=== PATIENT | male | born 1970 | race Caucasian/White ===

== ENCOUNTER 2021-04-28 16:06 | Inpatient (IN) | payer BC, MEDICAID, SELFPAY ==
[2021-04-28] VITALS (11 sets, daily range): BP systolic 129–162; BP diastolic 69–85; PULSE 80–85; RESP 16–18; TEMP 36.3–37.7; O2SAT 94–98; BMI 35.9; BMI 35.1
--- NOTE | 2021-04-28 16:21 | RAD_ITS ---
We are attempting to reach an attending provider to discuss findings. An addendum with communication details will be sent when the communication is complete. STUDY: X-RAY - LEFT FOOT CLINICAL: Male, 50 years old. infection TECHNIQUE: 3 view(s) of the foot. COMPARISON: None. FINDINGS: No acute fracture or dislocation. No destructive bone changes. Mild periosteal reaction noted along the lateral metatarsal. Joint spaces are well-maintained. Normal alignment. Marked soft tissue swelling. Plantar and lateral soft tissue gas. RAD/Foot min 3 Views IMPRESSION: 1. Moderately extensive soft tissue gas in the lateral foot suspicious for necrotizing fasciitis. Electronically Signed: Aliza Vanessa MD at 18:22 EDT Tel , Service support ,
[2021-04-28] MEDS: 0.9% Normal Saline 1,000 ML 150 ML IV (16:50)
[2021-04-28 16:54] LABS: Absolute Neutrophil Count 16.4 X10^3/uL (2.0-7.7); Basophil# 0.03 X10^3/uL; Basophil% 0.1 % (0-1); Eosinophil# 0.17 X10^3/uL; Eosinophils% 0.8 % (0-5); Hematocrit 27.3 % (40-54); Hemoglobin 9.1 g/dL (13.0-16.5); Lymphocyte % 5.9 % (19-41); Mean Corp Hgb Conc 33.3 g/dL (32-36); Mean Corpuscular Hgb 29.4 pg (27.0-32.0); Mean Corpuscular Volume 88.1 fL (80-94); Mean Platelet Vol. 10.2 fl (6.2-12.0); Monocyte# 2.16 X10^3/uL; Monocyte% 10.7 % (0-10); NRBC Flagged by Analyzer 0 % (0-5); Neutrophil # 16.38 X10^3/uL (2.7-7.7); Neutrophil % 81.1 % (47-70); POSITIVE DIFFERENTIAL YES; Platelet Count 310 K/mm3 (150-450); RBC Distribution Width SD 41.7 fl (35.1-43.9); White Blood Count 20.2 K/mm3 (4.4-11.0)
[2021-04-28 17:07] LABS: Anion Gap 11 (5-15); BUN 45 mg/dL (7-18); BUN/Creat Ratio 24.6 RATIO (10-20); Calcium,Total 8.7 mg/dL (8.5-10.1); Chloride 99 mmol/L (98-107); Creatinine, Serum 1.83 mg/dL (0.70-1.30); EST Glomerular Filtration Rate 42 mL/min (>60); Est Glom Filt Rate - Afr Amer 51 mL/min (>60); Estimated Creatinine Clearance 54.58 ml/min; Glucose 314 mg/dL (74-106); Potassium 4.6 mmol/L (3.5-5.1); Sodium Level 132 mmol/L (136-145)
[2021-04-28 17:19] LABS: Lactic Acid 1.7 mmol/L (0.4-1.9)
[2021-04-28 18:01] LABS: Differential Indicated SCAN CRITERIA MET; Platelet Estimate ADEQUATE (ADEQ)
[2021-04-28 18:02] LABS: Differential Comment SCANNED; Red Cell Morphology NORM C+C NORMAL (NORM C&C)
--- NOTE | 2021-04-28 18:37 | EX.ED.DYSGE1 ---
HPI History of Present Illness Chief Complaint: Lower Extremity Injury Informant: patient and spouse/S.O. Onset/Context/Timing Onset: Days Current Severity: Moderate Maximum Severity: Moderate Narrative Narrative: Patient present secondary to left foot wound. Patient has a history of diabetes, coronary disease, hypertension. He states about 2 weeks ago he had his feet propped up and someone noticed a wound on the bottom of his foot. Is approximately 1-1/2 cm in diameter. He was seen by a pressurization mechanic in [place] this past week who did a local debridement and placed him on doxycycline. When family changed the dressing last evening they noted the wound was significantly worse and is now extending up the outside of his foot. He had some chills last evening as well. [facility] Medical History Coronary artery disease HTN (hypertension) Type 2 diabetes mellitus Home Medications ascorbic acid (vitamin C) [Vitamin C] 500 mg PO Q12H 04/28/21 [History Last Taken Unknown] aspirin 81 mg PO DAILY 04/28/21 [History Last Taken Unknown] canagliflozin [Invokana] 100 mg PO DAILY 04/28/21 [History Last Taken Unknown] carvedilol 25 mg PO DAILY 04/28/21 [History Last Taken Unknown] doxycycline monohydrate 100 mg PO BID 04/28/21 [History Last Taken Unknown] furosemide [Lasix] 40 mg PO DAILY 04/28/21 [History Last Taken Unknown] lisinopril 20 mg PO DAILY 04/28/21 [History Last Taken Unknown] metformin 1,000 mg PO BID 04/28/21 [History Last Taken Unknown] Allergy/AdvReac Type Severity Reaction Status Date / Time No Known Allergies Allergy Verified 04/28/21 16:09 Surgical History (Updated 04/28/21 @ 17:04 by Shahzad Koehler) History of ear, nose, and throat (ENT) surgery History of quadruple bypass no surgical history Social History Smoking Status: Never smoker ROS ROS ED Constitutional Constitutional ED: Reports chills; Denies fever(s) Eyes Eyes: Denies change in vision ENT ENT ED: Denies sore throat Cardiovascular Cardiovascular: Denies chest pain Respiratory/Chest Respiratory/Chest: Denies cough or dyspnea Gastrointestinal Gastrointestinal: Denies abdominal pain, diarrhea, nausea or vomiting Genitourinary Genitourinary ED: Denies dysuria Musculoskeletal Musculoskeletal: Denies back pain Integumentary Reports rash and other Details: Left foot wound Neurologic Neurologic: Denies headache(s) or weakness Psychiatric Psychiatric: Denies anxiety or depression Endocrine Endocrinology: Denies polydipsia or polyuria Allergic/Immunologic Allergic/Immunologic ED: Denies urticaria EXAM Physical Exam Const Vital Signs: 04/28/21 16:07 Temperature 98.5 F Temperature Source Temporal Pulse Rate 83 Respiratory Rate 16 Blood Pressure 141/75 H Blood Pressure Mean 97 Pulse Ox 98 Oxygen Delivery Method Room Air Positive well nourished and well developed General Appearance ED: well developed HEENT Reports normocephalic and head/scalp atraumatic Eyes PERRL and EOMs intact bilaterally Neck supple Chest Wall inspection of chest normal and palpation of chest normal Resp normal respiratory effort and clear to auscultation bilaterally Cardio regular rate and regular rhythm GI normal to inspection, nondistended, normoactive bowel sounds Palpation: soft Extremity Extremity Narrative: 1-1/2 cm diameter ulceration to the plantar surface of the left foot near the fourth and fifth metatarsal head. Patient has a wound extending up the lateral side of the foot measuring a total of 8 x 5 cm. Neuro oriented x3 Sensorium / Orientation: alert Psych mental status grossly normal Skin no rashes or lesions noted MDM MDM MDM Narrative Medical decision making narrative: Lab work and blood cultures are ordered. Left foot x-rays are ordered. Patient is given Zosyn and vancomycin. Lab Data Attestation: I reviewed the patient's lab results. Labs: Laboratory Results - last 24 hr 04/28/21 04/28/21 04/28/21 16:30 16:30 16:30 WBC 20.2 H RBC 3.10 L Hgb 9.1 L Hct 27.3 L MCV 88.1 MCH 29.4 MCHC 33.3 RDW Std Deviation 41.7 RDW Coeff of Shant 13.0 Plt Count 310 MPV 10.2 Immature Gran % (Auto) 1.400 H Neut % (Auto) 81.1 H Lymph % (Auto) 5.9 L [place] % (Auto) 10.7 H Eos % (Auto) 0.8 Baso % (Auto) 0.1 Absolute Neuts (auto) 16.4 H Absolute Lymphs (auto) 1.20 Nucleated RBC % 0 Differential Comment SCANNED Diff Path Review May foll Platelet Estimate ADEQUATE RBC Morphology NORM C+C Sodium 132 L Potassium 4.6 Chloride 99 Carbon Dioxide 22.0 Anion Gap 11 BUN 45 H Creatinine 1.83 H Estim Creat Clear Calc 54.58 Est GFR (MDRD) Af Amer 51 L Est GFR (MDRD) Non-Af 42 L BUN/Creatinine Ratio 24.6 H Glucose 314 H Lactic Acid 1.7 Calcium 8.7 Radiography Diagnostic Testing: Radiology Impression Foot X-Ray 04/28/21 16:21 IMPRESSION: 1. Moderately extensive soft tissue gas in the lateral foot suspicious for necrotizing fasciitis. Electronically Signed: Aliza Vanessa MD at 18:22 EDT Tel , Service support , ADDENDUM: 04/28/21 1836 IMPRESSION: 1. Moderately extensive soft tissue gas in the lateral foot suspicious for necrotizing fasciitis. N.B. : The above Results were Read Back by Aliza Vanessa MD to Mabel Carvajal MD, and understanding confirmed on 04/28/2021 18:29:51 (ET). Electronically Signed: Aliza Vanessa MD at 18:22 EDT Tel , Service support , Treatment and Re-Evaluation Comments:: Foot x-rays per my interpretation reveal gas in the soft tissues. Radiologist did call with formal impression. White count is elevated to 20. Creatinine is 1.83, unknown baseline. Lactic acid is 1.7. I was able to review some labs the patient had drawn yesterday. At that time white count was 19.2 and creatinine was 1.57. I spoke with Dr. Gerber, on-call for podiatry. She will be coming into the hospital to evaluate the patient for treatment. I will speak with the hospitalist regarding admission as well. Discharge Plan Triage Chief Complaint: Lower Extremity Injury ED Provider: Mabel Carvajal Dx/Rx/DC Orders Clinical Impression: Diabetic foot infection, Necrotizing fasciitis Prescriptions: No Action furosemide [Lasix] 40 mg Tablet 40 mg PO DAILY RF: 0 carvedilol 25 mg Tablet 25 mg PO DAILY RF: 0 lisinopril 20 mg Tablet 20 mg PO DAILY RF: 0 doxycycline monohydrate 100 mg Capsule 100 mg PO BID RF: 0 metformin 1,000 mg Tablet 1,000 mg PO BID RF: 0 aspirin 81 mg Tablet 81 mg PO DAILY RF: 0 ascorbic acid (vitamin C) [Vitamin C] 500 mg Tablet Extended Release 500 mg PO Q12H RF: 0 Invokana 100 mg Tablet 100 mg PO DAILY RF: 0 Primary Care Provider: Karen Giang Referrals: Karen Giang PA [Primary Care Provider] - Disposition Disposition: Acute Care Hospital [facility]
--- NOTE | 2021-04-28 20:09 | EKG12_ITS ---
Test Reason : PRE-OP Blood Pressure : / mmHG Vent. Rate : 081 BPM Atrial Rate : 081 BPM P-R Int : 176 ms QRS Dur : 152 ms QT Int : 432 ms P-R-T Axes : 049 -76 038 degrees QTc Int : 501 ms Normal sinus rhythm Left axis deviation Right bundle branch block Inferior infarct , age undetermined Abnormal ECG Confirmed by ROLA ALEXANDRA, PAO ([id number]), newspaper photo editor MALOU CALLAHAN ([id number]) on 05/01/2021 10:42:41 AM Referred By: JULISSA Confirmed By:PAO CANELA MD
--- NOTE | 2021-04-28 20:12 | HP.PCM.HOS_ITS ---
[facility] - General General Date of Service: 04/28/21 Chief Complaint: Left foot wound, pain. [facility] Narrative GO VANESSA, is a 50 M with past medical history as mentioned above presented to the emergency room because of left foot wound and pain. This problem started 2 weeks ago with small wound in the bottom of his left foot associated with mild erythema and pain. Initially, the pain was mild but has been progressive. Pain is on the lateral aspect of the left foot, mainly when he stands up, dull aching pain, not radiating, 6-7 out of 10 in severity aggravated by standing on the left foot, associated with increasing erythema and swelling and without relievin g factor. Patient stated that the last couple of days, the wound area started to get bigger, black discolored and he continued to have left foot pain. He reported chills, no fever. He was seen at outside facility around 1 week ago, had local debridement and he was started on doxycycline. Patient stated that he did not see any improvement and last night, the wound got worse and extended up to the dorsal aspect of the left foot. In the emergency department, his blood pressure was not elevated, other vital signs were stable. Routine blood work was remarkable for leukocytosis, hemoglobin 9.1 g/dL, BUN is 45, creatinine is 1.83. Blood glucose was 314. Lactic acid was 1.7. X-ray of the left foot revealed extensive soft tissue gas in the lateral foot suspicious for necrotizing fasciitis. Patient is being admitted for left foot diabetic infection/left foot cellulitis/infected wound with suspected necrotizing fasciitis and he was found to have anemia and acute kidney injury. [facility] Home Medications ascorbic acid (vitamin C) [Vitamin C] 500 mg PO Q12H 04/28/21 [History Last Taken Unknown] aspirin 81 mg PO DAILY 04/28/21 [History Last Taken Unknown] canagliflozin [Invokana] 100 mg PO DAILY 04/28/21 [History Last Taken Unknown] carvedilol 25 mg PO DAILY 04/28/21 [History Last Taken Unknown] doxycycline monohydrate 100 mg PO BID 04/28/21 [History Last Taken Unknown] furosemide [Lasix] 40 mg PO DAILY 04/28/21 [History Last Taken Unknown] lisinopril 20 mg PO DAILY 04/28/21 [History Last Taken Unknown] metformin 1,000 mg PO BID 04/28/21 [History Last Taken Unknown] Allergy/AdvReac Type Severity Reaction Status Date / Time No Known Allergies Allergy Verified 04/28/21 16:09 no significant family history Surgical History (Updated 04/28/21 @ 20:[address] Annia Brenner MD) History of ear, nose, and throat (ENT) surgery History of quadruple bypass Social History (Updated 04/28/21 @ 20:[address] Annia Brenner MD) Smoking Status: Never smoker alcohol intake: never ROS Constitutional Constitutional: Reports chills; Denies anorexia, fatigue, fever(s) or malaise Eyes Eyes: Denies blurry vision, change in eye color, change in vision, double vision or eye pain ENT HEENT: Denies ear discharge, ear pain, epistaxis, headache(s), nasal congestion, post nasal drip or sore throat Cardiovascular Cardiovascular: Denies chest pain, dyspnea on exertion, edema, lightheadedness, orthopnea, palpitations, paroxysmal nocturnal dyspnea or syncope Respiratory/Chest Respiratory/Chest: Denies cough, dyspnea, hemoptysis, productive cough, shortness of breath at rest, shortness of breath with exertion or wheezing Gastrointestinal Gastrointestinal: Denies abdominal pain, constipation, diarrhea, hematemesis, hematochezia, melena, nausea or vomiting Genitourinary Genitourinary: Denies burning urination, dysuria, hematuria, urinary hesitancy or urinary urgency Musculoskeletal Musculoskeletal: Reports other Details: Left foot pain and redness. ; Denies arthralgias, back pain, joint pain, joint swelling, myalgias or neck pain Neurologic Neurologic: Denies confusion, dizziness, focal weakness, headache(s), numbness, paresthesias, seizures, tingling, tremor(s) or vertigo Psychiatric Psychiatric: Denies anxiety, depression, hallucinations, homicidal ideation or suicidal ideation Endocrine Endocrinology: Denies change in body appearance, cold intolerance, heat intolerance, polydipsia or polyuria Hematologic/Lymphatic Hematologic/Lymphatic: Denies easy bleeding, easy bruising or lymphadenopathy Allergic/Immunologic Allergic/Immunologic: Denies itchy eyes, rhinitis, hives or wheezing Vital Signs Vital Signs Vital Signs: 04/28/21 16:07 04/28/21 19:52 Temperature 98.5 F 99.8 F H Temperature Source Temporal Oral Pulse Rate 83 80 Respiratory Rate 16 16 Blood Pressure 141/75 H 162/85 H Blood Pressure Mean 97 110 Pulse Ox 98 96 Oxygen Delivery Method Room Air Room Air Weight Weight: 272 lb Body Mass Index (BMI) 35.9 Physical Exam Const alert, oriented x3, no apparent distress and no limitations General Appearance: cooperative HEENT normocephalic, head/scalp atraumatic, external ears normal, external nose normal and moist oral mucous membranes Eyes PERRL, EOMs intact bilaterally, conjunctivae normal and no scleral icterus General Eye: normal appearance of both eyes Neck no lymphadenopathy, supple, no meningeal signs, no JVD and no carotid bruits Lymph Lymphatic: no lymphadenopathy noted Resp normal respiratory effort, normal air movement and clear to auscultation bilaterally Auscultation: Negative for crackles, rales, rhonchi or wheezes Cardio regular rate, regular rhythm, S1 normal heart sound, S2 normal heart sound, no murmurs and no JVD GI normal to inspection, nondistended, normoactive bowel sounds, soft to palpation, non-tender and non-distended; Negative for hepatosplenomegaly GI Narrative: Obese. Extremity normal to inspection and full ROM Extremity Narrative: Trace edema, no clubbing or cyanosis. Skin no petechiae Skin Narrative: Left foot: Area of open wound/necrosis on the lateral aspect of the left foot, surrounded by significant erythema and edema, significant drainage. Tender to palpation. Neuro oriented x3, CN's II-XII intact bilaterally and moves all extremities Sensorium / Orientation: alert Speech: speech normal Motor Exam: strength 5/5 throughout Psych mental status grossly normal and affect normal Appearance: appropriate Results Lab / Micro Data Result Diagrams: 04/28/21 16:30 04/28/21 16:30 Labs: Laboratory Results - last 24 hr 04/28/21 04/28/21 04/28/21 16:30 16:30 16:30 WBC 20.2 H RBC 3.10 L Hgb 9.1 L Hct 27.3 L MCV 88.1 MCH 29.4 MCHC 33.3 RDW Std Deviation 41.7 RDW Coeff of Shant 13.0 Plt Count 310 MPV 10.2 Immature Gran % (Auto) 1.400 H Neut % (Auto) 81.1 H Lymph % (Auto) 5.9 L [place] % (Auto) 10.7 H Eos % (Auto) 0.8 Baso % (Auto) 0.1 Absolute Neuts (auto) 16.4 H Absolute Lymphs (auto) 1.20 Nucleated RBC % 0 Differential Comment SCANNED Diff Path Review May foll Platelet Estimate ADEQUATE RBC Morphology NORM C+C Sodium 132 L Potassium 4.6 Chloride 99 Carbon Dioxide 22.0 Anion Gap 11 BUN 45 H Creatinine 1.83 H Estim Creat Clear Calc 54.58 Est GFR (MDRD) Af Amer 51 L Est GFR (MDRD) Non-Af 42 L BUN/Creatinine Ratio 24.6 H Glucose 314 H Lactic Acid 1.7 Calcium 8.7 Radiology Impression Foot X-Ray 04/28/21 16:21 IMPRESSION: 1. Moderately extensive soft tissue gas in the lateral foot suspicious for necrotizing fasciitis. Electronically Signed: Aliza Vanessa MD at 18:22 EDT Tel , Service support , ADDENDUM: 04/28/21 1836 IMPRESSION: 1. Moderately extensive soft tissue gas in the lateral foot suspicious for necrotizing fasciitis. N.B. : The above Results were Read Back by Aliza Vanessa MD to Mabel Carvajal MD, and understanding confirmed on 04/28/2021 18:29:51 (ET). Electronically Signed: Aliza Vanessa MD at 18:22 EDT Tel , Service support , Assessment & Plan Assessment/Plan (1) Anemia: (2) VILMA (acute kidney injury): (3) Diabetic foot infection: (4) Necrotizing fasciitis: (5) Status post aorto-coronary artery bypass graft: (6) Coronary artery disease: (7) HTN (hypertension): (8) Diabetes mellitus, type 2: PLAN: This is a 50 years old male patient presented to the emergency room because of left foot wound, swelling and pain, found to have findings consistent with diabetic left foot infection/cellulitis/infected wound with suspected necrotizing fasciitis and also found to have acute kidney injury and anemia. #1 acute left foot diabetic foot infection/cellulitis/infected wound/suspected necrotizing fasciitis: Without evidence of sepsis or severe sepsis. X-ray of the left foot reviewed. Patient was evaluated by podiatry medicine and planning for surgery today. Plan: Admit to [facility] floor, telemetry monitoring, blood culture, wound culture, MRSA wound screen by DNA, Tylenol as needed, OxyIR as needed, IV fluids, Zofran as needed, start IV vancomycin and Zosyn, podiatry medicine consult, repeat CBC and CMP tomorrow morning, PT OT evaluation and treatment. Plan for surgery today. #2 acute kidney injury: Patient is unaware of any kidney problems in the past. Admission creatinine is 1.83, BUN is 45. Underlying CKD cannot be ruled out due to longstanding diabetes. Plan: Gentle IV fluids for hydration, input output chart, repeat BMP tomorrow morning, hold Lasix and Metformin. #3 anemia: Unknown if it is acute or chronic. It is normocytic anemia. Patient denies any active bleeding. Plan: Serum iron, ferritin, TIBC, B12, folate. #4 type 2 diabetes mellitus: ADA diet, Accu-Cheks, insulin sliding scale, check hemoglobin A1c, continue Invokana, hold Metformin. #5 CAD status post CABG: No complaints, no chest pain or shortness of breath. Plan: Routine EKG, continue aspirin, Coreg and lisinopril. #6 hypertension: Blood pressure slightly better in the ED, continue Coreg and lisinopril, start IV hydralazine as needed. #7 DVT prophylaxis: Subcu heparin. This note was generated with Active-[employer] dictation software. It may contain incorrect words, spelling, and punctuation that were not noted in checking the note before signing. Charges/Coding Visit Charges Inpatient E&M: 08476 Init Hosp L3
--- NOTE | 2021-04-28 20:17 | PCM.CONS.GEN ---
Assessment & Plan Assessment/Plan (1) Necrotizing fasciitis: (2) Non-pressure chronic ulcer of other part of left foot with necrosis of muscle: (3) Cellulitis of left foot: (4) Diabetic foot infection: (5) Coronary artery disease: (6) HTN (hypertension): (7) Diabetes mellitus, type 2: QUALIFIERS: Diabetes mellitus complication detail: with polyneuropathy Diabetes mellitus complication status: with neurologic complications Diabetes mellitus long term care social worker insulin use: without snf use Qualified Code(s): E11.42 - Type 2 diabetes mellitus with diabetic polyneuropathy PLAN: Patient seen and examined in the emergency department with present Patient noted to have ulceration with foot infection to the left lower extremity. Reviewed x-rays with the patient and demonstrating emphysema to the lateral and plantar aspect of the foot. Noted elevated white count of 20.2. Patient noted to have less of eaten at 3:30 this afternoon Upon exam examination the patient is noted the patient has some neuropathy but is still able to feel pain at the ulceration site. Wound probes to capsule and what is able to be felt of the bone feels hard upon initial exam. Discussed with patient and his the severity of the infection. Discussed various treatment options including bedside debridement, debridement in the OR, possible amputation, possible bone infection, antibiotics. Discussed that this is an infection that can lead to amputations. Discussed possibly getting an MRI to assess any bone infection involvement. Discussed that this would delay any possible surgeries in order to get this testing done. Given clinical exam as well as lab values and x-ray results it was determined that patient would go to the operating room in order to clean out the infection and assess clinically if the bone is infected at that time in order to save time. Use discussed possibility of saving the toe versus amputation with patient and the . Discussed it would be hard to identify the extent of the infection until getting into the operating room. Discussed the option of trying to save the digit with IV antibiotics if the bone is infected versus amputation. Patient is okay for amputation is felt to be necessary in order to remove the infection. Discussed possibility of wound care after the surgery in order to heal any remaining ulceration. Discussed possibility of wound VAC. Patient and are in agreement to move forward with surgical debridement of ulcerations cleaning out of the infection with possibility of amputation. Discussed with the patient all risk associated with undergoing surgery as regards to COVID-19 exposure. Discussed all risks, benefits, alternatives, and complications including but not limited to infection, delayed healing, nonhealing, blood clots, amputation, possible , and/or need for further surgery with the patient. No guarantees were given or implied. Patient agreed to proceed with the procedure. All questions answered. Discussed case with hospitalist and anesthesia both are on board with moving forward with surgery tonight pending EKG results. These are being obtained. Continue IV antibiotics with Zosyn and Vanc Podiatry will continue to follow on the floor. We will continue to follow the OR cultures. It is also noted the patient had ED wound and blood cultures obtained. Thank you for the consult please contact if any questions or concerns Alis Gerber DPM [facility] [phone] This note was generated with [employer] dictation software. It may contain incorrect words, spelling, and punctuation that were not noted in checking the note before signing. HPI Consult Data Date of Consult: 04/28/21 HPI Narrative HPI Narrative: GO VANESSA, is a 50 M who presents to the emergency department with left foot diabetic ulceration with his . Patient has an past medical history of diabetes, coronary artery disease, hypertension and recent cataract and eye surgery for diabetes complications. Patient relates that the wound started as a callus. He states that he chronically gets calluses in this area and he rips them off when they get really thick. Patient relates that this time he ripped it off about 2 weeks ago he had a wound and he saw a cotton gin yard supervisor in [place] for this wound last week where he was started on doxycycline had the wound debrided. He has been putting bag balm on the wound. Patient relates that he had an episode of nausea and vomiting with the antibiotic but he relates it to taking it on an empty stomach. 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 Patient relates that between Thursday morning Thursday evening that the ulceration got worse to the bottom as well as or tracking up the side of his foot. Patient noticed a malodor at that time and came to the emergency department this evening. He has since gotten pus out of it as well. Patient is noted to be diabetic. He states that he is last A1c in the mid 8% range which is down from 12% range. Patient relates that he has some neuropathy but still has feeling in his feet. Patient denies any nausea, fever, vomiting, chills, chest pain, shortness of breath. He does admit to some chills yesterday [facility] Medical History (Updated 04/28/21 @ 23:18 by Estuardo Luke) Anxiety Alex's palsy Myocardial infarct Home Medications ascorbic acid (vitamin C) [Vitamin C] 500 mg PO Q12H 04/28/21 [History Last Taken Unknown] aspirin 81 mg PO DAILY 04/28/21 [History Last Taken Unknown] canagliflozin [Invokana] 100 mg PO DAILY 04/28/21 [History Last Taken Unknown] carvedilol 25 mg PO DAILY 04/28/21 [History Last Taken Unknown] doxycycline monohydrate 100 mg PO BID 04/28/21 [History Last Taken Unknown] furosemide [Lasix] 40 mg PO DAILY 04/28/21 [History Last Taken Unknown] lisinopril 20 mg PO DAILY 04/28/21 [History Last Taken Unknown] metformin 1,000 mg PO BID 04/28/21 [History Last Taken Unknown] Allergy/AdvReac Type Severity Reaction Status Date / Time No Known Allergies Allergy Verified 04/28/21 16:09 Surgical History (Updated 04/28/21 @ 20:[address] Annia Brenner MD) History of ear, nose, and throat (ENT) surgery History of quadruple bypass Social History (Updated 04/28/21 @ 20:[address] Annia Brenner MD) Smoking Status: Never smoker alcohol intake: never ROS Constitutional Constitutional: Denies chills or fever(s) Cardiovascular Cardiovascular: Denies chest pain Respiratory/Chest Respiratory/Chest: Denies cough Gastrointestinal Gastrointestinal: Denies nausea or vomiting Musculoskeletal Musculoskeletal: Denies muscle cramps or muscle weakness Integumentary Integumentary: Reports wounds Neurologic Neurologic: Reports numbness and tingling Physical Exam Const alert and no apparent distress General Appearance: cooperative and comfortable HEENT Head and Scalp: atraumatic Resp normal respiratory effort Effort and Inspection: able to speak in complete sentences Extremity normal capillary refill and no calf tenderness General Extremity: edema left lower extremity and other findings Other Details: Capillary refill time less than 3 seconds noted to digits ; Negative for clubbing or cyanosis Peripheral Pulses: Yes posterior tibial pulses present bilateral diminished and dorsalis pedis pulses present bilateral diminished Skin General Skin Exam: atrophy and dry skin; Negative for ecchymosis, eschar, pallor or dermatitis Rashes: no rashes Wounds: wounds noted Wound Narrative: ulcers noted to left plantar fifth metatarsophalangeal joint at 1.5 cm diameter probing to capsule with a depth of 0.5 cm and lateral distal left foot measuring approximately 6-1/2 x 1.5 x 0.2 cm There is malodor, erythema, purulence, probing to capsule through the fifth metatarsophalangeal joint ulceration, mild streaking, fluctuation, some crepitus. Findings are consistent with emphysema seen on x-ray. Skin is atrophic and hairless. Purulent and serosanguineous drainage noted. Pain to palpation. Neuro Sensory Exam: extremities light-touch: decreased Motor Exam: strength 5/5 throughout Psych Appearance: appropriate Attitude: calm Lab / Micro Data Result Diagrams: 04/28/21 16:30 04/28/21 16:30 Labs: Laboratory Results - last 24 hr 04/28/21 04/28/21 04/28/21 16:30 16:30 16:30 WBC 20.2 H RBC 3.10 L Hgb 9.1 L Hct 27.3 L MCV 88.1 MCH 29.4 MCHC 33.3 RDW Std Deviation 41.7 RDW Coeff of Shant 13.0 Plt Count 310 MPV 10.2 Immature Gran % (Auto) 1.400 H Neut % (Auto) 81.1 H Lymph % (Auto) 5.9 L [place] % (Auto) 10.7 H Eos % (Auto) 0.8 Baso % (Auto) 0.1 Absolute Neuts (auto) 16.4 H Absolute Lymphs (auto) 1.20 Nucleated RBC % 0 Differential Comment SCANNED Diff Path Review May foll Platelet Estimate ADEQUATE RBC Morphology NORM C+C Sodium 132 L Potassium 4.6 Chloride 99 Carbon Dioxide 22.0 Anion Gap 11 BUN 45 H Creatinine 1.83 H Estim Creat Clear Calc 54.58 Est GFR (MDRD) Af Amer 51 L Est GFR (MDRD) Non-Af 42 L BUN/Creatinine Ratio 24.6 H Glucose 314 H Lactic Acid 1.7 Calcium 8.7 Radiology Impression Foot X-Ray 04/28/21 16:21 IMPRESSION: 1. Moderately extensive soft tissue gas in the lateral foot suspicious for necrotizing fasciitis. Electronically Signed: Aliza Vanessa MD at 18:22 EDT Tel , Service support , ADDENDUM: 04/28/21 1836 IMPRESSION: 1. Moderately extensive soft tissue gas in the lateral foot suspicious for necrotizing fasciitis. N.B. : The above Results were Read Back by Aliza Vanessa MD to Mabel Carvajal MD, and understanding confirmed on 04/28/2021 18:29:51 (ET). Electronically Signed: Aliza Vanessa MD at 18:22 EDT Tel , Service support ,
[2021-04-28 20:41] LABS: Bedside Glucose 222 mg/dL (70-110)
--- NOTE | 2021-04-28 20:53 | OP.PCM_ITS ---
Problems Associated Problem List Diagnoses (1) Cellulitis of left foot: (2) Non-pressure chronic ulcer of other part of left foot with necrosis of mu scle: (3) Diabetic foot infection: (4) Diabetes mellitus, type 2: (5) Necrotizing fasciitis: Report of Operation Date of Procedure: 04/28/21 Pre-Operative Diagnosis: Gas gangrene left foot Diabetic foot ulcer Cellulitis left foot Abscess left foot Post-Operative Diagnosis: Same Surgery/Procedure Performed:: Debridement left foot ulceration Description of Surgical Findings:: Hemostasis: Ankle tourniquet Anesthesia: 20 cc of one-to-one mix 0.5% Marcaine plain and 1% lidocaine plain Materials: quarter inch iodoform packing Surgeon: Alis Gerber temperature regulator pyrometer: None Type of Anesthesia: Local MAC Specimen's removed: soft tissue, culture swabs Drains: 11/05 iodoform packing Estimated Blood Loss (mL): <50 Description of Procedure: Indication for procedure: Patient is a 50-year-old male who presents emergency room with worsening left foot ulceration with his . Patient has a significant medical history of diabetes, coronary artery disease, hypertension. Patient had wound to his foot approximately 2 weeks in duration. Patient states that he saw a soc analyst in [place] last week and was started on doxycycline. Patient failed to improve and worsened yesterday and came to the emergency room tonight for worsening infection with increased odor and discoloration. X-rays were obtained showing emphysema to the plantar lateral aspect of the left foot. Podiatry was consulted and as well as hospitalist. Patient was admitted under the hospitalist and had surgical clearance obtained. Discussed with the patient and his the severity of the infection and need to go to the operating room in order to remove the infection. Discussed possibility of amputation if the wound was deep. Discussed delaying surgery in order to obtain MRI to further examine the extent of the infection versus going directly to the OR. It was decided to go directly to the OR and provide the best chance of saving the toe and clear the infection. Patient is aware that he will likely need long-term wound care after surgery with possible wound VAC therapy Discussed possibility of COVID exposure. Patient had all risk benefits alternatives the complications including but not limited to infection, delayed healing, nonhealing, need for further surgery or amputation was discussed with the patient. No guarantees were given or implied. Patient agreed to proceed with the procedure. All questions were answered. Description of procedure: Patient was seen in the preoperative holding area where chart was reviewed and patient was examined and all questions were answered to patient satisfaction. Patient then transferred to the OR and placed on the OR table in supine position. After administration of IV line IV sedation additional 20 cc of half percent Marcaine plain and 1% lidocaine plain and a one-to-one mixture was injected in ankle block type fashion. A well-padded ankle tourniquet was applied but not inflated at this time. The operative foot and ankle were then prepped and draped in the usual sterile fashion. A skin scribe was then utilized in order to draw out the incision surrounding both ulceration sites and a 15 blade was then utilized to make the incision in a through and through fashion through epidermal dermal layers into the subcutaneous tissue with all vital neurovascular structures retracted or cauterized as necessary. Incision was deepened down to the level of the abscess at which time purulent drainage was expressed. It was noted that the 2 ulcerations communicated. This was in the level of subcutaneous tissue and muscle. All pockets of pus were expressed and no further purulent drainage was then encountered. Site was then examined and all remaining devitalized tissue was removed no remaining infection or purulent drainage was seen. Tissue removed includes fibrous, devitalized, biofilm, callus and slough tissue. It is noted that the infection did not violate the periosteum or fifth MPJ capsule. The bone felt hard and did not appear infected in appearance. It was decided not to amputate the toe or violate the soft tissue layer in order to obtain bone biopsy for fear of seeding the infection into the bone. The site was then flushed with copious amounts of normal sterile saline utilizing a pulse lavage. Deep swab cultures were then obtained post lavage and sent to microbiology. Predebridement wound measurements were 3 x 4 x 0.1 cm for the lateral foot wound and plantar fifth metatarsal head ulceration measured 1 x 1 x 0.2 cm. Post debridement measurements were 7 x 5 x 2.5 cm. It is noted that the 2 wounds preoperatively communicated and skin island between the 2 was removed in order to remove all devitalized tissue. Ulceration was debrided into the level of muscle. The site was then dressed with 1/4 inch iodoform packing, 4 x 4's, ABDs, Kerlix, Gavin wrap. Patient was then sent to PACU with vital signs status intact. Podiatry will follow up with patient in the hospital. Patient will likely be started on a wound VAC tomorrow. Patient will follow up in the wound care center upon discharge Complications none Admit VTE Documentation VTE Present on Admission: Yes VTE Mechan Device Prophylaxis: SCD's
[2021-04-28 21:34] LABS: M R Staph aureus DNA By PCR Negative (Negative); Probe Check PASS; Staph aureus DNA By PCR POSITIVE (Negative)
[2021-04-28] MEDS: Bupivacaine Mpf 0.5% 30 ML VIAL (21:48)
[2021-04-28] MEDS: Lidocaine 1% (30 ml sdv) 30 ML Vial (21:48)
--- NOTE | 2021-04-28 22:52 | PCM.RX.CS ---
Consult Pharmacy has been consulted to manage selected antiobiotic: Vancomycin Type of Consult: New start Prior Doses of Antibiotics Received/Current Regimen: Medications Discontinued Medications Vancomycin HCl 1,750 mg/ (Sodium Chloride) 535 mls @ 250 mls/hr IV X1 ONE Stop: 04/28/21 18:29 Last Admin: 04/28/21 19:07 Dose: Infused Documented by: Labs: Sodium 132 mmol/L (136-145) L 04/28/21 16:30 Potassium 4.6 mmol/L (3.5-5.1) 04/28/21 16:30 Chloride 99 mmol/L (98-107) 04/28/21 16:30 Carbon Dioxide 22.0 mmol/L (21.0-32.0) 04/28/21 16:30 Anion Gap 11 (5-15) 04/28/21 16:30 BUN 45 mg/dL (7-18) H 04/28/21 16:30 Creatinine 1.83 mg/dL (0.70-1.30) H 04/28/21 16:30 Est GFR (MDRD) Af Amer 51 mL/min (>60) L 04/28/21 16:30 Est GFR (MDRD) Non-Af 42 mL/min (>60) L 04/28/21 16:30 BUN/Creatinine Ratio 24.6 RATIO (10-20) H 04/28/21 16:30 Glucose 314 mg/dL (74-106) H 04/28/21 16:30 Microbiology: Microbiology 04/28/21 20:52 Mucosa - Nose SARS-CoV-2 Antigen (Rapid) - Final Weight used for dosin kg Estimated Creatinine Clearance: 55 mL/min Goal Trough: 15-20 mcg/mL Pharmacy Plan for Drug Dosinmg given in ED, continue with 1250mg IV q12h with trough prior to 4th dose per policy. Pharmacy Service will continue to monitor and adjust dosing as required. Follow-Up Labs: Trough Vancomycin - 04/30 @ 0430
[2021-04-28 23:24] LABS: Hemoglobin A1c 9.5 % (3.8-5.6)
[2021-04-28 23:37] LABS: Erythrocyte Sedimentation Rate 37 mm/hr (0-20)
[2021-04-28] MEDS: Lactated Ringers 1,000 ML 100 ML IV (23:41)
[2021-04-28 23:51] LABS: Bedside Glucose 182 mg/dL (70-110)
[2021-04-28] MEDS: Insulin Lispro 100 UNIT/ML INSULN.PEN SC (23:58)
[2021-04-28] MEDS: Heparin Injection (Vial) 5,000 UNIT/ML VIAL 5000 UNIT SC (23:58)
[2021-04-29] VITALS (15 sets, daily range): BP systolic 131–184; BP diastolic 65–96; PULSE 76–90; RESP 18–20; TEMP 36.6–37.3; O2SAT 94–96
[2021-04-29 00:10] LABS: International Normalized Ratio 1.2; Prothrombin Time (Protime)PT. 14.2 SECONDS (11.7-14.9)
[2021-04-29 00:32] LABS: Ferritin 1226 ng/mL (26-388); Iron 17 ug/dL (65-175); Iron Binding Capacity,Total 146 ug/dL (250-450); PERCENT IRON SATURATION 11.6 % (15.0-55.0)
[2021-04-29] MEDS: oxyCODONE 5 MG Tablet PO ×2 (03:33→22:11)
[2021-04-29] MEDS: Heparin Injection (Vial) 5,000 UNIT/ML VIAL 5000 UNIT SC ×3 (05:37→21:29)
[2021-04-29] MEDS: Insulin Lispro 100 UNIT/ML INSULN.PEN SC ×4 (06:31→21:32)
[2021-04-29 06:35] LABS: Bedside Glucose 171 mg/dL (70-110)
[2021-04-29 06:57] LABS: Absolute Lymphocyte Count 1.55 X10^3/uL (0.83-4.51); Absolute Neutrophil Count 14.7 X10^3/uL (2.0-7.7); Basophil# 0.03 X10^3/uL; Basophil% 0.2 % (0-1); Eosinophil# 0.26 X10^3/uL; Eosinophils% 1.4 % (0-5); Hematocrit 25.5 % (40-54); Hemoglobin 8.4 g/dL (13.0-16.5); Lymphocyte # 1.55 X10^3/ul (0.83-4.51); Lymphocyte % 8.2 % (19-41); Mean Corp Hgb Conc 32.9 g/dL (32-36); Mean Corpuscular Hgb 29.1 pg (27.0-32.0); Mean Corpuscular Volume 88.2 fL (80-94); Mean Platelet Vol. 9.9 fl (6.2-12.0); Monocyte# 2.04 X10^3/uL; Monocyte% 10.8 % (0-10); NRBC Flagged by Analyzer 0 % (0-5); Neutrophil # 14.68 X10^3/uL (2.7-7.7); POSITIVE DIFFERENTIAL YES; Platelet Count 283 K/mm3 (150-450); RBC Distribution Width SD 41.7 fl (35.1-43.9); Red Blood Count 2.89 M/mm3 (4.6-6.2); White Blood Count 18.8 K/mm3 (4.4-11.0)
[2021-04-29 07:07] LABS: Differential Indicated SCAN CRITERIA MET
[2021-04-29 07:20] LABS: Anion Gap 11 (5-15); BUN 35 mg/dL (7-18); BUN/Creat Ratio 25.7 RATIO (10-20); Calcium,Total 8.6 mg/dL (8.5-10.1); Chloride 102 mmol/L (98-107); Creatinine, Serum 1.36 mg/dL (0.70-1.30); EST Glomerular Filtration Rate 59 mL/min (>60); Est Glom Filt Rate - Afr Amer 71 mL/min (>60); Estimated Creatinine Clearance 73.44 ml/min; Glucose 175 mg/dL (74-106); Potassium 4.4 mmol/L (3.5-5.1); Sodium Level 133 mmol/L (136-145)
--- NOTE | 2021-04-29 07:30 | PCM.PROGNOTE ---
Subjective Subjective Patient seen and examined resting comfortably. Patient denies any new pedal complaints. Patient denies any nausea, fever, chills, chest pain, shortness of breath, cough, streaking, purulence, vomiting. Patient reports no issues urinating overnight. He repeats that when he stands he has the most pain in his foot. He has taken pain meds overnight which is controlling the pain adequately. He relates that he feels better overall and is looking forward to trying breakfast Objective Data Objective Data Vital Signs: Vital Signs Temp Pulse Resp BP Pulse Ox 99.1 F 88 18 154/68 H 96 04/29/21 05:30 04/29/21 05:32 04/29/21 05:30 04/29/21 05:32 04/29/21 05:30 Oxygen Delivery Method Room Air Weight: 120.7 kg Body Mass Index (BMI) 35.1 Intake & Output: Intake and Output for Last 24 Hours 04/27/21 04/28/21 04/29/21 23:59 23:59 23:59 Intake Total 1585 / 1585 2484.08 / 2484.08 Output Total 1275 / 1275 Balance 1585 / 1585 1209.08 / 1209.08 Lab / Micro Data Result Diagrams: 04/29/21 06:45 04/29/21 06:45 Labs: Laboratory Results - last 24 hr 04/28/21 04/28/21 04/28/21 16:30 16:30 16:30 WBC 20.2 H RBC 3.10 L Hgb 9.1 L Hct 27.3 L MCV 88.1 MCH 29.4 MCHC 33.3 RDW Std Deviation 41.7 RDW Coeff of Shant 13.0 Plt Count 310 MPV 10.2 Immature Gran % (Auto) 1.400 H Neut % (Auto) 81.1 H Lymph % (Auto) 5.9 L Charlton % (Auto) 10.7 H Eos % (Auto) 0.8 Baso % (Auto) 0.1 Absolute Neuts (auto) 16.4 H Absolute Lymphs (auto) 1.20 Nucleated RBC % 0 Differential Comment SCANNED Diff Path Review May foll Platelet Estimate ADEQUATE RBC Morphology NORM C+C ESR PT INR Sodium 132 L Potassium 4.6 Chloride 99 Carbon Dioxide 22.0 Anion Gap 11 BUN 45 H Creatinine 1.83 H Estim Creat Clear Calc 54.58 Est GFR (MDRD) Af Amer 51 L Est GFR (MDRD) Non-Af 42 L BUN/Creatinine Ratio 24.6 H Glucose 314 H Hemoglobin A1c Lactic Acid 1.7 Calcium 8.7 Iron TIBC Iron Saturation Ferritin C-React Prot Ext Range S.aureus Protein A PCR MRSA (PCR) POC Glucose 04/28/21 04/28/21 04/28/21 16:30 16:30 19:56 WBC RBC Hgb Hct MCV MCH MCHC RDW Std Deviation RDW Coeff of Shant Plt Count MPV Immature Gran % (Auto) Neut % (Auto) Lymph % (Auto) Charlton % (Auto) Eos % (Auto) Baso % (Auto) Absolute Neuts (auto) Absolute Lymphs (auto) Nucleated RBC % Differential Comment Diff Path Review Platelet Estimate RBC Morphology ESR 37 H PT INR Sodium Potassium Chloride Carbon Dioxide Anion Gap BUN Creatinine Estim Creat Clear Calc Est GFR (MDRD) Af Amer Est GFR (MDRD) Non-Af BUN/Creatinine Ratio Glucose Hemoglobin A1c 9.5 H Lactic Acid Calcium Iron TIBC Iron Saturation Ferritin C-React Prot Ext Range S.aureus Protein A PCR POSITIVE H MRSA (PCR) Negative POC Glucose 04/28/21 04/28/21 04/28/21 20:31 23:27 23:39 WBC RBC Hgb Hct MCV MCH MCHC RDW Std Deviation RDW Coeff of Shant Plt Count MPV Immature Gran % (Auto) Neut % (Auto) Lymph % (Auto) Charlton % (Auto) Eos % (Auto) Baso % (Auto) Absolute Neuts (auto) Absolute Lymphs (auto) Nucleated RBC % Differential Comment Diff Path Review Platelet Estimate RBC Morphology ESR PT 14.2 INR 1.2 Sodium Potassium Chloride Carbon Dioxide Anion Gap BUN Creatinine Estim Creat Clear Calc Est GFR (MDRD) Af Amer Est GFR (MDRD) Non-Af BUN/Creatinine Ratio Glucose Hemoglobin A1c Lactic Acid Calcium Iron TIBC Iron Saturation Ferritin C-React Prot Ext Range S.aureus Protein A PCR MRSA (PCR) POC Glucose 222 H 182 H 04/28/21 04/29/21 04/29/21 23:39 06:28 06:45 WBC 18.8 H RBC 2.89 L Hgb 8.4 L Hct 25.5 L MCV 88.2 MCH 29.1 MCHC 32.9 RDW Std Deviation 41.7 RDW Coeff of Shant 13.0 Plt Count 283 MPV 9.9 Immature Gran % (Auto) 1.400 H Neut % (Auto) 78.0 H Lymph % (Auto) 8.2 L Charlton % (Auto) 10.8 H Eos % (Auto) 1.4 Baso % (Auto) 0.2 Absolute Neuts (auto) 14.7 H Absolute Lymphs (auto) 1.55 Nucleated RBC % 0 Differential Comment Diff Path Review May foll Platelet Estimate RBC Morphology ESR PT INR Sodium Potassium Chloride Carbon Dioxide Anion Gap BUN Creatinine Estim Creat Clear Calc Est GFR (MDRD) Af Amer Est GFR (MDRD) Non-Af BUN/Creatinine Ratio Glucose Hemoglobin A1c Lactic Acid Calcium Iron 17 L TIBC 146 L Iron Saturation 11.6 L Ferritin 1226 H C-React Prot Ext Range 211.00 H S.aureus Protein A PCR MRSA (PCR) POC Glucose 171 H 04/29/21 06:45 WBC RBC Hgb Hct MCV MCH MCHC RDW Std Deviation RDW Coeff of Shant Plt Count MPV Immature Gran % (Auto) Neut % (Auto) Lymph % (Auto) Charlton % (Auto) Eos % (Auto) Baso % (Auto) Absolute Neuts (auto) Absolute Lymphs (auto) Nucleated RBC % Differential Comment Diff Path Review Platelet Estimate RBC Morphology ESR PT INR Sodium 133 L Potassium 4.4 Chloride 102 Carbon Dioxide 20.0 L Anion Gap 11 BUN 35 H Creatinine 1.36 H Estim Creat Clear Calc 73.44 Est GFR (MDRD) Af Amer 71 Est GFR (MDRD) Non-Af 59 L BUN/Creatinine Ratio 25.7 H Glucose 175 H Hemoglobin A1c Lactic Acid Calcium 8.6 Iron TIBC Iron Saturation Ferritin C-React Prot Ext Range S.aureus Protein A PCR MRSA (PCR) POC Glucose Micro: Microbiology 04/28/21 20:52 Mucosa - Nose SARS-CoV-2 Antigen (Rapid) - Final Radiography Diagnostic Testing: Radiology Impression Foot X-Ray 04/28/21 16:21 IMPRESSION: 1. Moderately extensive soft tissue gas in the lateral foot suspicious for necrotizing fasciitis. Electronically Signed: Aliza Vanessa MD at 18:22 EDT Tel , Service support , ADDENDUM: 06/27/21 1836 IMPRESSION: 1. Moderately extensive soft tissue gas in the lateral foot suspicious for necrotizing fasciitis. N.B. : The above Results were Read Back by Aliza Vanessa MD to Mabel Carvajal MD, and understanding confirmed on 04/28/2021 18:29:51 (ET). Electronically Signed: Aliza Vanessa MD at 18:22 EDT Tel , Service support , Physical Exam Const alert and no apparent distress General Appearance: cooperative and comfortable Resp normal respiratory effort Effort and Inspection: able to speak in complete sentences Extremity normal capillary refill and no calf tenderness General Extremity: edema left lower extremity and other findings Other Details: Capillary refill time less than 3 seconds noted to digits ; Negative for clubbing or cyanosis Skin General Skin Exam: atrophy and dry skin; Negative for ecchymosis, eschar, pallor or dermatitis Rashes: no rashes Wounds: wounds noted Wound Narrative: ulcer noted to left plantar lateral forefoot with exposed fifth MPJ capsule and muscle. Malodor has resolved. No further purulence was expressed. Erythema and edema have marked improvement from prior to surgery. No further crepitus or fluctuation noted. Skin is atrophic and hairless. Serosanguineous drainage noted. Pain to palpation especially plantarly noted. 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 Discussed starting wound VAC today. Saw patient with wound care nurse who is on board with this plan. I recommend discharge plan with wound VAC and home health care. Patient noted to have white blood cell count of 18 down from 20 yesterday we will continue to monitor. Hemoglobin A1c of 9.5%. ESR noted to be 37 which is noted to be elevated but less than 70 which is indicative of osteomyelitis. Can order MRI to further rule out osteomyelitis. Is noted at the wound does not probe to bone which is also less concerning for osteomyelitis. We will order LEAS as to assess blood flow and healing potential Follow cultures which are pending Continue IV antibiotics with Zosyn and Vanc Discussed importance of smoking cessation, blood sugar control, weight management, offloading, proper nutrition, and hygiene to optimize healing potential. Discussed starting Winston nutritional supplementation. Patient also noted to have nutrition consult. Patient noted to be obese and have elevated hemoglobin A1c both of which are significant for healing impairment. Discussed taking time off of work to best allow healing. Patient to be nonweightbearing to left lower extremity. Can do some transfers to heal if necessary. Noted surgical shoe is ordered. Continue to ice and elevate. please contact if any questions or concerns Patient to follow-up with myself at the wound care center upon discharge. Alis Gerber [facility] [phone] This note was generated with [employer] dictation software. It may contain incorrect words, spelling, and punctuation that were not noted in checking the note before signing.
--- NOTE | 2021-04-29 07:42 | ART_ITS ---
Reason For Study: Ulcer Procedure A bilateral lower extremity continuous wave Doppler with analog waveform analysis,segmental pressures,and ankle brachial indexes without exercise. Left Segmental Pressures Left brachial= 142mmHg. Left posterior tibial artery = >254mmHg. Left dorsalis pedis artery = >254mmHg. Left digit = 71 mmHg. The left dorsalis pedis waveforms are triphasic. The left posterior tibial artery waveforms are triphasic. Right Segmental Pressures Right brachial= 152mmHg. Right posterior tibial artery = >254mmHg. Right dorsalis pedis artery = 219mmHg. Right digit = 119 mmHg. The right dorsalis pedis waveforms are triphasic. The right posterior tibial artery waveforms are triphasic. Indices The right ankle brachial index by the dorsalis pedis is 1.44. The right ankle brachial index by the posterior tibial artery is NC. The right digital-brachial index is 0.78. The left ankle brachial index by the dorsalis pedis is NC. The left ankle brachial index by the posterior tibial artery is NC. The left digital-brachial index is 0.47. VL/Lower Ext Art Exam w/o Exercis Interpretation Summary Ankle brachial indices bilaterally appear to be an accurate and nonobtainable s econdary to artificially elevated systolic pressure. This is likely secondary to medial marck cification of vessel lewis. Bilateral PT and DP Doppler waveforms are triphasic suggesting a more mild degr ee of large vessel disease despite the noncompressible vessels. It is of note that bilateral volume pulse recordings appear to be maintained an d normal as well Right digital brachial index normal at 0.78 with abnormal left digital brachial index of 0.47 possibly consistent with small vessel disease. Clinical correlation would be ap propriate Ordering Physician: Alis Gerber Referring Physician: Karen Giang Performed By: Janice Martínez RVT and Student
[2021-04-29] MEDS: Aspirin 81 MG TAB.CHEW PO (07:51)
[2021-04-29] MEDS: Carvedilol 25 MG Tablet PO (07:51)
[2021-04-29] MEDS: Lisinopril 20 MG Tablet PO (07:51)
[2021-04-29] MEDS: Empagliflozin 25 MG Tablet PO (07:54)
[2021-04-29] MEDS: Juven (unflavored) Packet 1 PACKET PO ×2 (07:57→16:03)
--- NOTE | 2021-04-29 08:22 | NURSING ---
wound photo: left lateral foot
--- NOTE | 2021-04-29 10:05 | CASEMGMT ---
RN CM Face to Face with patient for initial transition planning/care coordination assessment. RN CM introduced self and role at [facility]. Patient lying in bed, alert and oriented. Patient willing to participate in assessment and is able to answer all questions appropriately. Care providers, pharmacy, and demographics verified. Patient wishes to discharge home and will need HHC for wound vac changes. Patient was provided a list of HHC providers including quality and resource use data and consistent with the patient?s preferred geographic region, medical needs, and insurance network. Patient to review list and provided preferences. Patient states he has no further needs or concerns at this time. CM to follow for discharge planning needs that may arise. PCP: Padmaja FILTER PRESS PUMPER Specialists: Byron software systems analyst Cassie Preferred Pharmacy: [facility] Insurance: [employer] Prescription Benefit: yes Living Will/HPOA: none LNOK: Living Arrangements: Patient lives with in a single story home with 6 steps and railing to enter the home. Patient states he is independent at home. Transportation: self/ DME/HHC: Patient states he has shower seat, raised toilet, crutches, walker, wheelchair, and grab bars at home. Patient denies previous HHC. Disposition Plan: Patient to discharge home with HHC, family support, and follow-up plans in place. Janice WASHINGTON, RN, CM
[2021-04-29 11:21] LABS: Bedside Glucose 213 mg/dL (70-110)
--- NOTE | 2021-04-29 12:03 | PN.HOSP_ITS ---
Subjective Subjective Patient seen and examined. He has no complaints. Pain is well controlled. Review of systems is otherwise negative. Objective Data Objective Data Vital Signs: Vital Signs Temp Pulse Resp BP Pulse Ox 98.7 F 85 20 H 152/73 H 95 04/29/21 09:34 04/29/21 09:34 04/29/21 09:34 04/29/21 09:34 04/29/21 09:34 Oxygen Delivery Method Room Air Weight: 266 lb 1.567 oz Body Mass Index (BMI) 35.1 Intake & Output: Intake and Output for Last 24 Hours 04/27/21 04/28/21 04/29/21 23:59 23:59 23:59 Intake Total 1585 / 1585 2534.08 / 2534.08 Output Total 2100 / 2100 Balance 1585 / 1585 434.08 / 434.08 Lab / Micro Data Result Diagrams: 04/29/21 06:45 04/29/21 06:45 Labs: Laboratory Results - last 24 hr 04/28/21 04/28/21 04/28/21 16:30 16:30 16:30 WBC 20.2 H RBC 3.10 L Hgb 9.1 L Hct 27.3 L MCV 88.1 MCH 29.4 MCHC 33.3 RDW Std Deviation 41.7 RDW Coeff of Shant 13.0 Plt Count 310 MPV 10.2 Immature Gran % (Auto) 1.400 H Neut % (Auto) 81.1 H Lymph % (Auto) 5.9 L Zapata % (Auto) 10.7 H Eos % (Auto) 0.8 Baso % (Auto) 0.1 Absolute Neuts (auto) 16.4 H Absolute Lymphs (auto) 1.20 Nucleated RBC % 0 Differential Comment SCANNED Diff Path Review May foll Platelet Estimate ADEQUATE RBC Morphology NORM C+C ESR PT INR Sodium 132 L Potassium 4.6 Chloride 99 Carbon Dioxide 22.0 Anion Gap 11 BUN 45 H Creatinine 1.83 H Estim Creat Clear Calc 54.58 Est GFR (MDRD) Af Amer 51 L Est GFR (MDRD) Non-Af 42 L BUN/Creatinine Ratio 24.6 H Glucose 314 H Hemoglobin A1c Lactic Acid 1.7 Calcium 8.7 Iron TIBC Iron Saturation Ferritin C-React Prot Ext Range S.aureus Protein A PCR MRSA (PCR) POC Glucose 04/28/21 04/28/21 04/28/21 16:30 16:30 19:56 WBC RBC Hgb Hct MCV MCH MCHC RDW Std Deviation RDW Coeff of Shant Plt Count MPV Immature Gran % (Auto) Neut % (Auto) Lymph % (Auto) Zapata % (Auto) Eos % (Auto) Baso % (Auto) Absolute Neuts (auto) Absolute Lymphs (auto) Nucleated RBC % Differential Comment Diff Path Review Platelet Estimate RBC Morphology ESR 37 H PT INR Sodium Potassium Chloride Carbon Dioxide Anion Gap BUN Creatinine Estim Creat Clear Calc Est GFR (MDRD) Af Amer Est GFR (MDRD) Non-Af BUN/Creatinine Ratio Glucose Hemoglobin A1c 9.5 H Lactic Acid Calcium Iron TIBC Iron Saturation Ferritin C-React Prot Ext Range S.aureus Protein A PCR POSITIVE H MRSA (PCR) Negative POC Glucose 04/28/21 04/28/21 04/28/21 20:31 23:27 23:39 WBC RBC Hgb Hct MCV MCH MCHC RDW Std Deviation RDW Coeff of Shant Plt Count MPV Immature Gran % (Auto) Neut % (Auto) Lymph % (Auto) Zapata % (Auto) Eos % (Auto) Baso % (Auto) Absolute Neuts (auto) Absolute Lymphs (auto) Nucleated RBC % Differential Comment Diff Path Review Platelet Estimate RBC Morphology ESR PT 14.2 INR 1.2 Sodium Potassium Chloride Carbon Dioxide Anion Gap BUN Creatinine Estim Creat Clear Calc Est GFR (MDRD) Af Amer Est GFR (MDRD) Non-Af BUN/Creatinine Ratio Glucose Hemoglobin A1c Lactic Acid Calcium Iron TIBC Iron Saturation Ferritin C-React Prot Ext Range S.aureus Protein A PCR MRSA (PCR) POC Glucose 222 H 182 H 04/28/21 04/29/21 04/29/21 23:39 06:28 06:45 WBC 18.8 H RBC 2.89 L Hgb 8.4 L Hct 25.5 L MCV 88.2 MCH 29.1 MCHC 32.9 RDW Std Deviation 41.7 RDW Coeff of Shant 13.0 Plt Count 283 MPV 9.9 Immature Gran % (Auto) 1.400 H Neut % (Auto) 78.0 H Lymph % (Auto) 8.2 L Zapata % (Auto) 10.8 H Eos % (Auto) 1.4 Baso % (Auto) 0.2 Absolute Neuts (auto) 14.7 H Absolute Lymphs (auto) 1.55 Nucleated RBC % 0 Differential Comment Diff Path Review May foll Platelet Estimate RBC Morphology ESR PT INR Sodium Potassium Chloride Carbon Dioxide Anion Gap BUN Creatinine Estim Creat Clear Calc Est GFR (MDRD) Af Amer Est GFR (MDRD) Non-Af BUN/Creatinine Ratio Glucose Hemoglobin A1c Lactic Acid Calcium Iron 17 L TIBC 146 L Iron Saturation 11.6 L Ferritin 1226 H C-React Prot Ext Range 211.00 H S.aureus Protein A PCR MRSA (PCR) POC Glucose 171 H 04/29/21 04/29/21 06:45 11:09 WBC RBC Hgb Hct MCV MCH MCHC RDW Std Deviation RDW Coeff of Shant Plt Count MPV Immature Gran % (Auto) Neut % (Auto) Lymph % (Auto) Zapata % (Auto) Eos % (Auto) Baso % (Auto) Absolute Neuts (auto) Absolute Lymphs (auto) Nucleated RBC % Differential Comment Diff Path Review Platelet Estimate RBC Morphology ESR PT INR Sodium 133 L Potassium 4.4 Chloride 102 Carbon Dioxide 20.0 L Anion Gap 11 BUN 35 H Creatinine 1.36 H Estim Creat Clear Calc 73.44 Est GFR (MDRD) Af Amer 71 Est GFR (MDRD) Non-Af 59 L BUN/Creatinine Ratio 25.7 H Glucose 175 H Hemoglobin A1c Lactic Acid Calcium 8.6 Iron TIBC Iron Saturation Ferritin C-React Prot Ext Range S.aureus Protein A PCR MRSA (PCR) POC Glucose 213 H Micro: Microbiology 04/28/21 20:52 Mucosa - Nose SARS-CoV-2 Antigen (Rapid) - Final Radiography Diagnostic Testing: Radiology Impression Foot X-Ray 04/28/21 16:21 IMPRESSION: 1. Moderately extensive soft tissue gas in the lateral foot suspicious for necrotizing fasciitis. Electronically Signed: Aliza Vanessa MD at 18:22 EDT Tel , Service support , ADDENDUM: 04/28/21 [id number] IMPRESSION: 1. Moderately extensive soft tissue gas in the lateral foot suspicious for necrotizing fasciitis. N.B. : The above Results were Read Back by Aliza Vanessa MD to Mabel Carvajal MD, and understanding confirmed on 04/28/2021 18:29:51 (ET). Electronically Signed: Aliza Vanessa MD at 18:22 EDT Tel , Service support , Physical Exam Const alert, oriented x3 and no apparent distress Exam Limitations: no limitations Nutritional Appearance: overweight HEENT head/scalp atraumatic and moist oral mucous membranes Head and Scalp: normocephalic Eyes PERRL, EOMs intact bilaterally and conjunctivae normal Neck no lymphadenopathy, supple, no JVD and no carotid bruits Cardio regular rate, regular rhythm, S1 normal heart sound, S2 normal heart sound and no murmurs Extremity normal to inspection, full ROM and no clubbing, cyanosis or edema Peripheral Pulses: Yes pulses 2+ throughout Skin Skin Narrative: left foot wrapped in bandage, with wound drain in place Neuro oriented x3 Sensorium / Orientation: awake, alert and oriented to person Psych affect normal Assessment & Plan Assessment/Plan (1) Diabetic foot infection: (2) Necrotizing fasciitis: PLAN: #cellulitis and necrotising fascitis of the LLE * s/p debridement by podiatry * wound cultues pending * wound vac in place. * PT/OT on board * ID consulted * on oxycodone an IV morphine for pain * On IV vancomycin and Zosyn. * #Acute on chronic anemia: * Hemoglobin is down to 8.4 from 9.1 on admission. * Debridement may have contributed to this. Will trend hemoglobin. * Transfuse if H BS less than 7. * #VILMA * Creatinine is trended down to 1.36 from 1.83 on admission. Continue gentle hydration with IV fluids. * #Type 2 diabetes mellitus * Poorly controlled. A1c is 9.5. On Invokana. Insulin sliding scale. Checks AC at bedtime. Metformin on hold on account of VILMA * #CAD s/p CABG: On aspirin and Coreg. Lisinopril held on account of VILMA #Hypertension: On Coreg. Lisinopril on hold on account of VILMA. Insulin sliding scale. Accu-Cheks AC at bedtime. DVT prophylaxis: heparin Charges/Coding Visit Charges Inpatient E&M: 83174 Subs Hosp L3
[2021-04-29] MEDS: Lactated Ringers 1,000 ML 100 ML IV (12:11)
[2021-04-29 13:53] LABS: Pathologist Review Reviewed
[2021-04-29 14:20] LABS: Vitamin B12 386 pg/mL (211-911)
--- NOTE | 2021-04-29 14:35 | CASEMGMT ---
Addendum entered by Cyndie Monae 04/29/21 16:24: Received tc back from Lashae Mustafa at [facility] who states the [facility] office has closed and they do not have an office who is covering. JUANCHO CISNEROS to continue to work on HHC tomorrow and discuss option of [facility] with pt. Addendum entered by Cyndie Monae 04/29/21 15:59: Received tc back from [facility], they are unable to take pt due to service area. JUANCHO CISNEROS back into pt room to obtain other options. Pt refuses to have [facility]. TC to [place], [facility], [facility], [facility], [facility]- unable to accept due to staffing or service area. TC to [facility], awaiting acceptance. Original Note: JUANCHO CISNEROS in to pt room. Pt at bedside and nurse Hai in room. Requested pt choices for [facility]. Pt states he thinks he had [facility] in the past and would like them. Other choices were [facility], [place] and [facility]. TC to [facility], spoke to juliet Montejo. He states that they do not service pt area. TC to [facility] and referral faxed per request. Will await acceptance.
--- NOTE | 2021-04-29 14:54 | CASEMGMT ---
RN CM Face to Face with patient for initial transition planning/care coordination assessment. RN CM introduced self and role at [facility]. Patient lying in bed, alert and oriented. Patient willing to participate in assessment and is able to answer all questions appropriately. Care providers, pharmacy, and demographics verified. Patient wishes to discharge home and will need HHC for wound vac changes. Patient was provided a list of HHC providers including quality and resource use data and consistent with the patient?s preferred geographic region, medical needs, and insurance network. Patient to review list and provided preferences. Patient states he has no further needs or concerns at this time. CM to follow for discharge planning needs that may arise. PCP: Padmaja AIRCRAFT STRUCTURAL FITTER Specialists: Byron seismic observer Cassie Preferred Pharmacy: [facility] Insurance: [employer] Prescription Benefit: yes Living Will/HPOA: none LNOK: Living Arrangements: Patient lives with in a single story home with 6 steps and railing to enter the home. Patient states he is independent at home. Transportation: self/ DME/HHC: Patient states he has shower seat, raised toilet, crutches, walker, wheelchair, and grab bars at home. Patient denies previous HHC. Disposition Plan: Patient to discharge home with HHC, family support, and follow-up plans in place. Janice WASHINGTON, RN, CM
[2021-04-29 16:15] LABS: Bedside Glucose 209 mg/dL (70-110)
[2021-04-29] MEDS: hydrALAZINE 20 MG/ML Vial 10 MG IV (21:38)
[2021-04-29 21:45] LABS: Bedside Glucose 266 mg/dL (70-110)
[2021-04-30] VITALS (7 sets, daily range): BP systolic 155–164; BP diastolic 74–83; PULSE 80–90; RESP 16–20; TEMP 36.7–36.9; O2SAT 95–97
[2021-04-30] MEDS: Lactated Ringers 1,000 ML 100 ML IV (02:33)
[2021-04-30 04:37] LABS: Absolute Lymphocyte Count 1.73 X10^3/uL (0.83-4.51); Absolute Neutrophil Count 9.9 X10^3/uL (2.0-7.7); Basophil# 0.05 X10^3/uL; Basophil% 0.4 % (0-1); Eosinophil# 0.48 X10^3/uL; Eosinophils% 3.4 % (0-5); Hematocrit 26.8 % (40-54); Hemoglobin 8.7 g/dL (13.0-16.5); Lymphocyte # 1.73 X10^3/ul (0.83-4.51); Lymphocyte % 12.3 % (19-41); Mean Corp Hgb Conc 32.5 g/dL (32-36); Mean Corpuscular Volume 89.3 fL (80-94); Mean Platelet Vol. 10.3 fl (6.2-12.0); Monocyte# 1.56 X10^3/uL; Monocyte% 11.1 % (0-10); NRBC Flagged by Analyzer 0 % (0-5); Neutrophil # 9.86 X10^3/uL (2.7-7.7); Neutrophil % 69.9 % (47-70); POSITIVE DIFFERENTIAL YES; Platelet Count 309 K/mm3 (150-450); RBC Distribution Width CV 12.8 % (11.6-14.6); White Blood Count 14.1 K/mm3 (4.4-11.0)
[2021-04-30 04:39] LABS: Differential Indicated SCAN CRITERIA MET
[2021-04-30 05:04] LABS: Anion Gap 11 (5-15); BUN 34 mg/dL (7-18); BUN/Creat Ratio 30.9 RATIO (10-20); Calcium,Total 8.5 mg/dL (8.5-10.1); Chloride 104 mmol/L (98-107); EST Glomerular Filtration Rate 75 mL/min (>60); Est Glom Filt Rate - Afr Amer 91 mL/min (>60); Glucose 188 mg/dL (74-106); Potassium 4.7 mmol/L (3.5-5.1); Sodium Level 134 mmol/L (136-145)
--- NOTE | 2021-04-30 05:13 | PCM.RX.CS ---
Consult Pharmacy has been consulted to manage selected antiobiotic: Vancomycin Type of Consult: Follow-up Suspected Infection: Skin/Soft tissue Prior Doses of Antibiotics Received/Current Regimen: Medications Vancomycin HCl 1,250 mg/ (Sodium Chloride) 275 mls @ 167 mls/hr IV Q12H SAIMA Last Admin: 04/29/21 18:53 Dose: Infused Labs: Sodium 134 mmol/L (136-145) L 04/30/21 03:50 Potassium 4.7 mmol/L (3.5-5.1) 04/30/21 03:50 Chloride 104 mmol/L (98-107) 04/30/21 03:50 Carbon Dioxide 19.0 mmol/L (21.0-32.0) L 04/30/21 03:50 Anion Gap 11 (5-15) 04/30/21 03:50 BUN 34 mg/dL (7-18) H 04/30/21 03:50 Creatinine 1.10 mg/dL (0.70-1.30) 04/30/21 03:50 Est GFR (MDRD) Af Amer 91 mL/min (>60) 04/30/21 03:50 Est GFR (MDRD) Non-Af 75 mL/min (>60) 04/30/21 03:50 BUN/Creatinine Ratio 30.9 RATIO (10-20) H 04/30/21 03:50 Glucose 188 mg/dL (74-106) H 04/30/21 03:50 Vancomycin Trough 16.0 ug/mL (5.0-15.0) H 04/30/21 03:50 Microbiology: Microbiology 04/28/21 Unknown Wound Abcess - Aerobic & Anaerobic Swabs Gram Stain - Final 04/28/21 Unknown Wound Abcess - Aerobic & Anaerobic Swabs Wound Culture - Preliminary Proteus sp. Beta hemolytic organism 04/28/21 19:56 Wound - Left Foot Gram Stain - Final 04/28/21 19:56 Wound - Left Foot Wound Culture - Preliminary Proteus sp. Beta hemolytic organism 04/28/21 20:52 Mucosa - Nose SARS-CoV-2 Antigen (Rapid) - Final Weight used for dosin.7 kg Goal Trough: 15-20 mcg/mL Pharmacy Plan for Drug Dosing: Vancomycin trough level of 16.0 was within the target range of 15-20. Will continue same dosing and re-draw trough 05/03/21. Pharmacy Service will continue to monitor and adjust dosing as required. Follow-Up Labs: Trough Vancomycin Labs to be done on [date and time ordered]: 05/03/21 @1225
[2021-04-30] MEDS: Heparin Injection (Vial) 5,000 UNIT/ML VIAL 5000 UNIT SC ×2 (06:16→14:06)
[2021-04-30] MEDS: Insulin Lispro 100 UNIT/ML INSULN.PEN SC ×2 (06:20→10:41)
[2021-04-30 06:26] LABS: Bedside Glucose 172 mg/dL (70-110)
--- NOTE | 2021-04-30 07:52 | PN.HOSP_ITS ---
Subjective Subjective Patient seen and examined. He had an uneventful night and pain is well controlled. Review of systems otherwise negative. He has remained hemodynamically stable. Objective Data Objective Data Vital Signs: Vital Signs Temp Pulse Resp BP Pulse Ox 98.0 F 89 16 164/74 H 97 04/30/21 03:30 04/30/21 03:37 04/30/21 03:30 04/30/21 03:30 04/30/21 03:30 Oxygen Delivery Method Room Air Weight: 266 lb 1.567 oz Body Mass Index (BMI) 35.1 Intake & Output: Intake and Output for Last 24 Hours 04/28/21 04/29/21 04/30/21 23:59 23:59 23:59 Intake Total 1585 / 1585 3742.42 / 4342.42 1990.67 / 1990. Output Total 3750 / 3750 1825 / 1825 Balance 1585 / 1585 -7.58 / 592.42 166.67 / 166.67 Lab / Micro Data Result Diagrams: 04/30/21 03:50 04/30/21 03:50 Labs: Laboratory Results - last 24 hr 04/28/21 04/28/21 04/29/21 16:30 23:39 11:09 WBC RBC Hgb Hct MCV MCH MCHC RDW Std Deviation RDW Coeff of Shant Plt Count MPV Immature Gran % (Auto) Neut % (Auto) Lymph % (Auto) [place] % (Auto) Eos % (Auto) Baso % (Auto) Absolute Neuts (auto) Absolute Lymphs (auto) Nucleated RBC % Diff Path Review Reviewed Sodium Potassium Chloride Carbon Dioxide Anion Gap BUN Creatinine Estim Creat Clear Calc Est GFR (MDRD) Af Amer Est GFR (MDRD) Non-Af BUN/Creatinine Ratio Glucose Calcium Vitamin B12 386 Vancomycin Trough POC Glucose 213 H 04/29/21 04/29/21 04/30/21 16:00 21:32 03:50 WBC RBC Hgb Hct MCV MCH MCHC RDW Std Deviation RDW Coeff of Shant Plt Count MPV Immature Gran % (Auto) Neut % (Auto) Lymph % (Auto) [place] % (Auto) Eos % (Auto) Baso % (Auto) Absolute Neuts (auto) Absolute Lymphs (auto) Nucleated RBC % Diff Path Review Sodium Potassium Chloride Carbon Dioxide Anion Gap BUN Creatinine Estim Creat Clear Calc Est GFR (MDRD) Af Amer Est GFR (MDRD) Non-Af BUN/Creatinine Ratio Glucose Calcium Vitamin B12 Vancomycin Trough 16.0 H POC Glucose 209 H 266 H 04/30/21 04/30/21 04/30/21 03:50 03:50 06:19 WBC 14.1 H RBC 3.00 L Hgb 8.7 L Hct 26.8 L MCV 89.3 MCH 29.0 MCHC 32.5 RDW Std Deviation 42.0 RDW Coeff of Shant 12.8 Plt Count 309 MPV 10.3 Immature Gran % (Auto) 2.900 H Neut % (Auto) 69.9 Lymph % (Auto) 12.3 L [place] % (Auto) 11.1 H Eos % (Auto) 3.4 Baso % (Auto) 0.4 Absolute Neuts (auto) 9.9 H Absolute Lymphs (auto) 1.73 Nucleated RBC % 0 [address] Review May foll Sodium 134 L Potassium 4.7 Chloride 104 Carbon Dioxide 19.0 L Anion Gap 11 BUN 34 H Creatinine 1.10 Estim Creat Clear Calc 90.80 Est GFR (MDRD) Af Amer 91 Est GFR (MDRD) Non-Af 75 BUN/Creatinine Ratio 30.9 H Glucose 188 H Calcium 8.5 Vitamin B12 Vancomycin Trough POC Glucose 172 H Micro: Microbiology 04/28/21 Unknown Wound Abcess - Aerobic & Anaerobic Swabs Gram Stain - Final 04/28/21 Unknown Wound Abcess - Aerobic & Anaerobic Swabs Wound Culture - Preliminary Proteus sp. Beta hemolytic organism 04/28/21 19:56 Wound - Left Foot Gram Stain - Final 04/28/21 19:56 Wound - Left Foot Wound Culture - Preliminary Proteus sp. Beta hemolytic organism 04/28/21 20:52 Mucosa - Nose SARS-CoV-2 Antigen (Rapid) - Final Radiography Diagnostic Testing: Radiology Impression Extremity Arterial Study 04/29/21 07:42 Interpretation Summary Ankle brachial indices bilaterally appear to be an accurate and nonobtainable secondary to artificially elevated systolic pressure. This is likely secondary to medial calcification of vessel lewis. Bilateral PT and DP Doppler waveforms are triphasic suggesting a more mild degree of large vessel disease despite the noncompressible vessels. It is of note that bilateral volume pulse recordings appear to be maintained and normal as well Right digital brachial index normal at 0.78 with abnormal left digital brachial index of 0.47 possibly consistent with small vessel disease. Clinical correlation would be appropriate Ordering Physician: Alis Gerber Referring Physician: Karen Giang Performed By: Janice Martínez RVT and Student Physical Exam Const alert, oriented x3, no apparent distress and no limitations General Appearance: cooperative Exam Limitations: no limitations Nutritional Appearance: overweight HEENT normocephalic, head/scalp atraumatic, external ears normal, external nose normal and moist oral mucous membranes Head and Scalp: normocephalic Eyes PERRL, EOMs intact bilaterally, conjunctivae normal and no scleral icterus General Eye: normal appearance of both eyes Neck no lymphadenopathy, supple, no meningeal signs, no JVD and no carotid bruits Lymph Lymphatic: no lymphadenopathy noted Resp normal respiratory effort, normal air movement and clear to auscultation bilaterally Auscultation: Negative for crackles, rales, rhonchi or wheezes Cardio regular rate, regular rhythm, S1 normal heart sound, S2 normal heart sound, no murmurs and no JVD GI normal to inspection, nondistended, normoactive bowel sounds, soft to palpation, non-tender and non-distended; Negative for hepatosplenomegaly GI Narrative: Obese. Extremity normal to inspection, full ROM and no clubbing, cyanosis or edema Extremity Narrative: Trace edema, no clubbing or cyanosis. Peripheral Pulses: Yes pulses 2+ throughout Skin no petechiae Skin Narrative: left foot wrapped in bandage, with wound drain in place Neuro oriented x3, CN's II-XII intact bilaterally and moves all extremities Sensorium / Orientation: awake, alert and oriented to person Speech: speech normal Motor Exam: strength 5/5 throughout Psych mental status grossly normal and affect normal Appearance: appropriate Assessment & Plan Assessment/Plan (1) Diabetic foot infection: (2) Necrotizing fasciitis: PLAN: #cellulitis and necrotising fascitis of the LLE * s/p debridement by podiatry * wound cultures growing Proteus and beta hemolytic organism * wound vac in place. * PT/OT on board * on oxycodone an IV morphine for pain * On IV vancomycin and Zosyn. * wbc today is 14.1 * #Acute on chronic anemia: * Hb today is 8.7. Will monitor * Transfuse if H BS less than 7. * #VILMA * resolved. Cr is down to 1.1 * #Type 2 diabetes mellitus * Poorly controlled. A1c is 9.5. On Invokana. Insulin sliding scale. Checks AC at bedtime. Metformin on hold on account of VILMA * #CAD s/p CABG: On aspirin and Coreg. Lisinopril held on account of VILMA #Hypertension: On Coreg. resume lisinopril as VILMA has resolved DVT prophylaxis: heparin Charges/Coding Visit Charges Inpatient E&M: 28062 Subs Hosp L2
[2021-04-30] MEDS: Lisinopril 20 MG Tablet PO (08:25)
[2021-04-30] MEDS: Juven (unflavored) Packet 1 PACKET PO (08:25)
[2021-04-30] MEDS: Carvedilol 25 MG Tablet PO (08:26)
[2021-04-30] MEDS: Empagliflozin 25 MG Tablet PO (08:26)
[2021-04-30] MEDS: Aspirin 81 MG TAB.CHEW PO (08:26)
--- NOTE | 2021-04-30 09:41 | CASEMGMT ---
Addendum entered by Cyndie Monae 04/30/21 14:06: Pt called this JUANCHO CISNEROS in to room and states to try [facility]. TC to this agency. They do not accept [employer]. Notified pt and . Addendum entered by Cyndie Monae 04/30/21 13:50: Received tc back from and [facility] as well as [facility] of [facility], none of the agencies service [place]. TC to [facility] and spoke to clinical global marketing manager Cesar. He spoke with who is at the wound center today. Plan for pt is for [facility] to see pt on Thursday at 12:30, then pt to return Thursday at 9am to see . Further changes will be arranged at that time. Cesar asked if pt would be willing to learn as in extenuating circumstances this is done. JUANCHO CISNEROS in to pt room to make aware of all of the above. Pt at bedside. She states they have family friends who are EMT and RELAY CHECKER who are willing to learn. She states she is also willing to learn. She will [facility]. They are aware to call the wound center if there are any issues with the vac prior to Thursday. Original Note: JUANCHO CISNEROS has called [facility], [facility] [place], [facility] and [facility], [facility], [facility], [facility] and [facility] without success of accepting [place] as service area or [employer]. and [facility] are reviewing referral at this time. Pt has had [facility] in the past but does not know the name of the agency. Awaiting acceptance from one of the agencies.
--- NOTE | 2021-04-30 10:44 | CON.PCM.ID_ITS ---
Assessment & Plan Assessment/Plan (1) Necrotizing fasciitis: PLAN: L foot infection, taken to OR 04/[address] Gerber. Wound cx with proteus and strep, pcr with mssa. Will stop vanc. Ok for home with po augmentin 875mg bid for 7 more days. Will follow as needed, thank you. D/w Dr. Rivas. Recommended covid vaccine and stricter glucose control as an outpt. (2) Diabetic foot infection: HPI Consult Data Date of Consult: 04/30/21 HPI Narrative HPI Narrative: GO VANESSA, is a 50 M with uncontrolled DM, presented 04/28 with several weeks of worsening L lateral foot callus which turned into blister then wound, then rapidly progressive starting 04/26 with severe pain /swelling/redness, mild chills. Noticed decreased UOP. Came to ED 04/28, taken to OR urgently that night by Dr. Gerber for nec fasc. On vanc/zosyn, feeling better. Thinks he had covid early in pandemic, has not gotten the vaccine. Full ROS performed and neg except as noted above. [facility] Medical History Anxiety Alex's palsy Myocardial infarct Home Medications ascorbic acid (vitamin C) [Vitamin C] 500 mg PO BID 04/28/21 [History Last Taken 04/28/21] aspirin 81 mg PO DAILY 04/28/21 [History Last Taken 04/28/21] canagliflozin [Invokana] 100 mg PO DAILY 04/28/21 [History Last Taken 04/28/21] carvedilol 25 mg PO BID 04/28/21 [History Last Taken 04/28/21] doxycycline monohydrate 100 mg PO BID 04/28/21 [History Last Taken 04/28/21] furosemide [Lasix] 40 mg PO DAILY 04/28/21 [History Last Taken 04/28/21] lisinopril 20 mg PO DAILY 04/28/21 [History Last Taken 04/28/21] metformin 1,000 mg PO BID 04/28/21 [History Last Taken 04/28/21] Allergy/AdvReac Type Severity Reaction Status Date / Time No Known Allergies Allergy Verified 04/28/21 16:09 Surgical History (Updated 04/28/21 @ 20:[address] Annia Brenner MD) History of ear, nose, and throat (ENT) surgery History of quadruple bypass Social History (Updated 04/28/21 @ 20:[address] Annia Brenner MD) Smoking Status: Never smoker alcohol intake: never Physical Exam Const alert, oriented x3 and no apparent distress General Appearance: cooperative HEENT normocephalic and head/scalp atraumatic Eyes PERRL and EOMs intact bilaterally Neck supple and No nodes Resp normal air movement and clear to auscultation bilaterally Cardio regular rate, regular rhythm and no murmurs GI normal to inspection, nondistended, normoactive bowel sounds Extremity General Extremity: edema Skin Skin Narrative: reviewed photo L foot Neuro CN's II-XII intact bilaterally Lab / Micro Data Result Diagrams: 04/30/21 03:50 04/30/21 03:50 Labs: Laboratory Results - last 24 hr 04/28/21 04/28/21 04/29/21 16:30 23:39 11:09 WBC RBC Hgb Hct MCV MCH MCHC RDW Std Deviation RDW Coeff of Shant Plt Count MPV Immature Gran % (Auto) Neut % (Auto) Lymph % (Auto) [place] % (Auto) Eos % (Auto) Baso % (Auto) Absolute Neuts (auto) Absolute Lymphs (auto) Nucleated RBC % Diff Path Review Reviewed Sodium Potassium Chloride Carbon Dioxide Anion Gap BUN Creatinine Estim Creat Clear Calc Est GFR (MDRD) Af Amer Est GFR (MDRD) Non-Af BUN/Creatinine Ratio Glucose Calcium Vitamin B12 386 Vancomycin Trough POC Glucose 213 H 04/29/21 04/29/21 04/30/21 16:00 21:32 03:50 WBC RBC Hgb Hct MCV MCH MCHC RDW Std Deviation RDW Coeff of Shant Plt Count MPV Immature Gran % (Auto) Neut % (Auto) Lymph % (Auto) [place] % (Auto) Eos % (Auto) Baso % (Auto) Absolute Neuts (auto) Absolute Lymphs (auto) Nucleated RBC % Diff Path Review Sodium Potassium Chloride Carbon Dioxide Anion Gap BUN Creatinine Estim Creat Clear Calc Est GFR (MDRD) Af Amer Est GFR (MDRD) Non-Af BUN/Creatinine Ratio Glucose Calcium Vitamin B12 Vancomycin Trough 16.0 H POC Glucose 209 H 266 H 04/30/21 04/30/21 04/30/21 03:50 03:50 06:19 WBC 14.1 H RBC 3.00 L Hgb 8.7 L Hct 26.8 L MCV 89.3 MCH 29.0 MCHC 32.5 RDW Std Deviation 42.0 RDW Coeff of Shant 12.8 Plt Count 309 MPV 10.3 Immature Gran % (Auto) 2.900 H Neut % (Auto) 69.9 Lymph % (Auto) 12.3 L [place] % (Auto) 11.1 H Eos % (Auto) 3.4 Baso % (Auto) 0.4 Absolute Neuts (auto) 9.9 H Absolute Lymphs (auto) 1.73 Nucleated RBC % 0 Diff Path Review May foll Sodium 134 L Potassium 4.7 Chloride 104 Carbon Dioxide 19.0 L Anion Gap 11 BUN 34 H Creatinine 1.10 Estim Creat Clear Calc 90.80 Est GFR (MDRD) Af Amer 91 Est GFR (MDRD) Non-Af 75 BUN/Creatinine Ratio 30.9 H Glucose 188 H Calcium 8.5 Vitamin B12 Vancomycin Trough POC Glucose 172 H Micro: Microbiology 04/28/21 Unknown Gram Stain - Final Wound Abcess - Aerobic & Anaerobic Swabs Wound Culture - Preliminary Proteus sp. Beta hemolytic organism 04/28/21 19:56 Gram Stain - Final Wound - Left Foot Wound Culture - Preliminary Proteus vulgaris Beta hemolytic organism Radiology Impression Extremity Arterial Study 04/29/21 07:42 Interpretation Summary Ankle brachial indices bilaterally appear to be an accurate and nonobtainable secondary to artificially elevated systolic pressure. This is likely secondary to medial calcification of vessel lewis. Bilateral PT and DP Doppler waveforms are triphasic suggesting a more mild degree of large vessel disease despite the noncompressible vessels. It is of note that bilateral volume pulse recordings appear to be maintained and normal as well Right digital brachial index normal at 0.78 with abnormal left digital brachial index of 0.47 possibly consistent with small vessel disease. Clinical correlation would be appropriate Ordering Physician: Alis Gerber Referring Physician: Karen Giang Performed By: Janice Marítnez RVT and Student
[2021-04-30 10:50] LABS: Bedside Glucose 241 mg/dL (70-110)
[2021-04-30 12:50] LABS: Pathologist Review Reviewed
--- NOTE | 2021-04-30 12:54 | PCM.PROGNOTE ---
Subjective Subjective Patient was seen this morning for follow up on left foot. He relates he is doing well, no complaints. No f/c/n/v, no calf pain. Objective Data Objective Data Vital Signs: Vital Signs Temp Pulse Resp BP Pulse Ox 98.3 F 90 20 H 163/79 H 95 04/30/21 08:20 04/30/21 08:30 04/30/21 08:20 04/30/21 08:20 04/30/21 09:27 Oxygen Delivery Method Room Air Weight: 120.7 kg Body Mass Index (BMI) 35.1 Intake & Output: Intake and Output for Last 24 Hours 04/28/21 04/29/21 04/30/21 23:59 23:59 23:59 Intake Total 1585 / 1585 3742.42 / 4342.42 2316.67 / 2316.67 Output Total 3750 / 3750 1825 / 1825 Balance 1585 / 1585 -7.58 / 592.42 491.67 / 491.67 Lab / Micro Data Result Diagrams: 04/30/21 03:50 04/30/21 03:50 Labs: Laboratory Results - last 24 hr 04/28/21 04/28/21 04/29/21 16:30 23:39 16:00 WBC RBC Hgb Hct MCV MCH MCHC RDW Std Deviation RDW Coeff of Shant Plt Count MPV Immature Gran % (Auto) Neut % (Auto) Lymph % (Auto) [place] % (Auto) Eos % (Auto) Baso % (Auto) Absolute Neuts (auto) Absolute Lymphs (auto) Nucleated RBC % Diff Path Review Reviewed Sodium Potassium Chloride Carbon Dioxide Anion Gap BUN Creatinine Estim Creat Clear Calc Est GFR (MDRD) Af Amer Est GFR (MDRD) Non-Af BUN/Creatinine Ratio Glucose Calcium Vitamin B12 386 Vancomycin Trough POC Glucose 209 H 04/29/21 04/30/21 04/30/21 21:32 03:50 03:50 WBC 14.1 H RBC 3.00 L Hgb 8.7 L Hct 26.8 L MCV 89.3 MCH 29.0 MCHC 32.5 RDW Std Deviation 42.0 RDW Coeff of Shant 12.8 Plt Count 309 MPV 10.3 Immature Gran % (Auto) 2.900 H Neut % (Auto) 69.9 Lymph % (Auto) 12.3 L [place] % (Auto) 11.1 H Eos % (Auto) 3.4 Baso % (Auto) 0.4 Absolute Neuts (auto) 9.9 H Absolute Lymphs (auto) 1.73 Nucleated RBC % [address] Review Reviewed Sodium Potassium Chloride Carbon Dioxide Anion Gap BUN Creatinine Estim Creat Clear Calc Est GFR (MDRD) Af Amer Est GFR (MDRD) Non-Af BUN/Creatinine Ratio Glucose Calcium Vitamin B12 Vancomycin Trough 16.0 H POC Glucose 266 H 04/30/21 04/30/21 04/30/21 03:50 06:19 10:39 WBC RBC Hgb Hct MCV MCH MCHC RDW Std Deviation RDW Coeff of Shant Plt Count MPV Immature Gran % (Auto) Neut % (Auto) Lymph % (Auto) [place] % (Auto) Eos % (Auto) Baso % (Auto) Absolute Neuts (auto) Absolute Lymphs (auto) Nucleated RBC % Diff Path Review Sodium 134 L Potassium 4.7 Chloride 104 Carbon Dioxide 19.0 L Anion Gap 11 BUN 34 H Creatinine 1.10 Estim Creat Clear Calc 90.80 Est GFR (MDRD) Af Amer 91 Est GFR (MDRD) Non-Af 75 BUN/Creatinine Ratio 30.9 H Glucose 188 H Calcium 8.5 Vitamin B12 Vancomycin Trough POC Glucose 172 H 241 H Micro: Microbiology 04/28/21 Unknown Wound Abcess - Aerobic & Anaerobic Swabs Gram Stain - Final 04/28/21 Unknown Wound Abcess - Aerobic & Anaerobic Swabs Wound Culture - Preliminary Proteus sp. Beta hemolytic organism 04/28/21 19:56 Wound - Left Foot Gram Stain - Final 04/28/21 19:56 Wound - Left Foot Wound Culture - Preliminary Proteus vulgaris Beta hemolytic organism 04/28/21 20:52 Mucosa - Nose SARS-CoV-2 Antigen (Rapid) - Final Physical Exam Const alert and no apparent distress General Appearance: cooperative and comfortable Resp normal respiratory effort Effort and Inspection: able to speak in complete sentences Extremity normal capillary refill and no calf tenderness General Extremity: edema left lower extremity and other findings Other Details: Capillary refill time less than 3 seconds noted to digits ; Negative for clubbing or cyanosis Skin General Skin Exam: atrophy and dry skin; Negative for ecchymosis, eschar, pallor or dermatitis Rashes: no rashes Wounds: wounds noted Wound Narrative: Wound vac intact to the left foot and working well, erythema resolving, no streaking, edema resolving left foot/ankle, calf with no pain with calf squeeze left, and also no evidence of dvt right LE. Neuro Sensory Exam: extremities light-touch: decreased Motor Exam: strength 5/5 throughout Psych Appearance: appropriate Attitude: calm Assessment & Plan Assessment/Plan (1) Necrotizing fasciitis: (2) Non-pressure chronic ulcer of other part of left foot with necrosis of muscle: (3) Cellulitis of left foot: (4) Diabetic foot infection: (5) Coronary artery disease: (6) HTN (hypertension): (7) Diabetes mellitus, type 2: QUALIFIERS: Diabetes mellitus long term care pharmacist insulin use: without long term care pharmacist use Diabetes mellitus complication status: with neurologic complications Diabetes mellitus complication detail: with polyneuropathy Qualified Code(s): E11.42 - Type 2 diabetes mellitus with diabetic polyneuropathy PLAN: Patient seen and examined. Patient noted to have overall improvement. WBC trending down. Continue with wound VAC therapy. Reviewed LEAS, and noted peripheral vascular disease present- consult placed to vascular surgery - Dr. Humphrey. Reviewed cultures - ID on consult. Discussed importance of smoking cessation, blood sugar control, weight management, offloading, proper nutrition, and hygiene to optimize healing potential. Patient noted to be obese and have elevated hemoglobin A1c both of which are significant for healing impairment. Discussed taking time off of work to best allow healing. Patient to be nonweightbearing to left lower extremity. Can do some transfers to heal if necessary. Noted surgical shoe is ordered. Continue to elevate. Please contact if any questions or concerns Patient to follow up with Dr Gerber at wound center after discharge.
[2021-04-30 12:58] LABS: Pathologist Review Reviewed
--- NOTE | 2021-04-30 14:38 | CASEMGMT ---
Lexit to regarding pt po antibiotic. Received message back that he has called it in to [facility]. Pt and nurse Hai aware.
--- NOTE | 2021-04-30 15:23 | NURSING ---
Pt switched over to the home VAC. reviewed alarms, how to fix leaks, etc. with patient and . Both aware to remove the wound VAC if they are not able to resolve the leak or the machine is not functioning. supplies given to for Aquacel AG dressing changes in case the VAC malfunctions. felt the Aquacel AG dressings may be safer than a NS wet to dry so the periwound does not get macerated. Pt was unable to get home health care so the plan is to get twice a week [facility]. all questions answered. patient and very appreciative of care. first appt at the wound center is 05/03/21.
--- NOTE | 2021-04-30 15:35 | PCM.DC.SUM ---
Providers Date of Admission: 04/28/21 Primary Care Physician: TRA Pablo Consultations 04/28/21 22:33 Consult: Onc/Wound/neonatologist Routine Comment: Consult: Podiatry Routine Consulting Provider: Alis Gerber Reason for Consult: Diabetic left foot infection EMERGENT Consult: No MD Notified: Yes Date Notified: 04/28/21 Time Notified: 19:50 Method of Notification: Provider Initiated Comments:: Notified by ER physician 04/30/21 12:58 Consult: Vascular Surgery Routine Consulting Provider: Ray Humphrey Reason for Consult: PAD lower extremity, s/p debridement of gas infection EMERGENT Consult: No MD Notified: Yes Date Notified: 04/30/21 Time Notified: 12:58 Method of Notification: Text 04/30/21 14:47 Consult: Infectious Disease Routine Consulting Provider: Meño Arrieta Reason for Consult: necrotising fasciitis EMERGENT Consult: No MD Notified: Yes Date Notified: 04/30/21 Time Notified: 14:48 Method of Notification: Verbal Reason For Visit: DIABETIC LEFT FOOT INFECTION/CELLULITIS/INFECTED Diagnosis Discharge Diagnosis (1) Necrotizing fasciitis: Status: Acute Code(s): M72.6 - Necrotizing fasciitis (2) Non-pressure chronic ulcer of other part of left foot with necrosis of muscle: Status: Chronic Code(s): L97.523 - Non-pressure chronic ulcer of other part of left foot with necrosis of muscle (3) Cellulitis of left foot: Status: Acute Code(s): L03.116 - Cellulitis of left lower limb (4) Diabetic foot infection: Status: Acute Code(s): E11.628 - Type 2 diabetes mellitus with other skin complications; L08.9 - Local infection of the skin and subcutaneous tissue, unspecified (5) Coronary artery disease: Status: Chronic Code(s): I25.10 - Atherosclerotic heart disease of [place] coronary artery without angina pectoris (6) HTN (hypertension): Status: Chronic Code(s): I10 - Essential (primary) hypertension (7) Diabetes mellitus, type 2: Status: Acute Code(s): E11.9 - Type 2 diabetes mellitus without complications Qualifiers: Diabetes mellitus mcfp insulin use: without intermediate project manager use Diabetes mellitus complication status: with neurologic complications Diabetes mellitus complication detail: with polyneuropathy Qualified Code(s): E11.42 - Type 2 diabetes mellitus with diabetic polyneuropathy Medications at Discharge Home Medications Invokana 100 mg PO DAILY 04/28/21 ascorbic acid (vitamin C) [Vitamin C] 500 mg PO BID 04/28/21 aspirin 81 mg PO DAILY 04/28/21 carvedilol 25 mg PO BID 04/28/21 furosemide [Lasix] 40 mg PO DAILY 04/28/21 lisinopril 20 mg PO DAILY 04/28/21 metformin 1,000 mg PO BID 04/28/21 amoxicillin-pot clavulanate [Augmentin] 1 tab PO BID #14 tab 04/30/21 Hospital Course Operations - (Left foot debridement) Procedures None Summary of Care Provided Minutes Spent on Discharge: 50 Hospital Course: Patient is a 50-year-old male with a past medical history as outlined which includes diabetes was admitted through the ED on 04/28/2021 with a complaint of left foot wound and worsening pain. Pain was mainly on the lateral aspect of the left foot and gradually got bigger with associated black discoloration. He denied any fever or chills. He had been seen at an outside facility about a week prior to admission and had debridement done and was started on p.o. doxycycline. Symptoms however did not improve so he came into the ED where x-rays of the left foot done showed extensive soft tissue gas in the lateral foot suspicious for necrotizing fasciitis. He was admitted to be managed for necrotizing fasciitis and diabetic foot infection as well as VILMA. Podiatry was consulted and patient went for excisional debridement on 04/29/2021. He tolerated procedure well. Postop course was not complicated and he remained stable. ID was consulted. Wound cultures grew Proteus species and beta-hemolytic organism. Patient had wound VAC applied. He was discharged home on 04/30/2021 with wound VAC in place and per ID, was discharged home on p.o. Augmentin for 1 week course. He is to follow-up with his primary care doctor and follow-up with podiatry in the office on 05/01/2021 and also to follow-up with wound care as scheduled. Patient seen and examined prior to discharge he had no complaints and pain was well controlled. Review of stents otherwise negative. Labs and vitals reviewed. Home medication reviewed and reconciled. Physical Exam Const alert, oriented x3, no apparent distress and no limitations General Appearance: cooperative, comfortable and well kempt Exam Limitations: no limitations Nutritional Appearance: overweight HEENT normocephalic, head/scalp atraumatic, external ears normal, external nose normal and moist oral mucous membranes Eyes PERRL, EOMs intact bilaterally, conjunctivae normal and no scleral icterus General Eye: normal appearance of both eyes Neck no lymphadenopathy, supple, no meningeal signs, no JVD and no carotid bruits Lymph Lymphatic: no lymphadenopathy noted Resp normal respiratory effort, normal air movement and clear to auscultation bilaterally Auscultation: Negative for crackles, rales, rhonchi or wheezes Cardio regular rate, regular rhythm, S1 normal heart sound, S2 normal heart sound, no murmurs and no JVD GI normal to inspection, nondistended, normoactive bowel sounds, soft to palpation, non-tender and non-distended; Negative for hepatosplenomegaly GI Narrative: Obese. Extremity normal to inspection, full ROM and no clubbing, cyanosis or edema Extremity Narrative: Trace edema, no clubbing or cyanosis. Skin no petechiae Skin Narrative: left foot wrapped in bandage, with wound drain in place Neuro oriented x3, CN's II-XII intact bilaterally and moves all extremities Sensorium / Orientation: awake, alert and oriented to person Speech: speech normal Motor Exam: strength 5/5 throughout Psych mental status grossly normal and affect normal Appearance: appropriate Weight / BMI Weight Weight: 266 lb 1.567 oz Body Mass Index (BMI) 35.1 ABG / Lab / Microbiology Data Result Diagrams: 04/30/21 03:50 04/30/21 03:50 Laboratory: Laboratory Results - last 24 hr 04/29/21 04/29/21 04/29/21 06:45 16:00 21:32 WBC RBC Hgb Hct MCV MCH MCHC RDW Std Deviation RDW Coeff of Shant Plt Count MPV Immature Gran % (Auto) Neut % (Auto) Lymph % (Auto) [place] % (Auto) Eos % (Auto) Baso % (Auto) Absolute Neuts (auto) Absolute Lymphs (auto) Nucleated RBC % Diff Path Review Reviewed Sodium Potassium Chloride Carbon Dioxide Anion Gap BUN Creatinine Estim Creat Clear Calc Est GFR (MDRD) Af Amer Est GFR (MDRD) Non-Af BUN/Creatinine Ratio Glucose Calcium Vancomycin Trough POC Glucose 209 H 266 H 04/30/21 04/30/21 04/30/21 03:50 03:50 03:50 WBC 14.1 H RBC 3.00 L Hgb 8.7 L Hct 26.8 L MCV 89.3 MCH 29.0 MCHC 32.5 RDW Std Deviation 42.0 RDW Coeff of Shant 12.8 Plt Count 309 MPV 10.3 Immature Gran % (Auto) 2.900 H Neut % (Auto) 69.9 Lymph % (Auto) 12.3 L [place] % (Auto) 11.1 H Eos % (Auto) 3.4 Baso % (Auto) 0.4 Absolute Neuts (auto) 9.9 H Absolute Lymphs (auto) 1.73 Nucleated RBC % 0 [address] Path Review Reviewed Sodium 134 L Potassium 4.7 Chloride 104 Carbon Dioxide 19.0 L Anion Gap 11 BUN 34 H Creatinine 1.10 Estim Creat Clear Calc 90.80 Est GFR (MDRD) Af Amer 91 Est GFR (MDRD) Non-Af 75 BUN/Creatinine Ratio 30.9 H Glucose 188 H Calcium 8.5 Vancomycin Trough 16.0 H POC Glucose 04/30/21 04/30/21 06:19 10:39 WBC RBC Hgb Hct MCV MCH MCHC RDW Std Deviation RDW Coeff of Shant Plt Count MPV Immature Gran % (Auto) Neut % (Auto) Lymph % (Auto) [place] % (Auto) Eos % (Auto) Baso % (Auto) Absolute Neuts (auto) Absolute Lymphs (auto) Nucleated RBC % Diff Path Review Sodium Potassium Chloride Carbon Dioxide Anion Gap BUN Creatinine Estim Creat Clear Calc Est GFR (MDRD) Af Amer Est GFR (MDRD) Non-Af BUN/Creatinine Ratio Glucose Calcium Vancomycin Trough POC Glucose 172 H 241 H Microbiology: Microbiology 04/28/21 Unknown Gram Stain - Final Wound Abcess - Aerobic & Anaerobic Swabs Wound Culture - Preliminary Proteus sp. Beta hemolytic organism 04/28/21 19:56 Gram Stain - Final Wound - Left Foot Wound Culture - Preliminary Proteus vulgaris Beta hemolytic organism Microbiology 04/28/21 Unknown Wound Abcess - Aerobic & Anaerobic Swabs Gram Stain - Final 04/28/21 Unknown Wound Abcess - Aerobic & Anaerobic Swabs Wound Culture - Preliminary Proteus sp. Beta hemolytic organism 04/28/21 19:56 Wound - Left Foot Gram Stain - Final 04/28/21 19:56 Wound - Left Foot Wound Culture - Preliminary Proteus vulgaris Beta hemolytic organism 04/28/21 20:52 Mucosa - Nose SARS-CoV-2 Antigen (Rapid) - Final D/C Instructions Discharge Diet: 1800 Calorie Control Diet Weight Bearing Status: Weight bearing as tolerated Call your doctor if your incision/area has: Continuous Slow Oozing, Sudden Increased Bleeding, Increased Pain/ Swelling, Increased Redness, Foul Smelling Discharge and Swelling at the incision site Call your doctor if you observe: Fever of 101 or Higher, Shortness of breath and Uncontrolled pain Meaningful Use Info Meaningful Use Diagnoses (Choose all that apply): None applicable Discharge Plan Admission Admit Date/Time: 04/28/21 19:49 Primary Reason for Your Visit: necrotising fasciitis of left foot Attending Provider: Pamela Rivas Primary Care Provider: Karen Giang Consulting Providers: Alis Gerber ; Ray Humphrey ; Meño Arrieta Instructions Patient Instructions: Stroke and Heart Disease, Diabetes and High Blood Pressure Additional Instructions / Restrictions: Follow-up with Dr. Key in his office tomorrow 05/01/2021. Follow up with wound care on outpatient basis Discharge Orders/Prescriptions Prescriptions: New amoxicillin-pot clavulanate [Augmentin] 875-125 mg tablet 1 tab PO BID Qty: 14 RF: 0 Continued furosemide [Lasix] 40 mg Tablet 40 mg PO DAILY RF: 0 carvedilol 25 mg Tablet 25 mg PO BID RF: 0 lisinopril 20 mg Tablet 20 mg PO DAILY RF: 0 metformin 1,000 mg Tablet 1,000 mg PO BID RF: 0 aspirin 81 mg Tablet 81 mg PO DAILY RF: 0 ascorbic acid (vitamin C) [Vitamin C] 500 mg Tablet Extended Release 500 mg PO BID RF: 0 Invokana 100 mg Tablet 100 mg PO DAILY RF: 0 Discontinued doxycycline monohydrate 100 mg Capsule 100 mg PO BID RF: 0 Referrals / Follow Up: Wound Health [Outside] (With Dr Gerber. Please call [phone] to schedule. Within 1 week of DC) Hugo Key DPM [STAFF PHYSICIAN] - In 1 Day (call office for appointment) Karen Giang PA [Primary Care Provider] - Disposition Disposition (needs filled in before D/C Order can be placed): Home, Self Care Charges/Coding Visit Charges Inpatient E&M: 95492 Disch Hosp
--- NOTE | 2021-04-30 15:53 | NURSING ---
Called and talked with Dr Key's office. Pt has appt on 05/01/21 at 3pm for VAC change and then will follow at the [facility] twice weekly. pt and given appt time and address to Yesi's office.
[2021-04-30 20:13] LABS: Folate, RBC (Hct) Test 25.9 % (37.5-51.0)
[2021-05-01 13:34] LABS: Folates, RBC Test 1201 ng/mL (>498)
== END 2021-04-30 15:59 | disposition home or self-care (01) | DRG 364 ==
LOC: ED 20:53 → SDC 20:53 → MS3 20:53
PROVIDERS: Podiatrist Foot & Ankle Surgery; Admitting Provider Hospitalist; Emergency Provider Emergency Medicine; PCP Physician Assistant Medical; Visit Provider Student in an Organized Health Care Education/Training Program
PROC: 0KBW0ZZ Excision of Left Foot Muscle, Open Approach (ICD-10-PCS; principal; 2021-04-28 21:30)
DX: E11.628 Type 2 diabetes mellitus with other skin complications (principal); M72.6 Necrotizing fasciitis; E11.621 Type 2 diabetes mellitus with foot ulcer; E11.42 Type 2 diabetes mellitus with diabetic polyneuropathy; L03.116 Cellulitis of left lower limb; L97.523 Non-pressure chronic ulcer of other part of left foot with necrosis of muscle; L02.612 Cutaneous abscess of left foot; E11.52 Type 2 diabetes mellitus with diabetic peripheral angiopathy with gangrene; I25.10 Atherosclerotic heart disease of native coronary artery without angina pectoris; D64.9 Anemia, unspecified; N17.9 Acute kidney failure, unspecified; A48.0 Gas gangrene; E11.51 Type 2 diabetes mellitus with diabetic peripheral angiopathy without gangrene; B96.4 Proteus (mirabilis) (morganii) as the cause of diseases classified elsewhere; B95.5 Unspecified streptococcus as the cause of diseases classified elsewhere; B95.61 Methicillin susceptible Staphylococcus aureus infection as the cause of diseases classified elsewhere; I10 Essential (primary) hypertension; Z79.899 Other long term (current) drug therapy; Z79.84 Long term (current) use of oral hypoglycemic drugs; Z79.82 Long term (current) use of aspirin; Z95.1 Presence of aortocoronary bypass graft; I25.2 Old myocardial infarction
CPT/HCPCS: 36415; 73630; 80048; 80202; 82607; 82728; 82747; 82962; 83036; 83540; 83550; 83605; 85014; 85025; 85610; 85652; 86140; 87040; 87070; 87075; 87077; 87102; 87186; 87205; 87206; 87426; 87640; 93005; 93923; 97162; 97166; 97802; 99251; 99283; J7030; J7040; J7050; J7120; A4216; G0463

== ENCOUNTER 2021-05-28 10:00 | Outpatient (RCR) | payer BC, MEDICAID, SELFPAY ==
[2021-04-28 23:02] VITALS: BMI 35.1
[2021-05-03 12:00] VITALS: BP 155/85; PULSE 76; RESP 18; TEMP 36.4; BMI 35.9
[2021-05-07 09:53] VITALS: BP 112/61; PULSE 82; RESP 16; TEMP 36.6; BMI 35.6
--- NOTE | 2021-05-07 12:28 | HP.PCM_ITS ---
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 Patient has significant medical history including diabetes, hypertension, coronary artery disease, anemia, aortic martinez artery bypass grafting. 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 Patient underwent surgical debridement of the wound with Dr. Gerber on 04/28/2021. There is noted to be a large deficit due to the severity of his infection. Patient was started on wound VAC therapy while in the hospital and was discharged with this. Patient was also discharged with infectious disease recommendations including Ladi etienne. It was noted that patient is not able to find a home health care company that would take him. Is discussed that his be trained between personnel at the hospital my office and wound care center to change the wound VAC and to contact us if there is any questions or concerns. Patient reports to the wound care center for continued care. [facility] Medical History Anxiety Alex's palsy Myocardial infarct Home Medications Invokana 100 mg PO DAILY 04/28/21 [History Last Taken 04/28/21] ascorbic acid (vitamin C) [Vitamin C] 500 mg PO BID 04/28/21 [History Last Taken 04/28/21] aspirin 81 mg PO DAILY 04/28/21 [History Last Taken 04/28/21] carvedilol 25 mg PO BID 04/28/21 [History Last Taken 04/28/21] furosemide [Lasix] 40 mg PO DAILY 04/28/21 [History Last Taken 04/28/21] lisinopril 20 mg PO DAILY 04/28/21 [History Last Taken 04/28/21] metformin 1,000 mg PO BID 04/28/21 [History Last Taken 04/28/21] amoxicillin-pot clavulanate [Augmentin] 1 tab PO BID #14 tab 04/30/21 [Rx Last Taken Unknown] oxycodone-acetaminophen 1 tab PO Q6H PRN 5 Days #20 tab 04/30/21 [Rx Last Taken Unknown] Allergy/AdvReac Type Severity Reaction Status Date / Time No Known Allergies Allergy Verified 04/28/21 16:09 Surgical History (Updated 04/28/21 @ 20:[address] Annia Brenner MD) History of ear, nose, and throat (ENT) surgery History of quadruple bypass Social History (Updated 04/28/21 @ 20:[address] Annia Brenner MD) Smoking Status: Never smoker alcohol intake: never ROS Constitutional Constitutional: Denies chills or fever(s) Cardiovascular Cardiovascular: Denies chest pain Respiratory/Chest Respiratory/Chest: Denies cough Gastrointestinal Gastrointestinal: Denies nausea or vomiting Musculoskeletal Musculoskeletal: Denies muscle cramps or muscle weakness Integumentary Integumentary: Reports wounds Neurologic Neurologic: Reports numbness and tingling Vital Signs Vital Signs Vital Signs: 05/07/21 09:53 Temperature 97.8 F Temperature Source Temporal Pulse Rate 82 Respiratory Rate 16 Blood Pressure 112/61 Blood Pressure Mean 78 Blood Pressure Source Monitor Blood Pressure Position Sitting Blood Pressure Location Left Arm Oxygen Delivery Method Room Air Weight Weight: 122.47 kg Body Mass Index (BMI) 35.6 Physical Exam Const alert and no apparent distress General Appearance: cooperative and comfortable HEENT Head and Scalp: atraumatic Lymph Lymphatic: no lymphedema noted Resp normal respiratory effort Effort and Inspection: able to speak in complete sentences Extremity normal capillary refill and no calf tenderness General Extremity: other findings Other Details: Capillary refill time less than 3 seconds noted to digits ; Negative for clubbing or cyanosis Peripheral Pulses: Yes posterior tibial pulses present bilateral diminished and dorsalis pedis pulses present bilateral diminished Skin General Skin Exam: Negative for ecchymosis, erythema, eschar, pallor or dermatitis Rashes: no rashes Wounds: wounds noted Wound Narrative: ulcers noted to left lateral foot down to the level of muscle No malodor, purulence, probing to bone, streaking, fluctuation, crepitus, or other signs of infection. Skin is atrophic and hairless. More granulation tissue noted. Less erythema noted retracting further away from skin scribe marked. Skin is began to flake off from edema resolving. Edema noted to the left lower extremity this is improved since last visit Neuro Gait (Neuro): assistive device used crutches Sensory Exam: extremities light-touch: decreased Motor Exam: strength 5/5 throughout Psych Appearance: appropriate Attitude: calm Debridement Note Debridement Note Post-Debridement Measurements and Additional Note: Post-Debridement Measure ments/Treatment WC - Nurse 1 - General Ulcer Assessment Start: 05/03/21 11:56 Freq: Status: Active Protocol: [email or web address] Activity Type Activity Date Activity User E-Sign Co-Sign Detail Recorded Client Recorded Date Recorded By Document 05/03/21 12:00 PL [id number] 05/03/21 13:11 PL Document 05/07/21 09:53 [facility] [id number] 05/07/21 10:04 BM 05/03/21 05/07/21 12:00 09:53 WC - Today's Visit Information Type of service Nurse-only Follow-up Visit Visit (Physician/SAMPLER FIRST ) Arrival Mode Crutches Ambulatory, Walker Transfer Assistance None Accompanied by Patient Identification Verified (Name & Yes Yes ) Patient Requires Transmission-Based No No Precautions Safety Precautions NA Height and Weight Height 6 ft 1 in 6 ft 1 in Weight 123.377 kg 122.47 kg Weight in Pounds 272.0 lbs 270.0 lbs Weight Measurement Method Estimated by Stated by Patient Patient Body Mass Index (BMI) 35.9 35.6 BMI Classification Obese Obese BSA - Hyacinth 2.45 2.44 Vital Signs Temperature (97.8 F-99.1 F) 97.6 F L 97.8 F Temperature Source Temporal Temporal Pulse Rate (60-100) 76 82 Pulse Location Monitor Respiratory Rate (12-18) 18 16 Respiratory rate source Observation Oxygen Delivery Method Room Air Blood Pressure (90/60-120/80) 155/85 H 112/61 Blood Pressure Mean 108 78 Source Monitor Position Sitting Blood Pressure Location Left Arm History Since Last Visit- (Skip if this is Patient's initial visit) Have you changed medications since your No last visit? Any new allergies or adverse reactions No Had a fall/change in ADL's that may No increase risk of falls Signs or symptoms of abuse and/or No neglect since last visit Have you been in the hospital since your No last visit? Has dressing in place as prescribed Yes Has compression in place as prescribed Yes Has offloadiing in place as prescribed Yes Experienced any changes in pain level or No management Left Footwear Surgical Shoe with pressure relief insole Right Footwear Regular Shoe - Nurse 1 - General Ulcer Measurement Start: 05/03/21 11:56 Freq: Status: Active Protocol: Activity Type Activity Date Activity User E-Sign Co-Sign Detail Recorded Client Recorded Date Recorded By Document 05/03/21 12:00 PL [id number] 05/03/21 13:11 PL Document 05/07/21 09:53 [facility] [id number] 05/07/21 10:04 [facility] 05/03/21 05/07/21 12:00 09:53 Wound Center Nurse 1 #1 Left Lat Foot Post Op -Combined with other wound No No -Current Size (cm) - Length 6.0 6.6 -Current Size (cm) - Width 3.5 2.9 -Current Size (cm) - Depth 1.5 0.5 -Total Square Cm 21.00 19.14 -Date of Last Picture (Recall this 05/07/21 field) -Photo Taken No Yes -Epithelialization None Present -Tunneling No No -Undermining/Tunneling No Yes -Undermining/Tunneling Starts (O'clock 1 ) -Undermining/Tunneling Ends (O'clock) 4 -Maximum Distance (cm) 1.8 -Circular Undermining No No -Classification - Thickness Full Thickness with Exposed Support Structure -Exudate Amt Large Large -Exudate Type Serosanguineous Serosanguineous -Wound Margin Flat & Intact Distinct, Outline Attached -Granulation Amt Medium (34-66%) Medium (34-66%) -Granulation Quality Stowell Red -Slough/Fibrin Yes Yes -Necrosis Amt Medium (34-66%) Medium (34-66%) -Necrotic Tissue Type Eschar Adherent Slough -Texture (Anna-wound Skin Appearance) No Abnormality Assessed, Scarring -Moisture (Anna-wound Skin Appearance) Dry/Scaly Assessed, Maceration -Color (Anna-wound Skin Appearance) No Abnormality Assessed -Temperature (Anna-wound Skin No Abnormality Appearance) (Pt Warm) -Tenderness on Palpation (Anna-wound No Skin Appearance) -Ulcer Cleansing Soap and Water soapy water -Foul Odor after Cleansing No No -Anesthetic Used 4% Lidocaine Solution WC - Nurse 2 - General Ulcer CM Notes Start: 05/03/21 11:56 Freq: Status: Active Protocol: Activity Type Activity Date Activity User E-Sign Co-Sign Detail Recorded Client Recorded Date Recorded By Document 05/07/21 10:28 GABBI [id number] 05/07/21 10:30 GABBI 05/07/21 10:28 Wound Center Nurse 2 -Time 10:28 -Correct Patient Yes -Correct Side, Site, Position Yes -Correct Procedure Yes -Procedure Performed Yes -Type of Procedure Debridement -Clinical Debridement Muscle / Fascia -Tissue Removed Muscle -Post Debridement (cm) - Length 7 -Post Debridement (cm) - Width 3.3 -Post Debridement (cm) - Depth 1.2 -Total Square (Post) (cm) 23.1 -Area of Debridement (cm) - Length 7 -Area of Debridement (cm) - Width 3.3 -Total Square (Area) (cm) 23.1 -Tunneling No -Undermining/Tunneling No -Circular Undermining No -Wound/Ulcer Outcome Not Healed -Ulcer Cleansing Rinsed/ Irrigated with Saline -Foul Odor after Cleansing No -Bioengineered Tissue No -Bleeding Controlled with Pressure -Offloading Yes -Type of Offloading Surgical Shoe -Treatment Response Procedure Tolerated Well -Debridement - Muscle / Fascia, 1st Yes 20sq cm -Debridement, Muscle/Fascia, ea addt'l 1 20sq cm or part thereof Pain Scale: 0-10 Numeric Is Patient Pain Free? Yes WC - Nurse 3 - General Ulcer D/C NN Start: 05/03/21 11:56 Freq: Status: Active Protocol: Activity Type Activity Date Activity User E-Sign Co-Sign Detail Recorded Client Recorded Date Recorded By Document 05/03/21 13:11 PL [id number] 05/03/21 13:14 PL Document 05/07/21 10:30 [id number] 05/07/21 10:31 Document 05/07/21 10:59 ML [id number] 05/07/21 11:01 ML 05/03/21 05/07/21 05/07/21 13:11 10:30 10:59 Wound Care Nurse 3 #1 Left Lat Foot Post Op -Ulcer Cleansing Rinsed/ Rinsed/ Rinsed/ Irrigated with Irrigated with Irrigated with Saline Saline Saline -Foul Odor after Cleansing No No Yes -Negative Pressure Wound Therapy Continue Continue -Setting (mmHg) 150 150 -Negative Pressure is Continuous Continuous Continuous -NPWT Application Charge ($) NPWT </= 50 sq NPWT </= 50 sq NPWT </= 50 sq cm cm cm Left -Compression Wrap Gavin Wrap Gavin Wrap -Other gavin bilateral Pain Scale: 0-10 Numeric Is Patient Pain Free? Yes Yes Teaching: Wound Center Wound Vac -Person Taught Patient, Significant Other -Teaching Method Discussion, Demonstration -Response to teaching Verbalize understanding *Welcome to the Wound Center -Person Taught Patient, Significant Other -Teaching Method Discussion -Response to teaching Verbalize understanding WC - Visit Discharge Discharge Condition Stable Stable Ambulatory Status Wheelchair Crutches Transportation Private Auto Private Auto Accompanied by Medication Reconcilliation completed & Yes No provided to patient/care provider Clinical Summary of Care Provided Yes Yes Wound debrided: Lateral foot Laterality: Left Wound Grade/Stage: Senior 2 Type of Debridement: Excisional debridement Anesthesia Used: 4% Lidocaine Solution Depth: to muscle Percentage of wound debrided: 100 Instrument Used: 3mm curette Tissue Removed: includes fibrous, devitalized, biofilm, callus and slough tissue Severity: Necrosis of Muscle Amount of bleeding with debridement: Mild Bleeding Controlled with: Pressure Patient tolerated procedure: Patient tolerated procedure well Assessment/Plan Assessment/Plan (1) Non-pressure chronic ulcer of other part of left foot with necrosis of muscle: CODE(S): L97.523 - Non-pressure chronic ulcer of other part of left foot with necrosis of muscle (2) Diabetes mellitus, type 2: CODE(S): E11.9 - Type 2 diabetes mellitus without complications QUALIFIERS: Diabetes mellitus terminal system operator insulin use: without terminal system operator use Diabetes mellitus complication status: with neurologic complications Diabetes mellitus complication detail: with polyneuropathy Qualified Code(s): E11.42 - Type 2 diabetes mellitus with diabetic polyneuropathy (3) Cellulitis of left foot: CODE(S): L03.116 - Cellulitis of left lower limb (4) Left foot pain: CODE(S): M79.672 - Pain in left foot (5) Necrotizing fasciitis: CODE(S): M72.6 - Necrotizing fasciitis PLAN: Patient seen and examined Wound is improved from when he was last seen by myself previous Thursday with more granulation tissue noted. Patient is ambulating with crutches nonweightbearing. Patient reports no systemic signs of illness at this time. Patient is a follow-up from the hospital after debridement from a gas gangrene infection. Wound was operated down to level of subcu but infection did not violate the bone. Patient did not undergo an amputation. There is a large deficits to the lateral aspect of his fifth metatarsal. OR cultures were noted to be positive for Proteus vulgaris, Enterococcus faecalis, Staphylococcus aureus, anaerobic cocci. Patient was discharged from the hospital with antibiotics per infectious disease which was Augmentin which patient states he will finish tomorrow. Patient is also discharged with wound VAC therapy. Patient was not able to obtain home health care coverage due to location of his home and insurance coverage. Discussed having be trained in order to manage the wound VAC. was amendable and has been trained by both myself and wound care center staff. Patient and is to contact if any questions or concerns. Patient is also noted to have vascular studies done on 04/29/2021 demonstrating triphasic waveforms to PT and DP bilaterally with mild degree of large vessel disease despite noncompressible vessels. Right TBI was 0.78 and left TBI was 0.47 possibly consistent with small vessel disease. Patient is noted to have offloaded surgical shoe and crutches for offloading purposes. After verbal consent was obtained ulceration was debrided sharply Discussed importance of smoking cessation, blood sugar control, weight management, offloading, proper nutrition, infection control and hygiene to optimize healing potential. Patient is to continue wound VAC therapy 3 times a week 150 low continuous pressure with good seal. This is to be covered with dry sterile dressing with the suction cord well-padded and not against the skin. All questions answered Patient is to follow-up in 1 week This note was generated with [employer] dictation software. It may contain incorrect words, spelling, and punctuation that were not noted in checking the note before signing.
--- NOTE | 2021-05-14 10:57 | PN.PCM_ITS ---
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 Patient has significant medical history including diabetes, hypertension, coronary artery disease, anemia, aortic martinez artery bypass grafting. 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 Patient underwent surgical debridement of the wound with Dr. Gerber on 04/28/2021. There is noted to be a large deficit due to the severity of his infection. Patient was started on wound VAC therapy while in the hospital and was discharged with this. Patient was also discharged with infectious disease recommendations including Augmentin. It was noted that patient is not able to find a home health care company that would take him. Is discussed that his be trained between personnel at the hospital my office and wound care center to change the wound VAC and to contact us if there is any questions or concerns. Patient reports to the wound care center for continued care. Subjective Subjective Patient seen and examined resting comfortably. Patient denies any new pedal complaints. Patient denies any nausea, fever, chills, chest pain, shortness of breath, cough, streaking, purulence, vomiting. Objective Data Objective Data Vital Signs: Vital Signs Temp Pulse Resp BP 97.8 F 82 16 112/61 05/07/21 09:53 05/07/21 09:53 05/07/21 09:53 05/07/21 09:53 Oxygen Delivery Method Room Air Weight: 122.47 kg Body Mass Index (BMI) 35.6 Physical Exam Const alert and no apparent distress General Appearance: cooperative and comfortable Lymph Lymphatic: no lymphedema noted Resp normal respiratory effort Effort and Inspection: able to speak in complete sentences Extremity normal capillary refill and no calf tenderness General Extremity: other findings Other Details: Capillary refill time less than 3 seconds noted to digits ; Negative for clubbing or cyanosis Skin General Skin Exam: Negative for ecchymosis, erythema, eschar, pallor or dermatitis Rashes: no rashes Wounds: wounds noted Wound Narrative: ulcers noted to left lateral foot down to the level of muscle No malodor, purulence, probing to bone, streaking, fluctuation, crepitus, or other signs of infection. Skin is atrophic and hairless. More granulation ti ssue noted. Less erythema noted retracting further away from skin scribe marked. Skin is began to flake off from edema resolving. Edema noted to the left lower extremity this is improved since last visit Neuro Gait (Neuro): assistive device used crutches Sensory Exam: extremities light-touch: decreased Motor Exam: strength 5/5 throughout Psych Appearance: appropriate Attitude: calm Debridement Note Debridement Note Post-Debridement Measurements and Additional Note: Post-Debridement Measurements/Treatment - Nurse 1 - General Ulcer Assessment Start: 05/03/21 11:56 Freq: Status: Active Protocol: MARILYN Activity Type Activity Date Activity User E-Sign Co-Sign Detail Recorded Client Recorded Date Recorded By Document 05/03/21 12:00 PL [id number] 05/03/21 13:11 PL Document 05/07/21 09:53 BM [id number] 05/07/21 10:04 BM 05/03/21 05/07/21 12:00 09:53 - Today's Visit Information Type of service Nurse-only Follow-up Visit Visit (Physician/EXCELLENCE SPECIALIST ) Arrival Mode Crutches Ambulatory, Walker Transfer Assistance None Accompanied by Patient Identification Verified (Name & Yes Yes ) Patient Requires Transmission-Based No No Precautions Safety Precautions NA Height and Weight Height 6 ft 1 in 6 ft 1 in Weight 123.377 kg 122.47 kg Weight in Pounds 272.0 lbs 270.0 lbs Weight Measurement Method Estimated by Stated by Patient Patient Body Mass Index (BMI) 35.9 35.6 BMI Classification Obese Obese BSA - Hyacinth 2.45 2.44 Vital Signs Temperature (97.8 F-99.1 F) 97.6 F L 97.8 F Temperature Source Temporal Temporal Pulse Rate (60-100) 76 82 Pulse Location Monitor Respiratory Rate (12-18) 18 16 Respiratory rate source Observation Oxygen Delivery Method Room Air Blood Pressure (90/60-120/80) 155/85 H 112/61 Blood Pressure Mean (mm Hg) 108 78 Source Monitor Position Sitting Blood Pressure Location Left Arm History Since Last Visit- (Skip if this is Patient's initial visit) Have you changed medications since your No last visit? Any new allergies or adverse reactions No Had a fall/change in ADL's that may No increase risk of falls Signs or symptoms of abuse and/or No neglect since last visit Have you been in the hospital since your No last visit? Has dressing in place as prescribed Yes Has compression in place as prescribed Yes Has offloadiing in place as prescribed Yes Experienced any changes in pain level or No management Left Footwear Surgical Shoe with pressure relief insole Right Footwear Regular Shoe - Nurse 1 - General Ulcer Measurement Start: 05/03/21 11:56 Freq: Status: Active Protocol: Activity Type Activity Date Activity User E-Sign Co-Sign Detail Recorded Client Recorded Date Recorded By Document 05/03/21 12:00 PL [id number] 05/03/21 13:11 PL Document 05/07/21 09:53 [facility] [id number] 05/07/21 10:04 [facility] 05/03/21 05/07/21 12:00 09:53 Wound Center Nurse 1 #1 Left Lat Foot Post Op -Combined with other wound No No -Current Size (cm) - Length 6.0 6.6 -Current Size (cm) - Width 3.5 2.9 -Current Size (cm) - Depth 1.5 0.5 -Total Square Cm 21.00 19.14 -Date of Last Picture (Recall this 05/07/21 field) -Photo Taken No Yes -Epithelialization None Present -Tunneling No No -Undermining/Tunneling No Yes -Undermining/Tunneling Starts (O'clock 1 ) -Undermining/Tunneling Ends (O'clock) 4 -Maximum Distance (cm) 1.8 -Circular Undermining No No -Classification - Thickness Full Thickness with Exposed Support Structure -Exudate Amt Large Large -Exudate Type Serosanguineous Serosanguineous -Wound Margin Flat & Intact Distinct, Outline Attached -Granulation Amt Medium (34-66%) Medium (34-66%) -Granulation Quality [place] -Slough/Fibrin Yes Yes -Necrosis Amt Medium (34-66%) Medium (34-66%) -Necrotic Tissue Type Eschar Adherent Slough -Texture (Anna-wound Skin Appearance) No Abnormality Assessed, Scarring -Moisture (Anna-wound Skin Appearance) Dry/Scaly Assessed, Maceration -Color (Anna-wound Skin Appearance) No Abnormality Assessed -Temperature (Anna-wound Skin No Abnormality Appearance) (Pt Warm) -Tenderness on Palpation (Anna-wound No Skin Appearance) -Ulcer Cleansing Soap and Water soapy water -Foul Odor after Cleansing No No -Anesthetic Used 4% Lidocaine Solution WC - Nurse 2 - General Ulcer CM Notes Start: 05/03/21 11:56 Freq: Status: Active Protocol: Activity Type Activity Date Activity User E-Sign Co-Sign Detail Recorded Client Recorded Date Recorded By Document 05/07/21 10:28 [id number] 05/07/21 10:30 05/07/21 10:28 Wound Center Nurse 2 -Time 10:28 -Correct Patient Yes -Correct Side, Site, Position Yes -Correct Procedure Yes -Procedure Performed Yes -Type of Procedure Debridement -Clinical Debridement Muscle / Fascia -Tissue Removed Muscle -Post Debridement (cm) - Length 7 -Post Debridement (cm) - Width 3.3 -Post Debridement (cm) - Depth 1.2 -Total Square (Post) (cm) 23.1 -Area of Debridement (cm) - Length 7 -Area of Debridement (cm) - Width 3.3 -Total Square (Area) (cm) 23.1 -Tunneling No -Undermining/Tunneling No -Circular Undermining No -Wound/Ulcer Outcome Not Healed -Ulcer Cleansing Rinsed/ Irrigated with Saline -Foul Odor after Cleansing No -Bioengineered Tissue No -Bleeding Controlled with Pressure -Offloading Yes -Type of Offloading Surgical Shoe -Treatment Response Procedure Tolerated Well -Debridement - Muscle / Fascia, 1st Yes 20sq cm -Debridement, Muscle/Fascia, ea addt'l 1 20sq cm or part thereof Pain Scale: 0-10 Numeric Is Patient Pain Free? Yes WC - Nurse 3 - General Ulcer D/C NN Start: 05/03/21 11:56 Freq: Status: Active Protocol: Activity Type Activity Date Activity User E-Sign Co-Sign Detail Recorded Client Recorded Date Recorded By Document 05/03/21 13:11 PL [id number] 05/03/21 13:14 PL Document 05/07/21 10:30 [id number] 05/07/21 10:31 Document 05/07/21 10:59 ML [id number] 05/07/21 11:01 ML 05/03/21 05/07/21 05/07/21 13:11 10:30 10:59 Wound Care Nurse 3 #1 Left Lat Foot Post Op -Ulcer Cleansing Rinsed/ Rinsed/ Rinsed/ Irrigated with Irrigated with Irrigated with Saline Saline Saline -Foul Odor after Cleansing No No Yes -Negative Pressure Wound Therapy Continue Continue -Setting (mmHg) 150 150 -Negative Pressure is Continuous Continuous Continuous -NPWT Application Charge ($) NPWT </= 50 sq NPWT </= 50 sq NPWT </= 50 sq cm cm cm Left -Compression Wrap Gavin Wrap Gavin Wrap -Other gavin bilateral Pain Scale: 0-10 Numeric Is Patient Pain Free? Yes Yes Teaching: Wound Center Wound Vac -Person Taught Patient, Significant Other -Teaching Method Discussion, Demonstration -Response to teaching Verbalize understanding *Welcome to the Wound Center -Person Taught Patient, Significant Other -Teaching Method Discussion -Response to teaching Verbalize understanding WC - Visit Discharge Discharge Condition Stable Stable Ambulatory Status Wheelchair Crutches Transportation Private Auto Private Auto Accompanied by Medication Reconcilliation completed & Yes No provided to patient/care provider Clinical Summary of Care Provided Yes Yes Wound debrided: Lateral foot Laterality: Left Wound Grade/Stage: Senior 2 Type of Debridement: Excisional debridement Anesthesia Used: 4% Lidocaine Solution Depth: to muscle Percentage of wound debrided: 100 Instrument Used: 3mm curette Tissue Removed: includes fibrous, devitalized, biofilm, callus and slough tissue Severity: Fat Layer Exposed Amount of bleeding with debridement: Mild Bleeding Controlled with: Pressure Patient tolerated procedure: Patient tolerated procedure well Assessment/Plan Assessment/Plan (1) Non-pressure chronic ulcer of other part of left foot with necrosis of muscle: CODE(S): L97.523 - Non-pressure chronic ulcer of other part of left foot with necrosis of muscle (2) Diabetes mellitus, type 2: CODE(S): E11.9 - Type 2 diabetes mellitus without complications QUALIFIERS: Diabetes mellitus custodial insulin use: without parachutist/combatant diver qualified use Diabetes mellitus complication status: with neurologic complications Diabetes mellitus complication detail: with polyneuropathy Qualified Code(s): E11.42 - Type 2 diabetes mellitus with diabetic polyneuropathy (3) Cellulitis of left foot: CODE(S): L03.116 - Cellulitis of left lower limb (4) Left foot pain: CODE(S): M79.672 - Pain in left foot (5) Necrotizing fasciitis: CODE(S): M72.6 - Necrotizing fasciitis PLAN: Patient seen and examined Wound is improved from when he was last seen by myself previous Thursday with more granulation tissue noted. Patient is ambulating with crutches nonweightbearing. Patient reports no systemic signs of illness at this time. Patient is a follow-up from the hospital after debridement from a gas gangrene infection. Wound was operated down to level of subcu but infection did not violate the bone. Patient did not undergo an amputation. There is a large deficits to the lateral aspect of his fifth metatarsal. OR cultures were noted to be positive for Proteus vulgaris, Enterococcus faecalis, Staphylococcus aureus, anaerobic cocci. Patient was discharged from the hospital with antibiotics per infectious disease which was Augmentin which patient states he will finish tomorrow. Patient is also discharged with wound VAC therapy. Patient was not able to obtain home health care coverage due to location of his home and insurance coverage. Discussed having be trained in order to manage the wound VAC. was amendable and has been trained by both myself and wound care center staff. Patient and is to contact if any questions or concerns. Patient is also noted to have vascular studies done on 04/29/2021 demonstrating triphasic waveforms to PT and DP bilaterally with mild degree of large vessel disease despite noncompressible vessels. Right TBI was 0.78 and left TBI was 0.47 possibly consistent with small vessel disease. Patient is noted to have offloaded surgical shoe and crutches for offloading purposes. After verbal consent was obtained ulceration was debrided sharply Discussed importance of smoking cessation, blood sugar control, weight management, offloading, proper nutrition, infection control and hygiene to optimize healing potential. Patient is to continue wound VAC therapy 3 times a week 150 low continuous pressure with good seal. This is to be covered with dry sterile dressing with the suction cord well-padded and not against the skin. All questions answered Patient is to follow-up in 1 week This note was generated with [employer] dictation software. It may contain incorrect words, spelling, and punctuation that were not noted in checking the note before signing.
[2021-05-14 11:00] VITALS: BP 102/57; PULSE 86; RESP 16; TEMP 36.6; BMI 35.6
--- NOTE | 2021-05-14 12:37 | PN.PCM_ITS ---
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 Patient has significant medical history including diabetes, hypertension, coronary artery disease, anemia, aortic martinez artery bypass grafting. 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 Patient underwent surgical debridement of the wound with Dr. Gerber on 04/28/2021. There is noted to be a large deficit due to the severity of his infection. Patient was started on wound VAC therapy while in the hospital and was discharged with this. Patient was also discharged with infectious disease recommendations including Ladi etienne. It was noted that patient is not able to find a home health care company that would take him. Is discussed that his be trained between personnel at the hospital my office and wound care center to change the wound VAC and to contact us if there is any questions or concerns. Patient reports to the wound care center for continued care. Progress of Wound: Improved more granulation tissue noted Subjective Subjective Patient seen and examined resting comfortably. Patient denies any new pedal complaints. Patient denies any nausea, fever, chills, chest pain, shortness of breath, cough, streaking, purulence, vomiting. Objective Data Objective Data Vital Signs: Vital Signs Temp Pulse Resp BP 97.8 F 86 16 102/57 L 05/14/21 11:00 05/14/21 11:00 05/14/21 11:00 05/14/21 11:00 Oxygen Delivery Method Room Air Weight: 122.47 kg Body Mass Index (BMI) 35.6 Physical Exam Const alert and no apparent distress General Appearance: cooperative and comfortable Lymph Lymphatic: no lymphedema noted Resp normal respiratory effort Effort and Inspection: able to speak in complete sentences Extremity normal capillary refill and no calf tenderness General Extremity: other findings Other Details: Capillary refill time less than 3 seconds noted to digits ; Negative for clubbing or cyanosis Skin General Skin Exam: Negative for ecchymosis, erythema, eschar, pallor or dermatitis Rashes: no rashes Wounds: wounds noted Wound Narrative: ulcers noted to left lateral foot down to the level of muscle No malodor, purulence, probing to bone, streaking, fluctuation, crepitus, or other signs of infection. Skin is atrophic and hairless. More granulation tissue noted. Erythema resolved. Skin continues to flake off from edema resolving. Edema noted to the left lower extremity this is improved since last visit Neuro Gait (Neuro): assistive device used crutches Sensory Exam: extremities light-touch: decreased Motor Exam: strength 5/5 throughout Psych Appearance: appropriate Attitude: calm Debridement Note Debridement Note Post-Debridement Measurements and Additional Note: Post-Debridement Measurements/Treatment - Nurse 1 - General Ulcer Assessment Start: 05/03/21 11:56 Freq: Status: Active Protocol: MARILYN Activity Type Activity Date Activity User E-Sign Co-Sign Detail Recorded Client Recorded Date Recorded By Document 05/03/21 12:00 PL [id number] 05/03/21 13:11 PL Document 05/07/21 09:53 BMF [id number] 05/07/21 10:04 BMF Document 05/14/21 11:00 MW Desktop 05/14/21 11:10 MW 05/03/21 05/07/21 05/14/21 12:00 09:53 11:00 - Today's Visit Information Type of service Nurse-only Follow-up Visit Follow-up Visit Visit (Physician/TILE CLASSIFIER (Physician/TILE CLASSIFIER ) ) Arrival Mode Crutches Ambulatory, Ambulatory, Walker Crutches Transfer Assistance None None Accompanied by Patient Identification Verified (Name & Yes Yes Yes ) Patient Requires Transmission-Based No No No Precautions Safety Precautions NA NA Height and Weight Height 6 ft 1 in 6 ft 1 in Weight 123.377 kg 122.47 kg Weight in Pounds 272.0 lbs 270.0 lbs Weight Measurement Method Estimated by Stated by Patient Patient Body Mass Index (BMI) 35.9 35.6 35.6 BMI Classification Obese Obese Obese BSA - Hyacinth 2.45 2.44 Vital Signs Temperature (97.8 F-99.1 F) 97.6 F L 97.8 F 97.8 F Temperature Source Temporal Temporal Temporal Pulse Rate (60-100) 76 82 86 Pulse Location Monitor Monitor Respiratory Rate (12-18) 18 16 16 Respiratory rate source Observation Observation Oxygen Delivery Method Room Air Room Air Blood Pressure (90/60-120/80) 155/85 H 112/61 102/57 L Blood Pressure Mean (mm Hg) 108 78 72 Source Monitor Monitor Position Sitting Sitting Blood Pressure Location Left Arm Left Arm History Since Last Visit- (Skip if this is Patient's initial visit) Have you changed medications since your No No last visit? Any new allergies or adverse reactions No No Had a fall/change in ADL's that may No No increase risk of falls Signs or symptoms of abuse and/or No No neglect since last visit Have you been in the hospital since your No No last visit? Has dressing in place as prescribed Yes Yes Has compression in place as prescribed Yes Yes Has offloadiing in place as prescribed Yes N/A Experienced any changes in pain level or No No management Left Footwear Surgical Shoe Regular Shoe with pressure relief insole Right Footwear Regular Shoe Regular Shoe Pain Scale: 0-10 Numeric Is Patient Pain Free? Yes WC - Nurse 1 - General Ulcer Measurement Start: 05/03/21 11:56 Freq: Status: Active Protocol: Activity Type Activity Date Activity User E-Sign Co-Sign Detail Recorded Client Recorded Date Recorded By Document 05/03/21 12:00 PL [id number] 05/03/21 13:11 PL Document 05/07/21 09:53 BM [id number] 05/07/21 10:04 [facility] Document 05/14/21 11:00 MW Desktop 05/14/21 11:10 MW 05/03/21 05/07/21 05/14/21 12:00 09:53 11:00 Wound Center Nurse 1 #1 Left Lat Foot Post Op -Combined with other wound No No No -Current Size (cm) - Length 6.0 6.6 6.2 -Current Size (cm) - Width 3.5 2.9 2.5 -Current Size (cm) - Depth 1.5 0.5 0.1 -Total Square Cm 21.00 19.14 15.50 -Date of Last Picture (Recall this 05/07/21 field) -Photo Taken No Yes No -Epithelialization None Present Small 1-33% -Tunneling No No No -Undermining/Tunneling No Yes No -Undermining/Tunneling Starts (O'clock 1 ) -Undermining/Tunneling Ends (O'clock) 4 -Maximum Distance (cm) 1.8 -Circular Undermining No No No -Classification - Thickness Full Thickness with Exposed Support Structure -Exudate Amt Large Large Medium -Exudate Type Serosanguineous Serosanguineous Serous -Wound Margin Flat & Intact Distinct, Flat & Intact Outline Attached -Granulation Amt Medium (34-66%) Medium (34-66%) Large (67-100%) -Granulation Quality [place] -Slough/Fibrin Yes Yes Yes -Necrosis Amt Medium (34-66%) Medium (34-66%) Small (1-33%) -Necrotic Tissue Type Eschar Adherent Slough Adherent Slough -Structure Exposed N/A -Texture (Anna-wound Skin Appearance) No Abnormality Assessed, Assessed, Scarring Scarring -Moisture (Anna-wound Skin Appearance) Dry/Scaly Assessed, No Abnormality, Maceration Assessed -Color (Anna-wound Skin Appearance) No Abnormality Assessed No Abnormality, Assessed -Temperature (Anna-wound Skin No Abnormality No Abnormality Appearance) (Pt Warm) (Pt Warm) -Tenderness on Palpation (Anna-wound No No Skin Appearance) -Ulcer Cleansing Soap and Water soapy water SOAP AND WATER -Foul Odor after Cleansing No No No -Anesthetic Used 4% Lidocaine 4% Lidocaine Solution Solution Lower Limb Edema Present No WC - Nurse 2 - General Ulcer CM Notes Start: 05/03/21 11:56 Freq: Status: Active Protocol: Activity Type Activity Date Activity User E-Sign Co-Sign Detail Recorded Client Recorded Date Recorded By Document 05/07/21 10:28 [id number] 05/07/21 10:30 Document 05/14/21 11:10 MW Desktop 05/14/21 11:13 MW 05/07/21 05/14/21 10:28 11:10 Wound Center Nurse 2 #1 Left Lat Foot Post Op -Time 10:28 11:10 -Correct Patient Yes Yes -Correct Side, Site, Position Yes Yes -Correct Procedure Yes Yes -Procedure Performed Yes Yes -Type of Procedure Debridement Debridement -Clinical Debridement Muscle / Fascia Subcutaneous -Tissue Removed Muscle Subcutaneous -Post Debridement (cm) - Length 7 6.5 -Post Debridement (cm) - Width 3.3 2.8 -Post Debridement (cm) - Depth 1.2 0.6 -Total Square (Post) (cm) 23.1 18.20 -Area of Debridement (cm) - Length 7 6.5 -Area of Debridement (cm) - Width 3.3 2.8 -Total Square (Area) (cm) 23.1 18.20 -Tunneling No No -Undermining/Tunneling No No -Circular Undermining No No -Wound/Ulcer Outcome Not Healed Not Healed -Ulcer Cleansing Rinsed/ Rinsed/ Irrigated with Irrigated with Saline Saline -Foul Odor after Cleansing No No -Bioengineered Tissue No No -Bleeding Controlled with Pressure Pressure -Offloading Yes No -Type of Offloading Surgical Shoe -Treatment Response Procedure Procedure Tolerated Well Tolerated Well -Debridement - Subq, 1st 20sq cm Yes -Debridement - Muscle / Fascia, 1st Yes 20sq cm -Debridement, Muscle/Fascia, ea addt'l 1 20sq cm or part thereof Pain Scale: 0-10 Numeric Is Patient Pain Free? Yes Yes - Nurse 3 - General Ulcer D/C NN Start: 05/03/21 11:56 Freq: Status: Active Protocol: Activity Type Activity Date Activity User E-Sign Co-Sign Detail Recorded Client Recorded Date Recorded By Document 05/03/21 13:11 PL [id number] 05/03/21 13:14 PL Document 05/07/21 10:30 JF [id number] 05/07/21 10:31 JF Document 05/07/21 10:59 ML [id number] 05/07/21 11:01 ML 05/03/21 05/07/21 05/07/21 13:11 10:30 10:59 Wound Care Nurse 3 #1 Left Lat Foot Post Op -Ulcer Cleansing Rinsed/ Rinsed/ Rinsed/ Irrigated with Irrigated with Irrigated with Saline Saline Saline -Foul Odor after Cleansing No No Yes -Negative Pressure Wound Therapy Continue Continue -Setting (mmHg) 150 150 -Negative Pressure is Continuous Continuous Continuous -NPWT Application Charge ($) NPWT </= 50 sq NPWT </= 50 sq NPWT </= 50 sq cm cm cm Left -Compression Wrap Gavin Wrap Gavin Wrap -Other gavin bilateral Pain Scale: 0-10 Numeric Is Patient Pain Free? Yes Yes Teaching: Wound Center Wound Vac -Person Taught Patient, Significant Other -Teaching Method Discussion, Demonstration -Response to teaching Verbalize understanding *Welcome to the Wound Center -Person Taught Patient, Significant Other -Teaching Method Discussion -Response to teaching Verbalize understanding WC - Visit Discharge Discharge Condition Stable Stable Ambulatory Status Wheelchair Crutches Transportation Private Auto Private Auto Accompanied by Medication Reconcilliation completed & Yes No provided to patient/care provider Clinical Summary of Care Provided Yes Yes Wound debrided: lateral foot Laterality: Left Wound Grade/Stage: andrews 2 Type of Debridement: Excisional debridement Anesthesia Used: 4% Lidocaine Solution Depth: in the subcutaneous layer Percentage of wound debrided: 100 Instrument Used: 3mm curette Tissue Removed: includes fibrous, devitalized, biofilm, callus and slough tissue Severity: Fat Layer Exposed Amount of bleeding with debridement: Mild Bleeding Controlled with: Pressure Patient tolerated procedure: Patient tolerated procedure well Assessment/Plan Assessment/Plan (1) Non-pressure chronic ulcer of other part of left foot with necrosis of muscle: CODE(S): L97.523 - Non-pressure chronic ulcer of other part of left foot with necrosis of muscle (2) Diabetes mellitus, type 2: CODE(S): E11.9 - Type 2 diabetes mellitus without complications QUALIFIERS: Diabetes mellitus complication detail: with polyneuropathy Diabetes mellitus complication status: with neurologic complications Diabetes mellitus alf insulin use: without exterminator helper use Qualified Code(s): E11.42 - Type 2 diabetes mellitus with diabetic polyneuropathy (3) Cellulitis of left foot: CODE(S): L03.116 - Cellulitis of left lower limb (4) Left foot pain: CODE(S): M79.672 - Pain in left foot (5) Necrotizing fasciitis: CODE(S): M72.6 - Necrotizing fasciitis PLAN: Patient seen and examined Wound is improved with more granulation tissue noted. Patient is ambulating with crutches nonweightbearing. Patient reports no systemic signs of illness at this time. Patient is a follow-up from the hospital after debridement from a gas gangrene infection. Wound was operated down to level of subcu but infection did not violate the bone. Patient did not undergo an amputation. There is a large deficits to the lateral aspect of his fifth metatarsal. OR cultures were noted to be positive for Proteus vulgaris, Enterococcus faecalis, Staphylococcus aureus, anaerobic cocci. Patient was discharged from the hospital with antibiotics per infectious disease which was Augmentin which patient states he will finish tomorrow. Patient is also discharged with wound VAC therapy. Patient was not able to obtain home health care coverage due to location of his home and insurance coverage. Discussed having be trained in order to manage the wound VAC. has been managing wound vac without incident. Patient is also noted to have vascular studies done on 04/29/2021 demonstrating t riphasic waveforms to PT and DP bilaterally with mild degree of large vessel disease despite noncompressible vessels. Right TBI was 0.78 and left TBI was 0.47 possibly consistent with small vessel disease. Patient is noted to have offloaded surgical shoe and crutches for offloading purposes. After verbal consent was obtained ulceration was debrided sharply Discussed importance of smoking cessation, blood sugar control, weight management, offloading, proper nutrition, infection control and hygiene to optimize healing potential. Patient is to continue wound VAC therapy 3 times a week 150 low continuous pressure with good seal. This is to be covered with dry sterile dressing with the suction cord well-padded and not against the skin. All questions answered Patient is to follow-up in 2 week This note was generated with [employer] dictation software. It may contain incorrect words, spelling, and punctuation that were not noted in checking the note before signing.
[2021-05-28 10:26] VITALS: BP 130/69; PULSE 89; RESP 16; TEMP 36; BMI 35.6
--- NOTE | 2021-05-28 12:19 | PN.PCM_ITS ---
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 Patient has significant medical history including diabetes, hypertension, coronary artery disease, anemia, aortic martinez artery bypass grafting. 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 Patient underwent surgical debridement of the wound with Dr. Gerber on 04/28/2021. There is noted to be a large deficit due to the severity of his infection. Patient was started on wound VAC therapy while in the hospital and was discharged with this. Patient was also discharged with infectious disease recommendations including Ladi etienne. It was noted that patient is not able to find a home health care company that would take him. Is discussed that his be trained between personnel at the hospital my office and wound care center to change the wound VAC and to contact us if there is any questions or concerns. Patient reports to the wound care center for continued care. Progress of Wound: Significant increase in granulation tissue noted Subjective Subjective Patient seen and examined resting comfortably. Patient denies any new pedal complaints. Patient denies any nausea, fever, chills, chest pain, shortness of breath, cough, streaking, purulence, vomiting. Patient relates he is leaving this Thursday for trip to [place] Objective Data Objective Data Vital Signs: Vital Signs Temp Pulse Resp BP 96.8 F L 89 16 130/69 H 05/28/21 10:26 05/28/21 10:26 05/28/21 10:26 05/28/21 10:26 Oxygen Delivery Method Room Air Weight: 122.47 kg Body Mass Index (BMI) 35.6 Physical Exam Skin Wound Narrative: ulcers noted to left lateral foot down to the level of fascia No malodor, purulence, probing to bone, streaking, fluctuation, crepitus, or other signs of infection. Skin is atrophic and hairless. More granulation tissue noted. Erythema resolved. No signs of infection noted. Edema noted to the left lower extremity this is improved since last visit Pulses are palpable 2 out of 4. Capillary refill time is less than 2 seconds to digits. Muscle strength 5 out of 5 for all pedal groups. Minor decrease in epicritic sensation noted. Patient also noted to be hypersensitive which is easily tickled especially to plantar foot. Debridement Note Debridement Note Post-Debridement Measurements and Additional Note: Post-Debridement Measurements/Treatment WC - Nurse 1 - General Ulcer Assessment Start: 05/03/21 11:56 Freq: Status: Active Protocol: [email or web address].LOWEXT Activity Type Activity Date Activity User E-Sign Co-Sign Detail Recorded Client Recorded Date Recorded By Document 05/03/21 12:00 PL [id number] 05/03/21 13:11 PL Document 05/07/21 09:53 BMF [id number] 05/07/21 10:04 BMF Document 05/14/21 11:00 MW Desktop 05/14/21 11:10 MW Document 05/28/21 10:26 MW [id number] 05/28/21 10:35 MW 05/03/21 05/07/21 05/14/21 12:00 09:53 11:00 WC - Today's Visit Information Type of service Nurse-only Follow-up Visit Follow-up Visit Visit (Physician/EXPERIMENTAL MECHANIC (Physician/EXPERIMENTAL MECHANIC ) ) Arrival Mode Crutches Ambulatory, Ambulatory, Walker Crutches Transfer Assistance None None Accompanied by Patient Identification Verified (Name & Yes Yes Yes ) Patient Requires Transmission-Based No No No Precautions Safety Precautions NA NA Height and Weight Height 6 ft 1 in 6 ft 1 in Weight 123.377 kg 122.47 kg Weight in Pounds 272.0 lbs 270.0 lbs Weight Measurement Method Estimated by Stated by Patient Patient Body Mass Index (BMI) 35.9 35.6 35.6 BMI Classification Obese Obese Obese BSA - Hyacinth 2.45 2.44 Vital Signs Temperature (97.8 F-99.1 F) 97.6 F L 97.8 F 97.8 F Temperature Source Temporal Temporal Temporal Pulse Rate (60-100) 76 82 86 Pulse Location Monitor Monitor Respiratory Rate (12-18) 18 16 16 Respiratory rate source Observation Observation Oxygen Delivery Method Room Air Room Air Blood Pressure (90/60-120/80) 155/85 H 112/61 102/57 L Blood Pressure Mean (mm Hg) 108 78 72 Source Monitor Monitor Position Sitting Sitting Blood Pressure Location Left Arm Left Arm History Since Last Visit- (Skip if this is Patient's initial visit) Have you changed medications since your No No last visit? Any new allergies or adverse reactions No No Had a fall/change in ADL's that may No No increase risk of falls Signs or symptoms of abuse and/or No No neglect since last visit Have you been in the hospital since your No No last visit? Has dressing in place as prescribed Yes Yes Has compression in place as prescribed Yes Yes Has offloadiing in place as prescribed Yes N/A Experienced any changes in pain level or No No management Left Footwear Surgical Shoe Regular Shoe with pressure relief insole Right Footwear Regular Shoe Regular Shoe Pain Scale: 0-10 Numeric Is Patient Pain Free? Yes 05/28/21 10:26 WC - Today's Visit Information Type of service Follow-up Visit (Physician/EXPERIMENTAL MECHANIC ) Arrival Mode Ambulatory, Crutches Transfer Assistance None Accompanied by Patient Identification Verified (Name & Yes ) Patient Requires Transmission-Based No Precautions Safety Precautions Fall Prevention Height and Weight Height Weight Weight in Pounds Weight Measurement Method Body Mass Index (BMI) 35.6 BMI Classification Obese [facility] - Hyacinth Vital Signs Temperature (97.8 F-99.1 F) 96.8 F L Temperature Source Temporal Pulse Rate (60-100) 89 Pulse Location Monitor Respiratory Rate (12-18) 16 Respiratory rate source Observation Oxygen Delivery Method Room Air Blood Pressure (90/60-120/80) 130/69 H Blood Pressure Mean (mm Hg) 89 Source Monitor Position Blood Pressure Location History Since Last Visit- (Skip if this is Patient's initial visit) Have you changed medications since your No last visit? Any new allergies or adverse reactions No Had a fall/change in ADL's that may No increase risk of falls Signs or symptoms of abuse and/or No neglect since last visit Have you been in the hospital since your No last visit? Has dressing in place as prescribed Yes Has compression in place as prescribed Yes Has offloadiing in place as prescribed N/A Experienced any changes in pain level or No management Left Footwear Surgical Shoe with pressure relief insole Right Footwear Regular Shoe Pain Scale: 0-10 Numeric Is Patient Pain Free? Yes - Nurse 1 - General Ulcer Measurement Start: 05/03/21 11:56 Freq: Status: Active Protocol: Activity Type Activity Date Activity User E-Sign Co-Sign Detail Recorded Client Recorded Date Recorded By Document 05/03/21 12:00 PL [id number] 05/03/21 13:11 PL Document 05/07/21 09:53 BMF [id number] 05/07/21 10:04 BM Document 05/14/21 11:00 MW Desktop 05/14/21 11:10 MW Document 05/28/21 10:26 MW [id number] 05/28/21 10:35 MW 05/03/21 05/07/21 05/14/21 12:00 09:53 11:00 Wound Center Nurse 1 #1 Left Lat Foot Post Op -Combined with other wound No No No -Current Size (cm) - Length 6.0 6.6 6.2 -Current Size (cm) - Width 3.5 2.9 2.5 -Current Size (cm) - Depth 1.5 0.5 0.1 -Total Square Cm 21.00 19.14 15.50 -Date of Last Picture (Recall this 05/07/21 field) -Photo Taken No Yes No -Epithelialization None Present Small 1-33% -Tunneling No No No -Undermining/Tunneling No Yes No -Undermining/Tunneling Starts (O'clock 1 ) -Undermining/Tunneling Ends (O'clock) 4 -Maximum Distance (cm) 1.8 -Circular Undermining No No No -Classification - Thickness Full Thickness with Exposed Support Structure -Exudate Amt Large Large Medium -Exudate Type Serosanguineous Serosanguineous Serous -Wound Margin Flat & Intact Distinct, Flat & Intact Outline Attached -Granulation Amt Medium (34-66%) Medium (34-66%) Large (67-100%) -Granulation Quality Farnam Red Farnam -Slough/Fibrin Yes Yes Yes -Necrosis Amt Medium (34-66%) Medium (34-66%) Small (1-33%) -Necrotic Tissue Type Eschar Adherent Slough Adherent Slough -Structure Exposed N/A -Texture (Anna-wound Skin Appearance) No Abnormality Assessed, Assessed, Scarring Scarring -Moisture (Anna-wound Skin Appearance) Dry/Scaly Assessed, No Abnormality, Maceration Assessed -Color (Anna-wound Skin Appearance) No Abnormality Assessed No Abnormality, Assessed -Temperature (Anna-wound Skin No Abnormality No Abnormality Appearance) (Pt Warm) (Pt Warm) -Tenderness on Palpation (Anna-wound No No Skin Appearance) -Ulcer Cleansing Soap and Water soapy water SOAP AND WATER -Foul Odor after Cleansing No No No -Anesthetic Used 4% Lidocaine 4% Lidocaine Solution Solution Lower Limb Edema Present No 07/27/21 10:26 Wound Center Nurse 1 #1 Left Lat Foot Post Op -Combined with other wound No -Current Size (cm) - Length 2.8 -Current Size (cm) - Width 5.5 -Current Size (cm) - Depth 0.2 -Total Square Cm 15.40 -Date of Last Picture (Recall this field) -Photo Taken No -Epithelialization None Present -Tunneling No -Undermining/Tunneling No -Undermining/Tunneling Starts (O'clock ) -Undermining/Tunneling Ends (O'clock) -Maximum Distance (cm) -Circular Undermining No -Classification - Thickness -Exudate Amt Large -Exudate Type Sanguineous -Wound Margin Flat & Intact -Granulation Amt Large (67-100%) -Granulation Quality Red -Slough/Fibrin Yes -Necrosis Amt Small (1-33%) -Necrotic Tissue Type Adherent Slough -Structure Exposed N/A -Texture (Anna-wound Skin Appearance) Assessed, Scarring -Moisture (Anna-wound Skin Appearance) No Abnormality, Assessed -Color (Anna-wound Skin Appearance) No Abnormality, Assessed -Temperature (Anna-wound Skin No Abnormality Appearance) (Pt Warm) -Tenderness on Palpation (Anna-wound Yes Skin Appearance) -Ulcer Cleansing soap and water -Foul Odor after Cleansing No -Anesthetic Used 4% Lidocaine Solution Lower Limb Edema Present No - Nurse 2 - General Ulcer CM Notes Start: 05/03/21 11:56 Freq: Status: Active Protocol: Activity Type Activity Date Activity User E-Sign Co-Sign Detail Recorded Client Recorded Date Recorded By Document 05/07/21 10:28 [id number] 05/07/21 10:30 Document 05/14/21 11:10 Desktop 05/14/21 11:13 Document 05/28/21 10:57 [id number] 05/28/21 11:03 05/07/21 05/14/21 05/28/21 10:28 11:10 10:57 Wound Center Nurse 2 #1 Left Lat Foot Post Op -Time 10:28 11:10 11:01 -Correct Patient Yes Yes Yes -Correct Side, Site, Position Yes Yes Yes -Correct Procedure Yes Yes Yes -Procedure Performed Yes Yes Yes -Type of Procedure Debridement Debridement Debridement -Clinical Debridement Muscle / Fascia Subcutaneous Subcutaneous -Tissue Removed Muscle Subcutaneous Subcutaneous -Post Debridement (cm) - Length 7 6.5 6.0 -Post Debridement (cm) - Width 3.3 2.8 3.2 -Post Debridement (cm) - Depth 1.2 0.6 0.4 -Total Square (Post) (cm) 23.1 18.20 19.20 -Area of Debridement (cm) - Length 7 6.5 6 -Area of Debridement (cm) - Width 3.3 2.8 3.2 -Total Square (Area) (cm) 23.1 18.20 19.2 -Tunneling No No No -Undermining/Tunneling No No No -Circular Undermining No No No -Wound/Ulcer Outcome Not Healed Not Healed Not Healed -Ulcer Cleansing Rinsed/ Rinsed/ Rinsed/ Irrigated with Irrigated with Irrigated with Saline Saline Saline -Foul Odor after Cleansing No No No -Bioengineered Tissue No No No -Bleeding Controlled with Pressure Pressure Pressure -Offloading Yes No Yes -Type of Offloading Surgical Shoe Surgical Shoe -Treatment Response Procedure Procedure Procedure Tolerated Well Tolerated Well Tolerated Well -Debridement - Subq, 1st 20sq cm Yes Yes -Debridement - Muscle / Fascia, 1st Yes 20sq cm -Debridement, Muscle/Fascia, ea addt'l 1 20sq cm or part thereof Pain Scale: 0-10 Numeric Is Patient Pain Free? Yes Yes Yes - Nurse 3 - General Ulcer D/C NN Start: 05/03/21 11:56 Freq: Status: Active Protocol: Activity Type Activity Date Activity User E-Sign Co-Sign Detail Recorded Client Recorded Date Recorded By Document 05/03/21 13:11 PL [id number] 05/03/21 13:14 PL Document 05/07/21 10:30 JF [id number] 05/07/21 10:31 JF Document 05/07/21 10:59 ML [id number] 05/07/21 11:01 ML Document 05/14/21 11:15 PL [id number] 05/15/21 06:58 PL Document 05/28/21 11:31 MW [id number] 05/28/21 11:32 MW 05/03/21 05/07/21 05/07/21 13:11 10:30 10:59 Wound Care Nurse 3 #1 Left Lat Foot Post Op -Ulcer Cleansing Rinsed/ Rinsed/ Rinsed/ Irrigated with Irrigated with Irrigated with Saline Saline Saline -Foul Odor after Cleansing No No Yes -Negative Pressure Wound Therapy Continue Continue -Setting (mmHg) 150 150 -Negative Pressure is Continuous Continuous Continuous -Other Dressing -Other Covering -NPWT Application Charge ($) NPWT </= 50 sq NPWT </= 50 sq NPWT </= 50 sq cm cm cm Left -Lotion applied to leg before compression wrap -Compression Wrap Gavin Wrap Gavin Wrap -Other gavin bilateral Treatment Response Pain Scale: 0-10 Numeric Is Patient Pain Free? Yes Yes Teaching: Wound Center Dressing Your Wound -Person Taught -Teaching Method -Response to teaching Wound Vac -Person Taught Patient, Significant Other -Teaching Method Discussion, Demonstration -Response to teaching Verbalize understanding *Welcome to the Wound Center -Person Taught Patient, Significant Other -Teaching Method Discussion -Response to teaching Verbalize understanding WC - Visit Discharge Discharge Condition Stable Stable Ambulatory Status Wheelchair Crutches Transportation Private Auto Private Auto Accompanied by Medication Reconcilliation completed & Yes No provided to patient/care provider Clinical Summary of Care Provided Yes Yes 05/14/21 05/28/21 11:15 11:31 Wound Care Nurse 3 #1 Left Lat Foot Post Op -Ulcer Cleansing Rinsed/ Rinsed/ Irrigated with Irrigated with Saline Saline -Foul Odor after Cleansing No No -Negative Pressure Wound Therapy Continue Continue -Setting (mmHg) 150 150 -Negative Pressure is Continuous Continuous -Other Dressing black foam -Other Covering drape -NPWT Application Charge ($) NPWT </= 50 sq NPWT </= 50 sq cm cm Left -Lotion applied to leg before No compression wrap -Compression Wrap Gavin Wrap -Other Treatment Response Procedure Tolerated Well Pain Scale: 0-10 Numeric Is Patient Pain Free? Yes Teaching: Wound Center Dressing Your Wound -Person Taught Patient,Family -Teaching Method Discussion, Demonstration -Response to teaching Verbalize understanding Wound Vac -Person Taught -Teaching Method -Response to teaching *Welcome to the Wound Center -Person Taught -Teaching Method -Response to teaching WC - Visit Discharge Discharge Condition Stable Ambulatory Status Ambulatory, Crutches Transportation Private Auto Accompanied by Medication Reconcilliation completed & No provided to patient/care provider Clinical Summary of Care Provided Yes Wound debrided: Lateral forefoot Laterality: Left Wound Grade/Stage: Senior 2 Type of Debridement: Excisional debridement Anesthesia Used: 4% Lidocaine Solution Depth: in the subcutaneous layer Percentage of wound debrided: 100 Instrument Used: 3mm curette Tissue Removed: includes fibrous, devitalized, biofilm, callus and slough tissue Severity: Fat Layer Exposed Amount of bleeding with debridement: Mild Bleeding Controlled with: Pressure Patient tolerated procedure: Patient tolerated procedure well Assessment/Plan Assessment/Plan (1) Non-pressure chronic ulcer of other part of left foot with necrosis of muscle: CODE(S): L97.523 - Non-pressure chronic ulcer of other part of left foot with necrosis of muscle (2) Diabetes mellitus, type 2: CODE(S): E11.9 - Type 2 diabetes mellitus without complications QUALIFIERS: Diabetes mellitus complication detail: with polyneur opathy Diabetes mellitus complication status: with neurologic complications 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 Patient is noted to have offloaded surgical shoe and wheelchair for offloading patient reports no systemic signs of illness at this time. Patient is a follow-up from the hospital after debridement from a gas gangrene infection. Wound was operated down to level of subcu but infection did not violate the bone. Patient did not undergo an amputation. There is a large deficits to the lateral aspect of his fifth metatarsal. OR cultures were noted to be positive for Proteus vulgaris, Enterococcus faecalis, Staphylococcus aureus, anaerobic cocci. Patient was discharged from the hospital with antibiotics per infectious disease which was Augmentin which patient states he will finish tomorrow. Patient is also discharged with wound VAC therapy. Patient was not able to obtain home health care coverage due to location of his home and insurance coverage. Discussed having be trained in order to m anage the wound VAC. has been managing wound vac without incident. Patient is also noted to have vascular studies done on 04/29/2021 demonstrating triphasic waveforms to PT and DP bilaterally with mild degree of large vessel disease despite noncompressible vessels. Right TBI was 0.78 and left TBI was 0.47 possibly consistent with small vessel disease. Patient is noted to have offloaded surgical shoe and crutches for offloading purposes. He is also gotten a wheelchair for offloading. After verbal consent was obtained ulceration was debrided sharply Discussed importance of smoking cessation, blood sugar control, weight management, offloading, proper nutrition, infection control and hygiene to optimize healing potential. Patient is to continue wound VAC therapy 3 times a week 150 low continuous pressure with good seal. This is to be covered with dry sterile dressing with the suction cord well-padded and not against the skin. Patient is noted to be going to [place] for vacation on Thursday this week. Discussed continue wound VAC until this time. Discussed switching over to fibracol or collagen silver-based dressing covered by dry sterile dressing to be changed daily while he is on vacation for the next week until he is able to follow-up with me the following week. If patient has any concerning signs or symptoms he is to call the wound care center in my office for further direction. Application for Apligraf wound graft will be submitted for hopeful application upon return from vacation All questions answered Patient is to follow-up in 2 week This note was generated with [employer] dictation software. It may contain incorrect words, spelling, and punctuation that were not noted in checking the note before signing.
== END 2021-06-01 23:59 ==
LOC: WC 10:00
PROVIDERS: PCP Physician Assistant Medical; Referring Provider Hospitalist; Visit Provider Podiatrist Foot & Ankle Surgery
DX: E11.621 Type 2 diabetes mellitus with foot ulcer (principal); L97.522 Non-pressure chronic ulcer of other part of left foot with fat layer exposed; E11.42 Type 2 diabetes mellitus with diabetic polyneuropathy; B96.4 Proteus (mirabilis) (morganii) as the cause of diseases classified elsewhere; B95.2 Enterococcus as the cause of diseases classified elsewhere; A49.01 Methicillin susceptible Staphylococcus aureus infection, unspecified site
CPT/HCPCS: 11042; 11043; 11046; 97605; 99213; G0463

== ENCOUNTER 2021-06-25 10:15 | Outpatient (RCR) | payer BC, MEDICAID, SELFPAY ==
[2021-06-02 00:13] VITALS: BP 130/69; PULSE 89; RESP 16; TEMP 36
[2021-06-11 09:57] VITALS: BP 111/64; PULSE 89; RESP 22; TEMP 36.8; BMI 35.6
--- NOTE | 2021-06-11 10:01 | PN.PCM_ITS ---
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 Patient has significant medical history including diabetes, hypertension, coronary artery disease, anemia, aortic martinez artery bypass grafting. 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 Patient underwent surgical debridement of the wound with Dr. Gerber on 04/28/2021. There is noted to be a large deficit due to the severity of his infection. Patient was started on wound VAC therapy while in the hospital and was discharged with this. Patient was also discharged with infectious disease recommendations including Ladi etienne. It was noted that patient is not able to find a home health care company that would take him. Is discussed that his be trained between personnel at the hospital my office and wound care center to change the wound VAC and to contact us if there is any questions or concerns. Patient reports to the wound care center for continued care. Progress of Wound: Improved Subjective Subjective Patient seen and examined resting comfortably. Patient denies any new pedal complaints. Patient denies any nausea, fever, chills, chest pain, shortness of breath, cough, streaking, purulence, vomiting. Objective Data Objective Data Vital Signs: Vital Signs Temp Pulse Resp BP 96.8 F L 89 16 130/69 H 06/02/21 00:13 06/02/21 00:13 06/02/21 00:13 06/02/21 00:13 Weight: 122.47 kg Body Mass Index (BMI) 35.6 Physical Exam Narrative Skin Wound Narrative: ulcers noted to left lateral foot down to the level of fascia No malodor, purulence, probing to bone, streaking, fluctuation, crepitus, or other signs of infection. Skin is atrophic and hairless. More granulation tissue noted. Erythema resolved. No signs of infection noted. Edema noted to the left lower extremity this is improved since last visit VASC Pulses are palpable 2 out of 4. Capillary refill time is less than 2 seconds to digits. MSK Muscle strength 5 out of 5 for all pedal groups. NEURO Minor decrease in epicritic sensation noted. Patient also noted to be hypersensitive which is easily tickled especially to plantar foot. Debridement Note Debridement Note Post-Debridement Measurements and Additional Note: Wound Measurements and Assessment WC - Nurse 1 - General Ulcer Measurement Start: 06/11/21 09:57 Freq: Status: Active Protocol: Activity Type Activity Date Activity User E-Sign Co-Sign Detail Recorded Client Recorded Date Recorded By Document 06/11/21 09:57 DL Desktop 06/11/21 10:02 DL 06/11/21 09:57 Wound Center Nurse 1 [Ulcer Assessment] #1 Left Lat Foot Post Op -Current Size (cm) - Length 5 -Current Size (cm) - Width 2.8 -Current Size (cm) - Depth 0.1 -Total Square Cm 14.0 -Photo Taken No -Exudate Amt Medium -Exudate Type Serosanguineous -Wound Margin Distinct, Outline Attached -Granulation Amt Large (67-100%) -Granulation Quality Red -Necrosis Amt Small (1-33%) -Necrotic Tissue Type Adherent Slough -Structure Exposed N/A -Texture (Anna-wound Skin Appearance) Scarring -Moisture (Anna-wound Skin Appearance Maceration ) -Color (Anna-wound Skin Appearance) Assessed -Temperature (Anna-wound Skin No Abnormality Appearance) (Pt Warm) -Tenderness on Palpation (Anna-wound No Skin Appearance) -Ulcer Cleansing Wound Cleanser -Foul Odor after Cleansing No -Anesthetic Used 4% Lidocaine Solution WC - Nurse 2 - General Ulcer CM Notes Start: 06/11/21 09:57 Freq: Status: Active Protocol: Activity Type Activity Date Activity User E-Sign Co-Sign Detail Recorded Client Recorded Date Recorded By Document 06/11/21 10:09 GBABI [id number] 06/11/21 10:15 GABBI 06/11/21 10:09 Wound Center Nurse 2 [Procedure/Treatment] -Time 10:13 -Correct Patient Yes -Correct Side, Site, Position Yes -Correct Procedure Yes -Procedure Performed Yes -Type of Procedure Debridement -Clinical Debridement Subcutaneous -Tissue Removed Subcutaneous -Post Debridement (cm) - Length 4.8 -Post Debridement (cm) - Width 2.6 -Post Debridement (cm) - Depth 0.1 -Total Square (Post) (cm) 12.48 -Area of Debridement (cm) - Length 4.8 -Area of Debridement (cm) - Width 2.6 -Total Square (Area) (cm) 12.48 -Tunneling No -Undermining/Tunneling No -Circular Undermining No -Wound/Ulcer Outcome Not Healed -Ulcer Cleansing Rinsed/ Irrigated with Saline -Foul Odor after Cleansing No -Bioengineered Tissue Yes -Type of Bioengineered Tissue Epifix Mesh -Expiration Date 03/02/26 -Product Lot Number [id number] -Percent Used 100 -Lot number of Saline Used [id number] -Bleeding Controlled with Pressure -Offloading Yes -Type of Offloading Surgical Shoe -Treatment Response Procedure Tolerated Well -Debridement - Subq, 1st 20sq cm No -Apply Skin Sub - 1st 25 sq cm - Feet 1 -Epifix Mesh (per sq cm) 11 [See Physician Procedure note for Specifics] Pain Scale: 0-10 Numeric [Pain] -Is Patient Pain Free? Yes - Nurse 3 - General Ulcer D/C NN Start: 06/11/21 09:57 Freq: Status: Active Protocol: Activity Type Activity Date Activity User E-Sign Co-Sign Detail Recorded Client Recorded Date Recorded By Document 06/11/21 10:15 GABBI [id number] 06/11/21 10:16 GABBI 06/11/21 10:15 Wound Care Nurse 3 [Wound Dressing] #1 Left Lat Foot Post Op -Ulcer Cleansing Rinsed/ Irrigated with Saline -Foul Odor after Cleansing No -Primary Dressing Covered/Secured Dry Gauze & with Roll Gauze, Secured with Tape [Compression Applied] Left -Compression Wrap Gavin Wrap Pain Scale: 0-10 Numeric [Pain] -Is Patient Pain Free? Yes - Visit Discharge [Visit Discharge Information] -Discharge Condition Stable -Ambulatory Status Ambulatory -Transportation Private Auto -Medication Reconcilliation completed Yes & provided to patient/care provider -Clinical Summary of Care Provided Yes Wound debrided: Lateral forefoot Laterality: Left Wound Grade/Stage: Senior 1 Type of Debridement: Excisional debridement Anesthesia Used: 4% Lidocaine Solution Depth: in the subcutaneous layer Percentage of wound debrided: 100 Instrument Used: 3mm curette Tissue Removed: includes fibrous, devitalized, biofilm, callus and slough tissue Severity: Fat Layer Exposed Amount of bleeding with debridement: Mild Bleeding Controlled with: Pressure Patient tolerated procedure: Patient tolerated procedure well Assessment/Plan Assessment/Plan (1) Non-pressure chronic ulcer of other part of left foot with necrosis of muscle: CODE(S): L97.523 - Non-pressure chronic ulcer of other part of left foot with necrosis of muscle (2) Necrotizing fasciitis: CODE(S): M72.6 - Necrotizing fasciitis (3) Diabetes mellitus, type 2: CODE(S): E11.9 - Type 2 diabetes mellitus without complications QUALIFIERS: Diabetes mellitus complication detail: with polyneuropathy Diabetes mellitus complication status: with neurologic complications Diabetes mellitus correction insulin use: without terminal gauger use Qualified Code(s): E11.42 - Type 2 diabetes mellitus with diabetic polyneuropathy PLAN: Patient seen and examined with present. Patient relates that while in [place] he did go in the laser but was able to keep his foot dry. He relates no issues on vacation as far as his foot wound went. Wound is improved with more granulation tissue noted. Patient is noted to have offloaded surgical shoe and wheelchair for offloading patient reports no systemic signs of illness at this time. Patient is a follow-up from the hospital after debridement from a gas gangrene infection. Wound was operated down to level of subcu but infection did not violate the bone. Patient did not undergo an amputation. There is a large deficits to the lateral aspect of his fifth metatarsal. OR cultures were noted to be positive for Proteus vulgaris, Enterococcus faecalis, Staphylococcus aureus, anaerobic cocci. Patient was discharged from the hospital with antibiotics per infectious disease which was Augmentin which patient states he will finish tomorrow. Patient is also discharged with wound VAC therapy. Patient was not able to obtain home health care coverage due to location of his home and insurance coverage. Discussed having be trained in order to manage the wound VAC. has been managing wound vac without incident. Patient is also noted to have vascular studies done on 04/29/2021 demonstrating triphasic waveforms to PT and DP bilaterally with mild degree of large vessel disease despite noncompressible vessels. Right TBI was 0.78 and left TBI was 0.47 possibly consistent with small vessel disease. Patient is noted to have offloaded surgical shoe and crutches for offloading purposes. He is also gotten a wheelchair for offloading. After verbal consent was obtained ulceration was debrided sharply Discussed importance of smoking cessation, blood sugar control, weight management, offloading, proper nutrition, infection control and hygiene to optimize healing potential. Patient is to stop wound VAC therapy Patient was approved for epi fix graft application I recommend application of advanced wound healing product to the indicated ulceration. Prior authorization was confirmed. The indications, benefits, anticipated application and healing time management were reviewed in detail. Verbal consent was obtained in the procedure for today. Site was debrided and graft was applied according to standard protocol and was further secured with a nonadherent dressing and Steri-Strips. Patient instructed that they can change outer dressing but not to go beneath the Steri-Strips. All questions answered Patient is to follow-up in 1 week This note was generated with [employer] software. It may contain incorrect words, spelling, and punctuation that were not noted in checking the note before signing.
[2021-06-18 10:29] VITALS: BP 123/71; PULSE 94; RESP 18; TEMP 36.6; BMI 35.6
--- NOTE | 2021-06-18 11:47 | PCM.WC.PN ---
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 Patient has significant medical history including diabetes, hypertension, coronary artery disease, anemia, aortic martinez artery bypass grafting. 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 Patient underwent surgical debridement of the wound with Dr. Gerber on 04/28/2021. There is noted to be a large deficit due to the severity of his infection. Patient was started on wound VAC therapy while in the hospital and was discharged with this. Patient was also discharged with infectious disease recommendations including Augmentin. It was noted that patient is not able to find a home health care company that would take him. Is discussed that his be trained between personnel at the hospital my office and wound care center to change the wound VAC and to contact us if there is any questions or concerns. Patient reports to the wound care center for continued care. Patient has finished wound VAC therapy. He has been approved for epi fix grafting. Progress of Wound: Stable slightly larger size Subjective Subjective Patient seen and examined resting comfortably. Patient denies any new pedal complaints. Patient denies any nausea, fever, chills, chest pain, shortness of breath, cough, streaking, purulence, vomiting. Patient relates that he has been on his foot more. Objective Data Objective Data Vital Signs: Vital Signs Temp Pulse Resp BP 98 F 94 18 123/71 H 06/18/21 10:29 06/18/21 10:29 06/18/21 10:29 06/18/21 10:29 Oxygen Delivery Method Room Air Weight: 122.47 kg Body Mass Index (BMI) 35.6 Physical Exam Narrative Skin Wound Narrative: ulcers noted to left lateral foot down to the level of fascia No malodor, purulence, probing to bone, streaking, fluctuation, crepitus, or other signs of infection. Skin is atrophic and hairless. Granulation tissue noted. No signs of infection noted. Edema noted to the left lower extremity VASC Pulses are palpable 2 out of 4. Capillary refill time is less than 2 seconds to digits. MSK Muscle strength 5 out of 5 for all pedal groups. NEURO Minor decrease in epicritic sensation noted. Patient also noted to be hypersensitive which is easily tickled especially to plantar foot. Debridement Note Debridement Note Post-Debridement Measurements and Additional Note: Post-Debridement Measurements/Treatment - Nurse 1 - General Ulcer Assessment Start: 06/11/21 09:57 Freq: Status: Active Protocol: MARILYN Activity Type Activity Date Activity User E-Sign Co-Sign Detail Recorded Client Recorded Date Recorded By Document 06/11/21 09:57 DL Desktop 06/11/21 10:02 DL Document 06/18/21 10:29 [facility] [id number] 06/18/21 10:38 BM 06/11/21 06/18/21 09:57 10:29 - Today's Visit Information Type of service Follow-up Visit Follow-up Visit (Physician/MEDICAL ASSISTING INSTRUCTOR (Physician/MEDICAL ASSISTING INSTRUCTOR ) ) Arrival Mode Ambulatory, Ambulatory, Walker Crutches Transfer Assistance None None Accompanied by Patient Identification Verified (Name & Yes Yes ) Patient Requires Transmission-Based No No Precautions Finger Stick Blood Sugar(mg/dl) (if not checked indicated): Blood Sugar Stated by Patient Height and Weight Body Mass Index (BMI) 35.6 35.6 BMI Classification Obese Obese Vital Signs Temperature (97.8 F-99.1 F) 98.2 F 98 F Temperature Source Temporal Temporal Pulse Rate (60-100) 89 94 Pulse Location Monitor Monitor Respiratory Rate (12-18) 22 H 18 Respiratory rate source Observation Observation Oxygen Delivery Method Room Air Blood Pressure (90/60-120/80) 111/64 123/71 H Blood Pressure Mean (mm Hg) 79 88 Source Monitor Monitor Position Sitting Blood Pressure Location Right Arm History Since Last Visit- (Skip if this is Patient's initial visit) Have you changed medications since your No No last visit? Any new allergies or adverse reactions No No Had a fall/change in ADL's that may No increase risk of falls Signs or symptoms of abuse and/or No No neglect since last visit Have you been in the hospital since your No No last visit? Has dressing in place as prescribed Yes Yes Has compression in place as prescribed N/A Yes Has offloadiing in place as prescribed Yes Yes Experienced any changes in pain level or No management Left Footwear Slipper Surgical Shoe with pressure relief insole Right Footwear Regular Shoe Regular Shoe Pain Scale: 0-10 Numeric Is Patient Pain Free? Yes Yes [place] Nurse 1 - General Ulcer Measurement Start: 06/11/21 09:57 Freq: Status: Active Protocol: Activity Type Activity Date Activity User E-Sign Co-Sign Detail Recorded Client Recorded Date Recorded By Document 06/11/21 09:57 DL Desktop 06/11/21 10:02 DL Document 06/18/21 10:29 [facility] [id number] 06/18/21 10:38 [facility] 06/11/21 06/18/21 09:57 10:29 Wound Center Nurse 1 #1 Left Lat Foot Post Op -Current Size (cm) - Length 5 5.4 -Current Size (cm) - Width 2.8 2.3 -Current Size (cm) - Depth 0.1 0.5 -Total Square Cm 14.0 12.42 -Photo Taken No -Exudate Amt Medium Medium -Exudate Type Serosanguineous Serosanguineous -Wound Margin Distinct, Distinct, Outline Outline Attached Attached -Granulation Amt Large (67-100%) Medium (34-66%) -Granulation Quality Red Red -Necrosis Amt Small (1-33%) Medium (34-66%) -Necrotic Tissue Type Adherent Slough Adherent Slough -Structure Exposed N/A -Texture (Anna-wound Skin Appearance) Scarring Assessed, Scarring -Moisture (Anna-wound Skin Appearance) Maceration Assessed, Maceration -Color (Anna-wound Skin Appearance) Assessed No Abnormality, Assessed -Temperature (Anna-wound Skin No Abnormality No Abnormality Appearance) (Pt Warm) (Pt Warm) -Tenderness on Palpation (Anna-wound No No Skin Appearance) -Ulcer Cleansing Wound Cleanser soap and water -Foul Odor after Cleansing No No -Anesthetic Used 4% Lidocaine 4% Lidocaine Solution Solution WC - Nurse 2 - General Ulcer CM Notes Start: 06/11/21 09:57 Freq: Status: Active Protocol: Activity Type Activity Date Activity User E-Sign Co-Sign Detail Recorded Client Recorded Date Recorded By Document 06/11/21 10:09 [id number] 06/11/21 10:15 Document 06/18/21 11:05 [id number] 06/18/21 11:11 06/11/21 06/18/21 10:09 11:05 Wound Center Nurse 2 #1 Left Lat Foot Post Op -Time 10:13 11:08 -Correct Patient Yes Yes -Correct Side, Site, Position Yes Yes -Correct Procedure Yes Yes -Procedure Performed Yes Yes -Type of Procedure Debridement Debridement -Clinical Debridement Subcutaneous Subcutaneous -Tissue Removed Subcutaneous Subcutaneous -Post Debridement (cm) - Length 4.8 5.4 -Post Debridement (cm) - Width 2.6 2.5 -Post Debridement (cm) - Depth 0.1 0.2 -Total Square (Post) (cm) 12.48 13.50 -Area of Debridement (cm) - Length 4.8 5.4 -Area of Debridement (cm) - Width 2.6 2.5 -Total Square (Area) (cm) 12.48 13.50 -Tunneling No No -Undermining/Tunneling No No -Circular Undermining No No -Wound/Ulcer Outcome Not Healed Not Healed -Ulcer Cleansing Rinsed/ Rinsed/ Irrigated with Irrigated with Saline Saline -Foul Odor after Cleansing No No -Bioengineered Tissue Yes Yes -Type of Bioengineered Tissue Epifix Mesh Epifix Mesh -Expiration Date 03/02/26 03/02/26 -Product Lot Number [id number] -Percent Used 100 100 -Lot number of Saline Used [id number] -Bleeding Controlled with Pressure Pressure -Offloading Yes Yes -Type of Offloading Surgical Shoe Surgical Shoe -Treatment Response Procedure Procedure Tolerated Well Tolerated Well -Debridement - Subq, 1st 20sq cm No No -Apply Skin Sub - 1st 25 sq cm - Feet 1 -Apply Skin Sub - each addt'l 25 sq cm 1 - Feet -Epifix Mesh (per sq cm) 11 11 Pain Scale: 0-10 Numeric Is Patient Pain Free? Yes Yes - Nurse 3 - General Ulcer D/C NN Start: 06/11/21 09:57 Freq: Status: Active Protocol: Activity Type Activity Date Activity User E-Sign Co-Sign Detail Recorded Client Recorded Date Recorded By Document 06/11/21 10:15 GABBI [id number] 06/11/21 10:16 JF Document 06/18/21 11:16 JF [id number] 06/18/21 11:17 GABBI 06/11/21 06/18/21 10:15 11:16 Wound Care Nurse 3 #1 Left Lat Foot Post Op -Ulcer Cleansing Rinsed/ Rinsed/ Irrigated with Irrigated with Saline Saline -Foul Odor after Cleansing No No -Primary Dressing Covered/Secured with Dry Gauze & Dry Gauze & Roll Gauze, Roll Gauze, Secured with Secured with Tape Tape Left -Compression Wrap Gavin Wrap Gavin Wrap Pain Scale: 0-10 Numeric Is Patient Pain Free? Yes Yes WC - Visit Discharge Discharge Condition Stable Stable Ambulatory Status Ambulatory Ambulatory, Crutches Transportation Private Auto Private Auto Medication Reconcilliation completed & Yes Yes provided to patient/care provider Clinical Summary of Care Provided Yes Yes Wound debrided: Lateral forefoot Laterality: Left Wound Grade/Stage: Senior 1 Type of Debridement: Excisional debridement Anesthesia Used: 4% Lidocaine Solution Depth: in the subcutaneous layer Percentage of wound debrided: 100 Instrument Used: 3mm curette Tissue Removed: includes fibrous, devitalized, biofilm, callus and slough tissue Severity: Fat Layer Exposed Amount of bleeding with debridement: Mild Bleeding Controlled with: Pressure Patient tolerated procedure: Patient tolerated procedure well Assessment/Plan Assessment/Plan (1) Non-pressure chronic ulcer of other part of left foot with necrosis of muscle: CODE(S): L97.523 - Non-pressure chronic ulcer of other part of left foot with necrosis of muscle (2) Necrotizing fasciitis: CODE(S): M72.6 - Necrotizing fasciitis (3) Diabetes mellitus, type 2: CODE(S): E11.9 - Type 2 diabetes mellitus without complications QUALIFIERS: Diabetes mellitus nursing home insulin use: without nursing home use Diabetes mellitus complication status: with neurologic complications Diabetes mellitus complication detail: with polyneuropathy Qualified Code(s): E11.42 - Type 2 diabetes mellitus with diabetic polyneuropathy PLAN: Patient seen and examined with present. He relates being more active this week. There is some enlarging of the wound noted. Wound is still healthy in appearance. Wound is improved with more granulation tissue noted. Patient is noted to have offloaded surgical shoe and wheelchair or crutches for offloading patient reports no systemic signs of illness at this time. Patient is a follow-up from the hospital after debridement from a gas gangrene infection. Wound was operated down to level of subcu but infection did not violate the bone. Patient did not undergo an amputation. There is a large deficits to the lateral aspect of his fifth metatarsal. OR cultures were noted to be positive for Proteus vulgaris, Enterococcus faecalis, Staphylococcus aureus, anaerobic cocci. Patient is also noted to have vascular studies done on 04/29/2021 demonstrating triphasic waveforms to PT and DP bilaterally with mild degree of large vessel disease despite noncompressible vessels. Right TBI was 0.78 and left TBI was 0.47 possibly consistent with small vessel disease. After verbal consent was obtained ulceration was debrided sharply Discussed importance of smoking cessation, blood sugar control, weight management, offloading, proper nutrition, infection control and hygiene to optimize healing potential. Patient hemoglobin A1c was 9.5% on 04/28/2021. Patient relates that he is currently in the 300s and has gotten sick when he got below 200 before. Discussed follow-up with primary care provider in order to have better control over his blood sugar. Discussed that this is impacting his healing. 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 Patient relates that he has been to multiple of them in the past and has no desire to go back to another one. Patient was approved for epi fix graft application I recommend application of advanced wound healing product to the indicated ulceration. Prior authorization was confirmed. The indications, benefits, anticipated application and healing time management were reviewed in detail. Verbal consent was obtained in the procedure for today. Site was debrided and graft was applied according to standard protocol and was further secured with a nonadherent dressing and Steri-Strips. Patient instructed that they can change outer dressing but not to go beneath the Steri-Strips. All questions answered Patient is to follow-up in 1 week This note was generated with [employer] dictation software. It may contain incorrect words, spelling, and punctuation that were not noted in checking the note before signing.
[2021-06-25 10:57] VITALS: BP 115/65; PULSE 87; RESP 16; TEMP 36.4; BMI 35.6
--- NOTE | 2021-06-25 11:23 | PN.PCM_ITS ---
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 Patient has significant medical history including diabetes, hypertension, coronary artery disease, anemia, aortic martinez artery bypass grafting. 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 Patient underwent surgical debridement of the wound with Dr. Gerber on 04/28/2021. There is noted to be a large deficit due to the severity of his infection. Patient was started on wound VAC therapy while in the hospital and was discharged with this. Patient was also discharged with infectious disease recommendations including Ladi etienne. It was noted that patient is not able to find a home health care company that would take him. Is discussed that his be trained between personnel at the hospital my office and wound care center to change the wound VAC and to contact us if there is any questions or concerns. Patient reports to the wound care center for continued care. Patient has finished wound VAC therapy. He has been approved for epi fix grafting. Progress of Wound: Improved Subjective Subjective Patient seen and examined resting comfortably. Patient denies any new pedal complaints. Patient denies any nausea, fever, chills, chest pain, shortness of breath, cough, streaking, purulence, vomiting. Objective Data Objective Data Vital Signs: Vital Signs Temp Pulse Resp BP 97.5 F L 87 16 115/65 06/25/21 10:57 06/25/21 10:57 06/25/21 10:57 06/25/21 10:57 Oxygen Delivery Method Room Air Weight: 122.47 kg Body Mass Index (BMI) 35.6 Physical Exam Narrative Skin Wound Narrative: ulcers noted to left lateral foot down to the level of fascia No malodor, purulence, probing to bone, streaking, fluctuation, crepitus, or other signs of infection. Skin is atrophic and hairless. Granulation tissue noted. No signs of infection noted. Edema noted to the left lower extremity VASC Pulses are palpable 2 out of 4. Capillary refill time is less than 2 seconds to digits. MSK Muscle strength 5 out of 5 for all pedal groups. NEURO Minor decrease in epicritic sensation noted. Patient also noted to be hypersensitive which is easily tickled especially to plantar foot. Debridement Note Debridement Note Post-Debridement Measurements and Additional Note: Post-Debridement Measuremen ts/Treatment WC - Nurse 1 - General Ulcer Assessment Start: 06/11/21 09:57 Freq: Status: Active Protocol: [email or web address] Activity Type Activity Date Activity User E-Sign Co-Sign Detail Recorded Client Recorded Date Recorded By Document 06/11/21 09:57 DL Desktop 06/11/21 10:02 DL Document 06/18/21 10:29 BMF [id number] 06/18/21 10:38 BMF Document 06/25/21 10:57 MW [id number] 06/25/21 11:01 MW 06/11/21 06/18/21 06/25/21 09:57 10:29 10:57 WC - Today's Visit Information Type of service Follow-up Visit Follow-up Visit Follow-up Visit (Physician/NON DESTRUCTIVE TESTING SPECIALIST (Physician/NON DESTRUCTIVE TESTING SPECIALIST (Physician/NON DESTRUCTIVE TESTING SPECIALIST ) ) ) Arrival Mode Ambulatory, Ambulatory, Ambulatory Walker Crutches Transfer Assistance None None None Accompanied by Patient Identification Verified (Name & Yes Yes Yes ) Patient Requires Transmission-Based No No No Precautions Finger Stick Blood Sugar(mg/dl) (if not checked indicated): Blood Sugar Stated by Patient Height and Weight Body Mass Index (BMI) 35.6 35.6 35.6 BMI Classification Obese Obese Obese Vital Signs Temperature (97.8 F-99.1 F) 98.2 F 98 F 97.5 F L Temperature Source Temporal Temporal Temporal Pulse Rate (60-100) 89 94 87 Pulse Location Monitor Monitor Monitor Respiratory Rate (12-18) 22 H 18 16 Respiratory rate source Observation Observation Observation Oxygen Delivery Method Room Air Room Air Blood Pressure (90/60-120/80) 111/64 123/71 H 115/65 Blood Pressure Mean (mm Hg) 79 88 81 Source Monitor Monitor Monitor Position Sitting Sitting Blood Pressure Location Right Arm Left Arm History Since Last Visit- (Skip if this is Patient's initial visit) Have you changed medications since your No No No last visit? Any new allergies or adverse reactions No No No Had a fall/change in ADL's that may No No increase risk of falls Signs or symptoms of abuse and/or No No No neglect since last visit Have you been in the hospital since your No No No last visit? Has dressing in place as prescribed Yes Yes Yes Has compression in place as prescribed N/A Yes Yes Has offloadiing in place as prescribed Yes Yes Yes Experienced any changes in pain level or No No management Left Footwear Slipper Surgical Shoe Surgical Shoe with pressure with pressure relief insole relief insole Right Footwear Regular Shoe Regular Shoe Regular Shoe Pain Scale: 0-10 Numeric Is Patient Pain Free? Yes Yes WC - Nurse 1 - General Ulcer Measurement Start: 06/11/21 09:57 Freq: Status: Active Protocol: Activity Type Activity Date Activity User E-Sign Co-Sign Detail Recorded Client Recorded Date Recorded By Document 06/11/21 09:57 DL Desktop 06/11/21 10:02 DL Document 06/18/21 10:29 BMF [id number] 06/18/21 10:38 BMF Document 06/25/21 10:57 MW [id number] 06/25/21 11:01 MW 06/11/21 06/18/21 06/25/21 09:57 10:29 10:57 Wound Center Nurse 1 #1 Left Lat Foot Post Op -Combined with other wound No -Current Size (cm) - Length 5 5.4 5.0 -Current Size (cm) - Width 2.8 2.3 2.3 -Current Size (cm) - Depth 0.1 0.5 0.1 -Total Square Cm 14.0 12.42 11.50 -Photo Taken No No -Epithelialization Small 1-33% -Tunneling No -Undermining/Tunneling No -Circular Undermining No -Exudate Amt Medium Medium Medium -Exudate Type Serosanguineous Serosanguineous Serosanguineous -Wound Margin Distinct, Distinct, Flat & Intact Outline Outline Attached Attached -Granulation Amt Large (67-100%) Medium (34-66%) Large (67-100%) -Granulation Quality Red Red [place] -Slough/Fibrin Yes -Necrosis Amt Small (1-33%) Medium (34-66%) Small (1-33%) -Necrotic Tissue Type Adherent Slough Adherent Slough Adherent Slough -Structure Exposed N/A N/A -Texture (Anna-wound Skin Appearance) Scarring Assessed, No Abnormality, Scarring Localized Edema ,Scarring -Moisture (Anna-wound Skin Appearance) Maceration Assessed, Assessed, Maceration Maceration -Color (Anna-wound Skin Appearance) Assessed No Abnormality, No Abnormality, Assessed Assessed -Temperature (Anna-wound Skin No Abnormality No Abnormality No Abnormality Appearance) (Pt Warm) (Pt Warm) (Pt Warm) -Tenderness on Palpation (Anna-wound No No No Skin Appearance) -Ulcer Cleansing Wound Cleanser soap and water soap and water -Foul Odor after Cleansing No No No -Anesthetic Used 4% Lidocaine 4% Lidocaine 4% Lidocaine Solution Solution Solution Lower Limb Edema Present No WC - Nurse 2 - General Ulcer CM Notes Start: 06/11/21 09:57 Freq: Status: Active Protocol: Activity Type Activity Date Activity User E-Sign Co-Sign Detail Recorded Client Recorded Date Recorded By Document 06/11/21 10:09 JF [id number] 06/11/21 10:15 JF Document 06/18/21 11:05 JF [id number] 06/18/21 11:11 JF Edit Result 06/18/21 11:05 JF (1) [id number] 06/19/21 13:36 PL Document 06/25/21 11:02 JF [id number] 06/25/21 11:10 JF (1) #1 Left Lat Foot Post Op - Apply Skin Sub - 1st 25 sq cm - Feet => 1 - Apply Skin Sub - each addt'l 25 sq cm 1 => - Feet 06/11/21 06/18/21 06/25/21 10:09 11:05 11:02 Wound Center Nurse 2 #1 Left Lat Foot Post Op -Time 10:13 11:08 11:03 -Correct Patient Yes Yes Yes -Correct Side, Site, Position Yes Yes Yes -Correct Procedure Yes Yes Yes -Procedure Performed Yes Yes Yes -Type of Procedure Debridement Debridement Debridement -Clinical Debridement Subcutaneous Subcutaneous Subcutaneous -Tissue Removed Subcutaneous Subcutaneous Subcutaneous -Post Debridement (cm) - Length 4.8 5.4 2.5 -Post Debridement (cm) - Width 2.6 2.5 4.5 -Post Debridement (cm) - Depth 0.1 0.2 0.1 -Total Square (Post) (cm) 12.48 13.50 11.25 -Area of Debridement (cm) - Length 4.8 5.4 2.5 -Area of Debridement (cm) - Width 2.6 2.5 4.5 -Total Square (Area) (cm) 12.48 13.50 11.25 -Tunneling No No No -Undermining/Tunneling No No No -Circular Undermining No No No -Wound/Ulcer Outcome Not Healed Not Healed Not Healed -Ulcer Cleansing Rinsed/ Rinsed/ Rinsed/ Irrigated with Irrigated with Irrigated with Saline Saline Saline -Foul Odor after Cleansing No No No -Bioengineered Tissue Yes Yes Yes -Type of Bioengineered Tissue Epifix Mesh Epifix Mesh Epifix Mesh -Expiration Date 03/02/26 03/02/26 01/31/26 -Product Lot Number [id number] -Percent Used 100 100 100 -Lot number of Saline Used [id number] -Bleeding Controlled with Pressure Pressure Pressure -Offloading Yes Yes Yes -Type of Offloading Surgical Shoe Surgical Shoe Surgical Shoe -Treatment Response Procedure Procedure Procedure Tolerated Well Tolerated Well Tolerated Well -Debridement - Subq, 1st 20sq cm No No No -Apply Skin Sub - 1st 25 sq cm - Feet 1 1 1 -Epifix Mesh (per sq cm) 11 11 11 Pain Scale: 0-10 Numeric Is Patient Pain Free? Yes Yes Yes - Nurse 3 - General Ulcer D/C NN Start: 06/11/21 09:57 Freq: Status: Active Protocol: Activity Type Activity Date Activity User E-Sign Co-Sign Detail Recorded Client Recorded Date Recorded By Document 06/11/21 10:15 [id number] 06/11/21 10:16 Document 06/18/21 11:16 [id number] 06/18/21 11:17 Document 06/25/21 11:21 MW [id number] 06/25/21 11:22 MW 06/11/21 06/18/21 06/25/21 10:15 11:16 11:21 Wound Care Nurse 3 #1 Left Lat Foot Post Op -Ulcer Cleansing Rinsed/ Rinsed/ Not Cleansed Irrigated with Irrigated with Saline Saline -Foul Odor after Cleansing No No No -Negative Pressure Wound Therapy N/A -Primary Dressing Covered/Secured with Dry Gauze & Dry Gauze & Dry Gauze & Roll Gauze, Roll Gauze, Roll Gauze, Secured with Secured with Secured with Tape Tape Tape -Other Covering abd pad Left -Lotion applied to leg before No compression wrap -Compression Wrap Gavin Wrap Gavin Wrap Gavin Wrap Pain Scale: 0-10 Numeric Is Patient Pain Free? Yes Yes Yes Teaching: Wound Center Dressing Your Wound -Person Taught Patient,Family -Teaching Method Discussion -Response to teaching Verbalize understanding WC - Visit Discharge Discharge Condition Stable Stable Stable Ambulatory Status Ambulatory Ambulatory, Ambulatory Crutches Transportation Private Auto Private Auto Private Auto Accompanied by Medication Reconcilliation completed & Yes Yes No provided to patient/care provider Clinical Summary of Care Provided Yes Yes Yes Wound debrided: Lateral foot Laterality: Left Wound Grade/Stage: Senior 1 Type of Debridement: Excisional debridement Anesthesia Used: 4% Lidocaine Solution Depth: in the subcutaneous layer Percentage of wound debrided: 100 Instrument Used: 3mm curette Tissue Removed: includes fibrous, devitalized, biofilm, callus and slough tissue Severity: Fat Layer Exposed Amount of bleeding with debridement: Mild Bleeding Controlled with: Pressure Patient tolerated procedure: Patient tolerated procedure well Assessment/Plan Assessment/Plan (1) Non-pressure chronic ulcer of other part of left foot with necrosis of muscle: CODE(S): L97.523 - Non-pressure chronic ulcer of other part of left foot with necrosis of muscle (2) Necrotizing fasciitis: CODE(S): M72.6 - Necrotizing fasciitis (3) Diabetes mellitus, type 2: CODE(S): E11.9 - Type 2 diabetes mellitus without complications QUALIFIERS: Diabetes mellitus long winder tender insulin use: without long winder tender use Diabetes mellitus complication status: with neurologic complications Diabetes mellitus complication detail: with polyneuropathy Qualified Code(s): E11.42 - Type 2 diabetes mellitus with diabetic polyneuropathy PLAN: Patient seen and examined with present. Wound looks healthy in appearance. Patient relates that he is going on vacation to [place] and will not be able to make appointment next week discussed switching to fibracol after this week of leaving the epi mesh intact with only changing the outer dressing. Reviewed proper wound care. Patient relates he has adequate wound care supplies. All questions answered. Wound is improved with more granulation tissue noted. Patient is noted to have offloaded surgical shoe and wheelchair or crutches for offloading patient reports no systemic signs of illness at this time. Patient is a follow-up from the hospital after debridement from a gas gangrene infection. Wound was operated down to level of subcu but infection did not violate the bone. Patient did not undergo an amputation. There is a large deficits to the lateral aspect of his fifth metatarsal. OR cultures were noted to be positive for Proteus vulgaris, Enterococcus faecalis, Staphylococcus aureus, anaerobic cocci. Patient is also noted to have vascular studies done on 04/29/2021 demonstrating triphasic waveforms to PT and DP bilaterally with mild degree of large vessel disease despite noncompressible vessels. Right TBI was 0.78 and left TBI was 0.47 possibly consistent with small vessel disease. After verbal consent was obtained ulceration was debrided sharply Discussed importance of smoking cessation, blood sugar control, weight management, offloading, proper nutrition, infection control and hygiene to optimize healing potential. Patient hemoglobin A1c was 9.5% on 04/28/2021. Patient relates that he is currently in the 300s and has gotten sick when he got below 200 before. Discussed follow-up with primary care provider in order to have better control over his blood sugar. Discussed that this is impacting his healing. Offered referral for stockroom associate. Patient relates that he has been to multiple of them in the past and has no desire to go back to another one. Patient was approved for epi fix graft application I recommend application of advanced wound healing product to the indicated ulceration. Prior authorization was confirmed. The indications, benefits, anticipated application and healing time management were reviewed in detail. Verbal consent was obtained in the procedure for today. Site was debrided and graft was applied according to standard protocol and was further secured with a nonadherent dressing and Steri-Strips. Patient instructed that they can change outer dressing but not to go beneath the Steri-Strips. All questions answered Patient is to follow-up in 2 week This note was generated with [employer] dictation software. It may contain incorrect words, spelling, and punctuation that were not noted in checking the note before signing.
== END 2021-07-02 23:59 ==
LOC: WC 10:15
PROVIDERS: PCP Physician Assistant Medical; Referring Provider Hospitalist; Visit Provider Podiatrist Foot & Ankle Surgery
DX: E11.621 Type 2 diabetes mellitus with foot ulcer (principal); L97.522 Non-pressure chronic ulcer of other part of left foot with fat layer exposed; I10 Essential (primary) hypertension; I25.10 Atherosclerotic heart disease of native coronary artery without angina pectoris; A48.0 Gas gangrene; E11.52 Type 2 diabetes mellitus with diabetic peripheral angiopathy with gangrene; M72.6 Necrotizing fasciitis; E11.42 Type 2 diabetes mellitus with diabetic polyneuropathy
CPT/HCPCS: 15275; 15276; Q4186

== ENCOUNTER 2021-07-30 11:15 | Outpatient (RCR) | payer BC, MEDICAID, SELFPAY ==
[2021-07-03 00:20] VITALS: BP 115/65; PULSE 87; RESP 16; TEMP 36.4; BMI 35.6
[2021-07-09 10:53] VITALS: BP 127/67; PULSE 90; TEMP 36.2; BMI 35.6
--- NOTE | 2021-07-09 11:21 | PN.PCM_ITS ---
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 Patient has significant medical history including diabetes, hypertension, coronary artery disease, anemia, aortic martinez artery bypass grafting. 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 Patient underwent surgical debridement of the wound with Dr. Gerber on 04/28/2021. There is noted to be a large deficit due to the severity of his infection. Patient was started on wound VAC therapy while in the hospital and was discharged with this. Patient was also discharged with infectious disease recommendations including Ladi etienne. It was noted that patient is not able to find a home health care company that would take him. Is discussed that his be trained between personnel at the hospital my office and wound care center to change the wound VAC and to contact us if there is any questions or concerns. Patient reports to the wound care center for continued care. Patient has finished wound VAC therapy. He has been approved for epi fix grafting. Progress of Wound: Improved but with new blistered area Subjective Subjective Patient seen and examined resting comfortably. Patient denies any new pedal complaints. Patient denies any nausea, fever, chills, chest pain, shortness of breath, cough, streaking, purulence, vomiting. Patient relates new blistered area to the dorsal distal aspect of the ulceration sites which he relates has been draining clear and bloody fluid he denies any other signs of infection Objective Data Objective Data Vital Signs: Vital Signs Temp Pulse Resp BP 97.1 F L 90 16 127/67 H 07/09/21 10:53 07/09/21 10:53 07/03/21 00:20 07/09/21 10:53 Weight: 122.47 kg Body Mass Index (BMI) 35.6 Physical Exam Narrative Skin Wound Narrative: ulcers noted to left lateral foot down to the level of fascia No malodor, purulence, probing to bone, streaking, fluctuation, crepitus, or other signs of infection. Skin is atrophic and hairless. Granulation tissue noted. No signs of infection noted. There is increase in skin island formation with decrease in overall size of the ulcer noted. There is new wound area noted to dorsal distal aspect of ulceration that probes to the level of fat without any purulence expressed. There is serosanguineous drainage expressed. Does not appear to be infected without any surrounding erythema or edema. Possibly caused by friction. Edema noted to the left lower extremity VASC Pulses are palpable 2 out of 4. Capillary refill time is less than 2 seconds to digits. MSK Muscle strength 5 out of 5 for all pedal groups. NEURO Minor decrease in epicritic sensation noted. Patient also noted to be hypersensitive which is easily tickled especially to plantar foot. Debridement Note Debridement Note Wound debrided: Lateral foot Laterality: Left Wound Grade/Stage: Senior 1 Type of Debridement: Excisional debridement Anesthesia Used: 4% Lidocaine Solution Depth: in the subcutaneous layer Percentage of wound debrided: 100 Instrument Used: 3mm curette Tissue Removed: includes fibrous, devitalized, biofilm, callus and slough tissue Severity: Fat Layer Exposed Amount of bleeding with debridement: Mild Bleeding Controlled with: Pressure Patient tolerated procedure: Patient tolerated procedure well Post-Debridement Measurements and Additional Note: Post-Debridement Measurements/Treatment MARISSA - Nurse 1 - General Ulcer Assessment Start: 07/09/21 10:32 Freq: Status: Active Protocol: MARILYN Activity Type Activity Date Activity User E-Sign Co-Sign Detail Recorded Client Recorded Date Recorded By Document 07/09/21 10:53 RADHA [id number] 07/09/21 10:55 RADHA 07/09/21 10:53 - Today's Visit Information Type of service Follow-up Visit (Physician/DOLPHIN TRAINER ) Arrival Mode Ambulatory Patient Identification Verified (Name & Yes ) Patient Requires Transmission-Based No Precautions Safety Precautions NA Height and Weight Body Mass Index (BMI) 35.6 BMI Classification Obese Vital Signs Temperature (97.8 F-99.1 F) 97.1 F L Temperature Source Temporal Pulse Rate (60-100) 90 Pulse Location Monitor Blood Pressure (90/60-120/80) 127/67 H Blood Pressure Mean (mm Hg) 87 Source Monitor History Since Last Visit- (Skip if this is Patient's initial visit) Have you changed medications since your No last visit? Any new allergies or adverse reactions No Had a fall/change in ADL's that may No increase risk of falls Signs or symptoms of abuse and/or No neglect since last visit Have you been in the hospital since your No last visit? Has dressing in place as prescribed Yes Has compression in place as prescribed Yes Has offloadiing in place as prescribed N/A Experienced any changes in pain level or No management Left Footwear Regular Shoe Right Footwear Surgical Shoe with pressure relief insole WC - Nurse 1 - General Ulcer Measurement Start: 07/09/21 10:32 Freq: Status: Active Protocol: Activity Type Activity Date Activity User E-Sign Co-Sign Detail Recorded Client Recorded Date Recorded By Document 07/09/21 10:53 AK [id number] 07/09/21 10:55 AK 07/09/21 10:53 Wound Center Nurse 1 #1 Left Lat Foot Post Op -Current Size (cm) - Length 5 -Current Size (cm) - Width 3.8 -Current Size (cm) - Depth 0.1 -Total Square Cm 19.0 -Photo Taken No -Tunneling No -Undermining/Tunneling No -Circular Undermining No -Change in Wound Grade/Stage No -Exudate Amt Large -Exudate Type Serosanguineous -Wound Margin Distinct, Outline Attached -Necrosis Amt Large (67-100%) -Necrotic Tissue Type Adherent Slough -Structure Exposed N/A -Texture (Anna-wound Skin Appearance) No Abnormality, Assessed -Moisture (Anna-wound Skin Appearance) No Abnormality, Assessed -Color (Anna-wound Skin Appearance) No Abnormality, Assessed -Temperature (Anna-wound Skin No Abnormality Appearance) (Pt Warm) -Tenderness on Palpation (Anna-wound Yes Skin Appearance) -Ulcer Cleansing Rinsed/ Irrigated with Saline -Foul Odor after Cleansing No -Anesthetic Used 5% Lidocaine Gel Lower Limb Edema Present No WC - Nurse 2 - General Ulcer CM Notes Start: 07/09/21 10:32 Freq: Status: Active Protocol: Activity Type Activity Date Activity User E-Sign Co-Sign Detail Recorded Client Recorded Date Recorded By Document 07/09/21 10:33 MW [id number] 07/09/21 10:39 MW 07/09/21 10:33 Wound Center Nurse 2 #1 Left Lat Foot Post Op -Time 10:33 -Correct Patient Yes -Correct Side, Site, Position Yes -Correct Procedure Yes -Procedure Performed Yes -Type of Procedure Debridement -Clinical Debridement Subcutaneous -Tissue Removed Subcutaneous -Post Debridement (cm) - Length 5.1 -Post Debridement (cm) - Width 1.1 -Post Debridement (cm) - Depth 0.1 -Total Square (Post) (cm) 5.61 -Area of Debridement (cm) - Length 5.1 -Area of Debridement (cm) - Width 1.1 -Total Square (Area) (cm) 5.61 -Tunneling No -Undermining/Tunneling No -Circular Undermining No -Wound/Ulcer Outcome Not Healed -Ulcer Cleansing Rinsed/ Irrigated with Saline -Foul Odor after Cleansing No -Bioengineered Tissue Yes -Type of Bioengineered Tissue Epifix -Expiration Date 01/31/26 -Product Lot Number [id number] -Percent Used 100 -Lot number of Saline Used [id number] -Bleeding Controlled with Pressure -Offloading No -Treatment Response Procedure Tolerated Well -Debridement - Subq, 1st 20sq cm No -Apply Skin Sub - 1st 25 sq cm - Feet 1 -Epifix (per sq cm) 4 Pain Scale: 0-10 Numeric Is Patient Pain Free? Yes - Nurse 3 - General Ulcer D/C NN Start: 07/09/21 10:32 Freq: Status: Active Protocol: Activity Type Activity Date Activity User E-Sign Co-Sign Detail Recorded Client Recorded Date Recorded By Document 07/09/21 10:45 [facility] [id number] 07/09/21 10:46 [facility] 07/09/21 10:45 Wound Care Nurse 3 #1 Left Lat Foot Post Op -Other Dressing epifix -Primary Dressing Covered/Secured with Dry Gauze & Roll Gauze, Secured with Tape -Other Covering drsg per ak sales ledger clerk Treatment Response Procedure Tolerated Well WC - Visit Discharge Discharge Condition Stable Ambulatory Status Ambulatory Transportation Private Auto Accompanied by Assessment/Plan Assessment/Plan (1) Non-pressure chronic ulcer of other part of left foot with necrosis of muscle: CODE(S): L97.523 - Non-pressure chronic ulcer of other part of left foot with necrosis of muscle (2) Diabetes mellitus, type 2: CODE(S): E11.9 - Type 2 diabetes mellitus without complications QUALIFIERS: Diabetes mellitus terminal system operator insulin use: without [facility] use Diabetes mellitus complication status: with neurologic complications Diabetes mellitus complication detail: with polyneuropathy Qualified Code(s): E11.42 - Type 2 diabetes mellitus with diabetic polyneuropathy (3) Obesity: CODE(S): E66.9 - Obesity, unspecified PLAN: Patient seen and examined with present. Wound looks healthy in appearance and has shrunk in size with more skin island noted. Patient relates that he has had a blister to the top of his foot that showed up several days ago he has got blood and clear drainage out of it denies any pus until today when nurse took off bandage. No further purulent drainage expressed by myself. Does not seem to be clinically infected. Does not probe deep. Discussed possibility of this being from friction especially given that he was just on vacation. Wound is improved with more granulation tissue noted. Patient is noted to have offloaded surgical shoe and wheelchair or crutches for offloading patient reports no systemic signs of illness at this time. Patient is also noted to have vascular studies done on 04/29/2021 demonstrating triphasic waveforms to PT and DP bilaterally with mild degree of large vessel disease despite noncompressible vessels. Right TBI was 0.78 and left TBI was 0.47 possibly consistent with small vessel disease. After verbal consent was obtained ulceration was debrided sharply Discussed importance of smoking cessation, blood sugar control, weight management, offloading, proper nutrition, infection control and hygiene to optimize healing potential. Patient hemoglobin A1c was 9.5% on 04/28/2021. Discussed follow-up with primary care provider or travel cota in order to have better control over his blood sugar. Discussed that this is impacting his healing. Patient was approved for epi fix graft application I recommend application of advanced wound healing product to the indicated ulceration. Prior authorization was confirmed. The indications, benefits, anticipated application and healing time management were reviewed in detail. Verbal consent was obtained in the procedure for today. Site was debrided and graft was applied according to standard protocol and was further secured with a nonadherent dressing and Steri-Strips. Patient instructed that they can change outer dressing but not to go beneath the Steri-Strips. All questions answered. Reviewed concerning signs and symptoms to watch out for and to contact office if any of these present or go to the emergency room. Patient is to follow-up in 1 week This note was generated with [employer] dictation software. It may contain incorrect words, spelling, and punctuation that were not noted in checking the note before signing.
[2021-07-16 11:12] VITALS: BP 122/72; PULSE 85; RESP 16; TEMP 36.8; BMI 35.6
--- NOTE | 2021-07-16 11:43 | PCM.WC.PN ---
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 Patient has significant medical history including diabetes, hypertension, coronary artery disease, anemia, aortic martinez artery bypass grafting. 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 Patient underwent surgical debridement of the wound with Dr. Gerber on 04/28/2021. There is noted to be a large deficit due to the severity of his infection. Patient was started on wound VAC therapy while in the hospital and was discharged with this. Patient was also discharged with infectious disease recommendations including Augmentin. It was noted that patient is not able to find a home health care company that would take him. Is discussed that his be trained between personnel at the hospital my office and wound care center to change the wound VAC and to contact us if there is any questions or concerns. Patient reports to the wound care center for continued care. Patient has finished wound VAC therapy. He has been approved for epi fix grafting. 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 Patient denies any new pedal complaints. Patient denies any nausea, fever, chills, chest pain, shortness of breath, cough, streaking, purulence, vomiting. 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 Skin is atrophic and hairless. Granulation tissue noted. No signs of infection noted. There is increase in skin island formation with decrease in overall size of the ulcer noted. wound area noted to dorsal distal aspect of ulceration that probes less than last week to the level of fat without any purulence expressed. There is sanguineous drainage expressed. Does not appear to be infected without any surrounding erythema or edema. Edema noted to the left lower extremity, mild VASC Pulses are palpable 2 out of 4. Capillary refill time is less than 2 seconds to digits. MSK Muscle strength 5 out of 5 for all pedal groups. NEURO Minor decrease in epicritic sensation noted. Patient also noted to be hypersensitive which is easily tickled especially to plantar foot. Debridement Note Debridement Note Wound debrided: Lateral left foot Laterality: Left Wound Grade/Stage: Senior 1 Type of Debridement: Excisional debridement Anesthesia Used: 4% Lidocaine Solution Depth: in the subcutaneous layer Percentage of wound debrided: 100 Instrument Used: 3mm curette Tissue Removed: includes fibrous, devitalized, biofilm, callus and slough tissue Severity: Fat Layer Exposed Amount of bleeding with debridement: Mild Bleeding Controlled with: Pressure Patient tolerated procedure: Patient tolerated procedure well Post-Debridement Measurements and Additional Note: Post-Debridement Measurements/Treatment - Nurse 1 - General Ulcer Assessment Start: 07/09/21 10:32 Freq: Status: Active Protocol: .LOWEXT Activity Type Activity Date Activity User E-Sign Co-Sign Detail Recorded Client Recorded Date Recorded By Document 07/09/21 10:53 RI [id number] 07/09/21 10:55 AK Document 07/16/21 11:12 MW Desktop 07/16/21 11:18 MW 07/09/21 07/16/21 10:53 11:12 - Today's Visit Information Type of service Follow-up Visit Follow-up Visit (Physician/PARKING METER COLLECTOR (Physician/PARKING METER COLLECTOR ) ) Arrival Mode Ambulatory Ambulatory Transfer Assistance None Accompanied by Patient Identification Verified (Name & Yes Yes ) Patient Requires Transmission-Based No No Precautions Safety Precautions NA Height and Weight Body Mass Index (BMI) 35.6 35.6 BMI Classification Obese Obese Vital Signs Temperature (97.8 F-99.1 F) 97.1 F L 98.3 F Temperature Source Temporal Temporal Pulse Rate (60-100) 90 85 Pulse Location Monitor Monitor Respiratory Rate (12-18) 16 Respiratory rate source Observation Oxygen Delivery Method Room Air Blood Pressure (90/60-120/80) 127/67 H 122/72 H Blood Pressure Mean (mm Hg) 87 88 Source Monitor Monitor Position Sitting Blood Pressure Location Left Arm History Since Last Visit- (Skip if this is Patient's initial visit) Have you changed medications since your No No last visit? Any new allergies or adverse reactions No No Had a fall/change in ADL's that may No No increase risk of falls Signs or symptoms of abuse and/or No No neglect since last visit Have you been in the hospital since your No No last visit? Has dressing in place as prescribed Yes Yes Has compression in place as prescribed Yes Yes Has offloadiing in place as prescribed N/A N/A Experienced any changes in pain level or No No management Left Footwear Regular Shoe Surgical Shoe with pressure relief insole Right Footwear Surgical Shoe Regular Shoe with pressure relief insole Pain Scale: 0-10 Numeric Is Patient Pain Free? Yes WC - Nurse 1 - General Ulcer Measurement Start: 07/09/21 10:32 Freq: Status: Active Protocol: Activity Type Activity Date Activity User E-Sign Co-Sign Detail Recorded Client Recorded Date Recorded By Document 07/09/21 10:53 AK [id number] 07/09/21 10:55 AK Document 07/16/21 11:12 MW Desktop 07/16/21 11:18 MW 07/09/21 07/16/21 10:53 11:12 Wound Center Nurse 1 #1 Left Lat Foot Post Op -Combined with other wound No -Current Size (cm) - Length 5 5.2 -Current Size (cm) - Width 3.8 2.3 -Current Size (cm) - Depth 0.1 0.1 -Total Square Cm 19.0 11.96 -Photo Taken No No -Epithelialization Small 1-33% -Tunneling No No -Undermining/Tunneling No No -Circular Undermining No No -Change in Wound Grade/Stage No -Exudate Amt Large Medium -Exudate Type Serosanguineous Serosanguineous -Wound Margin Distinct, Flat & Intact Outline Attached -Granulation Amt Large (67-100%) -Granulation Quality [place] -Slough/Fibrin Yes -Necrosis Amt Large (67-100%) Small (1-33%) -Necrotic Tissue Type Adherent Slough Adherent Slough -Structure Exposed N/A N/A -Texture (Anna-wound Skin Appearance) No Abnormality, Assessed, Assessed Scarring -Moisture (Anna-wound Skin Appearance) No Abnormality, Assessed, Assessed Maceration -Color (Anna-wound Skin Appearance) No Abnormality, No Abnormality, Assessed Assessed -Temperature (Anna-wound Skin No Abnormality No Abnormality Appearance) (Pt Warm) (Pt Warm) -Tenderness on Palpation (Anna-wound Yes Yes Skin Appearance) -Ulcer Cleansing Rinsed/ soap and water Irrigated with Saline -Foul Odor after Cleansing No No -Anesthetic Used 5% Lidocaine 4% Lidocaine Gel Solution Lower Limb Edema Present No No WC - Nurse 2 - General Ulcer CM Notes Start: 07/09/21 10:32 Freq: Status: Active Protocol: Activity Type Activity Date Activity User E-Sign Co-Sign Detail Recorded Client Recorded Date Recorded By Document 07/09/21 10:33 MW [id number] 07/09/21 10:39 MW Document 07/16/21 11:33 JF [id number] 07/16/21 11:38 JF 07/09/21 07/16/21 10:33 11:33 Wound Center Nurse 2 #1 Left Lat Foot Post Op -Time 10:33 11:33 -Correct Patient Yes Yes -Correct Side, Site, Position Yes Yes -Correct Procedure Yes Yes -Procedure Performed Yes Yes -Type of Procedure Debridement Debridement -Clinical Debridement Subcutaneous Subcutaneous -Tissue Removed Subcutaneous Subcutaneous -Post Debridement (cm) - Length 5.1 5 -Post Debridement (cm) - Width 1.1 1.6 -Post Debridement (cm) - Depth 0.1 0.1 -Total Square (Post) (cm) 5.61 8.0 -Area of Debridement (cm) - Length 5.1 5 -Area of Debridement (cm) - Width 1.1 1.6 -Total Square (Area) (cm) 5.61 8.0 -Tunneling No No -Undermining/Tunneling No No -Circular Undermining No No -Wound/Ulcer Outcome Not Healed Not Healed -Ulcer Cleansing Rinsed/ Rinsed/ Irrigated with Irrigated with Saline Saline -Foul Odor after Cleansing No No -Bioengineered Tissue Yes Yes -Type of Bioengineered Tissue Epifix Epifix -Expiration Date 01/31/26 01/31/26 -Product Lot Number [id number] -Percent Used 100 100 -Lot number of Saline Used [id number] -Bleeding Controlled with Pressure Pressure -Offloading No Yes -Type of Offloading Surgical Shoe -Treatment Response Procedure Procedure Tolerated Well Tolerated Well -Debridement - Subq, 1st 20sq cm No No -Apply Skin Sub - 1st 25 sq cm - Feet 1 1 -Epifix (per sq cm) 4 4 Pain Scale: 0-10 Numeric Is Patient Pain Free? Yes Yes WC - Nurse 3 - General Ulcer D/C NN Start: 07/09/21 10:32 Freq: Status: Active Protocol: Activity Type Activity Date Activity User E-Sign Co-Sign Detail Recorded Client Recorded Date Recorded By Document 07/09/21 10:45 [facility] [id number] 07/09/21 10:46 [facility] 07/09/21 10:45 Wound Care Nurse 3 #1 Left Lat Foot Post Op -Other Dressing epifix -Primary Dressing Covered/Secured with Dry Gauze & Roll Gauze, Secured with Tape -Other Covering drsg per ak supervisor drying and winding Treatment Response Procedure Tolerated Well WC - Visit Discharge Discharge Condition Stable Ambulatory Status Ambulatory Transportation Private Auto Accompanied by Assessment/Plan Assessment/Plan (1) Non-pressure chronic ulcer of other part of left foot with necrosis of muscle: CODE(S): L97.523 - Non-pressure chronic ulcer of other part of left foot with necrosis of muscle (2) Diabetes mellitus, type 2: CODE(S): E11.9 - Type 2 diabetes mellitus without complications QUALIFIERS: Diabetes mellitus warehouse man insulin use: without warehouse man use Diabetes mellitus complication status: with neurologic complications Diabetes mellitus complication detail: with polyneuropathy Qualified Code(s): E11.42 - Type 2 diabetes mellitus with diabetic polyneuropathy (3) Obesity: CODE(S): E66.9 - Obesity, unspecified PLAN: Patient seen and examined with present. Wound looks healthy in appearance and has shrunk in size with more skin island noted. Patient relates that blistered area is still draining. Is not as deep as it was previously and no purulence was expressed today. 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 Wound is improved with more granulation tissue noted. Patient is noted to have offloaded surgical shoe and wheelchair or crutches for offloading patient reports no systemic signs of illness at this time. Patient is also noted to have vascular studies done on 04/29/2021 demonstrating triphasic waveforms to PT and DP bilaterally with mild degree of large vessel disease despite noncompressible vessels. Right TBI was 0.78 and left TBI was 0.47 possibly consistent with small vessel disease. After verbal consent was obtained ulceration was debrided sharply Discussed importance of smoking cessation, blood sugar control, weight management, offloading, proper nutrition, infection control and hygiene to optimize healing potential. Patient hemoglobin A1c was 9.5% on 04/28/2021. Discussed follow-up with primary care provider or cmm operator in order to have better control over his blood sugar. Discussed that this is impacting his healing. Patient was approved for epi fix graft application I recommend application of advanced wound healing product to the indicated ulceration. Prior authorization was confirmed. The indications, benefits, anticipated application and healing time management were reviewed in detail. Verbal consent was obtained in the procedure for today. Site was debrided and graft was applied according to standard protocol and was further secured with a nonadherent dressing and Steri-Strips. Patient instructed that they can change outer dressing but not to go beneath the Steri-Strips. Tubigrip was applied. 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 All questions answered. Reviewed concerning signs and symptoms to watch out for and to contact office if any of these present or go to the emergency room. Paperwork was filled out for insurance claim per patient request Patient is to follow-up in 1 week This note was generated with [employer] dictation software. It may contain incorrect words, spelling, and punctuation that were not noted in checking the note before signing.
--- NOTE | 2021-07-23 08:37 | PCM.WC.PN ---
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 Patient has significant medical history including diabetes, hypertension, coronary artery disease, anemia, aortic martinez artery bypass grafting. 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 Patient underwent surgical debridement of the wound with Dr. Gerber on 04/28/2021. There is noted to be a large deficit due to the severity of his infection. Patient was started on wound VAC therapy while in the hospital and was discharged with this. Patient was also discharged with infectious disease recommendations including Augmentin. It was noted that patient is not able to find a home health care company that would take him. Is discussed that his be trained between personnel at the hospital my office and wound care center to change the wound VAC and to contact us if there is any questions or concerns. Patient reports to the wound care center for continued care. Patient has finished wound VAC therapy. He has been approved for epi fix grafting. 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 Patient denies any new pedal complaints. Patient denies any nausea, fever, chills, chest pain, shortness of breath, cough, streaking, purulence, vomiting. Objective Data Objective Data Vital Signs: Vital Signs Temp Pulse Resp BP 98.3 F 85 16 122/72 H 07/16/21 11:12 07/16/21 11:12 07/16/21 11:12 07/16/21 11:12 Oxygen Delivery Method Room Air Weight: 122.47 kg Body Mass Index (BMI) 35.6 Physical Exam Narrative Skin Wound Narrative: ulcers noted to left lateral foot down to the level of fascia No malodor, purulence, probing to bone, streaking, fluctuation, crepitus, or other signs of infection. Skin is atrophic and hairless. Granulation tissue noted. No signs of infection noted. Proximal aspect of wound noted to have healed. Remaining wound is noted to have mild maceration periwound. New wound area noted to dorsal lateral foot with fluid buildup noted. Upon expression serosanguineous drainage expressed. This is to the level of tendon without any purulence expressed. Minimal signs of possible infection with minor surrounding erythema and edema. Most concerning is a continued amount of drainage and depth of the wound. Edema noted to the left lower extremity, mild Healed blistered areas noted where DryMax was placed last week. Patient notes that he had skin reaction to it which is still somewhat evidence. There is nothing open at this area at this time. VASC Pulses are palpable 2 out of 4. Capillary refill time is less than 2 seconds to digits. MSK Muscle strength 5 out of 5 for all pedal groups. NEURO Minor decrease in epicritic sensation noted. Patient also noted to be hypersensitive which is easily tickled especially to plantar foot. Debridement Note Debridement Note Wound debrided: Lateral foot Laterality: Left Wound Grade/Stage: Senior 1 Type of Debridement: Excisional debridement Anesthesia Used: 4% Lidocaine Solution Depth: in the subcutaneous layer Percentage of wound debrided: 100 Instrument Used: 3mm curette Tissue Removed: includes fibrous, devitalized, biofilm, callus and slough tissue Severity: Fat Layer Exposed Amount of bleeding with debridement: Moderate Bleeding Controlled with: Pressure and Silver Nitrate Patient tolerated procedure: Patient tolerated procedure well Post-Debridement Measurements and Additional Note: Wound Measurements and Assessment WC - Nurse 1 - General Ulcer Measurement Start: 07/09/21 10:32 Freq: Status: Active Protocol: Activity Type Activity Date Activity User E-Sign Co-Sign Detail Recorded Client Recorded Date Recorded By Document 07/23/21 11:10 [facility] [id number] 07/23/21 11:16 [facility] 07/23/21 11:10 Wound Center Nurse 1 [Ulcer Assessment] #1 Left Lat Foot Post Op -Combined with other wound No -Current Size (cm) - Length 1.8 -Current Size (cm) - Width 1 -Current Size (cm) - Depth 0.1 -Total Square Cm 1.8 -Photo Taken No -Epithelialization None Present -Tunneling No -Undermining/Tunneling No -Circular Undermining No -Exudate Amt Large -Exudate Type Serosanguineous -Wound Margin Distinct, Outline Attached -Granulation Amt Large (67-100%) -Granulation Quality Hyper- granulation, [place] -Slough/Fibrin Yes -Necrosis Amt Small (1-33%) -Necrotic Tissue Type Adherent Slough -Texture (Anna-wound Skin Appearance) Assessed, Localized Edema ,Scarring -Moisture (Anna-wound Skin Appearance Assessed, ) Maceration -Color (Anna-wound Skin Appearance) Assessed, Erythema,Palor -Temperature (Anna-wound Skin No Abnormality Appearance) (Pt Warm) -Tenderness on Palpation (Anna-wound No Skin Appearance) -Ulcer Cleansing Soap and Water -Foul Odor after Cleansing No -Anesthetic Used 4% Lidocaine Solution [Edema Assessment] -Lower Limb Edema Present Yes -Left Calf (cm) 46.6 -Left Ankle (cm) 31.5 WC - Nurse 2 - General Ulcer CM Notes Start: 07/09/21 10:32 Freq: Status: Active Protocol: Activity Type Activity Date Activity User E-Sign Co-Sign Detail Recorded Client Recorded Date Recorded By Document 07/23/21 11:27 [email or web address] [id number] 07/23/21 11:29 GABBI 07/23/21 11:27 Wound Center Nurse 2 [Procedure/Treatment] -Time 11:29 -Correct Patient Yes -Correct Side, Site, Position Yes -Correct Procedure Yes -Procedure Performed Yes -Type of Procedure Debridement -Clinical Debridement Subcutaneous -Tissue Removed Subcutaneous -Post Debridement (cm) - Length 0.2 -Post Debridement (cm) - Width 0.2 -Post Debridement (cm) - Depth 1.5 -Total Square (Post) (cm) 0.04 -Area of Debridement (cm) - Length 0.2 -Area of Debridement (cm) - Width 0.2 -Total Square (Area) (cm) 0.04 -Tunneling No -Undermining/Tunneling No -Circular Undermining No -Wound/Ulcer Outcome Not Healed -Ulcer Cleansing Rinsed/ Irrigated with Saline -Foul Odor after Cleansing No -Bioengineered Tissue No -Bleeding Controlled with Pressure,Silver Nitrate -Offloading Yes -Type of Offloading Surgical Shoe -Treatment Response Procedure Tolerated Well -Debridement - Subq, 1st 20sq cm Yes #1 Left Lat Foot Post Op -Time 11:28 -Correct Patient Yes -Correct Side, Site, Position Yes -Correct Procedure Yes -Procedure Performed Yes -Type of Procedure Debridement -Clinical Debridement Subcutaneous -Tissue Removed Subcutaneous -Post Debridement (cm) - Length 1 -Post Debridement (cm) - Width 1.4 -Post Debridement (cm) - Depth 0.1 -Total Square (Post) (cm) 1.4 -Area of Debridement (cm) - Length 1 -Area of Debridement (cm) - Width 1.4 -Total Square (Area) (cm) 1.4 -Tunneling No -Undermining/Tunneling No -Circular Undermining No -Wound/Ulcer Outcome Not Healed -Ulcer Cleansing Rinsed/ Irrigated with Saline -Foul Odor after Cleansing No -Bioengineered Tissue No -Bleeding Controlled with Pressure,Silver Nitrate -Offloading Yes -Type of Offloading Surgical Shoe -Treatment Response Procedure Tolerated Well -Debridement - Subq, 1st 20sq cm No [See Physician Procedure note for Specifics] Pain Scale: 0-10 Numeric [Pain] -Is Patient Pain Free? Yes - Nurse 3 - General Ulcer D/C NN Start: 07/09/21 10:32 Freq: Status: Active Protocol: Activity Type Activity Date Activity User E-Sign Co-Sign Detail Recorded Client Recorded Date Recorded By Document 07/23/21 11:39 [email or web address] [id number] 07/23/21 11:40 [email or web address] 07/23/21 11:39 Wound Care Nurse 3 [Wound Dressing] -Primary Dressing Applied Other -Other Dressing wet to dry -Primary Dressing Covered/Secured Dry Gauze, with Secured with Tape #1 Left Lat Foot Post Op -Ulcer Cleansing Rinsed/ Irrigated with Saline -Primary Dressing Applied Other -Other Dressing wet to dry -Primary Dressing Covered/Secured Dry Gauze,Dry with Gauze & Roll Gauze,Secured with Tape Pain Scale: 0-10 Numeric [Pain] -Is Patient Pain Free? Yes - Visit Discharge [Visit Discharge Information] -Discharge Condition Stable -Ambulatory Status Ambulatory -Transportation Private Auto -Accompanied by Additional Wound Wound debrided: Dorsal lateral foot Laterality: Left Wound Grade/Stage: Senior 2 Type of Debridement: Excisional debridement Anesthesia Used: 4% Lidocaine Solution Depth: to muscle Percentage of wound debrided: 100 Instrument Used: 3mm curette Tissue Removed: Includes fibrous, devitalized, biofilm, callus and slough tissue Severity: Necrosis of Muscle Amount of bleeding with debridement: Mild Bleeding Controlled with: Pressure Patient tolerated procedure: Patient tolerated procedure well Assessment/Plan Assessment/Plan (1) Non-pressure chronic ulcer of other part of left foot with necrosis of muscle: CODE(S): L97.523 - Non-pressure chronic ulcer of other part of left foot with necrosis of muscle (2) Diabetes mellitus, type 2: CODE(S): E11.9 - Type 2 diabetes mellitus without complications QUALIFIERS: Diabetes mellitus complication detail: with polyneuropathy Diabetes mellitus complication status: with neurologic complications Diabetes mellitus skilled nursing insulin use: without joint terminal attack controller use Qualified Code(s): E11.42 - Type 2 diabetes mellitus with diabetic polyneuropathy (3) Obesity: CODE(S): E66.9 - Obesity, unspecified (4) Ulcer of left foot with muscle involvement without evidence of necrosis: CODE(S): L97.525 - Non-pressure chronic ulcer of other part of left foot with muscle involvement without evidence of necrosis PLAN: Patient seen and examined with present. Wound looks healthy in appearance and has shrunk in size with proximal aspect of the ulceration healed. Patient relates that blistered area is still draining. It is deeper now today going down to the level of tendon. There is moderate amount of serosanguineous drainage expressed from it. There no good adequate drainage with increase in pressure buildup with expression of serous drainage. This was cultured. There is no purulence expressed. No concern for overt infection but will culture this to make sure. Discussed managing any potential bacterial infection with topical dressing options. Patient agreed. Discussed possible antibiotics if culture shows uncontrolled bacterial growth. We will start Dakin's wet to dry dressing changes. Wound is improved with more granulation tissue noted. Patient is noted to have offloaded surgical shoe and wheelchair or crutches for offloading patient reports no systemic signs of illness at this time. Patient is also noted to have vascular studies done on 04/29/2021 demonstrating triphasic waveforms to PT and DP bilaterally with mild degree of large vessel disease despite noncompressible vessels. Right TBI was 0.78 and left TBI was 0.47 possibly consistent with small vessel disease. After verbal consent was obtained ulceration was debrided sharply Discussed importance of smoking cessation, blood sugar control, weight management, offloading, proper nutrition, infection control and hygiene to optimize healing potential. Patient hemoglobin A1c was 9.5% on 04/28/2021. 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 Discussed that this is impacting his healing. Patient was approved for epi fix graft application. We will delayed graft application at this time. To start Dakin's wet-to-dry daily dressing changes Tubigrip was applied. 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 All questions answered. Reviewed concerning signs and symptoms to watch out for and to contact office if any of these present or go to the emergency room. Discussed if he goes from just getting serosanguineous drainage from new ulceration site to purulent drainage to call the office. Patient is to follow-up in 1 week This note was generated with [employer] dictation software. It may contain incorrect words, spelling, and punctuation that were not noted in checking the note before signing. The problems addressed require a low medical decision making level which includes two or more minor problems, a stable chronic illness, or an acute uncomplicated illness or injury.
[2021-07-23 11:10] VITALS: BP 164/85; PULSE 83; RESP 16; TEMP 36.2; BMI 35.6
[2021-07-23 15:29] LABS: M R Staph aureus DNA By PCR Negative (Negative); Probe Check PASS; Staph aureus DNA By PCR POSITIVE (Negative)
--- NOTE | 2021-07-30 09:24 | PCM.WC.PN ---
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 Patient has significant medical history including diabetes, hypertension, coronary artery disease, anemia, aortic martinez artery bypass grafting. 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 Patient underwent surgical debridement of the wound with Dr. Gerber on 04/28/2021. There is noted to be a large deficit due to the severity of his infection. Patient was started on wound VAC therapy while in the hospital and was discharged with this. Patient was also discharged with infectious disease recommendations including Augmentin. It was noted that patient is not able to find a home health care company that would take him. Is discussed that his be trained between personnel at the hospital my office and wound care center to change the wound VAC and to contact us if there is any questions or concerns. Patient reports to the wound care center for continued care. Patient has finished wound VAC therapy. He has been approved for epi fix grafting. 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 Patient denies any new pedal complaints. Patient denies any nausea, fever, chills, chest pain, shortness of breath, cough, streaking, purulence, vomiting. Patient reports no issues with antibiotic Objective Data Objective Data Vital Signs: Vital Signs Temp Pulse Resp BP 97.1 F L 83 16 164/85 H 07/23/21 11:10 07/23/21 11:10 07/23/21 11:10 07/23/21 11:10 Oxygen Delivery Method Room Air Weight: 122.47 kg Body Mass Index (BMI) 35.6 Lab / Micro Data Micro: Microbiology 07/23/21 11:22 Wound - Left Foot Gram Stain - Final 07/23/21 11:22 Wound - Left Foot Wound Culture - Final Staphylococcus aureus Strep anginosus Sphingomonas paucimobilis 07/23/21 11:22 Wound - Left Foot Anaerobic Culture - Final Anaerobic cocci Physical Exam Narrative Skin Wound Narrative: ulcers noted to left lateral foot down to the level of fascia No malodor, purulence, probing to bone, streaking, fluctuation, crepitus, or other signs of infection. Skin is atrophic and hairless. Granulation tissue noted. No signs of infection noted. Proximal aspect of wound noted to have healed mostly. There are 2 skin islands seen over original wound with minimal aspect of wound still open. wound area noted to dorsal lateral foot with fluid buildup noted. Upon expression mild sanguineous drainage expressed. This is to the level of fat without any purulence expressed. Less erythema and edema noted today. Edema noted to the left lower extremity, mild VASC Pulses are palpable 2 out of 4. Capillary refill time is less than 2 seconds to digits. MSK Muscle strength 5 out of 5 for all pedal groups. NEURO Minor decrease in epicritic sensation noted. Patient also noted to be hypersensitive which is easily tickled especially to plantar foot. Debridement Note Debridement Note Wound debrided: Dorsal and lateral foot Laterality: Left Wound Grade/Stage: Senior 1 Type of Debridement: Excisional debridement Anesthesia Used: 4% Lidocaine Solution Depth: in the subcutaneous layer Percentage of wound debrided: 100 Instrument Used: 3mm curette Tissue Removed: includes fibrous, devitalized, biofilm, callus and slough tissue Severity: Fat Layer Exposed Amount of bleeding with debridement: Mild Bleeding Controlled with: Pressure Patient tolerated procedure: Patient tolerated procedure well Post-Debridement Measurements and Additional Note: Wound Measurements and Assessment WC - Nurse 1 - General Ulcer Measurement Start: 07/09/21 10:32 Freq: Status: Active Protocol: Activity Type Activity Date Activity User E-Sign Co-Sign Detail Recorded Client Recorded Date Recorded By Document 07/30/21 11:05 [facility] Desktop 07/30/21 11:09 [facility] 07/30/21 11:05 Wound Center Nurse 1 [Ulcer Assessment] 2-left dorsal foot -Combined with other wound No -Current Size (cm) - Length 0.2 -Current Size (cm) - Width 0.2 -Current Size (cm) - Depth 0.1 -Total Square Cm 0.04 -Epithelialization Medium 34-66% -Tunneling No -Undermining/Tunneling No -Circular Undermining No -Exudate Amt None Present -Wound Margin Distinct, Outline Attached -Granulation Amt Large (67-100%) -Granulation Quality Red -Slough/Fibrin No -Necrosis Amt None Present (0 %) -Texture (Anna-wound Skin Appearance) Assessed, Scarring -Moisture (Anna-wound Skin Appearance Assessed, ) Maceration -Color (Anna-wound Skin Appearance) Assessed,Palor -Temperature (Anna-wound Skin No Abnormality Appearance) (Pt Warm) -Tenderness on Palpation (Anna-wound No Skin Appearance) -Ulcer Cleansing Soap and Water -Foul Odor after Cleansing No -Anesthetic Used 4% Lidocaine Solution #1 Left Lat Foot Post Op -Combined with other wound No -Current Size (cm) - Length 1 -Current Size (cm) - Width 3.2 -Current Size (cm) - Depth 0.2 -Total Square Cm 3.2 -Photo Taken No -Epithelialization Small 1-33% -Tunneling No -Undermining/Tunneling No -Circular Undermining No -Exudate Amt Medium -Exudate Type Serosanguineous -Wound Margin Distinct, Outline Attached -Granulation Amt Large (67-100%) -Granulation Quality Red -Slough/Fibrin Yes -Necrosis Amt Small (1-33%) -Necrotic Tissue Type Adherent Slough -Texture (Anna-wound Skin Appearance) Assessed,Callus ,Scarring -Moisture (Anna-wound Skin Appearance Assessed, ) Maceration,Dry/ Scaly -Color (Anna-wound Skin Appearance) Assessed,Palor -Temperature (Anna-wound Skin No Abnormality Appearance) (Pt Warm) -Tenderness on Palpation (Anna-wound No Skin Appearance) -Ulcer Cleansing Soap and Water -Foul Odor after Cleansing No -Anesthetic Used 4% Lidocaine Solution [Edema Assessment] -Lower Limb Edema Present Yes -Left Calf (cm) 43.2 -Left Ankle (cm) 32.2 WC - Nurse 2 - General Ulcer CM Notes Start: 07/09/21 10:32 Freq: Status: Active Protocol: Activity Type Activity Date Activity User E-Sign Co-Sign Detail Recorded Client Recorded Date Recorded By Document 07/30/21 11:27 GABBI [id number] 07/30/21 11:35 GABBI 07/30/21 11:27 Wound Center Nurse 2 [Procedure/Treatment] 2-left dorsal foot -Time 11:27 -Correct Patient Yes -Correct Side, Site, Position Yes -Correct Procedure Yes -Procedure Performed Yes -Type of Procedure Debridement -Clinical Debridement Subcutaneous -Tissue Removed Subcutaneous -Post Debridement (cm) - Length 0.3 -Post Debridement (cm) - Width 0.2 -Post Debridement (cm) - Depth 0.5 -Total Square (Post) (cm) 0.06 -Area of Debridement (cm) - Length 0.3 -Area of Debridement (cm) - Width 0.2 -Total Square (Area) (cm) 0.06 -Tunneling No -Undermining/Tunneling No -Circular Undermining No -Wound/Ulcer Outcome Not Healed -Ulcer Cleansing Rinsed/ Irrigated with Saline -Foul Odor after Cleansing No -Bioengineered Tissue No -Bleeding Controlled with Pressure -Offloading Yes -Type of Offloading Surgical Shoe -Treatment Response Procedure Not Tolerated Well -Debridement - Subq, 1st 20sq cm No #1 Left Lat Foot Post Op -Time 11:29 -Correct Patient Yes -Correct Side, Site, Position Yes -Correct Procedure Yes -Procedure Performed Yes -Type of Procedure Debridement -Clinical Debridement Subcutaneous -Tissue Removed Subcutaneous -Post Debridement (cm) - Length 5.7 -Post Debridement (cm) - Width 1 -Post Debridement (cm) - Depth 0.1 -Total Square (Post) (cm) 5.7 -Area of Debridement (cm) - Length 1.7 -Area of Debridement (cm) - Width 1 -Total Square (Area) (cm) 1.7 -Tunneling No -Undermining/Tunneling No -Circular Undermining No -Wound/Ulcer Outcome Not Healed -Ulcer Cleansing Rinsed/ Irrigated with Saline -Foul Odor after Cleansing No -Bioengineered Tissue Yes -Type of Bioengineered Tissue Epifix -Expiration Date 03/02/26 -Product Lot Number [id number] -Percent Used 100 -Lot number of Saline Used [id number] -Bleeding Controlled with Pressure -Offloading Yes -Type of Offloading Surgical Shoe -Treatment Response Procedure Tolerated Well -Debridement - Subq, 1st 20sq cm No -Apply Skin Sub - 1st 25 sq cm - Feet 1 -Epifix (per sq cm) 4 [See Physician Procedure note for Specifics] Pain Scale: 0-10 Numeric [Pain] -Is Patient Pain Free? Yes WC - Nurse 3 - General Ulcer D/C NN Start: 07/09/21 10:32 Freq: Status: Active Protocol: Activity Type Activity Date Activity User E-Sign Co-Sign Detail Recorded Client Recorded Date Recorded By Document 07/30/21 11:40 DL [id number] 07/30/21 11:45 DL 07/30/21 11:40 Wound Care Nurse 3 [Wound Dressing] 2-left dorsal foot -Foul Odor after Cleansing No -Other Dressing EpiFix -Primary Dressing Covered/Secured Dry Gauze & with Roll Gauze, Secured with Tape #1 Left Lat Foot Post Op -Foul Odor after Cleansing No -Other Dressing EpiFix -Primary Dressing Covered/Secured Dry Gauze & with Roll Gauze, Secured with Tape [Compression Applied] Left -Tubular Bandage Double Layer -Size of Tubigrip Used Size F -Size F ($) 1 Pain Scale: 0-10 Numeric [Pain] -Is Patient Pain Free? Yes WC - Visit Discharge [Visit Discharge Information] -Discharge Condition Stable -Ambulatory Status Ambulatory -Transportation Private Auto Assessment/Plan Assessment/Plan (1) Non-pressure chronic ulcer of other part of left foot with necrosis of muscle: CODE(S): L97.523 - Non-pressure chronic ulcer of other part of left foot with necrosis of muscle (2) Diabetes mellitus, type 2: CODE(S): E11.9 - Type 2 diabetes mellitus without complications QUALIFIERS: Diabetes mellitus complication detail: with polyneuropathy Diabetes mellitus complication status: with neurologic complications Diabetes mellitus skilled nursing insulin use: without bed bug exterminator use Qualified Code(s): E11.42 - Type 2 diabetes mellitus with diabetic polyneuropathy (3) Obesity: CODE(S): E66.9 - Obesity, unspecified (4) Ulcer of left foot with muscle involvement without evidence of necrosis: CODE(S): L97.525 - Non-pressure chronic ulcer of other part of left foot with muscle involvement without evidence of necrosis PLAN: Patient seen and examined with present. Wound looks healthy in appearance and has shrunk in size with proximal aspect of the ulceration largely healed there are more skin islands noted. He relates he has not had any issues with antibiotics. He relates her thing is looking better and there is less drainage from the blistered area. Patient continues to take the Augmentin. Wound is improved with more granulation tissue noted. Patient is noted to have offloaded surgical shoe and wheelchair or crutches for offloading patient reports no systemic signs of illness at this time. Culture obtained 07/23/2021 demonstrated staph aureus, strep anginosus, sphingomonas paucimobilis, anaerobic cocci. Patient started on a course of Augmentin which she continues to take. Patient is also noted to have vascular studies done on 04/29/2021 demonstrating triphasic waveforms to PT and DP bilaterally with mild degree of large vessel disease despite noncompressible vessels. Right TBI was 0.78 and left TBI was 0.47 possibly consistent with small vessel disease. After verbal consent was obtained ulceration was debrided sharply Discussed importance of smoking cessation, blood sugar control, weight management, offloading, proper nutrition, infection control and hygiene to optimize healing potential. Patient hemoglobin A1c was 9.5% on 04/28/2021. Discussed follow-up with primary care provider or fabric designer in order to have better control over his blood sugar. Discussed that this is impacting his healing. Patient was approved for epi fix graft application. I recommend application of advanced wound healing product to the indicated ulceration. Prior authorization was confirmed. The indications, benefits, anticipated application and healing time management were reviewed in detail. Verbal consent was obtained in the procedure for today. Site was debrided and graft was applied according to standard protocol and was further secured with a nonadherent dressing and Steri-Strips. Patient instructed that they can change outer dressing but not to go beneath the Steri-Strips. Tubigrip was applied. 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 All questions answered. Reviewed concerning signs and symptoms to watch out for and to contact office if any of these present or go to the emergency room. Patient is to follow-up in 2 weeks with myself and next week with Dr. Ramos for likely new epi fix graft application This note was generated with [employer] dictation software. It may contain incorrect words, spelling, and punctuation that were not noted in checking the note before signing.
[2021-07-30 11:05] VITALS: BP 164/93; PULSE 89; RESP 16; TEMP 36.6; BMI 35.6
== END 2021-08-01 23:59 ==
LOC: WC 11:15
PROVIDERS: PCP Physician Assistant Medical; Referring Provider Hospitalist; Visit Provider Podiatrist Foot & Ankle Surgery
DX: E11.621 Type 2 diabetes mellitus with foot ulcer (principal); I10 Essential (primary) hypertension; I25.10 Atherosclerotic heart disease of native coronary artery without angina pectoris; A48.0 Gas gangrene; E11.52 Type 2 diabetes mellitus with diabetic peripheral angiopathy with gangrene; Z95.1 Presence of aortocoronary bypass graft; L97.522 Non-pressure chronic ulcer of other part of left foot with fat layer exposed; E66.9 Obesity, unspecified; Z68.35 Body mass index [BMI] 35.0-35.9, adult; E11.42 Type 2 diabetes mellitus with diabetic polyneuropathy
CPT/HCPCS: 11042; 15275; 87070; 87075; 87077; 87186; 87205; 87640; Q4186

== ENCOUNTER 2021-08-28 11:30 | Outpatient (RCR) | payer BC, MEDICAID, SELFPAY ==
[2021-08-02 00:15] VITALS: BP 164/93; PULSE 89; RESP 16; TEMP 36.6; BMI 35.6
[2021-08-06 11:29] VITALS: BP 145/79; PULSE 75; RESP 20; TEMP 36.6; BMI 35.6
--- NOTE | 2021-08-06 12:48 | PCM.WC.HP ---
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 Patient has significant medical history including diabetes, hypertension, coronary artery disease, anemia, aortic martinez artery bypass grafting. 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 Patient underwent surgical debridement of the wound with Dr. Gerber on 04/28/2021. There is noted to be a large deficit due to the severity of his infection. Patient was started on wound VAC therapy while in the hospital and was discharged with this. Patient was also discharged with infectious disease recommendations including Augmentin. It was noted that patient is not able to find a home health care company that would take him. Is discussed that his be trained between personnel at the hospital my office and wound care center to change the wound VAC and to contact us if there is any questions or concerns. Patient reports to the wound care center for continued care. Patient has finished wound VAC therapy. He has been approved for epi fix grafting. 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 Lenny Katz MD) Anxiety Alex's palsy Diabetic foot ulcer Myocardial infarct Home Medications Invokana 100 mg PO DAILY 04/28/21 [History Last Taken 04/28/21] ascorbic acid (vitamin C) [Vitamin C] 500 mg PO BID 04/28/21 [History Last Taken 04/28/21] aspirin 81 mg PO DAILY 04/28/21 [History Last Taken 04/28/21] carvedilol 25 mg PO BID 04/28/21 [History Last Taken 04/28/21] furosemide [Lasix] 40 mg PO DAILY 04/28/21 [History Last Taken 04/28/21] lisinopril 20 mg PO DAILY 04/28/21 [History Last Taken 04/28/21] metformin 1,000 mg PO BID 04/28/21 [History Last Taken 04/28/21] amoxicillin-pot clavulanate [Augmentin] 1 tab PO BID #14 tab 04/30/21 [Rx Last Taken Unknown] oxycodone-acetaminophen 1 tab PO Q6H PRN 5 Days #20 tab 04/30/21 [Rx Last Taken Unknown] amoxicillin-pot clavulanate [Augmentin] 1 tab PO BID 14 Days #28 tab 07/25/21 [Rx Last Taken Unknown] Allergy/AdvReac Type Severity Reaction Status Date / Time No Known Allergies Allergy Verified 04/28/21 16:09 Surgical History History of ear, nose, and throat (ENT) surgery History of quadruple bypass Social History Smoking Status: Never smoker alcohol intake: never Vital Signs Vital Signs Vital Signs: 08/06/21 11:29 Temperature 97.8 F Temperature Source Temporal Pulse Rate 75 Respiratory Rate 20 H Blood Pressure 145/79 H Blood Pressure Mean 101 Blood Pressure Source Monitor Weight Weight: 270 lb Body Mass Index (BMI) 35.6 Physical Exam Const alert, oriented x3, no apparent distress and well nourished General Appearance: cooperative, comfortable and well developed Orientation / Consciousness: awake, oriented to person, oriented to place and oriented to time HEENT normocephalic and head/scalp atraumatic Head and Scalp: normal to inspection, normocephalic and atraumatic External Ear: external ears normal Eyes PERRL and EOMs intact bilaterally General Eye: normal appearance of both eyes Resp normal respiratory effort, normal air movement, no retractions and no use of accessory muscles Effort and Inspection: able to speak in complete sentences Extremity no calf tenderness Extremity Narrative: Mild swelling and edema are noted in the patient's left lower extremity. General Extremity: Negative for clubbing or cyanosis Skin Wound Narrative: An ulceration is noted on the left lateral foot, which is clustered. There is no sign of infection or cellulitis. Dimensions are documented elsewhere. There is a small amount of bioburden. Callus is noted to surround the ulceration. Neuro oriented x3, CN's II-XII intact bilaterally and moves all extremities Sensorium / Orientation: awake, alert, oriented to person, oriented to place and oriented to time Psych Appearance: grossly normal and appropriate Attitude: calm Activity / Motor Behavior: appropriate eye contact Speech: normal speech Mood & Affect: euthymic mood Thought Process: normal thought process Thought Content: normal thought content Attention / Concentration: attention grossly intact Debridement Note Debridement Note Wound debrided: Left lateral foot Laterality: Left Wound Grade/Stage: Senior 1 Type of Debridement: Excisional debridement Anesthesia Used: 5% Lidocaine Gel Depth: Down to and including healthy tissue and in the subcutaneous layer Percentage of wound debrided: 100 Instrument Used: 5mm curette Tissue Removed: Bioburden, nonviable tissue, and callus Severity: Fat Layer Exposed Amount of bleeding with debridement: Mild Bleeding Controlled with: Compression and gauze Patient tolerated procedure: Patient tolerated procedure well Debridement Free Text: Following a routine excisional debridement, which was well-tolerated by the patient, a 2 cm x 2 cm allograft was selected for placement on the ulceration. An EpiFix allograft was selected. Upon removal from its sterile packaging, the allograft was cut into the appropriate sizes, and placed topically on the clustered ulceration. It was placed in the appropriate orientation, with the proper side facing upward. And Adaptic Touch was then placed so as to anchor the allograft in place. Steri-Strips were used to secure the Adaptic in place. The patient tolerated the procedure. A dry sterile gauze dressing was then applied. Post-Debridement Measurements and Additional Note: Post-Debridement Measurements/Treatment - Nurse 1 - General Ulcer Assessment Start: 08/06/21 11:29 Freq: Status: Active Protocol: [email or web address] Activity Type Activity Date Activity User E-Sign Co-Sign Detail Recorded Client Recorded Date Recorded By Document 08/06/21 11:29 DL [id number] 08/06/21 11:40 DL 08/06/21 11:29 - Today's Visit Information Type of service Follow-up Visit (Physician/BRIMMER BLOCKER ) Arrival Mode Ambulatory Transfer Assistance None Patient Requires Transmission-Based No Precautions Height and Weight Body Mass Index (BMI) 35.6 BMI Classification Obese Vital Signs Temperature (97.8 F-99.1 F) 97.8 F Temperature Source Temporal Pulse Rate (60-100) 75 Pulse Location Monitor Respiratory Rate (12-18) 20 H Respiratory rate source Observation Blood Pressure (90/60-120/80) 145/79 H Blood Pressure Mean 101 Source Monitor History Since Last Visit- (Skip if this is Patient's initial visit) Have you changed medications since your No last visit? Any new allergies or adverse reactions No Had a fall/change in ADL's that may No increase risk of falls Signs or symptoms of abuse and/or No neglect since last visit Have you been in the hospital since your No last visit? Has dressing in place as prescribed Yes Has compression in place as prescribed Yes Has offloadiing in place as prescribed Yes Experienced any changes in pain level or No management Pain Scale: 0-10 Numeric Is Patient Pain Free? Yes WC - Nurse 1 - General Ulcer Measurement Start: 08/06/21 11:29 Freq: Status: Active Protocol: Activity Type Activity Date Activity User E-Sign Co-Sign Detail Recorded Client Recorded Date Recorded By Document 08/06/21 11:29 DL [id number] 08/06/21 11:40 DL 08/06/21 11:29 Wound Center Nurse 1 2-left dorsal foot -Current Size (cm) - Length 0.2 -Current Size (cm) - Width 0.2 -Current Size (cm) - Depth 0.8 -Total Square Cm 0.04 -Photo Taken No -Exudate Amt Small -Exudate Type Serosanguineous -Wound Margin Distinct, Outline Attached -Granulation Amt Large (67-100%) -Granulation Quality [place] -Necrosis Amt None Present (0 %) -Structure Exposed N/A -Texture (Anna-wound Skin Appearance) Localized Edema ,Scarring -Moisture (Anna-wound Skin Appearance) No Abnormality -Color (Anna-wound Skin Appearance) No Abnormality -Temperature (Anna-wound Skin No Abnormality Appearance) (Pt Warm) -Tenderness on Palpation (Anna-wound No Skin Appearance) -Foul Odor after Cleansing No -Anesthetic Used 4% Lidocaine Solution #1 Left Lat Foot Post Op -Current Size (cm) - Length 0.8 -Current Size (cm) - Width 0.7 -Current Size (cm) - Depth 0.6 -Total Square Cm 0.56 -Photo Taken No -Undermining/Tunneling Starts (O'clock 7 ) -Undermining/Tunneling Ends (O'clock) 10 -Maximum Distance #2 (cm) 1.2 -Exudate Amt Medium -Exudate Type Serosanguineous -Wound Margin Thickened & Rolled Under -Granulation Amt Large (67-100%) -Granulation Quality [place] -Necrosis Amt Small (1-33%) -Necrotic Tissue Type Adherent Slough -Structure Exposed N/A -Texture (Anna-wound Skin Appearance) Scarring -Moisture (Anna-wound Skin Appearance) Maceration -Color (Anna-wound Skin Appearance) No Abnormality -Temperature (Anna-wound Skin No Abnormality Appearance) (Pt Warm) -Tenderness on Palpation (Anna-wound No Skin Appearance) -Ulcer Cleansing Wound Cleanser -Foul Odor after Cleansing No -Anesthetic Used 4% Lidocaine Solution Left Calf (cm) 47 Left Ankle (cm) 30.5 WC - Nurse 2 - General Ulcer CM Notes Start: 08/06/21 11:29 Freq: Status: Active Protocol: Activity Type Activity Date Activity User E-Sign Co-Sign Detail Recorded Client Recorded Date Recorded By Document 08/06/21 12:44 PL [id number] 08/06/21 12:47 PL 08/06/21 12:44 Wound Center Nurse 2 2-left dorsal foot -Time 11:56 -Correct Patient Yes -Correct Side, Site, Position Yes -Correct Procedure Yes -Procedure Performed Yes -Type of Procedure Debridement -Clinical Debridement Subcutaneous -Tissue Removed Subcutaneous -Post Debridement (cm) - Length 0.2 -Post Debridement (cm) - Width 0.2 -Post Debridement (cm) - Depth 0.8 -Total Square (Post) (cm) 0.04 -Area of Debridement (cm) - Length 0.2 -Area of Debridement (cm) - Width 0.2 -Total Square (Area) (cm) 0.04 -Tunneling No -Undermining/Tunneling No -Circular Undermining No -Wound/Ulcer Outcome Not Healed -Ulcer Cleansing Rinsed/ Irrigated with Saline -Foul Odor after Cleansing No -Bioengineered Tissue No -Bleeding Controlled with Pressure -Treatment Response Procedure Tolerated Well -Debridement - Subq, 1st 20sq cm No #1 Left Lat Foot Post Op -Time 11:56 -Correct Patient Yes -Correct Side, Site, Position Yes -Correct Procedure Yes -Procedure Performed Yes -Type of Procedure Debridement -Clinical Debridement Subcutaneous -Tissue Removed Subcutaneous -Post Debridement (cm) - Length 0.8 -Post Debridement (cm) - Width 0.7 -Post Debridement (cm) - Depth 0 -Total Square (Post) (cm) 0.56 -Area of Debridement (cm) - Length 0.8 -Area of Debridement (cm) - Width 0.7 -Total Square (Area) (cm) 0.56 -Tunneling No -Undermining/Tunneling No -Circular Undermining No -Wound/Ulcer Outcome Not Healed -Ulcer Cleansing Rinsed/ Irrigated with Saline -Foul Odor after Cleansing No -Bioengineered Tissue Yes -Type of Bioengineered Tissue Epifix -Expiration Date 03/02/26 -Product Lot Number [id number] -Percent Used 100 -Bleeding Controlled with Pressure -Treatment Response Procedure Tolerated Well -Debridement - Subq, 1st 20sq cm No -Apply Skin Sub - 1st 25 sq cm - Feet 1 -Epifix (per sq cm) 4 WC - Nurse 3 - General Ulcer D/C NN Start: 08/06/21 11:29 Freq: Status: Active Protocol: Activity Type Activity Date Activity User E-Sign Co-Sign Detail Recorded Client Recorded Date Recorded By Document 08/06/21 12:10 ML [id number] 08/06/21 12:11 ML 08/06/21 12:10 Wound Care Nurse 3 -Primary Dressing Covered/Secured with Dry Gauze & Roll Gauze, Secured with Tape Left -Tubular Bandage Double Layer -Size of Tubigrip Used Size F -Size F ($) 1 WC - Visit Discharge Discharge Condition Stable Ambulatory Status Ambulatory Transportation Private Auto Medication Reconcilliation completed & No provided to patient/care provider Clinical Summary of Care Provided Yes Assessment/Plan Assessment/Plan (1) Diabetic foot ulcer: CODE(S): E11.621 - Type 2 diabetes mellitus with foot ulcer; L97.509 - Non-pressure chronic ulcer of other part of unspecified foot with unspecified severity (2) Ulcer of left foot with muscle involvement without evidence of necrosis: CODE(S): L97.525 - Non-pressure chronic ulcer of other part of left foot with muscle involvement without evidence of necrosis (3) Diabetic foot infection: CODE(S): E11.628 - Type 2 diabetes mellitus with other skin complications; L08.9 - Local infection of the skin and subcutaneous tissue, unspecified (4) Obesity: CODE(S): E66.9 - Obesity, unspecified (5) Left foot pain: CODE(S): M79.672 - Pain in left foot (6) Necrotizing fasciitis: CODE(S): M72.6 - Necrotizing fasciitis (7) Diabetes mellitus, type 2: CODE(S): E11.9 - Type 2 diabetes mellitus without complications QUALIFIERS: Diabetes mellitus termite control servicer insulin use: without termite control servicer use Diabetes mellitus complication status: with neurologic complications Diabetes mellitus complication detail: with polyneuropathy Qualified Code(s): E11.42 - Type 2 diabetes mellitus with diabetic polyneuropathy (8) HTN (hypertension): CODE(S): I10 - Essential (primary) hypertension (9) Coronary artery disease: CODE(S): I25.10 - Atherosclerotic heart disease of [place] coronary artery without angina pectoris (10) Status post aorto-coronary artery bypass graft: CODE(S): Z95.1 - Presence of aortocoronary bypass graft (11) Non-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 It has continued to diminish in size. He relates he has not had any issues with antibiotics. Patient continues to take the Augmentin. Wound is improved with more granulation tissue noted. Patient is noted to have offloaded surgical shoe and wheelchair or crutches for offloading. The patient reports no systemic signs of illness at this time. Culture obtained 07/23/2021 demonstrated staph aureus, strep anginosus, sphingomonas paucimobilis, anaerobic cocci. Patient started on a course of Augmentin which he continues to take. Patient is also noted to have vascular studies done on 04/29/2021 demonstrating triphasic waveforms to PT and DP bilaterally with mild degree of large vessel disease despite noncompressible vessels. Right TBI was 0.78 and left TBI was 0.47 possibly consistent with small vessel disease. After verbal consent was obtained ulceration was debrided sharply Discussed importance of smoking cessation, blood sugar control, weight management, offloading, proper nutrition, infection control and hygiene to optimize healing potential. Patient hemoglobin A1c was 9.5% on 04/28/2021. Discussed follow-up with primary care provider or production analyst in order to have better control over his blood sugar. Discussed that this is impacting his healing. Patient was approved for epi fix graft application. The seventh such application of EpiFix was applied today. Prior authorization was confirmed. The indications, benefits, anticipated application and healing time management were reviewed in detail. Verbal consent was obtained in the procedure for today. Site was debrided and graft was applied according to standard protocol and was further secured with a nonadherent dressing and Steri-Strips. Patient instructed that they can change outer dressing but not to go beneath the Steri-Strips. Tubigrip was applied. 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 All questions answered. Reviewed concerning signs and symptoms to watch out for and to contact office if any of these present or go to the emergency room. Patient is to follow up in [address] Gerber. Total time: 40 minutes
[2021-08-13 11:19] VITALS: BP 163/84; PULSE 77; RESP 18; TEMP 36.6; BMI 35.6
--- NOTE | 2021-08-13 12:36 | PCM.WC.PN ---
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 Patient has significant medical history including diabetes, hypertension, coronary artery disease, anemia, aortic martinez artery bypass grafting. 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 Patient underwent surgical debridement of the wound with Dr. Gerber on 04/28/2021. There is noted to be a large deficit due to the severity of his infection. Patient was started on wound VAC therapy while in the hospital and was discharged with this. Patient was also discharged with infectious disease recommendations including Augmentin. It was noted that patient is not able to find a home health care company that would take him. Is discussed that his be trained between personnel at the hospital my office and wound care center to change the wound VAC and to contact us if there is any questions or concerns. Patient reports to the wound care center for continued care. Patient has finished wound VAC therapy. He has been approved for epi fix grafting. 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 Patient denies any new pedal complaints. Patient denies any nausea, fever, chills, chest pain, shortness of breath, cough, streaking, purulence, vomiting. Patient reports less drainage Objective Data Objective Data Vital Signs: Vital Signs Temp Pulse Resp BP 97.8 F 77 18 163/84 H 08/13/21 11:19 08/13/21 11:19 08/13/21 11:19 08/13/21 11:19 Weight: 122.47 kg Body Mass Index (BMI) 35.6 Physical Exam Narrative Skin Wound Narrative: ulcers noted to left lateral foot down to the level of fascia. No malodor, purulence, probing to bone, streaking, fluctuation, crepitus, or other signs of infection. Skin is atrophic and hairless. Granulation tissue noted. No signs of infection noted. Proximal aspect of wound noted to have healed wound area noted to dorsal lateral foot has healed. Distal to this is new area of concern for blister development. Noted that lateral wound probes near this area. Edema noted to the left lower extremity, mild VASC Pulses are palpable 2 out of 4. Capillary refill time is less than 2 seconds to digits. MSK Muscle strength 5 out of 5 for all pedal groups. NEURO Minor decrease in epicritic sensation noted. Patient also noted to be hypersensitive which is easily tickled especially to plantar foot. Debridement Note Debridement Note Wound debrided: Lateral foot Laterality: Left Wound Grade/Stage: Senior 1 Type of Debridement: Excisional debridement Anesthesia Used: 4% Lidocaine Solution Depth: in the subcutaneous layer Percentage of wound debrided: 100 Instrument Used: 3mm curette Tissue Removed: includes fibrous, devitalized, biofilm, callus and slough tissue Severity: Fat Layer Exposed Amount of bleeding with debridement: Mild Bleeding Controlled with: Pressure Patient tolerated procedure: Patient tolerated procedure well Post-Debridement Measurements and Additional Note: Post-Debridement Measurements/Treatment - Nurse 1 - General Ulcer Assessment Start: 08/06/21 11:29 Freq: Status: Active Protocol: MARILYN Activity Type Activity Date Activity User E-Sign Co-Sign Detail Recorded Client Recorded Date Recorded By Document 08/06/21 11:29 DL [id number] 08/06/21 11:40 DL Document 08/13/21 11:19 DL Desktop 08/13/21 11:26 DL 08/06/21 08/13/21 11:29 11:19 - Today's Visit Information Type of service Follow-up Visit Follow-up Visit (Physician/INTERNAL COMBUSTION ENGINE SUBASSEMBLER (Physician/INTERNAL COMBUSTION ENGINE SUBASSEMBLER ) ) Arrival Mode Ambulatory Ambulatory Transfer Assistance None None Patient Identification Verified (Name & Yes ) Patient Requires Transmission-Based No No Precautions Height and Weight Body Mass Index (BMI) 35.6 35.6 BMI Classification Obese Obese Vital Signs Temperature (97.8 F-99.1 F) 97.8 F 97.8 F Temperature Source Temporal Temporal Pulse Rate (60-100) 75 77 Pulse Location Monitor Monitor Respiratory Rate (12-18) 20 H 18 Respiratory rate source Observation Observation Blood Pressure (90/60-120/80) 145/79 H 163/84 H Blood Pressure Mean (mm Hg) 101 110 Source Monitor Monitor History Since Last Visit- (Skip if this is Patient's initial visit) Have you changed medications since your No No last visit? Any new allergies or adverse reactions No No Had a fall/change in ADL's that may No No increase risk of falls Signs or symptoms of abuse and/or No No neglect since last visit Have you been in the hospital since your No No last visit? Has dressing in place as prescribed Yes Yes Has compression in place as prescribed Yes Has offloadiing in place as prescribed Yes Yes Experienced any changes in pain level or No No management Left Footwear Surgical Shoe with pressure relief insole Pain Scale: 0-10 Numeric Is Patient Pain Free? Yes Yes WC - Nurse 1 - General Ulcer Measurement Start: 08/06/21 11:29 Freq: Status: Active Protocol: Activity Type Activity Date Activity User E-Sign Co-Sign Detail Recorded Client Recorded Date Recorded By Document 08/06/21 11:29 DL [id number] 08/06/21 11:40 DL Document 08/13/21 11:19 DL Desktop 08/13/21 11:26 DL 08/06/21 08/13/21 11:29 11:19 Wound Center Nurse 1 2-left dorsal foot -Combined with other wound No -Current Size (cm) - Length 0.2 0.1 -Current Size (cm) - Width 0.2 0.1 -Current Size (cm) - Depth 0.8 0.1 -Total Square Cm 0.04 0.01 -Photo Taken No No -Tunneling No -Undermining/Tunneling No -Circular Undermining No -Exudate Amt Small None Present -Exudate Type Serosanguineous -Wound Margin Distinct, Outline Attached -Granulation Amt Large (67-100%) -Granulation Quality Lequire -Necrosis Amt None Present (0 %) -Structure Exposed N/A -Texture (Anna-wound Skin Appearance) Localized Edema Assessed, ,Scarring Scarring -Moisture (Anna-wound Skin Appearance) No Abnormality Assessed,Dry/ Scaly -Color (Anna-wound Skin Appearance) No Abnormality Assessed -Temperature (Anna-wound Skin No Abnormality No Abnormality Appearance) (Pt Warm) (Pt Warm) -Tenderness on Palpation (Anna-wound No No Skin Appearance) -Ulcer Cleansing Soap and Water -Foul Odor after Cleansing No No -Anesthetic Used 4% Lidocaine 5% Lidocaine Solution Gel #1 Left Lat Foot Post Op -Combined with other wound No -Current Size (cm) - Length 0.8 0.6 -Current Size (cm) - Width 0.7 0.5 -Current Size (cm) - Depth 0.6 1.1 -Total Square Cm 0.56 0.30 -Photo Taken No No -Epithelialization None Present -Tunneling No -Undermining/Tunneling Yes -Undermining/Tunneling Starts (O'clock 7 7 ) -Undermining/Tunneling Ends (O'clock) 10 1 -Maximum Distance (cm) 1.8 -Maximum Distance #2 (cm) 1.2 -Circular Undermining No -Exudate Amt Medium Medium -Exudate Type Serosanguineous Serosanguineous -Wound Margin Thickened & Distinct, Rolled Under Outline Attached -Granulation Amt Large (67-100%) Large (67-100%) -Granulation Quality Lequire Red -Slough/Fibrin Yes -Necrosis Amt Small (1-33%) Small (1-33%) -Necrotic Tissue Type Adherent Slough Adherent Slough -Structure Exposed N/A -Texture (Anna-wound Skin Appearance) Scarring Assessed,Callus ,Scarring -Moisture (Anna-wound Skin Appearance) Maceration Assessed, Maceration -Color (Anna-wound Skin Appearance) No Abnormality Assessed,Palor -Temperature (Anna-wound Skin No Abnormality No Abnormality Appearance) (Pt Warm) (Pt Warm) -Tenderness on Palpation (Anna-wound No No Skin Appearance) -Ulcer Cleansing Wound Cleanser Soap and Water -Foul Odor after Cleansing No No -Anesthetic Used 4% Lidocaine 5% Lidocaine Solution Gel Left Calf (cm) 47 Left Ankle (cm) 30.5 WC - Nurse 2 - General Ulcer CM Notes Start: 08/06/21 11:29 Freq: Status: Active Protocol: Activity Type Activity Date Activity User E-Sign Co-Sign Detail Recorded Client Recorded Date Recorded By Document 08/06/21 12:44 PL [id number] 08/06/21 12:47 PL Document 08/13/21 11:34 [id number] 08/13/21 11:41 08/06/21 08/13/21 12:44 11:34 Wound Center Nurse 2 2-left dorsal foot -Time 11:56 11:37 -Correct Patient Yes No -Correct Side, Site, Position Yes No -Correct Procedure Yes No -Procedure Performed Yes No -Type of Procedure Debridement -Clinical Debridement Subcutaneous -Tissue Removed Subcutaneous -Post Debridement (cm) - Length 0.2 0 -Post Debridement (cm) - Width 0.2 0 -Post Debridement (cm) - Depth 0.8 0 -Total Square (Post) (cm) 0.04 0 -Area of Debridement (cm) - Length 0.2 0 -Area of Debridement (cm) - Width 0.2 0 -Total Square (Area) (cm) 0.04 0 -Tunneling No No -Undermining/Tunneling No No -Circular Undermining No No -Wound/Ulcer Outcome Not Healed Healed- Epithelialized -Ulcer Cleansing Rinsed/ Irrigated with Saline -Foul Odor after Cleansing No -Bioengineered Tissue No -Bleeding Controlled with Pressure Pressure -Offloading Yes -Type of Offloading Surgical Shoe -Treatment Response Procedure Procedure Tolerated Well Tolerated Well -Debridement - Subq, 1st 20sq cm No No #1 Left Lat Foot Post Op -Time 11:56 11:37 -Correct Patient Yes Yes -Correct Side, Site, Position Yes Yes -Correct Procedure Yes Yes -Procedure Performed Yes Yes -Type of Procedure Debridement Debridement -Clinical Debridement Subcutaneous Subcutaneous -Tissue Removed Subcutaneous Subcutaneous -Post Debridement (cm) - Length 0.8 2 -Post Debridement (cm) - Width 0.7 1 -Post Debridement (cm) - Depth 0 1.8 -Total Square (Post) (cm) 0.56 2 -Area of Debridement (cm) - Length 0.8 2 -Area of Debridement (cm) - Width 0.7 1 -Total Square (Area) (cm) 0.56 2 -Tunneling No No -Undermining/Tunneling No No -Circular Undermining No No -Wound/Ulcer Outcome Not Healed Not Healed -Ulcer Cleansing Rinsed/ Rinsed/ Irrigated with Irrigated with Saline Saline -Foul Odor after Cleansing No No -Bioengineered Tissue Yes No -Type of Bioengineered Tissue Epifix -Expiration Date 03/02/26 -Product Lot Number [id number] -Percent Used 100 -Bleeding Controlled with Pressure Pressure -Offloading Yes -Type of Offloading Surgical Shoe -Treatment Response Procedure Procedure Tolerated Well Tolerated Well -Debridement - Subq, 1st 20sq cm No Yes -Apply Skin Sub - 1st 25 sq cm - Feet 1 -Epifix (per sq cm) 4 Pain Scale: 0-10 Numeric Is Patient Pain Free? Yes WC - Nurse 3 - General Ulcer D/C NN Start: 08/06/21 11:29 Freq: Status: Active Protocol: Activity Type Activity Date Activity User E-Sign Co-Sign Detail Recorded Client Recorded Date Recorded By Document 08/06/21 12:10 ML [id number] 08/06/21 12:11 ML Document 08/13/21 11:51 BMF Desktop 08/13/21 11:52 BMF 08/06/21 08/13/21 12:10 11:51 Wound Care Nurse 3 #1 Left Lat Foot Post Op -Ulcer Cleansing Rinsed/ Irrigated with Saline -Foul Odor after Cleansing No -Primary Dressing Applied Other -Other Dressing moist to dry -Primary Dressing Covered/Secured with Dry Gauze & Dry Gauze & Roll Gauze, Roll Gauze, Secured with Secured with Tape Tape,Other -Other Covering abd Left -Tubular Bandage Double Layer -Size of Tubigrip Used Size F -Size F ($) 1 -Other applied pts own double layer tubi Treatment Response Procedure Tolerated Well Pain Scale: 0-10 Numeric Is Patient Pain Free? Yes WC - Visit Discharge Discharge Condition Stable Stable Ambulatory Status Ambulatory Ambulatory Transportation Private Auto Private Auto Accompanied by Medication Reconcilliation completed & No provided to patient/care provider Clinical Summary of Care Provided Yes Assessment/Plan Assessment/Plan (1) Chronic ulcer of left foot with fat layer exposed: CODE(S): L97.522 - Non-pressure chronic ulcer of other part of left foot with fat layer exposed (2) Type 2 diabetes mellitus with diabetic polyneuropathy: CODE(S): E11.42 - Type 2 diabetes mellitus with diabetic polyneuropathy (3) Obesity: CODE(S): E66.9 - Obesity, unspecified PLAN: Patient seen and examined with present. Wound looks healthy in appearance and has shrunk in size with proximal aspect of the ulceration healed. He relates the blistered area has stopped draining. He has concern for another area just distal blistering. Wound is improved with more granulation tissue noted. Patient is noted to have offloaded surgical shoe and wheelchair or crutches for offloading patient reports no systemic signs of illness at this time. Culture obtained 07/23/2021 demonstrated staph aureus, strep anginosus, sphingomonas paucimobilis, anaerobic cocci. Patient started on a course of Augmentin which he finished. Patient is also noted to have vascular studies done on 04/29/2021 demonstrating triphasic waveforms to PT and DP bilaterally with mild degree of large vessel disease despite noncompressible vessels. Right TBI was 0.78 and left TBI was 0.47 possibly consistent with small vessel disease. After verbal consent was obtained ulceration was debrided sharply Discussed importance of smoking cessation, blood sugar control, weight management, offloading, proper nutrition, infection control and hygiene to optimize healing potential. Patient hemoglobin A1c was 9.5% on 04/28/2021. Discussed follow-up with primary care provider or mushroom grower in order to have better control over his blood sugar. Discussed that this is impacting his healing. Patient was approved for epi fix graft application. Given drainage amount, it was decided to defer graft application this week. Dakins wet to dry packing to be changed daily. Dakins was not available today so saline wet to dry was applied. Patient relates that they have dakins and dressing supplies. Tubigrip was applied. 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 All questions answered. Reviewed concerning signs and symptoms to watch out for and to contact office if any of these present or go to the emergency room. Patient is to follow-up in 1 week This note was generated with [employer] dictation software. It may contain incorrect words, spelling, and punctuation that were not noted in checking the note before signing.
[2021-08-20 10:55] VITALS: BP 139/74; PULSE 76; RESP 20; TEMP 36.8; BMI 35.6
--- NOTE | 2021-08-20 12:15 | RAD_ITS ---
STUDY: X-RAY - LEFT FOOT CLINICAL: Male, 50 years old. Ulcer. TECHNIQUE: 3 view(s) of the foot. COMPARISON: 04/28/2021. FINDINGS: Osteopenia. Marked erosion of the distal aspect of the fifth metatarsal with fragmentation. Periosteal reaction in the shaft of the fifth metatarsal. Erosion of the proximal aspect of the proximal phalanx of the fifth digit. Findings are compatible with contiguous-spread osteomyelitis of the fifth metatarsal and the proximal phalanx of the fifth toe. Soft tissue swelling with minimal amount of soft tissue gas. RAD/Foot min 3 Views IMPRESSION: Contiguous-spread osteomyelitis of the fifth metatarsal and proximal phalanx of the fifth toe. Electronically Signed: Fortunato Stephens MD at 11:02 EDT , Service support ,
[2021-08-20 13:07] LABS: Erythrocyte Sedimentation Rate 37 mm/hr (0-20)
[2021-08-20 13:08] LABS: Absolute Lymphocyte Count 1.66 X10^3/uL (0.83-4.51); Absolute Neutrophil Count 6.8 X10^3/uL (2.0-7.7); Basophil# 0.03 X10^3/uL; Basophil% 0.3 % (0-1); Eosinophil# 0.33 X10^3/uL; Eosinophils% 3.4 % (0-5); Hematocrit 28.2 % (40-54); Lymphocyte # 1.66 X10^3/ul (0.83-4.51); Mean Corp Hgb Conc 31.9 g/dL (32-36); Mean Corpuscular Hgb 29.1 pg (27.0-32.0); Mean Corpuscular Volume 91.3 fL (80-94); Mean Platelet Vol. 10.2 fl (6.2-12.0); Monocyte# 0.83 X10^3/uL; Monocyte% 8.5 % (0-10); NRBC Flagged by Analyzer 0 % (0-5); Neutrophil # 6.81 X10^3/uL (2.7-7.7); Neutrophil % 69.8 % (47-70); Platelet Count 335 K/mm3 (150-450); RBC Distribution Width CV 12.2 % (11.6-14.6); RBC Distribution Width SD 40.5 fl (35.1-43.9); Red Blood Count 3.09 M/mm3 (4.6-6.2); White Blood Count 9.8 K/mm3 (4.4-11.0)
[2021-08-20 13:43] LABS: ALB/GLOB Ratio 0.6 RATIO (0.9-2.4); AST(SGOT) 10 U/L (15-37); Alanine Aminotransfer ALT/SGPT 13 U/L (16-61); Albumin, Serum 2.7 g/dL (3.2-5.0); Alkaline Phosphatase 88 U/L (45-117); Anion Gap 5 (5-15); BUN 27 mg/dL (7-18); BUN/Creat Ratio 20.9 RATIO (10-20); Calcium,Total 8.4 mg/dL (8.5-10.1); Chloride 105 mmol/L (98-107); Creatinine, Serum 1.29 mg/dL (0.70-1.30); EST Glomerular Filtration Rate 63 mL/min (>60); Est Glom Filt Rate - Afr Amer 76 mL/min (>60); Estimated Creatinine Clearance 77.42 ml/min; Globulin 4.6 g/dL (2.2-4.2); Glucose 266 mg/dL (74-106); Potassium 4.7 mmol/L (3.5-5.1); Protein, Total 7.3 g/dL (6.4-8.2); Sodium Level 137 mmol/L (136-145)
[2021-08-20 16:52] LABS: M R Staph aureus DNA By PCR Negative (Negative); Probe Check PASS; Specimen Processing Control PASS; Staph aureus DNA By PCR NEGATIVE (Negative)
--- NOTE | 2021-08-21 16:13 | PCM.WC.PN ---
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 Patient has significant medical history including diabetes, hypertension, coronary artery disease, anemia, aortic martinez artery bypass grafting. 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 Patient underwent surgical debridement of the wound with Dr. Gerber on 04/28/2021. There is noted to be a large deficit due to the severity of his infection. Patient was started on wound VAC therapy while in the hospital and was discharged with this. Patient was also discharged with infectious disease recommendations including Augmentin. It was noted that patient is not able to find a home health care company that would take him. Is discussed that his be trained between personnel at the hospital my office and wound care center to change the wound VAC and to contact us if there is any questions or concerns. Patient reports to the wound care center for continued care. Patient has finished wound VAC therapy. He has been approved for epi fix grafting. 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 Patient denies any new pedal complaints. Patient denies any nausea, fever, chills, chest pain, shortness of breath, cough, streaking, purulence, vomiting. Patient reports that he has had an increase in pain, swelling, redness, drainage over the last several days Objective Data Objective Data Vital Signs: Vital Signs Temp Pulse Resp BP 98.3 F 76 20 H 139/74 H 08/20/21 10:55 08/20/21 10:55 08/20/21 10:55 08/20/21 10:55 Weight: 122.47 kg Body Mass Index (BMI) 35.6 Physical Exam Narrative Skin Wound Narrative: ulcers noted to left lateral foot down to the level of bone. No malodor, purulence, fluctuation, crepitus. There is increase in edema and erythema and serous drainage consistent with infection. Bone that is palpable is hard in appearance. Skin is atrophic and hairless. Granulation tissue noted. Proximal aspect of wound noted to have healed. Dorsal or blistering is noted to remain closed. Edema noted to the left lower extremity, worsening VASC Pulses are palpable 2 out of 4. Capillary refill time is less than 2 seconds to digits. MSK Muscle strength 5 out of 5 for all pedal groups. NEURO Minor decrease in epicritic sensation noted. Patient also noted to be hypersensitive which is easily tickled especially to plantar foot. Debridement Note Debridement Note Wound debrided: Lateral foot Laterality: Left Wound Grade/Stage: Senior 2 Type of Debridement: Excisional debridement Anesthesia Used: 4% Lidocaine Solution Depth: to bone (Debrided to subcu) Percentage of wound debrided: 100 Instrument Used: 3mm curette Tissue Removed: includes fibrous, devitalized, biofilm, callus and slough tissue Severity: Fat Layer Exposed (Probes to bone) Amount of bleeding with debridement: Mild Bleeding Controlled with: Pressure Patient tolerated procedure: Patient tolerated procedure well Post-Debridement Measurements and Additional Note: Post-Debridement Measurements/Treatment - Nurse 1 - General Ulcer Assessment Start: 08/06/21 11:29 Freq: Status: Active Protocol: MARILYN Activity Type Activity Date Activity User E-Sign Co-Sign Detail Recorded Client Recorded Date Recorded By Document 08/06/21 11:29 DL [id number] 08/06/21 11:40 DL Document 08/13/21 11:19 DL Desktop 08/13/21 11:26 DL Document 08/20/21 10:55 DL Desktop 08/20/21 11:00 DL 08/06/21 08/13/21 08/20/21 11:29 11:19 10:55 - Today's Visit Information Type of service Follow-up Visit Follow-up Visit Follow-up Visit (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 (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 (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 ) ) ) Arrival Mode Ambulatory Ambulatory Cane Transfer Assistance None None None Patient Identification Verified (Name & Yes Yes ) Patient Requires Transmission-Based No No No Precautions Height and Weight Body Mass Index (BMI) 35.6 35.6 35.6 BMI Classification Obese Obese Obese Vital Signs Temperature (97.8 F-99.1 F) 97.8 F 97.8 F 98.3 F Temperature Source Temporal Temporal Temporal Pulse Rate (60-100) 75 77 76 Pulse Location Monitor Monitor Monitor Respiratory Rate (12-18) 20 H 18 20 H Respiratory rate source Observation Observation Observation Blood Pressure (90/60-120/80) 145/79 H 163/84 H 139/74 H Blood Pressure Mean (mm Hg) 101 110 95 Source Monitor Monitor Monitor History Since Last Visit- (Skip if this is Patient's initial visit) Have you changed medications since your No No No last visit? Any new allergies or adverse reactions No No No Had a fall/change in ADL's that may No No No increase risk of falls Signs or symptoms of abuse and/or No No No neglect since last visit Have you been in the hospital since your No No No last visit? Has dressing in place as prescribed Yes Yes Yes Has compression in place as prescribed Yes Yes Has offloadiing in place as prescribed Yes Yes Yes Experienced any changes in pain level or No No No management Left Footwear Surgical Shoe Surgical Shoe with pressure with pressure relief insole relief insole Right Footwear Regular Shoe Pain Scale: 0-10 Numeric Is Patient Pain Free? Yes Yes Yes WC - Nurse 1 - General Ulcer Measurement Start: 08/06/21 11:29 Freq: Status: Active Protocol: Activity Type Activity Date Activity User E-Sign Co-Sign Detail Recorded Client Recorded Date Recorded By Document 08/06/21 11:29 DL [id number] 08/06/21 11:40 DL Document 08/13/21 11:19 DL Desktop 08/13/21 11:26 DL Document 08/20/21 10:55 DL Desktop 08/20/21 11:00 DL 08/06/21 08/13/21 08/20/21 11:29 11:19 10:55 Wound Center Nurse 1 2-left dorsal foot -Combined with other wound No -Current Size (cm) - Length 0.2 0.1 -Current Size (cm) - Width 0.2 0.1 -Current Size (cm) - Depth 0.8 0.1 -Total Square Cm 0.04 0.01 -Photo Taken No No -Tunneling No -Undermining/Tunneling No -Circular Undermining No -Exudate Amt Small None Present -Exudate Type Serosanguineous -Wound Margin Distinct, Outline Attached -Granulation Amt Large (67-100%) -Granulation Quality [place] -Necrosis Amt None Present (0 %) -Structure Exposed N/A -Texture (Anna-wound Skin Appearance) Localized Edema Assessed, ,Scarring Scarring -Moisture (Anna-wound Skin Appearance) No Abnormality Assessed,Dry/ Scaly -Color (Anna-wound Skin Appearance) No Abnormality Assessed -Temperature (Anna-wound Skin No Abnormality No Abnormality Appearance) (Pt Warm) (Pt Warm) -Tenderness on Palpation (Anna-wound No No Skin Appearance) -Ulcer Cleansing Soap and Water -Foul Odor after Cleansing No No -Anesthetic Used 4% Lidocaine 5% Lidocaine Solution Gel #1 Left Lat Foot Post Op -Combined with other wound No -Current Size (cm) - Length 0.8 0.6 0.8 -Current Size (cm) - Width 0.7 0.5 1.1 -Current Size (cm) - Depth 0.6 1.1 1.1 -Total Square Cm 0.56 0.30 0.88 -Photo Taken No No No -Epithelialization None Present -Tunneling No -Undermining/Tunneling Yes -Undermining/Tunneling Starts (O'clock 7 7 ) -Undermining/Tunneling Ends (O'clock) 10 1 -Maximum Distance (cm) 1.8 -Maximum Distance #2 (cm) 1.2 -Circular Undermining No -Exudate Amt Medium Medium Medium -Exudate Type Serosanguineous Serosanguineous Serosanguineous -Wound Margin Thickened & Distinct, Distinct, Rolled Under Outline Outline Attached Attached -Granulation Amt Large (67-100%) Large (67-100%) Medium (34-66%) -Granulation Quality [place] Red [place] -Slough/Fibrin Yes -Necrosis Amt Small (1-33%) Small (1-33%) Medium (34-66%) -Necrotic Tissue Type Adherent Slough Adherent Slough Adherent Slough -Structure Exposed N/A N/A -Texture (Anna-wound Skin Appearance) Scarring Assessed,Callus Callus, ,Scarring Localized Edema ,Scarring -Moisture (Anna-wound Skin Appearance) Maceration Assessed, Maceration Maceration -Color (Anna-wound Skin Appearance) No Abnormality Assessed,Palor Rubor -Temperature (Anna-wound Skin No Abnormality No Abnormality No Abnormality Appearance) (Pt Warm) (Pt Warm) (Pt Warm) -Tenderness on Palpation (Anna-wound No No No Skin Appearance) -Ulcer Cleansing Wound Cleanser Soap and Water Soap and Water -Foul Odor after Cleansing No No Yes, Due to Product Use -Anesthetic Used 4% Lidocaine 5% Lidocaine 4% Lidocaine Solution Gel Solution Left Calf (cm) 47 48.8 Left Ankle (cm) 30.5 32 WC - Nurse 2 - General Ulcer CM Notes Start: 08/06/21 11:29 Freq: Status: Active Protocol: Activity Type Activity Date Activity User E-Sign Co-Sign Detail Recorded Client Recorded Date Recorded By Document 08/06/21 12:44 PL [id number] 08/06/21 12:47 PL Document 08/13/21 11:34 JF [id number] 08/13/21 11:41 JF Document 08/20/21 11:10 JF [id number] 08/20/21 11:24 JF 08/06/21 08/13/21 08/20/21 12:44 11:34 11:10 Wound Center Nurse 2 2-left dorsal foot -Time 11:56 11:37 -Correct Patient Yes No -Correct Side, Site, Position Yes No -Correct Procedure Yes No -Procedure Performed Yes No -Type of Procedure Debridement -Clinical Debridement Subcutaneous -Tissue Removed Subcutaneous -Post Debridement (cm) - Length 0.2 0 -Post Debridement (cm) - Width 0.2 0 -Post Debridement (cm) - Depth 0.8 0 -Total Square (Post) (cm) 0.04 0 -Area of Debridement (cm) - Length 0.2 0 -Area of Debridement (cm) - Width 0.2 0 -Total Square (Area) (cm) 0.04 0 -Tunneling No No -Undermining/Tunneling No No -Circular Undermining No No -Wound/Ulcer Outcome Not Healed Healed- Epithelialized -Ulcer Cleansing Rinsed/ Irrigated with Saline -Foul Odor after Cleansing No -Bioengineered Tissue No -Bleeding Controlled with Pressure Pressure -Offloading Yes -Type of Offloading Surgical Shoe -Treatment Response Procedure Procedure Tolerated Well Tolerated Well -Debridement - Subq, 1st 20sq cm No No #1 Left Lat Foot Post Op -Time 11: 11:37 11:12 -Correct Patient Yes Yes Yes -Correct Side, Site, Position Yes Yes Yes -Correct Procedure Yes Yes Yes -Procedure Performed Yes Yes Yes -Type of Procedure Debridement Debridement Debridement -Clinical Debridement Subcutaneous Subcutaneous Subcutaneous -Tissue Removed Subcutaneous Subcutaneous Subcutaneous -Post Debridement (cm) - Length 0.8 2 0.8 -Post Debridement (cm) - Width 0.7 1 1.5 -Post Debridement (cm) - Depth 0 1.8 1.4 -Total Square (Post) (cm) 0.56 2 1.20 -Area of Debridement (cm) - Length 0.8 2 0.8 -Area of Debridement (cm) - Width 0.7 1 1.5 -Total Square (Area) (cm) 0.56 2 1.20 -Tunneling No No No -Undermining/Tunneling No No No -Circular Undermining No No No -Wound/Ulcer Outcome Not Healed Not Healed Not Healed -Ulcer Cleansing Rinsed/ Rinsed/ Rinsed/ Irrigated with Irrigated with Irrigated with Saline Saline Saline -Foul Odor after Cleansing No No No -Bioengineered Tissue Yes No No -Type of Bioengineered Tissue Epifix -Expiration Date 03/02/26 -Product Lot Number [id number] -Percent Used 100 -Bleeding Controlled with Pressure Pressure Pressure -Offloading Yes Yes -Type of Offloading Surgical Shoe Surgical Shoe -Treatment Response Procedure Procedure Procedure Tolerated Well Tolerated Well Tolerated Well -Debridement - Subq, 1st 20sq cm No Yes Yes -Apply Skin Sub - 1st 25 sq cm - Feet 1 -Epifix (per sq cm) 4 Pain Scale: 0-10 Numeric Is Patient Pain Free? Yes Yes - Nurse 3 - General Ulcer D/C NN Start: 08/06/21 11:29 Freq: Status: Active Protocol: Activity Type Activity Date Activity User E-Sign Co-Sign Detail Recorded Client Recorded Date Recorded By Document 08/06/21 12:10 ML [id number] 08/06/21 12:11 ML Document 08/13/21 11:51 [facility] Desktop 08/13/21 11:52 [facility] Document 08/20/21 11:37 DL [id number] 08/20/21 11:39 DL 08/06/21 08/13/21 08/20/21 12:10 11:51 11:37 Wound Care Nurse 3 #1 Left Lat Foot Post Op -Ulcer Cleansing Rinsed/ Rinsed/ Irrigated with Irrigated with Saline Saline -Foul Odor after Cleansing No No -Primary Dressing Applied Other Aquacel AG 4x4 -Other Dressing moist to dry -Primary Dressing Covered/Secured with Dry Gauze & Dry Gauze & Dry Gauze & Roll Gauze, Roll Gauze, Roll Gauze, Secured with Secured with Secured with Tape Tape,Other Tape -Other Covering abd -Aquacel AG 4x4 1 Left -Tubular Bandage Double Layer Single Layer -Size of Tubigrip Used Size F Size E -Size E ($) 1 -Size F ($) 1 -Other applied pts own no size F double layer available today tubi Treatment Response Procedure Procedure Tolerated Well Tolerated Well Pain Scale: 0-10 Numeric Is Patient Pain Free? Yes Yes WC - Visit Discharge Discharge Condition Stable Stable Stable Ambulatory Status Ambulatory Ambulatory Ambulatory Transportation Private Auto Private Auto Private Auto Accompanied by Medication Reconcilliation completed & No provided to patient/care provider Clinical Summary of Care Provided Yes Assessment/Plan Assessment/Plan (1) Chronic ulcer of left foot with fat layer exposed: CODE(S): L97.522 - Non-pressure chronic ulcer of other part of left foot with fat layer exposed (2) Type 2 diabetes mellitus with diabetic polyneuropathy: CODE(S): E11.42 - Type 2 diabetes mellitus with diabetic polyneuropathy (3) Obesity: CODE(S): E66.9 - Obesity, unspecified (4) Left foot pain: CODE(S): M79.672 - Pain in left foot (5) Cellulitis of left foot: CODE(S): L03.116 - Cellulitis of left lower limb (6) 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 Wound is worsening with increase in erythema, edema and new probing to bone. New cultures were obtained today. Also gave prescription for new foot x-ray and lab work. Patient reports having hemoglobin A1c about 2 to 3 months ago of 9.2%. Patient was given prescription for Augmentin which was sent to patient's pharmacy. Will adjust if needed pending culture results. Discussed concern for bone infection now that the wound is now probing to bone and increasing signs of infection. Patient is noted to have offloaded surgical shoe and wheelchair or crutches for offloading patient reports no systemic signs of illness at this time. Culture obtained 07/23/2021 demonstrated staph aureus, strep anginosus, sphingomonas paucimobilis, anaerobic cocci. Patient is also noted to have vascular studies done on 04/29/2021 demonstrating triphasic waveforms to PT and DP bilaterally with mild degree of large vessel disease despite noncompressible vessels. Right TBI was 0.78 and left TBI was 0.47 possibly consistent with small vessel disease. After verbal consent was obtained ulceration was debrided sharply Discussed importance of smoking cessation, blood sugar control, weight management, offloading, proper nutrition, infection control and hygiene to optimize healing potential. Patient hemoglobin A1c was 9.5% on 04/28/2021. Discussed follow-up with primary care provider or frame polisher in order to have better control over his blood sugar. Discussed that this is impacting his healing. 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 Patient was approved for epi fix graft application. Given active infection signs, it was decided to defer graft application this week. Patient reports skin sensitivity to Dakin's. Discussed switching instead to a silver alginate-based dressing and still cleaning this area with the Dakin's solution. If patient continued has skin sensitivity to the Dakin's just wash the area with soap and water instead. Also discussed using iodine instead of Dakin's. Tubigrip was applied. 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 Discussed trying to elevate as much as possible. All questions answered. Reviewed concerning signs and symptoms to watch out for and to contact office if any of these present or go to the emergency room. Patient is to follow-up in 1 week. Patient is aware that this was my last week at the wound care center. Patient understands he will have continued care with another physician here. Patient is to contact either the wound care center or the foot and ankle Center if any concerning signs and symptoms present himself. I will follow up with the labs and cultures obtained today but they will likely not be finalized until after I no longer have access to the system. Will communicate this with the physician taking over patient's care to continue to follow up on these results. Patient is aware of this and is to contact our office if for some reason there is not a smooth transition in his care. patient understands and is agreeable to treatment plan. Discussed following up with Dr. Ramos given worsening of his wound. This note was generated with [employer] software. It may contain incorrect words, spelling, and punctuation that were not noted in checking the note before signing. The problems addressed require a low medical decision making level which includes two or more minor problems, a stable chronic illness, or an acute uncomplicated illness or injury.
[2021-08-28 11:42] VITALS: PULSE 78; RESP 16; TEMP 36.6; BMI 35.6
--- NOTE | 2021-08-28 11:45 | BONBX_PTH ---
PATIENT: GO VANESSA LOC: U#:[id number] AGE/SX: 50/M ROOM: RE08/28/[address]: Dr. Simin Ramos DPM : 1970 BED: DIS: 09/01/2021 SPEC #: [id number] RECD: 08/28/21 12:44 STATUS: ANA REQ #: [id number] HAMLET: 08/28/21 11:[address]: Simin Ramos DEPT: SURGICAL PATHOLOGY RECD BY: Ida Fulton ENTERED: 08/28/21 15:18 SP TYPE: Bone OTHR DR: MD Dr. Alis Goyal, TRA [place] Tissues: Left foot Procedures: Decalcification bone/plaque Surgery Specimen Level V HEADER OPERATION: Bone biopsy left foot PRE-OP DIAGNOSIS: Chronic ulcer/osteomyelitis TISSUE SUBMITTED: Left foot fifth metatarsal MICROSCOPIC DIAGNOSIS Left fifth metatarsal bone, biopsy: Acute osteomyelitis. AM:ilana 08/29/2021 MICROSCOPIC DESCRIPTION Slides are reviewed. GROSS DESCRIPTION Received in fixative is one container labeled with the patient's name and designated left foot bone. The specimen consists of a fragment of bone measuring 0.5 x 0.5 x 0.3 cm. The entire specimen is submitted in one cassette after decalcification. / SJ:ilana 08/28/21 TC:2 CPT: 26961, 71867
[2021-08-28 11:48] VITALS: BP 144/78; PULSE 78; RESP 16; TEMP 36.6; BMI 35.6
--- NOTE | 2021-08-28 12:15 | PCM.WC.PN ---
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 Patient has significant medical history including diabetes, hypertension, coronary artery disease, anemia, aortic martinez artery bypass grafting. Patient underwent previous surgical debridement of the wound with Dr. Gerber on 04/28/2021. He is progressing well with the wound healing center under comprehensive management and even underwent serial applications of advanced wound healing product, epi fix. Recently however this has deteriorated now extending down to the bone level. He is being treated for presumed osteomyelitis and has an MRI scheduled for next week. He was started on Augmentin and Bactrim and denies diarrhea or other known side effects. He is scheduled to see infectious disease physician, Dr. Arrieta this afternoon. He has been placing full weight on this in a surgical shoe. He is with his . He changes the dressing with Aquacel Ag due to previous Dakin's solution intolerance. He does peripherally wash the wound with Dakin's still and tolerates that okay. Progress of Wound: Stable with recent setting deteriorization Objective Data Objective Data Vital Signs: Vital Signs Temp Pulse Resp BP 97.8 F 78 16 144/78 H 08/28/21 11:48 08/28/21 11:48 08/28/21 11:48 08/28/21 11:48 Weight: 122.47 kg Body Mass Index (BMI) 35.6 Lab / Micro Data Result Diagrams: 08/20/21 12:07 08/20/21 12:07 Micro: Microbiology 08/20/21 Unknown Wound Abcess - Left Foot Gram Stain - Final 08/20/21 Unknown Wound Abcess - Left Foot Wound Culture - Final Proteus vulgaris Strep anginosus 08/20/21 Unknown Wound Abcess - Left Foot Anaerobic Culture - Final No anaerobic bacteria isolated. Physical Exam Narrative Skin Wound Narrative: ulcers noted to left lateral foot down to the level of bone with loose jean of bone emerging from the wound today. No malodor, purulence, fluctuation, crepitus. There is resolved erythema compared to prior chart review. Bone is soft, martinez and discolored corresponding with the fifth metatarsal at prior metatarsal head resection site. Skin is atrophic and hairless. Edema noted to the left lower extremity VASC Pulses are palpable 2 out of 4. Capillary refill time is less than 2 seconds to digits. MSK Muscle strength 5 out of 5 for all pedal groups. NEURO Minor decrease in epicritic sensation noted. Patient also noted to be hypersensitive which is easily tickled especially to plantar foot. Debridement Note Debridement Note Wound debrided: plantar and lateral left foot Wound Grade/Stage: 3 Type of Debridement: Excisional debridement Anesthesia Used: 4% Lidocaine Solution Depth: in the subcutaneous layer Percentage of wound debrided: 100 Instrument Used: #15 blade Tissue Removed: fibrous, devitalized subcutaneous, biofilm, slough Severity: Fat Layer Exposed Amount of bleeding with debridement: Mild Bleeding Controlled with: Pressure Patient tolerated procedure: Patient tolerated procedure well Post-Debridement Measurements and Additional Note: Post-Debridement Measurements/Treatment - Nurse 1 - General Ulcer Assessment Start: 08/06/21 11:29 Freq: Status: Active Protocol: WC.LOWEXT Activity Type Activity Date Activity User E-Sign Co-Sign Detail Recorded Client Recorded Date Recorded By Document 08/06/21 11:29 DL [id number] 08/06/21 11:40 DL Document 08/13/21 11:19 DL Desktop 08/13/21 11:26 DL Document 08/20/21 10:55 DL Desktop 08/20/21 11:00 DL Document 08/28/21 11:42 ML [id number] 08/28/21 11:45 ML Document 08/28/21 11:48 ML [id number] 08/28/21 11:50 ML 08/06/21 08/13/21 08/20/21 11:29 11:19 10:55 - Today's Visit Information Type of service Follow-up Visit Follow-up Visit Follow-up Visit (Physician/[employer]PER[employer]OR (Physician/[employer] SUPERVISOR (Physician/[employer] SUPERVISOR ) ) ) Arrival Mode Ambulatory Ambulatory Cane Transfer Assistance None None None Patient Identification Verified (Name & Yes Yes ) Patient Requires Transmission-Based No No No Precautions Safety Precautions Height and Weight Body Mass Index (BMI) 35.6 35.6 35.6 BMI Classification Obese Obese Obese Vital Signs Temperature (97.8 F-99.1 F) 97.8 F 97.8 F 98.3 F Temperature Source Temporal Temporal Temporal Pulse Rate (60-100) 75 77 76 Pulse Location Monitor Monitor Monitor Respiratory Rate (12-18) 20 H 18 20 H Respiratory rate source Observation Observation Observation Blood Pressure (90/60-120/80) 145/79 H 163/84 H 139/74 H Blood Pressure Mean (mm Hg) 101 110 95 Source Monitor Monitor Monitor Position Blood Pressure Location History Since Last Visit- (Skip if this is Patient's initial visit) Have you changed medications since your No No No last visit? Any new allergies or adverse reactions No No No Had a fall/change in ADL's that may No No No increase risk of falls Signs or symptoms of abuse and/or No No No neglect since last visit Have you been in the hospital since your No No No last visit? Has dressing in place as prescribed Yes Yes Yes Has compression in place as prescribed Yes Yes Has offloadiing in place as prescribed Yes Yes Yes Experienced any changes in pain level or No No No management Left Footwear Surgical Shoe Surgical Shoe with pressure with pressure relief insole relief insole Right Footwear Regular Shoe Pain Scale: 0-10 Numeric Is Patient Pain Free? Yes Yes Yes 08/28/21 08/28/21 11:42 11:48 WC - Today's Visit Information Type of service Follow-up Visit Follow-up Visit (Physician/[employer]PERVISOR (Physician/[employer] SUPERVISOR ) ) Arrival Mode Ambulatory Ambulatory Transfer Assistance None Patient Identification Verified (Name & Yes Yes ) Patient Requires Transmission-Based No No Precautions Safety Precautions NA NA Height and Weight Body Mass Index (BMI) 35.6 35.6 BMI Classification Obese Obese Vital Signs Temperature (97.8 F-99.1 F) 97.8 F 97.8 F Temperature Source Temporal Temporal Pulse Rate (60-100) 78 78 Pulse Location Monitor Monitor Respiratory Rate (12-18) 16 16 Respiratory rate source Observation Observation Blood Pressure (90/60-120/80) 144/78 H Blood Pressure Mean (mm Hg) 100 Source Monitor Position Sitting Blood Pressure Location Left Arm History Since Last Visit- (Skip if this is Patient's initial visit) Have you changed medications since your No last visit? Any new allergies or adverse reactions No Had a fall/change in ADL's that may No increase risk of falls Signs or symptoms of abuse and/or No neglect since last visit Have you been in the hospital since your No last visit? Has dressing in place as prescribed Yes Has compression in place as prescribed Yes Has offloadiing in place as prescribed N/A Experienced any changes in pain level or No management Left Footwear Regular Shoe Right Footwear Surgical Shoe with pressure relief insole Pain Scale: 0-10 Numeric Is Patient Pain Free? Yes WC - Nurse 1 - General Ulcer Measurement Start: 08/06/21 11:29 Freq: Status: Active Protocol: Activity Type Activity Date Activity User E-Sign Co-Sign Detail Recorded Client Recorded Date Recorded By Document 08/06/21 11:29 DL [id number] 08/06/21 11:40 DL Document 08/13/21 11:19 DL Desktop 08/13/21 11:26 DL Document 08/20/21 10:55 DL Desktop 08/20/21 11:00 DL Document 08/28/21 11:48 ML [id number] 08/28/21 11:50 ML 08/06/21 08/13/21 08/20/21 11:29 11:19 10:55 Wound Center Nurse 1 2-left dorsal foot -Combined with other wound No -Current Size (cm) - Length 0.2 0.1 -Current Size (cm) - Width 0.2 0.1 -Current Size (cm) - Depth 0.8 0.1 -Total Square Cm 0.04 0.01 -Photo Taken No No -Tunneling No -Undermining/Tunneling No -Circular Undermining No -Exudate Amt Small None Present -Exudate Type Serosanguineous -Wound Margin Distinct, Outline Attached -Granulation Amt Large (67-100%) -Granulation Quality [place] -Necrosis Amt None Present (0 %) -Structure Exposed N/A -Texture (Anna-wound Skin Appearance) Localized Edema Assessed, ,Scarring Scarring -Moisture (Anna-wound Skin Appearance) No Abnormality Assessed,Dry/ Scaly -Color (Anna-wound Skin Appearance) No Abnormality Assessed -Temperature (Anna-wound Skin No Abnormality No Abnormality Appearance) (Pt Warm) (Pt Warm) -Tenderness on Palpation (Anna-wound No No Skin Appearance) -Ulcer Cleansing Soap and Water -Foul Odor after Cleansing No No -Anesthetic Used 4% Lidocaine 5% Lidocaine Solution Gel #1 Left Lat Foot Post Op -Combined with other wound No -Current Size (cm) - Length 0.8 0.6 0.8 -Current Size (cm) - Width 0.7 0.5 1.1 -Current Size (cm) - Depth 0.6 1.1 1.1 -Total Square Cm 0.56 0.30 0.88 -Photo Taken No No No -Epithelialization None Present -Tunneling No -Undermining/Tunneling Yes -Undermining/Tunneling Starts (O'clock 7 7 ) -Undermining/Tunneling Ends (O'clock) 10 1 -Maximum Distance (cm) 1.8 -Maximum Distance #2 (cm) 1.2 -Circular Undermining No -Exudate Amt Medium Medium Medium -Exudate Type Serosanguineous Serosanguineous Serosanguineous -Wound Margin Thickened & Distinct, Distinct, Rolled Under Outline Outline Attached Attached -Granulation Amt Large (67-100%) Large (67-100%) Medium (34-66%) -Granulation Quality [place] Red [place] -Slough/Fibrin Yes -Necrosis Amt Small (1-33%) Small (1-33%) Medium (34-66%) -Necrotic Tissue Type Adherent Slough Adherent Slough Adherent Slough -Structure Exposed N/A N/A -Texture (Anna-wound Skin Appearance) Scarring Assessed,Callus Callus, ,Scarring Localized Edema ,Scarring -Moisture (Anna-wound Skin Appearance) Maceration Assessed, Maceration Maceration -Color (Anna-wound Skin Appearance) No Abnormality Assessed,Palor Rubor -Temperature (Anna-wound Skin No Abnormality No Abnormality No Abnormality Appearance) (Pt Warm) (Pt Warm) (Pt Warm) -Tenderness on Palpation (Anna-wound No No No Skin Appearance) -Ulcer Cleansing Wound Cleanser Soap and Water Soap and Water -Foul Odor after Cleansing No No Yes, Due to Product Use -Anesthetic Used 4% Lidocaine 5% Lidocaine 4% Lidocaine Solution Gel Solution Left Calf (cm) 47 48.8 Left Ankle (cm) 30.5 32 08/28/21 11:48 Wound Center Nurse 1 2-left dorsal foot -Combined with other wound -Current Size (cm) - Length -Current Size (cm) - Width -Current Size (cm) - Depth -Total Square Cm -Photo Taken -Tunneling -Undermining/Tunneling -Circular Undermining -Exudate Amt -Exudate Type -Wound Margin -Granulation Amt -Granulation Quality -Necrosis Amt -Structure Exposed -Texture (Anna-wound Skin Appearance) -Moisture (Anna-wound Skin Appearance) -Color (Anna-wound Skin Appearance) -Temperature (Anna-wound Skin Appearance) -Tenderness on Palpation (Anna-wound Skin Appearance) -Ulcer Cleansing -Foul Odor after Cleansing -Anesthetic Used #1 Left Lat Foot Post Op -Combined with other wound -Current Size (cm) - Length 0.8 -Current Size (cm) - Width 1.5 -Current Size (cm) - Depth 3 -Total Square Cm 1.20 -Photo Taken -Epithelialization -Tunneling -Undermining/Tunneling -Undermining/Tunneling Starts (O'clock ) -Undermining/Tunneling Ends (O'clock) -Maximum Distance (cm) -Maximum Distance #2 (cm) -Circular Undermining -Exudate Amt Large -Exudate Type Serosanguineous -Wound Margin Distinct, Outline Attached -Granulation Amt Medium (34-66%) -Granulation Quality -Slough/Fibrin Yes -Necrosis Amt Medium (34-66%) -Necrotic Tissue Type Adherent Slough -Structure Exposed -Texture (Anna-wound Skin Appearance) Assessed -Moisture (Anna-wound Skin Appearance) Maceration -Color (Anna-wound Skin Appearance) Assessed -Temperature (Anna-wound Skin No Abnormality Appearance) (Pt Warm) -Tenderness on Palpation (Anna-wound Yes Skin Appearance) -Ulcer Cleansing Soap and Water -Foul Odor after Cleansing No -Anesthetic Used 5% Lidocaine Gel Left Calf (cm) Left Ankle (cm) WC - Nurse 2 - General Ulcer CM Notes Start: 08/06/21 11:29 Freq: Status: Active Protocol: Activity Type Activity Date Activity User E-Sign Co-Sign Detail Recorded Client Recorded Date Recorded By Document 08/06/21 12:44 PL [id number] 08/06/21 12:47 PL Document 08/13/21 11:34 JF [id number] 08/13/21 11:41 JF Document 08/20/21 11:10 JF [id number] 08/20/21 11:24 JF Document 08/28/21 12:10 JF [id number] 08/28/21 12:14 08/06/21 08/13/21 08/20/21 12:44 11:34 11:10 Wound Center Nurse 2 2-left dorsal foot -Time 11:56 11:37 -Correct Patient Yes No -Correct Side, Site, Position Yes No -Correct Procedure Yes No -Procedure Performed Yes No -Type of Procedure Debridement -Clinical Debridement Subcutaneous -Tissue Removed Subcutaneous -Post Debridement (cm) - Length 0.2 0 -Post Debridement (cm) - Width 0.2 0 -Post Debridement (cm) - Depth 0.8 0 -Total Square (Post) (cm) 0.04 0 -Area of Debridement (cm) - Length 0.2 0 -Area of Debridement (cm) - Width 0.2 0 -Total Square (Area) (cm) 0.04 0 -Tunneling No No -Undermining/Tunneling No No -Circular Undermining No No -Wound/Ulcer Outcome Not Healed Healed- Epithelialized -Ulcer Cleansing Rinsed/ Irrigated with Saline -Foul Odor after Cleansing No -Bioengineered Tissue No -Bleeding Controlled with Pressure Pressure -Offloading Yes -Type of Offloading Surgical Shoe -Treatment Response Procedure Procedure Tolerated Well Tolerated Well -Debridement - Subq, 1st 20sq cm No No #1 Left Lat Foot Post Op -Time 11:56 11:37 11:12 -Correct Patient Yes Yes Yes -Correct Side, Site, Position Yes Yes Yes -Correct Procedure Yes Yes Yes -Procedure Performed Yes Yes Yes -Type of Procedure Debridement Debridement Debridement -Clinical Debridement Subcutaneous Subcutaneous Subcutaneous -Tissue Removed Subcutaneous Subcutaneous Subcutaneous -Post Debridement (cm) - Length 0.8 2 0.8 -Post Debridement (cm) - Width 0.7 1 1.5 -Post Debridement (cm) - Depth 0 1.8 1.4 -Total Square (Post) (cm) 0.56 2 1.20 -Area of Debridement (cm) - Length 0.8 2 0.8 -Area of Debridement (cm) - Width 0.7 1 1.5 -Total Square (Area) (cm) 0.56 2 1.20 -Tunneling No No No -Undermining/Tunneling No No No -Circular Undermining No No No -Wound/Ulcer Outcome Not Healed Not Healed Not Healed -Ulcer Cleansing Rinsed/ Rinsed/ Rinsed/ Irrigated with Irrigated with Irrigated with Saline Saline Saline -Foul Odor after Cleansing No No No -Bioengineered Tissue Yes No No -Type of Bioengineered Tissue Epifix -Expiration Date 03/02/26 -Product Lot Number [id number] -Percent Used 100 -Bleeding Controlled with Pressure Pressure Pressure -Offloading Yes Yes -Type of Offloading Surgical Shoe Surgical Shoe -Treatment Response Procedure Procedure Procedure Tolerated Well Tolerated Well Tolerated Well -Debridement - Subq, 1st 20sq cm No Yes Yes -Debridement - Bone, 1st 20sq cm -Apply Skin Sub - 1st 25 sq cm - Feet 1 -Epifix (per sq cm) 4 Pain Scale: 0-10 Numeric Is Patient Pain Free? Yes Yes 08/28/21 12:10 Wound Center Nurse 2 2-left dorsal foot -Time -Correct Patient -Correct Side, Site, Position -Correct Procedure -Procedure Performed -Type of Procedure -Clinical Debridement -Tissue Removed -Post Debridement (cm) - Length -Post Debridement (cm) - Width -Post Debridement (cm) - Depth -Total Square (Post) (cm) -Area of Debridement (cm) - Length -Area of Debridement (cm) - Width -Total Square (Area) (cm) -Tunneling -Undermining/Tunneling -Circular Undermining -Wound/Ulcer Outcome -Ulcer Cleansing -Foul Odor after Cleansing -Bioengineered Tissue -Bleeding Controlled with -Offloading -Type of Offloading -Treatment Response -Debridement - Subq, 1st 20sq cm #1 Left Lat Foot Post Op -Time 12:12 -Correct Patient Yes -Correct Side, Site, Position Yes -Correct Procedure Yes -Procedure Performed Yes -Type of Procedure Debridement -Clinical Debridement Bone -Tissue Removed Tendon -Post Debridement (cm) - Length 1 -Post Debridement (cm) - Width 1.5 -Post Debridement (cm) - Depth 2.3 -Total Square (Post) (cm) 1.5 -Area of Debridement (cm) - Length 1 -Area of Debridement (cm) - Width 1.5 -Total Square (Area) (cm) 1.5 -Tunneling No -Undermining/Tunneling No -Circular Undermining No -Wound/Ulcer Outcome Not Healed -Ulcer Cleansing Rinsed/ Irrigated with Saline -Foul Odor after Cleansing No -Bioengineered Tissue No -Type of Bioengineered Tissue -Expiration Date -Product Lot Number -Percent Used -Bleeding Controlled with Pressure -Offloading Yes -Type of Offloading Surgical Shoe -Treatment Response Procedure Tolerated Well -Debridement - Subq, 1st 20sq cm -Debridement - Bone, 1st 20sq cm Yes -Apply Skin Sub - 1st 25 sq cm - Feet -Epifix (per sq cm) Pain Scale: 0-10 Numeric Is Patient Pain Free? Yes WC - Nurse 3 - General Ulcer D/C NN Start: 08/06/21 11:29 Freq: Status: Active Protocol: Activity Type Activity Date Activity User E-Sign Co-Sign Detail Recorded Client Recorded Date Recorded By Document 08/06/21 12:10 ML [id number] 08/06/21 12:11 ML Document 08/13/21 11:51 BMF Desktop 08/13/21 11:52 BMF Document 08/20/21 11:37 DL [id number] 08/20/21 11:39 DL 08/06/21 08/13/21 08/20/21 12:10 11:51 11:37 Wound Care Nurse 3 #1 Left Lat Foot Post Op -Ulcer Cleansing Rinsed/ Rinsed/ Irrigated with Irrigated with Saline Saline -Foul Odor after Cleansing No No -Primary Dressing Applied Other Aquacel AG 4x4 -Other Dressing moist to dry -Primary Dressing Covered/Secured with Dry Gauze & Dry Gauze & Dry Gauze & Roll Gauze, Roll Gauze, Roll Gauze, Secured with Secured with Secured with Tape Tape,Other Tape -Other Covering abd -Aquacel AG 4x4 1 Left -Tubular Bandage Double Layer Single Layer -Size of Tubigrip Used Size F Size E -Size E ($) 1 -Size F ($) 1 -Other applied pts own no size F double layer available today tubi Treatment Response Procedure Procedure Tolerated Well Tolerated Well Pain Scale: 0-10 Numeric Is Patient Pain Free? Yes Yes - Visit Discharge Discharge Condition Stable Stable Stable Ambulatory Status Ambulatory Ambulatory Ambulatory Transportation Private Auto Private Auto Private Auto Accompanied by Medication Reconcilliation completed & No provided to patient/care provider Clinical Summary of Care Provided Yes Assessment/Plan Assessment/Plan (1) Chronic ulcer of left foot with fat layer exposed: CODE(S): L97.522 - Non-pressure chronic ulcer of other part of left foot with fat layer exposed (2) Type 2 diabetes mellitus with diabetic polyneuropathy: CODE(S): E11.42 - Type 2 diabetes mellitus with diabetic polyneuropathy (3) Obesity: CODE(S): E66.9 - Obesity, unspecified (4) Left foot pain: CODE(S): M79.672 - Pain in left foot (5) Cellulitis of left foot: CODE(S): L03.116 - Cellulitis of left lower limb (6) 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 I reviewed his case via chart review and this included his diagnostic data. Debridement was performed as noted in the clinical nursing panel. Dressing recommendations: To wash limb with antibacterial soap and water. It is okay to wash the inside the wound with Dakin solution. To change daily with Aquacel Ag. Wound is worsening with increase in erythema, edema and new probing to bone note last visit per chart review. New cultures were obtained last week with Proteus and strep. He is on Augmentin and levofloxacin. Bone was debrided and this was sent to both microbiology and pathology this morning. He had x-ray and lab ordered. Reviewed today with progressive osseous changes to the remaining fifth metatarsal. It is noted his prior physician ordered an MRI and that is scheduled for next week. Labs reviewed with white blood cell count 9.8, ESR 37, C-reactive protein 24.9. Patient reports having hemoglobin A1c about 2 to 3 months ago of 9.2%. To follow-up with infectious disease specialist this afternoon to see if additional recommendations are available. Patient is noted to have offloaded surgical shoe and wheelchair or crutches for offloading. Offloading Plastizote liners with pocket cut out was fabricated today. Patient is also noted to have vascular studies done on 04/29/2021 demonstrating triphasic waveforms to PT and DP bilaterally with mild degree of large vessel disease despite noncompressible vessels. Right TBI was 0.78 and left TBI was 0.47 possibly consistent with small vessel disease. Discussed importance of smoking cessation, blood sugar control, weight management, offloading, proper nutrition, infection control and hygiene to optimize healing potential. Tubigrip was applied. 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 Discussed trying to elevate as much as possible. All questions answered. Reviewed concerning signs and symptoms to watch out for and to contact office if any of these present or go to the emergency room. To follow-up with the wound healing center in 1 week. This note was generated with Dragon dictation software. It may contain incorrect words, spelling, and punctuation that were not noted in checking the note before signing. He understands he is at risk for limb loss including amputations and further systemic illness. The medical decision making level is moderate based on data including at least three of the following: review of prior external notes, review of a test, ordering a test, assessment requiring an independent historian. The medical decision making level is moderate. There is noted moderate risk of morbidity after considering this treatment plan and diagnostic data. Considerations were given to prescription management, decisions regarding surgical options, or social determinants of health.
== END 2021-09-01 23:59 ==
LOC: WC 11:30
PROVIDERS: PCP Physician Assistant Medical; Referring Provider Hospitalist; Visit Provider Podiatrist
DX: E11.621 Type 2 diabetes mellitus with foot ulcer (principal); E11.52 Type 2 diabetes mellitus with diabetic peripheral angiopathy with gangrene; I25.10 Atherosclerotic heart disease of native coronary artery without angina pectoris; I10 Essential (primary) hypertension; M79.672 Pain in left foot; E11.42 Type 2 diabetes mellitus with diabetic polyneuropathy; L03.116 Cellulitis of left lower limb; L97.522 Non-pressure chronic ulcer of other part of left foot with fat layer exposed; Z95.1 Presence of aortocoronary bypass graft; I25.2 Old myocardial infarction; Z79.899 Other long term (current) drug therapy; Z79.82 Long term (current) use of aspirin; Z79.84 Long term (current) use of oral hypoglycemic drugs; E66.9 Obesity, unspecified; R26.2 Difficulty in walking, not elsewhere classified
CPT/HCPCS: 11042; 11044; 15275; 36415; 73630; 80053; 85025; 85652; 86140; 87015; 87070; 87075; 87077; 87101; 87116; 87176; 87186; 87205; 87206; 87640; 88305; 88307; 88311; Q4186

== ENCOUNTER → 2021-09-04 07:13 | Outpatient (CLI) | payer BC, MEDICAID, SELFPAY ==
--- NOTE | 2021-09-04 07:17 | MRI_ITS ---
STUDY: MRI LEFT MIDFOOT REASON FOR EXAM: Male, 50 years old. OSTEOMYELITIS LEFT FOOT, LATERAL ULCER, DIABETES, SURGERY ON WOUND 04/2021 TECHNIQUE: Standardized fat and water weighted pulse sequences were obtained in all 3 orthogonal planes. COMPARISON: X-ray dated 08/20/2021. FINDINGS: Extensive lateral ulceration (long axis image 16 series 8). Organizing fluid collection at the lateral ulceration site measuring approximately 2 cm x 1.6 cm (short axis image 18 series 7). Diffuse soft tissue swelling at the forefoot/midfoot. Acute bone destruction at the fifth metatarsal head and fifth proximal phalanx base. No additional regions of acute bone destruction. Reactive bone marrow edema at the fourth metatarsal base, cuboid and second metatarsal bases. Mild navicular cuneiform joint arthrosis. Mild/moderate tarsometatarsal joint arthrosis. Mild/moderate metatarsophalangeal joint arthrosis predominating at the first digit. Mild/moderate joint space narrowing at the digits. No acute fracture line. No acute dislocation. Flexor tendons intact with fifth digit flexor peritendinitis. Extensor tendons intact with diffuse extensor peritendinitis/adjacent swelling. Normal Lisfranc ligament. Mild midfoot/forefoot muscle atrophy. Partial-thickness tear of the inferior lateral most aspect of the plantar fascia. Capsular/ligamentous structures preserved at the first through fourth digits. MRI/Lower Ext/No Jt/w/o IMPRESSION: Acute fifth metatarsal head and fifth proximal base osteomyelitis Extensive lateral ulceration with adjacent small abscess Diffuse extensor peritendinitis and fifth flexor peritendinitis Diffuse soft tissue swelling/cellulitis with mild muscle atrophy Partial inferior lateral plantar fascial tear Osteoarthritic features, as above Electronically Signed: Johann Espinoza DO at 8:51 EDT Tel , Service support ,
--- NOTE | 2021-09-04 12:12 | PCM.WC.PN ---
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 Patient has significant medical history including diabetes, hypertension, coronary artery disease, anemia, aortic martinez artery bypass grafting. Patient underwent previous surgical debridement of the wound with Dr. Gerber on 04/28/2021. He was previously progressing well with the wound healing center under comprehensive management and even underwent serial applications of advanced wound healing product, epi fix. Recently however this has deteriorated now extending down to the bone level. He is being treated for presumed osteomyelitis and has an MRI was obtained earlier today. He was started on Augmentin and Bactrim and denies diarrhea or other known side effects. He did see infectious disease specialist, Dr. Arrieta last week. He has been reducing weight on this in a surgical shoe. He is with his . He changes the dressing with Aquacel Ag due to previous Dakin's solution intolerance. Progress of Wound: stable Objective Data Radiography Diagnostic Testing: Radiology Impression Lower Extremity MRI 09/04/21 07:17 IMPRESSION: Acute fifth metatarsal head and fifth proximal base osteomyelitis Extensive lateral ulceration with adjacent small abscess Diffuse extensor peritendinitis and fifth flexor peritendinitis Diffuse soft tissue swelling/cellulitis with mild muscle atrophy Partial inferior lateral plantar fascial tear Osteoarthritic features, as above Electronically Signed: Johann Espinoza DO at 8:51 EDT Tel , Service support , Physical Exam Narrative Skin Wound Narrative: ulcers noted to left lateral foot down to the level of bone with exposure of bone. No malodor, purulence, fluctuation, crepitus. There is resolved erythema compared to prior chart review. Bone is soft, martinez and discolored corresponding with the fifth metatarsal at prior metatarsal head deteriorated site. Skin is atrophic and hairless. Edema noted to the left lower extremity VASC Pulses are palpable 2 out of 4. Capillary refill time is less than 2 seconds to digits. MSK Muscle strength 5 out of 5 for all pedal groups. NEURO Minor decrease in epicritic sensation noted. Patient also noted to be hypersensitive which is easily tickled especially to plantar foot. Debridement Note Debridement Note Wound debrided: Left foot Wound Grade/Stage: 3 Type of Debridement: Excisional debridement Anesthesia Used: 4% Lidocaine Solution Depth: in the subcutaneous layer Percentage of wound debrided: 100 Instrument Used: #15 blade Tissue Removed: fibrous, devitalized subcutaneous, biofilm, slough Severity: Fat Layer Exposed Amount of bleeding with debridement: Mild Bleeding Controlled with: Pressure Patient tolerated procedure: Patient tolerated procedure well Assessment/Plan Assessment/Plan (1) Chronic ulcer of left foot with fat layer exposed: CODE(S): L97.522 - Non-pressure chronic ulcer of other part of left foot with fat layer exposed (2) Type 2 diabetes mellitus with diabetic polyneuropathy: CODE(S): E11.42 - Type 2 diabetes mellitus with diabetic polyneuropathy (3) Obesity: CODE(S): E66.9 - Obesity, unspecified (4) Left foot pain: CODE(S): M79.672 - Pain in left foot (5) Cellulitis of left foot: CODE(S): L03.116 - Cellulitis of left lower limb (6) 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 I reviewed his case via chart review and this included his diagnostic data. Debridement was performed as noted in the clinical nursing panel. Dressing recommendations: To wash limb with antibacterial soap and water. It is okay to wash the inside the wound with Dakin solution. To change daily with Aquacel Ag. Wound is stabilizing however osteo is apparent. Updated cultures were obtained last week with Proteus and strep. He was on Augmentin and levofloxacin. Bone was debrided and this was sent to both microbiology and pathology last week with acute osteo. ID on consult who now updated continued course of Augmentin only. He had x-ray and lab ordered. Reviewed previously with progressive osseous changes to the remaining fifth metatarsal. It is noted his prior physician ordered an MRI and that was completed earlier today. This was reviewed after clinic with osteomyelitis apparent to the remaining fifth metatarsal and proximal phalanx base which are adjacent to the deep ulcer site. Labs reviewed with white blood cell count 9.8, ESR 37, C-reactive protein 24.9. Patient reports having hemoglobin A1c about 2 to 3 months ago of 9.2%. To follow-up with infectious disease specialist this afternoon to see if additional recommendations are available. Patient is noted to have offloaded surgical shoe and wheelchair or crutches for offloading. Offloading Plastizote liners with pocket cut out was fabricated today. Compliance encouraged. Patient is also noted to have vascular studies done on 04/29/2021 demonstrating triphasic waveforms to PT and DP bilaterally with mild degree of large vessel disease despite noncompressible vessels. Right TBI was 0.78 and left TBI was 0.47 possibly consistent with small vessel disease. Discussed importance of smoking cessation, blood sugar control, weight management, offloading, proper nutrition, infection control and hygiene to optimize healing potential. Tubigrip was applied. 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 Discussed trying to elevate as much as possible. All questions answered. Reviewed concerning signs and symptoms to watch out for and to contact office if any of these present or go to the emergency room. To follow-up with the wound healing center in 1 week. This note was generated with [employer] dictation software. It may contain incorrect words, spelling, and punctuation that were not noted in checking the note before signing. He understands he is at risk for limb loss including amputations and further systemic illness. The medical decision making level is moderate based on data including at least three of the following: review of prior external notes, review of a test, ordering a test, assessment requiring an independent historian. The medical decision making level is moderate. There is noted moderate risk of morbidity after considering this treatment plan and diagnostic data. Considerations were given to prescription management, decisions regarding surgical options, or social determinants of health.
== END ==
PROVIDERS: PCP Physician Assistant Medical; Referring Provider Podiatrist Foot & Ankle Surgery; Visit Provider Podiatrist Foot & Ankle Surgery
DX: M86.172 Other acute osteomyelitis, left ankle and foot (principal); L97.524 Non-pressure chronic ulcer of other part of left foot with necrosis of bone; E11.42 Type 2 diabetes mellitus with diabetic polyneuropathy
CPT/HCPCS: 73718

== ENCOUNTER 2021-09-25 11:30 | Outpatient (RCR) | payer BC, MEDICAID, SELFPAY ==
[2021-09-02 00:11] VITALS: BP 144/78; PULSE 78; RESP 16; TEMP 36.6; BMI 35.6
[2021-09-04 11:34] VITALS: BP 132/79; PULSE 79; RESP 18; TEMP 36.1; BMI 35.6
[2021-09-11 15:19] VITALS: BP 143/75; PULSE 88; RESP 18; TEMP 36.3; BMI 35.6
--- NOTE | 2021-09-11 15:59 | PCM.WC.PN ---
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 Patient has significant medical history including diabetes, hypertension, coronary artery disease, anemia, aortic martinez artery bypass grafting. Patient underwent previous surgical debridement of the wound with Dr. Gerber on 04/28/2021. He was previously progressing well with the wound healing center under comprehensive management and even underwent serial applications of advanced wound healing product, epi fix. Recently however this has deteriorated now extending down to the bone level. He is being treated for presumed osteomyelitis and has an MRI was completed previously. He is under care of infectious disease specialist, Dr. Arrieta. He has been reducing weight on this in a surgical shoe. He is with his . He changes the dressing with Aquacel Ag due to previous Dakin's solution intolerance. Progress of Wound: stable Objective Data Objective Data Vital Signs: Vital Signs Temp Pulse Resp BP 97.4 F L 88 18 143/75 H 09/11/21 15:19 09/11/21 15:19 09/11/21 15:19 09/11/21 15:19 Oxygen Delivery Method Room Air Weight: 122.47 kg Body Mass Index (BMI) 35.6 Physical Exam Narrative Skin Wound Narrative: ulcers noted to left lateral foot down to the level of bone with exposure of bone. No malodor, purulence, fluctuation, crepitus. There is resolved erythema compared to prior chart review. Bone is soft, martinez and discolored corresponding with the fifth metatarsal at prior metatarsal head deteriorated site. Skin is atrophic and hairless. Edema noted to the left lower extremity VASC Pulses are palpable 2 out of 4. Capillary refill time is less than 2 seconds to digits. MSK Muscle strength 5 out of 5 for all pedal groups. NEURO Minor decrease in epicritic sensation noted. Patient also noted to be hypersensitive which is easily tickled especially to plantar foot. Debridement Note Debridement Note Wound debrided: left foot Wound Grade/Stage: 3 Type of Debridement: Excisional debridement Anesthesia Used: 4% Lidocaine Solution Depth: in the subcutaneous layer Percentage of wound debrided: 100 Instrument Used: #15 blade Tissue Removed: fibrous, devitalized subcutaneous, biofilm, slough Severity: Fat Layer Exposed Amount of bleeding with debridement: Mild Bleeding Controlled with: Pressure Patient tolerated procedure: Patient tolerated procedure well Post-Debridement Measurements and Additional Note: Post-Debridement Measurements/Treatment - Nurse 1 - General Ulcer Assessment Start: 09/04/21 11:34 Freq: Status: Active Protocol: MARILYN Activity Type Activity Date Activity User E-Sign Co-Sign Detail Recorded Client Recorded Date Recorded By Document 09/04/21 11:34 OR [id number] 09/04/21 11:46 MT Document 09/11/21 15:19 [facility] [id number] 09/11/21 15:24 [facility] 09/04/21 09/11/21 11:34 15:19 WC - Today's Visit Information Type of service Follow-up Visit Follow-up Visit (Physician/DEPUTY CHIEF SHERIFF (Physician/DEPUTY CHIEF SHERIFF ) ) Arrival Mode Ambulatory Ambulatory Transfer Assistance None Accompanied by Patient Identification Verified (Name & Yes ) Height and Weight Body Mass Index (BMI) 35.6 35.6 BMI Classification Obese Obese Vital Signs Temperature (97.8 F-99.1 F) 97 F L 97.4 F L Temperature Source Temporal Temporal Pulse Rate (60-100) 79 88 Pulse Location Monitor Monitor Respiratory Rate (12-18) 18 18 Respiratory rate source Observation Observation Oxygen Delivery Method Room Air Room Air Blood Pressure (90/60-120/80) 132/79 H 143/75 H Blood Pressure Mean (mm Hg) 96 97 Source Monitor Monitor Position Sitting Sitting Blood Pressure Location Left Arm History Since Last Visit- (Skip if this is Patient's initial visit) Have you changed medications since your No last visit? Any new allergies or adverse reactions No Had a fall/change in ADL's that may No increase risk of falls Signs or symptoms of abuse and/or No neglect since last visit Have you been in the hospital since your Yes No last visit? Has dressing in place as prescribed Yes Yes Has compression in place as prescribed Yes Yes Has offloadiing in place as prescribed Yes Yes Experienced any changes in pain level or No management Left Footwear Surgical Shoe with pressure relief insole Right Footwear Regular Shoe Pain Scale: 0-10 Numeric Is Patient Pain Free? Yes - Nurse 1 - General Ulcer Measurement Start: 09/04/21 11:34 Freq: Status: Active Protocol: Activity Type Activity Date Activity User E-Sign Co-Sign Detail Recorded Client Recorded Date Recorded By Document 09/04/21 11:34 OR [id number] 09/04/21 11:46 OR Document 09/11/21 15:19 [facility] [id number] 09/11/21 15:24 [facility] 09/04/21 09/11/21 11:34 15:19 Wound Center Nurse 1 #1 Left Lat Foot Post Op -Combined with other wound No -Current Size (cm) - Length 2 1.3 -Current Size (cm) - Width 2.5 0.5 -Current Size (cm) - Depth 0.3 0.4 -Total Square Cm 5.0 0.65 -Photo Taken No -Epithelialization None Present -Tunneling Yes No -Tunneling Position (O'clock) 3 12 -Tunneling Distance (cm) 1.3 1.5 -Undermining/Tunneling No -Circular Undermining No -Exudate Amt Small Medium -Exudate Type Serous Serosanguineous -Wound Margin Thickened & Thickened & Rolled Under Rolled Under -Granulation Amt Large (67-100%) Large (67-100%) -Granulation Quality Pale,[place] -Slough/Fibrin No Yes -Necrosis Amt Small (1-33%) -Necrotic Tissue Type Adherent Slough -Texture (Anna-wound Skin Appearance) Assessed Assessed,Callus ,Localized Edema,Scarring -Moisture (Anna-wound Skin Appearance) Assessed Assessed,Dry/ Scaly -Color (Anna-wound Skin Appearance) Assessed Assessed, Erythema -Temperature (Anna-wound Skin No Abnormality No Abnormality Appearance) (Pt Warm) (Pt Warm) -Tenderness on Palpation (Anna-wound No Yes Skin Appearance) -Ulcer Cleansing Rinsed/ Rinsed/ Irrigated with Irrigated with Saline Saline -Foul Odor after Cleansing No No -Anesthetic Used 5% Lidocaine 5% Lidocaine Gel Gel Left Calf (cm) 48.8 Left Ankle (cm) 32 WC - Nurse 2 - General Ulcer CM Notes Start: 09/04/21 11:34 Freq: Status: Active Protocol: Activity Type Activity Date Activity User E-Sign Co-Sign Detail Recorded Client Recorded Date Recorded By Document 09/04/21 13:15 GABBI [id number] 09/04/21 13:17 Document 09/11/21 15:33 JF [id number] 09/11/21 15:38 09/04/21 09/11/21 13:15 15:33 Wound Center Nurse 2 #1 Left Lat Foot Post Op -Time 13:16 15:33 -Correct Patient Yes Yes -Correct Side, Site, Position Yes Yes -Correct Procedure Yes Yes -Procedure Performed Yes Yes -Type of Procedure Debridement Debridement -Clinical Debridement Subcutaneous Subcutaneous -Tissue Removed Subcutaneous Subcutaneous -Post Debridement (cm) - Length 2.1 1.8 -Post Debridement (cm) - Width 2.5 1.6 -Post Debridement (cm) - Depth 0.3 0.3 -Total Square (Post) (cm) 5.25 2.88 -Area of Debridement (cm) - Length 2.1 1.8 -Area of Debridement (cm) - Width 2.5 1.6 -Total Square (Area) (cm) 5.25 2.88 -Tunneling No No -Undermining/Tunneling No No -Circular Undermining No No -Wound/Ulcer Outcome Not Healed Not Healed -Ulcer Cleansing Rinsed/ Rinsed/ Irrigated with Irrigated with Saline Saline -Foul Odor after Cleansing No -Bioengineered Tissue No No -Bleeding Controlled with Pressure Pressure -Offloading Yes Yes -Type of Offloading Surgical Shoe Surgical Shoe -Treatment Response Procedure Procedure Tolerated Well Tolerated Well -Debridement - Subq, 1st 20sq cm Yes Yes Pain Scale: 0-10 Numeric Is Patient Pain Free? Yes Yes - Nurse 3 - General Ulcer D/C NN Start: 09/04/21 11:34 Freq: Status: Active Protocol: Activity Type Activity Date Activity User E-Sign Co-Sign Detail Recorded Client Recorded Date Recorded By Document 09/04/21 12:22 RB [id number] 09/04/21 12:23 RB Document 09/11/21 15:41 RB Desktop 09/11/21 15:42 09/04/21 09/11/21 12:22 15:41 Wound Care Nurse 3 #1 Left Lat Foot Post Op -Ulcer Cleansing Rinsed/ Irrigated with Saline -Primary Dressing Applied Aquacel AG 2x2 Aquacel AG 4x4 -Other Dressing abd -Primary Dressing Covered/Secured with Dry Gauze,Dry Dry Gauze,Dry Gauze & Roll Gauze & Roll Gauze,Secured Gauze,Secured with Tape with Tape -Aquacel AG 4x4 1 -Aquacel AG 2x2 1 Treatment Response Procedure Procedure Tolerated Well Tolerated Well Pain Scale: 0-10 Numeric Is Patient Pain Free? Yes Yes - Visit Discharge Discharge Condition Stable Stable Ambulatory Status Ambulatory Ambulatory Transportation Private Auto Private Auto Medication Reconcilliation completed & No provided to patient/care provider Clinical Summary of Care Provided Yes Yes Assessment/Plan Assessment/Plan (1) Type 2 diabetes mellitus with diabetic polyneuropathy: CODE(S): E11.42 - Type 2 diabetes mellitus with diabetic polyneuropathy (2) Obesity: CODE(S): E66.9 - Obesity, unspecified (3) Left foot pain: CODE(S): M79.672 - Pain in left foot (4) Cellulitis of left foot: CODE(S): L03.116 - Cellulitis of left lower limb (5) Ulcer of left foot with necrosis of bone: CODE(S): L97.524 - Non-pressure chronic ulcer of other part of left foot with necrosis of bone PLAN: Patient seen and examined with present. I reviewed his case via chart review and this included his diagnostic data. Debridement was performed as noted in the clinical nursing panel. Dressing recommendations: To wash limb with antibacterial soap and water. It is okay to wash the inside the wound with Dakin solution. To change daily with Aquacel Ag. Wound is stabilizing however osteo is apparent. Updated cultures were obtained last week with Proteus and strep. He was on Augmentin and levofloxacin. Bone was debrided and this was sent to both microbiology and pathology with acute osteo. ID on consult who now updated continued course of Augmentin only.To follow up as scheduled. He had x-ray and lab ordered. Reviewed previously with progressive osseous changes to the remaining fifth metatarsal. It is noted his prior physician ordered an MRI and that was completed earlier today. This was reviewed after clinic with osteomyelitis apparent to the remaining fifth metatarsal and proximal phalanx base which are adjacent to the deep ulcer site. Labs reviewed with white blood cell count 9.8, ESR 37, C-reactive protein 24.9. Patient reports having hemoglobin A1c about 2 to 3 months ago of 9.2%. Patient is noted to have offloaded surgical shoe and wheelchair or crutches for offloading. Offloading Plastizote liners with pocket cut out was fabricated today. Compliance encouraged. Patient is also noted to have vascular studies done on 04/29/2021 demonstrating triphasic waveforms to PT and DP bilaterally with mild degree of large vessel disease despite noncompressible vessels. Right TBI was 0.78 and left TBI was 0.47 possibly consistent with small vessel disease. Discussed importance of smoking cessation, blood sugar control, weight management, offloading, proper nutrition, infection control and hygiene to optimize healing potential. Tubigrip was applied. 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 Discussed trying to elevate as much as possible. All questions answered. Reviewed concerning signs and symptoms to watch out for and to contact office if any of these present or go to the emergency room. To follow-up with the wound healing center in 1 week. He is at significant risk of amputation and limb loss due to his uncontrolled diabetes and bone infection status. He elects to proceed forward limb salvage with wound care and antibiotics at this time. This note was generated with [employer] dictation software. It may contain incorrect words, spelling, and punctuation that were not noted in checking the note before signing. He understands he is at risk for limb loss including amputations and further systemic illness. The medical decision making level is limited based on data including the review of prior external notes, review of a prior test, or ordering a test. 20 minutes was spent on this encounter. This included face to face and non face to face care including preparing for the visit, reviewing the history, performing the exam, counseling and providing education to the patient, family, or caregiver, ordering medications/test/ procedures if indicated as documented, communicating with other healthcare providers, documenting information in the medical record, interpreting / sharing this information when indicated as documented, and care coordination.
[2021-09-18 11:43] VITALS: BP 149/84; PULSE 74; TEMP 36.4; BMI 35.6
--- NOTE | 2021-09-18 12:30 | PN.PCM_ITS ---
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 Patient has significant medical history including diabetes, hypertension, coronary artery disease, anemia, aortic martinez artery bypass grafting. Patient underwent previous surgical debridement of the wound with Dr. Gerber on 04/28/2021. He was previously progressing well with the wound healing center under comprehensive management and even underwent serial applications of advanced wound healing product, epi fix. He is being treated for osteomyelitis and has an MRI was completed previously to confirm this diagnosis. He is under care of infectious disease specialist, Dr. Arrieta. He has been reducing weight on this in a surgical shoe and does not use the advised assistive device. He is with his . He changes the dressing with Aquacel Ag due to previous Dakin's solution intolerance. Progress of Wound: Improving quality Objective Data Objective Data Vital Signs: Vital Signs Temp Pulse Resp BP 97.5 F L 74 18 149/84 H 09/18/21 11:43 09/18/21 11:43 09/11/21 15:19 09/18/21 11:43 Oxygen Delivery Method Room Air Weight: 122.47 kg Body Mass Index (BMI) 35.6 Physical Exam Narrative Skin Wound Narrative: ulcers noted to left lateral foot down to the level of bone with exposure of bone. No malodor, purulence, fluctuation, crepitus. There is resolved erythema and no longer visualized bone. Skin is atrophic and hairless. Edema noted to the left lower extremity VASC Pulses are palpable 2 out of 4. Capillary refill time is less than 2 seconds to digits. MSK Muscle strength 5 out of 5 for all pedal groups. NEURO Minor decrease in epicritic sensation noted. Patient also noted to be hypersensitive Debridement Note Debridement Note Wound debrided: left foot Wound Grade/Stage: 3 Type of Debridement: Excisional debridement Anesthesia Used: 4% Lidocaine Solution Depth: in the subcutaneous layer Percentage of wound debrided: 100 Instrument Used: #15 blade Tissue Removed: fibrous, devitalized subcutaneous, biofilm, slough Severity: Fat Layer Exposed Amount of bleeding with debridement: Mild Bleeding Controlled with: Pressure Patient tolerated procedure: Patient tolerated procedure well Post-Debridement Measurements and Additional Note: Post-Debridement Measurements/Treatment WC - Nurse 1 - General Ulcer Assessment Start: 09/04/21 11:34 Freq: Status: Active Protocol: WC.LOWEXT Activity Type Activity Date Activity User E-Sign Co-Sign Detail Recorded Client Recorded Date Recorded By Document 09/04/21 11:34 [place] [id number] 09/04/21 11:46 [place] Document 09/11/21 15:19 [facility] [id number] 09/11/21 15:24 BM Document 09/18/21 11:43 KR [id number] 09/18/21 11:44 KR 09/04/21 09/11/21 09/18/21 11:34 15:19 11:43 - Today's Visit Information Type of service Follow-up Visit Follow-up Visit Follow-up Visit (Physician/MINE SAFETY DIRECTOR (Physician/MINE SAFETY DIRECTOR (Physician/MINE SAFETY DIRECTOR ) ) ) Arrival Mode Ambulatory Ambulatory Ambulatory Transfer Assistance None Accompanied by Patient Identification Verified (Name & Yes Yes ) Height and Weight Body Mass Index (BMI) 35.6 35.6 35.6 BMI Classification Obese Obese Obese Vital Signs Temperature (97.8 F-99.1 F) 97 F L 97.4 F L 97.5 F L Temperature Source Temporal Temporal Temporal Pulse Rate (60-100) 79 88 74 Pulse Location Monitor Monitor Monitor Respiratory Rate (12-18) 18 18 Respiratory rate source Observation Observation Oxygen Delivery Method Room Air Room Air Blood Pressure (90/60-120/80) 132/79 H 143/75 H 149/84 H Blood Pressure Mean (mm Hg) 96 97 105 Source Monitor Monitor Monitor Position Sitting Sitting Sitting Blood Pressure Location Left Arm Right Arm History Since Last Visit- (Skip if this is Patient's initial visit) Have you changed medications since your No No last visit? Any new allergies or adverse reactions No No Had a fall/change in ADL's that may No No increase risk of falls Signs or symptoms of abuse and/or No No neglect since last visit Have you been in the hospital since your Yes No No last visit? Has dressing in place as prescribed Yes Yes Yes Has compression in place as prescribed Yes Yes N/A Has offloadiing in place as prescribed Yes Yes N/A Experienced any changes in pain level or No No management Left Footwear Surgical Shoe Regular Shoe with pressure relief insole Right Footwear Regular Shoe Regular Shoe Pain Scale: 0-10 Numeric Is Patient Pain Free? Yes Yes - Nurse 1 - General Ulcer Measurement Start: 09/04/21 11:34 Freq: Status: Active Protocol: Activity Type Activity Date Activity User E-Sign Co-Sign Detail Recorded Client Recorded Date Recorded By Document 09/04/21 11:34 TX [id number] 09/04/21 11:46 TX Document 09/11/21 15:19 [facility] [id number] 09/11/21 15:24 [facility] Document 09/18/21 11:43 KR [id number] 09/18/21 11:44 KR 09/04/21 09/11/21 09/18/21 11:34 15:19 11:43 Wound Center Nurse 1 #1 Left Lat Foot Post Op -Combined with other wound No -Current Size (cm) - Length 2 1.3 1 -Current Size (cm) - Width 2.5 0.5 0.9 -Current Size (cm) - Depth 0.3 0.4 0.2 -Total Square Cm 5.0 0.65 0.9 -Photo Taken No -Epithelialization None Present -Tunneling Yes No -Tunneling Position (O'clock) 3 12 -Tunneling Distance (cm) 1.3 1.5 -Undermining/Tunneling No -Undermining/Tunneling Starts (O'clock 6 ) -Undermining/Tunneling Ends (O'clock) 12 -Maximum Distance (cm) 0.3 -Circular Undermining No -Exudate Amt Small Medium Small -Exudate Type Serous Serosanguineous Serosanguineous -Wound Margin Thickened & Thickened & Distinct, Rolled Under Rolled Under Outline Attached -Granulation Amt Large (67-100%) Large (67-100%) Medium (34-66%) -Granulation Quality Pale,[place] Red -Slough/Fibrin No Yes -Necrosis Amt Small (1-33%) Medium (34-66%) -Necrotic Tissue Type Adherent Slough Adherent Slough -Texture (Anna-wound Skin Appearance) Assessed Assessed,Callus Assessed, ,Localized Scarring Edema,Scarring -Moisture (Anna-wound Skin Appearance) Assessed Assessed,Dry/ No Abnormality, Scaly Assessed -Color (Anna-wound Skin Appearance) Assessed Assessed, No Abnormality, Erythema Assessed -Temperature (Anna-wound Skin No Abnormality No Abnormality No Abnormality Appearance) (Pt Warm) (Pt Warm) (Pt Warm) -Tenderness on Palpation (Anna-wound No Yes No Skin Appearance) -Ulcer Cleansing Rinsed/ Rinsed/ Rinsed/ Irrigated with Irrigated with Irrigated with Saline Saline Saline -Foul Odor after Cleansing No No No -Anesthetic Used 5% Lidocaine 5% Lidocaine 5% Lidocaine Gel Gel Gel Left Calf (cm) 48.8 Left Ankle (cm) 32 WC - Nurse 2 - General Ulcer CM Notes Start: 09/04/21 11:34 Freq: Status: Active Protocol: Activity Type Activity Date Activity User E-Sign Co-Sign Detail Recorded Client Recorded Date Recorded By Document 09/04/21 13:15 [id number] 09/04/21 13:17 Document 09/11/21 15:33 [id number] 09/11/21 15:38 Document 09/18/21 11:53 [id number] 09/18/21 11:56 09/04/21 09/11/21 09/18/21 13:15 15:33 11:53 Wound Center Nurse 2 #1 Left Lat Foot Post Op -Time 13:16 15:33 11:53 -Correct Patient Yes Yes Yes -Correct Side, Site, Position Yes Yes Yes -Correct Procedure Yes Yes Yes -Procedure Performed Yes Yes Yes -Type of Procedure Debridement Debridement Debridement -Clinical Debridement Subcutaneous Subcutaneous Subcutaneous -Tissue Removed Subcutaneous Subcutaneous Subcutaneous -Post Debridement (cm) - Length 2.1 1.8 1.4 -Post Debridement (cm) - Width 2.5 1.6 1.1 -Post Debridement (cm) - Depth 0.3 0.3 0.6 -Total Square (Post) (cm) 5.25 2.88 1.54 -Area of Debridement (cm) - Length 2.1 1.8 1.4 -Area of Debridement (cm) - Width 2.5 1.6 1.1 -Total Square (Area) (cm) 5.25 2.88 1.54 -Tunneling No No Yes -Tunneling Position (O'clock) 12 -Tunneling Distance (cm) 1.5 -Undermining/Tunneling No No No -Circular Undermining No No No -Wound/Ulcer Outcome Not Healed Not Healed Not Healed -Ulcer Cleansing Rinsed/ Rinsed/ Rinsed/ Irrigated with Irrigated with Irrigated with Saline Saline Saline -Foul Odor after Cleansing No No -Bioengineered Tissue No No No -Bleeding Controlled with Pressure Pressure Pressure -Offloading Yes Yes Yes -Type of Offloading Surgical Shoe Surgical Shoe Surgical Shoe -Treatment Response Procedure Procedure Procedure Tolerated Well Tolerated Well Tolerated Well -Debridement - Subq, 1st 20sq cm Yes Yes Yes Pain Scale: 0-10 Numeric Is Patient Pain Free? Yes Yes Yes - Nurse 3 - General Ulcer D/C NN Start: 09/04/21 11:34 Freq: Status: Active Protocol: Activity Type Activity Date Activity User E-Sign Co-Sign Detail Recorded Client Recorded Date Recorded By Document 09/04/21 12:22 RB [id number] 09/04/21 12:23 RB Document 09/11/21 15:41 RB Desktop 09/11/21 15:42 RB Document 09/18/21 12:07 KR [id number] 09/18/21 12:07 KR 09/04/21 09/11/21 09/18/21 12:22 15:41 12:07 Wound Care Nurse 3 #1 Left Lat Foot Post Op -Ulcer Cleansing Rinsed/ Irrigated with Saline -Primary Dressing Applied Aquacel AG 2x2 Aquacel AG 4x4 Aquacel AG 4x4 -Other Dressing abd -Primary Dressing Covered/Secured with Dry Gauze,Dry Dry Gauze,Dry Dry Gauze, Gauze & Roll Gauze & Roll Secured with Gauze,Secured Gauze,Secured Tape with Tape with Tape -Aquacel AG 4x4 1 1 -Aquacel AG 2x2 1 Treatment Response Procedure Procedure Tolerated Well Tolerated Well Pain Scale: 0-10 Numeric Is Patient Pain Free? Yes Yes Yes - Visit Discharge Discharge Condition Stable Stable Stable Ambulatory Status Ambulatory Ambulatory Ambulatory Transportation Private Auto Private Auto Private Auto Accompanied by Medication Reconcilliation completed & No provided to patient/care provider Clinical Summary of Care Provided Yes Yes Assessment/Plan Assessment/Plan (1) Type 2 diabetes mellitus with diabetic polyneuropathy: CODE(S): E11.42 - Type 2 diabetes mellitus with diabetic polyneuropathy (2) Obesity: CODE(S): E66.9 - Obesity, unspecified (3) Left foot pain: CODE(S): M79.672 - Pain in left foot (4) Cellulitis of left foot: CODE(S): L03.116 - Cellulitis of left lower limb (5) 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 I reviewed his case via chart review and this included his diagnostic data. Debridement was performed as noted in the clinical nursing panel. Dressing recommendations: To wash limb with antibacterial soap and water. It is okay to wash the inside the wound with Dakin solution. To change daily with Aquacel Ag. Wound is stabilizing however osteo is apparent. Updated cultures were obtained last week with Proteus and strep. He was on Augmentin and levofloxacin. Bone was debrided and this was sent to both microbiology and pathology with acute osteo. ID on consult who now updated continued course of Augmentin only.To follow up as scheduled. He had x-ray and lab ordered. Reviewed previously with progressive osseous changes to the remaining fifth metatarsal. It is noted his prior physician ordered an MRI and that was completed earlier today. This was reviewed after clinic with osteomyelitis apparent to the remaining fifth metatarsal and proximal phalanx base which are adjacent to the deep ulcer site. Labs reviewed with white blood cell count 9.8, ESR 37, C-reactive protein 24.9. Patient reports having hemoglobin A1c about 2 to 3 months ago of 9.2%. Patient is noted to have offloaded surgical shoe and wheelchair or crutches for offloading. Offloading Plastizote liners with pocket cut out was fabricated today. Compliance encouraged. Patient is also noted to have vascular studies done on 04/29/2021 demonstrating triphasic waveforms to PT and DP bilaterally with mild degree of large vessel disease despite noncompressible vessels. Right TBI was 0.78 and left TBI was 0.47 possibly consistent with small vessel disease. Vascular surgery referral was previously provided. Discussed importance of smoking cessation, blood sugar control, weight management, offloading, proper nutrition, infection control and hygiene to optimize healing potential. Tubigrip was applied. 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 Discussed trying to elevate as much as possible. All questions answered. Reviewed concerning signs and symptoms to watch out for and to contact office if any of these present or go to the emergency room. To follow-up with the wound healing center in 1 week. He is at significant risk of amputation and limb loss due to his uncontrolled diabetes and bone infection status. He elects to proceed forward limb salvage with wound care and antibiotics at this time. This note was generated with [employer] dictation software. It may contain incorrect words, spelling, and punctuation that were not noted in checking the note before signing. He understands he is at risk for limb loss including amputations and further systemic illness.
[2021-09-25 11:22] VITALS: BP 134/74; PULSE 88; TEMP 36.2; BMI 35.6
--- NOTE | 2021-09-25 11:53 | PN.PCM_ITS ---
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 Patient has significant medical history including diabetes, hypertension, coronary artery disease, anemia, aortic martinez artery bypass grafting. Patient underwent previous surgical debridement of the wound with Dr. Gerber on 04/28/2021. He was previously progressing well with the wound healing center under comprehensive management and even underwent serial applications of advanced wound healing product, epi fix. He is being treated for osteomyelitis and has an MRI was completed previously to confirm this diagnosis. He is under care of infectious disease specialist, Dr. Arrieta. He has been reducing weight on this in a surgical shoe and does not use the advised assistive device with the use of one crutch. He reports his foot does continue to graze on the ground with each step. He is with his . He changes the dressing with Aquacel Ag due to previous Dakin's solution intolerance. Progress of Wound: Improving quality Objective Data Objective Data Vital Signs: Vital Signs Temp Pulse Resp BP 97.2 F L 88 18 134/74 H 09/25/21 11:22 09/25/21 11:22 09/11/21 15:19 09/25/21 11:22 Oxygen Delivery Method Room Air Weight: 122.47 kg Body Mass Index (BMI) 35.6 Physical Exam Narrative Skin Wound Narrative: ulcer noted to left lateral foot down to the level of bone with no longer exposure of bone. The base is granular. No malodor, purulence, fluctuation, crepitus. There is resolved erythema and no longer visualized bone. Skin is atrophic and hairless. Edema noted to the left lower extremity VASC Pulses are palpable 2 out of 4. Capillary refill time is less than 2 seconds to digits. MSK Muscle strength 5 out of 5 for all pedal groups. NEURO Minor decrease in epicritic sensation noted. Patient also noted to be hypersensitive Debridement Note Debridement Note Wound debrided: Left foot Wound Grade/Stage: 3 Type of Debridement: Excisional debridement Anesthesia Used: 4% Lidocaine Solution Depth: in the subcutaneous layer Percentage of wound debrided: 100 Instrument Used: #15 blade Tissue Removed: fibrous, devitalized subcutaneous, biofilm, slough Severity: Fat Layer Exposed Amount of bleeding with debridement: Mild Bleeding Controlled with: Pressure Patient tolerated procedure: Patient tolerated procedure well Post-Debridement Measurements and Additional Note: Post-Debridement Measurements/Treatment WC - Nurse 1 - General Ulcer Assessment Start: 09/04/21 11:34 Freq: Status: Active Protocol: MARILYN Activity Type Activity Date Activity User E-Sign Co-Sign Detail Recorded Client Recorded Date Recorded By Document 09/04/21 11:34 MT [id number] 09/04/21 11:46 MT Document 09/11/21 15:19 BMF [id number] 09/11/21 15:24 BMF Document 09/18/21 11:43 KR [id number] 09/18/21 11:44 KR Document 09/25/21 11:22 AK [id number] 09/25/21 11:25 AK 09/04/21 09/11/21 09/18/21 11:34 15:19 11:43 WC - Today's Visit Information Type of service Follow-up Visit Follow-up Visit Follow-up Visit (Physician/PRETZEL TWISTING MACHINE OPERATOR (Physician/PRETZEL TWISTING MACHINE OPERATOR (Physician/PRETZEL TWISTING MACHINE OPERATOR ) ) ) Arrival Mode Ambulatory Ambulatory Ambulatory Transfer Assistance None Accompanied by Patient Identification Verified (Name & Yes Yes ) Patient Requires Transmission-Based Precautions Safety Precautions Height and Weight Body Mass Index (BMI) 35.6 35.6 35.6 BMI Classification Obese Obese Obese Vital Signs Temperature (97.8 F-99.1 F) 97 F L 97.4 F L 97.5 F L Temperature Source Temporal Temporal Temporal Pulse Rate (60-100) 79 88 74 Pulse Location Monitor Monitor Monitor Respiratory Rate (12-18) 18 18 Respiratory rate source Observation Observation Oxygen Delivery Method Room Air Room Air Blood Pressure (90/60-120/80) 132/79 H 143/75 H 149/84 H Blood Pressure Mean (mm Hg) 96 97 105 Source Monitor Monitor Monitor Position Sitting Sitting Sitting Blood Pressure Location Left Arm Right Arm History Since Last Visit- (Skip if this is Patient's initial visit) Have you changed medications since your No No last visit? Any new allergies or adverse reactions No No Had a fall/change in ADL's that may No No increase risk of falls Signs or symptoms of abuse and/or No No neglect since last visit Have you been in the hospital since your Yes No No last visit? Has dressing in place as prescribed Yes Yes Yes Has compression in place as prescribed Yes Yes N/A Has offloadiing in place as prescribed Yes Yes N/A Experienced any changes in pain level or No No management Left Footwear Surgical Shoe Regular Shoe with pressure relief insole Right Footwear Regular Shoe Regular Shoe Pain Scale: 0-10 Numeric Is Patient Pain Free? Yes Yes 09/25/21 11:22 WC - Today's Visit Information Type of service Follow-up Visit (Physician/PRETZEL TWISTING MACHINE OPERATOR ) Arrival Mode Ambulatory Transfer Assistance Accompanied by Patient Identification Verified (Name & Yes ) Patient Requires Transmission-Based No Precautions Safety Precautions NA Height and Weight Body Mass Index (BMI) 35.6 BMI Classification Obese Vital Signs Temperature (97.8 F-99.1 F) 97.2 F L Temperature Source Temporal Pulse Rate (60-100) 88 Pulse Location Monitor Respiratory Rate (12-18) Respiratory rate source Oxygen Delivery Method Blood Pressure (90/60-120/80) 134/74 H Blood Pressure Mean (mm Hg) 94 Source Monitor Position Blood Pressure Location History Since Last Visit- (Skip if this is Patient's initial visit) Have you changed medications since your No last visit? Any new allergies or adverse reactions No Had a fall/change in ADL's that may No increase risk of falls Signs or symptoms of abuse and/or No neglect since last visit Have you been in the hospital since your No last visit? Has dressing in place as prescribed Yes Has compression in place as prescribed N/A Has offloadiing in place as prescribed Yes Experienced any changes in pain level or No management Left Footwear Regular Shoe Right Footwear Removable Cast Walker/Walking Boot Pain Scale: 0-10 Numeric Is Patient Pain Free? WC - Nurse 1 - General Ulcer Measurement Start: 09/04/21 11:34 Freq: Status: Active Protocol: Activity Type Activity Date Activity User E-Sign Co-Sign Detail Recorded Client Recorded Date Recorded By Document 09/04/21 11:34 MT [id number] 09/04/21 11:46 MT Document 09/11/21 15:19 BMF [id number] 09/11/21 15:24 BMF Document 09/18/21 11:43 KR [id number] 09/18/21 11:44 KR Document 09/25/21 11:22 AK [id number] 09/25/21 11:25 AK 09/04/21 09/11/21 09/18/21 11:34 15:19 11:43 Wound Center Nurse 1 #1 Left Lat Foot Post Op -Combined with other wound No -Current Size (cm) - Length 2 1.3 1 -Current Size (cm) - Width 2.5 0.5 0.9 -Current Size (cm) - Depth 0.3 0.4 0.2 -Total Square Cm 5.0 0.65 0.9 -Photo Taken No -Epithelialization None Present -Tunneling Yes No -Tunneling Position (O'clock) 3 12 -Tunneling Distance (cm) 1.3 1.5 -Undermining/Tunneling No -Undermining/Tunneling Starts (O'clock 6 ) -Undermining/Tunneling Ends (O'clock) 12 -Maximum Distance (cm) 0.3 -Circular Undermining No -Exudate Amt Small Medium Small -Exudate Type Serous Serosanguineous Serosanguineous -Wound Margin Thickened & Thickened & Distinct, Rolled Under Rolled Under Outline Attached -Granulation Amt Large (67-100%) Large (67-100%) Medium (34-66%) -Granulation Quality Pale,[place] Red -Slough/Fibrin No Yes -Necrosis Amt Small (1-33%) Medium (34-66%) -Necrotic Tissue Type Adherent Slough Adherent Slough -Structure Exposed -Texture (Anna-wound Skin Appearance) Assessed Assessed,Callus Assessed, ,Localized Scarring Edema,Scarring -Moisture (Anna-wound Skin Appearance) Assessed Assessed,Dry/ No Abnormality, Scaly Assessed -Color (Anna-wound Skin Appearance) Assessed Assessed, No Abnormality, Erythema Assessed -Temperature (Anna-wound Skin No Abnormality No Abnormality No Abnormality Appearance) (Pt Warm) (Pt Warm) (Pt Warm) -Tenderness on Palpation (Anna-wound No Yes No Skin Appearance) -Ulcer Cleansing Rinsed/ Rinsed/ Rinsed/ Irrigated with Irrigated with Irrigated with Saline Saline Saline -Foul Odor after Cleansing No No No -Anesthetic Used 5% Lidocaine 5% Lidocaine 5% Lidocaine Gel Gel Gel Left Calf (cm) 48.8 Left Ankle (cm) 32 09/25/ 11:22 Wound Center Nurse 1 #1 Left Lat Foot Post Op -Combined with other wound No -Current Size (cm) - Length 1 -Current Size (cm) - Width 1 -Current Size (cm) - Depth 0.5 -Total Square Cm 1 -Photo Taken No -Epithelialization -Tunneling No -Tunneling Position (O'clock) -Tunneling Distance (cm) -Undermining/Tunneling Yes -Undermining/Tunneling Starts (O'clock 1 ) -Undermining/Tunneling Ends (O'clock) 5 -Maximum Distance (cm) 0.7 -Circular Undermining -Exudate Amt Small -Exudate Type Serosanguineous -Wound Margin Thickened & Rolled Under -Granulation Amt Small (1-33%) -Granulation Quality [place] -Slough/Fibrin Yes -Necrosis Amt Small (1-33%) -Necrotic Tissue Type Adherent Slough -Structure Exposed N/A -Texture (Anna-wound Skin Appearance) No Abnormality, Assessed -Moisture (Anna-wound Skin Appearance) Assessed, Maceration -Color (Anna-wound Skin Appearance) No Abnormality, Assessed -Temperature (Anna-wound Skin No Abnormality Appearance) (Pt Warm) -Tenderness on Palpation (Anna-wound No Skin Appearance) -Ulcer Cleansing Rinsed/ Irrigated with Saline -Foul Odor after Cleansing No -Anesthetic Used 4% Lidocaine Solution Left Calf (cm) Left Ankle (cm) WC - Nurse 2 - General Ulcer CM Notes Start: 09/04/21 11:34 Freq: Status: Active Protocol: Activity Type Activity Date Activity User E-Sign Co-Sign Detail Recorded Client Recorded Date Recorded By Document 09/04/21 13:15 [id number] 09/04/21 13:17 Document 09/11/21 15:33 [id number] 09/11/21 15:38 Document 09/18/21 11:53 [id number] 09/18/21 11:56 Document 09/25/21 11:30 [id number] 09/25/21 11:33 09/04/21 09/11/21 09/18/21 13:15 15:33 11:53 Wound Center Nurse 2 #1 Left Lat Foot Post Op -Time 13:16 15:33 11:53 -Correct Patient Yes Yes Yes -Correct Side, Site, Position Yes Yes Yes -Correct Procedure Yes Yes Yes -Procedure Performed Yes Yes Yes -Type of Procedure Debridement Debridement Debridement -Clinical Debridement Subcutaneous Subcutaneous Subcutaneous -Tissue Removed Subcutaneous Subcutaneous Subcutaneous -Post Debridement (cm) - Length 2.1 1.8 1.4 -Post Debridement (cm) - Width 2.5 1.6 1.1 -Post Debridement (cm) - Depth 0.3 0.3 0.6 -Total Square (Post) (cm) 5.25 2.88 1.54 -Area of Debridement (cm) - Length 2.1 1.8 1.4 -Area of Debridement (cm) - Width 2.5 1.6 1.1 -Total Square (Area) (cm) 5.25 2.88 1.54 -Tunneling No No Yes -Tunneling Position (O'clock) 12 -Tunneling Distance (cm) 1.5 -Undermining/Tunneling No No No -Circular Undermining No No No -Wound/Ulcer Outcome Not Healed Not Healed Not Healed -Ulcer Cleansing Rinsed/ Rinsed/ Rinsed/ Irrigated with Irrigated with Irrigated with Saline Saline Saline -Foul Odor after Cleansing No No -Bioengineered Tissue No No No -Bleeding Controlled with Pressure Pressure Pressure -Offloading Yes Yes Yes -Type of Offloading Surgical Shoe Surgical Shoe Surgical Shoe -Treatment Response Procedure Procedure Procedure Tolerated Well Tolerated Well Tolerated Well -Debridement - Subq, 1st 20sq cm Yes Yes Yes Pain Scale: 0-10 Numeric Is Patient Pain Free? Yes Yes Yes 09/25/21 11:30 Wound Center Nurse 2 #1 Left Lat Foot Post Op -Time 11:31 -Correct Patient Yes -Correct Side, Site, Position Yes -Correct Procedure Yes -Procedure Performed Yes -Type of Procedure Debridement -Clinical Debridement Subcutaneous -Tissue Removed Subcutaneous -Post Debridement (cm) - Length 1.2 -Post Debridement (cm) - Width 1.2 -Post Debridement (cm) - Depth 0.3 -Total Square (Post) (cm) 1.44 -Area of Debridement (cm) - Length 1.2 -Area of Debridement (cm) - Width 1.2 -Total Square (Area) (cm) 1.44 -Tunneling No -Tunneling Position (O'clock) -Tunneling Distance (cm) -Undermining/Tunneling No -Circular Undermining No -Wound/Ulcer Outcome Not Healed -Ulcer Cleansing Rinsed/ Irrigated with Saline -Foul Odor after Cleansing No -Bioengineered Tissue No -Bleeding Controlled with Pressure -Offloading Yes -Type of Offloading Camwalker -Treatment Response Procedure Tolerated Well -Debridement - Subq, 1st 20sq cm Yes Pain Scale: 0-10 Numeric Is Patient Pain Free? Yes - Nurse 3 - General Ulcer D/C NN Start: 09/04/21 11:34 Freq: Status: Active Protocol: Activity Type Activity Date Activity User E-Sign Co-Sign Detail Recorded Client Recorded Date Recorded By Document 09/04/21 12:22 RB [id number] 09/04/21 12:23 RB Document 09/11/21 15:41 RB Desktop 09/11/21 15:42 RB Document 09/18/21 12:07 KR [id number] 09/18/21 12:07 KR Document 09/25/21 11:40 AK [id number] 09/25/21 11:41 AK 09/04/21 09/11/21 09/18/21 12:22 15:41 12:07 Wound Care Nurse 3 #1 Left Lat Foot Post Op -Ulcer Cleansing Rinsed/ Irrigated with Saline -Foul Odor after Cleansing -Negative Pressure Wound Therapy -Primary Dressing Applied Aquacel AG 2x2 Aquacel AG 4x4 Aquacel AG 4x4 -Other Dressing abd -Primary Dressing Covered/Secured with Dry Gauze,Dry Dry Gauze,Dry Dry Gauze, Gauze & Roll Gauze & Roll Secured with Gauze,Secured Gauze,Secured Tape with Tape with Tape -Aquacel AG 4x4 1 1 -Aquacel AG 2x2 1 Left -Lotion applied to leg before compression wrap -Other Treatment Response Procedure Procedure Tolerated Well Tolerated Well Pain Scale: 0-10 Numeric Is Patient Pain Free? Yes Yes Yes WC - Visit Discharge Discharge Condition Stable Stable Stable Ambulatory Status Ambulatory Ambulatory Ambulatory Transportation Private Auto Private Auto Private Auto Accompanied by Medication Reconcilliation completed & No provided to patient/care provider Clinical Summary of Care Provided Yes Yes 09/25/21 11:40 Wound Care Nurse 3 #1 Left Lat Foot Post Op -Ulcer Cleansing Rinsed/ Irrigated with Saline -Foul Odor after Cleansing No -Negative Pressure Wound Therapy N/A -Primary Dressing Applied Aquacel AG 4x4 -Other Dressing -Primary Dressing Covered/Secured with Dry Gauze, Secured with Tape -Aquacel AG 4x4 1 -Aquacel AG 2x2 Left -Lotion applied to leg before No compression wrap -Other own double layer Treatment Response Pain Scale: 0-10 Numeric Is Patient Pain Free? 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 I reviewed his case via chart review and this included his diagnostic data. Debridement was performed as noted in the clinical nursing panel. Dressing recommendations: To wash limb with antibacterial soap and water. It is okay to wash the inside the wound with Dakin solution. To change daily with Aquacel Ag. Wound is stabilizing however osteo is apparent. Updated cultures were obtained last week with Proteus and strep. He was on Augmentin and levofloxacin. Bone was debrided and this was sent to both microbiology and pathology with acute osteo. ID on consult who now updated continued course of Augmentin only.To follow up as scheduled. He had x-ray and lab ordered. Reviewed previously with progressive osseous changes to the remaining fifth metatarsal. It is noted his prior physician ordered an MRI and that was completed earlier today. This was reviewed after clinic with osteomyelitis apparent to the remaining fifth metatarsal and proximal phalanx base which are adjacent to the deep ulcer site. Labs reviewed with white blood cell count 9.8, ESR 37, C-reactive protein 24.9. Patient reports having hemoglobin A1c about 2 to 3 months ago of 9.2%. Patient is noted to have offloaded surgical shoe and wheelchair or crutches for offloading. Offloading Plastizote liners with pocket cut out was fabricated today. Compliance encouraged. I advised him to use 2 crutches a walker or knee roller to completely keep pressure off of this ulcer. Routinely grazing the foot on the ground with the use of one crutch is probably not adequate. 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 Patient is also noted to have vascular studies done on 04/29/2021 demonstrating triphasic waveforms to PT and DP bilaterally with mild degree of large vessel disease despite noncompressible vessels. Right TBI was 0.78 and left TBI was 0.47 possibly consistent with small vessel disease. Vascular surgery referral was previously provided. Discussed importance of smoking cessation, blood sugar control, weight management, offloading, proper nutrition, infection control and hygiene to optimize healing potential. Tubigrip was applied. 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 Discussed trying to elevate as much as possible. All questions answered. Reviewed concerning signs and symptoms to watch out for and to contact office if any of these present or go to the emergency room. To follow-up with the wound healing center in 1 week. He is at significant risk of amputation and limb loss due to his uncontrolled diabetes and bone infection status. He elects to proceed forward limb salvage with wound care and antibiotics at this time. 12 minutes was spent on this encounter. This included face to face and non face to face care including preparing for the visit, reviewing the history, performing the exam, counseling and providing education to the patient, family, or caregiver, ordering medications/test/ procedures if indicated as documented, communicating with other healthcare providers, documenting information in the medical record, interpreting / sharing this information when indicated as documented, and care coordination. This note was generated with [employer] software. It may contain incorrect words, spelling, and punctuation that were not noted in checking the note before signing. He understands he is at risk for limb loss including amputations and further systemic illness.
== END 2021-10-01 23:59 ==
LOC: WC 11:30
PROVIDERS: PCP Physician Assistant Medical; Referring Provider Hospitalist; Visit Provider Podiatrist
DX: E11.621 Type 2 diabetes mellitus with foot ulcer (principal); I25.10 Atherosclerotic heart disease of native coronary artery without angina pectoris; I10 Essential (primary) hypertension; E11.52 Type 2 diabetes mellitus with diabetic peripheral angiopathy with gangrene; Z95.1 Presence of aortocoronary bypass graft; L97.522 Non-pressure chronic ulcer of other part of left foot with fat layer exposed; E11.42 Type 2 diabetes mellitus with diabetic polyneuropathy; E66.9 Obesity, unspecified; Z68.35 Body mass index [BMI] 35.0-35.9, adult; M86.9 Osteomyelitis, unspecified; E11.69 Type 2 diabetes mellitus with other specified complication
CPT/HCPCS: 11042

== ENCOUNTER 2021-10-23 13:30 | Outpatient (RCR) | payer BC, MEDICAID, SELFPAY ==
[2021-10-02 00:16] VITALS: BP 134/74; PULSE 88; RESP 18; TEMP 36.2; BMI 35.6
[2021-10-02 11:09] VITALS: BP 149/77; PULSE 74; RESP 16; BMI 35.6
--- NOTE | 2021-10-02 11:55 | PCM.WC.PN ---
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 Patient has significant medical history including diabetes, hypertension, coronary artery disease, anemia, aortic martinez artery bypass grafting. Patient underwent previous surgical debridement of the wound with Dr. Gerber on 04/28/2021. He was previously progressing well with the wound healing center under comprehensive management and even underwent serial applications of advanced wound healing product, epi fix. He is being treated for osteomyelitis and has an MRI was completed previously to confirm this diagnosis. He is under care of infectious disease specialist, Dr. Arrieta. He has been reducing weight on this in a surgical shoe and does not use the advised assistive device with the use of one crutch. He still needs to get his knee roller out. He changes the dressing with Aquacel Ag due to previous Dakin's solution intolerance. He washes with antiseptic sanitation wipes. Progress of Wound: improving Objective Data Objective Data Vital Signs: Vital Signs Temp Pulse Resp BP 97.2 F L 74 16 149/77 H 10/02/21 00:16 10/02/21 11:09 10/02/21 11:09 10/02/21 11:09 Oxygen Delivery Method Room Air Weight: 122.47 kg Body Mass Index (BMI) 35.6 Physical Exam Narrative Skin Wound Narrative: ulcer noted to left lateral foot down to the level of bone with no longer exposure of bone. The base is granular. No malodor, purulence, fluctuation, crepitus. There is resolved erythema and no longer visualized bone. Skin is atrophic and hairless. Edema noted to the left lower extremity VASC Pulses are palpable 2 out of 4. Capillary refill time is less than 2 seconds to digits. MSK Muscle strength 5 out of 5 for all pedal groups. NEURO Minor decrease in epicritic sensation noted. Patient also noted to be hypersensitive Debridement Note Debridement Note Wound debrided: lateral left forefoot Wound Grade/Stage: 3 Type of Debridement: Excisional debridement Anesthesia Used: 4% Lidocaine Solution Depth: in the subcutaneous layer Percentage of wound debrided: 100 Instrument Used: #15 blade Tissue Removed: fibrous, devitalized subcutaneous, biofilm, slough Severity: Fat Layer Exposed Amount of bleeding with debridement: Mild Bleeding Controlled with: Pressure Patient tolerated procedure: Patient tolerated procedure well Post-Debridement Measurements and Additional Note: Post-Debridement Measurements/Treatment - Nurse 1 - General Ulcer Assessment Start: 10/02/21 11:09 Freq: Status: Active Protocol: MARILYN Activity Type Activity Date Activity User E-Sign Co-Sign Detail Recorded Client Recorded Date Recorded By Document 10/02/21 11:09 DL [id number] 10/02/21 11:15 DL Edit Result 10/02/21 11:09 DL (1) [id number] 10/02/21 11:16 DL (1) Pulse Rate (60-100) => 74 Blood Pressure (90/60-120/80) => 149/77 H Blood Pressure Mean (mm Hg) => 101 10/02/21 11:09 WC - Today's Visit Information Type of service Follow-up Visit (Physician/[employer] ) Arrival Mode Ambulatory Height and Weight Body Mass Index (BMI) 35.6 BMI Classification Obese Vital Signs Pulse Rate (60-100) 74 Pulse Location Monitor Respiratory Rate (12-18) 16 Respiratory rate source Observation Oxygen Delivery Method Room Air Blood Pressure (90/60-120/80) 149/77 H Blood Pressure Mean (mm Hg) 101 Source Monitor Position Sitting Blood Pressure Location Left Arm History Since Last Visit- (Skip if this is Patient's initial visit) Have you changed medications since your No last visit? Any new allergies or adverse reactions No Had a fall/change in ADL's that may No increase risk of falls Signs or symptoms of abuse and/or No neglect since last visit Have you been in the hospital since your No last visit? Has dressing in place as prescribed Yes Has compression in place as prescribed No Has offloadiing in place as prescribed N/A Experienced any changes in pain level or No management Left Footwear Surgical Shoe with pressure relief insole Right Footwear Regular Shoe Pain Scale: 0-10 Numeric Is Patient Pain Free? Yes MARISSA - Nurse 1 - General Ulcer Measurement Start: 10/02/21 11:09 Freq: Status: Active Protocol: Activity Type Activity Date Activity User E-Sign Co-Sign Detail Recorded Client Recorded Date Recorded By Document 10/02/21 11:09 DL [id number] 10/02/21 11:15 DL 10/02/21 11:09 Wound Center Nurse 1 #1 Left Lat Foot Post Op -Combined with other wound No -Current Size (cm) - Length 1.2 -Current Size (cm) - Width 0.9 -Current Size (cm) - Depth 0.5 -Total Square Cm 1.08 -Photo Taken No -Epithelialization None Present -Tunneling No -Undermining/Tunneling Yes -Undermining/Tunneling Starts (O'clock 5 ) -Undermining/Tunneling Ends (O'clock) 8 -Maximum Distance (cm) 1.8 -Circular Undermining No -Exudate Amt Medium -Exudate Type Serosanguineous -Wound Margin Distinct, Outline Attached -Granulation Amt Large (67-100%) -Granulation Quality [place] -Slough/Fibrin No -Necrosis Amt None Present (0 %) -Texture (Anna-wound Skin Appearance) Callus,Scarring -Moisture (Anna-wound Skin Appearance) Assessed,Dry/ Scaly -Color (Anna-wound Skin Appearance) Assessed -Temperature (Anna-wound Skin No Abnormality Appearance) (Pt Warm) -Tenderness on Palpation (Anna-wound No Skin Appearance) -Ulcer Cleansing Soap and Water -Foul Odor after Cleansing No -Anesthetic Used 5% Lidocaine Gel Lower Limb Edema Present Yes Left Calf (cm) 44.5 Left Ankle (cm) 26.5 WC - Nurse 2 - General Ulcer CM Notes Start: 10/02/21 11:09 Freq: Status: Active Protocol: Activity Type Activity Date Activity User E-Sign Co-Sign Detail Recorded Client Recorded Date Recorded By Document 10/02/21 11:36 GABBI [id number] 10/02/21 11:37 Edit Result 10/02/21 11:36 GABBI (1) [id number] 10/02/21 11:45 GABBI (1) #1 Left Lat Foot Post Op - Bioengineered Tissue No => Yes - Type of Bioengineered Tissue => Epifix - Expiration Date => 05/02/26 - Product Lot Number => [id number] - Percent Used => 100 - Lot number of Saline Used => [id number] - Debridement - Subq, 1st 20sq cm Yes => No - Apply Skin Sub - 1st 25 sq cm - Feet => 1 - Epifix (per sq cm) => 4 10/02/21 11:36 Wound Center Nurse 2 #1 Left Lat Foot Post Op -Time 11:36 -Correct Patient Yes -Correct Side, Site, Position Yes -Correct Procedure Yes -Procedure Performed Yes -Type of Procedure Debridement -Clinical Debridement Subcutaneous -Tissue Removed Subcutaneous -Post Debridement (cm) - Length 1.2 -Post Debridement (cm) - Width 1 -Post Debridement (cm) - Depth 0.5 -Total Square (Post) (cm) 1.2 -Area of Debridement (cm) - Length 1.2 -Area of Debridement (cm) - Width 1.0 -Total Square (Area) (cm) 1.20 -Tunneling No -Undermining/Tunneling No -Circular Undermining No -Wound/Ulcer Outcome Not Healed -Ulcer Cleansing Rinsed/ Irrigated with Saline -Foul Odor after Cleansing No -Bioengineered Tissue Yes -Type of Bioengineered Tissue Epifix -Expiration Date 05/02/26 -Product Lot Number [id number] -Percent Used 100 -Lot number of Saline Used [id number] -Bleeding Controlled with Pressure -Offloading Yes -Type of Offloading Surgical Shoe -Treatment Response Procedure Tolerated Well -Debridement - Subq, 1st 20sq cm No -Apply Skin Sub - 1st 25 sq cm - Feet 1 -Epifix (per sq cm) 4 Pain Scale: 0-10 Numeric Is Patient Pain Free? Yes - Nurse 3 - General Ulcer D/C NN Start: 10/02/21 11:09 Freq: Status: Active Protocol: Activity Type Activity Date Activity User E-Sign Co-Sign Detail Recorded Client Recorded Date Recorded By Document 10/02/21 11:48 DL [id number] 10/02/21 11:49 DL 10/02/21 11:48 Wound Care Nurse 3 #1 Left Lat Foot Post Op -Foul Odor after Cleansing No -Other Dressing Epifix -Primary Dressing Covered/Secured with Dry Gauze & Roll Gauze, Secured with Tape Left -Tubular Bandage Double Layer -Size of Tubigrip Used Size E -Size E ($) 1 Treatment Response Procedure Tolerated Well Pain Scale: 0-10 Numeric Is Patient Pain Free? 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 I reviewed his case via chart review and this included his diagnostic data. Debridement was performed as noted in the clinical nursing panel. Dressing recommendations: To wash limb with antibacterial soap and water. It is okay to wash the inside the wound with Dakin solution. To avoid using sanitization wipes which can be harmful to healthy cells. I recommend application of advanced wound product, epi fix. He was already approved for this and now that his infection is being addressed I recommend resuming this product. There was a breech in application series due to his infection as noted. Verbal consent was obtained and this was applied according standard protocol. This was secured in place with a wound veil and Steri-Strips. 100% of the product was applied. He tolerated this well. He was advised to keep this clean, dry, and intact until next week with a secondary dressing which was also applied today. Wound is stabilizing however osteo is apparent. Updated cultures were obtained last week with Proteus and strep. He was on Augmentin and levofloxacin. Bone was debrided and this was sent to both microbiology and pathology with acute osteo. ID on consult who now updated continued course of Augmentin only.To follow up as scheduled. He had x-ray and lab ordered. Reviewed previously with progressive osseous changes to the remaining fifth metatarsal. It is noted his prior physician ordered an MRI and that was completed earlier today. This was reviewed after clinic with osteomyelitis apparent to the remaining fifth metatarsal and proximal phalanx base which are adjacent to the deep ulcer site. Labs reviewed with white blood cell count 9.8, ESR 37, C-reactive protein 24.9. Patient reports having hemoglobin A1c about 2 to 3 months ago of 9.2%. Patient is noted to have offloaded surgical shoe and wheelchair or crutches for offloading. Offloading Plastizote liners with pocket cut out was fabricated today. Compliance encouraged. I advised him to use 2 crutches a walker or knee roller to completely keep pressure off of this ulcer. Routinely grazing the foot on the ground with the use of one crutch is probably not adequate. 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 Patient is also noted to have vascular studies done on 04/29/2021 demonstrating triphasic waveforms to PT and DP bilaterally with mild degree of large vessel disease despite noncompressible vessels. Right TBI was 0.78 and left TBI was 0.47 possibly consistent with small vessel disease. Vascular surgery referral was previously provided. Discussed importance of smoking cessation, blood sugar control, weight management, offloading, proper nutrition, infection control and hygiene to optimize healing potential. Tubigrip was applied. 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 Discussed trying to elevate as much as possible. All questions answered. Reviewed concerning signs and symptoms to watch out for and to contact office if any of these present or go to the emergency room. To follow-up with the wound healing center in 1 week. He is at significant risk of amputation and limb loss due to his uncontrolled diabetes and bone infection status. He elects to proceed forward limb salvage with wound care and antibiotics at this time. This note was generated with [employer] Simple dictation software. It may contain incorrect words, spelling, and punctuation that were not noted in checking the note before signing. He understands he is at risk for limb loss including amputations and further systemic illness.
[2021-10-09 11:25] VITALS: BP 159/77; PULSE 86; RESP 18; TEMP 36.6; BMI 35.6
--- NOTE | 2021-10-09 12:13 | PCM.WC.PN ---
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 Patient has significant medical history including diabetes, hypertension, coronary artery disease, anemia, aortic martinez artery bypass grafting. Patient underwent previous surgical debridement of the wound with Dr. Gerber on 04/28/2021. He was previously progressing well with the wound healing center under comprehensive management and even underwent serial applications of advanced wound healing product, epi fix. He is being treated for osteomyelitis and has an MRI was completed previously to confirm this diagnosis. He is under care of infectious disease specialist, Dr. Arrieta. He has been reducing weight on this in a surgical shoe. He kept his epi fix product in place this past week as advised. Progress of Wound: improving Objective Data Objective Data Vital Signs: Vital Signs Temp Pulse Resp BP 97.8 F 86 18 159/77 H 10/09/21 11:25 10/09/21 11:25 10/09/21 11:25 10/09/21 11:25 Oxygen Delivery Method Room Air Weight: 122.47 kg Body Mass Index (BMI) 35.6 Physical Exam Narrative Skin Wound Narrative: ulcer noted to left lateral foot down to the level of bone with no longer exposure of bone. The base is granular. No malodor, purulence, fluctuation, crepitus. There is resolved erythema and no longer visualized bone. Skin is atrophic and hairless. Edema noted to the left lower extremity VASC Pulses are palpable 2 out of 4. Capillary refill time is less than 2 seconds to digits MSK Muscle strength 5 out of 5 for all pedal groups NEURO Minor decrease in epicritic sensation noted. Patient also noted to be hypersensitive Debridement Note Debridement Note Wound debrided: Lateral left foot Wound Grade/Stage: 3 Type of Debridement: Excisional debridement Anesthesia Used: 4% Lidocaine Solution Depth: in the subcutaneous layer Percentage of wound debrided: 100 Instrument Used: #15 blade Tissue Removed: fibrous, devitalized subcutaneous, biofilm, slough Severity: Fat Layer Exposed Amount of bleeding with debridement: Mild Bleeding Controlled with: Pressure Patient tolerated procedure: Patient tolerated procedure well Post-Debridement Measurements and Additional Note: Post-Debridement Measurements/Treatment WC - Nurse 1 - General Ulcer Assessment Start: 10/02/21 11:09 Freq: Status: Active Protocol: MARILYN Activity Type Activity Date Activity User E-Sign Co-Sign Detail Recorded Client Recorded Date Recorded By Document 10/02/21 11:09 DL [id number] 10/02/21 11:15 DL Edit Result 10/02/21 11:09 DL (1) [id number] 10/02/21 11:16 DL Document 10/09/21 11:25 BMF [id number] 10/09/21 11:31 BMF (1) Pulse Rate (60-100) => 74 Blood Pressure (90/60-120/80) => 149/77 H Blood Pressure Mean (mm Hg) => 101 10/02/21 10/09/21 11:09 11:25 - Today's Visit Information Type of service Follow-up Visit Follow-up Visit (Physician/FAMILY DEVELOPMENT EXTENSION SPECIALIST (Physician/FAMILY DEVELOPMENT EXTENSION SPECIALIST ) ) Arrival Mode Ambulatory Ambulatory Transfer Assistance None Accompanied by Patient Identification Verified (Name & Yes ) Patient Requires Transmission-Based No Precautions Height and Weight Body Mass Index (BMI) 35.6 35.6 BMI Classification Obese Obese Temperature (97.8 F-99.1 F) 97.8 F Temperature Source Temporal Vital Signs Pulse Rate (60-100) 74 86 Pulse Location Monitor Monitor Respiratory Rate (12-18) 16 18 Respiratory rate source Observation Observation Oxygen Delivery Method Room Air Room Air Blood Pressure (90/60-120/80) 149/77 H 159/77 H Blood Pressure Mean (mm Hg) 101 104 Source Monitor Monitor Position Sitting Sitting Blood Pressure Location Left Arm Left Arm History Since Last Visit- (Skip if this is Patient's initial visit) Have you changed medications since your No No last visit? Any new allergies or adverse reactions No No Had a fall/change in ADL's that may No No increase risk of falls Signs or symptoms of abuse and/or No No neglect since last visit Have you been in the hospital since your No No last visit? Has dressing in place as prescribed Yes Yes Has compression in place as prescribed No N/A Has offloadiing in place as prescribed N/A N/A Experienced any changes in pain level or No No management Left Footwear Surgical Shoe Surgical Shoe with pressure with pressure relief insole relief insole Right Footwear Regular Shoe Regular Shoe Pain Scale: 0-10 Numeric Is Patient Pain Free? Yes Yes - Nurse 1 - General Ulcer Measurement Start: 10/02/21 11:09 Freq: Status: Active Protocol: Activity Type Activity Date Activity User E-Sign Co-Sign Detail Recorded Client Recorded Date Recorded By Document 10/02/21 11:09 DL [id number] 10/02/21 11:15 DL Document 10/09/21 11:25 [facility] [id number] 10/09/21 11:31 [facility] 10/02/21 10/09/21 11:09 11:25 Wound Center Nurse 1 #1 Left Lat Foot Post Op -Combined with other wound No No -Current Size (cm) - Length 1.2 0.6 -Current Size (cm) - Width 0.9 0.4 -Current Size (cm) - Depth 0.5 0.3 -Total Square Cm 1.08 0.24 -Photo Taken No No -Epithelialization None Present -Tunneling No No -Undermining/Tunneling Yes No -Undermining/Tunneling Starts (O'clock 5 ) -Undermining/Tunneling Ends (O'clock) 8 -Maximum Distance (cm) 1.8 -Circular Undermining No No -Exudate Amt Medium Medium -Exudate Type Serosanguineous Serosanguineous -Wound Margin Distinct, Distinct, Outline Outline Attached Attached -Granulation Amt Large (67-100%) Large (67-100%) -Granulation Quality [place] Red -Slough/Fibrin No Yes -Necrosis Amt None Present (0 Small (1-33%) %) -Necrotic Tissue Type Adherent Slough -Texture (Anna-wound Skin Appearance) Callus,Scarring Callus,Scarring -Moisture (Anna-wound Skin Appearance) Assessed,Dry/ Assessed, Scaly Maceration -Color (Anna-wound Skin Appearance) Assessed Assessed,Palor -Temperature (Anna-wound Skin No Abnormality No Abnormality Appearance) (Pt Warm) (Pt Warm) -Tenderness on Palpation (Nana-wound No No Skin Appearance) -Ulcer Cleansing Soap and Water Soap and Water -Foul Odor after Cleansing No No -Anesthetic Used 5% Lidocaine 5% Lidocaine Gel Gel Lower Limb Edema Present Yes Yes Left Calf (cm) 44.5 47 Left Ankle (cm) 26.5 27 - Nurse 2 - General Ulcer CM Notes Start: 10/02/21 11:09 Freq: Status: Active Protocol: Activity Type Activity Date Activity User E-Sign Co-Sign Detail Recorded Client Recorded Date Recorded By Document 10/02/21 11:36 [id number] 10/02/21 11:37 Edit Result 10/02/21 11:36 JF (1) [id number] 10/02/21 11:45 JF Document 10/09/21 11:37 [id number] 10/09/21 11:42 JF (1) #1 Left Lat Foot Post Op - Bioengineered Tissue No => Yes - Type of Bioengineered Tissue => Epifix - Expiration Date => 05/02/26 - Product Lot Number => [id number] - Percent Used => 100 - Lot number of Saline Used => [id number] - Debridement - Subq, 1st 20sq cm Yes => No - Apply Skin Sub - 1st 25 sq cm - Feet => 1 - Epifix (per sq cm) => 4 10/02/21 10/09/21 11:36 11:37 Wound Center Nurse 2 #1 Left Lat Foot Post Op -Time 11:36 11:38 -Correct Patient Yes Yes -Correct Side, Site, Position Yes Yes -Correct Procedure Yes Yes -Procedure Performed Yes Yes -Type of Procedure Debridement Debridement -Clinical Debridement Subcutaneous Subcutaneous -Tissue Removed Subcutaneous Subcutaneous -Post Debridement (cm) - Length 1.2 0.9 -Post Debridement (cm) - Width 1 1.0 -Post Debridement (cm) - Depth 0.5 0.2 -Total Square (Post) (cm) 1.2 0.90 -Area of Debridement (cm) - Length 1.2 0.9 -Area of Debridement (cm) - Width 1.0 1.0 -Total Square (Area) (cm) 1.20 0.90 -Tunneling No No -Undermining/Tunneling No No -Circular Undermining No No -Wound/Ulcer Outcome Not Healed Not Healed -Ulcer Cleansing Rinsed/ Rinsed/ Irrigated with Irrigated with Saline Saline -Foul Odor after Cleansing No No -Bioengineered Tissue Yes Yes -Type of Bioengineered Tissue Epifix Epifix 18mm Disc -Expiration Date 05/02/26 07/03/26 -Product Lot Number [id number] -Percent Used 100 100 -Lot number of Saline Used [id number] -Bleeding Controlled with Pressure Pressure -Offloading Yes Yes -Type of Offloading Surgical Shoe Surgical Shoe -Treatment Response Procedure Procedure Tolerated Well Tolerated Well -Debridement - Subq, 1st 20sq cm No No -Apply Skin Sub - 1st 25 sq cm - Feet 1 1 -Epifix (per sq cm) 4 -Epifix 18mm Disc 3 Pain Scale: 0-10 Numeric Is Patient Pain Free? Yes Yes - Nurse 3 - General Ulcer D/C NN Start: 10/02/21 11:09 Freq: Status: Active Protocol: Activity Type Activity Date Activity User E-Sign Co-Sign Detail Recorded Client Recorded Date Recorded By Document 10/02/21 11:48 DL [id number] 10/02/21 11:49 DL Document 10/09/21 11:46 RB [id number] 10/09/21 11:47 RB 10/02/21 10/09/21 11:48 11:46 Wound Care Nurse 3 #1 Left Lat Foot Post Op -Foul Odor after Cleansing No -Primary Dressing Applied Aquacel AG 4x4 -Other Dressing Epifix -Primary Dressing Covered/Secured with Dry Gauze & Dry Gauze,Dry Roll Gauze, Gauze & Roll Secured with Gauze,Secured Tape with Tape -Aquacel AG 4x4 1 Left -Tubular Bandage Double Layer -Size of Tubigrip Used Size E -Size E ($) 1 -Other DOUBLE LAYER SIZE E Treatment Response Procedure Procedure Tolerated Well Tolerated Well Pain Scale: 0-10 Numeric Is Patient Pain Free? Yes Yes - Visit Discharge Discharge Condition Stable Stable Ambulatory Status Ambulatory Ambulatory Transportation Private Auto Private Auto Medication Reconcilliation completed & No provided to patient/care provider Clinical Summary of Care Provided Yes Assessment/Plan Assessment/Plan (1) Type 2 diabetes mellitus with diabetic polyneuropathy: CODE(S): E11.42 - Type 2 diabetes mellitus with diabetic polyneuropathy (2) Obesity: CODE(S): E66.9 - Obesity, unspecified (3) Left foot pain: CODE(S): M79.672 - Pain in left foot (4) Cellulitis of left foot: CODE(S): L03.116 - Cellulitis of left lower limb (5) 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 I reviewed his case via chart review and this included his diagnostic data. Debridement was performed as noted in the clinical nursing panel. Dressing recommendations: Clean, dry, and intact. Aquacel Ag was applied over the epi fix and wound veil I recommend application of advanced wound product, epi fix. He was already approved for this and now that his infection is being addressed I recommend resuming this product. There was a breech in application series due to his infection as noted. Verbal consent was obtained and this was applied according standard protocol. This was secured in place with a wound veil and Steri-Strips. 100% of the product was applied. He tolerated this well. He was advised to keep this clean, dry, and intact until next week with a secondary dressing which was also applied today. Wound is stabilizing however osteo is apparent. Updated cultures were obtained last week with Proteus and strep. He was on Augmentin and levofloxacin. Bone was debrided and this was sent to both microbiology and pathology with acute osteo. ID on consult who now updated continued course of Augmentin only.To follow up as scheduled. He had x-ray and lab ordered. Reviewed previously with progressive osseous changes to the remaining fifth metatarsal. It is noted his prior physician ordered an MRI and that was completed earlier today. This was reviewed after clinic with osteomyelitis apparent to the remaining fifth metatarsal and proximal phalanx base which are adjacent to the deep ulcer site. Labs reviewed with white blood cell count 9.8, ESR 37, C-reactive protein 24.9. Patient reports having hemoglobin A1c about 2 to 3 months ago of 9.2%. Patient is noted to have offloaded surgical shoe and wheelchair or crutches for offloading. Offloading Plastizote liners with pocket cut out was fabricated today. Compliance encouraged. I advised him to use 2 crutches a walker or knee roller to completely keep pressure off of this ulcer. Routinely grazing the foot on the ground with the use of one crutch is probably not adequate. 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 Patient is also noted to have vascular studies done on 04/29/2021 demonstrating triphasic waveforms to PT and DP bilaterally with mild degree of large vessel disease despite noncompressible vessels. Right TBI was 0.78 and left TBI was 0.47 possibly consistent with small vessel disease. Vascular surgery referral was previously provided. Discussed importance of smoking cessation, blood sugar control, weight management, offloading, proper nutrition, infection control and hygiene to optimize healing potential. Tubigrip was applied. 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 Discussed trying to elevate as much as possible. All questions answered. Reviewed concerning signs and symptoms to watch out for and to contact office if any of these present or go to the emergency room. To follow-up with the wound healing center in 1 week. He is at significant risk of amputation and limb loss due to his uncontrolled diabetes and bone infection status. He elects to proceed forward limb salvage with wound care and antibiotics at this time. This note was generated with [employer] dictation software. It may contain incorrect words, spelling, and punctuation that were not noted in checking the note before signing. He understands he is at risk for limb loss including amputations and further systemic illness.
[2021-10-16 11:10] VITALS: BP 148/77; PULSE 82; RESP 20; TEMP 36.8; BMI 35.6
--- NOTE | 2021-10-16 13:15 | PN.PCM_ITS ---
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 Patient has significant medical history including diabetes, hypertension, coronary artery disease, anemia, aortic martinez artery bypass grafting. Patient underwent previous surgical debridement of the wound with Dr. Gerber on 04/28/2021. He was previously progressing well with the wound healing center under comprehensive management and even underwent serial applications of advanced wound healing product, epi fix. He is being treated for osteomyelitis and has an MRI was completed previously to confirm this diagnosis. He is under care of infectious disease specialist, Dr. Arrieta. He has been reducing weight on this in a surgical shoe. He kept his epi fix product in place this past week as advised. Progress of Wound: improving Objective Data Objective Data Vital Signs: Vital Signs Temp Pulse Resp BP 98.2 F 82 20 H 148/77 H 10/16/21 11:10 10/16/21 11:10 10/16/21 11:10 10/16/21 11:10 Oxygen Delivery Method Room Air Weight: 122.47 kg Body Mass Index (BMI) 35.6 Physical Exam Narrative Skin Wound Narrative: ulcer noted to left lateral foot down to the level of bone with no longer exposure of bone. The base is granular. No malodor, purulence, fluctuation, crepitus. There is resolved erythema and no longer visualized bone. Skin is atrophic and hairless. reduced ulcer size noted. Edema noted to the left lower extremity VASC Pulses are palpable 2 out of 4. Capillary refill time is less than 2 seconds to digits MSK Muscle strength 5 out of 5 for all pedal groups NEURO Minor decrease in epicritic sensation noted. Patient also noted to be hypersens itive Debridement Note Debridement Note Wound debrided: lateral left forefoot Wound Grade/Stage: 3 Type of Debridement: Excisional debridement Anesthesia Used: 4% Lidocaine Solution Depth: in the subcutaneous layer Percentage of wound debrided: 100 Instrument Used: #15 blade Tissue Removed: fibrous, devitalized subcutaneous, biofilm, slough Severity: Fat Layer Exposed Amount of bleeding with debridement: Mild Bleeding Controlled with: Pressure Patient tolerated procedure: Patient tolerated procedure well Post-Debridement Measurements and Additional Note: Post-Debridement Measurements/Treatment WC - Nurse 1 - General Ulcer Assessment Start: 10/02/21 11:09 Freq: Status: Active Protocol: WC.LOWEXT Activity Type Activity Date Activity User E-Sign Co-Sign Detail Recorded Client Recorded Date Recorded By Document 10/02/21 11:09 DL [id number] 10/02/21 11:15 DL Edit Result 10/02/21 11:09 DL (1) [id number] 10/02/21 11:16 DL Document 10/09/21 11:25 BMF [id number] 10/09/21 11:31 BMF Document 10/16/21 11:10 DL [id number] 10/16/21 11:14 DL (1) Pulse Rate (60-100) => 74 Blood Pressure (90/60-120/80) => 149/77 H Blood Pressure Mean (mm Hg) => 101 10/02/21 10/09/21 10/16/21 11:09 11:25 11:10 WC - Today's Visit Information Type of service Follow-up Visit Follow-up Visit Follow-up Visit (Physician/[employer] (Physician/[employer] (Physician/[employer] ) ) ) Arrival Mode Ambulatory Ambulatory Ambulatory Transfer Assistance None None Accompanied by Patient Identification Verified (Name & Yes Yes ) Patient Requires Transmission-Based No Precautions Finger Stick Blood Sugar(mg/dl) (if not checked indicated): Blood Sugar Stated by Patient Height and Weight Body Mass Index (BMI) 35.6 35.6 35.6 BMI Classification Obese Obese Obese Temperature (97.8 F-99.1 F) 97.8 F 98.2 F Temperature Source Temporal Temporal Vital Signs Pulse Rate (60-100) 74 86 82 Pulse Location Monitor Monitor Monitor Respiratory Rate (12-18) 16 18 20 H Respiratory rate source Observation Observation Observation Oxygen Delivery Method Room Air Room Air Blood Pressure (90/60-120/80) 149/77 H 159/77 H 148/77 H Blood Pressure Mean (mm Hg) 101 104 100 Source Monitor Monitor Monitor Position Sitting Sitting Blood Pressure Location Left Arm Left Arm History Since Last Visit- (Skip if this is Patient's initial visit) Have you changed medications since your No No No last visit? Any new allergies or adverse reactions No No No Had a fall/change in ADL's that may No No No increase risk of falls Signs or symptoms of abuse and/or No No No neglect since last visit Have you been in the hospital since your No No No last visit? Has dressing in place as prescribed Yes Yes Yes Has compression in place as prescribed No N/A N/A Has offloadiing in place as prescribed N/A N/A Experienced any changes in pain level or No No No management Left Footwear Surgical Shoe Surgical Shoe with pressure with pressure relief insole relief insole Right Footwear Regular Shoe Regular Shoe Pain Scale: 0-10 Numeric Is Patient Pain Free? Yes Yes Yes WC - Nurse 1 - General Ulcer Measurement Start: 10/02/21 11:09 Freq: Status: Active Protocol: Activity Type Activity Date Activity User E-Sign Co-Sign Detail Recorded Client Recorded Date Recorded By Document 10/02/21 11:09 [id number] 10/02/21 11:15 Document 10/09/21 11:25 [facility] [id number] 10/09/21 11:31 [facility] Document 10/16/21 11:10 [id number] 10/16/21 11:14 DL 10/02/21 10/09/21 10/16/21 11:09 11:25 11:10 Wound Center Nurse 1 #1 Left Lat Foot Post Op -Combined with other wound No No -Current Size (cm) - Length 1.2 0.6 0.6 -Current Size (cm) - Width 0.9 0.4 0.4 -Current Size (cm) - Depth 0.5 0.3 0.3 -Total Square Cm 1.08 0.24 0.24 -Photo Taken No No No -Epithelialization None Present -Tunneling No No -Undermining/Tunneling Yes No -Undermining/Tunneling Starts (O'clock 5 ) -Undermining/Tunneling Ends (O'clock) 8 -Maximum Distance (cm) 1.8 -Circular Undermining No No -Exudate Amt Medium Medium Medium -Exudate Type Serosanguineous Serosanguineous Serosanguineous -Wound Margin Distinct, Distinct, Thickened Outline Outline Attached Attached -Granulation Amt Large (67-100%) Large (67-100%) Small (1-33%) -Granulation Quality [place] Red [place] -Slough/Fibrin No Yes -Necrosis Amt None Present (0 Small (1-33%) Small (1-33%) %) -Necrotic Tissue Type Adherent Slough Adherent Slough -Structure Exposed N/A -Texture (Anna-wound Skin Appearance) Callus,Scarring Callus,Scarring Scarring -Moisture (Anna-wound Skin Appearance) Assessed,Dry/ Assessed, Maceration Scaly Maceration -Color (Anna-wound Skin Appearance) Assessed Assessed,Palor No Abnormality -Temperature (Anna-wound Skin No Abnormality No Abnormality No Abnormality Appearance) (Pt Warm) (Pt Warm) (Pt Warm) -Tenderness on Palpation (Anna-wound No No No Skin Appearance) -Ulcer Cleansing Soap and Water Soap and Water Soap and Water -Foul Odor after Cleansing No No No -Anesthetic Used 5% Lidocaine 5% Lidocaine 5% Lidocaine Gel Gel Gel Lower Limb Edema Present Yes Yes Left Calf (cm) 44.5 47 45 Left Ankle (cm) 26.5 27 27 WC - Nurse 2 - General Ulcer CM Notes Start: 10/02/21 11:09 Freq: Status: Active Protocol: Activity Type Activity Date Activity User E-Sign Co-Sign Detail Recorded Client Recorded Date Recorded By Document 10/02/21 11:36 [id number] 10/02/21 11:37 Edit Result 10/02/21 11:36 (1) [id number] 10/02/21 11:45 Document 10/09/21 11:37 [id number] 10/09/21 11:42 Document 10/16/21 11:29 [id number] 10/16/21 11:32 (1) #1 Left Lat Foot Post Op - Bioengineered Tissue No => Yes - Type of Bioengineered Tissue => Epifix - Expiration Date => 05/02/26 - Product Lot Number => [id number] - Percent Used => 100 - Lot number of Saline Used => [id number] - Debridement - Subq, 1st 20sq cm Yes => No - Apply Skin Sub - 1st 25 sq cm - Feet => 1 - Epifix (per sq cm) => 4 10/02/21 10/09/21 10/16/21 11:36 11:37 11:29 Wound Center Nurse 2 #1 Left Lat Foot Post Op -Time 11:36 11:38 11:29 -Correct Patient Yes Yes Yes -Correct Side, Site, Position Yes Yes Yes -Correct Procedure Yes Yes Yes -Procedure Performed Yes Yes Yes -Type of Procedure Debridement Debridement Debridement -Clinical Debridement Subcutaneous Subcutaneous Subcutaneous -Tissue Removed Subcutaneous Subcutaneous Subcutaneous -Post Debridement (cm) - Length 1.2 0.9 0.6 -Post Debridement (cm) - Width 1 1.0 0.5 -Post Debridement (cm) - Depth 0.5 0.2 0.2 -Total Square (Post) (cm) 1.2 0.90 0.30 -Area of Debridement (cm) - Length 1.2 0.9 0.6 -Area of Debridement (cm) - Width 1.0 1.0 0.5 -Total Square (Area) (cm) 1.20 0.90 0.30 -Tunneling No No No -Undermining/Tunneling No No No -Circular Undermining No No No -Wound/Ulcer Outcome Not Healed Not Healed Not Healed -Ulcer Cleansing Rinsed/ Rinsed/ Rinsed/ Irrigated with Irrigated with Irrigated with Saline Saline Saline -Foul Odor after Cleansing No No No -Bioengineered Tissue Yes Yes Yes -Type of Bioengineered Tissue Epifix Epifix 18mm Epifix 18mm Disc Disc -Expiration Date 05/02/26 07/03/26 07/03/26 -Product Lot Number [id number] -Percent Used 100 100 100 -Lot number of Saline Used [id number] -Bleeding Controlled with Pressure Pressure NA -Offloading Yes Yes Yes -Type of Offloading Surgical Shoe Surgical Shoe Surgical Shoe -Treatment Response Procedure Procedure Procedure Tolerated Well Tolerated Well Tolerated Well -Debridement - Subq, 1st 20sq cm No No No -Apply Skin Sub - 1st 25 sq cm - Feet 1 1 1 -Epifix (per sq cm) 4 -Epifix 18mm Disc 3 3 Pain Scale: 0-10 Numeric Is Patient Pain Free? Yes Yes Yes WC - Nurse 3 - General Ulcer D/C NN Start: 10/02/21 11:09 Freq: Status: Active Protocol: Activity Type Activity Date Activity User E-Sign Co-Sign Detail Recorded Client Recorded Date Recorded By Document 12/01/21 11:48 DL [id number] 10/02/21 11:49 DL Document 10/09/21 11:46 RB [id number] 10/09/21 11:47 RB Document 10/16/21 11:36 [id number] 10/16/21 11:37 JF 10/02/21 10/09/21 10/16/21 11:48 11:46 11:36 Wound Care Nurse 3 #1 Left Lat Foot Post Op -Ulcer Cleansing Rinsed/ Irrigated with Saline -Foul Odor after Cleansing No No -Primary Dressing Applied Aquacel AG 4x4 Aquacel AG 2x2 -Other Dressing Epifix -Primary Dressing Covered/Secured with Dry Gauze & Dry Gauze,Dry Dry Gauze, Roll Gauze, Gauze & Roll Secured with Secured with Gauze,Secured Tape Tape with Tape -Aquacel AG 4x4 1 -Aquacel AG 2x2 1 Left -Tubular Bandage Double Layer Double Layer -Size of Tubigrip Used Size E Size E -Size E ($) 1 2 -Other DOUBLE LAYER SIZE E Treatment Response Procedure Procedure Tolerated Well Tolerated Well Pain Scale: 0-10 Numeric Is Patient Pain Free? Yes Yes Yes WC - Visit Discharge Discharge Condition Stable Stable Stable Ambulatory Status Ambulatory Ambulatory Ambulatory Transportation Private Auto Private Auto Private Auto Medication Reconcilliation completed & No Yes provided to patient/care provider Clinical Summary of Care Provided Yes Yes Assessment/Plan Assessment/Plan (1) Type 2 diabetes mellitus with diabetic polyneuropathy: CODE(S): E11.42 - Type 2 diabetes mellitus with diabetic polyneuropathy (2) Obesity: CODE(S): E66.9 - Obesity, unspecified (3) Left foot pain: CODE(S): M79.672 - Pain in left foot (4) Cellulitis of left foot: CODE(S): L03.116 - Cellulitis of left lower limb (5) 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 I reviewed his case via chart review and this included his diagnostic data. Debridement was performed as noted in the clinical nursing panel. Dressing recommendations: Clean, dry, and intact. Aquacel Ag was applied over the epi fix and wound veil I recommend application of advanced wound product, epi fix. He was already approved for this and now that his infection is being addressed I recommend resuming this product. There was a breech in application series due to his infection as noted. Verbal consent was obtained and this was applied according standard protocol. This was secured in place with a wound veil and Steri- Strips. 100% of the product was applied. He tolerated this well. He was advised to keep this clean, dry, and intact until next week with a secondary dressing which was also applied today. I recommend continued application becaus e he is responding well with this and he has continued high risk. Additional prior authorization will be pursued at this time. Wound is stabilizing however osteo is apparent. Updated cultures were obtained last week with Proteus and strep. He was on Augmentin and levofloxacin. Bone was debrided and this was sent to both microbiology and pathology with acute osteo. ID on consult who now updated continued course of Augmentin only.To follow up as scheduled. He had x-ray and lab ordered. Reviewed previously with progressive osseous changes to the remaining fifth metatarsal. It is noted his prior physician ordered an MRI and that was completed earlier today. This was reviewed after clinic with osteomyelitis apparent to the remaining fifth metatarsal and proximal phalanx base which are adjacent to the deep ulcer site. Labs reviewed with white blood cell count 9.8, ESR 37, C-reactive protein 24.9. Patient reports having hemoglobin A1c about 2 to 3 months ago of 9.2%. Patient is noted to have offloaded surgical shoe and wheelchair or crutches for offloading. Offloading Plastizote liners with pocket cut out was fabricated today. Compliance encouraged. I advised him to use 2 crutches a walker or knee roller to completely keep pressure off of this ulcer. Routinely grazing the foot on the ground with the use of one crutch is probably not adequate. 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 Patient is also noted to have vascular studies done on 04/29/2021 demonstrating triphasic waveforms to PT and DP bilaterally with mild degree of large vessel disease despite noncompressible vessels. Right TBI was 0.78 and left TBI was 0.47 possibly consistent with small vessel disease. Vascular surgery referral was previously provided. Discussed importance of smoking cessation, blood sugar control, weight management, offloading, proper nutrition, infection control and hygiene to optimize healing potential. Tubigrip was applied. 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 Discussed trying to elevate as much as possible. All questions answered. Reviewed concerning signs and symptoms to watch out for and to contact office if any of these present or go to the emergency room. To follow-up with the wound healing center in 1 week. He is at significant risk of amputation and limb loss due to his uncontrolled diabetes and bone infection status. He elects to proceed forward limb salvage with wound care and antibiotics at this time. This note was generated with [email or web address] dictation software. It may contain incorrect words, spelling, and punctuation that were not noted in checking the note before signing. He understands he is at risk for limb loss including amputations and further systemic illness.
[2021-10-23 13:08] VITALS: BP 176/92; PULSE 95; RESP 20; TEMP 36.2; BMI 35.6
== END 2021-11-01 23:59 ==
LOC: WC 13:30
PROVIDERS: PCP Physician Assistant Medical; Referring Provider Hospitalist; Visit Provider Podiatrist
DX: E11.621 Type 2 diabetes mellitus with foot ulcer (principal); E11.52 Type 2 diabetes mellitus with diabetic peripheral angiopathy with gangrene; I10 Essential (primary) hypertension; I25.10 Atherosclerotic heart disease of native coronary artery without angina pectoris; E11.69 Type 2 diabetes mellitus with other specified complication; M86.9 Osteomyelitis, unspecified; L97.522 Non-pressure chronic ulcer of other part of left foot with fat layer exposed; L03.116 Cellulitis of left lower limb
CPT/HCPCS: 11042; 15275; 99212; Q4186; G0463

== ENCOUNTER 2021-11-27 11:30 | Outpatient (RCR) | payer BC, MEDICAID, SELFPAY ==
[2021-11-02 00:16] VITALS: BP 176/92; PULSE 95; RESP 20; TEMP 36.2; BMI 35.6
[2021-11-06 11:24] VITALS: BP 138/67; PULSE 86; TEMP 36.3; BMI 35.6
--- NOTE | 2021-11-06 22:32 | PCM.WC.PN ---
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 Patient has significant medical history including diabetes, hypertension, coronary artery disease, anemia, aortic martinez artery bypass grafting. Patient underwent previous surgical debridement of the wound with Dr. Gerber on 04/28/2021. He was previously progressing well with the wound healing center under comprehensive management and even underwent serial applications of advanced wound healing product, epi fix. He is being treated for osteomyelitis and has an MRI was completed previously to confirm this diagnosis. He is under care of infectious disease specialist, Dr. Arrieta. He has been reducing weight on this in a surgical shoe. He kept his epi fix product in place this past week as advised. Progress of Wound: improving Objective Data Objective Data Vital Signs: Vital Signs Temp Pulse Resp BP 97.3 F L 86 20 H 138/67 H 11/06/21 11:24 11/06/21 11:24 11/02/21 00:16 11/06/21 11:24 Weight: 122.47 kg Body Mass Index (BMI) 35.6 Physical Exam Narrative Skin Wound Narrative: ulcer noted to left lateral foot down to the level of bone with no longer exposure of bone. The base is granular. No malodor, purulence, fluctuation, crepitus. There is resolved erythema and no longer visualized bone. Skin is atrophic and hairless. reduced ulcer size noted. Edema noted to the left lower extremity VASC Pulses are palpable 2 out of 4. Capillary refill time is less than 2 seconds to digits MSK Muscle strength 5 out of 5 for all pedal groups NEURO Minor decrease in epicritic sensation noted. Patient also noted to be hypersensitive Debridement Note Debridement Note Wound debrided: left foot Wound Grade/Stage: 3 Type of Debridement: Excisional debridement Anesthesia Used: 4% Lidocaine Solution Depth: in the subcutaneous layer Percentage of wound debrided: 100 Instrument Used: #15 blade Tissue Removed: fibrous, devitalized subcutaneous, biofilm, slough Severity: Fat Layer Exposed Amount of bleeding with debridement: Mild Bleeding Controlled with: Pressure Patient tolerated procedure: Patient tolerated procedure well Post-Debridement Measurements and Additional Note: Post-Debridement Measurements/Treatment WC - Nurse 1 - General Ulcer Assessment Start: 11/06/21 11:24 Freq: Status: Active Protocol: MARILYN Activity Type Activity Date Activity User E-Sign Co-Sign Detail Recorded Client Recorded Date Recorded By Document 11/06/21 11:24 [email or web address] [id number] 11/06/21 11:25 DEEPIKA 11/06/21 11:24 - Today's Visit Information Type of service 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 Any new allergies or adverse reactions No Had a fall/change in ADL's that may No increase risk of falls Signs or symptoms of abuse and/or No neglect since last visit Have you been in the hospital since your No last visit? Has dressing in place as prescribed Yes Has compression in place as prescribed N/A Has offloadiing in place as prescribed N/A Experienced any changes in pain level or No management Left Footwear Regular Shoe Right Footwear Removable Cast Walker/Walking Boot - Nurse 1 - General Ulcer Measurement Start: 11/06/21 11:24 Freq: Status: Active Protocol: Activity Type Activity Date Activity User E-Sign Co-Sign Detail Recorded Client Recorded Date Recorded By Document 11/06/21 11:24 [email or web address] [id number] 11/06/21 11:25 [email or web address] 11/06/21 11:24 Wound Center Nurse 1 #1 Left Lat Foot Post Op -Current Size (cm) - Length 0.2 -Current Size (cm) - Width 0.6 -Current Size (cm) - Depth 0.3 -Total Square Cm 0.12 -Exudate Amt Small -Exudate Type Yellow/Green -Wound Margin Distinct, Outline Attached -Granulation Amt Large (67-100%) -Granulation Quality [place] -Necrosis Amt None Present (0 %) -Texture (Anna-wound Skin Appearance) Callus -Moisture (Anna-wound Skin Appearance) No Abnormality, Assessed -Color (Anna-wound Skin Appearance) No Abnormality, Assessed -Temperature (Anna-wound Skin No Abnormality Appearance) (Pt Warm) -Tenderness on Palpation (Anna-wound No Skin Appearance) -Ulcer Cleansing Rinsed/ Irrigated with Saline -Foul Odor after Cleansing No -Anesthetic Used 4% Lidocaine Solution WC - Nurse 2 - General Ulcer CM Notes Start: 11/06/21 11:24 Freq: Status: Active Protocol: Activity Type Activity Date Activity User E-Sign Co-Sign Detail Recorded Client Recorded Date Recorded By Document 11/06/21 11:30 [id number] 11/06/21 11:35 JF 11/06/21 11:30 Wound Center Nurse 2 -Time 11:30 -Correct Patient Yes -Correct Side, Site, Position Yes -Correct Procedure Yes -Procedure Performed Yes -Type of Procedure Debridement -Clinical Debridement Subcutaneous -Tissue Removed Subcutaneous -Post Debridement (cm) - Length 0.3 -Post Debridement (cm) - Width 1.0 -Post Debridement (cm) - Depth 0.3 -Total Square (Post) (cm) 0.30 -Area of Debridement (cm) - Length 0.3 -Area of Debridement (cm) - Width 1.0 -Total Square (Area) (cm) 0.30 -Tunneling No -Undermining/Tunneling No -Circular Undermining No -Wound/Ulcer Outcome Not Healed -Ulcer Cleansing Rinsed/ Irrigated with Saline -Foul Odor after Cleansing No -Bioengineered Tissue Yes -Type of Bioengineered Tissue Epifix 18mm Disc -Expiration Date 07/03/26 -Product Lot Number [id number] -Percent Used 100 -Lot number of Saline Used [id number] -Bleeding Controlled with Pressure -Offloading Yes -Type of Offloading Surgical Shoe -Treatment Response Procedure Tolerated Well -Debridement - Subq, 1st 20sq cm No -Apply Skin Sub - 1st 25 sq cm - Feet 1 -Epifix 18mm Disc 3 Pain Scale: 0-10 Numeric Is Patient Pain Free? Yes WC - Nurse 3 - General Ulcer D/C NN Start: 11/06/21 11:24 Freq: Status: Active Protocol: Activity Type Activity Date Activity User E-Sign Co-Sign Detail Recorded Client Recorded Date Recorded By Document 11/06/21 11:38 [place] [id number] 11/06/21 11:40 [place] 11/06/21 11:38 Wound Care Nurse 3 #1 Left Lat Foot Post Op -Ulcer Cleansing Rinsed/ Irrigated with Saline -Foul Odor after Cleansing No -Negative Pressure Wound Therapy N/A -Primary Dressing Applied Mepilex Border -Mepilex Border 1 Left -Size of Tubigrip Used Size E WC - Visit Discharge Discharge Condition Stable Transportation Private Auto Accompanied by Medication Reconcilliation completed & No provided to patient/care provider Clinical Summary of Care Provided Yes Assessment/Plan Assessment/Plan (1) Type 2 diabetes mellitus with diabetic polyneuropathy: CODE(S): E11.42 - Type 2 diabetes mellitus with diabetic polyneuropathy (2) Obesity: CODE(S): E66.9 - Obesity, unspecified (3) Left foot pain: CODE(S): M79.672 - Pain in left foot (4) Cellulitis of left foot: CODE(S): L03.116 - Cellulitis of left lower limb (5) 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 I reviewed his case via chart review and this included his diagnostic data. Debridement was performed as noted in the clinical nursing panel. Dressing recommendations: Clean, dry, and intact. Patient Engagement Systems was applied over the epi fix and wound veil I recommend application of advanced wound product, epi fix. He was already approved for this and now that his infection is being addressed I recommend resuming this product. There was a breech in application series due to his infection as noted. Verbal consent was obtained and this was applied according standard protocol. This was secured in place with a wound veil and Steri-Strips. 100% of the product was applied. He tolerated this well. He was advised to keep this clean, dry, and intact until next week with a secondary dressing which was also applied today. I recommend continued application because he is responding well with this and he has continued high risk. Wound is stabilizing however osteo is apparent. Updated cultures were obtained last week with Proteus and strep. He was on Augmentin and levofloxacin. Bone was debrided and this was sent to both microbiology and pathology with acute osteo. ID on consult who now updated continued course of Augmentin only.To follow up as scheduled. He had x-ray and lab ordered. Reviewed previously with progressive osseous changes to the remaining fifth metatarsal. It is noted his prior physician ordered an MRI and that was completed earlier today. This was reviewed after clinic with osteomyelitis apparent to the remaining fifth metatarsal and proximal phalanx base which are adjacent to the deep ulcer site. Labs reviewed with white blood cell count 9.8, ESR 37, C-reactive protein 24.9. Patient reports having hemoglobin A1c about 2 to 3 months ago of 9.2%. Patient is noted to have offloaded surgical shoe and wheelchair or crutches for offloading. Offloading Plastizote liners with pocket cut out was fabricated today. Compliance encouraged. I advised him to use 2 crutches a walker or knee roller to completely keep pressure off of this ulcer. Routinely grazing the foot on the ground with the use of one crutch is probably not adequate. 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 Patient is also noted to have vascular studies done on 04/29/2021 demonstrating triphasic waveforms to PT and DP bilaterally with mild degree of large vessel disease despite noncompressible vessels. Right TBI was 0.78 and left TBI was 0.47 possibly consistent with small vessel disease. Vascular surgery referral was previously provided. Discussed importance of smoking cessation, blood sugar control, weight management, offloading, proper nutrition, infection control and hygiene to optimize healing potential. Tubigrip was applied. 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 Discussed trying to elevate as much as possible. All questions answered. Reviewed concerning signs and symptoms to watch out for and to contact office if any of these present or go to the emergency room. To follow-up with the wound healing center in 1 week. He is at significant risk of amputation and limb loss due to his uncontrolled diabetes and bone infection status. He elects to proceed forward limb salvage with wound care and antibiotics at this time. This note was generated with Dragon dictation software. It may contain incorrect words, spelling, and punctuation that were not noted in checking the note before signing. He understands he is at risk for limb loss including amputations and further systemic illness.
[2021-11-13 11:34] VITALS: BP 151/92; PULSE 89; RESP 18; TEMP 36.2; BMI 35.6
--- NOTE | 2021-11-13 20:01 | PN.PCM_ITS ---
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 Patient has significant medical history including diabetes, hypertension, coronary artery disease, anemia, aortic martinez artery bypass grafting. Patient underwent previous surgical debridement of the wound with Dr. Gerber on 04/28/2021. He was previously progressing well with the wound healing center under comprehensive management and even underwent serial applications of advanced wound healing product, epi fix. He is being treated for osteomyelitis and has an MRI was completed previously to confirm this diagnosis. He is under care of infectious disease specialist, Dr. Arrieta. He has been reducing weight on this in a surgical shoe. He kept his epi fix product in place this past week as advised. He is doing very well. Progress of Wound: improving Objective Data Objective Data Vital Signs: Vital Signs Temp Pulse Resp BP 97.1 F L 89 18 151/92 H 11/13/21 11:34 11/13/21 11:34 11/13/21 11:34 11/13/21 11:34 Weight: 122.47 kg Body Mass Index (BMI) 35.6 Physical Exam Narrative Skin Wound Narrative: ulcer noted to left lateral foot down to the level of bone with no longer exposure of bone. The base is granular. No malodor, purulence, fluctuation, crepitus. There is resolved erythema and no longer visualized bone. Skin is atrophic and hairless. reduced ulcer size noted. Edema noted to the left lower extremity VASC Pulses are palpable 2 out of 4. Capillary refill time is less than 2 seconds to digits MSK Muscle strength 5 out of 5 for all pedal groups NEURO Minor decrease in epicritic sensation noted. Patient also noted to be hypersensitive Debridement Note Debridement Note Wound debrided: Lateral left forefoot Wound Grade/Stage: 3 Type of Debridement: Excisional debridement Anesthesia Used: 4% Lidocaine Solution Depth: in the subcutaneous layer Percentage of wound debrided: 100 Instrument Used: #15 blade Tissue Removed: fibrous, devitalized subcutaneous, biofilm, slough Severity: Fat Layer Exposed Amount of bleeding with debridement: Mild Bleeding Controlled with: Pressure Patient tolerated procedure: Patient tolerated procedure well Post-Debridement Measurements and Additional Note: Post-Debridement Measurements/Treatment WC - Nurse 1 - General Ulcer Assessment Start: 11/06/21 11:24 Freq: Status: Active Protocol: MARILYN Activity Type Activity Date Activity User E-Sign Co-Sign Detail Recorded Client Recorded Date Recorded By Document 11/06/21 11:24 [email or web address] [id number] 11/06/21 11:25 KR Document 11/13/21 11:34 RB [id number] 11/13/21 11:38 RB 11/06/21 11/13/21 11:24 11:34 - Today's Visit Information Type of service Follow-up Visit Follow-up Visit (Physician/REGIONAL ACCOUNT MANAGER (Physician/REGIONAL ACCOUNT MANAGER ) ) Arrival Mode Ambulatory Ambulatory Transfer Assistance None Patient Identification Verified (Name & Yes Yes ) Patient Requires Transmission-Based No Precautions Height and Weight Body Mass Index (BMI) 35.6 35.6 BMI Classification Obese Obese Vital Signs Temperature (97.8 F-99.1 F) 97.3 F L 97.1 F L Temperature Source Temporal Temporal Pulse Rate (60-100) 86 89 Pulse Location Monitor Monitor Respiratory Rate (12-18) 18 Respiratory rate source Observation Blood Pressure (90/60-120/80) 138/67 H 151/92 H Blood Pressure Mean (mm Hg) 90 111 Source Monitor Monitor Position Semi-Fowlers Semi-Fowlers Blood Pressure Location Right Arm Left Arm History Since Last Visit- (Skip if this is Patient's initial visit) Have you changed medications since your No No last visit? Any new allergies or adverse reactions No No Had a fall/change in ADL's that may No No increase risk of falls Signs or symptoms of abuse and/or No No neglect since last visit Have you been in the hospital since your No No last visit? Has dressing in place as prescribed Yes Yes Has compression in place as prescribed N/A Yes Has offloadiing in place as prescribed N/A No Experienced any changes in pain level or No No management Left Footwear Regular Shoe Right Footwear Removable Cast Walker/Walking Boot Pain Scale: 0-10 Numeric Is Patient Pain Free? Yes - Nurse 1 - General Ulcer Measurement Start: 11/06/21 11:24 Freq: Status: Active Protocol: Activity Type Activity Date Activity User E-Sign Co-Sign Detail Recorded Client Recorded Date Recorded By Document 11/06/21 11:24 DEEPIKA [id number] 01/05/22 11:25 KR Document 11/13/21 11:34 RB [id number] 11/13/21 11:38 RB 11/06/21 11/13/21 11:24 11:34 Wound Center Nurse 1 #1 Left Lat Foot Post Op -Combined with other wound No -Current Size (cm) - Length 0.2 0.7 -Current Size (cm) - Width 0.6 0.4 -Current Size (cm) - Depth 0.3 0.2 -Total Square Cm 0.12 0.28 -Tunneling No -Undermining/Tunneling No -Circular Undermining No -Exudate Amt Small Medium -Exudate Type Yellow/Green Serosanguineous -Wound Margin Distinct, Thickened Outline Attached -Granulation Amt Large (67-100%) Medium (34-66%) -Granulation Quality Grandy Grandy -Slough/Fibrin Yes -Necrosis Amt None Present (0 Small (1-33%) %) -Necrotic Tissue Type Adherent Slough -Structure Exposed N/A -Texture (Anna-wound Skin Appearance) Callus Assessed,Callus -Moisture (Anna-wound Skin Appearance) No Abnormality, Assessed Assessed -Color (Anna-wound Skin Appearance) No Abnormality, Assessed Assessed -Temperature (Anna-wound Skin No Abnormality No Abnormality Appearance) (Pt Warm) (Pt Warm) -Tenderness on Palpation (Anna-wound No No Skin Appearance) -Ulcer Cleansing Rinsed/ Wound Cleanser Irrigated with Saline -Foul Odor after Cleansing No No -Anesthetic Used 4% Lidocaine 5% Lidocaine Solution Gel WC - Nurse 2 - General Ulcer CM Notes Start: 11/06/21 11:24 Freq: Status: Active Protocol: Activity Type Activity Date Activity User E-Sign Co-Sign Detail Recorded Client Recorded Date Recorded By Document 11/06/21 11:30 [id number] 11/06/21 11:35 Document 11/13/21 11:53 [id number] 11/13/21 11:58 11/06/21 11/13/21 11:30 11:53 Wound Center Nurse 2 #1 Left Lat Foot Post Op -Time 11:30 11:56 -Correct Patient Yes Yes -Correct Side, Site, Position Yes Yes -Correct Procedure Yes Yes -Procedure Performed Yes Yes -Type of Procedure Debridement Debridement -Clinical Debridement Subcutaneous Subcutaneous -Tissue Removed Subcutaneous Subcutaneous -Post Debridement (cm) - Length 0.3 0.8 -Post Debridement (cm) - Width 1.0 0.4 -Post Debridement (cm) - Depth 0.3 0.2 -Total Square (Post) (cm) 0.30 0.32 -Area of Debridement (cm) - Length 0.3 0.8 -Area of Debridement (cm) - Width 1.0 0.4 -Total Square (Area) (cm) 0.30 0.32 -Tunneling No No -Undermining/Tunneling No No -Circular Undermining No No -Wound/Ulcer Outcome Not Healed Not Healed -Ulcer Cleansing Rinsed/ Rinsed/ Irrigated with Irrigated with Saline Saline -Foul Odor after Cleansing No No -Bioengineered Tissue Yes Yes -Type of Bioengineered Tissue Epifix 18mm Epifix 18mm Disc Disc -Expiration Date 07/03/26 08/02/26 -Product Lot Number [id number] -Percent Used 100 100 -Lot number of Saline Used [id number] -Bleeding Controlled with Pressure Pressure -Offloading Yes Yes -Type of Offloading Surgical Shoe Surgical Shoe -Treatment Response Procedure Procedure Tolerated Well Tolerated Well -Debridement - Subq, 1st 20sq cm No No -Apply Skin Sub - 1st 25 sq cm - Feet 1 1 -Epifix 18mm Disc 3 3 Pain Scale: 0-10 Numeric Is Patient Pain Free? Yes Yes WC - Nurse 3 - General Ulcer D/C NN Start: 11/06/21 11:24 Freq: Status: Active Protocol: Activity Type Activity Date Activity User E-Sign Co-Sign Detail Recorded Client Recorded Date Recorded By Document 11/06/21 11:38 AK [id number] 11/06/21 11:40 AK Document 11/13/21 11:58 JF [id number] 11/13/21 12:04 JF 11/06/21 11/13/21 11:38 11:58 Wound Care Nurse 3 #1 Left Lat Foot Post Op -Ulcer Cleansing Rinsed/ Irrigated with Saline -Foul Odor after Cleansing No No -Negative Pressure Wound Therapy N/A -Primary Dressing Applied Mepilex Border -Primary Dressing Covered/Secured with Dry Gauze, Secured with Tape -Mepilex Border 1 Left -Size of Tubigrip Used Size E Size E Pain Scale: 0-10 Numeric Is Patient Pain Free? Yes WC - Visit Discharge Discharge Condition Stable Stable Ambulatory Status Ambulatory Transportation Private Auto Private Auto Accompanied by Medication Reconcilliation completed & No Yes provided to patient/care provider Clinical Summary of Care Provided Yes Yes Assessment/Plan Assessment/Plan (1) Type 2 diabetes mellitus with diabetic polyneuropathy: CODE(S): E11.42 - Type 2 diabetes mellitus with diabetic polyneuropathy (2) Obesity: CODE(S): E66.9 - Obesity, unspecified (3) Left foot pain: CODE(S): M79.672 - Pain in left foot (4) Cellulitis of left foot: CODE(S): L03.116 - Cellulitis of left lower limb (5) 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 I reviewed his case via chart review and this included his diagnostic data. Debridement was performed as noted in the clinical nursing panel. Dressing recommendations: Clean, dry, and intact. Aquacel Ag was applied over the epi fix and wound veil I recommend application of advanced wound product, epi fix. He was already approved for this and now that his infection is being addressed I recommend resuming this product. There was a breech in application series due to his infection as noted. Verbal consent was obtained and this was applied according standard protocol. This was secured in place with a wound veil and Steri- Strips. 100% of the product was applied. He tolerated this well. He was advised to keep this clean, dry, and intact until next week with a secondary dressing which was also applied today. I recommend continued application because he is responding well with this and he has continued high risk. Wound is stabilizing however osteo is apparent. Updated cultures were obtained last week with Proteus and strep. He was on Augmentin and levofloxacin. Bone was debrided and this was sent to both microbiology and pathology with acute osteo. ID on consult who now updated continued course of Augmentin only.To follow up as scheduled. He had x-ray and lab ordered. Reviewed previously with progressive osseous changes to the remaining fifth metatarsal. It is noted his prior physician ordered an MRI and that was completed earlier today. This was reviewed after clinic with osteomyelitis apparent to the remaining fifth metatarsal and proximal phalanx base which are adjacent to the deep ulcer site. Labs reviewed with white blood cell count 9.8, ESR 37, C-reactive protein 24.9. Patient reports having hemoglobin A1c about 2 to 3 months ago of 9.2%. Patient is noted to have offloaded surgical shoe and wheelchair or crutches for offloading. Offloading Plastizote liners with pocket cut out was fabricated today. Compliance encouraged. I advised him to use 2 crutches a walker or knee roller to completely keep pressure off of this ulcer. Routinely grazing the foot on the ground with the use of one crutch is probably not adequate. 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 Patient is also noted to have vascular studies done on 04/29/2021 demonstrating triphasic waveforms to PT and DP bilaterally with mild degree of large vessel disease despite noncompressible vessels. Right TBI was 0.78 and left TBI was 0.47 possibly consistent with small vessel disease. Vascular surgery referral was previously provided. Discussed importance of smoking cessation, blood sugar control, weight management, offloading, proper nutrition, infection control and hygiene to optimize healing potential. Tubigrip was applied. 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 Discussed trying to elevate as much as possible. All questions answered. Reviewed concerning signs and symptoms to watch out for and to contact office if any of these present or go to the emergency room. To follow-up with the wound healing center in 1 week. He is at significant risk of amputation and limb loss due to his uncontrolled diabetes and bone infection status. He elects to proceed forward limb salvage with wound care and antibiotics at this time. This note was generated with [employer] dictation software. It may contain incorrect words, spelling, and punctuation that were not noted in checking the note before signing. He understands he is at risk for limb loss including amputations and further systemic illness.
[2021-11-20 11:15] VITALS: BP 148/86; PULSE 96; RESP 20; TEMP 36.9; BMI 35.6
--- NOTE | 2021-11-20 15:29 | PCM.WC.PN ---
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 Patient has significant medical history including diabetes, hypertension, coronary artery disease, anemia, aortic martinez artery bypass grafting. Patient underwent previous surgical debridement of the wound with Dr. Gerber on 04/28/2021. He was previously progressing well with the wound healing center under comprehensive management and even underwent serial applications of advanced wound healing product, epi fix. He is being treated for osteomyelitis and has an MRI was completed previously to confirm this diagnosis. He is under care of infectious disease specialist, Dr. Arrieta. He has been reducing weight on this in a surgical shoe. He kept his epi fix product in place this past week as advised. He is doing very well. He uses a knee roller. Progress of Wound: improving Objective Data Objective Data Vital Signs: Vital Signs Temp Pulse Resp BP 98.5 F 96 20 H 148/86 H 11/20/21 11:15 11/20/21 11:15 11/20/21 11:15 11/20/21 11:15 Weight: 122.47 kg Body Mass Index (BMI) 35.6 Physical Exam Narrative Skin Wound Narrative: ulcer noted to left lateral foot down to the level of bone with no longer exposure of bone. The base is granular. No malodor, purulence, fluctuation, crepitus. There is resolved erythema and no longer visualized bone. Skin is atrophic and hairless. reduced ulcer size noted. Edema noted to the left lower extremity VASC Pulses are palpable 2 out of 4. Capillary refill time is less than 2 seconds to digits MSK Muscle strength 5 out of 5 for all pedal groups NEURO Minor decrease in epicritic sensation noted. Patient also noted to be hypersensitive Debridement Note Debridement Note Wound debrided: Left foot Wound Grade/Stage: 3 Type of Debridement: Excisional debridement Anesthesia Used: 4% Lidocaine Solution Depth: in the subcutaneous layer Percentage of wound debrided: 100 Instrument Used: #15 blade Tissue Removed: fibrous, devitalized subcutaneous, biofilm, slough Severity: Fat Layer Exposed Amount of bleeding with debridement: Mild Bleeding Controlled with: Pressure Patient tolerated procedure: Patient tolerated procedure well Post-Debridement Measurements and Additional Note: Post-Debridement Measurements/Treatment WC - Nurse 1 - General Ulcer Assessment Start: 11/06/21 11:24 Freq: Status: Active Protocol: WC.LOWEXT Activity Type Activity Date Activity User E-Sign Co-Sign Detail Recorded Client Recorded Date Recorded By Document 11/06/21 11:24 KR [id number] 11/06/21 11:25 KR Document 11/13/21 11:34 RB [id number] 11/13/21 11:38 RB Document 11/20/21 11:15 DL [id number] 11/20/21 11:20 DL 11/06/21 11/13/21 11/20/21 11:24 11:34 11:15 WC - Today's Visit Information Type of service Follow-up Visit Follow-up Visit Follow-up Visit (Physician/BOTTLE MACHINE OPERATOR (Physician/BOTTLE MACHINE OPERATOR (Physician/BOTTLE MACHINE OPERATOR ) ) ) Arrival Mode Ambulatory Ambulatory Ambulatory Transfer Assistance None None Patient Identification Verified (Name & Yes Yes Yes ) Patient Requires Transmission-Based No No Precautions Height and Weight Body Mass Index (BMI) 35.6 35.6 35.6 BMI Classification Obese Obese Obese Vital Signs Temperature (97.8 F-99.1 F) 97.3 F L 97.1 F L 98.5 F Temperature Source Temporal Temporal Temporal Pulse Rate (60-100) 86 89 96 Pulse Location Monitor Monitor Monitor Respiratory Rate (12-18) 18 20 H Respiratory rate source Observation Observation Blood Pressure (90/60-120/80) 138/67 H 151/92 H 148/86 H Blood Pressure Mean (mm Hg) 90 111 106 Source Monitor Monitor Monitor Position Semi-Fowlers Semi-Fowlers Blood Pressure Location Right Arm Left Arm History Since Last Visit- (Skip if this is Patient's initial visit) Have you changed medications since your No No No last visit? Any new allergies or adverse reactions No No No Had a fall/change in ADL's that may No No No increase risk of falls Signs or symptoms of abuse and/or No No No neglect since last visit Have you been in the hospital since your No No No last visit? Has dressing in place as prescribed Yes Yes Yes Has compression in place as prescribed N/A Yes Yes Has offloadiing in place as prescribed N/A No Yes Experienced any changes in pain level or No No No management Left Footwear Regular Shoe Surgical Shoe with pressure relief insole Right Footwear Removable Cast Walker/Walking Boot Pain Scale: 0-10 Numeric Is Patient Pain Free? Yes Yes WC - Nurse 1 - General Ulcer Measurement Start: 11/06/21 11:24 Freq: Status: Active Protocol: Activity Type Activity Date Activity User E-Sign Co-Sign Detail Recorded Client Recorded Date Recorded By Document 11/06/21 11:24 KR [id number] 11/06/21 11:25 KR Document 11/13/21 11:34 RB [id number] 11/13/21 11:38 RB Document 11/20/21 11:15 DL [id number] 11/20/21 11:20 DL 11/06/21 11/13/21 11/20/21 11:24 11:34 11:15 Wound Center Nurse 1 #1 Left Lat Foot Post Op -Combined with other wound No -Current Size (cm) - Length 0.2 0.7 0.2 -Current Size (cm) - Width 0.6 0.4 0.3 -Current Size (cm) - Depth 0.3 0.2 0.2 -Total Square Cm 0.12 0.28 0.06 -Photo Taken No -Tunneling No -Undermining/Tunneling No -Circular Undermining No -Exudate Amt Small Medium Small -Exudate Type Yellow/Green Serosanguineous Serosanguineous -Wound Margin Distinct, Thickened Thickened Outline Attached -Granulation Amt Large (67-100%) Medium (34-66%) None Present (0 %) -Granulation Quality Melvina Melvina -Slough/Fibrin Yes -Necrosis Amt None Present (0 Small (1-33%) Large (67-100%) %) -Necrotic Tissue Type Adherent Slough Adherent Slough -Structure Exposed N/A N/A -Texture (Anna-wound Skin Appearance) Callus Assessed,Callus Callus,Scarring -Moisture (Anna-wound Skin Appearance) No Abnormality, Assessed Dry/Scaly Assessed -Color (Anna-wound Skin Appearance) No Abnormality, Assessed No Abnormality Assessed -Temperature (Anna-wound Skin No Abnormality No Abnormality No Abnormality Appearance) (Pt Warm) (Pt Warm) (Pt Warm) -Tenderness on Palpation (Anna-wound No No No Skin Appearance) -Ulcer Cleansing Rinsed/ Wound Cleanser Soap and Water Irrigated with Saline -Foul Odor after Cleansing No No No -Anesthetic Used 4% Lidocaine 5% Lidocaine 5% Lidocaine Solution Gel Gel WC - Nurse 2 - General Ulcer CM Notes Start: 11/06/21 11:24 Freq: Status: Active Protocol: Activity Type Activity Date Activity User E-Sign Co-Sign Detail Recorded Client Recorded Date Recorded By Document 11/06/21 11:30 [id number] 11/06/21 11:35 Document 11/13/21 11:53 [id number] 11/13/21 11:58 Document 11/20/21 11:22 [id number] 11/20/21 11:25 11/06/21 11/13/21 11/20/21 11:30 11:53 11:22 Wound Center Nurse 2 #1 Left Lat Foot Post Op -Time 11:30 11:56 11:24 -Correct Patient Yes Yes Yes -Correct Side, Site, Position Yes Yes Yes -Correct Procedure Yes Yes Yes -Procedure Performed Yes Yes Yes -Type of Procedure Debridement Debridement Debridement -Clinical Debridement Subcutaneous Subcutaneous Subcutaneous -Tissue Removed Subcutaneous Subcutaneous Subcutaneous -Post Debridement (cm) - Length 0.3 0.8 0.8 -Post Debridement (cm) - Width 1.0 0.4 0.3 -Post Debridement (cm) - Depth 0.3 0.2 0.3 -Total Square (Post) (cm) 0.30 0.32 0.24 -Area of Debridement (cm) - Length 0.3 0.8 0.8 -Area of Debridement (cm) - Width 1.0 0.4 0.3 -Total Square (Area) (cm) 0.30 0.32 0.24 -Tunneling No No No -Undermining/Tunneling No No No -Circular Undermining No No No -Wound/Ulcer Outcome Not Healed Not Healed Not Healed -Ulcer Cleansing Rinsed/ Rinsed/ Rinsed/ Irrigated with Irrigated with Irrigated with Saline Saline Saline -Foul Odor after Cleansing No No No -Bioengineered Tissue Yes Yes Yes -Type of Bioengineered Tissue Epifix 18mm Epifix 18mm Epifix 18mm Disc Disc Disc -Expiration Date 07/03/26 08/02/26 08/02/26 -Product Lot Number [id number] -Percent Used 100 100 100 -Lot number of Saline Used [id number] -Bleeding Controlled with Pressure Pressure Pressure -Offloading Yes Yes Yes -Type of Offloading Surgical Shoe Surgical Shoe Surgical Shoe -Treatment Response Procedure Procedure Procedure Tolerated Well Tolerated Well Tolerated Well -Debridement - Subq, 1st 20sq cm No No No -Apply Skin Sub - 1st 25 sq cm - Feet 1 1 1 -Epifix 18mm Disc 3 3 3 Pain Scale: 0-10 Numeric Is Patient Pain Free? Yes Yes Yes - Nurse 3 - General Ulcer D/C NN Start: 11/06/21 11:24 Freq: Status: Active Protocol: Activity Type Activity Date Activity User E-Sign Co-Sign Detail Recorded Client Recorded Date Recorded By Document 11/06/21 11:38 NM [id number] 11/06/21 11:40 AK Document 11/13/21 11:58 [id number] 11/13/21 12:04 Document 11/20/21 11:37 DL [id number] 11/20/21 11:38 DL 11/06/21 11/13/21 11/20/21 11:38 11:58 11:37 Wound Care Nurse 3 #1 Left Lat Foot Post Op -Ulcer Cleansing Rinsed/ Irrigated with Saline -Foul Odor after Cleansing No No No -Negative Pressure Wound Therapy N/A -Primary Dressing Applied Mepilex Border -Other Dressing EpiFix -Primary Dressing Covered/Secured with Dry Gauze, Dry Gauze, Secured with Secured with Tape Tape -Mepilex Border 1 Left -Tubular Bandage Double Layer -Size of Tubigrip Used Size E Size E Size E -Size E ($) 2 Treatment Response Procedure Tolerated Well Pain Scale: 0-10 Numeric Is Patient Pain Free? Yes Yes - Visit Discharge Discharge Condition Stable Stable Stable Ambulatory Status Ambulatory Ambulatory Transportation Private Auto Private Auto Private Auto Accompanied by Medication Reconcilliation completed & No Yes provided to patient/care provider Clinical Summary of Care Provided Yes Yes Assessment/Plan Assessment/Plan (1) Type 2 diabetes mellitus with diabetic polyneuropathy: CODE(S): E11.42 - Type 2 diabetes mellitus with diabetic polyneuropathy (2) Obesity: CODE(S): E66.9 - Obesity, unspecified (3) Left foot pain: CODE(S): M79.672 - Pain in left foot (4) Cellulitis of left foot: CODE(S): L03.116 - Cellulitis of left lower limb (5) 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 I reviewed his case via chart review and this included his diagnostic data. Debridement was performed as noted in the clinical nursing panel. Dressing recommendations: Clean, dry, and intact. Aquacel Ag was applied over the epi fix and wound veil I recommend application of advanced wound product, epi fix. He was already approved for this and now that his infection is being addressed I recommend resuming this product. There was a breech in application series due to his infection as noted. Verbal consent was obtained and this was applied according standard protocol. This was secured in place with a wound veil and Steri-Strips. 100% of the product was applied. He tolerated this well. He was advised to keep this clean, dry, and intact until next week with a secondary dressing which was also applied today. I recommend continued application because he is responding well with this and he has continued high risk. Wound is stabilizing however osteo is apparent. Updated cultures were obtained last week with Proteus and strep. He was on Augmentin and levofloxacin. Bone was debrided and this was sent to both microbiology and pathology with acute osteo. ID on consult who now updated continued course of Augmentin only.To follow up as scheduled. He had x-ray and lab ordered. Reviewed previously with progressive osseous changes to the remaining fifth metatarsal. It is noted his prior physician ordered an MRI and that was completed earlier today. This was reviewed after clinic with osteomyelitis apparent to the remaining fifth metatarsal and proximal phalanx base which are adjacent to the deep ulcer site. Labs reviewed with white blood cell count 9.8, ESR 37, C-reactive protein 24.9. Patient reports having hemoglobin A1c about 2 to 3 months ago of 9.2%. Patient is noted to have offloaded surgical shoe and wheelchair or crutches for offloading. Offloading Plastizote liners with pocket cut out was fabricated today. Compliance encouraged. I advised him to use 2 crutches a walker or knee roller to completely keep pressure off of this ulcer. Routinely grazing the foot on the ground with the use of one crutch is probably not adequate. 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 Patient is also noted to have vascular studies done on 04/29/2021 demonstrating triphasic waveforms to PT and DP bilaterally with mild degree of large vessel disease despite noncompressible vessels. Right TBI was 0.78 and left TBI was 0.47 possibly consistent with small vessel disease. Vascular surgery referral was previously provided. Discussed importance of smoking cessation, blood sugar control, weight management, offloading, proper nutrition, infection control and hygiene to optimize healing potential. Tubigrip was applied. 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 Discussed trying to elevate as much as possible. All questions answered. Reviewed concerning signs and symptoms to watch out for and to contact office if any of these present or go to the emergency room. To follow-up with the wound healing center in 1 week. He is at significant risk of amputation and limb loss due to his uncontrolled diabetes and bone infection status. This note was generated with [employer] dictation software. It may contain incorrect words, spelling, and punctuation that were not noted in checking the note before signing. He understands he is at risk for limb loss including amputations and further systemic illness.
[2021-11-27 11:20] VITALS: BP 155/87; PULSE 80; RESP 18; TEMP 36.3; BMI 35.6
--- NOTE | 2021-11-27 11:53 | PN.PCM_ITS ---
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 Patient has significant medical history including diabetes, hypertension, coronary artery disease, anemia, aortic martinez artery bypass grafting. Patient underwent previous surgical debridement of the wound with Dr. Gerber on 04/28/2021. He was previously progressing well with the wound healing center under comprehensive management and even underwent serial applications of advanced wound healing product, epi fix. He is being treated for osteomyelitis and has an MRI was completed previ ously to confirm this diagnosis. He is under care of infectious disease specialist, Dr. Arrieta. He has been reducing weight on this in a surgical shoe. 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 He has not been using his knee roller while not at work. Progress of Wound: improving Objective Data Objective Data Vital Signs: Vital Signs Temp Pulse Resp BP 97.4 F L 80 18 155/87 H 11/27/21 11:20 11/27/21 11:20 11/27/21 11:20 11/27/21 11:20 Weight: 122.47 kg Body Mass Index (BMI) 35.6 Physical Exam Narrative Skin Wound Narrative: ulcer noted to left lateral foot down to the level of bone with no longer exposure of bone. The base is granular. No malodor, purulence, fluctuation, crepitus. There is no erythema and no longer visualized bone. Skin is atrophic and hairless. reduced ulcer size noted. Edema noted to the left lower extremity VASC Pulses are palpable 2 out of 4. Capillary refill time is less than 2 seconds to digits MSK Muscle strength 5 out of 5 for all pedal groups NEURO Minor decrease in epicritic sensation noted. Patient also noted to be hypersensitive Debridement Note Debridement Note Wound debrided: plantar lateral left foot Wound Grade/Stage: 3 Type of Debridement: Excisional debridement Anesthesia Used: 4% Lidocaine Solution Depth: in the subcutaneous layer Percentage of wound debrided: 100 Instrument Used: #15 blade Tissue Removed: fibrous, devitalized subcutaneous, biofilm, slough Severity: Fat Layer Exposed Amount of bleeding with debridement: Mild Bleeding Controlled with: Pressure Patient tolerated procedure: Patient tolerated procedure well Post-Debridement Measurements and Additional Note: Post-Debridement Measurements/Treatment WC - Nurse 1 - General Ulcer Assessment Start: 11/06/21 11:24 Freq: Status: Active Protocol: MARILYN Activity Type Activity Date Activity User E-Sign Co-Sign Detail Recorded Client Recorded Date Recorded By Document 11/06/21 11:24 KR [id number] 11/06/21 11:25 KR Document 11/13/21 11:34 RB [id number] 11/13/21 11:38 RB Document 11/20/21 11:15 DL [id number] 11/20/21 11:20 DL Document 11/27/21 11:20 RB [id number] 11/27/21 11:28 RB 11/06/21 11/13/21 11/20/21 11:24 11:34 11:15 WC - Today's Visit Information Type of service Follow-up Visit Follow-up Visit Follow-up Visit (Physician/OSHA INSPECTOR (Physician/OSHA INSPECTOR (Physician/OSHA INSPECTOR ) ) ) Arrival Mode Ambulatory Ambulatory Ambulatory Transfer Assistance None None Patient Identification Verified (Name & Yes Yes Yes ) Patient Requires Transmission-Based No No Precautions Height and Weight Body Mass Index (BMI) 35.6 35.6 35.6 BMI Classification Obese Obese Obese Vital Signs Temperature (97.8 F-99.1 F) 97.3 F L 97.1 F L 98.5 F Temperature Source Temporal Temporal Temporal Pulse Rate (60-100) 86 89 96 Pulse Location Monitor Monitor Monitor Respiratory Rate (12-18) 18 20 H Respiratory rate source Observation Observation Blood Pressure (90/60-120/80) 138/67 H 151/92 H 148/86 H Blood Pressure Mean (mm Hg) 90 111 106 Source Monitor Monitor Monitor Position Semi-Fowlers Semi-Fowlers Blood Pressure Location Right Arm Left Arm History Since Last Visit- (Skip if this is Patient's initial visit) Have you changed medications since your No No No last visit? Any new allergies or adverse reactions No No No Had a fall/change in ADL's that may No No No increase risk of falls Signs or symptoms of abuse and/or No No No neglect since last visit Have you been in the hospital since your No No No last visit? Has dressing in place as prescribed Yes Yes Yes Has compression in place as prescribed N/A Yes Yes Has offloadiing in place as prescribed N/A No Yes Experienced any changes in pain level or No No No management Left Footwear Regular Shoe Surgical Shoe with pressure relief insole Right Footwear Removable Cast Walker/Walking Boot Pain Scale: 0-10 Numeric Is Patient Pain Free? Yes Yes 11/27/21 11:20 WC - Today's Visit Information Type of service Follow-up Visit (Physician/OSHA INSPECTOR ) Arrival Mode Ambulatory Transfer Assistance None Patient Identification Verified (Name & Yes ) Patient Requires Transmission-Based Precautions Height and Weight Body Mass Index (BMI) 35.6 BMI Classification Obese Vital Signs Temperature (97.8 F-99.1 F) 97.4 F L Temperature Source Temporal Pulse Rate (60-100) 80 Pulse Location Monitor Respiratory Rate (12-18) 18 Respiratory rate source Observation Blood Pressure (90/60-120/80) 155/87 H Blood Pressure Mean (mm Hg) 109 Source Monitor Position Semi-Fowlers Blood Pressure Location Left Arm History Since Last Visit- (Skip if this is Patient's initial visit) Have you changed medications since your No last visit? Any new allergies or adverse reactions No Had a fall/change in ADL's that may No increase risk of falls Signs or symptoms of abuse and/or No neglect since last visit Have you been in the hospital since your No last visit? Has dressing in place as prescribed Yes Has compression in place as prescribed Yes Has offloadiing in place as prescribed Yes Experienced any changes in pain level or No management Left Footwear Right Footwear Pain Scale: 0-10 Numeric Is Patient Pain Free? Yes - Nurse 1 - General Ulcer Measurement Start: 11/06/21 11:24 Freq: Status: Active Protocol: Activity Type Activity Date Activity User E-Sign Co-Sign Detail Recorded Client Recorded Date Recorded By Document 11/06/21 11:24 KR [id number] 11/06/21 11:25 KR Document 11/13/21 11:34 RB [id number] 11/13/21 11:38 RB Document 11/20/21 11:15 DL [id number] 11/20/21 11:20 DL Document 11/27/21 11:20 RB [id number] 11/27/21 11:28 RB 11/06/21 11/13/21 11/20/21 11:24 11:34 11:15 Wound Center Nurse 1 #1 Left Lat Foot Post Op -Combined with other wound No -Current Size (cm) - Length 0.2 0.7 0.2 -Current Size (cm) - Width 0.6 0.4 0.3 -Current Size (cm) - Depth 0.3 0.2 0.2 -Total Square Cm 0.12 0.28 0.06 -Photo Taken No -Tunneling No -Undermining/Tunneling No -Circular Undermining No -Exudate Amt Small Medium Small -Exudate Type Yellow/Green Serosanguineous Serosanguineous -Wound Margin Distinct, Thickened Thickened Outline Attached -Granulation Amt Large (67-100%) Medium (34-66%) None Present (0 %) -Granulation Quality [place] -Slough/Fibrin Yes -Necrosis Amt None Present (0 Small (1-33%) Large (67-100%) %) -Necrotic Tissue Type Adherent Slough Adherent Slough -Structure Exposed N/A N/A -Texture (Anna-wound Skin Appearance) Callus Assessed,Callus Callus,Scarring -Moisture (Anna-wound Skin Appearance) No Abnormality, Assessed Dry/Scaly Assessed -Color (Anna-wound Skin Appearance) No Abnormality, Assessed No Abnormality Assessed -Temperature (Anna-wound Skin No Abnormality No Abnormality No Abnormality Appearance) (Pt Warm) (Pt Warm) (Pt Warm) -Tenderness on Palpation (Anna-wound No No No Skin Appearance) -Ulcer Cleansing Rinsed/ Wound Cleanser Soap and Water Irrigated with Saline -Foul Odor after Cleansing No No No -Anesthetic Used 4% Lidocaine 5% Lidocaine 5% Lidocaine Solution Gel Gel 11/27/21 11:20 Wound Center Nurse 1 #1 Left Lat Foot Post Op -Combined with other wound No -Current Size (cm) - Length 0.1 -Current Size (cm) - Width 0.1 -Current Size (cm) - Depth 0.1 -Total Square Cm 0.01 -Photo Taken -Tunneling No -Undermining/Tunneling No -Circular Undermining No -Exudate Amt None Present -Exudate Type -Wound Margin Thickened -Granulation Amt Medium (34-66%) -Granulation Quality [place] -Slough/Fibrin Yes -Necrosis Amt Large (67-100%) -Necrotic Tissue Type Adherent Slough -Structure Exposed N/A -Texture (Anna-wound Skin Appearance) Callus -Moisture (Anna-wound Skin Appearance) Assessed -Color (Anna-wound Skin Appearance) Assessed -Temperature (Anna-wound Skin No Abnormality Appearance) (Pt Warm) -Tenderness on Palpation (Anna-wound No Skin Appearance) -Ulcer Cleansing Wound Cleanser -Foul Odor after Cleansing No -Anesthetic Used 5% Lidocaine Gel WC - Nurse 2 - General Ulcer CM Notes Start: 11/06/21 11:24 Freq: Status: Active Protocol: Activity Type Activity Date Activity User E-Sign Co-Sign Detail Recorded Client Recorded Date Recorded By Document 11/06/21 11:30 [id number] 11/06/21 11:35 Document 11/13/21 11:53 [id number] 11/13/21 11:58 Document 11/20/21 11:22 [id number] 11/20/21 11:25 Document 11/27/21 11:31 [id number] 11/27/21 11:37 11/06/21 11/13/21 11/20/21 11:30 11:53 11:22 Wound Center Nurse 2 #1 Left Lat Foot Post Op -Time 11:30 11:56 11:24 -Correct Patient Yes Yes Yes -Correct Side, Site, Position Yes Yes Yes -Correct Procedure Yes Yes Yes -Procedure Performed Yes Yes Yes -Type of Procedure Debridement Debridement Debridement -Clinical Debridement Subcutaneous Subcutaneous Subcutaneous -Tissue Removed Subcutaneous Subcutaneous Subcutaneous -Post Debridement (cm) - Length 0.3 0.8 0.8 -Post Debridement (cm) - Width 1.0 0.4 0.3 -Post Debridement (cm) - Depth 0.3 0.2 0.3 -Total Square (Post) (cm) 0.30 0.32 0.24 -Area of Debridement (cm) - Length 0.3 0.8 0.8 -Area of Debridement (cm) - Width 1.0 0.4 0.3 -Total Square (Area) (cm) 0.30 0.32 0.24 -Tunneling No No No -Undermining/Tunneling No No No -Circular Undermining No No No -Wound/Ulcer Outcome Not Healed Not Healed Not Healed -Ulcer Cleansing Rinsed/ Rinsed/ Rinsed/ Irrigated with Irrigated with Irrigated with Saline Saline Saline -Foul Odor after Cleansing No No No -Bioengineered Tissue Yes Yes Yes -Type of Bioengineered Tissue Epifix 18mm Epifix 18mm Epifix 18mm Disc Disc Disc -Expiration Date 07/03/26 08/02/26 08/02/26 -Product Lot Number [id number] -Percent Used 100 100 100 -Lot number of Saline Used [id number] -Bleeding Controlled with Pressure Pressure Pressure -Offloading Yes Yes Yes -Type of Offloading Surgical Shoe Surgical Shoe Surgical Shoe -Treatment Response Procedure Procedure Procedure Tolerated Well Tolerated Well Tolerated Well -Debridement - Subq, 1st 20sq cm No No No -Apply Skin Sub - 1st 25 sq cm - Feet 1 1 1 -Epifix 18mm Disc 3 3 3 Pain Scale: 0-10 Numeric Is Patient Pain Free? Yes Yes Yes 11/27/21 11:31 Wound Center Nurse 2 #1 Left Lat Foot Post Op -Time 11:35 -Correct Patient Yes -Correct Side, Site, Position Yes -Correct Procedure Yes -Procedure Performed Yes -Type of Procedure Debridement -Clinical Debridement Subcutaneous -Tissue Removed Subcutaneous -Post Debridement (cm) - Length 1 -Post Debridement (cm) - Width 0.5 -Post Debridement (cm) - Depth 0.2 -Total Square (Post) (cm) 0.5 -Area of Debridement (cm) - Length 1 -Area of Debridement (cm) - Width 0.5 -Total Square (Area) (cm) 0.5 -Tunneling No -Undermining/Tunneling No -Circular Undermining No -Wound/Ulcer Outcome Not Healed -Ulcer Cleansing Rinsed/ Irrigated with Saline -Foul Odor after Cleansing No -Bioengineered Tissue Yes -Type of Bioengineered Tissue Epifix 18mm Disc -Expiration Date 08/02/26 -Product Lot Number [id number] -Percent Used 100 -Lot number of Saline Used [id number] -Bleeding Controlled with Pressure -Offloading Yes -Type of Offloading Surgical Shoe -Treatment Response Procedure Tolerated Well -Debridement - Subq, 1st 20sq cm No -Apply Skin Sub - 1st 25 sq cm - Feet 1 -Epifix 18mm Disc 3 Pain Scale: 0-10 Numeric Is Patient Pain Free? Yes - Nurse 3 - General Ulcer D/C NN Start: 11/06/21 11:24 Freq: Status: Active Protocol: Activity Type Activity Date Activity User E-Sign Co-Sign Detail Recorded Client Recorded Date Recorded By Document 11/06/21 11:38 AK [id number] 11/06/21 11:40 AK Document 11/13/21 11:58 JF [id number] 11/13/21 12:04 JF Document 11/20/21 11:37 DL [id number] 11/20/21 11:38 DL Document 11/27/21 11:40 JF [id number] 11/27/21 11:42 JF 11/06/21 11/13/21 11/20/21 11:38 11:58 11:37 Wound Care Nurse 3 #1 Left Lat Foot Post Op -Ulcer Cleansing Rinsed/ Irrigated with Saline -Foul Odor after Cleansing No No No -Negative Pressure Wound Therapy N/A -Primary Dressing Applied Mepilex Border -Other Dressing EpiFix -Primary Dressing Covered/Secured with Dry Gauze, Dry Gauze, Secured with Secured with Tape Tape -Mepilex Border 1 Left -Tubular Bandage Double Layer -Size of Tubigrip Used Size E Size E Size E -Size E ($) 2 -Other Treatment Response Procedure Tolerated Well Pain Scale: 0-10 Numeric Is Patient Pain Free? Yes Yes - Visit Discharge Discharge Condition Stable Stable Stable Ambulatory Status Ambulatory Ambulatory Transportation Private Auto Private Auto Private Auto Accompanied by Medication Reconcilliation completed & No Yes provided to patient/care provider Clinical Summary of Care Provided Yes Yes 11/27/21 11:40 Wound Care Nurse 3 #1 Left Lat Foot Post Op -Ulcer Cleansing Wound Cleanser -Foul Odor after Cleansing No -Negative Pressure Wound Therapy N/A -Primary Dressing Applied -Other Dressing -Primary Dressing Covered/Secured with Dry Gauze, Secured with Tape -Mepilex Border Left -Tubular Bandage -Size of Tubigrip Used -Size E ($) -Other single tubigrip Treatment Response Procedure Tolerated Well Pain Scale: 0-10 Numeric Is Patient Pain Free? 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 I reviewed his case via chart review and this included his diagnostic data. Debridement was performed as noted in the clinical nursing panel. Dressing recommendations: Clean, dry, and intact. Aquacel Ag was applied over the epi fix and wound veil I recommend application of advanced wound product, epi fix. He was already approved for this and now that his infection is being addressed I recommend resuming this product. There was a breech in application series due to his infection as noted. Verbal consent was obtained and this was applied according standard protocol. This was secured in place with a wound veil and Steri- Strips. 100% of the product was applied. He tolerated this well. He was advised to keep this clean, dry, and intact until next week with a secondary dressing which was also applied today. I recommend continued application because he is responding well with this and he has continued high risk. Wound is stabilizing however osteo is apparent. Updated cultures were obtained last week with Proteus and strep. He was on Augmentin and levofloxacin. Bone was debrided and this was sent to both microbiology and pathology with acute osteo. ID on consult who now updated continued course of Augmentin only.To follow up as scheduled. He had x-ray and lab ordered. Reviewed previously with progressive osseous changes to the remaining fifth metatarsal. It is noted his prior physician ordered an MRI and that was completed earlier today. This was reviewed after clinic with osteomyelitis apparent to the remaining fifth metatarsal and proximal phalanx base which are adjacent to the deep ulcer site. Labs reviewed with white blood cell count 9.8, ESR 37, C-reactive protein 24.9. Patient reports having hemoglobin A1c about 2 to 3 months ago of 9.2%. Patient is noted to have offloaded surgical shoe and wheelchair or crutches for offloading. Offloading Plastizote liners with pocket cut out was fabricated today. Compliance encouraged. I advised him to use 2 crutches a walker or knee roller to completely keep pressure off of this ulcer. Routinely grazing the foot on the ground with the use of one crutch is probably not adequate. 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 Patient is also noted to have vascular studies done on 04/29/2021 demonstrating triphasic waveforms to PT and DP bilaterally with mild degree of large vessel disease despite noncompressible vessels. Right TBI was 0.78 and left TBI was 0.47 possibly consistent with small vessel disease. Vascular surgery referral was previously provided. Discussed importance of smoking cessation, blood sugar control, weight management, offloading, proper nutrition, infection control and hygiene to optimize healing potential. Tubigrip was applied. 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 Discussed trying to elevate as much as possible. All questions answered. Reviewed concerning signs and symptoms to watch out for and to contact office if any of these present or go to the emergency room. To follow-up with the wound healing center in 1 week. He is at significant risk of amputation and limb loss due to his uncontrolled diabetes and bone infection status. This note was generated with [email or web address] software. It may contain incorrect words, spelling, and punctuation that were not noted in checking the note before signing. He understands he is at risk for limb loss including amputations and further systemic illness.
== END 2021-12-02 23:59 ==
LOC: WC 11:30
PROVIDERS: PCP Physician Assistant Medical; Referring Provider Hospitalist; Visit Provider Podiatrist
DX: E11.621 Type 2 diabetes mellitus with foot ulcer (principal); L97.522 Non-pressure chronic ulcer of other part of left foot with fat layer exposed; M86.9 Osteomyelitis, unspecified; E11.42 Type 2 diabetes mellitus with diabetic polyneuropathy; E11.69 Type 2 diabetes mellitus with other specified complication; I25.10 Atherosclerotic heart disease of native coronary artery without angina pectoris; L03.116 Cellulitis of left lower limb; I10 Essential (primary) hypertension; E66.9 Obesity, unspecified; Z68.35 Body mass index [BMI] 35.0-35.9, adult
CPT/HCPCS: 15275; Q4186

== ENCOUNTER 2021-12-25 09:45 | Outpatient (RCR) | payer BC, MEDICAID, SELFPAY ==
[2021-12-03 00:21] VITALS: BP 155/87; PULSE 80; RESP 18; TEMP 36.3; BMI 35.6
[2021-12-04 11:31] VITALS: BP 134/70; PULSE 86; RESP 20; TEMP 36.9; BMI 35.6
--- NOTE | 2021-12-04 12:12 | PCM.WC.PN ---
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 Patient has significant medical history including diabetes, hypertension, coronary artery disease, anemia, aortic martinez artery bypass grafting. Patient underwent previous surgical debridement of the wound with Dr. Gerber on 04/28/2021. He was previously progressing well with the wound healing center under comprehensive management and even underwent serial applications of advanced wound healing product, epi fix. He is being treated for osteomyelitis and has an MRI was completed previously to confirm this diagnosis. He is under care of infectious disease specialist, Dr. Arrieta. He has been reducing weight on this in a surgical shoe. 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 He has not been using his knee roller while not at work. He is not able to take short-term disability. He denies fever, chill, nausea, vomiting. He kept his epi fix in place last week. Progress of Wound: Improving Objective Data Objective Data Vital Signs: Vital Signs Temp Pulse Resp BP 98.5 F 86 20 H 134/70 H 12/04/21 11:31 12/04/21 11:31 12/04/21 11:31 12/04/21 11:31 Weight: 122.47 kg Body Mass Index (BMI) 35.6 Physical Exam Narrative Skin Wound Narrative: ulcer noted to left lateral foot down to the level of bone with no longer exposure of bone. The base is granular. No malodor, purulence, fluctuation, crepitus. There is no erythema and no longer visualized bone. Skin is atrophic and hairless. reduced ulcer size noted. Edema noted to the left lower extremity VASC Pulses are palpable 2 out of 4. Capillary refill time is less than 2 seconds to digits MSK Muscle strength 5 out of 5 for all pedal groups NEURO Minor decrease in epicritic sensation noted. Patient also noted to be hypersensitive Debridement Note Debridement Note Wound debrided: lateral left foot Wound Grade/Stage: 3 Type of Debridement: Excisional debridement Anesthesia Used: 4% Lidocaine Solution Depth: in the subcutaneous layer Percentage of wound debrided: 100 Instrument Used: #15 blade Tissue Removed: fibrous, devitalized subcutaneous, biofilm, slough Severity: Fat Layer Exposed Amount of bleeding with debridement: Mild Bleeding Controlled with: Pressure Patient tolerated procedure: Patient tolerated procedure well Post-Debridement Measurements and Additional Note: Post-Debridement Measurements/Treatment MARISSA - Nurse 1 - General Ulcer Assessment Start: 12/04/21 11:31 Freq: Status: Active Protocol: MARILYN Activity Type Activity Date Activity User E-Sign Co-Sign Detail Recorded Client Recorded Date Recorded By Document 12/04/21 11:31 DL [id number] 12/04/21 11:35 DL 12/04/21 11:31 WC - Today's Visit Information Type of service Follow-up Visit (Physician/[employer] ) Arrival Mode Ambulatory Transfer Assistance None Patient Identification Verified (Name & Yes ) Patient Requires Transmission-Based No Precautions Height and Weight Body Mass Index (BMI) 35.6 BMI Classification Obese Vital Signs Temperature (97.8 F-99.1 F) 98.5 F Temperature Source Temporal Pulse Rate (60-100) 86 Pulse Location Monitor Respiratory Rate (12-18) 20 H Respiratory rate source Observation Blood Pressure (90/60-120/80) 134/70 H Blood Pressure Mean (mm Hg) 91 Source Monitor History Since Last Visit- (Skip if this is Patient's initial visit) Have you changed medications since your No last visit? Any new allergies or adverse reactions No Had a fall/change in ADL's that may No increase risk of falls Signs or symptoms of abuse and/or No neglect since last visit Have you been in the hospital since your No last visit? Has dressing in place as prescribed Yes Has compression in place as prescribed N/A Has offloadiing in place as prescribed Yes Experienced any changes in pain level or No management Left Footwear Regular Shoe Right Footwear Regular Shoe Pain Scale: 0-10 Numeric Is Patient Pain Free? No - Nurse 1 - General Ulcer Measurement Start: 12/04/21 11:31 Freq: Status: Active Protocol: Activity Type Activity Date Activity User E-Sign Co-Sign Detail Recorded Client Recorded Date Recorded By Document 12/04/21 11:31 DL [id number] 12/04/21 11:35 DL 12/04/21 11:31 Wound Center Nurse 1 #1 Left Lat Foot Post Op -Current Size (cm) - Length 0.4 -Current Size (cm) - Width 0.4 -Current Size (cm) - Depth 0.6 -Total Square Cm 0.16 -Photo Taken No -Exudate Amt Small -Exudate Type Serosanguineous -Wound Margin Indistinct, Non -Visible -Granulation Amt Large (67-100%) -Granulation Quality Pale -Necrosis Amt Small (1-33%) -Necrotic Tissue Type Adherent Slough -Structure Exposed N/A -Texture (Anna-wound Skin Appearance) Scarring -Moisture (Anna-wound Skin Appearance) Dry/Scaly -Color (Anna-wound Skin Appearance) No Abnormality -Temperature (Anna-wound Skin No Abnormality Appearance) (Pt Warm) -Tenderness on Palpation (Anna-wound No Skin Appearance) -Ulcer Cleansing Soap and Water -Foul Odor after Cleansing No -Anesthetic Used 4% Lidocaine Solution WC - Nurse 2 - General Ulcer CM Notes Start: 12/04/21 11:31 Freq: Status: Active Protocol: Activity Type Activity Date Activity User E-Sign Co-Sign Detail Recorded Client Recorded Date Recorded By Document 12/04/21 12:00 [id number] 12/04/21 12:03 GABBI 12/04/21 12:00 Wound Center Nurse 2 -Time 12:01 -Correct Patient Yes -Correct Side, Site, Position Yes -Correct Procedure Yes -Procedure Performed Yes -Type of Procedure Debridement -Clinical Debridement Subcutaneous -Tissue Removed Subcutaneous -Post Debridement (cm) - Length 0.4 -Post Debridement (cm) - Width 0.2 -Post Debridement (cm) - Depth 0.2 -Total Square (Post) (cm) 0.08 -Area of Debridement (cm) - Length 0.4 -Area of Debridement (cm) - Width 0.2 -Total Square (Area) (cm) 0.08 -Tunneling No -Undermining/Tunneling No -Circular Undermining No -Wound/Ulcer Outcome Not Healed -Ulcer Cleansing Rinsed/ Irrigated with Saline -Foul Odor after Cleansing No -Bioengineered Tissue Yes -Type of Bioengineered Tissue Epifix 18mm Disc -Expiration Date 08/02/26 -Product Lot Number [id number] -Percent Used 100 -Lot number of Saline Used [id number] -Bleeding Controlled with Pressure -Offloading Yes -Type of Offloading Surgical Shoe -Treatment Response Procedure Tolerated Well -Debridement - Subq, 1st 20sq cm No -Apply Skin Sub - 1st 25 sq cm - Feet 1 -Epifix 18mm Disc 3 Pain Scale: 0-10 Numeric Is Patient Pain Free? Yes - Nurse 3 - General Ulcer D/C NN Start: 12/04/21 11:31 Freq: Status: Active Protocol: Activity Type Activity Date Activity User E-Sign Co-Sign Detail Recorded Client Recorded Date Recorded By Document 12/04/21 12:04 GABBI [id number] 12/04/21 12:05 GABBI 12/04/21 12:04 Wound Care Nurse 3 #1 Left Lat Foot Post Op -Foul Odor after Cleansing No -Primary Dressing Covered/Secured with Dry Gauze, Secured with Tape Pain Scale: 0-10 Numeric Is Patient Pain Free? Yes WC - Visit Discharge Discharge Condition Stable Ambulatory Status Ambulatory Transportation Private Auto Medication Reconcilliation completed & Yes provided to patient/care provider Clinical Summary of Care Provided Yes Notes: reapplied own tubigrip Assessment/Plan Assessment/Plan (1) Type 2 diabetes mellitus with diabetic polyneuropathy: CODE(S): E11.42 - Type 2 diabetes mellitus with diabetic polyneuropathy (2) Obesity: CODE(S): E66.9 - Obesity, unspecified (3) Left foot pain: CODE(S): M79.672 - Pain in left foot (4) Cellulitis of left foot: CODE(S): L03.116 - Cellulitis of left lower limb (5) 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 I reviewed his case via chart review and this included his diagnostic data. Debridement was performed as noted in the clinical nursing panel. Dressing recommendations: Clean, dry, and intact. Aquacel Ag was applied over the epi fix and wound veil I recommend application of advanced wound product, epi fix. He was already approved for this and now that his infection is being addressed I recommend resuming this product. There was a breech in application series due to his infection as noted. Verbal consent was obtained and this was applied according standard protocol. This was secured in place with a wound veil and Steri-Strips. 100% of the product was applied. He tolerated this well. He was advised to keep this clean, dry, and intact until next week with a secondary dressing which was also applied today. I recommend continued application because he is responding well with this and he has continued high risk. Wound is stabilizing however osteo is apparent. Updated cultures were obtained last week with Proteus and strep. He was on Augmentin and levofloxacin. Bone was debrided and this was sent to both microbiology and pathology with acute osteo. ID on consult. To follow up as scheduled. There is no local infection or further work up seen or recommended today. He had x-ray and lab ordered. Reviewed previously with progressive osseous changes to the remaining fifth metatarsal. It is noted his prior physician ordered an MRI and that was completed earlier today. This was reviewed after clinic with osteomyelitis apparent to the remaining fifth metatarsal and proximal phalanx base which are adjacent to the deep ulcer site. Labs reviewed with white blood cell count 9.8, ESR 37, C-reactive protein 24.9. Patient reports having hemoglobin A1c about 2 to 3 months ago of 9.2%. Patient is noted to have offloaded surgical shoe and wheelchair or crutches for offloading. Offloading Plastizote liners with pocket cut out was fabricated today. Compliance encouraged. I advised him to use 2 crutches a walker or knee roller to completely keep pressure off of this ulcer. Routinely grazing the foot on the ground with the use of one crutch is probably not adequate. 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 Patient is also noted to have vascular studies done on 04/29/2021 demonstrating triphasic waveforms to PT and DP bilaterally with mild degree of large vessel disease despite noncompressible vessels. Right TBI was 0.78 and left TBI was 0.47 possibly consistent with small vessel disease. Vascular surgery referral was previously provided. Discussed importance of smoking cessation, blood sugar control, weight management, offloading, proper nutrition, infection control and hygiene to optimize healing potential. Tubigrip was applied. 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 Discussed trying to elevate as much as possible. All questions answered. Reviewed concerning signs and symptoms to watch out for and to contact office if any of these present or go to the emergency room. To follow-up with the wound healing center in 1 week. He is at significant risk of amputation and limb loss due to his uncontrolled diabetes and bone infection status. This note was generated with [employer] dictation software. It may contain incorrect words, spelling, and punctuation that were not noted in checking the note before signing. He understands he is at risk for limb loss including amputations and further systemic illness.
[2021-12-10 13:19] VITALS: BP 162/94; PULSE 82; RESP 16; TEMP 35.4; BMI 35.6
--- NOTE | 2021-12-10 14:32 | PCM.WC.PN ---
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 Patient has significant medical history including diabetes, hypertension, coronary artery disease, anemia, aortic martinez artery bypass grafting. Patient underwent previous surgical debridement of the wound with Dr. Gerber on 04/28/2021. He was previously progressing well with the wound healing center under comprehensive management and even underwent serial applications of advanced wound healing product, epi fix. He is being treated for osteomyelitis and has an MRI was completed previously to confirm this diagnosis. He is under care of infectious disease specialist, Dr. Arrieta. He has been reducing weight on this in a surgical shoe. 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 He has not been using his knee roller while not at work. He is not able to take short-term disability. He denies fever, chill, nausea, vomiting. He kept his epi fix in place last week. Progress of Wound: Improving Objective Data Objective Data Vital Signs: Vital Signs Temp Pulse Resp BP 95.8 F L 82 16 162/94 H 12/10/21 13:19 12/10/21 13:19 12/10/21 13:19 12/10/21 13:19 Oxygen Delivery Method Room Air Weight: 122.47 kg Body Mass Index (BMI) 35.6 Physical Exam Narrative Skin Wound Narrative: ulcer noted to left lateral foot no longer exposure of bone. The base is granular. No malodor, purulence, fluctuation, crepitus. There is no erythema and no longer visualized bone. Skin is atrophic and hairless. reduced ulcer size noted. Edema noted to the left lower extremity VASC Pulses are palpable 2 out of 4. Capillary refill time is less than 2 seconds to digits MSK Muscle strength 5 out of 5 for all pedal groups NEURO Minor decrease in epicritic sensation noted. Patient also noted to be hypersensitive Debridement Note Debridement Note Wound debrided: lateral plantar left forefoot Wound Grade/Stage: 3 Type of Debridement: Excisional debridement Anesthesia Used: 4% Lidocaine Solution Depth: in the subcutaneous layer Percentage of wound debrided: 100 Instrument Used: #15 blade Tissue Removed: fibrous, devitalized subcutaneous, biofilm, slough Severity: Fat Layer Exposed Amount of bleeding with debridement: Mild Bleeding Controlled with: Pressure Patient tolerated procedure: Patient tolerated procedure well Post-Debridement Measurements and Additional Note: Post-Debridement Measurements/Treatment - Nurse 1 - General Ulcer Assessment Start: 12/04/21 11:31 Freq: Status: Active Protocol: MARILYN Activity Type Activity Date Activity User E-Sign Co-Sign Detail Recorded Client Recorded Date Recorded By Document 12/04/21 11:31 DL [id number] 12/04/21 11:35 DL Document 12/10/21 13:19 BM [id number] 12/10/21 13:27 BMF 12/04/21 12/10/21 11:31 13:19 WC - Today's Visit Information Type of service Follow-up Visit Follow-up Visit (Physician/STRANNER (Physician/STRANNER ) ) Arrival Mode Ambulatory Ambulatory Transfer Assistance None None Patient Identification Verified (Name & Yes Yes ) Patient Requires Transmission-Based No No Precautions Height and Weight Body Mass Index (BMI) 35.6 35.6 BMI Classification Obese Obese Vital Signs Temperature (97.8 F-99.1 F) 98.5 F 95.8 F L Temperature Source Temporal Temporal Pulse Rate (60-100) 86 82 Pulse Location Monitor Monitor Respiratory Rate (12-18) 20 H 16 Respiratory rate source Observation Observation Oxygen Delivery Method Room Air Blood Pressure (90/60-120/80) 134/70 H 162/94 H Blood Pressure Mean (mm Hg) 91 116 Source Monitor Monitor Position Sitting Blood Pressure Location Left Arm Comment COUNSELED ON BP History Since Last Visit- (Skip if this is Patient's initial visit) Have you changed medications since your No No last visit? Any new allergies or adverse reactions No No Had a fall/change in ADL's that may No No increase risk of falls Signs or symptoms of abuse and/or No No neglect since last visit Have you been in the hospital since your No No last visit? Has dressing in place as prescribed Yes Yes Has compression in place as prescribed N/A Yes Has offloadiing in place as prescribed Yes Yes Experienced any changes in pain level or No No management Left Footwear Regular Shoe Surgical Shoe with pressure relief insole Right Footwear Regular Shoe Regular Shoe Pain Scale: 0-10 Numeric Is Patient Pain Free? No Yes - Nurse 1 - General Ulcer Measurement Start: 12/04/21 11:31 Freq: Status: Active Protocol: Activity Type Activity Date Activity User E-Sign Co-Sign Detail Recorded Client Recorded Date Recorded By Document 12/04/21 11:31 DL [id number] 12/04/21 11:35 DL Document 12/10/21 13:19 [facility] [id number] 12/10/21 13:27 BM 12/04/21 12/10/21 11:31 13:19 Wound Center Nurse 1 #1 Left Lat Foot Post Op -Combined with other wound No -Current Size (cm) - Length 0.4 0.5 -Current Size (cm) - Width 0.4 0.4 -Current Size (cm) - Depth 0.6 0.5 -Total Square Cm 0.16 0.20 -Photo Taken No No -Epithelialization None Present -Tunneling No -Undermining/Tunneling Yes -Undermining/Tunneling Starts (O'clock 3 ) -Undermining/Tunneling Ends (O'clock) 11 -Maximum Distance (cm) 0.5 -Circular Undermining No -Exudate Amt Small Medium -Exudate Type Serosanguineous Serosanguineous -Wound Margin Indistinct, Non Distinct, -Visible Outline Attached -Granulation Amt Large (67-100%) Medium (34-66%) -Granulation Quality Pale Red -Slough/Fibrin Yes -Necrosis Amt Small (1-33%) Medium (34-66%) -Necrotic Tissue Type Adherent Slough Adherent Slough -Structure Exposed N/A -Texture (Anna-wound Skin Appearance) Scarring Assessed, Localized Edema ,Scarring -Moisture (Anna-wound Skin Appearance) Dry/Scaly Assessed,Dry/ Scaly -Color (Anna-wound Skin Appearance) No Abnormality Assessed, Erythema -Temperature (Anna-wound Skin No Abnormality No Abnormality Appearance) (Pt Warm) (Pt Warm) -Tenderness on Palpation (Anna-wound No No Skin Appearance) -Ulcer Cleansing Soap and Water Soap and Water -Foul Odor after Cleansing No No -Anesthetic Used 4% Lidocaine 4% Lidocaine Solution Solution Lower Limb Edema Present Yes Left Calf (cm) 46.8 Left Ankle (cm) 26.6 WC - Nurse 2 - General Ulcer CM Notes Start: 12/04/21 11:31 Freq: Status: Active Protocol: Activity Type Activity Date Activity User E-Sign Co-Sign Detail Recorded Client Recorded Date Recorded By Document 12/04/21 12:00 [id number] 12/04/21 12:03 Document 12/10/21 14:04 [id number] 12/10/21 14:07 12/04/21 12/10/21 12:00 14:04 Wound Center Nurse 2 #1 Left Lat Foot Post Op -Time 12:01 14:04 -Correct Patient Yes Yes -Correct Side, Site, Position Yes Yes -Correct Procedure Yes Yes -Procedure Performed Yes Yes -Type of Procedure Debridement Debridement -Clinical Debridement Subcutaneous Subcutaneous -Tissue Removed Subcutaneous Subcutaneous -Post Debridement (cm) - Length 0.4 0.7 -Post Debridement (cm) - Width 0.2 1.0 -Post Debridement (cm) - Depth 0.2 0.2 -Total Square (Post) (cm) 0.08 0.70 -Area of Debridement (cm) - Length 0.4 0.7 -Area of Debridement (cm) - Width 0.2 1.0 -Total Square (Area) (cm) 0.08 0.70 -Tunneling No No -Undermining/Tunneling No No -Circular Undermining No No -Wound/Ulcer Outcome Not Healed Not Healed -Ulcer Cleansing Rinsed/ Rinsed/ Irrigated with Irrigated with Saline Saline -Foul Odor after Cleansing No No -Bioengineered Tissue Yes No -Type of Bioengineered Tissue Epifix 18mm Disc -Expiration Date 08/02/26 -Product Lot Number [id number] -Percent Used 100 -Lot number of Saline Used [id number] -Bleeding Controlled with Pressure Pressure -Offloading Yes Yes -Type of Offloading Surgical Shoe Knee Walker -Treatment Response Procedure Procedure Tolerated Well Tolerated Well -Debridement - Subq, 1st 20sq cm No Yes -Apply Skin Sub - 1st 25 sq cm - Feet 1 -Epifix 18mm Disc 3 Pain Scale: 0-10 Numeric Is Patient Pain Free? Yes Yes - Nurse 3 - General Ulcer D/C NN Start: 12/04/21 11:31 Freq: Status: Active Protocol: Activity Type Activity Date Activity User E-Sign Co-Sign Detail Recorded Client Recorded Date Recorded By Document 12/04/21 12:04 [id number] 12/04/21 12:05 JF Document 12/10/21 14:26 DL [id number] 12/10/21 14:26 DL 12/04/21 12/10/21 12:04 14:26 Wound Care Nurse 3 #1 Left Lat Foot Post Op -Ulcer Cleansing Rinsed/ Irrigated with Saline -Foul Odor after Cleansing No No -Primary Dressing Applied Promogran Alexia Matter -Primary Dressing Covered/Secured with Dry Gauze, Dry Gauze & Secured with Roll Gauze, Tape Secured with Tape -Promogran Alexia Matter 2 Treatment Response Procedure Tolerated Well Pain Scale: 0-10 Numeric Is Patient Pain Free? Yes Yes WC - Visit Discharge Discharge Condition Stable Stable Ambulatory Status Ambulatory Ambulatory Transportation Private Auto Private Auto Medication Reconcilliation completed & Yes provided to patient/care provider Clinical Summary of Care Provided Yes Notes: reapplied own tubigrip Assessment/Plan Assessment/Plan (1) Type 2 diabetes mellitus with diabetic polyneuropathy: CODE(S): E11.42 - Type 2 diabetes mellitus with diabetic polyneuropathy (2) Obesity: CODE(S): E66.9 - Obesity, unspecified (3) Left foot pain: CODE(S): M79.672 - Pain in left foot (4) Cellulitis of left foot: CODE(S): L03.116 - Cellulitis of left lower limb (5) 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 I reviewed his case via chart review and this included his diagnostic data. Debridement was performed as noted in the clinical nursing panel. Dressing recommendations: Change Alexia daily Wash: Antibacterial soap and water. To avoid soaking He completed a full course of advanced wound product epi fix. Wound is stabilizing however osteo was previously diagnosed. Updated cultures were obtained last week with Proteus and strep. He was on Augmentin and levofloxacin. Bone was debrided and this was sent to both microbiology and pathology with acute osteo. ID on consult. To follow up as scheduled. There is no local infection or further work up seen or recommended today. He had x-ray and lab ordered. Reviewed previously with progressive osseous changes to the remaining fifth metatarsal. It is noted his prior physician ordered an MRI and that was completed earlier today. This was reviewed after clinic with osteomyelitis apparent to the remaining fifth metatarsal and proximal phalanx base which are adjacent to the deep ulcer site. Labs reviewed with white blood cell count 9.8, ESR 37, C-reactive protein 24.9. Patient reports having hemoglobin A1c about 2 to 3 months ago of 9.2%. Patient is noted to have offloaded surgical shoe and wheelchair or crutches for offloading. Offloading Plastizote liners with pocket cut out was fabricated today. Compliance encouraged. I advised him to use 2 crutches a walker or knee roller to completely keep pressure off of this ulcer. Routinely grazing the foot on the ground with the use of one crutch is probably not adequate. 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 It is noted he is cleaning a basement that flooded and may be potentially moving and was advised to get help if there is somebody available. Patient is also noted to have vascular studies done on 04/29/2021 demonstrating triphasic waveforms to PT and DP bilaterally with mild degree of large vessel disease despite noncompressible vessels. Right TBI was 0.78 and left TBI was 0.47 possibly consistent with small vessel disease. Vascular surgery referral was previously provided. Discussed importance of smoking cessation, blood sugar control, weight management, offloading, proper nutrition, infection control and hygiene to optimize healing potential. Tubigrip was applied. 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 Discussed trying to elevate as much as possible. All questions answered. Reviewed concerning signs and symptoms to watch out for and to contact office if any of these present or go to the emergency room. To follow-up with the wound healing center in 1 week. He is at significant risk of amputation and limb loss due to his uncontrolled diabetes and bone infection status. This note was generated with [employer] software. It may contain incorrect words, spelling, and punctuation that were not noted in checking the note before signing. He understands he is at risk for limb loss including amputations and further systemic illness.
[2021-12-18 11:47] VITALS: BP 146/83; PULSE 78; RESP 20; TEMP 36.8; BMI 35.6
--- NOTE | 2021-12-18 16:14 | PCM.WC.PN ---
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 Patient has significant medical history including diabetes, hypertension, coronary artery disease, anemia, aortic martinez artery bypass grafting. Patient underwent previous surgical debridement of the wound with Dr. Gerber on 04/28/2021. He was previously progressing well with the wound healing center under comprehensive management and even underwent serial applications of advanced wound healing product, epi fix. He is being treated for osteomyelitis and has an MRI was completed previously to confirm this diagnosis. He is under care of infectious disease specialist, Dr. Arrieta. He has been reducing weight on this in a surgical shoe. 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 He has not been using his knee roller while not at work. He is not able to take short-term disability. He denies fever, chill, nausea, vomiting. He kept his epi fix in place last week as advised. He would like to further discuss delayed primary closure options today. Progress of Wound: Improving Objective Data Objective Data Vital Signs: Vital Signs Temp Pulse Resp BP 98.3 F 78 20 H 146/83 H 12/18/21 11:47 12/18/21 11:47 12/18/21 11:47 12/18/21 11:47 Oxygen Delivery Method Room Air Weight: 122.47 kg Body Mass Index (BMI) 35.6 Physical Exam Narrative Skin Wound Narrative: ulcer noted to left lateral foot no longer exposure of bone. The base is granular. No malodor, purulence, fluctuation, crepitus. There is no erythema and no longer visualized bone. Skin is atrophic and hairless. reduced ulcer size noted. Edema noted to the left lower extremity VASC Pulses are palpable 2 out of 4. Capillary refill time is less than 2 seconds to digits MSK Muscle strength 5 out of 5 for all pedal groups NEURO Minor decrease in epicritic sensation noted. Patient also noted to be hypersensitive Debridement Note Debridement Note Wound debrided: lateral left foot Wound Grade/Stage: 3 Type of Debridement: Excisional debridement Anesthesia Used: 4% Lidocaine Solution Depth: in the subcutaneous layer Percentage of wound debrided: 100 Instrument Used: #15 blade Tissue Removed: fibrous, devitalized subcutaneous, biofilm, slough Severity: Fat Layer Exposed Amount of bleeding with debridement: Mild Bleeding Controlled with: Pressure Patient tolerated procedure: Patient tolerated procedure well Post-Debridement Measurements and Additional Note: Post-Debridement Measurements/Treatment WC - Nurse 1 - General Ulcer Assessment Start: 12/04/21 11:31 Freq: Status: Active Protocol: WC.LOWEXT Activity Type Activity Date Activity User E-Sign Co-Sign Detail Recorded Client Recorded Date Recorded By Document 12/04/21 11:31 DL [id number] 12/04/21 11:35 DL Document 12/10/21 13:19 BMF [id number] 12/10/21 13:27 BMF Document 12/18/21 11:47 DL [id number] 12/18/21 11:50 DL 12/04/21 12/10/21 12/18/21 11:31 13:19 11:47 - Today's Visit Information Type of service Follow-up Visit Follow-up Visit Follow-up Visit (Physician/BRILLIANDEER LOOPER (Physician/BRILLIANDEER LOOPER (Physician/BRILLIANDEER LOOPER ) ) ) Arrival Mode Ambulatory Ambulatory Ambulatory Transfer Assistance None None None Patient Identification Verified (Name & Yes Yes Yes ) Patient Requires Transmission-Based No No No Precautions Height and Weight Body Mass Index (BMI) 35.6 35.6 35.6 BMI Classification Obese Obese Obese Vital Signs Temperature (97.8 F-99.1 F) 98.5 F 95.8 F L 98.3 F Temperature Source Temporal Temporal Temporal Pulse Rate (60-100) 86 82 78 Pulse Location Monitor Monitor Monitor Respiratory Rate (12-18) 20 H 16 20 H Respiratory rate source Observation Observation Observation Oxygen Delivery Method Room Air Blood Pressure (90/60-120/80) 134/70 H 162/94 H 146/83 H Blood Pressure Mean (mm Hg) 91 116 104 Source Monitor Monitor Monitor Position Sitting Blood Pressure Location Left Arm Comment COUNSELED ON BP History Since Last Visit- (Skip if this is Patient's initial visit) Have you changed medications since your No No No last visit? Any new allergies or adverse reactions No No No Had a fall/change in ADL's that may No No No increase risk of falls Signs or symptoms of abuse and/or No No No neglect since last visit Have you been in the hospital since your No No No last visit? Has dressing in place as prescribed Yes Yes Yes Has compression in place as prescribed N/A Yes Yes Has offloadiing in place as prescribed Yes Yes No Experienced any changes in pain level or No No No management Left Footwear Regular Shoe Surgical Shoe Surgical Shoe with pressure with pressure relief insole relief insole Right Footwear Regular Shoe Regular Shoe Pain Scale: 0-10 Numeric Is Patient Pain Free? No Yes Yes WC - Nurse 1 - General Ulcer Measurement Start: 12/04/21 11:31 Freq: Status: Active Protocol: Activity Type Activity Date Activity User E-Sign Co-Sign Detail Recorded Client Recorded Date Recorded By Document 12/04/21 11:31 DL [id number] 12/04/21 11:35 DL Document 12/10/21 13:19 BMF [id number] 12/10/21 13:27 BMF Document 12/18/21 11:47 DL [id number] 12/18/21 11:50 DL 12/04/21 12/10/21 12/18/21 11:31 13:19 11:47 Wound Center Nurse 1 #1 Left Lat Foot Post Op -Combined with other wound No -Current Size (cm) - Length 0.4 0.5 0.5 -Current Size (cm) - Width 0.4 0.4 0.5 -Current Size (cm) - Depth 0.6 0.5 0.2 -Total Square Cm 0.16 0.20 0.25 -Photo Taken No No No -Epithelialization None Present -Tunneling No -Undermining/Tunneling Yes -Undermining/Tunneling Starts (O'clock 3 ) -Undermining/Tunneling Ends (O'clock) 11 -Maximum Distance (cm) 0.5 -Maximum Distance #2 (cm) 0.3 -Circular Undermining No Yes -Exudate Amt Small Medium Small -Exudate Type Serosanguineous Serosanguineous -Wound Margin Indistinct, Non Distinct, Thickened -Visible Outline Attached -Granulation Amt Large (67-100%) Medium (34-66%) Large (67-100%) -Granulation Quality Pale Red Red -Slough/Fibrin Yes -Necrosis Amt Small (1-33%) Medium (34-66%) Small (1-33%) -Necrotic Tissue Type Adherent Slough Adherent Slough Adherent Slough -Structure Exposed N/A N/A -Texture (Anna-wound Skin Appearance) Scarring Assessed, Callus Localized Edema ,Scarring -Moisture (Anna-wound Skin Appearance) Dry/Scaly Assessed,Dry/ Dry/Scaly Scaly -Color (Anna-wound Skin Appearance) No Abnormality Assessed, No Abnormality Erythema -Temperature (Anna-wound Skin No Abnormality No Abnormality No Abnormality Appearance) (Pt Warm) (Pt Warm) (Pt Warm) -Tenderness on Palpation (Anna-wound No No No Skin Appearance) -Ulcer Cleansing Soap and Water Soap and Water Rinsed/ Irrigated with Saline -Foul Odor after Cleansing No No No -Anesthetic Used 4% Lidocaine 4% Lidocaine 4% Lidocaine Solution Solution Solution Lower Limb Edema Present Yes Left Calf (cm) 46.8 45.5 Left Ankle (cm) 26.6 29.3 WC - Nurse 2 - General Ulcer CM Notes Start: 12/04/21 11:31 Freq: Status: Active Protocol: Activity Type Activity Date Activity User E-Sign Co-Sign Detail Recorded Client Recorded Date Recorded By Document 12/04/21 12:00 [id number] 12/04/21 12:03 Document 12/10/21 14:04 [id number] 12/10/21 14:07 Document 12/18/21 11:55 [id number] 12/18/21 11:59 12/04/21 12/10/21 12/18/21 12:00 14:04 11:55 Wound Center Nurse 2 #1 Left Lat Foot Post Op -Time 12:01 14:04 11:55 -Correct Patient Yes Yes Yes -Correct Side, Site, Position Yes Yes Yes -Correct Procedure Yes Yes Yes -Procedure Performed Yes Yes Yes -Type of Procedure Debridement Debridement Debridement -Clinical Debridement Subcutaneous Subcutaneous Subcutaneous -Tissue Removed Subcutaneous Subcutaneous Subcutaneous -Post Debridement (cm) - Length 0.4 0.7 0.5 -Post Debridement (cm) - Width 0.2 1.0 0.6 -Post Debridement (cm) - Depth 0.2 0.2 0.2 -Total Square (Post) (cm) 0.08 0.70 0.30 -Area of Debridement (cm) - Length 0.4 0.7 0.5 -Area of Debridement (cm) - Width 0.2 1.0 0.6 -Total Square (Area) (cm) 0.08 0.70 0.30 -Tunneling No No No -Undermining/Tunneling No No No -Circular Undermining No No No -Wound/Ulcer Outcome Not Healed Not Healed Not Healed -Ulcer Cleansing Rinsed/ Rinsed/ Rinsed/ Irrigated with Irrigated with Irrigated with Saline Saline Saline -Foul Odor after Cleansing No No No -Bioengineered Tissue Yes No No -Type of Bioengineered Tissue Epifix 18mm Disc -Expiration Date 08/02/26 -Product Lot Number [id number] -Percent Used 100 -Lot number of Saline Used [id number] -Bleeding Controlled with Pressure Pressure Pressure -Offloading Yes Yes Yes -Type of Offloading Surgical Shoe Knee Walker Surgical Shoe -Treatment Response Procedure Procedure Procedure Tolerated Well Tolerated Well Tolerated Well -Debridement - Subq, 1st 20sq cm No Yes Yes -Apply Skin Sub - 1st 25 sq cm - Feet 1 -Epifix 18mm Disc 3 Pain Scale: 0-10 Numeric Is Patient Pain Free? Yes Yes Yes - Nurse 3 - General Ulcer D/C NN Start: 12/04/21 11:31 Freq: Status: Active Protocol: Activity Type Activity Date Activity User E-Sign Co-Sign Detail Recorded Client Recorded Date Recorded By Document 12/04/21 12:04 [id number] 12/04/21 12:05 Document 12/10/21 14:26 [id number] 12/10/21 14:26 Document 12/18/21 12:31 [id number] 12/18/21 12:32 DL 12/04/21 12/10/21 12/18/21 12:04 14:26 12:31 Wound Care Nurse 3 #1 Left Lat Foot Post Op -Ulcer Cleansing Rinsed/ Rinsed/ Irrigated with Irrigated with Saline Saline -Foul Odor after Cleansing No No No -Primary Dressing Applied Promogran Promogran Alexia Matter Alexia Matter -Primary Dressing Covered/Secured with Dry Gauze, Dry Gauze & Dry Gauze, Secured with Roll Gauze, Secured with Tape Secured with Tape Tape -Other Covering Tubigrip -Promogran Alexia Matter 2 1 Treatment Response Procedure Tolerated Well Pain Scale: 0-10 Numeric Is Patient Pain Free? Yes Yes Yes WC - Visit Discharge Discharge Condition Stable Stable Stable Ambulatory Status Ambulatory Ambulatory Ambulatory Transportation Private Auto Private Auto Private Auto Medication Reconcilliation completed & Yes provided to patient/care provider Clinical Summary of Care Provided Yes Notes: reapplied own tubigrip Assessment/Plan Assessment/Plan (1) Type 2 diabetes mellitus with diabetic polyneuropathy: CODE(S): E11.42 - Type 2 diabetes mellitus with diabetic polyneuropathy (2) Obesity: CODE(S): E66.9 - Obesity, unspecified (3) Left foot pain: CODE(S): M79.672 - Pain in left foot (4) Cellulitis of left foot: CODE(S): L03.116 - Cellulitis of left lower limb (5) 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 I reviewed his case via chart review and this included his diagnostic data. Debridement was performed as noted in the clinical nursing panel. Dressing recommendations: Change Alexia daily Wash: Antibacterial soap and water. To avoid soaking He completed a full course of advanced wound product epi fix. To change daily with Aquacel Ag. We discussed at length today other surgical options and procedures. Full ulcer excision with delayed primary closure will be standard when he returns to clinic next week. He understands the indications, benefits risks and anticipated healing time management. He also understands the most important thing after this procedure is to keep weight and pressure off of the site. Is ideal if he can take at least a week off of work and he will look into this. Wound is stabilizing however osteo was previously diagnosed. Updated cultures were obtained last week with Proteus and strep. He was on Augmentin and levofloxacin. Bone was debrided and this was sent to both microbiology and pathology with acute osteo. ID on consult. To follow up as scheduled. There is no local infection or further work up seen or recommended today. He had x-ray and lab ordered. Reviewed previously with progressive osseous changes to the remaining fifth metatarsal. It is noted his prior physician ordered an MRI and that was completed earlier today. This was reviewed after clinic with osteomyelitis apparent to the remaining fifth metatarsal and proximal phalanx base which are adjacent to the deep ulcer site. Labs reviewed with white blood cell count 9.8, ESR 37, C-reactive protein 24.9. Patient reports having hemoglobin A1c about 2 to 3 months ago of 9.2%. Patient is noted to have offloaded surgical shoe and wheelchair or crutches for offloading. Offloading Plastizote liners with pocket cut out was fabricated today. Compliance encouraged. I advised him to use 2 crutches a walker or knee roller to completely keep pressure off of this ulcer. Routinely grazing the foot on the ground with the use of one crutch is probably not adequate. 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 It is noted he is cleaning a basement that flooded and may be potentially moving and was advised to get help if there is somebody available. Patient is also noted to have vascular studies done on 04/29/2021 demonstrating triphasic waveforms to PT and DP bilaterally with mild degree of large vessel disease despite noncompressible vessels. Right TBI was 0.78 and left TBI was 0.47 possibly consistent with small vessel disease. Vascular surgery referral was previously provided. Discussed importance of smoking cessation, blood sugar control, weight management, offloading, proper nutrition, infection control and hygiene to optimize healing potential. Tubigrip was applied. 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 Discussed trying to elevate as much as possible. All questions answered. Reviewed concerning signs and symptoms to watch out for and to contact office if any of these present or go to the emergency room. To follow-up with the wound healing center in 1 week. He is at significant risk of amputation and limb loss due to his uncontrolled diabetes and bone infection status. This note was generated with [employer] dictation software. It may contain incorrect words, spelling, and punctuation that were not noted in checking the note before signing. He understands he is at risk for limb loss including amputations and further systemic illness. The medical decision making level is moderate. There is noted moderate risk of morbidity after considering this treatment plan and diagnostic data. Considerations were given to prescription management, decisions regarding surgical options, or social determinants of health. The problems addressed require a moderate decision making level which includes one or more chronic illnesses (w/ exacerbation, progression, or side effects), two or more stable chronic illnesses, one undiagnosed new problem w/ uncertain prognosis, one acute illness with systemic symptoms, or one acute complicated injury.
[2021-12-25 10:00] VITALS: BP 145/78; PULSE 86; RESP 18; TEMP 36.5; BMI 35.6
--- NOTE | 2021-12-25 11:18 | PN.PCM_ITS ---
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 Patient has significant medical history including diabetes, hypertension, coronary artery disease, anemia, aortic martinez artery bypass grafting. Patient underwent previous surgical debridement of the wound with Dr. Gerber on 04/28/2021. He was previously progressing well with the wound healing center under comprehensive management and even underwent serial applications of advanced wound healing product, epi fix. He denies fever, chill, nausea, vomiting. He kept his epi fix in place l ast week as advised. He would like to proceed forward with delayed primary closure option today, and further took the rest of the week off. He is with his today. Progress of Wound: Stable Objective Data Objective Data Vital Signs: Vital Signs Temp Pulse Resp BP 97.7 F L 86 18 145/78 H 12/25/21 10:00 12/25/21 10:00 12/25/21 10:00 12/25/21 10:00 Oxygen Delivery Method Room Air Weight: 122.47 kg Body Mass Index (BMI) 35.6 Physical Exam Narrative Skin Wound Narrative: ulcer noted to left lateral foot no longer exposure of bone. The base is granular. No malodor, purulence, fluctuation, crepitus. There is no erythema and no longer visualized bone. Skin is atrophic and hairless. reduced ulcer size noted. Edema noted to the left lower extremity VASC Pulses are palpable 2 out of 4. Capillary refill time is less than 2 seconds to digits MSK Muscle strength 5 out of 5 for all pedal groups NEURO Minor decrease in epicritic sensation noted. Patient also noted to be hypersensitive Debridement Note Debridement Note Wound debrided: Left lateral forefoot Wound Grade/Stage: 3 Type of Debridement: Excisional debridement Anesthesia Used: 4% Lidocaine Solution Depth: in the subcutaneous layer Percentage of wound debrided: 100 Instrument Used: #15 blade Tissue Removed: fibrous, devitalized subcutaneous, biofilm, slough Severity: Fat Layer Exposed Amount of bleeding with debridement: Mild Bleeding Controlled with: Pressure Patient tolerated procedure: Patient tolerated procedure well Post-Debridement Measurements and Additional Note: Post-Debridement Measurements/Treatment WC - Nurse 1 - General Ulcer Assessment Start: 12/04/21 11:31 Freq: Status: Active Protocol: WC.LOWEXT Activity Type Activity Date Activity User E-Sign Co-Sign Detail Recorded Client Recorded Date Recorded By Document 12/04/21 11:31 DL [id number] 12/04/21 11:35 DL Document 12/10/21 13:19 BMF [id number] 12/10/21 13:27 BMF Document 12/18/21 11:47 DL [id number] 12/18/21 11:50 DL Document 12/25/21 10:00 RB [id number] 12/25/21 10:03 RB 12/04/21 12/10/21 12/18/21 11:31 13:19 11:47 WC - Today's Visit Information Type of service Follow-up Visit Follow-up Visit Follow-up Visit (Physician/CAKE INSPECTOR (Physician/CAKE INSPECTOR (Physician/CAKE INSPECTOR ) ) ) Arrival Mode Ambulatory Ambulatory Ambulatory Transfer Assistance None None None Patient Identification Verified (Name & Yes Yes Yes ) Patient Requires Transmission-Based No No No Precautions Height and Weight Body Mass Index (BMI) 35.6 35.6 35.6 BMI Classification Obese Obese Obese Vital Signs Temperature (97.8 F-99.1 F) 98.5 F 95.8 F L 98.3 F Temperature Source Temporal Temporal Temporal Pulse Rate (60-100) 86 82 78 Pulse Location Monitor Monitor Monitor Respiratory Rate (12-18) 20 H 16 20 H Respiratory rate source Observation Observation Observation Oxygen Delivery Method Room Air Blood Pressure (90/60-120/80) 134/70 H 162/94 H 146/83 H Blood Pressure Mean (mm Hg) 91 116 104 Source Monitor Monitor Monitor Position Sitting Blood Pressure Location Left Arm Comment COUNSELED ON BP History Since Last Visit- (Skip if this is Patient's initial visit) Have you changed medications since your No No No last visit? Any new allergies or adverse reactions No No No Had a fall/change in ADL's that may No No No increase risk of falls Signs or symptoms of abuse and/or No No No neglect since last visit Have you been in the hospital since your No No No last visit? Has dressing in place as prescribed Yes Yes Yes Has compression in place as prescribed N/A Yes Yes Has offloadiing in place as prescribed Yes Yes No Experienced any changes in pain level or No No No management Left Footwear Regular Shoe Surgical Shoe Surgical Shoe with pressure with pressure relief insole relief insole Right Footwear Regular Shoe Regular Shoe Pain Scale: 0-10 Numeric Is Patient Pain Free? No Yes Yes 12/25/21 10:00 WC - Today's Visit Information Type of service Follow-up Visit (Physician/CAKE INSPECTOR ) Arrival Mode Ambulatory Transfer Assistance Stretcher Patient Identification Verified (Name & Yes ) Patient Requires Transmission-Based No Precautions Height and Weight Body Mass Index (BMI) 35.6 BMI Classification Obese Vital Signs Temperature (97.8 F-99.1 F) 97.7 F L Temperature Source Oral Pulse Rate (60-100) 86 Pulse Location Monitor Respiratory Rate (12-18) 18 Respiratory rate source Observation Oxygen Delivery Method Blood Pressure (90/60-120/80) 145/78 H Blood Pressure Mean (mm Hg) 100 Source Monitor Position Semi-Fowlers Blood Pressure Location Left Arm Comment History Since Last Visit- (Skip if this is Patient's initial visit) Have you changed medications since your No last visit? Any new allergies or adverse reactions Had a fall/change in ADL's that may No increase risk of falls Signs or symptoms of abuse and/or No neglect since last visit Have you been in the hospital since your No last visit? Has dressing in place as prescribed Yes Has compression in place as prescribed Yes Has offloadiing in place as prescribed Yes Experienced any changes in pain level or No management Left Footwear Removable Cast Walker/Walking Boot Right Footwear Regular Shoe Pain Scale: 0-10 Numeric Is Patient Pain Free? Yes - Nurse 1 - General Ulcer Measurement Start: 12/04/21 11:31 Freq: Status: Active Protocol: Activity Type Activity Date Activity User E-Sign Co-Sign Detail Recorded Client Recorded Date Recorded By Document 12/04/21 11:31 DL [id number] 12/04/21 11:35 DL Document 12/10/21 13:19 BMF [id number] 12/10/21 13:27 BMF Document 12/18/21 11:47 DL [id number] 12/18/21 11:50 DL Document 12/25/21 10:00 RB [id number] 12/25/21 10:03 RB 12/04/21 12/10/21 12/18/21 11:31 13:19 11:47 Wound Center Nurse 1 #1 Left Lat Foot Post Op -Combined with other wound No -Current Size (cm) - Length 0.4 0.5 0.5 -Current Size (cm) - Width 0.4 0.4 0.5 -Current Size (cm) - Depth 0.6 0.5 0.2 -Total Square Cm 0.16 0.20 0.25 -Photo Taken No No No -Epithelialization None Present -Tunneling No -Undermining/Tunneling Yes -Undermining/Tunneling Starts (O'clock 3 ) -Undermining/Tunneling Ends (O'clock) 11 -Maximum Distance (cm) 0.5 -Maximum Distance #2 (cm) 0.3 -Circular Undermining No Yes -Exudate Amt Small Medium Small -Exudate Type Serosanguineous Serosanguineous -Wound Margin Indistinct, Non Distinct, Thickened -Visible Outline Attached -Granulation Amt Large (67-100%) Medium (34-66%) Large (67-100%) -Granulation Quality Pale Red Red -Slough/Fibrin Yes -Necrosis Amt Small (1-33%) Medium (34-66%) Small (1-33%) -Necrotic Tissue Type Adherent Slough Adherent Slough Adherent Slough -Structure Exposed N/A N/A -Texture (Anna-wound Skin Appearance) Scarring Assessed, Callus Localized Edema ,Scarring -Moisture (Anna-wound Skin Appearance) Dry/Scaly Assessed,Dry/ Dry/Scaly Scaly -Color (Anna-wound Skin Appearance) No Abnormality Assessed, No Abnormality Erythema -Temperature (Anna-wound Skin No Abnormality No Abnormality No Abnormality Appearance) (Pt Warm) (Pt Warm) (Pt Warm) -Tenderness on Palpation (Anna-wound No No No Skin Appearance) -Ulcer Cleansing Soap and Water Soap and Water Rinsed/ Irrigated with Saline -Foul Odor after Cleansing No No No -Anesthetic Used 4% Lidocaine 4% Lidocaine 4% Lidocaine Solution Solution Solution Lower Limb Edema Present Yes Left Calf (cm) 46.8 45.5 Left Ankle (cm) 26.6 29.3 12/25/21 10:00 Wound Center Nurse 1 #1 Left Lat Foot Post Op -Combined with other wound No -Current Size (cm) - Length 0.3 -Current Size (cm) - Width 0.3 -Current Size (cm) - Depth 0.4 -Total Square Cm 0.09 -Photo Taken -Epithelialization -Tunneling No -Undermining/Tunneling No -Undermining/Tunneling Starts (O'clock ) -Undermining/Tunneling Ends (O'clock) -Maximum Distance (cm) -Maximum Distance #2 (cm) -Circular Undermining No -Exudate Amt Medium -Exudate Type Serosanguineous -Wound Margin Thickened -Granulation Amt Medium (34-66%) -Granulation Quality [place] -Slough/Fibrin Yes -Necrosis Amt Small (1-33%) -Necrotic Tissue Type Adherent Slough -Structure Exposed N/A -Texture (Anna-wound Skin Appearance) Callus -Moisture (Anna-wound Skin Appearance) Assessed -Color (Anna-wound Skin Appearance) Assessed -Temperature (Anna-wound Skin No Abnormality Appearance) (Pt Warm) -Tenderness on Palpation (Anna-wound No Skin Appearance) -Ulcer Cleansing Wound Cleanser -Foul Odor after Cleansing No -Anesthetic Used 5% Lidocaine Gel Lower Limb Edema Present Left Calf (cm) Left Ankle (cm) WC - Nurse 2 - General Ulcer CM Notes Start: 12/04/21 11:31 Freq: Status: Active Protocol: Activity Type Activity Date Activity User E-Sign Co-Sign Detail Recorded Client Recorded Date Recorded By Document 12/04/21 12:00 [id number] 12/04/21 12:03 Document 12/10/21 14:04 [id number] 12/10/21 14:07 Document 12/18/21 11:55 [id number] 12/18/21 11:59 Document 12/25/21 09:49 [id number] 12/25/21 09:50 12/04/21 12/10/21 12/18/21 12:00 14:04 11:55 Wound Center Nurse 2 #1 Left Lat Foot Post Op -Time 12:01 14:04 11:55 -Correct Patient Yes Yes Yes -Correct Side, Site, Position Yes Yes Yes -Correct Procedure Yes Yes Yes -Procedure Performed Yes Yes Yes -Type of Procedure Debridement Debridement Debridement -Clinical Debridement Subcutaneous Subcutaneous Subcutaneous -Tissue Removed Subcutaneous Subcutaneous Subcutaneous -Post Debridement (cm) - Length 0.4 0.7 0.5 -Post Debridement (cm) - Width 0.2 1.0 0.6 -Post Debridement (cm) - Depth 0.2 0.2 0.2 -Total Square (Post) (cm) 0.08 0.70 0.30 -Area of Debridement (cm) - Length 0.4 0.7 0.5 -Area of Debridement (cm) - Width 0.2 1.0 0.6 -Total Square (Area) (cm) 0.08 0.70 0.30 -Tunneling No No No -Undermining/Tunneling No No No -Circular Undermining No No No -Wound/Ulcer Outcome Not Healed Not Healed Not Healed -Ulcer Cleansing Rinsed/ Rinsed/ Rinsed/ Irrigated with Irrigated with Irrigated with Saline Saline Saline -Foul Odor after Cleansing No No No -Bioengineered Tissue Yes No No -Type of Bioengineered Tissue Epifix 18mm Disc -Expiration Date 08/02/26 -Product Lot Number [id number] -Percent Used 100 -Lot number of Saline Used [id number] -Bleeding Controlled with Pressure Pressure Pressure -Offloading Yes Yes Yes -Type of Offloading Surgical Shoe Knee Walker Surgical Shoe -Treatment Response Procedure Procedure Procedure Tolerated Well Tolerated Well Tolerated Well -Debridement - Subq, 1st 20sq cm No Yes Yes -Apply Skin Sub - 1st 25 sq cm - Feet 1 -Epifix 18mm Disc 3 Pain Scale: 0-10 Numeric Is Patient Pain Free? Yes Yes Yes 12/25/21 09:49 Wound Center Nurse 2 #1 Left Lat Foot Post Op -Time -Correct Patient Yes -Correct Side, Site, Position Yes -Correct Procedure Yes -Procedure Performed Yes -Type of Procedure Debridement -Clinical Debridement Subcutaneous -Tissue Removed Subcutaneous -Post Debridement (cm) - Length 0.5 -Post Debridement (cm) - Width 0.5 -Post Debridement (cm) - Depth 0.2 -Total Square (Post) (cm) 0.25 -Area of Debridement (cm) - Length 0.5 -Area of Debridement (cm) - Width 0.5 -Total Square (Area) (cm) 0.25 -Tunneling No -Undermining/Tunneling No -Circular Undermining No -Wound/Ulcer Outcome Not Healed -Ulcer Cleansing Rinsed/ Irrigated with Saline -Foul Odor after Cleansing No -Bioengineered Tissue No -Type of Bioengineered Tissue -Expiration Date -Product Lot Number -Percent Used -Lot number of Saline Used -Bleeding Controlled with Pressure -Offloading Yes -Type of Offloading Camwalker -Treatment Response Procedure Tolerated Well -Debridement - Subq, 1st 20sq cm Yes -Apply Skin Sub - 1st 25 sq cm - Feet -Epifix 18mm Disc Pain Scale: 0-10 Numeric Is Patient Pain Free? Yes - Nurse 3 - General Ulcer D/C NN Start: 12/04/21 11:31 Freq: Status: Active Protocol: Activity Type Activity Date Activity User E-Sign Co-Sign Detail Recorded Client Recorded Date Recorded By Document 12/04/21 12:04 JF [id number] 12/04/21 12:05 JF Document 12/10/21 14:26 DL [id number] 12/10/21 14:26 DL Document 12/18/21 12:31 DL [id number] 12/18/21 12:32 DL Document 12/25/21 10:00 RB [id number] 12/25/21 10:03 RB 12/04/21 12/10/21 12/18/21 12:04 14:26 12:31 Wound Care Nurse 3 #1 Left Lat Foot Post Op -Ulcer Cleansing Rinsed/ Rinsed/ Irrigated with Irrigated with Saline Saline -Foul Odor after Cleansing No No No -Primary Dressing Applied Promogran Promogran Alexia Matter Alexia Matter -Other Dressing -Primary Dressing Covered/Secured with Dry Gauze, Dry Gauze & Dry Gauze, Secured with Roll Gauze, Secured with Tape Secured with Tape Tape -Other Covering Tubigrip -Promogran Alexia Matter 2 1 Left -Other Treatment Response Procedure Tolerated Well Vital Signs Temperature (97.8 F-99.1 F) Temperature Source Pulse Rate (60-100) Pulse Location Respiratory Rate (12-18) Respiratory rate source Blood Pressure (90/60-120/80) Blood Pressure Mean (mm Hg) Source Position Blood Pressure Location Pain Scale: 0-10 Numeric Is Patient Pain Free? Yes Yes Yes WC - Visit Discharge Discharge Condition Stable Stable Stable Ambulatory Status Ambulatory Ambulatory Ambulatory Transportation Private Auto Private Auto Private Auto Medication Reconcilliation completed & Yes provided to patient/care provider Clinical Summary of Care Provided Yes Notes: reapplied own tubigrip 02/23/22 10:00 Wound Care Nurse 3 #1 Left Lat Foot Post Op -Ulcer Cleansing Rinsed/ Irrigated with Saline -Foul Odor after Cleansing -Primary Dressing Applied -Other Dressing abd -Primary Dressing Covered/Secured with Dry Gauze,Dry Gauze & Roll Gauze,Secured with Tape -Other Covering -Promogran Alexia Matter Left -Other double tubigrip Treatment Response Procedure Tolerated Well Vital Signs Temperature (97.8 F-99.1 F) 97.7 F L Temperature Source Oral Pulse Rate (60-100) 86 Pulse Location Monitor Respiratory Rate (12-18) 18 Respiratory rate source Observation Blood Pressure (90/60-120/80) 145/78 H Blood Pressure Mean (mm Hg) 100 Source Monitor Position Semi-Fowlers Blood Pressure Location Left Arm Pain Scale: 0-10 Numeric Is Patient Pain Free? 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 I reviewed his case via chart review and this included his diagnostic data. excisional Debridement was performed as noted in the clinical nursing panel with additional delayed primary closure after verbal consent was obtained. The indications, benefits, risk, complications and a nticipated management were reviewed. Is imperative that he does not walk on this site to allow collection to occur. He tolerated this well. Dressing recommendations: To change with a dry gauze dressing tomorrow and then further leave clean dry and intact until follow-up next week He completed a full course of advanced wound product epi fix. Wound is stabilizing however osteo was previously diagnosed. Updated cultures were obtained last week with Proteus and strep. He was on Augmentin and levofloxacin. Bone was debrided and this was sent to both microbiology and pathology with acute osteo. ID on consult. To follow up as scheduled. There is no local infection or further work up seen or recommended today. He had x-ray and lab ordered. Reviewed previously with progressive osseous ch anges to the remaining fifth metatarsal. It is noted his prior physician ordered an MRI and that was completed earlier today. This was reviewed after clinic with osteomyelitis apparent to the remaining fifth metatarsal and proximal phalanx base which are adjacent to the deep ulcer site. Labs reviewed with white blood cell count 9.8, ESR 37, C-reactive protein 24.9. Patient reports having hemoglobin A1c about 2 to 3 months ago of 9.2%. Patient is noted to have offloaded surgical shoe and wheelchair or crutches for offloading. Offloading Plastizote liners with pocket cut out was fabricated today. Compliance encouraged. I advised him to use 2 crutches a walker or knee roller to completely keep pressure off of this ulcer. Routinely grazing the foot on the ground with the use of one crutch is probably not adequate. 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 It is noted he is cleaning a basement that flooded and may be potentially moving and was advised to get help if there is somebody available. Patient is also noted to have vascular studies done on 04/29/2021 demonstrating triphasic waveforms to PT and DP bilaterally with mild degree of large vessel disease despite noncompressible vessels. Right TBI was 0.78 and left TBI was 0.47 possibly consistent with small vessel disease. Vascular surgery referral was previously provided. Discussed importance of smoking cessation, blood sugar control, weight management, offloading, proper nutrition, infection control and hygiene to optimize healing potential. Tubigrip was applied. 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 Discussed trying to elevate as much as possible. All questions answered. Reviewed concerning signs and symptoms to watch out for and to contact office if any of these present or go to the emergency room. To follow-up with the wound healing center in 1 week. He is at significant risk of amputation and limb loss due to his uncontrolled diabetes and bone infection status. This note was generated with [employer] software. It may contain incorrect words, spelling, and punctuation that were not noted in checking the note before signing. He understands he is at risk for limb loss including amputations and further systemic illness.
== END 2021-12-30 23:59 ==
LOC: WC 09:45
PROVIDERS: PCP Physician Assistant Medical; Referring Provider Hospitalist; Visit Provider Podiatrist
DX: E11.621 Type 2 diabetes mellitus with foot ulcer (principal); L97.522 Non-pressure chronic ulcer of other part of left foot with fat layer exposed; E11.42 Type 2 diabetes mellitus with diabetic polyneuropathy; I10 Essential (primary) hypertension; I25.10 Atherosclerotic heart disease of native coronary artery without angina pectoris; L03.116 Cellulitis of left lower limb; E66.9 Obesity, unspecified; Z68.35 Body mass index [BMI] 35.0-35.9, adult; Z95.1 Presence of aortocoronary bypass graft
CPT/HCPCS: 11042; 15275; Q4186

== ENCOUNTER 2021-12-27 11:50 | Emergency (ER) | payer BC, MEDICAID, SELFPAY ==
[2021-12-27 11:50] VITALS: BP 122/69; PULSE 60; RESP 18; TEMP 36.1; O2SAT 98; BMI 36.9
[2021-12-27 13:46] VITALS: BP 120/72; PULSE 62; RESP 18; O2SAT 98
--- NOTE | 2021-12-27 14:18 | RAD_ITS ---
STUDY: X-RAY - UNILATERAL RIBS ( LEFT ) WITH CHEST REASON FOR EXAM: Male, 51 years old. Trauma TECHNIQUE - RIBS: 4 view(s) of the ribs. TECHNIQUE - CHEST: Single PA view of the chest. COMPARISON: None. FINDINGS - RIBS: Acute fractures of the lateral left seventh, eighth, and ninth ribs. FINDINGS - CHEST: Status post median sternotomy. Poor inspiration with some bibasilar atelectasis. There is no demonstrated pleural abnormality. Normal size heart. Normal mediastinum and fernando. Normal visualized pulmonary arteries. Normal visualized aortic arch and descending thoracic aorta. Normal visualized thoracic spine. Normal visualized ribs, clavicles, and shoulders. There is no demonstrated abnormality of the visualized soft tissue structures of the upper abdomen. RAD/Ribs Uni Min 3V w/PA Chest IMPRESSION: RIBS: Acute fractures of the lateral left seventh eighth and ninth ribs. CHEST: No pneumothorax or hemothorax. Electronically Signed: Jay Bonilla MD at 15:30 EST ,
--- NOTE | 2021-12-27 14:20 | RAD_ITS ---
STUDY: X-RAY - LEFT SHOULDER REASON FOR EXAM: Male, 51 years old. Injury/Pain TECHNIQUE: 4 view(s) of the shoulder. COMPARISON: None. FINDINGS: Normal glenohumeral articulation. Normal acromioclavicular joint. Normal acromion. Normal humeral head and visualized proximal humerus. The soft tissue structures are unremarkable. Normal visualized pulmonary apex. RAD/Shoulder min 2 Views IMPRESSION: Normal x-ray examination of the shoulder. Electronically Signed: Jay Bonilla MD at 14:56 EST ,
[2021-12-27] MEDS: HYDROcodone Bitartrate/Apap 5/325 Tablet PO (14:26)
[2021-12-27 16:15] VITALS: BP 118/54; PULSE 65; RESP 16; O2SAT 97
--- NOTE | 2021-12-27 16:30 | EDS_ITS ---
HPI HPI - Fall History of Present Illness Chief Complaint: Fall Informant: patient Occured/Mechanism Occurred: Today Mechanism/Context: Yes slip Fall down steps #: 3 Pain/Injury Pain Location: chest and upper extremity (Left shoulder) Quality of Pain: Stabbing Worsened by: Movement, deep breathing Relieved by: Rest Associated Symptoms Associated Symptoms: Negative for Parasthesias, Weakness, Loss of function, Inability to ambulate, Loss of consciousness and Amnesia Narrative Narrative: Patient presents after a fall that occurred today. Patient states he slipped and fell down 3 steps. Patient injured the left side of his chest and left shoulder. Patient describes his pain as stabbing. Patient states it is worse with movement and with breathing. Patient denies any head injury or loss of consciousness. Patient denies any paresthesias or weakness. Patient denies any other injuries. 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 Myocardial infarct Home Medications Invokana 100 mg PO DAILY 04/28/21 [History Last Taken 04/28/21] ascorbic acid (vitamin C) [Vitamin C] 500 mg PO BID 04/28/21 [History Last Taken 04/28/21] aspirin 81 mg PO DAILY 04/28/21 [History Last Taken 04/28/21] carvedilol 25 mg PO BID 04/28/21 [History Last Taken 04/28/21] furosemide [Lasix] 40 mg PO DAILY 04/28/21 [History Last Taken 04/28/21] lisinopril 20 mg PO DAILY 04/28/21 [History Last Taken 04/28/21] metformin 1,000 mg PO BID 04/28/21 [History Last Taken 04/28/21] amoxicillin-pot clavulanate [Augmentin] 1 tab PO BID #14 tab 04/30/21 [Rx Last Taken Unknown] oxycodone-acetaminophen 1 tab PO Q6H PRN 5 Days #20 tab 04/30/21 [Rx Last Taken Unknown] amoxicillin-pot clavulanate [Augmentin] 1 tab PO BID 14 Days #28 tab 07/25/21 [Rx Last Taken Unknown] amoxicillin-pot clavulanate [Augmentin] 1 tab PO BID 14 Days #28 tab 08/20/21 [Rx Last Taken Unknown] levofloxacin 500 mg PO DAILY #14 tab 08/21/21 [Rx Last Taken Unknown] hydrocodone-acetaminophen 1 tab PO Q6H PRN PRN 3 Days #10 tablet 12/27/21 [Rx Last Taken Unknown] Allergy/AdvReac Type Severity Reaction Status Date / Time No Known Allergies Allergy Verified 04/28/21 16:09 Surgical History History of ear, nose, and throat (ENT) surgery History of quadruple bypass Social History Smoking Status: Never smoker alcohol intake: never ROS ROS ED Constitutional Constitutional ED: Denies chills or fever(s) Eyes Eyes: Denies blurry vision or change in vision ENT ENT ED: Denies rhinorrhea or sore throat Cardiovascular Cardiovascular: Reports chest pain; Denies palpitations Respiratory/Chest Respiratory/Chest: Denies cough or dyspnea Gastrointestinal Gastrointestinal: Reports nausea; Denies vomiting Genitourinary Genitourinary ED: Denies dysuria or hematuria Musculoskeletal Musculoskeletal: Denies back pain or neck pain Integumentary Denies abscess or rash Neurologic Neurologic: Denies headache(s) or weakness Allergic/Immunologic Allergic/Immunologic ED: Denies mouth swelling or urticaria EXAM Physical Exam Const Vital Signs: 12/27/21 11:50 12/27/21 13:46 12/27/21 13:48 Temperature 97.0 F L Temperature Source Temporal Pulse Rate 60 62 Respiratory Rate 18 18 Respiratory Effort Normal Non-Labored Blood Pressure 122/69 H 120/72 Blood Pressure Mean 86 88 Pulse Ox 98 98 Oxygen Delivery Method Room Air Room Air 12/27/21 16:15 Temperature Temperature Source Pulse Rate 65 Respiratory Rate 16 Respiratory Effort Blood Pressure 118/54 L Blood Pressure Mean 75 Pulse Ox 97 Oxygen Delivery Method Room Air Positive well nourished, well developed and obese General Appearance ED: well developed and NAD Nutritional Appearance: obese HEENT Reports normocephalic atraumatic Neck full ROM and supple Chest Wall Chest Narrative: There is tenderness over the left lower ribs. There is no edema or ecchymosis. There is no bony crepitance or step-off. Resp normal respiratory effort and clear to auscultation bilaterally Cardio regular rate and regular rhythm GI non-tender Palpation: soft Extremity Extremity Narrative: There is some mild tenderness over the left shoulder. There is no deformity. There is no edema or ecchymosis. Range of motion was limited in all motion secondary to pain. Radial pulses are equal bilaterally. Sensation was intact to light touch in the radial, median, ulnar, and axillary areas. Strength is 5/5 in the radial, median, and ulnar areas. Neuro oriented x3, CN's II-XII intact bilaterally, moves all extremities, no focal motor deficits and no sensory deficits noted Sensorium / Orientation: alert Psych mental status grossly normal MDM MDM MDM Narrative Medical decision making narrative: X-rays of the left ribs were obtained. There are 5 views. On my interpretation, there are fractures of the seventh eighth and ninth ribs. There is no pneumothorax or hemothorax. Radiologist also interpreted the x-rays and agrees. X-rays of the left shoulder was obtained. There are 4 views. On my interpretation, there is no acute fracture or dislocation. There is no soft tissue swelling. Radiologist also interpreted the x-rays and agrees. Patient was given a dose of [place] here. Patient was given a prescription for Cashmere. Patient was instructed to take 10-15 deep breaths every hour while awake to prevent atelectasis and pneumonia. Patient understood and was agreeable with the plan. All questions were answered. Radiography Diagnostic Testing: Clinical Impression(s) from Imaging Studies Ribs w/Chest X-Ray 12/27/21 14:18 IMPRESSION: RIBS: Acute fractures of the lateral left seventh eighth and ninth ribs. CHEST: No pneumothorax or hemothorax. Electronically Signed: Jay Bonilla MD at 15:30 EST Reading Location ID and State: [id number] / [employer] Meet[employer] Tel , Service support , Shoulder X-Ray 12/27/21 14:20 IMPRESSION: Normal x-ray examination of the shoulder. Electronically Signed: Jay Bonilla MD at 14:56 EST , Discharge Plan Triage Chief Complaint: Fall ED Provider: Johann Henry Dx/Rx/DC Orders Clinical Impression: Multiple rib fractures Instructions: ED Rib Fracture Prescriptions: New hydrocodone-acetaminophen [hydrocodone-acetaminophen] 1 TABLET tablet 1 tab PO Q6H PRN PRN (Reason: Pain) 3 Days Qty: 10 RF: 0 No Action furosemide [Lasix] 40 mg Tablet 40 mg PO DAILY RF: 0 carvedilol 25 mg Tablet 25 mg PO BID RF: 0 lisinopril 20 mg Tablet 20 mg PO DAILY RF: 0 metformin 1,000 mg Tablet 1,000 mg PO BID RF: 0 aspirin 81 mg Tablet 81 mg PO DAILY RF: 0 ascorbic acid (vitamin C) [Vitamin C] 500 mg Tablet Extended Release 500 mg PO BID RF: 0 Invokana 100 mg Tablet 100 mg PO DAILY RF: 0 amoxicillin-pot clavulanate [Augmentin] 875-125 mg tablet 1 tab PO BID Qty: 14 RF: 0 oxycodone-acetaminophen 5-325 mg tablet 1 tab PO Q6H PRN (Reason: pain) 5 Days Qty: 20 RF: 0 amoxicillin-pot clavulanate [Augmentin] 1 EACH tablet 1 tab PO BID 14 Days Qty: 28 RF: 0 amoxicillin-pot clavulanate [Augmentin] 1 EACH tablet 1 tab PO BID 14 Days Qty: 28 RF: 1 levofloxacin 500 mg tablet 500 mg PO DAILY Qty: 14 RF: 0 Primary Care Provider: Karen Giang Referrals: Karen Giang PA [Primary Care Provider] - 3-5 Days Disposition Disposition: Home, Self Care Discharge Date/Time: 12/27/21 16:52
== END 2021-12-27 16:52 | disposition home or self-care (01) ==
PROVIDERS: Emergency Provider Emergency Medicine; PCP Physician Assistant Medical; Visit Provider Emergency Medicine
DX: S22.42XA Multiple fractures of ribs, left side, initial encounter for closed fracture (principal); I25.2 Old myocardial infarction; E66.9 Obesity, unspecified; W10.9XXA Fall (on) (from) unspecified stairs and steps, initial encounter
CPT/HCPCS: 71101; 73030; 99283

== ENCOUNTER 2021-12-29 20:34 | Emergency (ER) | payer BC, MEDICAID, SELFPAY ==
[2021-12-29 20:35] VITALS: BP 174/87; PULSE 86; RESP 18; TEMP 36.6; O2SAT 87; BMI 36.9
[2021-12-29 20:53] VITALS: BP 168/90; PULSE 88; RESP 16; O2SAT 92; O2SAT 94
--- NOTE | 2021-12-29 21:26 | EKG12_ITS ---
Test Reason : DYSRHYTHMIA Blood Pressure : / mmHG Vent. Rate : 087 BPM Atrial Rate : 087 BPM P-R Int : 186 ms QRS Dur : 150 ms QT Int : 392 ms P-R-T Axes : 031 -79 040 degrees QTc Int : 471 ms Normal sinus rhythm Left axis deviation Right bundle branch block Inferior infarct , age undetermined Abnormal ECG Confirmed by EMILY ALEXANDRA, YVONNE ([id number]), senior editor MALOU CALLAHAN ([id number]) on 12/31/2021 11:12:57 AM Referred By: CHING Confirmed By:YVONNE DIAZ MD
--- NOTE | 2021-12-29 21:27 | EDS_ITS ---
HPI History of Present Illness Chief Complaint: Shortness of Breath Narrative Narrative: Patient with multiple medical problems presents with shortness of breath that has been increasing over the last few days. 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 He states on Thursday, 2 days ago, he slipped and fell on the ice. He presented to the emergency department and broke multiple ribs, #7, 8, and 9 reportedly. He is taking hydrocodone and acetaminophen without relief of his symptoms. He denies any fevers or chills, no nausea or vomiting. However, he states that he took his pulse ox at home and it was low in the 60s. He had elevated blood pressure at the time. Upon arrival to the ED his pulse ox was in the 80s. He complains of pain in his lateral left chest. He is not a smoker. He presents because of his low pulse ox and difficulty breathing with his rib fractures. 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 Myocardial infarct Home Medications Invokana 100 mg PO DAILY 04/28/21 [History Last Taken 04/28/21] ascorbic acid (vitamin C) [Vitamin C] 500 mg PO BID 04/28/21 [History Last Taken 04/28/21] aspirin 81 mg PO DAILY 04/28/21 [History Last Taken 04/28/21] carvedilol 25 mg PO BID 04/28/21 [History Last Taken 04/28/21] furosemide [Lasix] 40 mg PO DAILY 04/28/21 [History Last Taken 04/28/21] metformin 1,000 mg PO BID 04/28/21 [History Last Taken 04/28/21] hydrocodone-acetaminophen 1 tab PO Q6H PRN PRN 3 Days #10 tablet 12/27/21 [Rx Last Taken Unknown] linagliptin [Tradjenta] 5 mg PO DAILY 12/29/21 [History Last Taken Unknown] rosuvastatin 20 mg PO QHS 12/29/21 [History Last Taken Unknown] sacubitril-valsartan [Entresto] 1 tab PO BID 12/29/21 [History Last Taken Unknown] Allergy/AdvReac Type Severity Reaction Status Date / Time No Known Allergies Allergy Verified 04/28/21 16:09 Surgical History History of ear, nose, and throat (ENT) surgery History of quadruple bypass Social History Smoking Status: Never smoker alcohol intake: never ROS ROS ED ROS Narrative Constitutional: No fever, no chills. HEENT: No sore throat. No neck pain. No loss of vision. No rhinorrhea. Cardiovascular: Left-sided lateral chest pain where there are broken ribs. No palpitations. No pedal edema. Respiratory: No cough, positive shortness of breath. Reported low pulse ox in the 60s. Abdominal: No abdominal pain. No nausea. No vomiting. Genitourinary: No dysuria. No hematuria. Musculoskeletal: No myalgias. No arthralgias. Neurologic: No headaches. No dizziness. No lightheadedness. Skin: No rash. No change in color. Psychiatric: No depression. No anxiety. EXAM Physical Exam Narrative Exam Narrative: Afebrile. Vital signs noted. HEENT: Normocephalic. Atraumatic. PERRL, EOMI. Neck soft and supple. No point tenderness or step off. Cardiovascular: Regular rate and rhythm. No murmurs, rubs, or gallops appreciated. Mild tenderness to palpation left lateral ribs. No crepitance. Respiratory: No tachypnea. Lungs clear to auscultation bilaterally. Gastrointestinal: Abdomen soft, nontender, with normoactive bowel sounds. No rebound or guarding. Neurological: Awake. Alert. Nonfocal, nonlateralizing. Skin: No rash. Normal color. No pallor. Musculoskeletal: No pedal edema. Full range of motion extremities. Left foot in brace with Velcro. Const Vital Signs: 12/29/21 20:35 12/29/21 20:53 12/29/21 21:55 Temperature 98 F Temperature Source Temporal Pulse Rate 86 88 85 Respiratory Rate 18 16 16 Respiratory Effort Short of Breath Respiratory Depth Shallow Respiratory Pattern Irregular Blood Pressure 174/87 H 168/90 H 145/80 H Blood Pressure Mean 116 116 101 Pulse Ox 87 92 98 Oxygen Delivery Method Room Air Nasal Cannula Room Air Oxygen Flow Rate (L/min) 4 Fraction of Inspired Oxygen (FIO2) 100 12/29/21 22:02 12/29/21 23:18 Temperature Temperature Source Pulse Rate 85 77 Respiratory Rate 28 H 21 H Respiratory Effort Respiratory Depth Respiratory Pattern Blood Pressure 140/80 H 152/86 H Blood Pressure Mean 100 108 Pulse Ox 93 95 Oxygen Delivery Method Nasal Cannula Room Air Oxygen Flow Rate (L/min) 4 Fraction of Inspired Oxygen (FIO2) 100 MDM MDM MDM Narrative Medical decision making narrative: Patient has hypoxia secondary to his broken ribs. I will obtain a chest x-ray to make sure he does not have a pneumothorax. I will obtain basic laboratory work along with an EKG because of his increasing shortness of breath. CBC shows slightly elevated white count of 12.8. Hemoglobin stable 11.1. Platelet count normal at 293. Potassium is elevated 5.7, his EKG does show a mildly elevated peak T waves with a right bundle branch block and normal sinus rhythm at 87. He was administered calcium gluconate, insulin, and glucose/D 25. He does have an acute kidney injury with a creatinine of 2.37 and a BUN of 62. Troponin negative at 17. BNP slightly elevated at 128. His chest x-ray shows streaky opacities in bilateral lung bases and may represent atelectasis versus infection. He has a small left pleural effusion. I do not feel that he was necessarily using his incentive spirometer. Given his hypoxia, initially I discussed the patient with the hospitalist for admission, who is uncomfortable admitting the patient here and would like him transferred to trauma services. I discussed patient with the [facility] transfer line. He has been accepted as an ED to ED transfer for chest scanning and further trauma evaluation and probable admission. I spoke with the emergency physician, Dr. Adria Specner who is accepted him in transfer. He will be transferred in stable condition. Lab Data Attestation: I reviewed the patient's lab results. Labs: Laboratory Results - last 24 hr 12/29/21 12/29/21 12/29/21 21:42 21:42 21:42 WBC 12.8 H RBC 3.67 L Hgb 11.1 L Hct 32.9 L MCV 89.6 MCH 30.2 MCHC 33.7 RDW Std Deviation 41.9 RDW Coeff of Shant 12.8 Plt Count 293 MPV 9.8 Immature Gran % (Auto) 0.500 Neut % (Auto) 79.8 H Lymph % (Auto) 9.9 L [place] % (Auto) 8.1 Eos % (Auto) 1.5 Baso % (Auto) 0.2 Absolute Neuts (auto) 10.2 H Absolute Lymphs (auto) 1.27 Nucleated RBC % 0 Sodium 136 Potassium 5.7 H Chloride 109 H Carbon Dioxide 23.0 Anion Gap 4 L BUN 62 H Creatinine 2.37 H Estim Creat Clear Calc 41.67 Est GFR (MDRD) Af Amer 37 L Est GFR (MDRD) Non-Af 31 L BUN/Creatinine Ratio 26.2 H Glucose 170 H Calcium 9.4 Troponin I High Sens 17 B-Natriuretic Peptide 128.6 H Radiography Diagnostic Testing: Clinical Impression(s) from Imaging Studies Chest X-Ray 12/29/21 21:40 IMPRESSION: Streaky opacities in bilateral lung bases may represent atelectasis versus infection. Small left pleural effusion. Electronically Signed: Dev Rosales MD at 23:25 EST , Discharge Plan Triage Chief Complaint: Shortness of Breath ED Provider: Mejia Robbins Dx/Rx/DC Orders Clinical Impression: Multiple rib fractures, Acute kidney injury, Hypoxia, Pleural effusion, Acute hyperkalemia, Dehydration Prescriptions: No Action furosemide [Lasix] 40 mg Tablet 40 mg PO DAILY RF: 0 carvedilol 25 mg Tablet 25 mg PO BID RF: 0 metformin 1,000 mg Tablet 1,000 mg PO BID RF: 0 aspirin 81 mg Tablet 81 mg PO DAILY RF: 0 ascorbic acid (vitamin C) [Vitamin C] 500 mg Tablet Extended Release 500 mg PO BID RF: 0 Invokana 100 mg Tablet 100 mg PO DAILY RF: 0 hydrocodone-acetaminophen [hydrocodone-acetaminophen] 1 TABLET tablet 1 tab PO Q6H PRN PRN (Reason: Pain) 3 Days Qty: 10 RF: 0 rosuvastatin 20 mg tablet 20 mg PO QHS RF: 0 Tradjenta 5 mg tablet 5 mg PO DAILY RF: 0 Entresto 49-51 mg tablet 1 tab PO BID RF: 0 Primary Care Provider: Karen Giang Referrals: Karen Giang, TRA [Primary Care Provider] - Disposition Disposition: Acute Care Hospital Discharge Location: [facility]
--- NOTE | 2021-12-29 21:40 | RAD_ITS ---
INDICATION: shortness of breath, hypoxia EXAMINATION/TECHNIQUE: X-RAY - XR Chest 1 View COMPARISON: None. FINDINGS: Streaky opacities in the bilateral lung bases. Sternal cerclage wires and vascular clips are present from a prior sternotomy and coronary artery bypass graft procedure (CABG). The heart is mildly enlarged Small left pleural effusion. No pneumothorax. No acute osseous abnormalities. RAD/Chest 1 View (Portable) IMPRESSION: Streaky opacities in bilateral lung bases may represent atelectasis versus infection. Small left pleural effusion. Electronically Signed: Dev Rosales MD at 23:25 EST ,
[2021-12-29] MEDS: Morphine 4 MG/ML Syringe IV (21:51)
[2021-12-29 21:53] LABS: Absolute Lymphocyte Count 1.27 X10^3/uL (0.83-4.51); Absolute Neutrophil Count 10.2 X10^3/uL (2.0-7.7); Basophil# 0.02 X10^3/uL; Basophil% 0.2 % (0-1); Eosinophil# 0.19 X10^3/uL; Eosinophils% 1.5 % (0-5); Hematocrit 32.9 % (40-54); Hemoglobin 11.1 g/dL (13.0-16.5); Lymphocyte # 1.27 X10^3/ul (0.83-4.51); Lymphocyte % 9.9 % (19-41); Mean Corp Hgb Conc 33.7 g/dL (32-36); Mean Corpuscular Hgb 30.2 pg (27.0-32.0); Mean Corpuscular Volume 89.6 fL (80-94); Mean Platelet Vol. 9.8 fl (6.2-12.0); Monocyte# 1.04 X10^3/uL; Monocyte% 8.1 % (0-10); NRBC Flagged by Analyzer 0 % (0-5); Neutrophil # 10.24 X10^3/uL (2.7-7.7); Neutrophil % 79.8 % (47-70); Platelet Count 293 K/mm3 (150-450); RBC Distribution Width CV 12.8 % (11.6-14.6); RBC Distribution Width SD 41.9 fl (35.1-43.9); Red Blood Count 3.67 M/mm3 (4.6-6.2); White Blood Count 12.8 K/mm3 (4.4-11.0)
[2021-12-29 21:55] VITALS: BP 145/80; PULSE 85; RESP 16; O2SAT 98
[2021-12-29 22:02] VITALS: BP 140/80; PULSE 85; RESP 28; O2SAT 93
[2021-12-29 22:11] LABS: Anion Gap 4 (5-15); BUN 62 mg/dL (7-18); BUN/Creat Ratio 26.2 RATIO (10-20); Calcium,Total 9.4 mg/dL (8.5-10.1); Chloride 109 mmol/L (98-107); Creatinine, Serum 2.37 mg/dL (0.70-1.30); EST Glomerular Filtration Rate 31 mL/min (>60); Est Glom Filt Rate - Afr Amer 37 mL/min (>60); Estimated Creatinine Clearance 41.67 ml/min; Glucose 170 mg/dL (74-106); Potassium 5.7 mmol/L (3.5-5.1); Sodium Level 136 mmol/L (136-145); Troponin-I HS 17 pg/mL (3.0-78.0)
[2021-12-29 22:23] LABS: BNP,B-Type NATRIURETIC PEPTIDE 128.6 pg/mL (0-100)
[2021-12-29 23:18] VITALS: BP 152/86; PULSE 77; RESP 21; O2SAT 95
--- NOTE | 2021-12-29 23:50 | EKG12_ITS ---
Test Reason : DYSRHYTHMIA Blood Pressure : / mmHG Vent. Rate : 079 BPM Atrial Rate : 079 BPM P-R Int : 190 ms QRS Dur : 162 ms QT Int : 404 ms P-R-T Axes : 033 -77 030 degrees QTc Int : 463 ms Normal sinus rhythm Left axis deviation Right bundle branch block Inferior infarct , age undetermined Abnormal ECG When compared with ECG of 29-DEC-2021 21:36, MANUAL COMPARISON REQUIRED, DATA IS UNCONFIRMED Confirmed by AKOSUA ALEXANDRA, IVÁN ([id number]), make up editor MALOU CALLAHAN ([id number]) on 01/03/2022 1:50:15 PM Referred By: AROLDO Confirmed By:ZAID SOUTH MD
[2021-12-30] MEDS: Dextrose 10%-Water 250 ML 999 ML IV (00:36)
[2021-12-30] MEDS: Calcium Gluconate IV 3 GM in Syringe 1 EACH IV (00:36)
[2021-12-30] MEDS: Insulin Lispro 10 UNIT in Syringe 0 ML 6 UNIT IV (00:36)
[2021-12-30 00:37] VITALS: BP 174/89; PULSE 84; RESP 24; O2SAT 94
== END 2021-12-30 01:01 | disposition short-term general hospital (02) ==
PROVIDERS: Emergency Provider Emergency Medicine; PCP Physician Assistant Medical; Visit Provider Emergency Medicine
DX: S22.42XA Multiple fractures of ribs, left side, initial encounter for closed fracture (principal); N17.9 Acute kidney failure, unspecified; E11.9 Type 2 diabetes mellitus without complications; R09.02 Hypoxemia; J90 Pleural effusion, not elsewhere classified; E87.5 Hyperkalemia; E86.0 Dehydration; I25.2 Old myocardial infarction; Z79.84 Long term (current) use of oral hypoglycemic drugs; Z79.82 Long term (current) use of aspirin; Z79.899 Other long term (current) drug therapy; W00.9XXA Unspecified fall due to ice and snow, initial encounter
CPT/HCPCS: 71045; 80048; 83880; 84484; 85025; 93005; 96365; 96375; 99285; A4216; J0610

== ENCOUNTER 2022-01-29 11:00 | Outpatient (RCR) | payer BC, MEDICAID, SELFPAY ==
[2021-12-31 00:22] VITALS: BP 145/78; PULSE 86; RESP 18; TEMP 36.5; BMI 35.6
[2022-01-08 11:22] VITALS: BP 114/72; PULSE 85; RESP 16; TEMP 36.3; BMI 35.6
--- NOTE | 2022-01-08 13:08 | PN.PCM_ITS ---
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 Patient has significant medical history including diabetes, hypertension, coronary artery disease, anemia, aortic martinez artery bypass grafting. Patient underwent previous surgical debridement of the wound with Dr. Gerber on 04/28/2021. He was previously progressing well with the wound healing center under comprehensive management and even underwent serial applications of advanced wound healing product, epi fix. Two weeks ago, he underwent ulcer excision with delayed primary closure. He denies infection or problems with this procedure site. He missed his appointment last week due to pain. It is noted he fell and broke several ribs and partial lung. He does not think his foot is infected. He has kept a dry dressing in place as advised. He is with his today. Progress of Wound: Stable. Sutures intact Objective Data Objective Data Vital Signs: Vital Signs Temp Pulse Resp BP 97.4 F L 85 16 114/72 01/08/22 11:22 01/08/22 11:22 01/08/22 11:22 01/08/22 11:22 Weight: 122.47 kg Body Mass Index (BMI) 35.6 Physical Exam Narrative Skin Wound Narrative: Excised ulcer site is intact with sutures with well approximated edges. No necrosis, purulence, erythema streaking or odor Edema noted to the left lower extremity VASC Pulses are palpable 2 out of 4. Capillary refill time is less than 2 seconds to digits MSK Muscle strength 5 out of 5 for all pedal groups NEURO Minor decrease in epicritic sensation noted. 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 ) Arrival Mode Ambulatory Accompanied by Patient Identification Verified (Name & Yes ) Height and Weight Body Mass Index (BMI) 35.6 BMI Classification Obese Vital Signs Temperature (97.8 F-99.1 F) 97.4 F L Temperature Source Temporal Pulse Rate (60-100) 85 Pulse Location Monitor Respiratory Rate (12-18) 16 Respiratory rate source Observation Blood Pressure (90/60-120/80) 114/72 Blood Pressure Mean (mm Hg) 86 Source Monitor Position Sitting Blood Pressure Location Right Arm History Since Last Visit- (Skip if this is Patient's initial visit) Have you changed medications since your No last visit? Any new allergies or adverse reactions No Had a fall/change in ADL's that may Yes increase risk of falls Signs or symptoms of abuse and/or No neglect since last visit Have you been in the hospital since your Yes last visit? Has dressing in place as prescribed Yes Has compression in place as prescribed N/A Has offloadiing in place as prescribed Yes Left Footwear Surgical Shoe with pressure relief insole Right Footwear Regular Shoe Pain Scale: 0-10 Numeric Is Patient Pain Free? Yes - Nurse 1 - General Ulcer Measurement Start: 01/08/22 11:22 Freq: Status: Active Protocol: Activity Type Activity Date Activity User E-Sign Co-Sign Detail Recorded Client Recorded Date Recorded By Document 01/08/22 11:22 GABBI [id number] 01/08/22 11:25 GABBI 01/08/22 11:22 Wound Center Nurse 1 #1 Left Lat Foot Post Op -Combined with other wound No -Current Size (cm) - Length 0.1 -Current Size (cm) - Width 0.1 -Current Size (cm) - Depth 0.1 -Total Square Cm 0.01 -Photo Taken No -Epithelialization Large 67-100% -Tunneling No -Undermining/Tunneling No -Circular Undermining No -Exudate Amt None Present -Wound Margin Indistinct, Non -Visible -Granulation Amt None Present (0 %) -Slough/Fibrin No -Structure Exposed N/A -Texture (Anna-wound Skin Appearance) Assessed -Moisture (Anna-wound Skin Appearance) Assessed,Dry/ Scaly -Color (Anna-wound Skin Appearance) Assessed -Temperature (Anna-wound Skin No Abnormality Appearance) (Pt Warm) -Tenderness on Palpation (Anna-wound No Skin Appearance) -Ulcer Cleansing Rinsed/ Irrigated with Saline -Foul Odor after Cleansing No Lower Limb Edema Present NA WC - Nurse 3 - General Ulcer D/C NN Start: 01/08/22 11:22 Freq: Status: Active Protocol: Activity Type Activity Date Activity User E-Sign Co-Sign Detail Recorded Client Recorded Date Recorded By Document 01/08/22 11:33 DL [id number] 01/08/22 11:33 DL 01/08/22 11:33 Wound Care Nurse 3 #1 Left Lat Foot Post Op -Ulcer Cleansing Not Cleansed -Foul Odor after Cleansing No -Primary Dressing Covered/Secured with Dry Gauze, Secured with Tape Treatment Response Procedure Tolerated Well Pain Scale: 0-10 Numeric Is Patient Pain Free? 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 I reviewed his case via chart review and this included his diagnostic data. Debridement was not performed. His delayed primary closure site was kept intact with sutures in place. Suture removal will be considered likely within the next 1 to 2 weeks. It is imperative that he does not walk on this site to allow collection to occur. Dressing recommendations: To change with a dry gauze dressing tomorrow and then further leave clean dry and intact until follow-up next week He completed a full course of advanced wound product epi fix. Wound is stabilizing however osteo was previously diagnosed. Updated cultures were obtained last week with Proteus and strep. He was on Augmentin and levofloxacin. Bone was debrided and this was sent to both microbiology and pathology with acute osteo. ID on consult. To follow up as scheduled. There is no local infection or further work up seen or recommended today. He had x-ray and lab ordered. Reviewed previously with progressive osseous changes to the remaining fifth metatarsal. It is noted his prior physician ordered an MRI and that was completed earlier today. This was reviewed after clinic with osteomyelitis apparent to the remaining fifth metatarsal and proximal phalanx base which are adjacent to the deep ulcer site. Labs reviewed with white blood cell count 9.8, ESR 37, C-reactive protein 24.9. Patient reports having hemoglobin A1c about 2 to 3 months ago of 9.2%. Patient is noted to have offloaded surgical shoe and wheelchair or crutches for offloading. Offloading Plastizote liners with pocket cut out was fabricated today. Compliance encouraged. I advised him to use 2 crutches a walker or knee roller to completely keep pressure off of this ulcer. Routinely grazing the foot on the ground with the use of one crutch is probably not adequate. Patient is also noted to have vascular studies done on 04/29/2021 demonstrating triphasic waveforms to PT and DP bilaterally with mild degree of large vessel disease despite noncompressible vessels. Right TBI was 0.78 and left TBI was 0.47 possibly consistent with small vessel disease. Vascular surgery referral was previously provided. Discussed importance of smoking cessation, blood sugar control, weight management, offloading, proper nutrition, infection control and hygiene to optimize healing potential. Tubigrip was applied. 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 Discussed trying to elevate as much as possible. All questions answered. Reviewed concerning signs and symptoms to watch out for and to contact office if any of these present or go to the emergency room. To follow-up with the wound healing center in 1 week. He is at significant risk of amputation and limb loss due to his uncontrolled diabetes and bone infection status. His recent other injuries are noted. He is off work at this time. This note was generated with [employer] dictation software. It may contain incorrect words, spelling, and punctuation that were not noted in checking the note before signing. He understands he is at risk for limb loss including amputations and further systemic illness. The medical decision making level is low. There is noted low risk of morbidity after considering this treatment plan and diagnostic data. The problems addressed require a low medical decision making level which includes two or more minor problems, a stable chronic illness, or an acute uncomplicated illness or injury.
[2022-01-15 10:52] VITALS: BP 147/79; PULSE 91; BMI 35.6
--- NOTE | 2022-01-15 13:12 | PCM.WC.PN ---
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 Patient has significant medical history including diabetes, hypertension, coronary artery disease, anemia, aortic martinez artery bypass grafting. Patient underwent previous surgical debridement of the wound with Dr. Gerber on 04/28/2021. He was previously progressing well with the wound healing center under comprehensive management and even underwent serial applications of advanced wound healing product, epi fix. Three weeks ago, he underwent ulcer excision with delayed primary closure. He denies infection or problems with this procedure site. It is noted he fell a couple of weeks ago and broke several ribs and partial lung was injured. He had to take time off work. He does not think his foot is infected. He has kept a dry dressing in place as advised. He is with his today. He relates he tries not to walk on his ulcer. He only walks on his foot when he gets up to go to the bathroom, to prepare meals, to go to the barn 1 time this weekend due to a fall in horse, and to go to a work meeting yesterday. Progress of Wound: Stable. Sutures intact. Upon removal of the ulcer still open Objective Data Objective Data Vital Signs: Vital Signs Temp Pulse Resp BP 97.4 F L 91 16 147/79 H 01/08/22 11:22 01/15/22 10:52 01/08/22 11:22 01/15/22 10:52 Oxygen Delivery Method Room Air Weight: 122.47 kg Body Mass Index (BMI) 35.6 Physical Exam Narrative Skin Wound Narrative: Excised ulcer site is intact with sutures with well approximated edges. No necrosis, purulence, erythema streaking or odor. Upon suture removal there is fibrous base with no direct probe to bone Edema noted to the left lower extremity VASC Pulses are palpable 2 out of 4. Capillary refill time is less than 2 seconds to digits MSK Muscle strength 5 out of 5 for all pedal groups NEURO Minor decrease in epicritic sensation noted. Patient also noted to be hypersensitive Const alert and oriented x3 Debridement Note Debridement Note Wound debrided: Plantar lateral foot Wound Grade/Stage: 3 Type of Debridement: Excisional debridement Anesthesia Used: 4% Lidocaine Solution Depth: in the subcutaneous layer Percentage of wound debrided: 100 Instrument Used: #15 blade Tissue Removed: fibrous, devitalized subcutaneous, biofilm, slough Severity: Fat Layer Exposed Amount of bleeding with debridement: Mild Bleeding Controlled with: Pressure Patient tolerated procedure: Patient tolerated procedure well Post-Debridement Measurements and Additional Note: Post-Debridement Measurements/Treatment - Nurse 1 - General Ulcer Assessment Start: 01/08/22 11:22 Freq: Status: Active Protocol: MARILYN Activity Type Activity Date Activity User E-Sign Co-Sign Detail Recorded Client Recorded Date Recorded By Document 01/08/22 11:22 [id number] 01/08/22 11:25 Document 01/15/22 10:52 IN [id number] 01/15/22 11:01 IN 01/08/22 01/15/22 11:22 10:52 - Today's Visit Information Type of service Follow-up Visit 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-up 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 ) ) Arrival Mode Ambulatory Ambulatory Accompanied by Patient Identification Verified (Name & Yes Yes ) Height and Weight Body Mass Index (BMI) 35.6 35.6 BMI Classification Obese Obese Vital Signs Temperature (97.8 F-99.1 F) 97.4 F L Temperature Source Temporal Temporal Pulse Rate (60-100) 85 91 Pulse Location Monitor Monitor Respiratory Rate (12-18) 16 Respiratory rate source Observation Observation Oxygen Delivery Method Room Air Blood Pressure (90/60-120/80) 114/72 147/79 H Blood Pressure Mean (mm Hg) 86 101 Source Monitor Monitor Position Sitting Sitting Blood Pressure Location Right Arm Left Arm History Since Last Visit- (Skip if this is Patient's initial visit) Have you changed medications since your No last visit? Any new allergies or adverse reactions No Had a fall/change in ADL's that may Yes increase risk of falls Signs or symptoms of abuse and/or No neglect since last visit Have you been in the hospital since your Yes last visit? Has dressing in place as prescribed Yes Yes Has compression in place as prescribed N/A Yes Has offloadiing in place as prescribed Yes Yes Experienced any changes in pain level or Yes management Left Footwear Surgical Shoe Diabetic Shoe with pressure relief insole Right Footwear Regular Shoe Regular Shoe Pain Scale: 0-10 Numeric Is Patient Pain Free? Yes Yes - Nurse 1 - General Ulcer Measurement Start: 01/08/22 11:22 Freq: Status: Active Protocol: Activity Type Activity Date Activity User E-Sign Co-Sign Detail Recorded Client Recorded Date Recorded By Document 01/08/22 11:22 [id number] 01/08/22 11:25 Document 01/15/22 10:52 IN [id number] 01/15/22 11:01 IN 01/08/22 01/15/22 11:22 10:52 Wound Center Nurse 1 #1 Left Lat Foot Post Op -Combined with other wound No -Current Size (cm) - Length 0.1 0.1 -Current Size (cm) - Width 0.1 0.1 -Current Size (cm) - Depth 0.1 0.1 -Total Square Cm 0.01 0.01 -Photo Taken No -Epithelialization Large 67-100% -Tunneling No -Undermining/Tunneling No -Circular Undermining No -Exudate Amt None Present None Present -Wound Margin Indistinct, Non -Visible -Granulation Amt None Present (0 %) -Slough/Fibrin No -Structure Exposed N/A -Texture (Anna-wound Skin Appearance) Assessed -Moisture (Anna-wound Skin Appearance) Assessed,Dry/ Assessed Scaly -Color (Anna-wound Skin Appearance) Assessed Assessed -Temperature (Anna-wound Skin No Abnormality No Abnormality Appearance) (Pt Warm) (Pt Warm) -Tenderness on Palpation (Anna-wound No No Skin Appearance) -Ulcer Cleansing Rinsed/ Soap and Water Irrigated with Saline -Foul Odor after Cleansing No No -Anesthetic Used 4% Lidocaine Solution -Wound Comment(s) stitches intact Lower Limb Edema Present NA NA WC - Nurse 2 - General Ulcer CM Notes Start: 01/08/22 11:22 Freq: Status: Active Protocol: Activity Type Activity Date Activity User E-Sign Co-Sign Detail Recorded Client Recorded Date Recorded By Document 01/15/22 11:04 [id number] 01/15/22 11:08 01/15/22 11:04 Wound Center Nurse 2 #1 Left Lat Foot Post Op -Time 11:06 -Correct Patient Yes -Correct Side, Site, Position Yes -Correct Procedure Yes -Procedure Performed Yes -Type of Procedure Debridement -Clinical Debridement Subcutaneous -Tissue Removed Subcutaneous -Post Debridement (cm) - Length 0.5 -Post Debridement (cm) - Width 0.5 -Post Debridement (cm) - Depth 0.3 -Total Square (Post) (cm) 0.25 -Area of Debridement (cm) - Length 0.5 -Area of Debridement (cm) - Width 0.5 -Total Square (Area) (cm) 0.25 -Tunneling No -Undermining/Tunneling No -Circular Undermining No -Wound/Ulcer Outcome Not Healed -Ulcer Cleansing Rinsed/ Irrigated with Saline -Foul Odor after Cleansing No -Bioengineered Tissue No -Bleeding Controlled with Pressure -Offloading Yes -Type of Offloading Surgical Shoe -Treatment Response Procedure Tolerated Well -Debridement - Subq, 1st 20sq cm Yes Pain Scale: 0-10 Numeric Is Patient Pain Free? Yes - Nurse 3 - General Ulcer D/C NN Start: 01/08/22 11:22 Freq: Status: Active Protocol: Activity Type Activity Date Activity User E-Sign Co-Sign Detail Recorded Client Recorded Date Recorded By Document 01/08/22 11:33 [id number] 01/08/22 11:33 Document 01/15/22 11:15 IN [id number] 01/15/22 11:35 IN 01/08/22 01/15/22 11:33 11:15 Wound Care Nurse 3 #1 Left Lat Foot Post Op -Ulcer Cleansing Not Cleansed -Foul Odor after Cleansing No -Primary Dressing Applied Aquacel AG 2x2 -Primary Dressing Covered/Secured with Dry Gauze, Dry Gauze, Secured with Secured with Tape Tape -Aquacel AG 2x2 1 Treatment Response Procedure Tolerated Well Pain Scale: 0-10 Numeric Is Patient Pain Free? 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 I reviewed his case via chart review and this included his diagnostic data. Debridement was performed as noted in the clinical panel. His delayed primary closure site was kept intact with sutures in place. Suture removal was performed as noted with reduction in ulcer depth however the ulcer remains present without local signs of infection. Dressing recommendations: To change daily with Aquacel Ag and secondary gauze dressing He completed a full course of advanced wound product epi fix. Wound is stabilizing however osteo was previously diagnosed. Updated cultures were obtained last week with Proteus and strep. He was on Augmentin and levofloxacin. Bone was previously debrided and this was sent to both microbiology and pathology with acute osteo. ID on consult. To follow up as scheduled. There is no local infection or further work up seen or recommended today. He had x-ray and lab ordered. Reviewed previously with progressive osseous changes to the remaining fifth metatarsal. It is noted his prior physician ordered an MRI and that was completed earlier today. This was reviewed after clinic with osteomyelitis apparent to the remaining fifth metatarsal and proximal phalanx base which are adjacent to the deep ulcer site. Labs reviewed with white blood cell count 9.8, ESR 37, C-reactive protein 24.9. Patient reports having hemoglobin A1c about 2 to 3 months ago of 9.2%. Patient is noted to have offloaded surgical shoe and wheelchair or crutches for offloading. Offloading Plastizote liners with pocket cut out was fabricated today. Compliance encouraged. I advised him to use 2 crutches a walker or knee roller to completely keep pressure off of this ulcer. Routinely grazing the foot on the ground with the use of one crutch is probably not adequate. Patient is also noted to have vascular studies done on 04/29/2021 demonstrating triphasic waveforms to PT and DP bilaterally with mild degree of large vessel disease despite noncompressible vessels. Right TBI was 0.78 and left TBI was 0.47 possibly consistent with small vessel disease. Vascular surgery referral was previously provided. Discussed importance of smoking cessation, blood sugar control, weight management, offloading, proper nutrition, infection control and hygiene to optimize healing potential. Tubigrip was applied. 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 Discussed trying to elevate as much as possible. All questions answered. Reviewed concerning signs and symptoms to watch out for and to contact office if any of these present or go to the emergency room. To follow-up with the wound healing center in 1 week. He is at significant risk of amputation and limb loss due to his uncontrolled diabetes and bone infection status. His recent other injuries are noted. He is off work at this time. This note was generated with [employer] dictation software. It may contain incorrect words, spelling, and punctuation that were not noted in checking the note before signing. He understands he is at risk for limb loss including amputations and further systemic illness.
[2022-01-22 11:23] VITALS: BP 121/67; PULSE 90; RESP 18; TEMP 36.1; BMI 35.6
--- NOTE | 2022-01-22 12:02 | PCM.WC.PN ---
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 Patient has significant medical history including diabetes, hypertension, coronary artery disease, anemia, aortic martinez artery bypass grafting. Patient underwent previous surgical debridement of the wound with Dr. Gerber on 04/28/2021. He was previously progressing well with the wound healing center under comprehensive management and even underwent serial applications of advanced wound healing product, epi fix. Three weeks ago, he underwent ulcer excision with delayed primary closure. He denies infection or problems with this procedure site. It is noted he fell a couple of weeks ago and broke several ribs and partial lung was injured. He had to take time off work; he plans to return next week. He does not think his foot is infected. He has kept a dry dressing in place as advised. He is with his today. Progress of Wound: Stable Objective Data Objective Data Vital Signs: Vital Signs Temp Pulse Resp BP 97 F L 90 18 121/67 H 01/22/22 11:23 01/22/22 11:23 01/22/22 11:23 01/22/22 11:23 Oxygen Delivery Method Room Air Weight: 122.47 kg Body Mass Index (BMI) 35.6 Physical Exam Narrative Skin Wound Narrative: Ulcer with subcutaneous tissue exposed and reduced overall size. No necrosis, purulence, erythema streaking or odor. no direct probe to bone. Adjacent skin is hairless and atrophic Edema noted to the left lower extremity VASC Pulses are palpable 2 out of 4. Capillary refill time is less than 2 seconds to digits MSK Muscle strength 5 out of 5 for all pedal groups NEURO Minor decrease in epicritic sensation noted. Patient also noted to be hypersensitive Debridement Note Debridement Note Wound debrided: Left foot Wound Grade/Stage: 3 Type of Debridement: Excisional debridement Anesthesia Used: 4% Lidocaine Solution Depth: in the subcutaneous layer Percentage of wound debrided: 100 Instrument Used: #15 blade Tissue Removed: fibrous, devitalized subcutaneous, biofilm, slough Severity: Fat Layer Exposed Amount of bleeding with debridement: Mild Bleeding Controlled with: Pressure Patient tolerated procedure: Patient tolerated procedure well Post-Debridement Measurements and Additional Note: Post-Debridement Measurements/Treatment WC - Nurse 1 - General Ulcer Assessment Start: 01/08/22 11:22 Freq: Status: Active Protocol: WC.LOWEXT Activity Type Activity Date Activity User E-Sign Co-Sign Detail Recorded Client Recorded Date Recorded By Document 01/08/22 11:22 [id number] 01/08/22 11:25 Document 01/15/22 10:52 [place] [id number] 01/15/22 11:01 MT Document 01/22/22 11:23 RB [id number] 01/22/22 11:25 RB 01/08/22 01/15/22 01/22/22 11:22 10:52 11:23 - Today's Visit Information Type of service Follow-up Visit Follow-up Visit Follow-up Visit (Physician/QUALIFICATIONS EXAMINER (Physician/QUALIFICATIONS EXAMINER (Physician/QUALIFICATIONS EXAMINER ) ) ) Arrival Mode Ambulatory Ambulatory Ambulatory Transfer Assistance None Accompanied by Patient Identification Verified (Name & Yes Yes Yes ) Patient Requires Transmission-Based No Precautions Height and Weight Body Mass Index (BMI) 35.6 35.6 35.6 BMI Classification Obese Obese Obese Vital Signs Temperature (97.8 F-99.1 F) 97.4 F L 97 F L Temperature Source Temporal Temporal Temporal Pulse Rate (60-100) 85 91 90 Pulse Location Monitor Monitor Monitor Respiratory Rate (12-18) 16 18 Respiratory rate source Observation Observation Observation Oxygen Delivery Method Room Air Blood Pressure (90/60-120/80) 114/72 147/79 H 121/67 H Blood Pressure Mean (mm Hg) 86 101 85 Source Monitor Monitor Monitor Position Sitting Sitting Semi-Fowlers Blood Pressure Location Right Arm Left Arm Left Arm History Since Last Visit- (Skip if this is Patient's initial visit) Have you changed medications since your No No last visit? Any new allergies or adverse reactions No No Had a fall/change in ADL's that may Yes No increase risk of falls Signs or symptoms of abuse and/or No No neglect since last visit Have you been in the hospital since your Yes No last visit? Has dressing in place as prescribed Yes Yes Yes Has compression in place as prescribed N/A Yes No Has offloadiing in place as prescribed Yes Yes Yes Experienced any changes in pain level or Yes No management Left Footwear Surgical Shoe Diabetic Shoe with pressure relief insole Right Footwear Regular Shoe Regular Shoe Pain Scale: 0-10 Numeric Is Patient Pain Free? Yes Yes Yes - Nurse 1 - General Ulcer Measurement Start: 01/08/22 11:22 Freq: Status: Active Protocol: Activity Type Activity Date Activity User E-Sign Co-Sign Detail Recorded Client Recorded Date Recorded By Document 01/08/22 11:22 [id number] 01/08/22 11:25 JF Document 01/15/22 10:52 [place] [id number] 01/15/22 11:01 MT Document 01/22/22 11:23 RB [id number] 01/22/22 11:25 RB 01/08/22 01/15/22 01/22/22 11:22 10:52 11:23 Wound Center Nurse 1 #1 Left Lat Foot Post Op -Combined with other wound No No -Current Size (cm) - Length 0.1 0.1 0.3 -Current Size (cm) - Width 0.1 0.1 0.4 -Current Size (cm) - Depth 0.1 0.1 0.7 -Total Square Cm 0.01 0.01 0.12 -Photo Taken No -Epithelialization Large 67-100% -Tunneling No No -Undermining/Tunneling No No -Circular Undermining No No -Exudate Amt None Present None Present Medium -Exudate Type Serosanguineous -Wound Margin Indistinct, Non Distinct, -Visible Outline Attached -Granulation Amt None Present (0 Large (67-100%) %) -Granulation Quality [place] -Slough/Fibrin No Yes -Necrosis Amt Small (1-33%) -Necrotic Tissue Type Adherent Slough -Structure Exposed N/A N/A -Texture (Anna-wound Skin Appearance) Assessed Callus -Moisture (Anna-wound Skin Appearance) Assessed,Dry/ Assessed Assessed Scaly -Color (Anna-wound Skin Appearance) Assessed Assessed Assessed -Temperature (Anna-wound Skin No Abnormality No Abnormality No Abnormality Appearance) (Pt Warm) (Pt Warm) (Pt Warm) -Tenderness on Palpation (Anna-wound No No No Skin Appearance) -Ulcer Cleansing Rinsed/ Soap and Water Wound Cleanser Irrigated with Saline -Foul Odor after Cleansing No No No -Anesthetic Used 4% Lidocaine 5% Lidocaine Solution Gel -Wound Comment(s) stitches intact Lower Limb Edema Present NA NA WC - Nurse 2 - General Ulcer CM Notes Start: 01/08/22 11:22 Freq: Status: Active Protocol: Activity Type Activity Date Activity User E-Sign Co-Sign Detail Recorded Client Recorded Date Recorded By Document 01/15/22 11:04 [id number] 01/15/22 11:08 JF Document 01/22/22 11:35 [id number] 01/22/22 11:38 01/15/22 01/22/22 11:04 11:35 Wound Center Nurse 2 #1 Left Lat Foot Post Op -Time 11:06 11:36 -Correct Patient Yes Yes -Correct Side, Site, Position Yes Yes -Correct Procedure Yes Yes -Procedure Performed Yes Yes -Type of Procedure Debridement Debridement -Clinical Debridement Subcutaneous Subcutaneous -Tissue Removed Subcutaneous Subcutaneous -Post Debridement (cm) - Length 0.5 0.4 -Post Debridement (cm) - Width 0.5 0.4 -Post Debridement (cm) - Depth 0.3 0.3 -Total Square (Post) (cm) 0.25 0.16 -Area of Debridement (cm) - Length 0.5 0.4 -Area of Debridement (cm) - Width 0.5 0.4 -Total Square (Area) (cm) 0.25 0.16 -Tunneling No No -Undermining/Tunneling No No -Circular Undermining No No -Wound/Ulcer Outcome Not Healed Not Healed -Ulcer Cleansing Rinsed/ Rinsed/ Irrigated with Irrigated with Saline Saline -Foul Odor after Cleansing No No -Bioengineered Tissue No No -Bleeding Controlled with Pressure Pressure -Treatment Response Procedure Procedure Tolerated Well Tolerated Well -Offloading Yes Yes -Type of Offloading Surgical Shoe Total Contact Cast (TCC) - Left ($) -Debridement - Subq, 1st 20sq cm Yes Yes Pain Scale: 0-10 Numeric Is Patient Pain Free? Yes Yes WC - Nurse 3 - General Ulcer D/C NN Start: 01/08/22 11:22 Freq: Status: Active Protocol: Activity Type Activity Date Activity User E-Sign Co-Sign Detail Recorded Client Recorded Date Recorded By Document 01/08/22 11:33 DL [id number] 01/08/22 11:33 DL Document 01/15/22 11:15 MT [id number] 01/15/22 11:35 MT Document 01/22/22 11:58 RB [id number] 01/22/22 12:00 RB 01/08/22 01/15/22 01/22/22 11:33 11:15 11:58 Wound Care Nurse 3 #1 Left Lat Foot Post Op -Ulcer Cleansing Not Cleansed -Foul Odor after Cleansing No -Primary Dressing Applied Aquacel AG 2x2 Aquacel AG 2x2, Optilok 6.5x10 -Other Dressing primary layer of TCC applied -Primary Dressing Covered/Secured with Dry Gauze, Dry Gauze, Secured with Secured with Tape Tape -Aquacel AG 2x2 1 1 -Optilok 6.5x10 1 Treatment Response Procedure Procedure Tolerated Well Tolerated Well Pain Scale: 0-10 Numeric Is Patient Pain Free? 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 I reviewed his case via chart review and this included his diagnostic data. Debridement was performed as noted in the clinical panel. His delayed primary closure site was kept intact with sutures in place. Suture removal was performed as noted with reduction in ulcer depth however the ulcer remains present without local signs of infection. Dressing recommendations: Aquacel Ag and secondary gauze dressing He completed a full course of advanced wound product epi fix. Wound is stabilizing however osteo was previously diagnosed. Updated cultures were obtained at a prior visit included Proteus and strep. He was on Augmentin and levofloxacin. Bone was previously debrided and this was sent to both microbiology and pathology with acute osteo. ID on consult. To follow up as scheduled. There is no local infection or further work up seen or recommended today. He had x-ray and lab ordered. Reviewed previously with progressive osseous changes to the remaining fifth metatarsal. It is noted his prior physician ordered an MRI and that was completed earlier today. This was reviewed after clinic with osteomyelitis apparent to the remaining fifth metatarsal and proximal phalanx base which are adjacent to the deep ulcer site. Labs reviewed with white blood cell count 9.8, ESR 37, C-reactive protein 24.9. Patient reports having hemoglobin A1c about 2 to 3 months ago of 9.2%. Patient is noted to have offloaded surgical shoe and wheelchair or crutches for offloading. Offloading Plastizote liners with pocket cut out was fabricated previously. Compliance encouraged. I advised him to use 2 crutches a walker or knee roller to completely keep pressure off of this ulcer. Routinely grazing the foot on the ground with the use of one crutch is probably not adequate. Therefore, we discussed the application of a total contact cast this week because he is off work. He is finally amendable. Verbal consent was obtained. This was applied according standard protocol with the foot in a rectus position as well as the knee. This was applied and well-padded manner and he tolerated this well. He was advised to keep this clean, dry, and intact until follow-up next week. Patient is also noted to have vascular studies done on 04/29/2021 demonstrating triphasic waveforms to PT and DP bilaterally with mild degree of large vessel disease despite noncompressible vessels. Right TBI was 0.78 and left TBI was 0.47 possibly consistent with small vessel disease. Vascular surgery referral was previously provided. Discussed importance of smoking cessation, blood sugar control, weight management, offloading, proper nutrition, infection control and hygiene to optimize healing potential. Tubigrip was applied. 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 Discussed trying to elevate as much as possible. All questions answered. Reviewed concerning signs and symptoms to watch out for and to contact office if any of these present or go to the emergency room. To follow-up with the wound healing center in 1 week. He is at significant risk of amputation and limb loss due to his uncontrolled diabetes and bone infection status. His recent other injuries are noted. He is off work at this time. This note was generated with [employer] dictation software. It may contain incorrect words, spelling, and punctuation that were not noted in checking the note before signing. He understands he is at risk for limb loss including amputations and further systemic illness.
[2022-01-29 11:07] VITALS: BP 116/70; PULSE 91; RESP 20; TEMP 36.6; BMI 35.6
--- NOTE | 2022-01-29 14:02 | PCM.WC.PN ---
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 Patient has significant medical history including diabetes, hypertension, coronary artery disease, anemia, aortic martinez artery bypass grafting. Patient underwent previous surgical debridement of the wound with Dr. Gerber on 04/28/2021. He was previously progressing well with the wound healing center under comprehensive management and even underwent serial applications of advanced wound healing product, epi fix. Three weeks ago, he underwent ulcer excision with delayed primary closure. He denies infection or problems with this procedure site. He is with his today. He had improved total contact casting however is not able to do reapplication because he must return to work or he will not be able to buy groceries. He refuses a cast today. Progress of Wound: Improving Objective Data Objective Data Vital Signs: Vital Signs Temp Pulse Resp BP 97.8 F 91 20 H 116/70 01/29/22 11:07 01/29/22 11:07 01/29/22 11:07 01/29/22 11:07 Oxygen Delivery Method Room Air Weight: 122.47 kg Body Mass Index (BMI) 35.6 Physical Exam Narrative Skin Wound Narrative: Ulcer with subcutaneous tissue exposed and reduced overall size. No necrosis, purulence, erythema streaking or odor. Decreased size noted no direct probe to bone. Adjacent skin is hairless and atrophic Edema noted to the left lower extremity VASC Pulses are palpable 2 out of 4. Capillary refill time is less than 2 seconds to digits MSK Muscle strength 5 out of 5 for all pedal groups NEURO Minor decrease in epicritic sensation noted. Patient also noted to be hypersensitive Debridement Note Debridement Note Wound debrided: Left foot Wound Grade/Stage: 3 Type of Debridement: Excisional debridement Anesthesia Used: 4% Lidocaine Solution Depth: in the subcutaneous layer Percentage of wound debrided: 100 Instrument Used: #15 blade Tissue Removed: fibrous, devitalized subcutaneous, biofilm, slough Severity: Fat Layer Exposed Amount of bleeding with debridement: Mild Bleeding Controlled with: Pressure Patient tolerated procedure: Patient tolerated procedure well Post-Debridement Measurements and Additional Note: Post-Debridement Measurements/Treatment MARISSA - Nurse 1 - General Ulcer Assessment Start: 01/08/22 11:22 Freq: Status: Active Protocol: WC.LOWEXT Activity Type Activity Date Activity User E-Sign Co-Sign Detail Recorded Client Recorded Date Recorded By Document 01/08/22 11:22 JF [id number] 01/08/22 11:25 JF Document 01/15/22 10:52 MT [id number] 01/15/22 11:01 MT Document 01/22/22 11:23 RB [id number] 01/22/22 11:25 RB Document 01/29/22 11:07 DL [id number] 01/29/22 11:10 DL 01/08/22 01/15/22 01/22/22 11:22 10:52 11:23 WC - Today's Visit Information Type of service Follow-up Visit Follow-up Visit Follow-up Visit (Physician/CERTIFIED MEDICAL TRANSCRIPTIONIST (Physician/CERTIFIED MEDICAL TRANSCRIPTIONIST (Physician/CERTIFIED MEDICAL TRANSCRIPTIONIST ) ) ) Arrival Mode Ambulatory Ambulatory Ambulatory Transfer Assistance None Accompanied by Patient Identification Verified (Name & Yes Yes Yes ) Patient Requires Transmission-Based No Precautions Finger Stick Blood Sugar(mg/dl) (if indicated): Blood Sugar Height and Weight Body Mass Index (BMI) 35.6 35.6 35.6 BMI Classification Obese Obese Obese Vital Signs Temperature (97.8 F-99.1 F) 97.4 F L 97 F L Temperature Source Temporal Temporal Temporal Pulse Rate (60-100) 85 91 90 Pulse Location Monitor Monitor Monitor Respiratory Rate (12-18) 16 18 Respiratory rate source Observation Observation Observation Oxygen Delivery Method Room Air Blood Pressure (90/60-120/80) 114/72 147/79 H 121/67 H Blood Pressure Mean (mm Hg) 86 101 85 Source Monitor Monitor Monitor Position Sitting Sitting Semi-Fowlers Blood Pressure Location Right Arm Left Arm Left Arm History Since Last Visit- (Skip if this is Patient's initial visit) Have you changed medications since your No No last visit? Any new allergies or adverse reactions No No Had a fall/change in ADL's that may Yes No increase risk of falls Signs or symptoms of abuse and/or No No neglect since last visit Have you been in the hospital since your Yes No last visit? Has dressing in place as prescribed Yes Yes Yes Has compression in place as prescribed N/A Yes No Has offloadiing in place as prescribed Yes Yes Yes Experienced any changes in pain level or Yes No management Left Footwear Surgical Shoe Diabetic Shoe with pressure relief insole Right Footwear Regular Shoe Regular Shoe Pain Scale: 0-10 Numeric Is Patient Pain Free? Yes Yes Yes 01/29/22 11:07 WC - Today's Visit Information Type of service Follow-up Visit (Physician/CERTIFIED MEDICAL TRANSCRIPTIONIST ) Arrival Mode Ambulatory Transfer Assistance None Accompanied by Patient Identification Verified (Name & Yes ) Patient Requires Transmission-Based No Precautions Finger Stick Blood Sugar(mg/dl) (if not checked indicated): Blood Sugar Stated by Patient Height and Weight Body Mass Index (BMI) 35.6 BMI Classification Obese Vital Signs Temperature (97.8 F-99.1 F) 97.8 F Temperature Source Temporal Pulse Rate (60-100) 91 Pulse Location Monitor Respiratory Rate (12-18) 20 H Respiratory rate source Observation Oxygen Delivery Method Blood Pressure (90/60-120/80) 116/70 Blood Pressure Mean (mm Hg) 85 Source Monitor Position Blood Pressure Location History Since Last Visit- (Skip if this is Patient's initial visit) Have you changed medications since your No last visit? Any new allergies or adverse reactions No Had a fall/change in ADL's that may No increase risk of falls Signs or symptoms of abuse and/or No neglect since last visit Have you been in the hospital since your No last visit? Has dressing in place as prescribed Yes Has compression in place as prescribed N/A Has offloadiing in place as prescribed Yes Experienced any changes in pain level or No management Left Footwear Total Contact Cast Right Footwear Pain Scale: 0-10 Numeric Is Patient Pain Free? Yes - Nurse 1 - General Ulcer Measurement Start: 01/08/22 11:22 Freq: Status: Active Protocol: Activity Type Activity Date Activity User E-Sign Co-Sign Detail Recorded Client Recorded Date Recorded By Document 01/08/22 11:22 JF [id number] 01/08/22 11:25 JF Document 01/15/22 10:52 MT [id number] 01/15/22 11:01 MT Document 01/22/22 11:23 RB [id number] 01/22/22 11:25 RB Document 01/29/22 11:07 DL [id number] 01/29/22 11:10 DL 01/08/22 01/15/22 01/22/22 11:22 10:52 11:23 Wound Center Nurse 1 #1 Left Lat Foot Post Op -Combined with other wound No No -Current Size (cm) - Length 0.1 0.1 0.3 -Current Size (cm) - Width 0.1 0.1 0.4 -Current Size (cm) - Depth 0.1 0.1 0.7 -Total Square Cm 0.01 0.01 0.12 -Photo Taken No -Epithelialization Large 67-100% -Tunneling No No -Undermining/Tunneling No No -Circular Undermining No No -Exudate Amt None Present None Present Medium -Exudate Type Serosanguineous -Wound Margin Indistinct, Non Distinct, -Visible Outline Attached -Granulation Amt None Present (0 Large (67-100%) %) -Granulation Quality [place] -Slough/Fibrin No Yes -Necrosis Amt Small (1-33%) -Necrotic Tissue Type Adherent Slough -Structure Exposed N/A N/A -Texture (Anna-wound Skin Appearance) Assessed Callus -Moisture (Anna-wound Skin Appearance) Assessed,Dry/ Assessed Assessed Scaly -Color (Anna-wound Skin Appearance) Assessed Assessed Assessed -Temperature (Anna-wound Skin No Abnormality No Abnormality No Abnormality Appearance) (Pt Warm) (Pt Warm) (Pt Warm) -Tenderness on Palpation (Anna-wound No No No Skin Appearance) -Ulcer Cleansing Rinsed/ Soap and Water Wound Cleanser Irrigated with Saline -Foul Odor after Cleansing No No No -Anesthetic Used 4% Lidocaine 5% Lidocaine Solution Gel -Wound Comment(s) stitches intact Lower Limb Edema Present NA NA 01/29/22 11:07 Wound Center Nurse 1 #1 Left Lat Foot Post Op -Combined with other wound -Current Size (cm) - Length 1 -Current Size (cm) - Width 1 -Current Size (cm) - Depth 0.3 -Total Square Cm 1 -Photo Taken No -Epithelialization -Tunneling -Undermining/Tunneling -Circular Undermining -Exudate Amt Medium -Exudate Type Serosanguineous -Wound Margin Distinct, Outline Attached -Granulation Amt Small (1-33%) -Granulation Quality [place] -Slough/Fibrin -Necrosis Amt Large (67-100%) -Necrotic Tissue Type Adherent Slough -Structure Exposed N/A -Texture (Anna-wound Skin Appearance) Scarring -Moisture (Anna-wound Skin Appearance) Maceration -Color (Anna-wound Skin Appearance) No Abnormality -Temperature (Anna-wound Skin No Abnormality Appearance) (Pt Warm) -Tenderness on Palpation (Anna-wound No Skin Appearance) -Ulcer Cleansing Soap and Water -Foul Odor after Cleansing No -Anesthetic Used 4% Lidocaine Solution -Wound Comment(s) Lower Limb Edema Present WC - Nurse 2 - General Ulcer CM Notes Start: 01/08/22 11:22 Freq: Status: Active Protocol: Activity Type Activity Date Activity User E-Sign Co-Sign Detail Recorded Client Recorded Date Recorded By Document 01/15/22 11:04 [id number] 01/15/22 11:08 Document 01/22/22 11:35 [id number] 01/22/22 11:38 Document 01/29/22 11:20 [id number] 01/29/22 11:21 Edit Result 01/29/22 11:20 JF (1) [id number] 01/29/22 11:24 JF (1) #1 Left Lat Foot Post Op - Post Debridement (cm) - Length 1.1 => 0.6 - Post Debridement (cm) - Width 1 => 0.5 - Post Debridement (cm) - Depth 0.3 => 0.2 - Total Square (Post) (cm) 1.1 => 0.30 - Area of Debridement (cm) - Length 1.1 => 0.6 - Area of Debridement (cm) - Width 1 => 0.5 - Total Square (Area) (cm) 1.1 => 0.30 01/15/22 01/22/22 01/29/22 11:04 11:35 11:20 Wound Center Nurse 2 #1 Left Lat Foot Post Op -Time 11:06 11:36 11:20 -Correct Patient Yes Yes Yes -Correct Side, Site, Position Yes Yes Yes -Correct Procedure Yes Yes Yes -Procedure Performed Yes Yes Yes -Type of Procedure Debridement Debridement Debridement -Clinical Debridement Subcutaneous Subcutaneous Subcutaneous -Tissue Removed Subcutaneous Subcutaneous Subcutaneous -Post Debridement (cm) - Length 0.5 0.4 0.6 -Post Debridement (cm) - Width 0.5 0.4 0.5 -Post Debridement (cm) - Depth 0.3 0.3 0.2 -Total Square (Post) (cm) 0.25 0.16 0.30 -Area of Debridement (cm) - Length 0.5 0.4 0.6 -Area of Debridement (cm) - Width 0.5 0.4 0.5 -Total Square (Area) (cm) 0.25 0.16 0.30 -Tunneling No No No -Undermining/Tunneling No No No -Circular Undermining No No No -Wound/Ulcer Outcome Not Healed Not Healed Not Healed -Ulcer Cleansing Rinsed/ Rinsed/ Rinsed/ Irrigated with Irrigated with Irrigated with Saline Saline Saline -Foul Odor after Cleansing No No No -Bioengineered Tissue No No No -Bleeding Controlled with Pressure Pressure Pressure -Treatment Response Procedure Procedure Procedure Tolerated Well Tolerated Well Tolerated Well -Offloading Yes Yes Yes -Type of Offloading Surgical Shoe Total Contact Surgical Shoe Cast (TCC) - Left ($) -Debridement - Subq, 1st 20sq cm Yes Yes Yes Pain Scale: 0-10 Numeric Is Patient Pain Free? Yes Yes Yes WC - Nurse 3 - General Ulcer D/C NN Start: 01/08/22 11:22 Freq: Status: Active Protocol: Activity Type Activity Date Activity User E-Sign Co-Sign Detail Recorded Client Recorded Date Recorded By Document 01/08/22 11:33 DL [id number] 01/08/22 11:33 DL Document 01/15/22 11:15 MT [id number] 01/15/22 11:35 MT Document 01/22/22 11:58 RB [id number] 01/22/22 12:00 RB Document 01/29/22 11:40 RB [id number] 01/29/22 11:41 RB 01/08/22 01/15/22 01/22/22 11:33 11:15 11:58 Wound Care Nurse 3 #1 Left Lat Foot Post Op -Ulcer Cleansing Not Cleansed -Foul Odor after Cleansing No -Primary Dressing Applied Aquacel AG 2x2 Aquacel AG 2x2, Optilok 6.5x10 -Other Dressing primary layer of TCC applied -Primary Dressing Covered/Secured with Dry Gauze, Dry Gauze, Secured with Secured with Tape Tape -Aquacel AG 4x4 -Aquacel AG 2x2 1 1 -Optilok 6.5x10 1 Treatment Response Procedure Procedure Tolerated Well Tolerated Well Pain Scale: 0-10 Numeric Is Patient Pain Free? Yes Yes Yes WC - Visit Discharge Discharge Condition Stable Stable Stable Ambulatory Status Ambulatory Ambulatory Ambulatory Transportation Private Auto Private Auto Private Auto Medication Reconcilliation completed & No No provided to patient/care provider Clinical Summary of Care Provided Yes Yes Notes: 01/29/22 11:40 Wound Care Nurse 3 #1 Left Lat Foot Post Op -Ulcer Cleansing -Foul Odor after Cleansing -Primary Dressing Applied Aquacel AG 4x4 -Other Dressing -Primary Dressing Covered/Secured with Dry Gauze, Secured with Tape -Aquacel AG 4x4 1 -Aquacel AG 2x2 -Optilok 6.5x10 Treatment Response Procedure Tolerated Well Pain Scale: 0-10 Numeric Is Patient Pain Free? 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 I reviewed his case via chart review and this included his diagnostic data. Debridement was performed as noted in the clinical panel. Dressing recommendations: Aquacel Ag and secondary gauze dressing He completed a full course of advanced wound product epi fix. Wound is stabilizing however osteo was previously diagnosed. Updated cultures were obtained at a prior visit included Proteus and strep. He was on Augmentin and levofloxacin. Bone was previously debrided and this was sent to both microbiology and pathology with acute osteo. ID on consult. To follow up as scheduled. There is no local infection or further work up seen or recommended today. He had x-ray and lab ordered. Reviewed previously with progressive osseous changes to the remaining fifth metatarsal. It is noted his prior physician ordered an MRI and that was completed earlier today. This was reviewed after clinic with osteomyelitis apparent to the remaining fifth metatarsal and proximal phalanx base which are adjacent to the deep ulcer site. Labs reviewed with white blood cell count 9.8, ESR 37, C-reactive protein 24.9. Patient reports having hemoglobin A1c about 2 to 3 months ago of 9.2%. Patient is noted to have offloaded surgical shoe and wheelchair or crutches for offloading. Offloading Plastizote liners with pocket cut out was fabricated previously. Compliance encouraged. I advised him to use 2 crutches a walker or knee roller to completely keep pressure off of this ulcer. Routinely grazing the foot on the ground with the use of one crutch is probably not adequate. Therefore, we discussed the application of a total contact cast this week because he is off work. He has to return to work and refuses application today. He understands this will compromise his ability to heal his wound and may even prevent complete wound healing. Patient is also noted to have vascular studies done on 04/29/2021 demonstrating triphasic waveforms to PT and DP bilaterally with mild degree of large vessel disease despite noncompressible vessels. Right TBI was 0.78 and left TBI was 0.47 possibly consistent with small vessel disease. Vascular surgery referral was previously provided. Discussed importance of smoking cessation, blood sugar control, weight management, offloading, proper nutrition, infection control and hygiene to optimize healing potential. Tubigrip was applied. 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 Discussed trying to elevate as much as possible. All questions answered. Reviewed concerning signs and symptoms to watch out for and to contact office if any of these present or go to the emergency room. To follow-up with the wound healing center in 1 week. He is at significant risk of amputation and limb loss due to his uncontrolled diabetes and bone infection status. This note was generated with [employer] software. It may contain incorrect words, spelling, and punctuation that were not noted in checking the note before signing. He understands he is at risk for limb loss including amputations and further systemic illness.
== END 2022-01-30 23:59 | disposition home or self-care (01) ==
LOC: WC 11:00
PROVIDERS: PCP Physician Assistant Medical; Referring Provider Hospitalist; Visit Provider Podiatrist
DX: E11.621 Type 2 diabetes mellitus with foot ulcer (principal); L97.522 Non-pressure chronic ulcer of other part of left foot with fat layer exposed; M86.172 Other acute osteomyelitis, left ankle and foot; E11.42 Type 2 diabetes mellitus with diabetic polyneuropathy; E11.69 Type 2 diabetes mellitus with other specified complication; I25.10 Atherosclerotic heart disease of native coronary artery without angina pectoris; E66.9 Obesity, unspecified; I10 Essential (primary) hypertension; M79.672 Pain in left foot; Z95.1 Presence of aortocoronary bypass graft; Z68.35 Body mass index [BMI] 35.0-35.9, adult
CPT/HCPCS: 11042; 29445; 99213; G0463

== ENCOUNTER 2022-02-14 13:15 | Outpatient (RCR) | payer BC, MEDICAID, SELFPAY ==
[2022-01-31 00:24] VITALS: BP 116/70; PULSE 91; RESP 20; TEMP 36.6; BMI 35.6
[2022-02-14 13:12] VITALS: BP 158/85; PULSE 101; TEMP 35.7; BMI 35.6
--- NOTE | 2022-02-14 13:34 | PN.PCM_ITS ---
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 Patient has significant medical history including diabetes, hypertension, coronary artery disease, anemia, aortic martinez artery bypass grafting. Patient underwent previous surgical debridement of the wound with Dr. Gerber on 04/28/2021. He was previously progressing well with the wound healing center under comprehensive management and even underwent serial applications of advanced wound healing product, epi fix. After his last visit he refused total contact and return to work. He repo rts 3 days after his last visit he had increased swelling and discomfort of the foot extending into the ankle. He denies systemic illness such as fever, chill, nausea, vomiting. He denies odor redness or streaking. He is concerned it is getting infected and he relates he took some old antibiotics that he had at his house that starts with 'h'. Objective Data Objective Data Vital Signs: Vital Signs Temp Pulse Resp BP 96.2 F L 101 H 20 H 158/85 H 02/14/22 13:12 02/14/22 13:12 01/31/22 00:24 02/14/22 13:12 Weight: 122.47 kg Body Mass Index (BMI) 35.6 Physical Exam Narrative Skin Wound Narrative: Ulcer with subcutaneous tissue exposed and increased size and now probes to bone which was not noted last visit. No necrosis, purulence, erythema streaking or odor. Adjacent skin is hairless and atrophic. no necrosis or purulence or streaking Edema noted to the left lower extremity moderate (increased) VASC Pulses are palpable 2 out of 4. Capillary refill time is less than 2 seconds to digits MSK Muscle strength 5 out of 5 for all pedal groups NEURO Minor decrease in epicritic sensation noted. Patient also noted to be hypersensitive Debridement Note Debridement Note Wound debrided: left lateral forefoot Wound Grade/Stage: 3 Type of Debridement: Excisional debridement Anesthesia Used: 4% Lidocaine Solution Depth: in the subcutaneous layer Percentage of wound debrided: 100 Instrument Used: #15 blade Tissue Removed: fibrous, devitalized subcutaneous, biofilm, slough Severity: Fat Layer Exposed Amount of bleeding with debridement: Mild Bleeding Controlled with: Pressure Patient tolerated procedure: Patient tolerated procedure well Post-Debridement Measurements and Additional Note: Post-Debridement Measurements/Treatment WC - Nurse 1 - General Ulcer Assessment Start: 02/14/22 13:10 Freq: Status: Active Protocol: MARILYN Activity Type Activity Date Activity User E-Sign Co-Sign Detail Recorded Client Recorded Date Recorded By Document 02/14/22 13:12 RADHA [id number] 02/14/22 13:14 [place] 02/14/22 13:12 - Today's Visit Information Type of service Follow-up Visit (Physician/INBOUND CUSTOMER SERVICE REPRESENTATIVE ) Arrival Mode Ambulatory Patient Identification Verified (Name & Yes ) Patient Requires Transmission-Based No Precautions Safety Precautions NA Height and Weight Body Mass Index (BMI) 35.6 BMI Classification Obese Vital Signs Temperature (97.8 F-99.1 F) 96.2 F L Temperature Source Temporal Pulse Rate (60-100) 101 H Pulse Location Monitor Blood Pressure (90/60-120/80) 158/85 H Blood Pressure Mean (mm Hg) 109 Source Monitor History Since Last Visit- (Skip if this is Patient's initial visit) Have you changed medications since your Yes last visit? Any new allergies or adverse reactions No Had a fall/change in ADL's that may No increase risk of falls Signs or symptoms of abuse and/or No neglect since last visit Have you been in the hospital since your No last visit? Has dressing in place as prescribed Yes Has compression in place as prescribed N/A Has offloadiing in place as prescribed N/A Experienced any changes in pain level or No management Left Footwear Surgical Shoe with pressure relief insole Right Footwear Regular Shoe Pain Scale: 0-10 Numeric Is Patient Pain Free? Yes - Nurse 1 - General Ulcer Measurement Start: 02/14/22 13:10 Freq: Status: Active Protocol: Activity Type Activity Date Activity User E-Sign Co-Sign Detail Recorded Client Recorded Date Recorded By Document 02/14/22 13:12 RADHA [id number] 02/14/22 13:14 [place] 02/14/22 13:12 Wound Center Nurse 1 #1 Left Lat Foot Post Op -Combined with other wound No -Current Size (cm) - Length 0.8 -Current Size (cm) - Width 0.3 -Current Size (cm) - Depth 0.5 -Total Square Cm 0.24 -Photo Taken No -Tunneling No -Undermining/Tunneling No -Circular Undermining No -Exudate Amt Large -Exudate Type Serosanguineous -Wound Margin Distinct, Outline Attached -Granulation Amt None Present (0 %) -Slough/Fibrin Yes -Necrosis Amt Medium (34-66%) -Necrotic Tissue Type Adherent Slough -Structure Exposed Bone -Texture (Anna-wound Skin Appearance) No Abnormality, Assessed -Moisture (Anna-wound Skin Appearance) Assessed, Maceration -Color (Anna-wound Skin Appearance) No Abnormality, Assessed -Temperature (Anna-wound Skin No Abnormality Appearance) (Pt Warm) -Tenderness on Palpation (Anna-wound No Skin Appearance) -Ulcer Cleansing Soap and Water -Foul Odor after Cleansing No -Anesthetic Used 5% Lidocaine Gel Assessment/Plan Assessment/Plan (1) Cellulitis of left foot: CODE(S): L03.116 - Cellulitis of left lower limb (2) Type 2 diabetes mellitus with diabetic polyneuropathy: CODE(S): E11.42 - Type 2 diabetes mellitus with diabetic polyneuropathy (3) Obesity: CODE(S): E66.9 - Obesity, unspecified (4) Left foot pain: CODE(S): M79.672 - Pain in left foot (5) 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 I reviewed his case via chart review and this included his diagnostic data. Debridement was performed as noted in the clinical panel. Dressing recommendations: Aquacel Ag and secondary gauze dressing He completed a full course of advanced wound product epi fix previously. He has an extensive history of recurrent infections including osteomyelitis. He has been previously managed by infectious disease. In the recent setting he has increased inflammation which may be consistent with cellulitis versus recent increase in activity generalized inflammatory condition. Wound cultures were obtained including aerobic, anaerobic, MRSA PCR. Also prescribed Augmentin 500 mg twice daily and this may be updated as his culture results come back. It is noted he did have a prior GFR of 31 and therefore the dosing was adjusted. Updated labs were ordered including CBC, CMP, ESR, C-reactive protein. An order for updated left foot x-rays were also obtained. He does not appear to have any purulence, erythema or systemic illness. If these develop he was advised to call the answering service over the weekend or go to the emergency room. Patient is noted to have offloaded surgical shoe and wheelchair or crutches for offloading. Offloading Plastizote liners with pocket cut out was fabricated previously. Compliance encouraged. I advised him to use 2 crutches a walker or knee roller to completely keep pressure off of this ulcer. Routinely grazing the foot on the ground with the use of one crutch is probably not adequate. I does note he has not been able to be completely compliant due to his work demands. He understands this will compromise his ability to heal his wound and may even prevent complete wound healing. Patient is also noted to have vascular studies done on 04/29/2021 demonstrating triphasic waveforms to PT and DP bilaterally with mild degree of large vessel disease despite noncompressible vessels. Right TBI was 0.78 and left TBI was 0.47 possibly consistent with small vessel disease. Vascular surgery referral was previously provided. Discussed importance of smoking cessation, blood sugar control, weight management, offloading, proper nutrition, infection control and hygiene to optimize healing potential. Tubigrip was applied. 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 Discussed trying to elevate as much as possible. All questions answered. Reviewed concerning signs and symptoms to watch out for and to contact office if any of these present or go to the emergency room. To follow-up with the wound healing center in 1 week. He is at significant risk of amputation and limb loss due to his uncontrolled diabetes and bone infection status. This note was generated with [employer] website dictation software. It may contain incorre ct words, spelling, and punctuation that were not noted in checking the note before signing. He understands he is at risk for limb loss including amputations and further systemic illness. The medical decision making level is moderate. There is noted moderate risk of morbidity after considering this treatment plan and diagnostic data. Considerations were given to prescription management, decisions regarding surgical options, or social determinants of health. The problems addressed require a moderate decision making level which includes one or more chronic illnesses (w/ exacerbation, progression, or side effects), two or more stable chronic illnesses, one undiagnosed new problem w/ uncertain prognosis, one acute illness with systemic symptoms, or one acute complicated injury.
--- NOTE | 2022-02-14 14:01 | RAD_ITS ---
STUDY: X-RAY - LEFT FOOT CLINICAL: Male, 51 years old. OSTEOMYELITI TECHNIQUE: 3 view(s) of the foot. COMPARISON: 08/20/2021 FINDINGS: Normal talus, calcaneus, and tarsal bones. Normal visualized subtalar, talonavicular, calcaneocuboid, tarsal and tarsometatarsal articulations. Normal metatarsi. There is degenerative arthrosis of the metatarsophalangeal joint of the hallux . Normal tibial and fibular sesamoid bones. Normal interphalangeal joint of the great toe. Normal phalanges of the great toe. Normal second through fifth metatarsophalangeal joints. Normal interphalangeal joints and phalanges of the lesser toes. Ulcer of the lateral aspect and plantar aspect of the foot with continued bony destruction of the distal fifth metatarsal bone consistent with osteomyelitis. RAD/Foot min 3 Views IMPRESSION: Cellulitis with ulcer and osteomyelitis of the distal fifth metatarsal bone. Electronically Signed: Jay Bonilla MD at 16:51 EDT ,
[2022-02-14 18:08] LABS: M R Staph aureus DNA By PCR Negative (Negative); Probe Check PASS; Staph aureus DNA By PCR POSITIVE (Negative)
== END 2022-03-01 23:59 | disposition home or self-care (01) ==
LOC: WC 13:15
PROVIDERS: PCP Physician Assistant Medical; Referring Provider Hospitalist; Visit Provider Podiatrist
DX: E11.621 Type 2 diabetes mellitus with foot ulcer (principal); L97.522 Non-pressure chronic ulcer of other part of left foot with fat layer exposed; M86.9 Osteomyelitis, unspecified; E11.42 Type 2 diabetes mellitus with diabetic polyneuropathy; L03.116 Cellulitis of left lower limb; I25.10 Atherosclerotic heart disease of native coronary artery without angina pectoris; I10 Essential (primary) hypertension; M79.672 Pain in left foot; E66.9 Obesity, unspecified; Z68.35 Body mass index [BMI] 35.0-35.9, adult
CPT/HCPCS: 11042; 73630; 87070; 87075; 87077; 87186; 87205; 87640

== ENCOUNTER 2022-02-14 13:48 | Outpatient (CLI) | payer BC, MEDICAID, SELFPAY ==
[2022-02-14 14:06] LABS: Erythrocyte Sedimentation Rate 62 mm/hr (0-20)
[2022-02-14 14:07] LABS: Absolute Lymphocyte Count 1.99 X10^3/uL (0.83-4.51); Absolute Neutrophil Count 10.2 X10^3/uL (2.0-7.7); Basophil# 0.02 X10^3/uL; Basophil% 0.1 % (0-1); Eosinophil# 0.41 X10^3/uL; Hematocrit 29.3 % (40-54); Hemoglobin 9.9 g/dL (13.0-16.5); Lymphocyte # 1.99 X10^3/ul (0.83-4.51); Lymphocyte % 14.3 % (19-41); Mean Corp Hgb Conc 33.8 g/dL (32-36); Mean Corpuscular Volume 85.9 fL (80-94); Mean Platelet Vol. 9.4 fl (6.2-12.0); Monocyte# 1.16 X10^3/uL; Monocyte% 8.4 % (0-10); NRBC Flagged by Analyzer 0 % (0-5); Neutrophil # 10.15 X10^3/uL (2.7-7.7); Neutrophil % 73.2 % (47-70); Platelet Count 368 K/mm3 (150-450); RBC Distribution Width CV 12.1 % (11.6-14.6); RBC Distribution Width SD 38.1 fl (35.1-43.9); Red Blood Count 3.41 M/mm3 (4.6-6.2); White Blood Count 13.9 K/mm3 (4.4-11.0)
[2022-02-14 14:27] LABS: ALB/GLOB Ratio 0.7 RATIO (0.9-2.4); AST(SGOT) 11 U/L (15-37); Alanine Aminotransfer ALT/SGPT 15 U/L (16-61); Albumin, Serum 3.1 g/dL (3.2-5.0); Alkaline Phosphatase 83 U/L (45-117); Anion Gap 5 (5-15); BUN 32 mg/dL (7-18); BUN/Creat Ratio 21.8 RATIO (10-20); Chloride 107 mmol/L (98-107); Creatinine, Serum 1.47 mg/dL (0.70-1.30); EST Glomerular Filtration Rate 54 mL/min (>60); Est Glom Filt Rate - Afr Amer 65 mL/min (>60); Globulin 4.6 g/dL (2.2-4.2); Glucose 186 mg/dL (74-106); Potassium 4.2 mmol/L (3.5-5.1); Protein, Total 7.7 g/dL (6.4-8.2); Sodium Level 138 mmol/L (136-145)
== END 2022-02-14 23:59 | disposition home or self-care (01) ==
PROVIDERS: PCP Physician Assistant Medical; Visit Provider Podiatrist
DX: L03.116 Cellulitis of left lower limb (principal); M86.9 Osteomyelitis, unspecified
CPT/HCPCS: 36415; 80053; 85025; 85652; 86140

== ENCOUNTER 2022-03-19 11:00 | Outpatient (RCR) | payer OTHER, MEDICAID, SELFPAY ==
[2022-03-02 00:23] VITALS: BP 158/85; PULSE 101; RESP 20; TEMP 35.7; BMI 35.6
[2022-03-05 11:20] VITALS: BP 125/67; PULSE 86; RESP 18; BMI 35.6
--- NOTE | 2022-03-05 11:46 | PN.PCM_ITS ---
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 Patient has significant medical history including diabetes, hypertension, coronary artery disease, anemia, aortic martinez artery bypass grafting. Patient underwent previous surgical debridement of the wound with Dr. Gerber on 04/28/2021. He was previously progressing well with the wound healing center under comprehensive management and even underwent serial applications of advanced wound healing product, epi fix. After his last visit he refused total contact and return to work. He de nies systemic illness such as fever, chill, nausea, vomiting. He denies odor redness or streaking. He completed his oral antibiotics reports his foot looks so much better with resolved infection signs. He was not able to follow-up with infectious disease as advised. 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 He is not currently interested in getting the recommended cam walker for use when he is not at work but will consider it. Progress of Wound: Stable Objective Data Objective Data Vital Signs: Vital Signs Temp Pulse Resp BP 96.2 F L 86 18 125/67 H 03/02/22 00:23 03/05/22 11:20 03/05/22 11:20 03/05/22 11:20 Oxygen Delivery Method Room Air Weight: 122.47 kg Body Mass Index (BMI) 35.6 Physical Exam Narrative Skin Wound Narrative: Ulcer with subcutaneous tissue exposed and increased deep nonviable fibrous tissue plug. No necrosis, purulence, erythema streaking or odor. Adjacent skin is hairless and atrophic. no necrosis or purulence or streaking Edema noted to the left lower extremity moderate (increased) VASC Pulses are palpable 2 out of 4. Capillary refill time is less than 2 seconds to digits MSK Muscle strength 5 out of 5 for all pedal groups NEURO Minor decrease in epicritic sensation noted. Patient also noted to be hypersensitive Debridement Note Debridement Note Wound debrided: lateral left forefoot Wound Grade/Stage: 3 Type of Debridement: Excisional debridement Anesthesia Used: 4% Lidocaine Solution Depth: in the subcutaneous layer Percentage of wound debrided: 100 Instrument Used: #15 blade Tissue Removed: fibrous, devitalized subcutaneous, biofilm, slough Severity: Fat Layer Exposed Amount of bleeding with debridement: Mild Bleeding Controlled with: Pressure Patient tolerated procedure: Patient tolerated procedure well Post-Debridement Measurements and Additional Note: Post-Debridement Me asurements/Treatment - Nurse 1 - General Ulcer Assessment Start: 03/05/22 11:20 Freq: Status: Active Protocol: MARILYN Activity Type Activity Date Activity User E-Sign Co-Sign Detail Recorded Client Recorded Date Recorded By Document 03/05/22 11:20 [facility] [id number] 03/05/22 11:29 [facility] 03/05/22 11:20 - Today's Visit Information Type of service Follow-up Visit (Physician/FIRST AID TRAINER ) Arrival Mode Ambulatory Transfer Assistance None Accompanied by Patient Identification Verified (Name & Yes ) Patient Requires Transmission-Based No Precautions Height and Weight Body Mass Index (BMI) 35.6 BMI Classification Obese Vital Signs Temperature Source Temporal Pulse Rate (60-100) 86 Pulse Location Monitor Respiratory Rate (12-18) 18 Respiratory rate source Observation Oxygen Delivery Method Room Air Blood Pressure (90/60-120/80) 125/67 H Blood Pressure Mean (mm Hg) 86 Source Monitor Position Sitting Blood Pressure Location Left Arm History Since Last Visit- (Skip if this is Patient's initial visit) Have you changed medications since your No last visit? Any new allergies or adverse reactions No Had a fall/change in ADL's that may No increase risk of falls Signs or symptoms of abuse and/or No neglect since last visit Have you been in the hospital since your No last visit? Has dressing in place as prescribed Yes Has compression in place as prescribed N/A Has offloadiing in place as prescribed Yes Experienced any changes in pain level or No management Left Footwear Surgical Shoe with pressure relief insole Right Footwear Regular Shoe Pain Scale: 0-10 Numeric Is Patient Pain Free? Yes - Nurse 1 - General Ulcer Measurement Start: 03/05/22 11:20 Freq: Status: Active Protocol: Activity Type Activity Date Activity User E-Sign Co-Sign Detail Recorded Client Recorded Date Recorded By Document 03/05/22 11:20 [facility] [id number] 03/05/22 11:29 [facility] 03/05/22 11:20 Wound Center Nurse 1 #1 Left Lat Foot Post Op -Combined with other wound No -Current Size (cm) - Length 1.1 -Current Size (cm) - Width 0.5 -Current Size (cm) - Depth 0.5 -Total Square Cm 0.55 -Date of Last Picture (Recall this 03/05/22 field) -Photo Taken Yes -Epithelialization None Present -Tunneling Yes -Tunneling Position (O'clock) 12 -Tunneling Distance (cm) 1.6 -Exudate Amt Medium -Exudate Type Sanguineous -Wound Margin Distinct, Outline Attached -Granulation Amt Small (1-33%) -Granulation Quality [place] -Slough/Fibrin Yes -Necrosis Amt Large (67-100%) -Necrotic Tissue Type Adherent Slough -Texture (Anna-wound Skin Appearance) Assessed,Callus ,Scarring -Moisture (Anna-wound Skin Appearance) Assessed,Dry/ Scaly -Color (Anna-wound Skin Appearance) Assessed -Temperature (Anna-wound Skin No Abnormality Appearance) (Pt Warm) -Tenderness on Palpation (Anna-wound No Skin Appearance) -Ulcer Cleansing Rinsed/ Irrigated with Saline -Foul Odor after Cleansing No -Anesthetic Used 5% Lidocaine Gel WC - Nurse 2 - General Ulcer CM Notes Start: 03/05/22 11:20 Freq: Status: Active Protocol: Activity Type Activity Date Activity User E-Sign Co-Sign Detail Recorded Client Recorded Date Recorded By Document 03/05/22 11:35 [id number] 03/05/22 11:38 GABBI 03/05/22 11:35 Wound Center Nurse 2 -Time 11:36 -Correct Patient Yes -Correct Side, Site, Position Yes -Correct Procedure Yes -Procedure Performed Yes -Type of Procedure Debridement -Clinical Debridement Subcutaneous -Tissue Removed Subcutaneous -Post Debridement (cm) - Length 1.3 -Post Debridement (cm) - Width 0.5 -Post Debridement (cm) - Depth 0.3 -Total Square (Post) (cm) 0.65 -Area of Debridement (cm) - Length 1.3 -Area of Debridement (cm) - Width 0.5 -Total Square (Area) (cm) 0.65 -Tunneling No -Undermining/Tunneling No -Circular Undermining No -Wound/Ulcer Outcome Not Healed -Ulcer Cleansing Rinsed/ Irrigated with Saline -Foul Odor after Cleansing No -Bioengineered Tissue No -Bleeding Controlled with Pressure -Treatment Response Procedure Tolerated Well -Offloading Yes -Type of Offloading Surgical Shoe -Debridement - Subq, 1st 20sq cm Yes Pain Scale: 0-10 Numeric Is Patient Pain Free? 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 I reviewed his case via chart review and this included his diagnostic data. Debridement was performed as noted in the clinical panel. The purpose of the debridement was reviewed in detail again today. The patient and his had many questions about the purpose of debridement. Dressing recommendations: Aquacel Ag and secondary gauze dressing He completed a full course of advanced wound product epi fix previously. He has an extensive history of recurrent infections including osteomyelitis. He has been previously managed by infectious disease. In the recent setting he has increased inflammation which may be consistent with cellulitis versus recent increase in activity generalized inflammatory condition. Wound cultures were obtained including aerobic, anaerobic, MRSA PCR. Also prescribed Augmentin 500 mg twice daily and this may be updated as his culture results come back. It is noted he did have a prior GFR of 31 and therefore the dosing was adjusted. To follow-up with infectious disease as scheduled. He completed his course of oral antibiotics and this did temporarily improve his foot. He defers amputation option because he is not able to take off work. Patient is noted to have offloaded surgical shoe and wheelchair or crutches for offloading. Offloading Plastizote liners with pocket cut out was fabricated previously. Compliance encouraged. I advised him to use 2 crutches a walker or knee roller to completely keep pressure off of this ulcer. Routinely grazing the foot on the ground with the use of one crutch is probably not adequate. I does note he has not been able to be completely compliant due to his work demands. He understands this will compromise his ability to heal his wound and may even prevent complete wound healing. He was provided with another order to get a cam walker boot. It is noted that he did not obtain this the last time this was provided. Patient is also noted to have vascular studies done on 04/29/2021 demonstrating triphasic waveforms to PT and DP bilaterally with mild degree of large vessel disease despite noncompressible vessels. Right TBI was 0.78 and left TBI was 0.47 possibly consistent with small vessel disease. Vascular surgery referral was previously provided. Discussed importance of smoking cessation, blood sugar control, weight management, offloading, proper nutrition, infection control and hygiene to optimize healing potential. Tubigrip was applied. 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 Discussed trying to elevate a s much as possible. All questions answered. Reviewed concerning signs and symptoms to watch out for and to contact office if any of these present or go to the emergency room. To follow-up with the wound healing center in 1 week. He is at significant risk of amputation and limb loss due to his uncontrolled diabetes and bone infection status. This note was generated with [employer] dictation software. It may contain incorrect words, spelling, and punctuation that were not noted in checking the note before signing. He understands he is at risk for limb loss including amputations and further systemic illness. The medical decision making level is low. There is noted low risk of morbidity after considering this treatment plan and diagnostic data. The problems addressed require a low medical decision making level which includes two or more minor problems, a stable chronic illness, or an acute uncomplicated illness or injury.
[2022-03-19 11:08] VITALS: BP 112/63; PULSE 84; RESP 16; TEMP 35.8; BMI 35.6
--- NOTE | 2022-03-19 13:08 | PN.PCM_ITS ---
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 Patient has significant medical history including diabetes, hypertension, coronary artery disease, anemia, aortic martinez artery bypass grafting. Patient underwent previous surgical debridement of the wound with Dr. Gerber on 04/28/2021. He was previously progressing well with the wound healing center under comprehensive management and even underwent serial applications of advanced wound healing product, epi fix. After his last visit he refused total contact and return to work. He de nies systemic illness such as fever, chill, nausea, vomiting. He denies odor redness or streaking. He completed his oral antibiotics reports his foot looks so much better with resolved infection signs. He is planning to follow up with infectious disease still. 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 He is not currently interested in getting the recommended cam walker for use when he is not at work but will consider it. Progress of Wound: Stable Objective Data Objective Data Vital Signs: Vital Signs Temp Pulse Resp BP 96.4 F L 84 16 112/63 03/19/22 11:08 03/19/22 11:08 03/19/22 11:08 03/19/22 11:08 Oxygen Delivery Method Room Air Weight: 122.47 kg Body Mass Index (BMI) 35.6 Physical Exam Narrative Skin Wound Narrative: Ulcer with subcutaneous tissue exposed and increased deep nonviable fibrous tissue plug. No necrosis, purulence, erythema streaking or odor. Adjacent skin is hairless and atrophic. no necrosis or purulence or streaking Edema noted to the left lower extremity moderate (increased) VASC Pulses are palpable 2 out of 4. Capillary refill time is less than 2 seconds to digits MSK Muscle strength 5 out of 5 for all pedal groups NEURO Minor decrease in epicritic sensation noted. Patient also noted to be hypersensitive Debridement Note Debridement Note Wound debrided: left foot Wound Grade/Stage: 3 Type of Debridement: Excisional debridement Anesthesia Used: 4% Lidocaine Solution Depth: in the subcutaneous layer Percentage of wound debrided: 100 Instrument Used: #15 blade Tissue Removed: fibrous, devitalized subcutaneous, biofilm, slough Severity: Fat Layer Exposed Amount of bleeding with debridement: Mild Bleeding Controlled with: Pressure Patient tolerated procedure: Patient tolerated procedure well Post-Debridement Measurements and Additional Note: Post-Debridement Measurements/Treatment - Nurse 1 - General Ulcer Assessment Start: 03/05/22 11:20 Freq: Status: Active Protocol: MARILYN Activity Type Activity Date Activity User E-Sign Co-Sign Detail Recorded Client Recorded Date Recorded By Document 03/05/22 11:20 [facility] [id number] 03/05/22 11:29 BM Document 03/19/22 11:08 [facility] [id number] 03/19/22 11:14 [facility] 03/05/22 03/19/22 11:20 11:08 - Today's Visit Information Type of service Follow-up Visit Follow-up Visit (Physician/GAS ENGINE MECHANIC (Physician/GAS ENGINE MECHANIC ) ) Arrival Mode Ambulatory Ambulatory Transfer Assistance None None Accompanied by Patient Identification Verified (Name & Yes Yes ) Patient Requires Transmission-Based No No Precautions Height and Weight Body Mass Index (BMI) 35.6 35.6 BMI Classification Obese Obese Vital Signs Temperature (97.8 F-99.1 F) 96.4 F L Temperature Source Temporal Temporal Pulse Rate (60-100) 86 84 Pulse Location Monitor Monitor Respiratory Rate (12-18) 18 16 Respiratory rate source Observation Observation Oxygen Delivery Method Room Air Room Air Blood Pressure (90/60-120/80) 125/67 H 112/63 Blood Pressure Mean (mm Hg) 86 79 Source Monitor Monitor Position Sitting Sitting Blood Pressure Location Left Arm Left Arm History Since Last Visit- (Skip if this is Patient's initial visit) Have you changed medications since your No No last visit? Any new allergies or adverse reactions No No Had a fall/change in ADL's that may No No increase risk of falls Signs or symptoms of abuse and/or No No neglect since last visit Have you been in the hospital since your No No last visit? Has dressing in place as prescribed Yes Yes Has compression in place as prescribed N/A No Has offloadiing in place as prescribed Yes Yes Experienced any changes in pain level or No No management Left Footwear Surgical Shoe Surgical Shoe with pressure with pressure relief insole relief insole Right Footwear Regular Shoe Regular Shoe Pain Scale: 0-10 Numeric Is Patient Pain Free? Yes Yes [place] Nurse 1 - General Ulcer Measurement Start: 03/05/22 11:20 Freq: Status: Active Protocol: Activity Type Activity Date Activity User E-Sign Co-Sign Detail Recorded Client Recorded Date Recorded By Document 03/05/22 11:20 [facility] [id number] 03/05/22 11:29 BM Document 03/19/22 11:08 [facility] [id number] 03/19/22 11:14 [facility] 03/05/22 03/19/22 11:20 11:08 Wound Center Nurse 1 #1 Left Lat Foot Post Op -Combined with other wound No No -Current Size (cm) - Length 1.1 0.8 -Current Size (cm) - Width 0.5 0.2 -Current Size (cm) - Depth 0.5 0.3 -Total Square Cm 0.55 0.16 -Date of Last Picture (Recall this 03/05/22 03/19/22 field) -Photo Taken Yes Yes -Epithelialization None Present Medium 34-66% -Tunneling Yes No -Tunneling Position (O'clock) 12 -Tunneling Distance (cm) 1.6 -Undermining/Tunneling No -Circular Undermining No -Exudate Amt Medium Small -Exudate Type Sanguineous Serosanguineous -Wound Margin Distinct, Distinct, Outline Outline Attached Attached -Granulation Amt Small (1-33%) Large (67-100%) -Granulation Quality [place] Red -Slough/Fibrin Yes No -Necrosis Amt Large (67-100%) None Present (0 %) -Necrotic Tissue Type Adherent Slough Adherent Slough -Texture (Anna-wound Skin Appearance) Assessed,Callus Assessed,Callus ,Scarring ,Scarring -Moisture (Anna-wound Skin Appearance) Assessed,Dry/ Assessed Scaly -Color (Anna-wound Skin Appearance) Assessed Assessed -Temperature (Anna-wound Skin No Abnormality No Abnormality Appearance) (Pt Warm) (Pt Warm) -Tenderness on Palpation (Anna-wound No No Skin Appearance) -Ulcer Cleansing Rinsed/ Rinsed/ Irrigated with Irrigated with Saline Saline -Foul Odor after Cleansing No No -Anesthetic Used 5% Lidocaine 5% Lidocaine Gel Gel WC - Nurse 2 - General Ulcer CM Notes Start: 03/05/22 11:20 Freq: Status: Active Protocol: Activity Type Activity Date Activity User E-Sign Co-Sign Detail Recorded Client Recorded Date Recorded By Document 03/05/22 11:35 [id number] 03/05/22 11:38 Document 03/19/22 11:24 [id number] 03/19/22 11:24 03/05/22 03/19/22 11:35 11:24 Wound Center Nurse 2 #1 Left Lat Foot Post Op -Time 11:36 11:24 -Correct Patient Yes Yes -Correct Side, Site, Position Yes Yes -Correct Procedure Yes Yes -Procedure Performed Yes Yes -Type of Procedure Debridement Debridement -Clinical Debridement Subcutaneous Subcutaneous -Tissue Removed Subcutaneous Subcutaneous -Post Debridement (cm) - Length 1.3 0.8 -Post Debridement (cm) - Width 0.5 0.3 -Post Debridement (cm) - Depth 0.3 0.3 -Total Square (Post) (cm) 0.65 0.24 -Area of Debridement (cm) - Length 1.3 0.8 -Area of Debridement (cm) - Width 0.5 0.3 -Total Square (Area) (cm) 0.65 0.24 -Tunneling No No -Undermining/Tunneling No No -Circular Undermining No No -Wound/Ulcer Outcome Not Healed Not Healed -Ulcer Cleansing Rinsed/ Rinsed/ Irrigated with Irrigated with Saline Saline -Foul Odor after Cleansing No No -Bioengineered Tissue No No -Bleeding Controlled with Pressure Pressure -Treatment Response Procedure Procedure Tolerated Well Tolerated Well -Offloading Yes Yes -Type of Offloading Surgical Shoe Surgical Shoe -Debridement - Subq, 1st 20sq cm Yes Yes Pain Scale: 0-10 Numeric Is Patient Pain Free? Yes Yes WC - Nurse 3 - General Ulcer D/C NN Start: 03/05/22 11:20 Freq: Status: Active Protocol: Activity Type Activity Date Activity User E-Sign Co-Sign Detail Recorded Client Recorded Date Recorded By Document 03/05/22 11:49 [facility] [id number] 03/05/22 11:50 [facility] Document 03/19/22 11:31 [facility] [id number] 03/19/22 11:32 [facility] 03/05/22 03/19/22 11:49 11:31 Wound Care Nurse 3 #1 Left Lat Foot Post Op -Ulcer Cleansing Rinsed/ Rinsed/ Irrigated with Irrigated with Saline Saline -Foul Odor after Cleansing No No -Primary Dressing Applied Aquacel AG 2x2 Aquacel AG 4x4 -Primary Dressing Covered/Secured with Dry Gauze, Dry Gauze, Secured with Secured with Tape Tape -Aquacel AG 4x4 1 -Aquacel AG 2x2 1 Treatment Response Procedure Procedure Tolerated Well Tolerated Well Pain Scale: 0-10 Numeric Is Patient Pain Free? 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 I reviewed his case via chart review and this included his diagnostic data. Debridement was performed as noted in the clinical panel. The purpose of the debridement was reviewed in detail again today. ment. Dressing recommendations: Aquacel Ag and secondary gauze dressing He completed a full course of advanced wound product epi fix previously. He has an extensive history of recurrent infections including osteomyelitis. He has been previously managed by infectious disease. In the recent setting he has increased inflammation which may be consistent with cellulitis versus recent increase in activity generalized inflammatory condition. Wound cultures were obtained including aerobic, anaerobic, MRSA PCR. Also prescribed Augmentin 500 mg twice daily and this may be updated as his culture results come back. It is noted he did have a prior GFR of 31 and therefore the dosing was adjusted. To follow-up with infectious disease as scheduled. He completed his course of oral antibiotics and this did temporarily improve his foot. He defers amputation option because he is not able to take off work. Patient is noted to have offloaded surgical shoe and wheelchair or crutches for offloading. Offloading Plastizote liners with pocket cut out was fabricated previously. Compliance encouraged. I advised him to use 2 crutches a walker or knee roller to completely keep pressure off of this ulcer. Routinely grazing the foot on the ground with the use of one crutch is probably not adequate. I does note he has not been able to be completely compliant due to his work demands. He understands this will compromise his ability to heal his wound and may even prevent complete wound healing. He was provided with another order to get a cam walker boot. It is noted that he did not obtain this the last time this was provided. Patient is also noted to have vascular studies done on 04/29/2021 demonstrating triphasic waveforms to PT and DP bilaterally with mild degree of large vessel disease despite noncompressible vessels. Right TBI was 0.78 and left TBI was 0.47 possibly consistent with small vessel disease. Vascular surgery referral was previously provided. Discussed importance of smoking cessation, blood sugar control, weight management, offloading, proper nutrition, infection control and hygiene to optimize healing potential. Tubigrip was applied. 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 Discussed trying to elevate as much as possible. All questions answered. Reviewed concerning signs and symptoms to watch out for and to contact office if any of these present or go to the emergency room. To follow-up with the wound healing center in 1 week. He is at significant risk of amputation and limb loss due to his uncontrolled diabetes and bone infection status. This note was generated with [employer] dictation software. It may contain incorrect words, spelling, and punctuation that were not noted in checking the note before signing. He understands he is at risk for limb loss including amputations and further systemic illness.
== END 2022-04-01 23:59 | disposition home or self-care (01) ==
LOC: WC 11:00
PROVIDERS: PCP Physician Assistant Medical; Referring Provider Hospitalist; Visit Provider Podiatrist
DX: E11.621 Type 2 diabetes mellitus with foot ulcer (principal); L97.522 Non-pressure chronic ulcer of other part of left foot with fat layer exposed; M86.9 Osteomyelitis, unspecified; E11.42 Type 2 diabetes mellitus with diabetic polyneuropathy; L03.116 Cellulitis of left lower limb; E66.9 Obesity, unspecified; M79.672 Pain in left foot; I10 Essential (primary) hypertension; I25.10 Atherosclerotic heart disease of native coronary artery without angina pectoris
CPT/HCPCS: 11042

== ENCOUNTER 2022-04-30 11:00 | Outpatient (RCR) | payer OTHER, MEDICAID, SELFPAY ==
[2022-04-02 00:38] VITALS: BP 112/63; PULSE 84; RESP 16; TEMP 35.8; BMI 35.6
[2022-04-16 10:39] VITALS: BP 128/67; PULSE 67; RESP 16; TEMP 36.6; BMI 35.6
--- NOTE | 2022-04-16 15:14 | PN.PCM_ITS ---
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 Patient has significant medical history including diabetes, hypertension, coronary artery disease, anemia, aortic martinez artery bypass grafting. Patient underwent previous surgical debridement of the wound with Dr. Gerber on 04/28/2021. He was previously progressing well with the wound healing center under comprehensive management and even underwent serial applications of advanced wound healing product, epi fix. After his last visit he refused total contact and return to work. He denies systemic illness such as fever, chill, nausea, vomiting. He denies odor redness or streaking. He is in the process of starting a new job task so he is not required to drive which is irritating his ulcer site. He applies bag [place] to the ulcer site because he reports it has been around for hundreds of years. Progress of Wound: improving Objective Data Objective Data Vital Signs: Vital Signs Temp Pulse Resp BP 98 F 67 16 128/67 H 04/16/22 10:39 04/16/22 10:39 04/16/22 10:39 04/16/22 10:39 Oxygen Delivery Method Room Air Weight: 122.47 kg Body Mass Index (BMI) 35.6 Physical Exam Narrative Skin Wound Narrative: Ulcer with subcutaneous tissue exposed and decreased depth. No necrosis, purulence, erythema streaking or odor. Adjacent skin is hairless and atrophic. no necrosis or purulence or streaking Edema noted to the left lower extremity moderate (increased) VASC Pulses are palpable 2 out of 4. Capillary refill time is less than 2 seconds to digits MSK Muscle strength 5 out of 5 for all pedal groups NEURO Minor decrease in epicritic sensation noted. Patient also noted to be hypersensitive Debridement Note Debridement Note Wound debrided: left foot Wound Grade/Stage: 3 Type of Debridement: Excisional debridement Anesthesia Used: 4% Lidocaine Solution Depth: in the subcutaneous layer Percentage of wound debrided: 100 Instrument Used: #15 blade Tissue Removed: fibrous, devitalized subcutaneous, biofilm, slough Severity: Fat Layer Exposed Amount of bleeding with debridement: Mild Bleeding Controlled with: Pressure Patient tolerated procedure: Patient tolerated procedure well Post-Debridement Measurements and Additional Note: Post-Debridement Measurements/Treatment WC - Nurse 1 - General Ulcer Assessment Start: 04/16/22 10:37 Freq: Status: Active Protocol: MARILYN Activity Type Activity Date Activity User E-sign Co-sign Detail Recorded Client Recorded Date Recorded By Document 04/16/22 10:39 [facility] [id number] 04/16/22 10:44 [facility] 04/16/22 10:39 - Today's Visit Information Type of service Follow-up Visit (Physician/COMPUTERIZED MILL RECORDER ) Arrival Mode Ambulatory Transfer Assistance None Patient Identification Verified (Name & Yes ) Patient Requires Transmission-Based No Precautions Height and Weight Body Mass Index (BMI) 35.6 BMI Classification Obese Vital Signs Temperature (97.8 F-99.1 F) 98 F Temperature Source Temporal Pulse Rate (60-100) 67 Pulse Location Monitor Respiratory Rate (12-18) 16 Respiratory rate source Observation Oxygen Delivery Method Room Air Blood Pressure (90/60-120/80) 128/67 H Blood Pressure Mean (mm Hg) 87 Source Monitor Position Sitting Blood Pressure Location Left Arm History Since Last Visit- (Skip if this is Patient's initial visit) Have you changed medications since your No last visit? Any new allergies or adverse reactions No Had a fall/change in ADL's that may No increase risk of falls Signs or symptoms of abuse and/or No neglect since last visit Have you been in the hospital since your No last visit? Has dressing in place as prescribed Yes Has compression in place as prescribed N/A Has offloadiing in place as prescribed No Experienced any changes in pain level or No management Left Footwear Regular Shoe Right Footwear Regular Shoe Pain Scale: 0-10 Numeric Is Patient Pain Free? Yes - Nurse 1 - General Ulcer Measurement Start: 04/16/22 10:37 Freq: Status: Active Protocol: Activity Type Activity Date Activity User E-sign Co-sign Detail Recorded Client Recorded Date Recorded By Document 04/16/22 10:39 [facility] [id number] 04/16/22 10:44 [facility] 04/16/22 10:39 Wound Center Nurse 1 #1 Left Lat Foot Post Op -Combined with other wound No -Current Size (cm) - Length 0.4 -Current Size (cm) - Width 0.1 -Current Size (cm) - Depth 0.3 -Total Square Cm 0.04 -Date of Last Picture (Recall this 04/16/22 field) -Photo Taken No -Epithelialization None Present -Tunneling No -Undermining/Tunneling No -Circular Undermining No -Exudate Amt Small -Exudate Type Serous -Wound Margin Distinct, Outline Attached -Granulation Amt Large (67-100%) -Granulation Quality [place] -Slough/Fibrin No -Necrosis Amt None Present (0 %) -Texture (Anna-wound Skin Appearance) Assessed,Callus ,Scarring -Moisture (Anna-wound Skin Appearance) Assessed, Maceration -Color (Anna-wound Skin Appearance) Assessed -Temperature (Anna-wound Skin No Abnormality Appearance) (Pt Warm) -Tenderness on Palpation (Anna-wound No Skin Appearance) -Ulcer Cleansing Rinsed/ Irrigated with Saline -Foul Odor after Cleansing No -Anesthetic Used 5% Lidocaine Gel WC - Nurse 2 - General Ulcer CM Notes Start: 04/16/22 10:37 Freq: Status: Active Protocol: Activity Type Activity Date Activity User E-sign Co-sign Detail Recorded Client Recorded Date Recorded By Document 04/16/22 10:57 [id number] 04/16/22 10:59 [facility] 04/16/22 10:57 Wound Center Nurse 2 -Time 10:58 -Correct Patient Yes -Correct Side, Site, Position Yes -Correct Procedure Yes -Procedure Performed Yes -Type of Procedure Debridement -Clinical Debridement Subcutaneous -Tissue Removed Subcutaneous -Post Debridement (cm) - Length 0.6 -Post Debridement (cm) - Width 0.1 -Post Debridement (cm) - Depth 0.1 -Total Square (Post) (cm) 0.06 -Area of Debridement (cm) - Length 0.6 -Area of Debridement (cm) - Width 0.1 -Total Square (Area) (cm) 0.06 -Tunneling No -Undermining/Tunneling No -Circular Undermining No -Wound/Ulcer Outcome Not Healed -Ulcer Cleansing Rinsed/ Irrigated with Saline -Foul Odor after Cleansing No -Bioengineered Tissue No -Bleeding Controlled with Pressure -Treatment Response Procedure Tolerated Well -Offloading No -Debridement - Subq, 1st 20sq cm Yes Pain Scale: 0-10 Numeric Is Patient Pain Free? Yes MARISSA - Nurse 3 - General Ulcer D/C NN Start: 04/16/22 10:37 Freq: Status: Active Protocol: Activity Type Activity Date Activity User E-sign Co-sign Detail Recorded Client Recorded Date Recorded By Document 04/16/22 11:14 [facility] [id number] 04/16/22 11:15 [facility] 04/16/22 11:14 Wound Care Nurse 3 #1 Left Lat Foot Post Op -Ulcer Cleansing Rinsed/ Irrigated with Saline -Primary Dressing Applied C Hydrogel ($) -Primary Dressing Covered/Secured with Dry Gauze, Secured with Tape Treatment Response Procedure Tolerated Well Pain Scale: 0-10 Numeric Is Patient Pain Free? 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 I reviewed his case via chart review and this included his diagnostic data. Debridement was performed as noted in the clinical panel. The purpose of the debridement was reviewed in detail again today. Dressing recommendations: hydrogel and secondary gauze dressing; provided today He completed a full course of advanced wound product epi fix previously. He has an extensive history of recurrent infections including osteomyelitis. He has been previously managed by infectious disease. In the recent setting he has increased inflammation which may be consistent with cellulitis versus recent increase in activity generalized inflammatory condition. Wound cultures were obtained including aerobic, anaerobic, MRSA PCR. Also prescribed Augmentin 500 mg twice daily and this may be updated as his culture results come back. It is noted he did have a prior GFR of 31 and therefore the dosing was adjusted. To follow-up with infectious disease as scheduled. He completed his course of oral antibiotics and this did temporarily improve his foot. He defers amputation option because he is not able to take off work. His new work task plan is noted and anticipated start date is within the next month. Patient is noted to have offloaded surgical shoe and wheelchair or crutches for offloading. Offloading Plastizote liners with pocket cut out was fabricated previously. Compliance encouraged. I advised him to use 2 crutches a walker or knee roller to completely keep pressure off of this ulcer. Routinely grazing the foot on the ground with the use of one crutch is probably not adequate. I does note he has not been able to be completely compliant due to his work demands. He understands this will compromise his ability to heal his wound and may even prevent complete wound healing. He was provided with another order to get a cam walker boot. It is noted that he did not obtain this the last time this was provided. Patient is also noted to have vascular studies done on 04/29/2021 demonstrating triphasic waveforms to PT and DP bilaterally with mild degree of large vessel disease despite noncompressible vessels. Right TBI was 0.78 and left TBI was 0.47 possibly consistent with small vessel disease. Vascular surgery referral was previously provided. Discussed importance of smoking cessation, blood sugar control, weight management, offloading, proper nutrition, infection control and hygiene to optimize healing potential. Tubigrip was applied. 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 Discussed trying to elevate as much as possible. All questions answered. Reviewed concerning signs and symptoms to watch out for and to contact office if any of these present or go to the emergency room. To follow-up with the wound healing center in 1 week. He is at significant risk of amputation and limb loss due to his uncontrolled diabetes and bone infection status. This note was generated with [employer] dictation software. It may contain incorrect words, spelling, and punctuation that were not noted in checking the note before signing. He understands he is at risk for limb loss including amputations and further systemic illness.
[2022-04-30 11:00] VITALS: BP 128/61; PULSE 92; RESP 18; TEMP 36.7; BMI 35.6
--- NOTE | 2022-04-30 11:51 | PN.PCM_ITS ---
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 Patient has significant medical history including diabetes, hypertension, coronary artery disease, anemia, aortic martinez artery bypass grafting. Patient underwent previous surgical debridement of the wound with Dr. Gerber on 04/28/2021. He was previously progressing well with the wound healing center under comprehensive management and even underwent serial applications of advanced wound healing product, epi fix. After his last visit he refused total contact and return to work. He denies systemic illness such as fever, chill, nausea, vomiting. He denies odor redness or streaking. He is in the process of getting a new job task which will require less walking and standing. Progress of Wound: improving Objective Data Objective Data Vital Signs: Vital Signs Temp Pulse Resp BP O2 Del Method 98.1 F 92 18 128/61 H Room Air 04/30/22 11:00 04/30/22 11:00 04/30/22 11:00 04/30/22 11:00 04/16/22 10:39 Oxygen Delivery Method Room Air Weight: 122.47 kg Body Mass Index (BMI) 35.6 Physical Exam Narrative Skin Wound Narrative: Ulcer with subcutaneous tissue exposed and decreased depth. No necrosis, purulence, erythema streaking or odor. Adjacent skin is hairless and atrophic. no necrosis or purulence or streaking Edema noted to the left lower extremity moderate (increased) VASC Pulses are palpable 2 out of 4. Capillary refill time is less than 2 seconds to digits MSK Muscle strength 5 out of 5 for all pedal groups NEURO Minor decrease in epicritic sensation noted. Patient also noted to be hypersensitive Debridement Note Debridement Note Wound debrided: left foot Wound Grade/Stage: 3 Type of Debridement: Excisional debridement Anesthesia Used: 4% Lidocaine Solution Depth: in the subcutaneous layer Percentage of wound debrided: 100 Instrument Used: #15 blade Tissue Removed: fibrous, devitalized subcutaneous, biofilm, slough Severity: Fat Layer Exposed Amount of bleeding with debridement: Mild Bleeding Controlled with: Pressure Patient tolerated procedure: Patient tolerated procedure well Post-Debridement Measurements and Additional Note: Post-Debridement Measurements/Treatment WC - Nurse 1 - General Ulcer Assessment Start: 04/16/22 10:37 Freq: Status: Active Protocol: WC.LOWEXT Activity Type Activity Date Activity User E-sign Co-sign Detail Recorded Client Recorded Date Recorded By Document 04/16/22 10:39 [facility] [id number] 04/16/22 10:44 [facility] Document 04/30/22 11:00 DL [id number] 04/30/22 11:04 DL 04/16/22 04/30/22 10:39 11:00 - Today's Visit Information Type of service Follow-up Visit Follow-up Visit (Physician/CRIME SCENE TECHNICIAN (Physician/CRIME SCENE TECHNICIAN ) ) Arrival Mode Ambulatory Ambulatory Transfer Assistance None None Patient Identification Verified (Name & Yes Yes ) Patient Requires Transmission-Based No No Precautions Safety Precautions NA Height and Weight Body Mass Index (BMI) 35.6 35.6 BMI Classification Obese Obese Vital Signs Temperature (97.8 F-99.1 F) 98 F 98.1 F Temperature Source Temporal Temporal Pulse Rate (60-100) 67 92 Pulse Location Monitor Monitor Respiratory Rate (12-18) 16 18 Respiratory rate source Observation Observation Oxygen Delivery Method Room Air Blood Pressure (90/60-120/80) 128/67 H 128/61 H Blood Pressure Mean (mm Hg) 87 83 Source Monitor Monitor Position Sitting Blood Pressure Location Left Arm History Since Last Visit- (Skip if this is Patient's initial visit) Have you changed medications since your No No last visit? Any new allergies or adverse reactions No No Had a fall/change in ADL's that may No No increase risk of falls Signs or symptoms of abuse and/or No No neglect since last visit Have you been in the hospital since your No No last visit? Has dressing in place as prescribed Yes Yes Has compression in place as prescribed N/A N/A Has offloadiing in place as prescribed No Yes Experienced any changes in pain level or No No management Left Footwear Regular Shoe Regular Shoe Right Footwear Regular Shoe Regular Shoe Pain Scale: 0-10 Numeric Is Patient Pain Free? Yes Yes - Nurse 1 - General Ulcer Measurement Start: 04/16/22 10:37 Freq: Status: Active Protocol: Activity Type Activity Date Activity User E-sign Co-sign Detail Recorded Client Recorded Date Recorded By Document 04/16/22 10:39 [facility] [id number] 04/16/22 10:44 [facility] Document 04/30/22 11:00 DL [id number] 04/30/22 11:04 DL 04/16/22 04/30/22 10:39 11:00 Wound Center Nurse 1 #1 Left Lat Foot Post Op -Combined with other wound No -Current Size (cm) - Length 0.4 0.1 -Current Size (cm) - Width 0.1 0.1 -Current Size (cm) - Depth 0.3 0.1 -Total Square Cm 0.04 0.01 -Date of Last Picture (Recall this 04/16/22 field) -Photo Taken No No -Epithelialization None Present -Tunneling No -Undermining/Tunneling No -Circular Undermining No -Exudate Amt Small None Present -Exudate Type Serous -Wound Margin Distinct, Thickened Outline Attached -Granulation Amt Large (67-100%) Large (67-100%) -Granulation Quality [place] Pale -Slough/Fibrin No -Necrosis Amt None Present (0 None Present (0 %) %) -Structure Exposed N/A -Texture (Anna-wound Skin Appearance) Assessed,Callus Scarring ,Scarring -Moisture (Anna-wound Skin Appearance) Assessed, Dry/Scaly Maceration -Color (Anna-wound Skin Appearance) Assessed No Abnormality -Temperature (Anna-wound Skin No Abnormality No Abnormality Appearance) (Pt Warm) (Pt Warm) -Tenderness on Palpation (Anna-wound No No Skin Appearance) -Ulcer Cleansing Rinsed/ Rinsed/ Irrigated with Irrigated with Saline Saline -Foul Odor after Cleansing No No -Anesthetic Used 5% Lidocaine 4% Lidocaine Gel Solution WC - Nurse 2 - General Ulcer CM Notes Start: 04/16/22 10:37 Freq: Status: Active Protocol: Activity Type Activity Date Activity User E-sign Co-sign Detail Recorded Client Recorded Date Recorded By Document 04/16/22 10:57 [id number] 04/16/22 10:59 Document 04/30/22 11:38 PL [id number] 04/30/22 11:38 PL 04/16/22 04/30/22 10:57 11:38 Wound Center Nurse 2 #1 Left Lat Foot Post Op -Time 10:58 11:24 -Correct Patient Yes Yes -Correct Side, Site, Position Yes Yes -Correct Procedure Yes Yes -Procedure Performed Yes Yes -Type of Procedure Debridement Debridement -Clinical Debridement Subcutaneous Subcutaneous -Tissue Removed Subcutaneous Subcutaneous -Post Debridement (cm) - Length 0.6 0.1 -Post Debridement (cm) - Width 0.1 0.1 -Post Debridement (cm) - Depth 0.1 0.1 -Total Square (Post) (cm) 0.06 0.01 -Area of Debridement (cm) - Length 0.6 0.1 -Area of Debridement (cm) - Width 0.1 0.1 -Total Square (Area) (cm) 0.06 0.01 -Tunneling No No -Undermining/Tunneling No No -Circular Undermining No No -Wound/Ulcer Outcome Not Healed Not Healed -Ulcer Cleansing Rinsed/ Irrigated with Saline -Foul Odor after Cleansing No -Bioengineered Tissue No No -Bleeding Controlled with Pressure Pressure -Treatment Response Procedure Procedure Tolerated Well Tolerated Well -Offloading No -Debridement - Subq, 1st 20sq cm Yes Yes Pain Scale: 0-10 Numeric Is Patient Pain Free? Yes Yes - Nurse 3 - General Ulcer D/C NN Start: 04/16/22 10:37 Freq: Status: Active Protocol: Activity Type Activity Date Activity User E-sign Co-sign Detail Recorded Client Recorded Date Recorded By Document 04/16/22 11:14 RB [id number] 04/16/22 11:15 RB Document 04/30/22 11:35 DL [id number] 04/30/22 11:35 DL 04/16/22 04/30/22 11:14 11:35 Wound Care Nurse 3 #1 Left Lat Foot Post Op -Ulcer Cleansing Rinsed/ Rinsed/ Irrigated with Irrigated with Saline Saline -Foul Odor after Cleansing No -Primary Dressing Applied C Hydrogel ($) -Other Dressing hydrogel -Primary Dressing Covered/Secured with Dry Gauze, Dry Gauze, Secured with Secured with Tape Tape Treatment Response Procedure Procedure Tolerated Well Tolerated Well Pain Scale: 0-10 Numeric Is Patient Pain Free? 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 I reviewed his case via chart review and this included his diagnostic data. Debridement was performed as noted in the clinical panel. The purpose of the debridement was reviewed in detail again today. Dressing recommendations: hydrogel and secondary gauze dressing; provided today He completed a full course of advanced wound product epi fix previously. He has an extensive history of recurrent infections including osteomyelitis. He has been previously managed by infectious disease. In the recent setting he has increased inflammation which may be consistent with cellulitis versus recent increase in activity generalized inflammatory condition. Wound cultures were obtained including aerobic, anaerobic, MRSA PCR. Also prescribed Augmentin 500 mg twice daily and this may be updated as his culture results come back. It is noted he did have a prior GFR of 31 and therefore the dosing was adjusted. To follow-up with infectious disease as scheduled. He completed his course of oral antibiotics and this did temporarily improve his foot. He defers amputation option because he is not able to take off work. His new work task plan is noted and anticipated start date is within the next month. Patient is noted to have offloaded surgical shoe and wheelchair or crutches for offloading. Offloading Plastizote liners with pocket cut out was fabricated previously. Compliance encouraged. I advised him to use 2 crutches a walker or knee roller to completely keep pressure off of this ulcer. Routinely grazing the foot on the ground with the use of one crutch is probably not adequate. I does note he has not been able to be completely compliant due to his work demands. He understands this will compromise his ability to heal his wound and may even prevent complete wound healing. He was provided with another order to get a cam walker boot. It is noted that he did not obtain this the last time this was provided. Patient is also noted to have vascular studies done on 04/29/2021 demonstrating triphasic waveforms to PT and DP bilaterally with mild degree of large vessel disease despite noncompressible vessels. Right TBI was 0.78 and left TBI was 0.47 possibly consistent with small vessel disease. Vascular surgery referral w as previously provided. Discussed importance of smoking cessation, blood sugar control, weight management, offloading, proper nutrition, infection control and hygiene to optimize healing potential. Tubigrip was applied. 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 Discussed trying to elevate as much as possible. All questions answered. Reviewed concerning signs and symptoms to watch out for and to contact office if any of these present or go to the emergency room. To follow-up with the wound healing center in 1 week. He is at significant risk of amputation and limb loss due to his uncontrolled diabetes and bone infection status. This note was generated with [employer] dictation software. It may contain incorrect words, spelling, and punctuation that were not noted in checking the note before signing. He understands he is at risk for limb loss including amputations and further systemic illness.
== END 2022-05-01 23:59 | disposition home or self-care (01) ==
LOC: WC 11:00
PROVIDERS: PCP Physician Assistant Medical; Referring Provider Hospitalist; Visit Provider Podiatrist
DX: E11.621 Type 2 diabetes mellitus with foot ulcer (principal); E11.52 Type 2 diabetes mellitus with diabetic peripheral angiopathy with gangrene; A48.0 Gas gangrene; L97.522 Non-pressure chronic ulcer of other part of left foot with fat layer exposed; M86.9 Osteomyelitis, unspecified; E11.42 Type 2 diabetes mellitus with diabetic polyneuropathy; L03.116 Cellulitis of left lower limb; I10 Essential (primary) hypertension; M79.672 Pain in left foot; D64.9 Anemia, unspecified; E66.9 Obesity, unspecified; I25.10 Atherosclerotic heart disease of native coronary artery without angina pectoris; Z68.35 Body mass index [BMI] 35.0-35.9, adult
CPT/HCPCS: 11042

== ENCOUNTER 2022-05-14 10:52 | Outpatient (RCR) | payer OTHER, MEDICAID, SELFPAY ==
[2022-05-02 00:25] VITALS: BP 128/61; PULSE 92; RESP 18; TEMP 36.7; BMI 35.6
[2022-05-14 11:09] VITALS: BP 134/61; PULSE 89; RESP 20; TEMP 36.3; BMI 35.6
--- NOTE | 2022-05-14 19:41 | PCM.WC.PN ---
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 Patient has significant medical history including diabetes, hypertension, coronary artery disease, anemia, aortic martinez artery bypass grafting. Patient underwent previous surgical debridement of the wound with Dr. Gerber on 04/28/2021. He was previously progressing well with the wound healing center under comprehensive management and even underwent serial applications of advanced wound healing product, epi fix. After his last visit he refused total contact and return to work. He denies systemic illness such as fever, chill, nausea, vomiting. He denies odor redness or streaking. He is still in the process of getting a new job task which will require less walking and standing. He changes the dressing as advised. Objective Data Objective Data Vital Signs: Vital Signs Temp Pulse Resp BP 97.4 F L 89 20 H 134/61 H 05/14/22 11:09 05/14/22 11:09 05/14/22 11:09 05/14/22 11:09 Weight: 122.47 kg Body Mass Index (BMI) 35.6 Physical Exam Narrative Skin Wound Narrative: Ulcer with subcutaneous tissue exposed and decreased depth. No necrosis, purulence, erythema streaking or odor. Adjacent skin is hairless and atrophic. no necrosis or purulence or streaking. decreased size noted Edema noted to the left lower extremity moderate (increased) VASC Pulses are palpable 2 out of 4. Capillary refill time is less than 2 seconds to digits MSK Muscle strength 5 out of 5 for all pedal groups NEURO Minor decrease in epicritic sensation noted. Patient also noted to be hypersensitive Debridement Note Debridement Note Wound debrided: left foot Wound Grade/Stage: 3 Type of Debridement: Selective debridement Anesthesia Used: 4% Lidocaine Solution Depth: in the subcutaneous layer Percentage of wound debrided: 100 Instrument Used: #15 blade Tissue Removed: fibrous, devitalized subcutaneous, biofilm, slough Severity: Fat Layer Exposed Amount of bleeding with debridement: Mild Bleeding Controlled with: Pressure Patient tolerated procedure: Patient tolerated procedure well Post-Debridement Measurements and Additional Note: Post-Debridement Measurements/Treatment MARISSA - Nurse 1 - General Ulcer Assessment Start: 05/14/22 11:08 Freq: Status: Active Protocol: MARILYN Activity Type Activity Date Activity User E-sign Co-sign Detail Recorded Client Recorded Date Recorded By Document 05/14/22 11:09 [id number] 05/14/22 11:14 05/14/22 11:09 WC - Today's Visit Information Type of service Follow-up Visit (Physician/SECTION LEADER ) Arrival Mode Ambulatory Transfer Assistance None Patient Identification Verified (Name & Yes ) Patient Requires Transmission-Based No Precautions Height and Weight Body Mass Index (BMI) 35.6 BMI Classification Obese Vital Signs Temperature (97.8 F-99.1 F) 97.4 F L Temperature Source Temporal Pulse Rate (60-100) 89 Pulse Location Monitor Respiratory Rate (12-18) 20 H Respiratory rate source Observation Blood Pressure (90/60-120/80) 134/61 H Blood Pressure Mean (mm Hg) 85 Source Monitor History Since Last Visit- (Skip if this is Patient's initial visit) Have you changed medications since your No last visit? Any new allergies or adverse reactions No Had a fall/change in ADL's that may No increase risk of falls Signs or symptoms of abuse and/or No neglect since last visit Have you been in the hospital since your No last visit? Has dressing in place as prescribed Yes Has compression in place as prescribed N/A Has offloadiing in place as prescribed Yes Experienced any changes in pain level or No management Left Footwear Regular Shoe Right Footwear Regular Shoe Pain Scale: 0-10 Numeric Is Patient Pain Free? Yes - Nurse 1 - General Ulcer Measurement Start: 05/14/22 11:08 Freq: Status: Active Protocol: Activity Type Activity Date Activity User E-sign Co-sign Detail Recorded Client Recorded Date Recorded By Document 05/14/22 11:09 [id number] 05/14/22 11:14 05/14/22 11:09 Wound Center Nurse 1 #1 Left Lat Foot Post Op -Current Size (cm) - Length 0 -Current Size (cm) - Width 0 -Total Square Cm 0 -Photo Taken Yes -Exudate Amt None Present -Wound Margin Thickened -Granulation Amt Large (67-100%) -Granulation Quality Pale,[place] -Necrosis Amt Small (1-33%) -Structure Exposed N/A -Texture (Anna-wound Skin Appearance) Scarring -Moisture (Anna-wound Skin Appearance) Dry/Scaly -Color (Anna-wound Skin Appearance) Assessed -Temperature (Anna-wound Skin No Abnormality Appearance) (Pt Warm) -Ulcer Cleansing Rinsed/ Irrigated with Saline -Foul Odor after Cleansing No -Anesthetic Used 5% Lidocaine Gel - Nurse 2 - General Ulcer CM Notes Start: 05/14/22 11:08 Freq: Status: Active Protocol: Activity Type Activity Date Activity User E-sign Co-sign Detail Recorded Client Recorded Date Recorded By Document 05/14/22 11:40 [id number] 05/14/22 11:44 05/14/22 11:40 Wound Center Nurse 2 -Time 11:42 -Correct Patient Yes -Correct Side, Site, Position Yes -Correct Procedure Yes -Procedure Performed Yes -Type of Procedure Debridement -Clinical Debridement Epidermis / Dermis -Tissue Removed Epidermis, Subcutaneous -Post Debridement (cm) - Length 0.1 -Post Debridement (cm) - Width 0.2 -Post Debridement (cm) - Depth 0.1 -Total Square (Post) (cm) 0.02 -Area of Debridement (cm) - Length 0.1 -Area of Debridement (cm) - Width 0.2 -Total Square (Area) (cm) 0.02 -Tunneling No -Undermining/Tunneling No -Circular Undermining No -Wound/Ulcer Outcome Not Healed -Ulcer Cleansing Rinsed/ Irrigated with Saline -Foul Odor after Cleansing No -Bioengineered Tissue No -Bleeding Controlled with Pressure -Treatment Response Procedure Tolerated Well -Offloading Yes -Type of Offloading Surgical Shoe -Debridement - Open, 1st 20sq cm Yes Pain Scale: 0-10 Numeric Is Patient Pain Free? Yes - Nurse 3 - General Ulcer D/C NN Start: 05/14/22 11:08 Freq: Status: Active Protocol: Activity Type Activity Date Activity User E-sign Co-sign Detail Recorded Client Recorded Date Recorded By Document 05/14/22 11:52 NORA [id number] 05/14/22 11:52 NORA 05/14/22 11:52 Wound Care Nurse 3 #1 Left Lat Foot Post Op -Ulcer Cleansing Rinsed/ Irrigated with Saline -Foul Odor after Cleansing No -Primary Dressing Covered/Secured with Dry Gauze, Secured with Tape Treatment Response Procedure Tolerated Well Pain Scale: 0-10 Numeric Is Patient Pain Free? 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 I reviewed his case via chart review and this included his diagnostic data. Debridement was performed as noted in the clinical panel. The purpose of the debridement was reviewed in detail again today. Dressing recommendations: hydrogel and secondary gauze dressing; provided today He completed a full course of advanced wound product epi fix previously. He has an extensive history of recurrent infections including osteomyelitis. He has been previously managed by infectious disease. In the recent setting he has increased inflammation which may be consistent with cellulitis versus recent increase in activity generalized inflammatory condition. Wound cultures were obtained including aerobic, anaerobic, MRSA PCR. Also prescribed Augmentin 500 mg twice daily and this may be updated as his culture results come back. It is noted he did have a prior GFR of 31 and therefore the dosing was adjusted. To follow-up with infectious disease as scheduled. He completed his course of oral antibiotics and this did temporarily improve his foot. He defers amputation option because he is not able to take off work. His new work task plan is noted and anticipated start date is within the next month or so. Patient is noted to have offloaded surgical shoe and wheelchair or crutches for offloading. Offloading Plastizote liners with pocket cut out was fabricated previously. Compliance encouraged. I advised him to use 2 crutches a walker or knee roller to completely keep pressure off of this ulcer. Routinely grazing the foot on the ground with the use of one crutch is probably not adequate. I does note he has not been able to be completely compliant due to his work demands. He understands this will compromise his ability to heal his wound and may even prevent complete wound healing. He was provided with another order to get a cam walker boot. It is noted that he did not obtain this the last time this was provided. Patient is also noted to have vascular studies done on 04/29/2021 demonstrating triphasic waveforms to PT and DP bilaterally with mild degree of large vessel disease despite noncompressible vessels. Right TBI was 0.78 and left TBI was 0.47 possibly consistent with small vessel disease. Vascular surgery referral was previously provided. Discussed importance of smoking cessation, blood sugar control, weight management, offloading, proper nutrition, infection control and hygiene to optimize healing potential. Tubigrip was applied. 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 Discussed trying to elevate as much as possible. All questions answered. Reviewed concerning signs and symptoms to watch out for and to contact office if any of these present or go to the emergency room. To follow-up with the wound healing center in 1 week. He is at significant risk of amputation and limb loss due to his uncontrolled diabetes and bone infection status. This note was generated with [employer] dictation software. It may contain incorrect words, spelling, and punctuation that were not noted in checking the note before signing. He understands he is at risk for limb loss including amputations and further systemic illness. 20 minutes was spent on this encounter. This included face to face and non face to face care including preparing for the visit, reviewing the history, performing the exam, counseling and providing education to the patient, family, or caregiver, ordering medications/test/ procedures if indicated as documented, communicating with other healthcare providers, documenting information in the medical record, interpreting / sharing this information when indicated as documented, and care coordination.
== END 2022-06-01 23:59 | disposition home or self-care (01) ==
LOC: WC 10:52
PROVIDERS: PCP Physician Assistant Medical; Referring Provider Hospitalist; Visit Provider Podiatrist
DX: E11.621 Type 2 diabetes mellitus with foot ulcer (principal); L97.522 Non-pressure chronic ulcer of other part of left foot with fat layer exposed; M86.9 Osteomyelitis, unspecified; E11.42 Type 2 diabetes mellitus with diabetic polyneuropathy; E11.59 Type 2 diabetes mellitus with other circulatory complications; I25.10 Atherosclerotic heart disease of native coronary artery without angina pectoris; E66.9 Obesity, unspecified; I10 Essential (primary) hypertension; Z68.35 Body mass index [BMI] 35.0-35.9, adult
CPT/HCPCS: 97597

== ENCOUNTER 2022-06-04 10:29 | Outpatient (RCR) | payer OTHER, MEDICAID, SELFPAY ==
[2022-06-02 00:20] VITALS: BP 134/61; PULSE 89; RESP 20; TEMP 36.3; BMI 35.6
[2022-06-04 10:56] VITALS: BP 147/76; PULSE 90; RESP 18; TEMP 36.8; BMI 35.6
--- NOTE | 2022-06-04 15:34 | PCM.WC.PN ---
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 Patient has significant medical history including diabetes, hypertension, coronary artery disease, anemia, aortic martinez artery bypass grafting. Patient underwent previous surgical debridement of the wound with Dr. Gerber on 04/28/2021. He was previously progressing well with the wound healing center under comprehensive management and even underwent serial applications of advanced wound healing product, epi fix. After his last visit he refused total contact and return to work. He denies systemic illness such as fever, chill, nausea, vomiting. He denies odor redness or streaking. He is still in the process of getting a new job task which will require less walking and standing. He changes the dressing as advised. He denies drainage and thinks this site has healed. Progress of Wound: healed Objective Data Objective Data Vital Signs: Vital Signs Temp Pulse Resp BP 98.3 F 90 18 147/76 H 06/04/22 10:56 06/04/22 10:56 06/04/22 10:56 06/04/22 10:56 Weight: 122.47 kg Body Mass Index (BMI) 35.6 Physical Exam Narrative Skin Wound Narrative:healed with full epithelialization. Adjacent skin is hairless and atrophic. no necrosis or purulence or streaking. Edema noted to the left lower extremity moderate (increased) VASC Pulses are palpable 2 out of 4. Capillary refill time is less than 2 seconds to digits MSK Muscle strength 5 out of 5 for all pedal groups NEURO Minor decrease in epicritic sensation noted. Patient also noted to be hypersensitive Debridement Note Debridement Note Post-Debridement Measurements and Additional Note: Post-Debridement Measurements/Treatment - Nurse 1 - General Ulcer Assessment Start: 06/04/22 10:52 Freq: Status: Active Protocol: MARILYN Activity Type Activity Date Activity User E-sign Co-sign Detail Recorded Client Recorded Date Recorded By Document 06/04/22 10:56 BRANDON [id number] 06/04/22 11:02 BRANDON 06/04/22 10:56 - Today's Visit Information Type of service Follow-up Visit (Physician/RANGER AIDE ) Arrival Mode Ambulatory Transfer Assistance None Patient Identification Verified (Name & Yes ) Patient Requires Transmission-Based No Precautions Height and Weight Body Mass Index (BMI) 35.6 BMI Classification Obese Vital Signs Temperature (97.8 F-99.1 F) 98.3 F Temperature Source Temporal Pulse Rate (60-100) 90 Pulse Location Monitor Respiratory Rate (12-18) 18 Respiratory rate source Observation Blood Pressure (90/60-120/80) 147/76 H Blood Pressure Mean (mm Hg) 99 Source Monitor Position Semi-Fowlers Blood Pressure Location Left Arm History Since Last Visit- (Skip if this is Patient's initial visit) Have you changed medications since your No last visit? Any new allergies or adverse reactions No Had a fall/change in ADL's that may No increase risk of falls Signs or symptoms of abuse and/or No neglect since last visit Have you been in the hospital since your No last visit? Has dressing in place as prescribed Yes Has compression in place as prescribed No Has offloadiing in place as prescribed No Experienced any changes in pain level or No management Pain Scale: 0-10 Numeric Is Patient Pain Free? Yes WC - Nurse 1 - General Ulcer Measurement Start: 06/04/22 10:52 Freq: Status: Active Protocol: Activity Type Activity Date Activity User E-sign Co-sign Detail Recorded Client Recorded Date Recorded By Document 06/04/22 10:56 [id number] 06/04/22 11:02 RB 06/04/22 10:56 Wound Center Nurse 1 #1 Left Lat Foot Post Op -Combined with other wound No -Current Size (cm) - Length 0.1 -Current Size (cm) - Width 0.1 -Current Size (cm) - Depth 0.1 -Total Square Cm 0.01 -Photo Taken Yes -Tunneling No -Undermining/Tunneling No -Circular Undermining No -Exudate Amt Medium -Exudate Type Serosanguineous -Wound Margin Distinct, Outline Attached -Granulation Amt Medium (34-66%) -Granulation Quality Lan[place] -Slough/Fibrin Yes -Necrosis Amt Small (1-33%) -Necrotic Tissue Type Adherent Slough -Structure Exposed N/A -Texture (Anna-wound Skin Appearance) Assessed,Callus -Moisture (Anna-wound Skin Appearance) Assessed -Color (Anna-wound Skin Appearance) Assessed -Temperature (Anna-wound Skin No Abnormality Appearance) (Pt Warm) -Tenderness on Palpation (Anna-wound No Skin Appearance) -Ulcer Cleansing Wound Cleanser -Foul Odor after Cleansing No -Anesthetic Used 5% Lidocaine Gel - Nurse 2 - General Ulcer CM Notes Start: 06/04/22 10:52 Freq: Status: Active Protocol: Activity Type Activity Date Activity User E-sign Co-sign Detail Recorded Client Recorded Date Recorded By Document 06/04/22 11:07 GABBI [id number] 06/04/22 11:08 06/04/22 11:07 Wound Center Nurse 2 -Correct Patient No -Correct Side, Site, Position No -Correct Procedure No -Procedure Performed No -Post Debridement (cm) - Length 0 -Post Debridement (cm) - Width 0 -Post Debridement (cm) - Depth 0 -Total Square (Post) (cm) 0 -Area of Debridement (cm) - Length 0 -Area of Debridement (cm) - Width 0 -Total Square (Area) (cm) 0 -Wound/Ulcer Outcome Healed- Epithelialized Pain Scale: 0-10 Numeric Is Patient Pain Free? Yes - Nurse 3 - General Ulcer D/C NN Start: 06/04/22 10:52 Freq: Status: Active Protocol: Activity Type Activity Date Activity User E-sign Co-sign Detail Recorded Client Recorded Date Recorded By Document 06/04/22 11:08 GABBI [id number] 06/04/22 11:08 06/04/22 11:08 Is Patient Pain Free? 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 I reviewed his case today. Debridement was not performed due to healed ulcer status. Dressing recommendations: discontinue tue to healed status He completed a full course of advanced wound product epi fix previously. He has an extensive history of recurrent infections including osteomyelitis. He has been previously managed by infectious disease. He does not demonstrate local or systemic signs of illness today. Patient is noted to have offloaded surgical shoe and wheelchair or crutches for offloading. Offloading Plastizote liners with pocket cut out was fabricated previously. ok to transition to extra depth diabetic shoe over the next month. Patient is also noted to have vascular studies done on 04/29/2021 demonstrating triphasic waveforms to PT and DP bilaterally with mild degree of large vessel disease despite noncompressible vessels. Right TBI was 0.78 and left TBI was 0.47 possibly consistent with small vessel disease. Vascular surgery referral was previously provided. Discussed importance of smoking cessation, blood sugar control, weight management, offloading, proper nutrition, infection control and hygiene to prevent recurrent ulcer formationl. Tubigrip was applied. ok to continue. He will be discharged from the wound center at this time. [facility] for [facility] within the next month or sooner if needed. This note was generated with [employer] dictation software. It may contain incorrect words, spelling, and punctuation that were not noted in checking the note before signing. He understands he is at risk for limb loss including amputations and further systemic illness. 20 minutes was spent on this encounter. This included face to face and non face to face care including preparing for the visit, reviewing the history, performing the exam, counseling and providing education to the patient, family, or caregiver, ordering medications/test/ procedures if indicated as documented, communicating with other healthcare providers, documenting information in the medical record, interpreting / sharing this information when indicated as documented, and care coordination.
== END 2022-06-06 09:32 | disposition home or self-care (01) ==
LOC: WC 10:29
PROVIDERS: PCP Physician Assistant Medical; Referring Provider Hospitalist; Visit Provider Podiatrist
DX: Z09 Encounter for follow-up examination after completed treatment for conditions other than malignant neoplasm (principal); E11.42 Type 2 diabetes mellitus with diabetic polyneuropathy; I10 Essential (primary) hypertension; I25.10 Atherosclerotic heart disease of native coronary artery without angina pectoris
CPT/HCPCS: 99213; G0463

== ENCOUNTER 2024-07-01 16:11 | Inpatient (IN) | payer OTHER, MEDICAID, SELFPAY ==
[2024-07-01 16:13] VITALS: BP 115/60; PULSE 76; RESP 15; TEMP 36.2; O2SAT 99; BMI 36.6
--- NOTE | 2024-07-01 16:30 | EX.ED.DYSGE1 ---
HPI History of Present Illness Chief Complaint: Wound Detail of Chief Complaint: Right foot wound Informant: patient Narrative Narrative: Patient with a wound to his right foot that he has had for over 3 weeks. Patient states that he had new boots and he thought he was just breaking them in when he had some discomfort to the plantar aspect of his foot where he normally gets some calluses. When he took the insert out of his boot he noted there was a rock there palpable. The callus then broke open. He is complaining out of discomfort with walking. He denies fevers or chills or sweats. He has not seen anybody for this before. Patient is a diabetic. 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 Myocardial infarct Home Medications ?Medication ?Instructions ?Recorded ?Last Taken ?Type ascorbic acid (vitamin C) 500 mg 500 mg PO BID supplement 04/28/21 04/28/21 History tablet,extended release (Vitamin C ER) aspirin 81 mg tablet 81 mg PO DAILY heart health 04/28/21 04/28/21 History carvedilol 25 mg tablet 25 mg PO BID blood pressure 04/28/21 04/28/21 History metformin 1,000 mg tablet 1,000 mg PO BID diabetes 04/28/21 04/28/21 History rosuvastatin 20 mg tablet 40 mg PO QHS 12/29/21 Unknown History sacubitril 49 mg-valsartan 51 mg 1 tab PO BID 12/29/21 Unknown History tablet (Entresto) amlodipine 10 mg tablet 10 mg PO DAILY 07/01/24 Unknown History bumetanide 1 mg tablet 1 mg PO BID 07/01/24 Unknown History famotidine 20 mg tablet 20 mg PO BID 07/01/24 Unknown History ferrous sulfate 325 mg (65 mg 325 mg PO TID 07/01/24 Unknown History iron) tablet glimepiride 2 mg tablet 2 mg PO DAILY 07/01/24 Unknown History Allergy/AdvReac Type Severity Reaction Status Date / Time No Known Allergies Allergy Verified 07/01/24 16:13 Surgical History History of ear, nose, and throat (ENT) surgery History of quadruple bypass Social History Smoking Status: Never smoker alcohol intake: never ROS ROS ED Review of Systems ROS Unobtainable: other Constitutional Constitutional ED: Reports lethargy; Denies chills, fever(s), sweats or weight loss Eyes Eyes: Denies blurry vision, change in vision or diplopia ENT ENT ED: Denies rhinorrhea or sore throat Cardiovascular Cardiovascular: Denies chest pain, orthopnea or racing heartbeat Respiratory/Chest Respiratory/Chest: Denies cough, dyspnea, dyspnea on exertion, orthopnea or sputum Gastrointestinal Gastrointestinal: Denies abdominal pain, diarrhea, nausea or vomiting Genitourinary Genitourinary ED: Denies dysuria, hematuria or urinary frequency Musculoskeletal Musculoskeletal: Reports other Details: Right foot wound ; Denies arthralgias, back pain, myalgias or neck pain Integumentary Reports other; Denies abscess, Abrasions or rash Neurologic Neurologic: Denies headache(s) or weakness Psychiatric Psychiatric: Denies anxiety, depression or suicidal thoughts Endocrine Endocrinology: Denies polydipsia, polyphagia or polyuria Hematologic/Lymphatic Hematologic/Lymphatic: Denies easy bleeding, easy bruising or lymphadenopathy Allergic/Immunologic Allergic/Immunologic ED: Denies mouth swelling, tongue swelling or urticaria EXAM Physical Exam Const Vital Signs: 07/01/24 16:13 Temperature 97.2 F L Temperature Source Temporal Pulse Rate 76 Respiratory Rate 15 Blood Pressure 115/60 Blood Pressure Mean 78 Pulse Ox 99 Oxygen Delivery Method Room Air Positive well nourished and well developed General Appearance ED: well developed and NAD HEENT Reports TM's clear and moist mucous membranes normocephalic and atraumatic; Negative for trauma or tenderness Tympanic Membrane ED: Yes TM's clear Eyes PERRL and EOMs intact bilaterally General Eye ED: Negative for pale conjunctiva or scleral icterus Neck no lymphadenopathy, supple and no JVD General: Negative for tenderness Chest Wall inspection of chest normal and palpation of chest normal Chest: Negative for tenderness Resp normal respiratory effort and clear to auscultation bilaterally Effort and Inspection: Negative for respiratory distress or pain with movement Auscultation: Negative for rhonchi, wheezes or diminished lung sounds Cardio regular rate, regular rhythm, S1 normal heart sound, S2 normal heart sound and no murmurs Peripheral Pulses: pulses 2+ throughout GI normal to inspection, nondistended, normoactive bowel sounds, soft to palpation, non-tender, non-distended and no masses Back/Spine no CVA tenderness and no thoracic nor lumbar tenderness Extremity Extremity Narrative: Right foot-patient has a chronic appearing wound to the plantar aspect of the toe overlying the fourth and fifth MTP joints. Slightly tender to palpation. There is a foul odor. There is no purulent drainage noted. No gas in the tissues noted. No significant cellulitic changes. General Extremety ED: Negative for edema General Extremity: Negative for edema Neuro oriented x3, CN's II-XII intact bilaterally, no sensory deficits noted and gait normal Sensorium / Orientation: awake, alert, oriented to person, oriented to place and oriented to time Motor Exam: strength 5/5 throughout and strength abnormal Psych mental status grossly normal Skin no rashes or lesions noted and no wounds MDM MDM MDM Narrative Medical decision making narrative: Patient presents with a chronic wound to his right foot. He is a diabetic. He is also to have diarrhea for 3 days. Complains of pain to the foot. Wounds not healing. IV line established.. CBC with differential white count of 13.9 with hemoglobin 9.5 and platelet count of 302. Sed rate was elevated at 25. Chemistries unremarkable. BUN elevated 75 and creatinine 3.08. Glucose 129. Lactate was normal at 0.9 and C-reactive protein was elevated at 32.9. Three-view x-rays of the right foot obtained interpreted by myself as no evidence of fractures or gas within the tissues or evidence of osteomyelitis. Radiology in agreement. Patient was empirically started on Zosyn 4.5 g IV. I did obtain a wound culture of the foot. Case discussed with hospitalist will evaluate patient for admission Lab Data Attestation: I reviewed the patient's lab results. Labs: Laboratory Results - last 24 hr 07/01/24 16:52 WBC 13.9 H RBC 3.14 L Hgb 9.5 L Hct 28.9 L MCV 92.0 MCH 30.3 MCHC 32.9 RDW Std Deviation 40.3 RDW Coeff of Shant 11.9 Plt Count 302 MPV 9.8 Immature Gran % (Auto) 0.600 Neut % (Auto) 79.6 H Lymph % (Auto) 8.5 L [place] % (Auto) 9.2 Eos % (Auto) 2.0 Baso % (Auto) 0.1 Absolute Neuts (auto) 11.1 H Absolute Lymphs (auto) 1.18 Nucleated RBC % 0 ESR 25 H Sodium 134 L Potassium 4.9 Chloride 106 Carbon Dioxide 22.0 Anion Gap 6 BUN 75 H Creatinine 3.08 H Estim Creat Clear Calc 38.60 Est GFR (MDRD) Af Amer 27 L Est GFR (MDRD) Non-Af 23 L BUN/Creatinine Ratio 24.4 H Glucose 129 H Lactic Acid 0.9 Calcium 9.4 C-React Prot Ext Range 32.90 H Radiography Diagnostic Testing: Clinical Impression(s) from Imaging Studies Foot X-Ray 07/01/24 16:50 IMPRESSION: 1. No evidence fracture, malalignment or focal bony or joint space abnormality. Electronically Signed: Jay Soriano MD at 17:21 EDT , Three-view x-rays of the right foot obtained interpreted by myself as no evidence of fractures or gas within the tissues or foreign bodies or other acute abnormalities. Radiology in agreement. Discharge Plan Triage Chief Complaint: Wound ED Provider: Angel Hernandez Dx/Rx/DC Orders Clinical Impression: Wound of foot, Acute kidney injury, Leukocytosis, Diarrhea Prescriptions: No Action carvedilol 25 mg Tablet 25 mg PO BID metformin 1,000 mg Tablet 1,000 mg PO BID aspirin 81 mg Tablet 81 mg PO DAILY ascorbic acid (vitamin C) [Vitamin C] 500 mg Tablet Extended Release 500 mg PO BID rosuvastatin 20 mg tablet 40 mg PO QHS Entresto 49-51 mg tablet 1 tab PO BID glimepiride 2 mg tablet 2 mg PO DAILY famotidine 20 mg tablet 20 mg PO BID amlodipine 10 mg tablet 10 mg PO DAILY ferrous sulfate 325 mg (65 mg iron) tablet 325 mg PO TID bumetanide 1 mg tablet 1 mg PO BID Primary Care Provider: Karen Giang Referrals: Karen Giang PA [Primary Care Provider] - Print Language: Bengali Disposition Disposition: Acute Care [facility]
--- NOTE | 2024-07-01 16:50 | RAD_ITS ---
INDICATION: wound to plantar aspect EXAMINATION/TECHNIQUE: X-RAY - RIGHT XR Foot Min 3 Views 3 VIEWS COMPARISON: No relevant prior comparison study available FINDINGS: SOFT TISSUES: No soft tissue swelling or gas. No radiopaque foreign body. BONES/JOINTS: No acute fracture or subluxation.. Normal alignment. Preservation of the joint space.. No sclerotic or destructive changes observed. RAD/Foot min 3 Views IMPRESSION: 1. No evidence fracture, malalignment or focal bony or joint space abnormality. Electronically Signed: Jay Soriano MD at 17:21 EDT ,
[2024-07-01 17:09] LABS: Absolute Lymphocyte Count 1.18 X10^3/uL (0.83-4.51); Absolute Neutrophil Count 11.1 X10^3/uL (2.0-7.7); Basophil# 0.02 X10^3/uL; Basophil% 0.1 % (0-1); Eosinophil# 0.28 X10^3/uL; Hematocrit 28.9 % (40-54); Hemoglobin 9.5 g/dL (13.0-16.5); Lymphocyte # 1.18 X10^3/ul (0.83-4.51); Lymphocyte % 8.5 % (19-41); Mean Corp Hgb Conc 32.9 g/dL (32-36); Mean Corpuscular Hgb 30.3 pg (27.0-32.0); Mean Platelet Vol. 9.8 fl (6.2-12.0); Monocyte# 1.28 X10^3/uL; Monocyte% 9.2 % (0-10); NRBC Flagged by Analyzer 0 % (0-5); Neutrophil # 11.07 X10^3/uL (2.7-7.7); Neutrophil % 79.6 % (47-70); Platelet Count 302 K/mm3 (150-450); RBC Distribution Width CV 11.9 % (11.6-14.6); RBC Distribution Width SD 40.3 fl (35.1-43.9); Red Blood Count 3.14 M/mm3 (4.6-6.2); White Blood Count 13.9 K/mm3 (4.4-11.0)
[2024-07-01 17:20] LABS: Anion Gap 6 (5-15); BUN 75 mg/dL (7-18); BUN/Creat Ratio 24.4 RATIO (10-20); Calcium,Total 9.4 mg/dL (8.5-10.1); Chloride 106 mmol/L (98-107); Creatinine, Serum 3.08 mg/dL (0.70-1.30); EST Glomerular Filtration Rate 23 mL/min (>60); Erythrocyte Sedimentation Rate 25 mm/hr (0-20); Est Glom Filt Rate - Afr Amer 27 mL/min (>60); Glucose 129 mg/dL (74-106); Potassium 4.9 mmol/L (3.5-5.1); Sodium Level 134 mmol/L (136-145)
[2024-07-01 17:29] LABS: Lactic Acid 0.9 mmol/L (0.4-1.9)
[2024-07-01] MEDS: Piperacil/Tazobactam 4.5 GM in 0.9% Normal Saline (100mL MB+) 100 ML IV (17:50)
[2024-07-01 18:11] VITALS: BP 112/66; PULSE 73; RESP 18; O2SAT 98
[2024-07-01 18:32] VITALS: BP 112/66; PULSE 73; RESP 18; TEMP 37.1; O2SAT 98
--- NOTE | 2024-07-01 18:40 | HP.PCM.HOS_ITS ---
HPI - General General Date of Admission: 07/01/24 Date of Service: 07/01/24 Chief Complaint: Non healing right foot wound in a diabetic patient HPI Narrative GO VANESSA, is a 53-year-old male with a history of anxiety, diabetes, coronary artery disease with quadruple bypass, left foot osteomyelitis that is since resolved who presented to [facility] ED 07/01/2024 with a persistent right foot wound over 3 weeks. He had a rock in his boot that opened up a callus and he has had discomfort with walking since then. In the ED he was noted to have a white blood cell count of 13.9, CRP 32.9 and ESR 25. Foot x-ray unremarkable and lactic within normal limits. Vitally stable and afebrile. Does have creatinine of 3.08 and a BUN of 75 however no values for over 2 years unclear baseline. Given his foot wound and diabetes with slight elevation in ESR and CRP hospitalist contacted for admission. Patient evaluated with family member at bedside. Patient reports he has been having trouble with this wound for several weeks, significant other is often able to express martinez stuff from it however was unable to do so today given the persistent nonhealing nature of the wound with pain and drainage he presented to the ED. Has not had any problems with fevers but has had some loose stool over the past 3 days but reports it is low in volume and mostly notable as he is usually constipated. 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 Endorses no problem with eating and drinking, no changes in urination, no abdominal pain. No chest pain or shortness of breath. Denies any tobacco, alcohol, substance use [facility] Medical History Anxiety Alex's palsy Diabetes Diabetic foot ulcer Myocardial infarct Home Medications ?Medication ?Instructions ?Recorded ?Last Taken ?Type ascorbic acid (vitamin C) 500 mg 500 mg PO BID supplement 04/28/21 04/28/21 History tablet,extended release (Vitamin C ER) aspirin 81 mg tablet 81 mg PO DAILY heart health 04/28/21 04/28/21 History carvedilol 25 mg tablet 25 mg PO BID blood pressure 04/28/21 04/28/21 History metformin 1,000 mg tablet 1,000 mg PO BID diabetes 04/28/21 04/28/21 History rosuvastatin 20 mg tablet 40 mg PO QHS 12/29/21 Unknown History sacubitril 49 mg-valsartan 51 mg 1 tab PO BID 12/29/21 Unknown History tablet (Entresto) amlodipine 10 mg tablet 10 mg PO DAILY 07/01/24 Unknown History bumetanide 1 mg tablet 1 mg PO BID 07/01/24 Unknown History famotidine 20 mg tablet 20 mg PO BID 07/01/24 Unknown History ferrous sulfate 325 mg (65 mg 325 mg PO TID 07/01/24 Unknown History iron) tablet glimepiride 2 mg tablet 2 mg PO DAILY 07/01/24 Unknown History Allergy/AdvReac Type Severity Reaction Status Date / Time No Known Allergies Allergy Verified 07/01/24 16:13 Surgical History History of ear, nose, and throat (ENT) surgery History of quadruple bypass Social History Smoking Status: Never smoker alcohol intake: never ROS ROS Narrative General: Denies fever/chills HENT: Denies headache, denies stuffy nose, denies sore throat EYES: Denies changes in vision at this time, had some blurriness when his glucose dropped Resp: Denies cough, denies shortness of breath Cardiac: Denies chest pain GI: Denies abdominal pain, has had several loose stools over the past couple of days, denies nausea/vomiting : Denies changes in urination Extremity: Denies swelling MSK: Denies weakness Neuro: Denies any numbness/tingling Heme: Denies any bleeding or bruising Skin: Has then nonhealing wound on right foot Psychiatric: No complaints voiced Vital Signs Vital Signs Vital Signs: 07/01/24 16:13 07/01/24 18:11 07/01/24 18:32 Temperature 97.2 F L 98.7 F Temperature Source Temporal Pulse Rate 76 73 73 Respiratory Rate 15 18 18 Blood Pressure 115/60 112/66 112/66 Blood Pressure Mean 78 81 81 Pulse Ox 99 98 98 Oxygen Delivery Method Room Air Room Air Weight Weight: 126.1 kg Body Mass Index (BMI) 36.6 Physical Exam Narrative General: Alert, oriented, no apparent distress HEENT: Atraumatic, normocephalic Eyes: Anicteric, normal conjunctiva, extraocular movements grossly intact Neck: Supple Respiratory: Clear to auscultation bilaterally, normal respiratory effort Cardiovascular: Regular rate GI: Soft, without rebound, guarding, rigidity Extremities: No edema noted Musculoskeletal: Moving all extremities Neuro: No overt focal neurological deficits Skin: Patient with lesion on plantar surface of right foot at base of fourth and fifth metatarsals roughly quarter inch in diameter with serosanguineous drainage, does appear to have some erythema on the top of the foot corresponding to that area as well, has some pain on palpation, no purulence Psych: Cooperative Results Lab / Micro Data 07/01/24 16:52 07/01/24 16:52 Labs: Laboratory Results - last 24 hr 07/01/24 16:52: WBC 13.9 H, RBC 3.14 L, Hgb 9.5 L, Hct 28.9 L, MCV 92.0, MCH 30.3, MCHC 32.9, RDW Std Deviation 40.3, RDW Coeff of Shant 11.9, Plt Count 302, MPV 9.8, Immature Gran % (Auto) 0.600, Neut % (Auto) 79.6 H, Lymph % (Auto) 8.5 L, [place] % (Auto) 9.2, Eos % (Auto) 2.0, Baso % (Auto) 0.1, Absolute Neuts (auto) 11.1 H, Absolute Lymphs (auto) 1.18, Nucleated RBC % 0, ESR 25 H, Sodium 134 L, Potassium 4.9, Chloride 106, Carbon Dioxide 22.0, Anion Gap 6, BUN 75 H, C reatinine 3.08 H, Estim Creat Clear Calc 38.60, Est GFR (MDRD) Af Amer 27 L, Est GFR (MDRD) Non-Af 23 L, BUN/Creatinine Ratio 24.4 H, Glucose 129 H, Lactic Acid 0.9, Calcium 9.4, C-React Prot Ext Range 32.90 H Imaging Radiology Impression Foot X-Ray 07/01/24 16:50 IMPRESSION: 1. No evidence fracture, malalignment or focal bony or joint space abnormality. Electronically Signed: Jay Soriano MD at 17:21 EDT , Assessment & Plan Assessment/Plan (1) Wound of foot: PLAN: Plan # Nonhealing right plantar foot wound in a diabetic -Nonhealing wound draining serosanguineous fluid with pain at base of fourth and fifth metatarsal with some cellulitic changes on top of foot corresponding to this area -Xray without gas -Culture of fluids in ED -Continue IV Zosyn -Will consult podiatry -Repeat ESR and CRP in the a.m. -Pain control -PT consult in a.m. #VILMA vs CKD -BUN 75 with a creatinine of 3.08 on arrival to ED -Last values available in our system were from January 2022 and showed a BUN of 32 with a creatinine of 1.47, no values available in between so it is unclear if this is VILMA versus CKD versus VILMA on CKD -Given significant elevation in BUN and loose stools over a couple of days do suspect there could be component of dehydration, not having further profuse or watery diarrhea and sounds as though this was self-limited's do not think stool studies are necessary at this time unless diarrhea continues -Will give gentle IV fluids and hold diuretics and Entresto -Daily weights, I's and O's -Repeat in a.m., if this is chronic in nature will likely need follow-up with nephrology on outpatient basis # Diarrhea -Patient reports diarrhea after eating for several days and reports there was not a profuse amount but that it was soft and runny and this is abnormal for him as he usually has difficulty having bowel movements -If diarrhea persists can consider further workup with stool studies but not having any at this present moment in time -Gentle IVF as above # Chronic normocytic anemia -Hemoglobin 9.5, in 2021 was 9.9 and has been roughly in that range from previous draws as well -No evidence of active bleeding -Recommend following with primary care physician on outpatient basis #Type 2 diabetes mellitus -Patient monitors glucose and takes oral hypoglycemics -Had 2 episodes of low blood glucose over the past couple of days that were symptomatic -Hold oral hypoglycemics -Sliding scale insulin and glucose checks -Will check A1c in the a.m. 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 -Patient does note that he takes Entresto and a water pill but again said he is unaware if he has a history of heart failure -Will hold these as above and monitor daily weights and I's and O's -Does not appear to be fluid overloaded #HTN -Normotensive in the ED -Continue home coreg and amlodipine -Holding entresto and diuretics #GERD -Continue PPI #DVT ppx: lovenox subq Dee Romero MD Time spent in the patient's overall evaluation,decision-making process, review of diagnostic data, adjustment of management, discussion with other providers, nursing nursing and ancillary staff involved in patient's care documentation, 57 Minutes Charges/Coding Visit Charges Inpatient E&M: 01853 Init Hosp L2
[2024-07-01 19:51] VITALS: BMI 36.2
[2024-07-01 20:02] VITALS: BP 143/62; PULSE 77; RESP 18; TEMP 37.1; O2SAT 98
[2024-07-01] MEDS: 0.9% Normal Saline (1000mL) 1,000 ML 75 ML IV (20:05)
[2024-07-01 21:12] VITALS: BP 158/76; PULSE 78; RESP 18; TEMP 36.7; O2SAT 99
[2024-07-01] MEDS: Carvedilol 25 MG Tablet PO (21:28)
[2024-07-01] MEDS: Atorvastatin Calcium 80 MG Tablet PO (21:29)
--- NOTE | 2024-07-01 22:04 | PCM.CONS.GEN ---
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 Reviewed diagnostic data. There is noted plantar right forefoot wound, there was slight amount of purulent drainage and also noted to be some cellulitis to the forefoot. WBC elevated, xrays right foot without evidence of gas or osteomyelitis. Wound is chronic. Further evaluation is indicated so MRI right foot was ordered. A culture has been obtained and results are pending - added on MRSA PCR Patient is on Zosyn at this time Wound care: betadine gauze packing with overlying dry gauze, kerlix and santo dressing - change daily Patient is NPO after midnight at this time - may need to proceed with OR debridement - will await MRI for further evaluation, will re-evaluate patient in morning Weightbearing - no weightbearing right forefoot - ok to put weight on right heel for transitions only Patient had recent LE victorino doppler evaluation in [place] - will try to obtain results - at this time no evidence of acute ischemia to the right foot Podiatry will continue to follow, thank you for consultation HPI Consult Data Date of Consult: 07/01/24 HPI Narrative Reason for Consultation: Right foot wound with infection HPI Narrative: GO VANESSA, is a 53 M who presents with history of right foot wound since around May 2024 on the bottom of his right foot. He stepped on something in shoe and it caused a wound. He relates his has been doing dressing changes and has been putting topical antibiotic on it. He relates it is not healing, he has developed redness and swelling with some pain. He has been admitted for further management. He has hx of diabetes and other medical problems. He relates he just had a LE doppler in [place] and was told it was normal with good circulation. His WBC is elevated. He is resting comfortably in bed. [facility] Medical History Anxiety Alex's palsy Diabetes Diabetic foot ulcer Myocardial infarct Home Medications ?Medication ?Instructions ?Recorded ?Last Taken ?Type ascorbic acid (vitamin C) 500 mg 500 mg PO BID supplement 04/28/21 04/28/21 History tablet,extended release (Vitamin C ER) aspirin 81 mg tablet 81 mg PO DAILY heart health 04/28/21 04/28/21 History carvedilol 25 mg tablet 25 mg PO BID blood pressure 04/28/21 04/28/21 History metformin 1,000 mg tablet 1,000 mg PO BID diabetes 04/28/21 04/28/21 History rosuvastatin 20 mg tablet 40 mg PO QHS 12/29/21 Unknown History sacubitril 49 mg-valsartan 51 mg 1 tab PO BID 12/29/21 Unknown History tablet (Entresto) amlodipine 10 mg tablet 10 mg PO DAILY 07/01/24 Unknown History bumetanide 1 mg tablet 1 mg PO BID 07/01/24 Unknown History famotidine 20 mg tablet 20 mg PO BID 07/01/24 Unknown History ferrous sulfate 325 mg (65 mg 325 mg PO TID 07/01/24 Unknown History iron) tablet glimepiride 2 mg tablet 2 mg PO DAILY 07/01/24 Unknown History Allergy/AdvReac Type Severity Reaction Status Date / Time No Known Allergies Allergy Verified 07/01/24 16:13 Surgical History History of ear, nose, and throat (ENT) surgery History of quadruple bypass Social History Smoking Status: Never smoker alcohol intake: never Physical Exam Const alert, oriented x3 and no apparent distress Constitutional Narrative: Right foot with open wound of ~6mm x 6mm plantar lateral forefoot, margins are viable but there is some undermining of the margins, base appears to be down to fascia/muscle layer with some scant purulent drainage, no probe to bone, no visible abscess, no gangrene, no streaking but there is localized forefoot cellulitis, no blistering, no fluctuance, no crepitus, CFT < 3 seconds to all toes with no evidence of acute ischemia to the right foot, there is decreased sensation c/w peripheral neuropathy but he does have POP to the wound site, no evidence of charcot neuroarthropathy or compartment syndrome, and muscle strenght intact to major muscle groups of the foot and ankle. Lab / Micro Data 07/01/24 16:52 07/01/24 16:52 Labs: Laboratory Results - last 24 hr 07/01/24 16:52: WBC 13.9 H, RBC 3.14 L, Hgb 9.5 L, Hct 28.9 L, MCV 92.0, MCH 30.3, MCHC 32.9, RDW Std Deviation 40.3, RDW Coeff of Shant 11.9, Plt Count 302, MPV 9.8, Immature Gran % (Auto) 0.600, Neut % (Auto) 79.6 H, Lymph % (Auto) 8.5 L, [place] % (Auto) 9.2, Eos % (Auto) 2.0, Baso % (Auto) 0.1, Absolute Neuts (auto) 11.1 H, Absolute Lymphs (auto) 1.18, Nucleated RBC % 0, ESR 25 H, Sodium 134 L, Potassium 4.9, Chloride 106, Carbon Dioxide 22.0, Anion Gap 6, BUN 75 H, Creatinine 3.08 H, Estim Creat Clear Calc 38.60, Est GFR (MDRD) Af Amer 27 L, Est GFR (MDRD) Non-Af 23 L, BUN/Creatinine Ratio 24.4 H, Glucose 129 H, Lactic Acid 0.9, Calcium 9.4, C-React Prot Ext Range 32.90 H Imaging Radiology Impression Foot X-Ray 07/01/24 16:50 IMPRESSION: 1. No evidence fracture, malalignment or focal bony or joint space abnormality. Electronically Signed: Jay Soriano MD at 17:21 EDT ,
[2024-07-01 22:46] LABS: Bedside Glucose 79 mg/dL (74-106)
[2024-07-01 23:31] LABS: M R Staph aureus DNA By PCR Negative (Negative)
[2024-07-01 23:32] LABS: Probe Check PASS; Specimen Processing Control PASS; Staph aureus DNA By PCR NEGATIVE (Negative)
[2024-07-02] VITALS (7 sets, daily range): BP systolic 122–149; BP diastolic 59–78; PULSE 68–81; RESP 14–18; TEMP 36.6–37.3; O2SAT 96–98; BMI 36.3
[2024-07-02] MEDS: Piperacil/Tazobactam 3.375 GM in 0.9% Normal Saline (50mL MB+) 50 ML IV ×4 (00:03→21:32)
[2024-07-02 06:00] LABS: Bedside Glucose 95 mg/dL (74-106)
[2024-07-02] MEDS: oxyCODONE 5 MG Tablet PO ×4 (06:23→21:18)
[2024-07-02] MEDS: Acetaminophen 325 MG Tablet 650 MG PO ×2 (06:23→21:19)
[2024-07-02 07:18] LABS: Bedside Glucose 69 mg/dL (74-106)
[2024-07-02 07:19] LABS: Bedside Glucose 97 mg/dL (74-106)
[2024-07-02 07:20] LABS: Absolute Lymphocyte Count 1.33 X10^3/uL (0.83-4.51); Absolute Neutrophil Count 11.6 X10^3/uL (2.0-7.7); Basophil# 0.04 X10^3/uL; Basophil% 0.3 % (0-1); Eosinophil# 0.32 X10^3/uL; Eosinophils% 2.1 % (0-5); Hematocrit 26.9 % (40-54); Hemoglobin 8.9 g/dL (13.0-16.5); Lymphocyte # 1.33 X10^3/ul (0.83-4.51); Lymphocyte % 8.9 % (19-41); Mean Corp Hgb Conc 33.1 g/dL (32-36); Mean Corpuscular Volume 90.6 fL (80-94); Monocyte# 1.49 X10^3/uL; NRBC Flagged by Analyzer 0 % (0-5); Neutrophil # 11.61 X10^3/uL (2.7-7.7); Platelet Count 298 K/mm3 (150-450); RBC Distribution Width CV 11.8 % (11.6-14.6); RBC Distribution Width SD 39.1 fl (35.1-43.9); Red Blood Count 2.97 M/mm3 (4.6-6.2); White Blood Count 14.9 K/mm3 (4.4-11.0)
[2024-07-02 07:23] LABS: Erythrocyte Sedimentation Rate 34 mm/hr (0-20)
[2024-07-02 08:17] LABS: ALB/GLOB Ratio 0.7 RATIO (0.9-2.4); AST(SGOT) 10 U/L (15-37); Alanine Aminotransfer ALT/SGPT 16 U/L (16-61); Alkaline Phosphatase 97 U/L (45-117); Anion Gap 7 (5-15); BUN 62 mg/dL (7-18); BUN/Creat Ratio 21.9 RATIO (10-20); Calcium,Total 9.4 mg/dL (8.5-10.1); Chloride 110 mmol/L (98-107); Creatinine, Serum 2.83 mg/dL (0.70-1.30); EST Glomerular Filtration Rate 25 mL/min (>60); Est Glom Filt Rate - Afr Amer 30 mL/min (>60); Estimated Creatinine Clearance 41.73 ml/min; Globulin 4.4 g/dL (2.2-4.2); Glucose 71 mg/dL (74-106); Magnesium 2.2 mg/dL (1.6-2.6); Potassium 4.5 mmol/L (3.5-5.1); Protein, Total 7.4 g/dL (6.4-8.2); Sodium Level 137 mmol/L (136-145)
--- NOTE | 2024-07-02 08:34 | PCM.PROGNOTE ---
Subjective Subjective Patient was seen this morning for follow up on right foot. He is resting comfortably in bed watching tv, denies f/c/n/v and has no complaints at this time. Objective Data Objective Data Vital Signs: Vital Signs Temp Pulse Resp BP Pulse Ox O2 Del Method 98.2 F 73 18 136/71 H 98 Room Air 07/02/24 06:17 07/02/24 08:12 07/02/24 06:17 07/02/24 06:17 07/02/24 08:12 07/02/24 08:12 Oxygen Delivery Method Room Air Weight: 124.5 kg Body Mass Index (BMI) 36.3 Intake & Output: Intake and Output for Last 24 Hours 06/30/24 07/01/24 07/02/24 23:59 23:59 23:59 Intake Total 100 / 900 1831.25 / 1831.25 Balance 100 / 900 1831.25 / 1831.25 Lab / Micro Data 07/02/24 06:32 07/02/24 06:32 Labs: Laboratory Results - last 24 hr 07/01/24 16:52: WBC 13.9 H, RBC 3.14 L, Hgb 9.5 L, Hct 28.9 L, MCV 92.0, MCH 30.3, MCHC 32.9, RDW Std Deviation 40.3, RDW Coeff of Shant 11.9, Plt Count 302, MPV 9.8, Immature Gran % (Auto) 0.600, Neut % (Auto) 79.6 H, Lymph % (Auto) 8.5 L, [place] % (Auto) 9.2, Eos % (Auto) 2.0, Baso % (Auto) 0.1, Absolute Neuts (auto) 11.1 H, Absolute Lymphs (auto) 1.18, Nucleated RBC % 0, ESR 25 H, Sodium 134 L, Potassium 4.9, Chloride 106, Carbon Dioxide 22.0, Anion Gap 6, BUN 75 H, Creatinine 3.08 H, Estim Creat Clear Calc 38.60, Est GFR (MDRD) Af Amer 27 L, Est GFR (MDRD) Non-Af 23 L, BUN/Creatinine Ratio 24.4 H, Glucose 129 H, Lactic Acid 0.9, Calcium 9.4, C-React Prot Ext Range 32.90 H 07/01/24 17:07: S.aureus Protein A PCR NEGATIVE, MRSA (PCR) Negative 07/01/24 21:10: POC Glucose 79 07/02/24 01:44: POC Glucose 95 07/02/24 06:27: POC Glucose 69 L 07/02/24 06:32: WBC 14.9 H, RBC 2.97 L, Hgb 8.9 L, Hct 26.9 L, MCV 90.6, MCH 30.0, MCHC 33.1, RDW Std Deviation 39.1, RDW Coeff of Shant 11.8, Plt Count 298, MPV 10.0, Immature Gran % (Auto) 0.700, Neut % (Auto) 78.0 H, Lymph % (Auto) 8.9 L, [place] % (Auto) 10.0, Eos % (Auto) 2.1, Baso % (Auto) 0.3, Absolute Neuts (auto) 11.6 H, Absolute Lymphs (auto) 1.33, Nucleated RBC % 0, ESR 34 H, Sodium 137, Potassium 4.5, Chloride 110 H, Carbon Dioxide 20.0 L, Anion Gap 7, BUN 62 H, Creatinine 2.83 H, Estim Creat Clear Calc 41.73, Est GFR (MDRD) Af Amer 30 L, Est GFR (MDRD) Non-Af 25 L, BUN/Creatinine Ratio 21.9 H, Glucose 71 L, Calcium 9.4, Magnesium 2.2, Total Bilirubin 0.40, AST 10 L, ALT 16, Alkaline Phosphatase 97, C-React Prot Ext Range 44.00 H, Total Protein 7.4, Albumin 3.0 L, Globulin 4.4 H, Albumin/Globulin Ratio 0.7 L 07/02/24 06:59: POC Glucose 97 Radiography Diagnostic Testing: Radiology Impression Foot X-Ray 07/01/24 16:50 IMPRESSION: 1. No evidence fracture, malalignment or focal bony or joint space abnormality. Electronically Signed: Jay Soriano MD at 17:21 EDT , Physical Exam Const alert, oriented x3 and no apparent distress Constitutional Narrative: Right foot with open wound of plantar lateral forefoot, margins are viable but there is some undermining of the margins, base down to fascia/muscle layer with some purulent drainage distal lateral aspect today, no probe to bone, no visible abscess, no gangrene, no streaking but there is localized forefoot cellulitis - cellulitis does appear improved today, no blistering, no fluctuance, no crepitus, CFT < 3 seconds to all toes with no evidence of acute ischemia to the right foot, there is decreased sensation c/w peripheral neuropathy but he does have POP to the wound site - appears less today, no evidence of charcot neuroarthropathy or compartment syndrome Assessment & Plan Assessment/Plan (1) Cellulitis of right lower limb: (2) Diabetic foot infection: (3) Type 2 diabetes mellitus with foot ulcer: QUALIFIERS: 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 Reviewed diagnostic data. There is noted plantar right forefoot wound, there was again noted to be some purulent drainage and also noted to be some cellulitis to the forefoot but the cellulitis does appear improved. WBC remains elevated, xrays right foot without evidence of gas or osteomyelitis. Wound is chronic. Further evaluation is indicated so MRI right foot was ordered and pending at this time. A culture has been obtained and results are pending - MRSA PCR negative Patient is on Zosyn at this time Wound care: betadine gauze packing with overlying dry gauze, kerlix and santo dressing - change daily May need to proceed with OR debridement - will continue to monitor and await MRI for further evaluation at this time Weightbearing - no weightbearing right forefoot - ok to put weight on right heel for transitions only Patient had recent LE victorino doppler evaluation in [place] - will try to obtain results - at this time no evidence of acute ischemia to the right foot Podiatry will continue to follow
--- NOTE | 2024-07-02 09:50 | CASEMGMT ---
RN CM Face to Face with patient for initial transition planning/care coordination assessment. RN CM introduced self and role at [facility]. Patient lying in bed, alert and oriented. Patient willing to participate in assessment and is able to answer all questions appropriately. Care providers, pharmacy, and demographics verified. Strata: 2 PCP: TRA Giang Specialists: [employer] Director Of Religious Activities Néstor Preferred [facility]acy: [facility] [place] Insurance: [employer], [employer] Prescription Benefit: yes Living Will/HPOA: none LNOK: Living Arrangements: Patient lives with in a single story home with 6 steps to enter. Patient is independent at home. Transportation: self, DME/HHC: Patient has shower chair, raised toilet, crutches, walker, wheelchair, and continuous glucose monitor at home. Patient has had HHC in the past. No previous SNF. Per , is able to complete wound care at home. Patient wishes to discharge home, will monitor need for HHC pending ATB recommendations. Patient states he has no further needs or concerns at this time. CM to follow for discharge planning needs that may arise. Disposition Plan: Patient to discharge home with family support and follow-up plans in place. Will monitor for HHC and IV ATBs at discharge. Janice WASHINGTON, RN, CM
[2024-07-02 11:04] LABS: Bedside Glucose 106 mg/dL (74-106)
[2024-07-02] MEDS: Carvedilol 25 MG Tablet PO ×2 (12:01→21:16)
[2024-07-02] MEDS: Aspirin 81 MG TAB.CHEW PO (12:02)
[2024-07-02] MEDS: Famotidine 20 MG Tablet PO (12:02)
[2024-07-02] MEDS: amLODIPine 10 MG Tablet PO (12:02)
[2024-07-02] MEDS: Ferrous Sulfate 325 MG Tablet PO ×2 (12:03→16:39)
[2024-07-02] MEDS: Enoxaparin 40 MG/0.4 ML Syringe SC (12:04)
[2024-07-02] MEDS: Insulin Lispro 100 UNIT/ML INSULN.PEN SC ×3 (12:22→21:16)
[2024-07-02 14:31] LABS: Bedside Glucose 173 mg/dL (74-106)
--- NOTE | 2024-07-02 14:37 | PN.HOSP_ITS ---
Reason for Visit Reason for Visit: Diagnoses Type 2 diabetes mellitus with diabetic polyneuropathy (07/01/24) Type 2 diabetes mellitus with foot ulcer (07/01/24) Type 2 diabetes mellitus with other skin complications (07/01/24) Cellulitis of right lower limb (07/01/24) Local infection of the skin and subcutaneous tissue, unspecified (07/01/24) Non-pressure chronic ulcer of other part of unspecified foot with unspecified severity (07/01/24) Unspecified open wound, unspecified foot, initial encounter (07/01/24) Subjective Subjective Patient was seen and examined today, MRI of his foot showed evidence of osteomyelitis in his fourth ray Objective Data Objective Data Vital Signs: Vital Signs Temp Pulse Resp BP Pulse Ox O2 Del Method 97.9 F 68 16 122/66 H 98 Room Air 07/02/24 12:28 07/02/24 12:28 07/02/24 12:28 07/02/24 12:28 07/02/24 12:28 07/02/24 12:28 Oxygen Delivery Method Room Air Weight: 124.5 kg Body Mass Index (BMI) 36.3 Intake & Output: Intake and Output for Last 24 Hours 06/30/24 07/01/24 07/02/24 23:59 23:59 23:59 Intake Total 100 / 900 2775.25 / 2775.25 Balance 100 / 900 2775.25 / 2775.25 Lab / Micro Data 07/02/24 06:32 07/02/24 06:32 Labs: Laboratory Results - last 24 hr 07/01/24 16:52: WBC 13.9 H, RBC 3.14 L, Hgb 9.5 L, Hct 28.9 L, MCV 92.0, MCH 30.3, MCHC 32.9, RDW Std Deviation 40.3, RDW Coeff of Shant 11.9, Plt Count 302, MPV 9.8, Immature Gran % (Auto) 0.600, Neut % (Auto) 79.6 H, Lymph % (Auto) 8.5 L, [place] % (Auto) 9.2, Eos % (Auto) 2.0, Baso % (Auto) 0.1, Absolute Neuts (auto) 11.1 H, Absolute Lymphs (auto) 1.18, Nucleated RBC % 0, ESR 25 H, Sodium 134 L, Potassium 4.9, Chloride 106, Carbon Dioxide 22.0, Anion Gap 6, BUN 75 H, C reatinine 3.08 H, Estim Creat Clear Calc 38.60, Est GFR (MDRD) Af Amer 27 L, Est GFR (MDRD) Non-Af 23 L, BUN/Creatinine Ratio 24.4 H, Glucose 129 H, Lactic Acid 0.9, Calcium 9.4, C-React Prot Ext Range 32.90 H 07/01/24 17:07: S.aureus Protein A PCR NEGATIVE, MRSA (PCR) Negative 07/01/24 21:10: POC Glucose 79 07/02/24 01:44: POC Glucose 95 07/02/24 06:27: POC Glucose 69 L 07/02/24 06:32: WBC 14.9 H, RBC 2.97 L, Hgb 8.9 L, Hct 26.9 L, MCV 90.6, MCH 30.0, MCHC 33.1, RDW Std Deviation 39.1, RDW Coeff of Shant 11.8, Plt Count 298, MPV 10.0, Immature Gran % (Auto) 0.700, Neut % (Auto) 78.0 H, Lymph % (Auto) 8.9 L, [place] % (Auto) 10.0, Eos % (Auto) 2.1, Baso % (Auto) 0.3, Absolute Neuts (auto) 11.6 H, Absolute Lymphs (auto) 1.33, Nucleated RBC % 0, ESR 34 H, Sodium 137, Potassium 4.5, Chloride 110 H, Carbon Dioxide 20.0 L, Anion Gap 7, BUN 62 H , Creatinine 2.83 H, Estim Creat Clear Calc 41.73, Est GFR (MDRD) Af Amer 30 L, Est GFR (MDRD) Non-Af 25 L, BUN/Creatinine Ratio 21.9 H, Glucose 71 L, H emoglobin A1c 7.0 H, Calcium 9.4, Magnesium 2.2, Total Bilirubin 0.40, AST 10 L, ALT 16, Alkaline Phosphatase 97, C-React Prot Ext Range 44.00 H, Total Protein 7.4, Albumin 3.0 L, Globulin 4.4 H, Albumin/Globulin Ratio 0.7 L 07/02/24 06:59: POC Glucose 97 07/02/24 10:14: POC Glucose 106 07/02/24 12:00: POC Glucose 173 H Micro: Microbiology 07/01/24 17:01 Wound - Right Foot Wound Culture - Preliminary Mixed Gram Positive Organisms Radiography Diagnostic Testing: Radiology Impression Foot X-Ray 07/01/24 16:50 IMPRESSION: 1. No evidence fracture, malalignment or focal bony or joint space abnormality. Electronically Signed: Jay Soriano MD at 17:21 EDT , Lower Extremity MRI 07/02/24 22:09 IMPRESSION: Soft tissue defect in the fourth submetatarsal region with osteomyelitis of the head of the fourth metatarsal and base of the fourth proximal phalanx. Electronically Signed: Evert Francisco MD at 12:38 EDT , Physical Exam Const alert, oriented x3, no apparent distress and healthy appearing General Appearance: cooperative, well kempt and well developed Orientation / Consciousness: awake, oriented to person, oriented to place and oriented to time HEENT normocephalic, head/scalp atraumatic and moist oral mucous membranes Eyes PERRL, EOMs intact bilaterally and conjunctivae normal Neck supple, no JVD, thyroid normal and no carotid bruits General: trachea midline Resp normal respiratory effort, no retractions, no use of accessory muscles and clear to auscultation bilaterally Auscultation: Negative for rales, rhonchi or wheezes Cardio regular rate, regular rhythm, S1 normal heart sound, S2 normal heart sound, no murmurs, no rub and no gallops GI normal to inspection, nondistended, normoactive bowel sounds, soft to palpation, non-tender and non-distended Extremity Extremity Narrative: Right foot is wrapped with surgical dressing, this was not removed for examination of the area Neuro oriented x3, CN's II-XII intact bilaterally, no focal motor deficits and no sensory deficits noted Sensorium / Orientation: awake and alert Speech: speech normal Psych affect normal Assessment & Plan Assessment/Plan (1) Diabetes mellitus with diabetic polyneuropathy: PLAN: Plan 1. Osteomyelitis of the right fourth toe along with cellulitis of the foot compounded by type 2 diabetes-continue Zosyn at this time, it is unknown whether he will undergo surgery by podiatry. #2 type 2 diabetes-blood sugars will be monitored, sliding scale insulin will be administered as needed #3 essential hypertension-patient will remain on his present medications #4 coronary artery disease-patient will remain on his current medications #5 elevated creatinine-possibly secondary to chronic kidney disease secondary to diabetes-BMPs will be monitored Total clinical time spent by myself addressing the patient's medical issues, reviewing all of his data, and collaborating with patient's care team: 35 minutes Charges/Coding Visit Charges Inpatient E&M: 54734 Subs Hosp L2
[2024-07-02] MEDS: Juven (unflavored) Packet 1 PACKET PO (16:55)
[2024-07-02 19:17] LABS: Bedside Glucose 184 mg/dL (74-106)
[2024-07-02] MEDS: Atorvastatin Calcium 80 MG Tablet PO (21:16)
--- NOTE | 2024-07-02 22:09 | MRI_ITS ---
STUDY: MRI RIGHT FOREFOOT WITHOUT CONTRAST REASON FOR EXAM: Male, 53 years old. Infection right foot, wound on ball of foot, TECHNIQUE: Standardized fat and water weighted pulse sequences were obtained in all 3 orthogonal planes. COMPARISON: X-ray July 01, 2024 FINDINGS: There is plantar soft tissue swelling and skin thickening. There is soft tissue wound/defect in the fourth submetatarsal region. There is mild marrow edema of the fourth metatarsal head and base of the fourth proximal phalanx, series 3 images 23 and 24. There is degenerative arthrosis of the metatarsophalangeal joint of the hallux. Normal tibial and fibular sesamoids, with normal sesamoids-first metatarsal articulations. Normal interphalangeal joint of the hallux. Normal proximal and distal phalanges of the great toe. Normal medial and lateral heads of the flexor hallucis brevis tendons. Normal flexor and extensor hallucis longus tendons. Normal second through fifth metatarsophalangeal (MTP) joints. Normal interphalangeal joints of the second through fifth toes. Normal proximal, middle and distal phalanges of the second, third, and fifth toes. Normal first through fourth intermetatarsal spaces. Normal flexor and extensor tendons of the second through fifth toes. Normal visualized metatarsi. Normal intrinsic muscles of the forefoot. MRI/Lower Ext/No Jt/w/o IMPRESSION: Soft tissue defect in the fourth submetatarsal region with osteomyelitis of the head of the fourth metatarsal and base of the fourth proximal phalanx. Electronically Signed: Evert Francisco MD at 12:38 EDT ,
[2024-07-03 00:05] LABS: Bedside Glucose 204 mg/dL (74-106)
[2024-07-03 02:46] VITALS: BP 121/67; PULSE 69; RESP 14; TEMP 36.7; O2SAT 98
[2024-07-03 03:35] VITALS: BMI 34.7
[2024-07-03] MEDS: Acetaminophen 325 MG Tablet 650 MG PO ×2 (06:22→22:20)
[2024-07-03] MEDS: oxyCODONE 5 MG Tablet PO ×3 (06:23→22:21)
[2024-07-03] MEDS: Piperacil/Tazobactam 3.375 GM in 0.9% Normal Saline (50mL MB+) 50 ML IV ×3 (06:25→22:21)
[2024-07-03 06:34] VITALS: BP 113/68; PULSE 70; RESP 18; TEMP 36.8; O2SAT 95
[2024-07-03 06:56] LABS: Bedside Glucose 87 mg/dL (74-106)
[2024-07-03 08:00] VITALS: BP 119/72; PULSE 74; RESP 18; TEMP 36.9; O2SAT 97
[2024-07-03] MEDS: Enoxaparin 40 MG/0.4 ML Syringe SC (08:12)
[2024-07-03] MEDS: Juven (unflavored) Packet 1 PACKET PO ×2 (08:12→17:01)
[2024-07-03] MEDS: Aspirin 81 MG TAB.CHEW PO (08:12)
[2024-07-03] MEDS: amLODIPine 10 MG Tablet PO (08:12)
[2024-07-03] MEDS: Famotidine 20 MG Tablet PO (08:12)
[2024-07-03] MEDS: Carvedilol 25 MG Tablet PO ×2 (08:12→22:47)
[2024-07-03] MEDS: Ferrous Sulfate 325 MG Tablet PO ×3 (08:12→17:00)
--- NOTE | 2024-07-03 11:09 | PN_ITS ---
Subjective Subjective Patient was seen this morning for follow up right foot, he is resting in bed. No complanits of f/c/n/v or anything new. Objective Data Objective Data Vital Signs: Vital Signs Temp Pulse Resp BP Pulse Ox O2 Del Method 98.2 F 70 18 113/68 95 Room Air 07/03/24 06:34 07/03/24 06:34 07/03/24 06:34 07/03/24 06:34 07/03/24 06:34 07/03/24 08:03 Oxygen Delivery Method Room Air Weight: 119.2 kg Body Mass Index (BMI) 34.7 Intake & Output: Intake and Output for Last 24 Hours 07/01/24 07/02/24 07/03/24 23:59 23:59 23:59 Intake Total 100 / 900 4425.25 / 4925.25 600 / 600 Balance 100 / 900 4425.25 / 4925.25 600 / 600 Lab / Micro Data 07/02/24 06:32 07/02/24 06:32 Labs: Laboratory Results - last 24 hr 07/02/24 12:00: POC Glucose 173 H 07/02/24 16:28: POC Glucose 184 H 07/02/24 20:58: POC Glucose 204 H 07/03/24 06:20: POC Glucose 87 Micro: Microbiology 07/01/24 17:01 Wound - Right Foot Gram Stain - Final 07/01/24 17:01 Wound - Right Foot Wound Culture - Preliminary Mixed Gram Positive Organisms Radiography Diagnostic Testing: Radiology Impression Lower Extremity MRI 07/02/24 22:09 IMPRESSION: Soft tissue defect in the fourth submetatarsal region with osteomyelitis of the head of the fourth metatarsal and base of the fourth proximal phalanx. Electronically Signed: Evert Francisco MD at 12:38 EDT , Physical Exam Const alert, oriented x3 and no apparent distress Constitutional Narrative: Right foot with open wound of plantar lateral forefoot, margins are viable but there is undermining of the margins, base down to fascia/muscle layer with some purulent drainage distal lateral aspect today but less than yesterday, no probe to bone, no visible abscess, no gangrene, no streaking but there is residual localized forefoot cellulitis, no blistering, no fluctuance, no crepitus, CFT < 3 seconds to all toes with no evidence of acute ischemia to the right foot, there is decreased sensation c/w peripheral neuropathy but he does have POP to the wound site - again appears less today, no evidence of charcot neuroarthropathy or compartment syndrome Assessment & Plan Assessment/Plan (1) Cellulitis of right lower limb: (2) Diabetic foot infection: (3) Type 2 diabetes mellitus with foot ulcer: QUALIFIERS: Diabetes mellitus exterminator helper termite insulin use: unspecified exterminator helper termite insulin use status Qualified Code(s): E11.621 - Type 2 diabetes mellitus with foot ulcer; L97.509 - Non-pressure chronic ulcer of other part of unspecified foot with unspecified severity (4) Diabetes mellitus with diabetic polyneuropathy: (5) Acute osteomyelitis of right foot: PLAN: Plan Evaluation performed. Reviewed diagnostic data. There is noted plantar right forefoot wound, there was again noted to be some purulent drainage and also noted to be some cellulitis to the forefoot. Xrays right foot without evidence of gas or osteomyelitis. MRI reviewed and noted to have osteomyelitis to the head of the 4th metatarsal and base of the 4th toe proximal phalanx. A culture has been obtained and results are pending, mixed gram positive organisms - MRSA PCR negative Patient is on Zosyn at this time Wound care: betadine gauze packing with overlying dry gauze, kerlix and santo dressing - change daily Weightbearing - no weightbearing right forefoot - ok to put weight on right heel for transitions only Patient had recent LE [facility] doppler evaluation in [place] - will try to obtain results - at this time no evidence of acute ischemia to the right foot - record request has been made Discussed with patient OR debridement which was recommended given MRI and clinical findings - reviewed alternative options as well - reviewed possible benefits vs risks of each. He currently is declining OR debridement he relates he would like to consider the options and discuss further with his Podiatry will continue to follow
--- NOTE | 2024-07-03 11:16 | PCM.PN.HOSP ---
Reason for Visit Reason for Visit: Diagnoses Type 2 diabetes mellitus with diabetic polyneuropathy (07/01/24) Type 2 diabetes mellitus with foot ulcer (07/01/24) Type 2 diabetes mellitus with other skin complications (07/01/24) Cellulitis of right lower limb (07/01/24) Local infection of the skin and subcutaneous tissue, unspecified (07/01/24) Non-pressure chronic ulcer of other part of unspecified foot with unspecified severity (07/01/24) Unspecified open wound, unspecified foot, initial encounter (07/01/24) Subjective Subjective Patient was seen and examined today, he told this examiner he does not want to undergo surgery for his osteomyelitis of his foot, I told him that we would have to obtain some kind of tissue to make a diagnosis of a count of infection that he has. Patient's swab of the wound grew out mixed organisms, blood cultures pending at this time Objective Data Objective Data Vital Signs: Vital Signs Temp Pulse Resp BP Pulse Ox O2 Del Method 98.2 F 70 18 113/68 95 Room Air 07/03/24 06:34 07/03/24 06:34 07/03/24 06:34 07/03/24 06:34 07/03/24 06:34 07/03/24 08:03 Oxygen Delivery Method Room Air Weight: 119.2 kg Body Mass Index (BMI) 34.7 Intake & Output: Intake and Output for Last 24 Hours 07/01/24 07/02/24 07/03/24 23:59 23:59 23:59 Intake Total 100 / 900 4425.25 / 4925.25 600 / 600 Balance 100 / 900 4425.25 / 4925.25 600 / 600 Lab / Micro Data 07/02/24 06:32 07/02/24 06:32 Labs: Laboratory Results - last 24 hr 07/02/24 12:00: POC Glucose 173 H 07/02/24 16:28: POC Glucose 184 H 07/02/24 20:58: POC Glucose 204 H 07/03/24 06:20: POC Glucose 87 Micro: Microbiology 07/01/24 17:01 Wound - Right Foot Gram Stain - Final 07/01/24 17:01 Wound - Right Foot Wound Culture - Preliminary Mixed Gram Positive Organisms Radiography Diagnostic Testing: Radiology Impression Lower Extremity MRI 07/02/24 22:09 IMPRESSION: Soft tissue defect in the fourth submetatarsal region with osteomyelitis of the head of the fourth metatarsal and base of the fourth proximal phalanx. Electronically Signed: Evert Francisco MD at 12:38 EDT , Physical Exam Narrative alert, oriented x3, no apparent distress and healthy appearing General Appearance: cooperative, well kempt and well developed Orientation / Consciousness: awake, oriented to person, oriented to place and oriented to time HEENT normocephalic, head/scalp atraumatic and moist oral mucous membranes Eyes PERRL, EOMs intact bilaterally and conjunctivae normal Neck supple, no JVD, thyroid normal and no carotid bruits General: trachea midline Resp normal respiratory effort, no retractions, no use of accessory muscles and clear to auscultation bilaterally Auscultation: Negative for rales, rhonchi or wheezes Cardio regular rate, regular rhythm, S1 normal heart sound, S2 normal heart sound, no murmurs, no rub and no gallops GI normal to inspection, nondistended, normoactive bowel sounds, soft to palpation, non-tender and non-distended Extremity Extremity Narrative: Right foot is wrapped with surgical dressing, this was not removed for examination of the area Neuro oriented x3, CN's II-XII intact bilaterally, no focal motor deficits and no sensory deficits noted Sensorium / Orientation: awake and alert Speech: speech normal Psych affect normal Assessment & Plan Assessment/Plan (1) Acute osteomyelitis of right foot: (2) Diabetes mellitus with diabetic polyneuropathy: PLAN: Plan 1. Osteomyelitis of the right fourth toe along with cellulitis of the foot compounded by type 2 diabetes-continue Zosyn at this time, it will require a tissue diagnosis to ascertain what antibiotic best to put the patient on. Patient understands that if he elects not to have surgical excision, he will need to be on IV antibiotics for 6 to 8 weeks #2 type 2 diabetes-blood sugars will be monitored, sliding scale insulin will be administered as needed #3 essential hypertension-patient will remain on his present medications #4 coronary artery disease-patient will remain on his current medications #5 elevated creatinine-possibly secondary to chronic kidney disease secondary to diabetes-BMPs will be monitored Total clinical time spent by myself addressing the patient's medical issues, reviewing all of his data, and collaborating with patient's care team: 35 minutes Charges/Coding Visit Charges Inpatient E&M: 68095 Subs Hosp L2
[2024-07-03 12:23] LABS: Bedside Glucose 139 mg/dL (74-106)
[2024-07-03 14:00] VITALS: BP 129/69; PULSE 79; RESP 18; TEMP 36.9; O2SAT 100
[2024-07-03 16:37] LABS: Bedside Glucose 133 mg/dL (74-106)
[2024-07-03] MEDS: 0.9% Normal Saline (250mL Bag) 250 ML 15 ML IV (18:59)
[2024-07-03] MEDS: Atorvastatin Calcium 80 MG Tablet PO (22:47)
[2024-07-03 22:49] VITALS: BP 130/67; PULSE 79; RESP 18; TEMP 37.4; O2SAT 95
[2024-07-03 23:16] LABS: Bedside Glucose 139 mg/dL (74-106)
[2024-07-04] VITALS (12 sets, daily range): BP systolic 109–151; BP diastolic 53–74; PULSE 60–81; RESP 16–18; TEMP 36–37.2; O2SAT 92–97; BMI 34.9
[2024-07-04 03:18] LABS: Bedside Glucose 118 mg/dL (74-106)
--- NOTE | 2024-07-04 03:47 | EKG12_ITS ---
Test Reason : PRE-OP Blood Pressure : / mmHG Vent. Rate : 062 BPM Atrial Rate : 062 BPM P-R Int : 228 ms QRS Dur : 156 ms QT Int : 448 ms P-R-T Axes : 043 -78 034 degrees QTc Int : 454 ms Sinus rhythm with 1st degree A-V block Left axis deviation Right bundle branch block Possible Lateral infarct , age undetermined Inferior infarct (cited on or before 28-APR-2021) Abnormal ECG Confirmed by EMILY ALEXANDRA, YVONNE ([id number]), editor sound MALOU CALLAHAN ([id number]) on 07/05/2024 10:25:11 AM Referred By: ELA Confirmed By:YVONNE DIAZ MD
[2024-07-04] MEDS: oxyCODONE 5 MG Tablet PO ×3 (04:44→20:53)
[2024-07-04] MEDS: Piperacil/Tazobactam 3.375 GM in 0.9% Normal Saline (50mL MB+) 50 ML IV ×3 (04:44→20:55)
[2024-07-04] MEDS: Acetaminophen 325 MG Tablet 650 MG PO ×3 (04:44→20:53)
[2024-07-04 06:21] LABS: Bedside Glucose 105 mg/dL (74-106)
[2024-07-04 06:36] LABS: Absolute Lymphocyte Count 1.94 X10^3/uL (0.83-4.51); Absolute Neutrophil Count 10.6 X10^3/uL (2.0-7.7); Basophil# 0.03 X10^3/uL; Basophil% 0.2 % (0-1); Eosinophil# 0.41 X10^3/uL; Eosinophils% 2.8 % (0-5); Hematocrit 26.6 % (40-54); Hemoglobin 8.7 g/dL (13.0-16.5); Lymphocyte # 1.94 X10^3/ul (0.83-4.51); Mean Corp Hgb Conc 32.7 g/dL (32-36); Mean Corpuscular Hgb 30.3 pg (27.0-32.0); Mean Corpuscular Volume 92.7 fL (80-94); Mean Platelet Vol. 9.7 fl (6.2-12.0); Monocyte% 12.1 % (0-10); NRBC Flagged by Analyzer 0 % (0-5); Neutrophil # 10.64 X10^3/uL (2.7-7.7); Neutrophil % 71.4 % (47-70); POSITIVE DIFFERENTIAL YES; Platelet Count 286 K/mm3 (150-450); RBC Distribution Width CV 11.7 % (11.6-14.6); RBC Distribution Width SD 39.9 fl (35.1-43.9); Red Blood Count 2.87 M/mm3 (4.6-6.2); White Blood Count 14.9 K/mm3 (4.4-11.0)
[2024-07-04 06:39] LABS: Differential Indicated SCAN CRITERIA MET
[2024-07-04 06:57] LABS: Anion Gap 7 (5-15); BUN 56 mg/dL (7-18); BUN/Creat Ratio 20.2 RATIO (10-20); Calcium,Total 9.3 mg/dL (8.5-10.1); Chloride 108 mmol/L (98-107); Creatinine, Serum 2.77 mg/dL (0.70-1.30); EST Glomerular Filtration Rate 26 mL/min (>60); Est Glom Filt Rate - Afr Amer 31 mL/min (>60); Glucose 107 mg/dL (74-106); Potassium 4.5 mmol/L (3.5-5.1); Sodium Level 136 mmol/L (136-145)
[2024-07-04 06:58] LABS: International Normalized Ratio 1.2; Partial Thromboplast Time 36.9 Seconds (24.1-36.2); Prothrombin Time (Protime)PT. 15.3 SECONDS (11.7-14.9)
[2024-07-04] MEDS: Ondansetron 4 MG/2 ML Vial IV (07:22)
[2024-07-04 07:44] LABS: Hemoglobin A1c 6.9 % (3.8-5.6)
--- NOTE | 2024-07-04 07:50 | PRE.ANES_ITS ---
ASA Classification* ASA Classification ASA Classification: 3 Assessment & Plan Anesthesia* Anesthesia Assessment Anesthesia Assessment: Discussed sedation and/or anesthesia options, risks, benefits, and alternatives with patient/parents/legal guardian/POA. Questions invited. The patient/parents/legal guardian/POA seems to understand and agrees to proceed with anesthesia plan. Reviewed the physical assessment, medical history, allergy history and patient home medications list prior to surgery/procedure/anesthetic and documented any changes. Performed airway and anesthesia risk assessments. Anesthesia Type Anesthesia Type: MAC History Source History Obtained from:: Patient and Chart Anesthesia Focused Assessment* Temperature: 97.8 F Pulse Rate: 62 Blood Pressure: 138/74 Respiratory Rate: 18 Pulse Ox: 95 Oxygen Delivery Method: Room Air Airway Assessment Mouth opens: >3 cm Mallampati Score: III Teeth Condition: Chipped/Broken (Left lower molar is broken) Neck Range of motion (ROM): Limited ROM (Slight decrease in extension) Pertinent Findings EKG Pertinent Findings:: 07/04/2024. Sinus rhythm with 1st degree AV block LAD. RBBB. Lateral infarct. Inferior infarct Focused Labs Anesthesia Preop lab: CBC WBC 14.9 K/mm3 (4.4-11.0) H 07/04/24 06:05 RBC 2.87 M/mm3 (4.6-6.2) L 07/04/24 06:05 Hgb 8.7 g/dL (13.0-16.5) L 07/04/24 06:05 Hct 26.6 % (40-54) L 07/04/24 06:05 Plt Count 286 K/mm3 (150-450) 07/04/24 06:05 CHEMISTRY Potassium 4.5 mmol/L (3.5-5.1) 07/04/24 06:05 Sodium 136 mmol/L (136-145) 07/04/24 06:05 Magnesium 2.2 mg/dL (1.6-2.6) 07/02/24 06:32 BUN 56 mg/dL (7-18) H 07/04/24 06:05 Creatinine 2.77 mg/dL (0.70-1.30) H 07/04/24 06:05 Glucose 107 mg/dL (74-106) H 07/04/24 06:05 POC Glucose 105 mg/dL (74-106) 07/04/24 06:03 COAG PT 15.3 SECONDS (11.7-14.9) H 07/04/24 06:05 Pre-Assessment Diagnosis/Proposed Procedure Planned Operative Procedure(s): Debridement of all nonviable infected and necrotic soft tissue and bone with removal of 4th metatarsal and bone from 4th toe Anesthesia History Anesthesia History - supply chain program manager: Anesthesia History - supply chain program manager Hx Hospitalization Any Problems With Anesthesia No 07/03/24 20:44 Cholinesterase deficiency No 07/03/24 20:44 You/Your Family Experience No 07/03/24 20:44 fever (hyperthermia) with Relationship Recent Exposure to Contagious No 07/03/24 20:44 Disease Does patient have nerve No 07/03/24 20:44 stimulator Patient instructed to have device shut off --Does patient have Pacemaker No 07/04/24 04:52 or ICD? When Was Last Pacemaker Check QUESTION #4 FULL TEXT: You/Your Family Experience fever (hyperthermia) with Anesthesia Last Oral Intake Last Oral intake: Last Oral Intake NPO since 00:00 07/04/24 04:52 Meds taken in AM with sips of water? Meds patient instructed to take am of surgery Any additional information?: Yes Meds taken in AM with sips of water?: Yes PONV PONV - supply chain program manager: PONV - supply chain program manager Female HX of Motion Sickness HX of N/V After Surgery Non-Smoker Duration of Surgery greater than 60 minutes Number of Risk Factors PONV Score Height & Weight Height & Weight: Anesthesia: Height & Weight Height 6 ft 1 in 07/04/24 04:52 Weight: 120.3 kg 07/04/24 06:00 Body Mass Index (BMI) 34.9 07/04/24 06:00 Respiratory Assessment Respiratory Assessment - supply chain program manager: Respiratory Tract Infection Hx - supply chain program manager Hx Respiratory Tract Infection No 07/03/24 20:44 STOP Sleep Apnea STOP Sleep Apnea - supply chain program manager: STOP Sleep Apnea - supply chain program manager Hx Hypertension Yes 07/02/24 16:17 Hx Sleep Apnea Yes 07/01/24 19:55 CPAP No 07/01/24 19:55 BIPAP No 07/01/24 19:55 Do you snore loudly (louder than talking or can be heard Do you often feel tired/ fatigued/ sleepy during daytime? Has anyone observed you stop breathing during sleep? STOP Results Positive 07/01/24 19:55 QUESTION #5 FULL TEXT : Do you snore loudly (louder than talking or can be heard through closed doors)? 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 Specify any problems Hx of Preganancy in last 3 No 07/01/24 19:55 Months Nurse Filling Out Transfusion DREDICK 07/01/24 19:55 & Questions: Date: 07/01/24 07/01/24 19:55 Time: 19:56 07/01/24 19:55 Patient unable to answer at this time (ie. confused, unrespo /Reproduction History /Reproductive History - supply chain program manager: /Reproductive Hx- supply chain program manager Hx Now No 07/01/24 20:44 Gestational Age (in weeks): EDC: Hx Hx Para Hx Section SAB No 07/01/24 20:44 Active Medications Active Medications: Current Medications Generic Name Dose Route Start Last Admin Trade Name Freq PRN Reason Stop Dose Admin Acetaminophen 650 mg 07/01/24 19:40 07/04/24 04:44 Acetaminophen 325 Mg Tablet PO 650 mg Q6H PRN PRN Administration Pain 1-10 Or Fever >100.7 Albuterol Sulfate 2.5 mg 07/01/24 19:40 Albuterol 2.5 Mg/3 Ml Vial.Neb. INHALATION Q2H PRN PRN SOB &/OR WHEEZING Amlodipine Besylate 10 mg 07/02/24 10:00 07/03/24 08:12 Amlodipine 10 Mg Tablet PO 10 mg DAILY SAIMA Administration Protocol Aspirin 81 mg 07/02/24 08:00 07/03/24 08:12 Aspirin 81 Mg Tab.Chew PO 81 mg BREAKFAST SAIMA Administration Atorvastatin Calcium 80 mg 07/01/24 22:00 07/03/24 22:47 Atorvastatin Calcium 80 Mg Tablet PO 80 mg QHS SAIMA Administration Carvedilol 25 mg 07/01/24 22:00 07/03/24 22:47 Carvedilol 25 Mg Tablet PO 25 mg BID SAIMA Administration Protocol Enoxaparin Sodium 40 mg 07/02/24 10:00 07/03/24 08:12 Enoxaparin 40 Mg/0.4 Ml Syringe SC 40 mg DAILY SAIMA Administration Famotidine 20 mg 07/02/24 10:00 07/03/24 08:12 Famotidine 20 Mg Tablet PO 20 mg DAILY SAIMA Administration Ferrous Sulfate 325 mg 07/02/24 08:00 07/03/24 17:00 Ferrous Sulfate 325 Mg Tablet PO 325 mg TIDCM SAIMA Administration Glucagon 1 mg 07/01/24 19:40 Glucagon 1 Mg/Ml Syringe IM X1 PRN HYPOGLYCEMIA Protocol Dextrose 250 mls @ 0 mls/hr 07/01/24 19:40 Dextrose 10%-Water IV .Q0M PRN HYPOGLYCEMIA Protocol As Directed Piperacillin Sod/Tazobactam 50 mls @ 12.5 mls/hr 07/01/24 23:00 07/04/24 04:44 Sod 3.375 gm/ Sodium Chloride IV 12.5 mls/hr Q8 SAIMA Administration Sodium Chloride 250 mls @ 15 mls/hr 07/01/24 19:53 07/03/24 18:59 IV 15 mls/hr .[id number] PRN Administration Additional IVPB Infusion Sodium Chloride 250 mls @ 15 mls/hr 07/01/24 19:53 IV .[id number] PRN Saline Flush Insulin Human Lispro 0 unit 07/01/24 22:00 07/04/24 03:27 Insulin Lispro 100 Unit/Ml Insuln.Pen SC Not Given ACHS SAIMA Protocol L-Arginine/L-Glutamine/Calcium HMB 1 packet 07/02/24 17:00 07/03/24 17:01 Winston (Unflavored) Packet PO 1 packet BIDCM SAIMA Administration Melatonin 3 mg 07/01/24 19:40 Melatonin 3 Mg Tablet PO QHS PRN PRN INSOMNIA Morphine Sulfate 2 mg 07/01/24 19:40 Morphine 2 Mg/Ml Syringe IV Q3H PRN PRN Pain Score 6-10 Ondansetron HCl 4 mg 07/01/24 19:40 07/04/24 07:22 Ondansetron 4 Mg/2 Ml Vial IV 4 mg Q8H PRN PRN Administration NAUSEA/VOMITING Oxycodone HCl 5 mg 07/01/24 19:40 07/04/24 04:44 Oxycodone 5 Mg Tablet PO 5 mg Q4H PRN PRN Administration Pain Score 4-10 Senna/Docusate Sodium 2 tablet 07/01/24 19:40 Senna/Docusate Sodium 1 Tablet PO BID PRN PRN Constipation Sodium Chloride 10 - 40 ml 07/01/24 19:53 0.9% Saline Lock 10 Ml Syringe IV UD PRN SALINE FLUSH PFSH Medical History Diabetes Diabetic foot ulcer Myocardial infarct Alex's palsy Anxiety Home Medications ?Medication ?Instructions ?Recorded ?Last Taken ?Type ascorbic acid (vitamin C) 500 mg 500 mg PO BID supplement 04/28/21 04/28/21 History tablet,extended release (Vitamin C ER) aspirin 81 mg tablet 81 mg PO DAILY heart health 04/28/21 04/28/21 History carvedilol 25 mg tablet 25 mg PO BID blood pressure 04/28/21 04/28/21 History metformin 1,000 mg tablet 1,000 mg PO BID diabetes 04/28/21 04/28/21 History rosuvastatin 20 mg tablet 40 mg PO QHS 12/29/21 Unknown History sacubitril 49 mg-valsartan 51 mg 1 tab PO BID 12/29/21 Unknown History tablet (Entresto) amlodipine 10 mg tablet 10 mg PO DAILY 07/01/24 Unknown History bumetanide 1 mg tablet 1 mg PO BID 07/01/24 Unknown History famotidine 20 mg tablet 20 mg PO BID 07/01/24 Unknown History ferrous sulfate 325 mg (65 mg 325 mg PO TID 07/01/24 Unknown History iron) tablet glimepiride 2 mg tablet 2 mg PO DAILY 07/01/24 Unknown History Allergy/AdvReac Type Severity Reaction Status Date / Time No Known Allergies Allergy Verified 07/01/24 16:13 Surgical History History of ear, nose, and throat (ENT) surgery History of quadruple bypass Social History Smoking Status: Never smoker alcohol intake: never Review of Systems (Anesthesia) ROS Narrative System reviewed and no additional complaints, except as documented.
[2024-07-04 07:58] LABS: Differential Comment SCANNED; Platelet Estimate ADEQUATE (ADEQ)
[2024-07-04 08:04] LABS: Anisocytosis 1+; Ovalocyte 1+; Schistocytes RARE; Tear Drop Cell RARE
--- NOTE | 2024-07-04 08:15 | BON_PTH ---
PATIENT: GO VANESSA LOC: [facility] U#:[id number] AGE/SX: 53/M ROOM: ME319 RE07/01/[address]: Dr. William Martinez MD : 1970 BED: 1 DIS: 07/07/2024 SPEC #: [id number] RECD: 07/05/24 10:11 STATUS: ANA REQ #: [id number] HAMLET: 07/04/24 08:[address]: Hugo Key DEPT: SURGICAL PATHOLOGY RECD BY: Kat Senior ENTERED: 07/05/24 11:55 SP TYPE: Bone OTHR DR: Dr. Hugo Key, DPM Dr. Jose Romero, MD Dr. Meño Logan Dr[address] MD Rachel Mendenhall, PA Tissues: A - Toe, NOS B - Toe, NOS Procedures: Decalcification bone/plaque Surgery Specimen Level IV Comments: @ Ordering doctor for DEC edited from to @ by BRENNEN at 07/05/24 1311 @ Ordering doctor for SUIV edited from to @ by BRENNEN at 07/05/24 1311 @ Submitting doctor edited from to @ by BRENNEN at 07/05/24 1311 HEADER OPERATION: Debridement of all nonviable, infected and necrotic soft tissue PRE-OP DIAGNOSIS: Wound of foot TISSUE SUBMITTED: A- 4th metatarsal head and bone 4th toe, B- Clearance fragment 4th metatarsal head and bone 4th toe MICROSCOPIC DIAGNOSIS A. 4th metatarsal head and bone 4th toe, amputation: Pieces of bone with acute osteomyelitis. Attached piece of fibroconnective tissue with acute inflammation and abscess formation. B- Clearance fragment 4th metatarsal head and bone 4th toe, biopsy: A piece of bone with reactive changes and negative for acute osteomyelitis. A detached piece of fibroconnective tissue with acute and chronic inflammation and granulation tissue reaction. SJ: 07/08/2024 MICROSCOPIC DESCRIPTION Slides are reviewed. GROSS DESCRIPTION A. Received in fixative is one container labeled with the patient's name and designated 4th metatarsal head and bone 4th toe. The specimen consists of a piece of bone measuring 2.5 x 1.5 x 0.6cm. Also present in the container is a second piece of bone consistent with metatarsal head measuring 2.0 x 1.8 x 1.5cm. Police Liaison sections are submitted in four cassettes after decalcification. B. Received in fixative is one container labeled with the patient's name and designated Clearance fragment 4th metatarsal head and bone 4th toe. The specimen consists of a piece of bone measuring 1.5 x 0.5 x 0.3cm. The entire specimen is submitted in one cassette after decalcification. SJ.mr 07/05/2024 TC:2 CPT:[id number]
[2024-07-04] MEDS: Bupivacaine Mpf 0.5% 30 ML VIAL (08:47)
--- NOTE | 2024-07-04 08:57 | OP.PCM_ITS ---
Report of Operation Date of Procedure: 07/04/24 Pre-Operative Diagnosis: Osteomyelitis right 4th toe and 4th metatarsal, right foot, abscess right foot, wound down to necrotic bone right foot Post-Operative Diagnosis: Same Surgery/Procedure Performed:: Debridement of all nonviable, infected and necrotic soft tissue and bone from right foot Surgeon: Hugo Key senior clinical sas programmer: None Type of Anesthesia: Local and MAC Specimen's removed: 1. Bone right 4th metatarsal head and base of proximal phalanx 4th toe - sent to pathology and microbiology 2. Clearance fragment right 4th metatarsal and 4th toe - sent to pathology and microbiology Estimated Blood Loss (mL): 20mL Description of Procedure: Indications: this is a 53 year old gentleman with multiple medical problems including diabetes, has a wound to right foot down to bone and MRI consistent with osteomyelitis to the 4th metatarsal head and base of the 4th toe proximal phalanx, also noted to have abscess 4th metatarsal phalangeal joint on the right foot, there is cellulitis to the forefoot and WBC is elevated - discussed options with him and he elected to proceed with debridement of all nonviable, infected, necrotic soft tissue and bone. Reviewed procedure, possible benefits vs risks, goals, expectations - advised him the risks include but not limited to delayed or nonhealing, need for further surgery, infection, blood clots, deformity, problems walking and with shoes, bleeding, CRPS, loss of limb, loss of life. The consent form was reviewed with him and he freely signed it. No guarantees were given nor implied, no warranties were given. Operative Procedure: The patient was brought down to the operating room and was placed on the operating room table in the supine position. Patient was carefully secured to the operating room table with a safety belt around his waist. The patient was already on IV antibiotics. The patient received MAC anesthesia per the anesthesia team. A well padded pneumatic tourniquet was applied around his right ankle. A total of 10mL of 0.5% Bupivacaine plain was given as a local right foot 4th ray block after the overlying skin was cleansed with 70% Isopropyl alcohol. A timeout was performed and the patient was proper identified and the surgical plan was confirmed. Further attention was directed to the patient's right foot where there again was noted to be a deep ulceration sub 4th metatarsal head which probed to the bone of the 4th metatarsal head, there was purulence, and also cellulitis to the foot. The right foot was elevated for 3 minutes and the right ankle pneumatic tourniquet was inflated to 2500mmHg. Using a 15 blade an incision was made around the ulceration plantar right foot and longitudinally extended proximally and distally at level of the plantar forefoot, there was noted to be deep abscess at this level which was excised using a 15 blade. An incision was also made to the dorsal 4th metatarsal phalangeal joint using a 15 blade and there was noted to be purulence which was drained. There was nonviable soft tissue and bone to this site which was debrided and excised in sharp fashion using a 15 blade, this included subcutaneous tissue and fascia. The head of the 4th metatarsal and base of the proximal phalanx of the 4th toe were noted to be softer than normal, martinez and with some nonviable tissue and the bone was debrided and excised using a powered sagittal saw. The ulceration was debrided down to healthy viable soft tissue and bone. Area of debridement measured: 3.1cm x 2.2cm and down and including bone as noted above. The site was flushed out with copious amounts of normal saline solution, the dorsal skin incision was reapproximated using 3-0 Prolene but left open distally and the plantar site was left open to drain. The site was packed with 1/4in Iodoform packing and a gauze, kerlix, abd pad, and santo dressing bandage was applied. Of noted the debrided tissue was sent to pathology and microbiology and a clearance fragment was obtained from the bone and sent to pathology and microbiology. The pneumatic tourniquet was deflated at 26 minutes, there was immediate return of normal flow to the foot with return of normal temperature and CFT < 2 seconds to all toes. The patient tolerated the above procedure well and anesthesia well with no complications, post operative orders were placed and the patient was transported from the operating room to the receovery room with vital signs stable and in good condition. The patient will be followed as an inpatient. Grafts/Implants Used: None Complications None
--- NOTE | 2024-07-04 09:06 | PCM.POST.ANE ---
Anesthesia: Postop Eval I Current Vital Signs Temperature: 97.4 F Pulse Rate: 64 Blood Pressure: 109/61 Respiratory Rate: 16 Pulse Ox: 94 Oxygen Delivery Method: Room Air Assessment Airway patent: Yes Spontaneous unlabored respirations: Yes Mental status: Awake and Calm nausea: No Vomiting: No Anesthesia Complication: No Fluid Hydration Crystalloid volume administer (ml): 300 Total IV fluid infused: 300 Progress Note Anesthesia document: Postop Eval 1 completed: Yes
--- NOTE | 2024-07-04 09:27 | PCM.POSTANE2 ---
Anesthesia Postop Eval I Sum Postop Eval Completion status Anesthesia document: Postop Eval 1 completed: Yes Anesthesia Postop Eval I Summary Anesthesia Postop Eval I Summary: Anesthesia Postop Eval I: Assessment Summary Airway patent Yes 07/04/24 09:08 Spontaneous unlabored Yes 07/04/24 09:08 respirations Mental status Awake,Calm 07/04/24 09:08 nausea No 07/04/24 09:08 Vomiting No 07/04/24 09:08 Anesthesia Postop Eval I: Fluid Summary Crystalloid volume administer 300 07/04/24 09:08 (ml) Colloids volume administered ( ml) Blood Product volume administered (ml) Total IV fluid infused 300 07/04/24 09:08 Anesthesia Postop Eval I: Summary Notes Anesthesia Complication No 07/04/24 09:08 Anesthesia Complication Comment: Post-operative progress note Anesthesia: Postop Eval II Evaluation Mental status: Awake and Calm Pain Level: 0 nausea: No Vomiting: No Complications Anesthesia Complication: No
--- NOTE | 2024-07-04 09:35 | RAD_ITS ---
STUDY: X-RAY - RIGHT FOOT CLINICAL: Male, 53 years old. Postoperative evaluation. TECHNIQUE: 3 view(s) of the foot. COMPARISON: July 01, 2024 FINDINGS: Surgical resection of the distal aspect of the fourth metatarsal and the base of the proximal phalanx of the fourth metatarsal with soft tissue swelling and soft tissue gas at the operative site. Vascular calcification. No other abnormality identified. RAD/Foot min 3 Views IMPRESSION: Postoperative evaluation. Electronically Signed: Fortunato Stephens MD at 9:51 EDT ,
[2024-07-04] MEDS: Lactated Ringers 1,000 ML 15 ML IV (09:37)
[2024-07-04] MEDS: Carvedilol 25 MG Tablet PO ×2 (10:03→20:52)
[2024-07-04] MEDS: amLODIPine 10 MG Tablet PO (10:03)
[2024-07-04] MEDS: Enoxaparin 40 MG/0.4 ML Syringe SC (10:04)
[2024-07-04] MEDS: Famotidine 20 MG Tablet PO (10:04)
--- NOTE | 2024-07-04 10:27 | PCM.PN.HOSP ---
Reason for Visit Reason for Visit: Diagnoses Type 2 diabetes mellitus with diabetic polyneuropathy (07/01/24) Type 2 diabetes mellitus with foot ulcer (07/01/24) Type 2 diabetes mellitus with other skin complications (07/01/24) Cellulitis of right lower limb (07/01/24) Local infection of the skin and subcutaneous tissue, unspecified (07/01/24) Non-pressure chronic ulcer of other part of unspecified foot with unspecified severity (07/01/24) Other acute osteomyelitis, right ankle and foot (07/01/24) Unspecified open wound, unspecified foot, initial encounter (07/01/24) Subjective Subjective Patient was seen and examined today, he underwent surgery on his right foot this morning by podiatry. Objective Data Objective Data Vital Signs: Vital Signs Temp Pulse Resp BP Pulse Ox O2 Del Method 97 F L 62 18 122/64 H 92 Room Air 07/04/24 09:57 07/04/24 09:57 07/04/24 09:57 07/04/24 09:57 07/04/24 09:57 07/04/24 09:57 Oxygen Delivery Method Room Air Weight: 120.3 kg Body Mass Index (BMI) 34.9 Intake & Output: Intake and Output for Last 24 Hours 07/02/24 07/03/24 07/04/24 23:59 23:59 23:59 Intake Total 4425.25 / 4925.25 1150 / 1150 300 / 300 Balance 4425.25 / 4925.25 1150 / 1150 300 / 300 Lab / Micro Data 07/04/24 06:05 07/04/24 06:05 Labs: Laboratory Results - last 24 hr 07/03/24 12:02: POC Glucose 139 H 07/03/24 16:14: POC Glucose 133 H 07/03/24 22:45: POC Glucose 139 H 07/04/24 02:59: POC Glucose 118 H 07/04/24 06:03: POC Glucose 105 07/04/24 06:05: WBC 14.9 H, RBC 2.87 L, Hgb 8.7 L, Hct 26.6 L, MCV 92.7, MCH 30.3, MCHC 32.7, RDW Std Deviation 39.9, RDW Coeff of Shant 11.7, Plt Count 286, MPV 9.7, Immature Gran % (Auto) 0.500, Neut % (Auto) 71.4 H, Lymph % (Auto) 13.0 L, [place] % (Auto) 12.1 H, Eos % (Auto) 2.8, Baso % (Auto) 0.2, Absolute Neuts (auto) 10.6 H, Absolute Lymphs (auto) 1.94, Nucleated RBC % 0, Differential Comment SCANNED, Diff Path Review May foll, Platelet Estimate ADEQUATE, Anisocytosis 1+, Tear Drop Cells RARE, Ovalocytes 1+, Schistocytes RARE, PT 15.3 H, INR 1.2, APTT 36.9 H, Sodium 136, Potassium 4.5, Chloride 108 H, Carbon Dioxide 21.0, Anion Gap 7, BUN 56 H, Creatinine 2.77 H, Estim Creat Clear Calc 41.90, Est GFR (MDRD) Af Amer 31 L, Est GFR (MDRD) Non-Af 26 L, BUN/Creatinine Ratio 20.2 H, Glucose 107 H, Hemoglobin A1c 6.9 H, Calcium 9.3 Micro: Microbiology 07/01/24 17:01 Wound - Right Foot Gram Stain - Final 07/01/24 17:01 Wound - Right Foot Wound Culture - Preliminary [place] odontolyticus Coag Negative Staph 07/01/24 20:05 Blood Culture (Wb) - Right Hand Blood Culture - Preliminary No growth in 48 hours. Radiography Diagnostic Testing: Radiology Impression Foot X-Ray 07/04/24 09:35 IMPRESSION: Postoperative evaluation. Electronically Signed: Fortunato Stephens MD at 9:51 EDT Reading Location ID and State: [facility] / [place] , Service support , Physical Exam Const alert, oriented x3, no apparent distress and healthy appearing General Appearance: cooperative, well kempt and well developed Orientation / Consciousness: awake, oriented to person, oriented to place and oriented to time HEENT normocephalic and moist oral mucous membranes Eyes PERRL, EOMs intact bilaterally and conjunctivae normal Neck supple, no JVD, thyroid normal and no carotid bruits General: trachea midline Resp normal respiratory effort and clear to auscultation bilaterally Auscultation: Negative for rales, rhonchi or wheezes Cardio regular rate, regular rhythm, no murmurs, no rub and no gallops GI normal to inspection, nondistended, normoactive bowel sounds, soft to palpation, non-tender and non-distended Extremity Extremity Narrative: Right foot is wrapped with surgical dressing, this was not removed for examination Skin no rashes or lesions noted General Skin Exam: no breakdown Neuro oriented x3, CN's II-XII intact bilaterally, moves all extremities, no focal motor deficits and no sensory deficits noted Sensorium / Orientation: awake and alert Speech: speech normal Psych affect normal Assessment & Plan Assessment/Plan (1) Acute osteomyelitis of right foot: (2) Diabetes mellitus with diabetic polyneuropathy: PLAN: Plan 1. Osteomyelitis of the right fourth toe along with cellulitis of the foot compounded by type 2 diabetes-continue Zosyn at this time, patient underwent surgery with removal of the right fourth metatarsal head and base of proximal phalanx, patient will be seen by ID tomorrow #2 type 2 diabetes-blood sugars will be monitored, sliding scale insulin will be administered as needed #3 essential hypertension-patient will remain on his present medications #4 coronary artery disease-patient will remain on his current medications #5 elevated creatinine-possibly secondary to chronic kidney disease secondary to diabetes-BMPs will be monitored Total clinical time spent by myself addressing the patient's medical issues, reviewing all of his data, and collaborating with patient's care team: 35 minutes Charges/Coding Visit Charges Inpatient E&M: 81082 Subs Hosp L2
[2024-07-04] MEDS: Ferrous Sulfate 325 MG Tablet PO ×2 (11:29→16:21)
[2024-07-04 11:39] LABS: Bedside Glucose 122 mg/dL (74-106)
[2024-07-04 11:54] LABS: Bedside Glucose 146 mg/dL (74-106)
[2024-07-04] MEDS: Juven (unflavored) Packet 1 PACKET PO (16:21)
[2024-07-04 16:47] LABS: Bedside Glucose 134 mg/dL (74-106)
[2024-07-04] MEDS: Atorvastatin Calcium 80 MG Tablet PO (20:52)
[2024-07-04 22:07] LABS: Bedside Glucose 135 mg/dL (74-106)
[2024-07-05 03:43] VITALS: BP 127/55; PULSE 71; RESP 18; TEMP 36.6; O2SAT 97
[2024-07-05] MEDS: Acetaminophen 325 MG Tablet 650 MG PO ×2 (03:45→20:49)
[2024-07-05] MEDS: oxyCODONE 5 MG Tablet PO ×3 (03:46→20:49)
[2024-07-05] MEDS: Piperacil/Tazobactam 3.375 GM in 0.9% Normal Saline (50mL MB+) 50 ML IV ×2 (06:06→20:45)
[2024-07-05 06:49] LABS: Bedside Glucose 105 mg/dL (74-106)
[2024-07-05] MEDS: Aspirin 81 MG TAB.CHEW PO (08:01)
[2024-07-05] MEDS: Ferrous Sulfate 325 MG Tablet PO ×3 (08:01→16:29)
[2024-07-05] MEDS: Juven (unflavored) Packet 1 PACKET PO ×2 (08:01→16:31)
[2024-07-05] MEDS: Carvedilol 25 MG Tablet PO ×2 (08:01→21:02)
[2024-07-05] MEDS: Enoxaparin 40 MG/0.4 ML Syringe SC (08:02)
[2024-07-05] MEDS: amLODIPine 10 MG Tablet PO (08:03)
[2024-07-05] MEDS: Famotidine 20 MG Tablet PO (08:04)
[2024-07-05 08:17] VITALS: BP 129/62; PULSE 63; RESP 16; TEMP 36.4; O2SAT 95
[2024-07-05 08:19] VITALS: RESP 16; O2SAT 95
--- NOTE | 2024-07-05 10:45 | CON.PCM.ID_ITS ---
Assessment & Plan Assessment/Plan (1) Acute osteomyelitis of right foot: PLAN: OR 07/04/[address] Key for I&D and bone resection. Surg cx pending. Wound cx with schaalia and CoNS. On zosyn, will add vanc. Will order picc. Will follow, thank you (2) Diabetes mellitus with diabetic polyneuropathy: HPI Consult Data Date of Consult: 07/05/24 HPI Narrative Reason for Consultation: osteo HPI Narrative: GO VANESSA, is a 53 M with DM neuropathy, presented 07/01 with 4-6 weeks progressive R foot wound after having a rock in his boot. Developed worsening redness, pain, swelling, and drainage. No fever or chills. No outpt abx. Admitted here on zosyn, taken to OR 07/04/[address] Key for R 4th metatarsal resection. Feeling ok, pain controlled, no n/v/d. Full ROS performed and neg except as noted above. [facility] Medical History Diabetes Diabetic foot ulcer Myocardial infarct Alex's palsy Anxiety Home Medications ?Medication ?Instructions ?Recorded ?Last Taken ?Type ascorbic acid (vitamin C) 500 mg 500 mg PO BID supplement 04/28/21 04/28/21 History tablet,extended release (Vitamin C ER) aspirin 81 mg tablet 81 mg PO DAILY heart health 04/28/21 04/28/21 History carvedilol 25 mg tablet 25 mg PO BID blood pressure 04/28/21 04/28/21 History metformin 1,000 mg tablet 1,000 mg PO BID diabetes 04/28/21 04/28/21 History rosuvastatin 20 mg tablet 40 mg PO QHS 12/29/21 Unknown History sacubitril 49 mg-valsartan 51 mg 1 tab PO BID 12/29/21 Unknown History tablet (Entresto) amlodipine 10 mg tablet 10 mg PO DAILY 07/01/24 Unknown History bumetanide 1 mg tablet 1 mg PO BID 07/01/24 Unknown History famotidine 20 mg tablet 20 mg PO BID 07/01/24 Unknown History ferrous sulfate 325 mg (65 mg 325 mg PO TID 07/01/24 Unknown History iron) tablet glimepiride 2 mg tablet 2 mg PO DAILY 07/01/24 Unknown History Allergy/AdvReac Type Severity Reaction Status Date / Time No Known Allergies Allergy Verified 07/01/24 16:13 Surgical History History of ear, nose, and throat (ENT) surgery History of quadruple bypass Social History Smoking Status: Never smoker alcohol intake: never Physical Exam Const alert, oriented x3 and no apparent distress General Appearance: cooperative HEENT normocephalic and head/scalp atraumatic Eyes PERRL and EOMs intact bilaterally Neck supple and No nodes Resp normal air movement and clear to auscultation bilaterally Cardio regular rate and regular rhythm GI soft to palpation, non-tender and non-distended Extremity General Extremity: Negative for edema Skin Skin Narrative: R foot wrappted Neuro CN's II-XII intact bilaterally Lab / Micro Data Attestation: I reviewed the patient's lab results. 07/04/24 06:05 07/04/24 06:05 Labs: Laboratory Results - last 24 hr 07/04/24 07:33: POC Glucose 122 H 07/04/24 11:27: POC Glucose 146 H 07/04/24 16:18: POC Glucose 134 H 07/04/24 20:57: POC Glucose 135 H 07/05/24 06:05: POC Glucose 105 Micro: Microbiology 07/04/24 Unknown Bone - 4th Metatarsal Bone Wound Culture - Preliminary Gram Positive Cocci 07/04/24 Unknown Bone - 4th Metatarsal Bone Wound Culture - Preliminary No growth-Final to follow 07/01/24 17:01 Wound - Right Foot Gram Stain - Final 07/01/24 17:01 Wound - Right Foot Wound Culture - Preliminary Schaalia odontolyticus Coag Negative Staph 07/01/24 20:05 Blood Culture (Wb) - Right Hand Blood Culture - Preliminary No growth in 48 hours.
[2024-07-05] MEDS: 0.9% Normal Saline (250mL Bag) 250 ML 15 ML IV (11:09)
[2024-07-05] MEDS: Vancomycin HCl 2,000 MG in 0.9% Normal Saline (500mL Bag) 500 ML 250 MG IV (11:15)
--- NOTE | 2024-07-05 11:31 | PCM.RX.CS ---
Consult Antibiotic Management Pharmacy has been consulted to manage selected antibiotic: Vancomycin Type of Intervention Type of Consult: New start Suspected Infection Suspected Infection: Osteomyelitis Prior Doses of Antibiotics Prior Doses of Antibiotics Received/Current Regimen: Vancomycin 2000 mg IV x 1 given 07/05/24 @ 1115, patient is also on piperacillin/tazobactam. Labs Labs: Sodium 136 mmol/L (136-145) 07/04/24 06:05 Potassium 4.5 mmol/L (3.5-5.1) 07/04/24 06:05 Chloride 108 mmol/L (98-107) H 07/04/24 06:05 Carbon Dioxide 21.0 mmol/L (21.0-32.0) 07/04/24 06:05 Anion Gap 7 (5-15) 07/04/24 06:05 BUN 56 mg/dL (7-18) H 07/04/24 06:05 Creatinine 2.77 mg/dL (0.70-1.30) H 07/04/24 06:05 Est GFR (MDRD) Af Amer 31 mL/min (>60) L 07/04/24 06:05 Est GFR (MDRD) Non-Af 26 mL/min (>60) L 07/04/24 06:05 BUN/Creatinine Ratio 20.2 RATIO (10-20) H 07/04/24 06:05 Glucose 107 mg/dL (74-106) H 07/04/24 06:05 Microbiology Microbiology: Microbiology 07/04/24 Unknown Bone - 4th Metatarsal Bone Wound Culture - Preliminary Gram Positive Cocci 07/04/24 Unknown Bone - 4th Metatarsal Bone Wound Culture - Preliminary No growth-Final to follow 07/01/24 17:01 Wound - Right Foot Gram Stain - Final 07/01/24 17:01 Wound - Right Foot Wound Culture - Preliminary Scha[place] odontolyticus Coag Negative Staph 07/01/24 20:05 Blood Culture (Wb) - Right Hand Blood Culture - Preliminary No growth in 48 hours. Dosing Weight Weight used for dosin kg Estimated Creatinine Clearance Estimated Creatinine Clearance: ~ 42 Goal Trough Goal Trough: 15-20 mcg/mL Pharmacy Plan for Drug Dosing Pharmacy Plan for Drug Dosing: Vancomycin 2000 mg IV x 1 loading dose followed by 1000 mg Q12H. Pharmacy Service will continue to monitor and adjust dosing as required. Follow-Up Labs Follow-Up Labs: Trough: Vancomycin Date/Time Labs Ordered Labs to be done on [date and time ordered]: 07/06/24 @ 3337
[2024-07-05] MEDS: 0.9% Saline Lock 10 ML Syringe IV (11:48)
[2024-07-05 12:06] LABS: Bedside Glucose 148 mg/dL (74-106)
--- NOTE | 2024-07-05 12:40 | PCM.PROGNOTE ---
Subjective Subjective Patient was seen today for follow up on right foot. He is resting in bed, no calf pain, does not feel f/c/n/v Objective Data Objective Data Vital Signs: Vital Signs Temp Pulse Resp BP Pulse Ox O2 Del Method 97.6 F L 63 16 129/62 H 95 Room Air 07/05/24 08:17 07/05/24 08:17 07/05/24 08:19 07/05/24 08:17 07/05/24 08:19 07/05/24 08:19 Oxygen Delivery Method Room Air Weight: 120.3 kg Body Mass Index (BMI) 34.9 Intake & Output: Intake and Output for Last 24 Hours 07/03/24 07/04/24 07/05/24 23:59 23:59 23:59 Intake Total 1150 / 1150 1871 / 2321 1250 / 1250 Balance 1150 / 1150 1871 / 2321 1250 / 1250 Lab / Micro Data 07/04/24 06:05 07/04/24 06:05 Labs: Laboratory Results - last 24 hr 07/04/24 16:18: POC Glucose 134 H 07/04/24 20:57: POC Glucose 135 H 07/05/24 06:05: POC Glucose 105 07/05/24 11:46: POC Glucose 148 H Micro: Microbiology 07/04/24 Unknown Bone - 4th Metatarsal Bone Gram Stain - Final 07/04/24 Unknown Bone - 4th Metatarsal Bone Wound Culture - Preliminary No growth-Final to follow 07/04/24 Unknown Bone - 4th Metatarsal Bone Gram Stain - Final 07/04/24 Unknown Bone - 4th Metatarsal Bone Wound Culture - Preliminary Gram Positive Cocci 07/01/24 17:01 Wound - Right Foot Gram Stain - Final 07/01/24 17:01 Wound - Right Foot Wound Culture - Preliminary Schaalia odontolyticus Coag Negative Staph 07/01/24 20:05 Blood Culture (Wb) - Right Hand Blood Culture - Preliminary No growth in 48 hours. Physical Exam Const alert, oriented x3 and no apparent distress Constitutional Narrative: Right foot s/p debridement down to bone, tissues viable, no purulence, no maloder, no necrosis, no fluctuance, no crepitus, no visible abscess, cellulitis significantly improved, no maloder, no evidence of acute ischemia. No evidence of DVT bilateral LE. Assessment & Plan Assessment/Plan (1) Cellulitis of right lower limb: (2) Diabetic foot infection: (3) Type 2 diabetes mellitus with foot ulcer: QUALIFIERS: Diabetes mellitus terminal operator insulin use: unspecified terminal operator insulin use status Qualified Code(s): E11.621 - Type 2 diabetes mellitus with foot ulcer; L97.509 - Non-pressure chronic ulcer of other part of unspecified foot with unspecified severity (4) Diabetes mellitus with diabetic polyneuropathy: (5) Acute osteomyelitis of right foot: PLAN: Plan Evaluation performed. Reviewed diagnostic data. s/p debridement right foot 4th ray - significant improvement clinically noted today A cultures have been obtained - patient on IV antibiotics - ID on consult Wound care: Iodoform packing with overlying dry gauze, kerlix and santo dressing - change daily Weightbearing - no weightbearing right forefoot - ok to put weight on right heel for transitions only Patient had recent LE [place] doppler evaluation in [place] - still trying to to obtain results - at this time no evidence of acute ischemia to the right foot - record request has been made Podiatry will continue to follow
--- NOTE | 2024-07-05 13:47 | WOUNDNOTE ---
wound photo: right foot
--- NOTE | 2024-07-05 13:47 | WOUNDNOTE ---
wound photo: right foot
[2024-07-05 14:00] VITALS: BP 132/73; PULSE 65; RESP 16; TEMP 37.2; O2SAT 94
--- NOTE | 2024-07-05 15:47 | PCM.OP.PRO ---
Procedure Report Date of Procedure: 07/05/24 Assessment & Plan Assessment/Plan (1) Acute osteomyelitis of right foot: Procedures Radiology Radiology Access Procedures: PICC Procedure Time Out Time Out Informed consent given: Yes Consent signed: Yes Time out checklist: patient, procedure, site marked/identified, positioning of patient, supplies available and allergies confirmed Time out verified: Yes Time out date: 07/05/24 Time out time: 14:47 PICC Line Consent Screening tool completed:: Yes Consent obtained:: Yes Consent given by (patient or responsible libertarian):: PATIENT Line successful (if no, document why in comments):: Yes Insertion Reason for Insertion: Long-Term Medication Date of Insertion: 07/05/24 Ok to use: Yes Type of PICC inserted: Single Power PICC PICC Lot #: [id number] PICC Reference #: [id number] Microintroducer Used: Yes (in kit) Ultrasound/Equipment Used: Probe Cover Kit Trimmed Length (cm): 51 Insertion Length (cm): 51 Exposed Length (cm): 0 Tip Placement: Caval Atrial Junction Placement Confirmation: 3CG Insertion Vein: Left Basilic Insertion Attempts: 1 Local Anesthesia Used: Lidocaine 1% (in kit) Dressing Applied: Statlock and Tegaderm CHG Arm Measurement above site (in cm): 37 Patient Tolerated Procedure: Well Threading Difficulties: No Comments Comment: Patient identity was verified with two patient identifiers. Informed consent was obtained and time-out was completed. Hands were sanitized. The patient was positioned supine with left arm at 90 degrees. The patient's upper arm vasculature was assessed using ultrasound. Patency of the left basilic vein was confirmed and the vein was externally marked. An external measurement was obtained of 51 cm. External leads were applied to the patient's right upper chest and laterally and inferior of the umbilicus on the mid axillary line. Cap, mask, and prep gloves were donned. The underdrape was placed under the patient's arm. The site was prepped with chlorhexidine, and tourniquet was loosely applied. Prep gloves were discarded, and hands were sanitized. The sterile kit was opened with additional supplies dropped in. Sterile gown and gloves were donned, and the patient was draped. The sterile kit was assembled with needle, introducer, needless connector, and catheter lumen flushed with sterile normal saline. The marked site of insertion was anesthetized with 1% lidocaine from the kit. Patient tolerated well. The left basilic vein was then accessed using ultrasound guidance and guidewire was inserted to safety rosario. The tourniquet was released. The access needle was removed while securing the guidewire in place. The site was again anesthetized with 1% lidocaine, prior to insertion of introducer sheath and dilator. Patient tolerated the insertion well. The catheter was trimmed to a length of 51 cm. Using 3Cg guidance, the catheter was then inserted through the introducer sheath, slowly. There was no resistance on insertion. The catheter followed the expected course of the vessel using 3CG tracking. Maximal p-wave, without deflection, confirming placement in the cavoatrial junction, was obtained at an insertion length of 51 cm, leaving 0 cm external. The introducer sheath was retracted and peeled away, incrementally, while keeping the catheter secured. The stylet was removed. A flushed needleless connector was attached to the lumen. Aspiration of the lumen was performed to remove any air and confirm blood return. Blood return was verified and the lumen was flushed with 10 ml of sterile normal saline in a pulsatile fashion. The catheter was clamped with the last pulsed flush. Total number of sterile flushes used for the insertion was (5) 10 ml syringes, (1) from the kit. Finally, the insertion site was cleaned with chlorhexidine, and the catheter was secured using a StatLock. The site was covered with a Tegaderm CHG Dressing and a disinfecting cap was applied. Baseline arm circumference was obtained at the insertion site and measured 37 cm. The patient was provided with a patient education handout on PICC line care of infection prevention, heavy lifting restriction, maintaining mobility, and watching for any signs of infection. The primary nurse is aware that the PICC line is ready for use.
[2024-07-05] MEDS: Insulin Lispro 100 UNIT/ML INSULN.PEN SC (16:29)
[2024-07-05 17:01] LABS: Bedside Glucose 157 mg/dL (74-106)
--- NOTE | 2024-07-05 17:30 | PCM.PN.HOSP ---
Reason for Visit Reason for Visit: Diagnoses Type 2 diabetes mellitus with diabetic polyneuropathy (07/01/24) Type 2 diabetes mellitus with foot ulcer (07/01/24) Type 2 diabetes mellitus with other skin complications (07/01/24) Cellulitis of right lower limb (07/01/24) Local infection of the skin and subcutaneous tissue, unspecified (07/01/24) Non-pressure chronic ulcer of other part of unspecified foot with unspecified severity (07/01/24) Other acute osteomyelitis, right ankle and foot (07/01/24) Unspecified open wound, unspecified foot, initial encounter (07/01/24) Subjective Subjective Patient was seen and examined today, ID ordered a PICC line for the patient and adjusted his antibiotics. Objective Data Objective Data Vital Signs: Vital Signs Temp Pulse Resp BP Pulse Ox O2 Del Method 98.9 F 65 16 132/73 H 94 Room Air 07/05/24 14:00 07/05/24 14:00 07/05/24 14:00 07/05/24 14:00 07/05/24 14:00 07/05/24 14:00 Oxygen Delivery Method Room Air Weight: 120.3 kg Body Mass Index (BMI) 34.9 Intake & Output: Intake and Output for Last 24 Hours 07/03/24 07/04/24 07/05/24 23:59 23:59 23:59 Intake Total 1150 / 1150 1871 / 2321 2290 / 2290 Balance 1150 / 1150 1871 / 2321 2290 / 2290 Lab / Micro Data 07/04/24 06:05 07/04/24 06:05 Labs: Laboratory Results - last 24 hr 07/04/24 20:57: POC Glucose 135 H 07/05/24 06:05: POC Glucose 105 07/05/24 11:46: POC Glucose 148 H 07/05/24 16:26: POC Glucose 157 H Micro: Microbiology 07/04/24 Unknown Bone - 4th Metatarsal Bone Gram Stain - Final 07/04/24 Unknown Bone - 4th Metatarsal Bone Wound Culture - Preliminary No growth-Final to follow 07/04/24 Unknown Bone - 4th Metatarsal Bone Gram Stain - Final 07/04/24 Unknown Bone - 4th Metatarsal Bone Wound Culture - Preliminary Gram Positive Cocci 07/01/24 17:01 Wound - Right Foot Gram Stain - Final 07/01/24 17:01 Wound - Right Foot Wound Culture - Preliminary Scha[place] odontolyticus Coag Negative Staph 07/01/24 20:05 Blood Culture (Wb) - Right Hand Blood Culture - Preliminary No growth in 48 hours. Physical Exam Narrative alert, oriented x3, no apparent distress and healthy appearing General Appearance: cooperative, well kempt and well developed Orientation / Consciousness: awake, oriented to person, oriented to place and oriented to time HEENT normocephalic and moist oral mucous membranes Eyes PERRL, EOMs intact bilaterally and conjunctivae normal Neck supple, no JVD, thyroid normal and no carotid bruits General: trachea midline Resp normal respiratory effort and clear to auscultation bilaterally Auscultation: Negative for rales, rhonchi or wheezes Cardio regular rate, regular rhythm, no murmurs, no rub and no gallops GI normal to inspection, nondistended, normoactive bowel sounds, soft to palpation, non-tender and non-distended Extremity Extremity Narrative: Right foot is wrapped with surgical dressing, this was not removed for examination Skin no rashes or lesions noted General Skin Exam: no breakdown Neuro oriented x3, CN's II-XII intact bilaterally, moves all extremities, no focal motor deficits and no sensory deficits noted Sensorium / Orientation: awake and alert Speech: speech normal Psych affect normal Assessment & Plan Assessment/Plan (1) Acute osteomyelitis of right foot: (2) Diabetes mellitus with diabetic polyneuropathy: PLAN: Plan 1. Osteomyelitis of the right fourth toe along with cellulitis of the foot compounded by type 2 diabetes-continue present antibiotic coverage per ID #2 type 2 diabetes-blood sugars will be monitored, sliding scale insulin will be administered as needed #3 essential hypertension-patient will remain on his present medications #4 coronary artery disease-patient will remain on his current medications #5 elevated creatinine-possibly secondary to chronic kidney disease secondary to diabetes-BMPs will be monitored Total clinical time spent by myself addressing the patient's medical issues, reviewing all of his data, and collaborating with patient's care team: 35 minutes Charges/Coding Visit Charges Inpatient E&M: 95019 Subs Hosp L2
[2024-07-05 20:05] VITALS: BP 139/72; PULSE 69; RESP 18; TEMP 36.8; O2SAT 94
[2024-07-05 20:06] VITALS: O2SAT 94
[2024-07-05] MEDS: Atorvastatin Calcium 80 MG Tablet PO (21:02)
[2024-07-05] MEDS: Vancomycin IV 1,000 MG/200 ML BAG 200 MG IV (23:45)
[2024-07-06 00:47] LABS: Bedside Glucose 161 mg/dL (74-106)
[2024-07-06 02:48] VITALS: BP 132/61; PULSE 61; RESP 18; TEMP 36.6; O2SAT 96
[2024-07-06 05:41] VITALS: BMI 35.0
[2024-07-06 06:47] LABS: Bedside Glucose 126 mg/dL (74-106)
[2024-07-06 07:23] LABS: Anion Gap 6 (5-15); BUN 50 mg/dL (7-18); BUN/Creat Ratio 23.7 RATIO (10-20); Calcium,Total 9.4 mg/dL (8.5-10.1); Chloride 107 mmol/L (98-107); Creatinine, Serum 2.11 mg/dL (0.70-1.30); EST Glomerular Filtration Rate 35 mL/min (>60); Est Glom Filt Rate - Afr Amer 42 mL/min (>60); Estimated Creatinine Clearance 55.06 ml/min; Glucose 119 mg/dL (74-106); Potassium 4.6 mmol/L (3.5-5.1); Sodium Level 135 mmol/L (136-145)
--- NOTE | 2024-07-06 07:45 | PCM.PN.HOSP ---
Reason for Visit Reason for Visit: Diagnoses Type 2 diabetes mellitus with diabetic polyneuropathy (07/01/24) Type 2 diabetes mellitus with foot ulcer (07/01/24) Type 2 diabetes mellitus with other skin complications (07/01/24) Cellulitis of right lower limb (07/01/24) Local infection of the skin and subcutaneous tissue, unspecified (07/01/24) Non-pressure chronic ulcer of other part of unspecified foot with unspecified severity (07/01/24) Other acute osteomyelitis, right ankle and foot (07/01/24) Unspecified open wound, unspecified foot, initial encounter (07/01/24) Subjective Subjective Patient is a 53-year-old gentleman with history of diabetes mellitus type 2 admitted with osteomyelitis involving the right fourth toe. Patient underwent debridement of all nonviable, infected and necrotic soft tissue and bone from right foot by Dr. Hugo Key on 07/04/2024 Objective Data Objective Data Vital Signs: Vital Signs Temp Pulse Resp BP Pulse Ox O2 Del Method 97.8 F 61 18 132/61 H 96 Room Air 07/06/24 02:48 07/06/24 02:48 07/06/24 02:48 07/06/24 02:48 07/06/24 02:48 07/06/24 02:48 Oxygen Delivery Method Room Air Weight: 120.5 kg Body Mass Index (BMI) 35.0 Intake & Output: Intake and Output for Last 24 Hours 07/04/24 07/05/24 07/06/24 23:59 23:59 23:59 Intake Total 1870 5347.5 / 5347.5 427.75 / 427.75 Balance 1870 5347.5 / 5347.5 427.75 / 427.75 Lab / Micro Data 07/04/24 06:05 07/06/24 06:00 Labs: Laboratory Results - last 24 hr 07/05/24 11:46: POC Glucose 148 H 07/05/24 16:26: POC Glucose 157 H 07/05/24 20:52: POC Glucose 161 H 07/06/24 05:39: POC Glucose 126 H 07/06/24 06:00: Sodium 135 L, Potassium 4.6, Chloride 107, Carbon Dioxide 22.0, Anion Gap 6, BUN 50 H, Creatinine 2.11 H, Estim Creat Clear Calc 55.06, Est GFR (MDRD) Af Amer 42 L, Est GFR (MDRD) Non-Af 35 L, BUN/Creatinine Ratio 23.7 H, Glucose 119 H, Calcium 9.4 Micro: Microbiology 07/04/24 Unknown Bone - 4th Metatarsal Bone Gram Stain - Final 07/04/24 Unknown Bone - 4th Metatarsal Bone Wound Culture - Preliminary No growth-Final to follow 07/04/24 Unknown Bone - 4th Metatarsal Bone Gram Stain - Final 07/04/24 Unknown Bone - 4th Metatarsal Bone Wound Culture - Preliminary Gram Positive Cocci 07/01/24 17:01 Wound - Right Foot Gram Stain - Final 07/01/24 17:01 Wound - Right Foot Wound Culture - Preliminary [place] odontolyticus Coag Negative Staph 07/01/24 20:05 Blood Culture (Wb) - Right Hand Blood Culture - Preliminary No growth in 48 hours. Physical Exam Narrative GENERAL: cooperative HEENT: Atraumatic; normocephalic EYES; Anicteric, Normal Conjunctiva NECK; supple, normal thyroid, RESPIRATORY: Diminished to auscultation CARDIOVASCULAR: Regular S1 S2, GI: soft, normoactive bowel sounds, : No Renal angle tenderness; EXTREMITIES: Right foot in surgical dressing MUSCULOSKELETAL: no muscle wasting NEURO: Awake; no lateralizing signs. SKIN: No Rash PSYCH; Flat affect Assessment & Plan Assessment/Plan (1) Acute osteomyelitis of right foot: (2) Diabetes mellitus with diabetic polyneuropathy: PLAN: Plan Patient is a 53-year-old gentleman with history of diabetes mellitus type 2 admitted with osteomyelitis involving the right fourth toe. Patient underwent debridement of all nonviable, infected and necrotic soft tissue and bone from right foot by Dr. Hugo Key on 07/04/2024 1. Osteomyelitis involving the right fourth toe ?Patient underwent debridement of all nonviable, infected and necrotic soft tissue and bone from right foot by Dr. Hugo Key on 07/04/2024. Cultures since final results pending. Patient antibiotic therapy deferred to ID 2. Diabetes mellitus type II -patient's oral hypoglycemics held. Placed on long acting insulin, Accu-Cheks a.c. and at bedtime and covered with sliding scale insulin 3. Hypertension ? Blood pressure controlled, home medications continued with dose adjustment as needed 4. Class II obesity with BMI of 36 ? Complicating care weight loss advised 5. Acute kidney injury ? Present on admission creatinine on admission was 3.08, baseline creatinine from 02/14/2022 was 1.47. Patient kidney function has since improved and is 2.11 as of 07/06/2024 will avoid potential nephrotoxic medications. Ordered renal ultrasound 6. Dyslipidemia ?Patient is on statin therapy, continued at home dose 7. Coronary artery disease ? With previous CABG patient is on guideline directed medical therapy 8. Ischemic cardiomyopathy ?EF unknown; echo ordered for baseline assessment 9. DVT prophylaxis ? On enoxaparin Time spent in the patient's overall evaluation,decision-making process, review of diagnostic data, adjustment of management, discussion with other providers, nursing nursing and ancillary staff involved in patient's care documentation, 54 Minutes Charges/Coding Visit Charges Inpatient E&M: 51365 [facility] Hosp L3
--- NOTE | 2024-07-06 08:01 | PCM.PROGNOTE ---
Subjective Subjective Patient was seen this morning for follow up on right foot. He is resting comfortably in bed watching tv. He has no new complaints. No f/c/n/v. Objective Data Objective Data Vital Signs: Vital Signs Temp Pulse Resp BP Pulse Ox O2 Del Method 97.8 F 61 18 132/61 H 96 Room Air 07/06/24 02:48 07/06/24 02:48 07/06/24 02:48 07/06/24 02:48 07/06/24 02:48 07/06/24 02:48 Oxygen Delivery Method Room Air Weight: 120.5 kg Body Mass Index (BMI) 35.0 Intake & Output: Intake and Output for Last 24 Hours 07/04/24 07/05/24 07/06/24 23:59 23:59 23:59 Intake Total 1870 5347.5 / 5347.5 427.75 / 427.75 Balance 1870 5347.5 / 5347.5 427.75 / 427.75 Lab / Micro Data 07/04/24 06:05 07/06/24 06:00 Labs: Laboratory Results - last 24 hr 07/05/24 11:46: POC Glucose 148 H 07/05/24 16:26: POC Glucose 157 H 07/05/24 20:52: POC Glucose 161 H 07/06/24 05:39: POC Glucose 126 H 07/06/24 06:00: Sodium 135 L, Potassium 4.6, Chloride 107, Carbon Dioxide 22.0, Anion Gap 6, BUN 50 H, Creatinine 2.11 H, Estim Creat Clear Calc 55.06, Est GFR (MDRD) Af Amer 42 L, Est GFR (MDRD) Non-Af 35 L, BUN/Creatinine Ratio 23.7 H, Glucose 119 H, Calcium 9.4 Micro: Microbiology 07/04/24 Unknown Bone - 4th Metatarsal Bone Gram Stain - Final 07/04/24 Unknown Bone - 4th Metatarsal Bone Wound Culture - Preliminary No growth-Final to follow 07/04/24 Unknown Bone - 4th Metatarsal Bone Gram Stain - Final 07/04/24 Unknown Bone - 4th Metatarsal Bone Wound Culture - Preliminary Gram Positive Cocci 07/01/24 17:01 Wound - Right Foot Gram Stain - Final 07/01/24 17:01 Wound - Right Foot Wound Culture - Preliminary [place] odontolyticus Coag Negative Staph 07/01/24 20:05 Blood Culture (Wb) - Right Hand Blood Culture - Preliminary No growth in 48 hours. Physical Exam Const alert, oriented x3 and no apparent distress Constitutional Narrative: Right foot s/p debridement down to bone, tissues viable, no purulence, no maloder, no necrosis, no fluctuance, no crepitus, no visible abscess, cellulitis improved, no maloder, no evidence of acute ischemia. No evidence of DVT bilateral LE. 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 Reviewed diagnostic data. s/p debridement right foot 4th ray - improving Cultures have been obtained - patient on IV antibiotics - ID on consult Wound care: Gauze packing with overlying dry gauze, kerlix and santo dressing - change daily Weightbearing - no weightbearing right forefoot - ok to put weight on right heel for transitions only Patient had recent LE victorino doppler evaluation in [place] - at this time no evidence of acute ischemia to the right foot Podiatry will continue to follow
[2024-07-06 08:17] VITALS: BP 150/74; PULSE 70; RESP 18; TEMP 36.9; O2SAT 96
[2024-07-06] MEDS: 0.9% Normal Saline (250mL Bag) 250 ML 15 ML IV ×2 (08:35→23:38)
[2024-07-06] MEDS: Juven (unflavored) Packet 1 PACKET PO ×2 (08:35→15:57)
[2024-07-06] MEDS: Famotidine 20 MG Tablet PO (08:35)
[2024-07-06] MEDS: Carvedilol 25 MG Tablet PO ×2 (08:36→21:14)
[2024-07-06] MEDS: Ferrous Sulfate 325 MG Tablet PO ×3 (08:36→15:57)
[2024-07-06] MEDS: Acetaminophen 325 MG Tablet 650 MG PO (08:36)
[2024-07-06] MEDS: Aspirin 81 MG TAB.CHEW PO (08:36)
[2024-07-06] MEDS: amLODIPine 10 MG Tablet PO (08:36)
[2024-07-06] MEDS: Enoxaparin 40 MG/0.4 ML Syringe SC (08:37)
[2024-07-06 09:46] LABS: Pathologist Review Reviewed
[2024-07-06] MEDS: Piperacil/Tazobactam 3.375 GM in 0.9% Normal Saline (50mL MB+) 50 ML IV (10:08)
[2024-07-06 10:49] LABS: Bedside Glucose 205 mg/dL (74-106)
--- NOTE | 2024-07-06 11:07 | CASEMGMT ---
Discharge Planning A list of?HH providers including quality and resource use data and consistent with the patient's preferred geographic region, medical needs, and insurance network was created in [facility] Guide.? This list was provided to the RN AMELIA. Gloria Moreno, Discharge Planning Asst.
[2024-07-06] MEDS: Insulin Lispro 100 UNIT/ML INSULN.PEN SC (11:08)
[2024-07-06] MEDS: Vancomycin IV 1,000 MG/200 ML BAG 200 MG IV ×2 (11:49→23:38)
--- NOTE | 2024-07-06 13:13 | US_ITS ---
EXAM: US RETROPERITONEAL LIMITED, RENAL CLINICAL INDICATION: elisabeth TECHNIQUE: Limited grayscale and color Doppler sonographic evaluation of the retroperitoneum was performed. COMPARISON: No relevant prior studies available. FINDINGS: RIGHT KIDNEY: No significant abnormality. No hydronephrosis. No shadowing calculus. No perinephric collection is demonstrated. The right kidney measures 13.5 cm in length. LEFT KIDNEY: No significant abnormality. No hydronephrosis. No shadowing calculus. No perinephric collection is demonstrated. Left kidney measures 13.3 cm in length. BLADDER: Ureteral jets are not visualized. Otherwise, the urinary bladder appears normal. US/Kidney and Bladder IMPRESSION: No acute findings in the retroperitoneum. Electronically Signed: Eddie Nevarez DO at 23:04 EDT ,
--- NOTE | 2024-07-06 13:13 | ECHOCS_ITS ---
Reason For Study: DILATED CARDIOMYOPATHY Procedure This was a 2D Doppler, Color Flow transthoracic echocardiogram. The study was technically difficult. Due to poor apical accoustic windows and body habitus. Contrast injection was performed. Exam performed portable in patient room. Left Ventricle Normal LV size. Left ventricular systolic function is normal. The left ventricular ejection fraction is 60 %. Stage 1 diastolic dysfunction. No regional wall motion abnormalities noted. Right Ventricle Normal RV size. Normal systolic function. Atria The left atrium is mildly enlarged. Normal right atrium. Tricuspid Valve Normal tricuspid valve. Mild (1+) tricuspid valve insufficiency. Pulmonary artery systolic pressure is 28 mmHg. Pulmonic Valve The pulmonic valve is not well visualized. Great Vessels Normal aortic root. The pulmonary artery is normal size. Normal inferior vena cava. Pericardium/Pleural No pericardial effusion. Medication Diluted definity 4.0ml given slow IV push to enhance endocardial definition. MMode/2D Measurements & Calculations LVIDd: 6.1 cm IVSd: 1.4 cm Ao root diam: 3.7 cm LVIDs: 4.1 cm LVPWd: 0.96 cm FS: 32.5 % LAV(MOD-bp): 83.8 ml LVAd ap4: 35.7 cm2 SV(MOD-sp4): 61.3 ml LAV(MOD-bp) Indexed: 34.6 ml/m2 LVLd ap4: 9.8 cm LAV(MOD-sp2): 80.8 ml EDV(MOD-sp4): 108.3 ml LAV(MOD-sp4): 80.3 ml EDV(sp4-el): 110.6 ml LVAs ap4: 21.8 cm2 LVLs ap4: 8.5 cm ESV(MOD-sp4): 47.1 ml ESV(sp4-el): 47.2 ml EF(MOD-sp4): 56.5 % EF(sp4-el): 57.3 % SV(sp4-el): 63.4 ml LA dimension(2D): 5.7 cm LA A4 area: 25.8 cm2 TAPSE: 2.1 cm Time Measurements MV dec time: 0.30 sec Doppler Measurements & Calculations MV E max josué: 115.5 cm/sec Lat Peak E' Josué: 11.1 cm/sec MV V2 max: 127.4 cm/sec MV A max josué: 116.4 cm/sec E/E' lat: 10.4 MV max P.5 mmHg MV E/A: 0.99 MV V2 mean: 81.2 cm/sec MV mean P.9 mmHg MV V2 VTI: 43.3 cm MV P1/2t max josué: 126.3 cm/sec Ao V2 max: 128.3 cm/sec LV V1 max: 109.7 cm/sec MV P1/2t: 91.9 msec Ao max P.6 mmHg LV V1 max P.8 mmHg MV dec slope: 402.4 cm/sec2 Ao V2 mean: 94.9 cm/sec LV V1 mean P.1 mmHg Ao mean P.9 mmHg LV V1 mean: 84.8 cm/sec MVA(P1/2t): 2.4 cm2 Ao V2 VTI: 31.4 cm LV V1 VTI: 26.1 cm AV (velocity ratio): 0.83 PA V2 max: 136.7 cm/sec TR max josué: 248.4 cm/sec PA V2 mean: 95.1 cm/sec TR max P.7 mmHg ECHO/Echo Complete W/ Contrast Interpretation Summary Normal LV size. Left ventricular systolic function is normal. The left ventricular ejection fraction is 60 %. Stage 1 diastolic dysfunction. Contrast injection was performed. Ordering Physician: William Martinez Referring Physician: Karen Giang Performed By: Lorene Perez RDCS, RVT
--- NOTE | 2024-07-06 13:49 | PCM.PN.ID ---
Physical Exam Narrative Feeling ok, no fever, no n/v/d, pain controlled. Const alert and no apparent distress General Appearance: cooperative Resp normal air movement and clear to auscultation bilaterally Cardio regular rate and regular rhythm GI soft to palpation, non-tender and non-distended Skin Skin Narrative: foot wrapped ID ID: Route of nutrition/ use of supplements: [] Nutritional Intake: [] IV Site: [] Sesay Catheter: [] Assessment & Plan Assessment/Plan (1) Acute osteomyelitis of right foot: PLAN: OR 07/04/[address] Key for I&D and bone resection. Surg cx with GPC. Wound cx with schaalia and CoNS. On vanc/zosyn. May be candidate for po abx depending on final cx results. Will follow (2) Diabetes mellitus with diabetic polyneuropathy:
[2024-07-06] MEDS: Ampicillin/Sulbactam 3 GM in 0.9% Normal Saline (100mL MB+) 100 ML IV ×2 (13:53→21:11)
[2024-07-06 13:57] VITALS: BP 133/66; PULSE 68; RESP 18; TEMP 36.3; O2SAT 97
[2024-07-06 16:18] LABS: Bedside Glucose 145 mg/dL (74-106)
[2024-07-06 20:07] VITALS: BP 146/80; PULSE 65; RESP 18; TEMP 36.4; O2SAT 97
[2024-07-06] MEDS: Atorvastatin Calcium 80 MG Tablet PO (21:14)
[2024-07-06] MEDS: 0.9% Saline Lock 10 ML Syringe IV (21:15)
[2024-07-06 21:38] LABS: Bedside Glucose 160 mg/dL (74-106)
[2024-07-06 23:22] LABS: Vancomycin, Trough Level 20.1 ug/mL (5.0-15.0)
--- NOTE | 2024-07-06 23:27 | PCM.RX.CS ---
Consult Antibiotic Management Pharmacy has been consulted to manage selected antibiotic: Vancomycin Type of Intervention Type of Consult: Follow-up Labs Labs: Sodium 135 mmol/L (136-145) L 07/06/24 06:00 Potassium 4.6 mmol/L (3.5-5.1) 07/06/24 06:00 Chloride 107 mmol/L (98-107) 07/06/24 06:00 Carbon Dioxide 22.0 mmol/L (21.0-32.0) 07/06/24 06:00 Anion Gap 6 (5-15) 07/06/24 06:00 BUN 50 mg/dL (7-18) H 07/06/24 06:00 Creatinine 2.11 mg/dL (0.70-1.30) H 07/06/24 06:00 Est GFR (MDRD) Af Amer 42 mL/min (>60) L 07/06/24 06:00 Est GFR (MDRD) Non-Af 35 mL/min (>60) L 07/06/24 06:00 BUN/Creatinine Ratio 23.7 RATIO (10-20) H 07/06/24 06:00 Glucose 119 mg/dL (74-106) H 07/06/24 06:00 Vancomycin Trough 20.1 ug/mL (5.0-15.0) H 07/06/24 22:40 Microbiology Microbiology: Microbiology 07/04/24 Unknown Bone - 4th Metatarsal Bone Gram Stain - Final 07/04/24 Unknown Bone - 4th Metatarsal Bone Wound Culture - Preliminary Coag Negative Staph 07/04/24 Unknown Bone - 4th Metatarsal Bone Anaerobic Culture - Preliminary No growth in 48 hours. 07/01/24 17:01 Wound - Right Foot Gram Stain - Final 07/01/24 17:01 Wound - Right Foot Wound Culture - Final [place] odontolyticus Coag Negative Staph 07/04/24 Unknown Bone - 4th Metatarsal Bone Gram Stain - Final 07/04/24 Unknown Bone - 4th Metatarsal Bone Wound Culture - Final Coag Negative Staph 07/04/24 Unknown Bone - 4th Metatarsal Bone Anaerobic Culture - Preliminary Checking for anaerobes, further studies to follow. 07/01/24 20:05 Blood Culture (Wb) - Right Hand Blood Culture - Preliminary No growth in 48 hours. Pharmacy Plan for Drug Dosing Pharmacy Plan for Drug Dosing: Pharmacy Service will continue to monitor and adjust dosing as required. TROUGH 20.1 @ 11 HOURS. SCr DECREASED FROM 2.77 TO 2.11. NO CHANGES, FOLLOW UP TROUGH IN 24 HOURS. Follow-Up Labs Follow-Up Labs: Trough: Vancomycin Date/Time Labs Ordered Labs to be done on [date and time ordered]: 07/07 @ 5884
[2024-07-07 01:45] VITALS: BP 157/79; PULSE 67; RESP 16; TEMP 36.6; O2SAT 97
[2024-07-07] MEDS: Ampicillin/Sulbactam 3 GM in 0.9% Normal Saline (100mL MB+) 100 ML IV (05:38)
[2024-07-07 05:45] VITALS: BP 146/77; PULSE 75; RESP 16; TEMP 36.4; O2SAT 97
[2024-07-07 05:54] VITALS: BMI 35.3
[2024-07-07 06:13] LABS: Bedside Glucose 138 mg/dL (74-106)
--- NOTE | 2024-07-07 07:34 | PCM.PN.HOSP ---
Reason for Visit Reason for Visit: Diagnoses Type 2 diabetes mellitus with diabetic polyneuropathy (07/01/24) Type 2 diabetes mellitus with foot ulcer (07/01/24) Type 2 diabetes mellitus with other skin complications (07/01/24) Cellulitis of right lower limb (07/01/24) Local infection of the skin and subcutaneous tissue, unspecified (07/01/24) Non-pressure chronic ulcer of other part of unspecified foot with unspecified severity (07/01/24) Other acute osteomyelitis, right ankle and foot (07/01/24) Unspecified open wound, unspecified foot, initial encounter (07/01/24) Subjective Subjective Patient wound cultures so far positive for coag Negative Staph Objective Data Objective Data Vital Signs: Vital Signs Temp Pulse Resp BP Pulse Ox O2 Del Method 97.5 F L 75 16 146/77 H 97 Room Air 07/07/24 05:45 07/07/24 05:45 07/07/24 05:45 07/07/24 05:45 07/07/24 05:45 07/07/24 05:45 Oxygen Delivery Method Room Air Weight: 121.4 kg Body Mass Index (BMI) 35.3 Intake & Output: Intake and Output for Last 24 Hours 07/05/24 07/06/24 07/07/24 23:59 23:59 23:59 Intake Total 5347.5 / 5347.5 2039.50 / 2039.50 412 / 412 Balance 5347.5 / 5347.5 2039.50 / 2039.50 412 / 412 Lab / Micro Data 07/07/24 07:13 07/07/24 07:13 Labs: Laboratory Results - last 24 hr 07/04/24 06:05: Diff Path Review Reviewed 07/06/24 10:30: POC Glucose 205 H 07/06/24 15:52: POC Glucose 145 H 07/06/24 21:10: POC Glucose 160 H 07/06/24 22:40: Vancomycin Trough 20.1 H 07/07/24 05:50: POC Glucose 138 H Micro: Microbiology 07/01/24 20:05 Blood Culture (Wb) - Right Hand Blood Culture - Final No growth in 5 days. 07/04/24 Unknown Bone - 4th Metatarsal Bone Gram Stain - Final 07/04/24 Unknown Bone - 4th Metatarsal Bone Wound Culture - Preliminary Coag Negative Staph 07/04/24 Unknown Bone - 4th Metatarsal Bone Anaerobic Culture - Preliminary No growth in 48 hours. 07/01/24 17:01 Wound - Right Foot Gram Stain - Final 07/01/24 17:01 Wound - Right Foot Wound Culture - Final [place] odontolyticus Coag Negative Staph 07/04/24 Unknown Bone - 4th Metatarsal Bone Gram Stain - Final 07/04/24 Unknown Bone - 4th Metatarsal Bone Wound Culture - Final Coag Negative Staph 07/04/24 Unknown Bone - 4th Metatarsal Bone Anaerobic Culture - Preliminary Checking for anaerobes, further studies to follow. Radiography Diagnostic Testing: Radiology Impression Echocardiogram 07/06/24 13:13 Interpretation Summary Normal LV size. Left ventricular systolic function is normal. The left ventricular ejection fraction is 60 %. Stage 1 diastolic dysfunction. Contrast injection was performed. Ordering Physician: William Martinez Referring Physician: Karen Giang Performed By: Lorene Perez, JULIUS, RVT Renal Ultrasound 07/06/24 13:13 IMPRESSION: No acute findings in the retroperitoneum. Electronically Signed: Eddie Nevarez DO at 23:04 EDT , Physical Exam Narrative GENERAL: cooperative HEENT: Atraumatic; normocephalic EYES; Anicteric, Normal Conjunctiva NECK; supple, normal thyroid, RESPIRATORY: Diminished to auscultation CARDIOVASCULAR: Regular S1 S2, GI: soft, normoactive bowel sounds, : No Renal angle tenderness; EXTREMITIES: Right foot in surgical dressing MUSCULOSKELETAL: no muscle wasting NEURO: Awake; no lateralizing signs. SKIN: No Rash PSYCH; Flat affect Assessment & Plan Assessment/Plan (1) Acute osteomyelitis of right foot: (2) Diabetes mellitus with diabetic polyneuropathy: PLAN: Plan Patient is a 53-year-old gentleman with history of diabetes mellitus type 2 admitted with osteomyelitis involving the right fourth toe. Patient underwent debridement of all nonviable, infected and necrotic soft tissue and bone from right foot by Dr. Hugo Key on 07/04/2024 1. Osteomyelitis involving the right fourth toe ?Patient underwent debridement of all nonviable, infected and necrotic soft tissue and bone from right foot by Dr. Hugo Key on 07/04/2024. Cultures since final results pending. Patient antibiotic therapy deferred to ID ? 07/07/2024; Patient wound cultures so far positive for coag Negative Staph, sensitivities reviewed. Awaiting final recommendation from ID regarding patient's antibiotics and just 2. Diabetes mellitus type II -patient's oral hypoglycemics held. Placed on long acting insulin, Accu-Cheks a.c. and at bedtime and covered with sliding scale insulin 3. Hypertension ? Blood pressure controlled, home medications continued with dose adjustment as needed 4. Class II obesity with BMI of 36 ? Complicating care weight loss advised 5. Acute kidney injury ? Present on admission creatinine on admission was 3.08, baseline creatinine from 02/14/2022 was 1.47. Patient kidney function has since improved and is 2.11 as of 07/06/2024 will avoid potential nephrotoxic medications. Ordered renal ultrasound 6. Dyslipidemia ?Patient is on statin therapy, continued at home dose 7. Coronary artery disease ? With previous CABG patient is on guideline directed medical therapy 8. Ischemic cardiomyopathy ?EF unknown; echo ordered for baseline assessment 9. DVT prophylaxis ? On enoxaparin Time spent in the patient's overall evaluation,decision-making process, review of diagnostic data, adjustment of management, discussion with other providers, nursing nursing and ancillary staff involved in patient's care documentation,38 Minutes Charges/Coding Visit Charges Inpatient E&M: 74351 Subs Hosp L2
[2024-07-07] MEDS: Juven (unflavored) Packet 1 PACKET PO (08:16)
[2024-07-07] MEDS: Ferrous Sulfate 325 MG Tablet PO ×2 (08:16→11:07)
[2024-07-07] MEDS: Aspirin 81 MG TAB.CHEW PO (08:16)
[2024-07-07 08:17] LABS: Absolute Lymphocyte Count 1.64 X10^3/uL (0.83-4.51); Absolute Neutrophil Count 8.2 X10^3/uL (2.0-7.7); Basophil# 0.04 X10^3/uL; Basophil% 0.3 % (0-1); Eosinophil# 0.51 X10^3/uL; Eosinophils% 4.3 % (0-5); Hematocrit 28.2 % (40-54); Hemoglobin 9.2 g/dL (13.0-16.5); Lymphocyte # 1.64 X10^3/ul (0.83-4.51); Lymphocyte % 13.9 % (19-41); Mean Corp Hgb Conc 32.6 g/dL (32-36); Mean Corpuscular Hgb 29.9 pg (27.0-32.0); Mean Corpuscular Volume 91.6 fL (80-94); Mean Platelet Vol. 9.6 fl (6.2-12.0); Monocyte# 1.15 X10^3/uL; Monocyte% 9.8 % (0-10); NRBC Flagged by Analyzer 0 % (0-5); Neutrophil # 8.22 X10^3/uL (2.7-7.7); Neutrophil % 69.9 % (47-70); Platelet Count 357 K/mm3 (150-450); RBC Distribution Width CV 11.7 % (11.6-14.6); RBC Distribution Width SD 39.2 fl (35.1-43.9); Red Blood Count 3.08 M/mm3 (4.6-6.2); White Blood Count 11.8 K/mm3 (4.4-11.0)
[2024-07-07 08:48] LABS: Anion Gap 7 (5-15); BUN 45 mg/dL (7-18); BUN/Creat Ratio 27.1 RATIO (10-20); Calcium,Total 9.4 mg/dL (8.5-10.1); Chloride 108 mmol/L (98-107); Creatinine, Serum 1.66 mg/dL (0.70-1.30); EST Glomerular Filtration Rate 46 mL/min (>60); Est Glom Filt Rate - Afr Amer 56 mL/min (>60); Estimated Creatinine Clearance 70.24 ml/min; Glucose 141 mg/dL (74-106); Magnesium 2.9 mg/dL (1.6-2.6); Phosphorus 3.3 mg/dL (2.5-4.9); Potassium 4.4 mmol/L (3.5-5.1); Sodium Level 137 mmol/L (136-145)
--- NOTE | 2024-07-07 09:41 | PCM.PROGNOTE ---
Subjective Subjective Patient was seen this morning for follow up on right foot, no f/c/n/v, no new complaints. Objective Data Objective Data Vital Signs: Vital Signs Temp Pulse Resp BP Pulse Ox O2 Del Method 97.5 F L 75 16 146/77 H 97 Room Air 07/07/24 05:45 07/07/24 05:45 07/07/24 05:45 07/07/24 05:45 07/07/24 05:45 07/07/24 05:45 Oxygen Delivery Method Room Air Weight: 121.4 kg Body Mass Index (BMI) 35.3 Intake & Output: Intake and Output for Last 24 Hours 07/05/24 07/06/24 07/07/24 23:59 23:59 23:59 Intake Total 5347.5 / 5347.5 2039.50 / 2039.50 412 / 412 Balance 5347.5 / 5347.5 2039.50 / 2038.50 412 / 412 Lab / Micro Data 07/07/24 07:13 07/07/24 07:13 Labs: Laboratory Results - last 24 hr 07/04/24 06:05: Diff Path Review Reviewed 07/06/24 10:30: POC Glucose 205 H 07/06/24 15:52: POC Glucose 145 H 07/06/24 21:10: POC Glucose 160 H 07/06/24 22:40: Vancomycin Trough 20.1 H 07/07/24 05:50: POC Glucose 138 H 07/07/24 07:13: WBC 11.8 H, RBC 3.08 L, Hgb 9.2 L, Hct 28.2 L, MCV 91.6, MCH 29.9, MCHC 32.6, RDW Std Deviation 39.2, RDW Coeff of Shant 11.7, Plt Count 357, MPV 9.6, Immature Gran % (Auto) 1.800 H, Neut % (Auto) 69.9, Lymph % (Auto) 13.9 L, [place] % (Auto) 9.8, Eos % (Auto) 4.3, Baso % (Auto) 0.3, Absolute Neuts (auto) 8.2 H, Absolute Lymphs (auto) 1.64, Nucleated RBC % 0, Sodium 137, Potassium 4.4, Chloride 108 H, Carbon Dioxide 22.0, Anion Gap 7, BUN 45 H, Creatinine 1.66 H, Estim Creat Clear Calc 70.24, Est GFR (MDRD) Af Amer 56 L, Est GFR (MDRD) Non-Af 46 L, BUN/Creatinine Ratio 27.1 H, Glucose 141 H, Calcium 9.4, Phosphorus 3.3, Magnesium 2.9 H Micro: Microbiology 07/04/24 Unknown Bone - 4th Metatarsal Bone Gram Stain - Final 07/04/24 Unknown Bone - 4th Metatarsal Bone Wound Culture - Final Coag Negative Staph 07/04/24 Unknown Bone - 4th Metatarsal Bone Anaerobic Culture - Final No anaerobic bacteria isolated. 07/04/24 Unknown Bone - 4th Metatarsal Bone Gram Stain - Final 07/04/24 Unknown Bone - 4th Metatarsal Bone Wound Culture - Preliminary Staphylococcus haemolyticus 07/04/24 Unknown Bone - 4th Metatarsal Bone Anaerobic Culture - Preliminary No growth in 48 hours. 07/01/24 20:05 Blood Culture (Wb) - Right Hand Blood Culture - Final No growth in 5 days. 07/01/24 17:01 Wound - Right Foot Gram Stain - Final 07/01/24 17:01 Wound - Right Foot Wound Culture - Final [place] odontolyticus Coag Negative Staph Radiography Diagnostic Testing: Radiology Impression Echocardiogram 07/06/24 13:13 Interpretation Summary Normal LV size. Left ventricular systolic function is normal. The left ventricular ejection fraction is 60 %. Stage 1 diastolic dysfunction. Contrast injection was performed. Ordering Physician: William Martinez Referring Physician: Karen Giang Performed By: Lorene Perez, JULIUS, RVT Renal Ultrasound 07/06/24 13:13 IMPRESSION: No acute findings in the retroperitoneum. Electronically Signed: Eddie Nevarez DO at 23:04 EDT , Physical Exam Const alert, oriented x3 and no apparent distress Constitutional Narrative: Right foot s/p debridement down to bone, tissues viable and healing, no purulence, no maloder, no necrosis, no fluctuance, no crepitus, no visible abscess, cellulitis again noted to be improved, no maloder, no evidence of acute ischemia. No evidence of DVT bilateral LE. Assessment & Plan Assessment/Plan (1) Cellulitis of right lower limb: (2) Diabetic foot infection: (3) Type 2 diabetes mellitus with foot ulcer: QUALIFIERS: Diabetes mellitus senior living insulin use: unspecified senior living insulin use status Qualified Code(s): E11.621 - Type 2 diabetes mellitus with foot ulcer; L97.509 - Non-pressure chronic ulcer of other part of unspecified foot with unspecified severity (4) Diabetes mellitus with diabetic polyneuropathy: (5) Acute osteomyelitis of right foot: PLAN: Plan Evaluation performed. Reviewed diagnostic data. s/p debridement right foot 4th ray - continues to improve and is healing Cultures have been obtained - patient on IV antibiotics - ID on consult Wound care: Gauze packing with overlying dry gauze, kerlix and santo dressing - change daily Weightbearing - no weightbearing right forefoot - ok to put weight on right heel for transitions only Patient had recent LE victorino doppler evaluation in [place] - at this time no evidence of acute ischemia to the right foot Podiatry will continue to follow
--- NOTE | 2024-07-07 09:52 | PN.ID_ITS ---
Physical Exam Narrative Feeling ok, no fever, no n/v/d, discharge planned Const alert and no apparent distress Resp normal air movement and clear to auscultation bilaterally Cardio regular rate and regular rhythm GI soft to palpation, non-tender and non-distended Skin Skin Narrative: R foot wrapped ID ID: Route of nutrition/ use of supplements: [] Nutritional Intake: [] IV Site: [] Sesay Catheter: [] Assessment & Plan Assessment/Plan (1) Acute osteomyelitis of right foot: PLAN: OR 07/04/[address] Key for I&D and bone resection. Surg cx with MS- CoNS. Wound cx with MR-CoNS. Prior wound cx with schaalia and CoNS. On vanc/unasyn. Ok for home with 6 weeks po doxy and augmentin, wrote rx with stop date 08/15/24. ID followup in 2-3 weeks, d/w Dr. Martinez. Will follow (2) Diabetes mellitus with diabetic polyneuropathy:
[2024-07-07 10:14] VITALS: BP 147/75; PULSE 66; RESP 16; TEMP 36.5; O2SAT 98
[2024-07-07] MEDS: Famotidine 20 MG Tablet PO (10:18)
[2024-07-07] MEDS: amLODIPine 10 MG Tablet PO (10:18)
[2024-07-07] MEDS: Carvedilol 25 MG Tablet PO (10:18)
[2024-07-07] MEDS: Enoxaparin 40 MG/0.4 ML Syringe SC (10:18)
[2024-07-07] MEDS: Vancomycin IV 1,000 MG/200 ML BAG 200 MG IV (11:06)
--- NOTE | 2024-07-07 11:21 | DS.PCM_ITS ---
Providers Date of Admission: 07/01/24 Date of Discharge: 07/07/24 Primary Care Physician: TRA Pablo Consultations 07/01/24 19:40 Consult: Podiatry Routine Consulting Provider: Hugo Key Reason for Consult: Non healing diabetic R foot wound EMERGENT Consult: No MD Notified: Yes Date Notified: 07/01/24 Time Notified: 19:46 Method of Notification: Text 07/04/24 08:57 Consult: Onc/Wound/brand sales consultant Routine Comment: Reason for Consult:: wound right foot s/p debridement 07/04/24 10:31 Consult: Infectious Disease Routine Consulting Provider: Meño Arrieta Reason for Consult: Osteomyelitis right foot EMERGENT Consult: No MD Notified: Yes Date Notified: 07/04/24 Time Notified: 11:02 Method of Notification: Answering Service Reason For Visit: DIABETIC FOOT WOUND, ELEVATED CR Diagnosis Discharge Diagnosis (1) Acute osteomyelitis of right foot: Status: Acute Code(s): M86.171 - Other acute osteomyelitis, right ankle and foot (2) Diabetes mellitus with diabetic polyneuropathy: Status: Acute Code(s): E11.42 - Type 2 diabetes mellitus with diabetic polyneuropathy Plan Patient is a 53-year-old gentleman with history of diabetes mellitus type 2 admitted with osteomyelitis involving the right fourth toe. Patient underwent debridement of all nonviable, infected and necrotic soft tissue and bone from right foot by Dr. Hugo Key on 07/04/2024 1. Osteomyelitis involving the right fourth toe ?Patient underwent debridement of all nonviable, infected and necrotic soft tissue and bone from right foot by Dr. Hugo Key on 07/04/2024. Cultures since final results pending. Patient antibiotic therapy deferred to ID ? 07/07/2024; Patient wound cultures so far positive for coag Negative Staph, sensitivities reviewed. Awaiting final recommendation from ID regarding patient's antibiotics and just 2. Diabetes mellitus type II -patient's oral hypoglycemics held. Placed on long acting insulin, Accu-Cheks a.c. and at bedtime and covered with sliding scale insulin 3. Hypertension ? Blood pressure controlled, home medications continued with dose adjustment as needed 4. Class II obesity with BMI of 36 ? Complicating care weight loss advised 5. Acute kidney injury ? Present on admission creatinine on admission was 3.08, baseline creatinine from 02/14/2022 was 1.47. Patient kidney function has since improved and is 2.11 as of 07/06/2024 will avoid potential nephrotoxic medications. Ordered renal ultrasound 6. Dyslipidemia ?Patient is on statin therapy, continued at home dose 7. Coronary artery disease ? With previous CABG patient is on guideline directed medical therapy 8. Ischemic cardiomyopathy ?EF unknown; echo ordered for baseline assessment 9. DVT prophylaxis ? On enoxaparin Time spent in the patient's overall evaluation,decision-making process, review of diagnostic data, adjustment of management, discussion with other providers, nursing nursing and ancillary staff involved in patient's care documentation,38 Minutes Medications at Discharge Home Medications ascorbic acid (vitamin C) 500 mg tablet,extended release (Vitamin C ER) 500 mg PO BID supplement 04/28/21 aspirin 81 mg tablet 81 mg PO DAILY heart health 04/28/21 carvedilol 25 mg tablet 25 mg PO BID blood pressure 04/28/21 metformin 1,000 mg tablet 1,000 mg PO BID diabetes 04/28/21 rosuvastatin 20 mg tablet 40 mg PO QHS 12/29/21 sacubitril 49 mg-valsartan 51 mg tablet (Entresto) 1 tab PO BID 12/29/21 amlodipine 10 mg tablet 10 mg PO DAILY 07/01/24 bumetanide 1 mg tablet 1 mg PO BID 07/01/24 famotidine 20 mg tablet 20 mg PO BID 07/01/24 ferrous sulfate 325 mg (65 mg iron) tablet 325 mg PO TID 07/01/24 glimepiride 2 mg tablet 2 mg PO DAILY 07/01/24 acetaminophen 325 mg tablet 650 mg (2 x 325 mg) PO Q6H PRN PRN Pain 1-10 Or Fever >100.7 #0 tabs 07/07/24 amoxicillin 875 mg-potassium clavulanate 125 mg tablet 1 tab PO BID #78 tabs 07/07/24 arginine 7 gram-glutam 7 gram-CaHMB 1.5 [id number] oral pwd pkt (Winston (with collagen)) 1 packet PO BIDCM #60 ea 07/07/24 doxycycline hyclate 100 mg capsule 100 mg PO BID #78 caps 07/07/24 oxycodone 5 mg tablet 5 mg PO Q4H PRN PRN Pain Score 4-10 5 days #20 tabs 07/07/24 Physical Exam Narrative GENERAL: cooperative HEENT: Atraumatic; normocephalic EYES; Anicteric, Normal Conjunctiva NECK; supple, normal thyroid, RESPIRATORY: Diminished to auscultation CARDIOVASCULAR: Regular S1 S2, GI: soft, normoactive bowel sounds, : No Renal angle tenderness; EXTREMITIES: Right foot in surgical dressing MUSCULOSKELETAL: no muscle wasting NEURO: Awake; no lateralizing signs. SKIN: No Rash PSYCH; Flat affect Weight / BMI Weight Weight: 121.4 kg Body Mass Index (BMI) 35.3 ABG / Lab / Microbiology Data 07/07/24 07:13 07/07/24 07:13 Laboratory: Laboratory Results - last 24 hr 07/06/24 15:52: POC Glucose 145 H 07/06/24 21:10: POC Glucose 160 H 07/06/24 22:40: Vancomycin Trough 20.1 H 07/07/24 05:50: POC Glucose 138 H 07/07/24 07:13: WBC 11.8 H, RBC 3.08 L, Hgb 9.2 L, Hct 28.2 L, MCV 91.6, MCH 29.9, MCHC 32.6, RDW Std Deviation 39.2, RDW Coeff of Shant 11.7, Plt Count 357, MPV 9.6, Immature Gran % (Auto) 1.800 H, Neut % (Auto) 69.9, Lymph % (Auto) 13.9 L, Webb % (Auto) 9.8, Eos % (Auto) 4.3, Baso % (Auto) 0.3, Absolute Neuts (auto) 8.2 H, Absolute Lymphs (auto) 1.64, Nucleated RBC % 0, Sodium 137, Potassium 4.4, Chloride 108 H, Carbon Dioxide 22.0, Anion Gap 7, BUN 45 H, Creatinine 1.66 H, Estim Creat Clear Calc 70.24, Est GFR (MDRD) Af Amer 56 L, Est GFR (MDRD) Non-Af 46 L, BUN/Creatinine Ratio 27.1 H, Glucose 141 H, Calcium 9.4, Phosphorus 3.3, Magnesium 2.9 H Microbiology: Microbiology 07/04/24 Unknown Bone - 4th Metatarsal Bone Gram Stain - Final 07/04/24 Unknown Bone - 4th Metatarsal Bone Wound Culture - Final Coag Negative Staph 07/04/24 Unknown Bone - 4th Metatarsal Bone Anaerobic Culture - Final No anaerobic bacteria isolated. 07/04/24 Unknown Bone - 4th Metatarsal Bone Gram Stain - Final 07/04/24 Unknown Bone - 4th Metatarsal Bone Wound Culture - Preliminary Staphylococcus haemolyticus 07/04/24 Unknown Bone - 4th Metatarsal Bone Anaerobic Culture - Preliminary No growth in 48 hours. 07/01/24 20:05 Blood Culture (Wb) - Right Hand Blood Culture - Final No growth in 5 days. 07/01/24 17:01 Wound - Right Foot Gram Stain - Final 07/01/24 17:01 Wound - Right Foot Wound Culture - Final [place] odontolyticus Coag Negative Staph Radiography Diagnostic Testing: Radiology Impression Echocardiogram 07/06/24 13:13 Interpretation Summary Normal LV size. Left ventricular systolic function is normal. The left ventricular ejection fraction is 60 %. Stage 1 diastolic dysfunction. Contrast injection was performed. Ordering Physician: William Martinez Referring Physician: Karen Giang Performed By: Lorene Perez, JULIUS, RVT Renal Ultrasound 07/06/24 13:13 IMPRESSION: No acute findings in the retroperitoneum. Electronically Signed: Eddie Nevarez DO at 23:04 EDT , D/C Instructions Discharge Diet: 1800 Calorie Control Diet Meaningful Use Info Meaningful Use Meaningful Use Diagnoses (Choose all that apply): None applicable Ischemic Stroke Statin Dosing Therapy Reference: STATIN DOSE THERAPY REFERENCE: * Patients > 75 years receive moderate or high dose statin therapy. * Patients 75 years or YOUNGER should receive HIGH intensity statin dose unless contraindicated. You will be required to document reason for non-treatment if statin daily dose does not meet guidelines. HIGH DOSE STATIN THERAPY DAILY Atorvastatin > than or = to 40 mg Rosuvastatin > than or = to 20 mg Amlodipine + Atorvastatin > than or = to 2.5/40 mg Ezetimibe + Simvastatin 10/80 mg Simvastatin 80mg Discharge Plan Admission Admit Date/Time: 07/01/24 18:40 Attending Provider: William Martinez Primary Care Provider: Karen Giang Consulting Providers: Hugo Key; eDe Romero; Meño Arrieta; Jose Romero Discharge Orders/Prescriptions Prescriptions: New doxycycline hyclate 100 mg capsule 100 mg PO BID Qty: 78 0RF amoxicillin-pot clavulanate 875-125 mg tablet 1 tab PO BID Qty: 78 0RF oxycodone 5 mg Tablet 5 mg PO Q4H PRN PRN (Reason: Pain Score 4-10) 5 Days Qty: 20 0RF acetaminophen 325 mg Tablet 650 mg PO Q6H PRN PRN (Reason: Pain 1-10 Or Fever >100.7) Qty: 0 0RF Winston (with collagen) 7-7-1.5 gram Powder In Packet 1 packet PO BIDCM Qty: 60 0RF Continued carvedilol 25 mg Tablet 25 mg PO BID metformin 1,000 mg Tablet 1,000 mg PO BID aspirin 81 mg Tablet 81 mg PO DAILY ascorbic acid (vitamin C) [Vitamin C] 500 mg Tablet Extended Release 500 mg PO BID rosuvastatin 20 mg tablet 40 mg PO QHS Entresto 49-51 mg tablet 1 tab PO BID glimepiride 2 mg tablet 2 mg PO DAILY famotidine 20 mg tablet 20 mg PO BID amlodipine 10 mg tablet 10 mg PO DAILY ferrous sulfate 325 mg (65 mg iron) tablet 325 mg PO TID bumetanide 1 mg tablet 1 mg PO BID Referrals / Follow Up: Hugo Key DPM [Med Staff - Active Staff] - Within 1 Week Meño Arrieta MD [Med Staff - Active Staff] - Within 2 Weeks Karen Giang PA [Primary Care Provider] - Within 2 Weeks Disposition Disposition (needs filled in before D/C Order can be placed): Home Health Service Charges/Coding Visit Charges Inpatient E&M: 10372 Disch Hosp >30min
[2024-07-07 11:33] LABS: Bedside Glucose 180 mg/dL (74-106)
[2024-07-07] MEDS: Insulin Lispro 100 UNIT/ML INSULN.PEN SC (11:56)
[2024-07-07 12:38] VITALS: BP 160/78; PULSE 62; RESP 18; TEMP 36.8; O2SAT 96
--- NOTE | 2024-07-07 13:27 | CASEMGMT ---
Addendum entered by Cyndie Monae 07/07/24 16:04: Pt nurse made JUANCHO CISNEROS aware that pt needed to leave the hospital. He is agreeable with JUANCHO CISNEROS calling him to make aware of which [employer] accepts him. Referral requested to be sent to [facility] at this time as no answer from [facility] with dc assistant librarian leaving a message with 3 different staff members at [facility]. Addendum entered by Cyndie Monae 07/07/24 14:59: JUANCHO CISNEROS into pt room, pt has chosen [facility] followed by [facility]. Pt states if neither of these agencies accept, he has no preference. DC assistant librarian requested to send referral to [facility]. Original Note: JUANCHO CISNEROS into pt room to discuss dc planning. Pt aware that podiatry would like HHC for him. Provided pt with a HHC list created by dc assistant librarian. Pt to review and JUANCHO CISNEROS to check back on preferences.
--- NOTE | 2024-07-07 15:04 | CASEMGMT ---
Addendum entered by Gloria Moreno 07/08/24 10:00: [facility] declined d/t insurance provider. JUANCHO CM updated. Gloria Moreno DC Planning Asst. Addendum entered by Gloria Moreno 07/07/24 16:07: left to check on status of referral. Awaiting response. Gloria Moreno DC Planning Asst. Original Note: Discharge Planning HH referral sent via [facility] to [facility]. Gloria Moreno DC Planning Asst.
[2024-07-07 15:58] VITALS: BP 148/79; PULSE 88; RESP 16; TEMP 36.6; O2SAT 97
--- NOTE | 2024-07-07 16:05 | CASEMGMT ---
Discharge Planning HH referral sent to [facility] via [facility]. Gloria Moreno DC Planning Asst.
--- NOTE | 2024-07-08 10:00 | CASEMGMT ---
Addendum entered by Gloria Moreno 07/08/24 13:51: [facility] declined d/t no available education manager. Gloria Moreno DC Planning Asst. Addendum entered by Gloria Moreno 07/08/24 13:34: [facility], [facility], and [facility] declined. Gloria Moreno DC Planning Asst. Addendum entered by Gloria Moreno 07/08/24 10:41: [facility] and [facility] declined. Gloria Moreno DC Planning Asst. Original Note: Discharge Planning HH referral sent to [facility], [facility], [facility], [facility], [facility], [facility], [facility], and . [facility] and [facility] have declined. Gloria Moreno DC Planning Asst.
--- NOTE | 2024-07-08 14:53 | CASEMGMT ---
Received acceptance by [facility]. JUANCHO Crane updated as she will call pt for f/u t/c.
== END 2024-07-07 15:44 | disposition home health service (06) | DRG 629 ==
LOC: ED 18:07 → MS3 18:41
PROVIDERS: Anesthesiology; Internal Medicine; Internal Medicine Infectious Disease; Podiatrist; Admitting Provider Internal Medicine; Emergency Provider Emergency Medicine; PCP Physician Assistant Medical; Visit Provider Internal Medicine
PROC: 0QBN0ZZ Excision of Right Metatarsal, Open Approach (ICD-10-PCS; principal; 2024-07-04 08:00)
DX: E11.621 Type 2 diabetes mellitus with foot ulcer (principal); M86.171 Other acute osteomyelitis, right ankle and foot; L03.115 Cellulitis of right lower limb; L02.611 Cutaneous abscess of right foot; N17.9 Acute kidney failure, unspecified; L97.514 Non-pressure chronic ulcer of other part of right foot with necrosis of bone; E11.42 Type 2 diabetes mellitus with diabetic polyneuropathy; B95.7 Other staphylococcus as the cause of diseases classified elsewhere; I10 Essential (primary) hypertension; E66.9 Obesity, unspecified; K21.9 Gastro-esophageal reflux disease without esophagitis; I25.10 Atherosclerotic heart disease of native coronary artery without angina pectoris; E78.5 Hyperlipidemia, unspecified; E11.69 Type 2 diabetes mellitus with other specified complication; I25.5 Ischemic cardiomyopathy; I25.2 Old myocardial infarction; E11.628 Type 2 diabetes mellitus with other skin complications; Z95.1 Presence of aortocoronary bypass graft; Z68.36 Body mass index [BMI] 36.0-36.9, adult; Z79.82 Long term (current) use of aspirin; Z79.84 Long term (current) use of oral hypoglycemic drugs; Z79.899 Other long term (current) drug therapy
CPT/HCPCS: 36415; 36569; 73630; 73718; 76770; 80048; 80053; 80202; 82962; 83036; 83605; 83735; 84100; 85025; 85610; 85652; 85730; 86140; 87015; 87040; 87070; 87075; 87077; 87102; 87116; 87176; 87186; 87205; 87206; 87640; 88305; 88311; 93005; 93306; 97162; 99284; J7030; J7040; J7050; J7120; Q9957; A4216; C8929; J0295; J2405